=== PATIENT | male | born 1955 | race African-American/Black ===

== ENCOUNTER 2023-04-18 22:01 | Emergency (ER) | payer MEDICARE, MEDICAID, SELFPAY ==
--- NOTE | 2023-04-18 | ECG_ITS ---
Test Reason : FALL Blood Pressure : / mmHG Vent. Rate : 085 BPM Atrial Rate : 085 BPM P-R Int : 136 ms QRS Dur : 082 ms QT Int : 350 ms P-R-T Axes : 059 -23 029 degrees QTc Int : 416 ms Sinus rhythm with Premature atrial complexes in a pattern of bigeminy Nonspecific T wave abnormality Abnormal ECG No previous ECGs available Referred By: Generic ED Physician Electronically Signed By:Eleno Santana
--- NOTE | ~2023-04-18 | CT_ITS ---
EXAMINATION: NONCONTRAST HEAD CT NONCONTRAST CERVICAL SPINE CT INDICATION INFORMATION: Unwitnessed fall COMPARISON: None TECHNIQUE: Separate noncontrast CT examinations of the head and cervical spine were performed. Coronal and sagittal images were created for each examination at the technologist workstation. This CT examination was performed using dose optimization techniques as appropriate, variously including the following: *Automated exposure control *Adjustment of mA and/or kV according to patient size (this includes techniques or standardized protocols for targeted exams where dose is matched to indication/reason for exam; i.e. extremities or head) *Use of iterative reconstruction technique DLP: 1215 mGy-cm FINDINGS: Head: There is no evidence of acute intracranial hemorrhage or territorial infarction. No abnormal mass effect or midline shift is seen. Liang to white matter differentiation is well preserved. No extra-axial fluid collections are identified. No hydrocephalus. Proportional prominence of the ventricles and sulcal spaces is consistent with mild volume loss. There is slightly disproportionate atrophy of the cerebellum. There is no abnormal attenuation within the brain parenchyma. No acute osseous or soft tissue abnormality. The mastoid air cells and visualized portions of the paranasal sinuses are well aerated. Cervical spine: There is anatomic alignment of the vertebral bodies and posterior elements. The atlantoaxial and atlantooccipital articulations are intact. Vertebral body heights are maintained. Small endplate osteophytes present throughout the cervical spine. No evidence of acute fracture. No prevertebral soft tissue swelling. Visualized portions of the lung apices are unremarkable. The thyroid gland is unremarkable. The imaged upper thoracic esophagus is dilated, patulous and contains debris. CT/CT cervical spine wo IV con IMPRESSION: * No acute intracranial findings. * No acute fracture or malalignment of the cervical spine. * Patulous, dilated upper thoracic esophagus containing debris. Query postsurgical change or achalasia. Correlate with patient history. Recommend nonemergent esophagram as clinically indicated.
--- NOTE | ~2023-04-18 | CT_ITS ---
EXAMINATION: CT ABDOMEN AND PELVIS WITH CONTRAST CLINICAL INFORMATION: GI bleed COMPARISON: None available. TECHNIQUE: Multidetector volumetric images were obtained from the superior aspect of the liver through the pubic symphysis following administration 85 mL of Omnipaque 350 intravenous contrast. Sagittal and coronal reformatted images were obtained on the technologist's workstation. Oral contrast: No This CT examination was performed using dose optimization techniques as appropriate, variously including the following: *Automated exposure control *Adjustment of mA and/or kV according to patient size (this includes techniques or standardized protocols for targeted exams where dose is matched to indication/reason for exam; i.e. extremities or head) *Use of iterative reconstruction technique DLP: 719 mGy-cm FINDINGS: LUNG BASES: The visualized lung bases are unremarkable. LIVER, GALLBLADDER, AND BILIARY TREE: The liver is normal in size, shape, and attenuation. There are a few benign hepatic cysts. No suspicious liver lesions. No biliary ductal dilatation is present. The gallbladder is unremarkable with no evidence of radiopaque gallstones, gallbladder wall thickening, or obvious pericholecystic inflammatory changes. PANCREAS: There is a 9 mm cyst in the pancreatic body/tail junction. No pancreatic inflammation. SPLEEN: Unremarkable. ADRENAL GLANDS: Unremarkable. KIDNEYS AND URETERS: The kidneys are normal in size, shape, and attenuation. There are a few tiny renal cysts which appear simple. No follow-up imaging recommended. No hydronephrosis, hydroureter, or calculi seen. No perinephric stranding. BLADDER: Unremarkable. GASTROINTESTINAL TRACT: There is a small hiatal hernia. Distal esophagus is patulous and shows circumferential wall thickening. Small bowel unremarkable. Large amount of stool in the sigmoid colon and in particular the rectum without significant wall thickening or perirectal fat stranding. Normal appendix. ABDOMINAL WALL: No significant hernia is appreciated. LYMPH NODES: Normal. VASCULAR: Unremarkable. PELVIC VISCERA: Unremarkable. OSSEOUS STRUCTURES: No acute or suspicious osseous abnormalities. CT/CT abdomen pelvis w IV con IMPRESSION: * Circumferential wall thickening of the patulous distal esophagus. Esophagitis is considered. Recommend GI consult and esophagram if clinically indicated. * Large amount of stool in the sigmoid colon and in particular the rectum without evidence of stercoral colitis. * There is a 9 mm cyst in the pancreatic body/tail junction. Recommend MRI/MRCP for further evaluation.
[2023-04-18 22:17] VITALS: BP 114/66; BP 122/64; PULSE 56; PULSE 82; RESP 22; TEMP 37.2; O2SAT 98; BMI 21.6
--- NOTE | 2023-04-18 22:32 | PC.NURSE ---
pt has a hx of constipation, pt has a small loose brown stool
--- NOTE | 2023-04-18 23:09 | PC.NURSE ---
pt had a 2nd loose bm, Dr. Jean aware
--- NOTE | 2023-04-18 23:16 | ED.GENADULT ---
HPI - General Adult General Chief complaint: Fall Stated complaint: FELL OUT OF BED, NO LOC Time Seen by Provider: 04/18/23 23:06 Source: EMS Mode of arrival: EMS Limitations: other (Chronic TBI) History of Present Illness HPI narrative: Patient comes to the emergency room from [facility]. Seems that patient had an unwitnessed fall. Patient is poor historian, but denies pain anywhere other than abdominal cramping. Patient has no obvious injuries. On arrival, patient had 2 large bowel movements with diarrhea, no blood. Patient came without a list of medications, unclear if patient is on blood thinners. Related Data Previous Rx's Medication Instructions Recorded sodium phosphates 19 gram-7 118 ml MO DAILY 3 days #133 mL 04/19/23 gram/118 mL enema (Fleet Enema) Allergies Allergy/AdvReac Type Severity Reaction Status Date / Time Unable to Assess Allergy Unverified 04/18/23 23:11 Review of Systems Review of Systems: Complaining of abdominal cramping Yes Other (Poor historian, chronic TBI) [facility] Past Medical History Medical History (Updated 04/19/23 @ 01:46 by Tatiana Jean MD) Psychotic disorder Hyperlipidemia DVT (deep venous thrombosis) Epilepsy Diabetes mellitus Hypertension TBI (traumatic brain injury) Social History Social History Unable to assess alcohol history related to: Unknown Smoked in Last 30 Days: No Use of substances other than those prescribed or required for medical reasons: Unable to respond Advance Directives: Yes Advance Directives Information Provided: No Advance Directives on File: No Physical Exam ED Vital Signs: Vital Signs - 24 hr 04/18/23 22:17 Temperature 98.9 F Pulse Rate 82 Respiratory Rate 22 H Blood Pressure 114/66 Pulse Oximetry 98 Oxygen Delivery Method Room Air BMI result Body Mass Index 21.6 Medications Administered Generic Name Dose Route Start Last Admin Trade Name Freq PRN Reason Stop Dose Admin Sodium Chloride 1,000 mls @ 999 mls/hr 04/19/23 03:30 04/19/23 03:34 Ns IV 04/19/23 04:30 999 mls/hr .[id number] VERÓNICA Administration Discontinued Medications Generic Name Dose Route Start Last Admin Trade Name Freq PRN Reason Stop Dose Admin Iohexol 85 ml 04/19/23 02:54 04/19/23 02:55 Iohexol 350 Mg/Ml 100 Ml Infus..Btl IV 04/19/23 02:55 85 ml ONCE ONE Administration Loperamide HCl 4 mg 04/18/23 23:22 04/18/23 23:32 Loperamide Hcl 2 Mg Capsule PO 04/18/23 23:23 4 mg ONCE ONE Administration Medical Decision Making Medical Decision Making [facility] Narrative: -all of patient's labs plan -patient has had multiple diarrheal episodes in the ED. C diff pending, we do not have a list of medications, unknown if patient has been taking antibiotics, list of medications has been requesting from [facility] -patient's vitals stable, patient well-appearing -my interpretation of CT Sim: No intracranial bleed. -my interpretation of labs: White blood cell count within normal limits. Patient's hemoglobin is 10.0. No previous labs for comparison. Follow-up labs to be done at the patient's facility. Chemistry, no significant electrolyte abnormalities despite diarrhea. C diff toxin negative. Guaiac test was heme-positive. -we contacted [facility], per patient's nurse, patient's baseline hemoglobin is 9.4, hematocrit 30.9, stable since at least March 2023 -patient was given loperamide. -initials patient complain from the alf was constipation. Here, patient has had copious amounts of diarrhea. The we did not have a med list available [facility], unclear patient was given laxatives or enemas prior to arrival and they just started working -my interpretation of CT scan, there was still a large amount of stool in the sigmoid. -radiology report: Large amount of stool clusters a 9 mm cyst in the pancreas. MRCP/MRI recommended. -it is likely that patient's rectal bleeding is secondary to straining from constipation. However, patient may need a colonoscopy. We received records from [facility], patient is not on blood thinners Differential Diagnosis Differential Diagnoses: The differential diagnosis associated with the presentation includes (C diff, gastroenteritis, laxative affect) Lab Data [facility] Lab Attestation statement: I reviewed the patient's lab results. 04/19/23 00:22 04/19/23 00:22 Labs: Lab Results 04/18/23 04/19/23 04/19/23 Range/Units 23:41 00:22 01:50 WBC 5.8 (4.8-10.8) X10*3/uL RBC 4.45 L (4.60-5.80) X10*6/uL Hgb 10.0 L (14.0-18.0) g/dl Hct 33.0 L (42.0-52.0) % MCV 74.2 L (80.0-98.0) fL MCH 22.5 L (27.0-33.0) pg MCHC 30.3 L (31.0-36.0) g/dl RDW 18.4 H (11.0-16.0) % Plt Count 268 (160-400) X10*3/uL MPV 8.7 L (9.4-12.4) fL Immature Gran % (Auto) 0.3 (0.0-0.4) % Neut % (Auto) 83.2 H (45-73) % Lymph % (Auto) 8.3 L (20-40) % [place] % (Auto) 7.8 (2-11) % Eos % (Auto) 0.2 (0-4) % Baso % (Auto) 0.2 (0-2) % Lymph # (Auto) 0.5 L (1.2-4.9) X10*3/uL [place] # (Auto) 0.5 (0.1-1.2) X10*3/uL Eos # (Auto) 0.0 (0.0-0.4) X10*3/uL Baso # (Auto) 0.0 (0.0-0.2) X10*3/uL Abs Immat Gran (auto) 0.02 (0.00-0.03) X10*3/uL Absolute Neuts (auto) 4.8 (2.0-8.3) x10*3/uL Absolute Nucleated RBC 0.000 (0.0-0.012) X10*3/uL Nucleated RBC % (auto) 0.0 (0.0-0.2) /100WBC PT 22.8 H (11.1-13.3) SEC INR 1.9 H (0.9-1.1) Sodium 143 (135-145) mmol/L Potassium 3.7 (3.3-5.1) mmol/L Chloride 110 H (96-108) mmol/L Carbon Dioxide 24 (22-29) mmol/L Anion Gap 13 (12-20) BUN 20 H (9-16) mg/dL Creatinine 1.30 (0.5-1.4) mg/dL Estim Creat Clear Calc 57.7 Estimated GFR 55 Random Glucose 137 H (60-115) mg/dL Calcium 8.8 (8.4-10.2) mg/dL Magnesium 2.1 (1.6-2.6) mg/dL Total Bilirubin 0.4 (0.0-1.0) mg/dL AST 15 (5-37) U/L ALT 11 (0-40) U/L Alkaline Phosphatase 128 H (39-117) U/L Troponin I High Sens < 2.7 (<3.5-35.0) ng/L Total Protein 7.3 (6.5-8.0) g/dL Albumin 3.9 (3.5-5.0) g/dL Lipase 11 (8-78) U/L Stool Occult Blood POSITIVE (NEGATIVE) C. difficile Tox B Gene NEGATIVE (Negative) Independent Interpretation I performed an independent interpretation of an: CT Scan Radiology Impression Discussion of test interpretation with radiology: I have reviewed the radiologist's reading. Radiologist Impression: FINDINGS: Head: There is no evidence of acute intracranial hemorrhage or territorial infarction. No abnormal mass effect or midline shift is seen. Liang to white matter differentiation is well preserved. No extra-axial fluid collections are identified. No hydrocephalus. Proportional prominence of the ventricles and sulcal spaces is consistent with mild volume loss. There is slightly disproportionate atrophy of the cerebellum. There is no abnormal attenuation within the brain parenchyma. No acute osseous or soft tissue abnormality. The mastoid air cells and visualized portions of the paranasal sinuses are well aerated. Cervical spine: There is anatomic alignment of the vertebral bodies and posterior elements. The atlantoaxial and atlantooccipital articulations are intact. Vertebral body heights are maintained. Small endplate osteophytes present throughout the cervical spine. No evidence of acute fracture. No prevertebral soft tissue swelling. Visualized portions of the lung apices are unremarkable. The thyroid gland is unremarkable. The imaged upper thoracic esophagus is dilated, patulous and contains debris. CT/CT head/brain wo IV con IMPRESSION: * No acute intracranial findings. * No acute fracture or malalignment of the cervical spine. * Patulous, dilated upper thoracic esophagus containing debris. Query postsurgical change or achalasia. Correlate with patient history. Recommend nonemergent esophagram as clinically indicated. Independent Historian Clinical information obtained from an independent historian. History obtained from or confirmed by: EMS Critical Care Time Critical Care Time Critical Care Time: Yes Total Critical Care Time: 75 Attestation: I have personally provided critical care time. Time includes review of lab data, radiology results, discussion with consultants, and monitoring for potential decompensation. Intervention performed as documented. Discharge Plan Discharge Clinical Impression: Diarrhea Patient Disposition: Home, Self-Care Instructions: Acute Diarrhea (ED) Additional Instructions: Here in the emergency room, patient has had multiple large diarrhea bowel movements, negative for C diff. however, CT scan still shows a large amount of stool in the colon. Enemas may be helpful. Also, CT scan shows a cyst in the pancreas. Patient will need an MRI/MRCP through the primary care physician or gastroenterology. The stool tested positive for blood, likely secondary to straining. However, it is possible the patient may need a colonoscopy. Please follow-up with your primary care physician tomorrow. If you have any worsening or new symptoms, please return to the emergency room or call 911 Prescriptions: New Fleet Enema 19-7 gram/118 mL enema 118 ml MO DAILY 3 Days Qty: 133 3RF Referrals: Sridhar Love MD [Physician] - 04/22/23
[2023-04-18] MEDS: Loperamide HCl 2 MG CAPSULE 4 MG PO (23:32)
--- NOTE | 2023-04-18 23:44 | PC.NURSE ---
pt 3rd brown loose stool, sample obtained, pt to ct-scan
[2023-04-19 00:28] LABS: Basophils Percent Auto 0.2 % (0-2); Eosinophils Percent Auto 0.2 % (0-4); SCAN SMEAR FLAG 1
[2023-04-19 00:30] LABS: Imm Gran Abs Auto 0.02 X10*3/uL (0.00-0.03); Imm Gran Pct Auto 0.3 % (0.0-0.4); Lymphocytes Absolute Auto 0.5 X10*3/uL (1.2-4.9); Lymphocytes Percent Auto 8.3 % (20-40); Mean Corpuscular HGB Conc 30.3 g/dl (31.0-36.0); Mean Corpuscular Hemoglobin 22.5 pg (27.0-33.0); Mean Corpuscular Volume 74.2 fL (80.0-98.0); Mean Platelet Volume 8.7 fL (9.4-12.4); Monocytes Absolute Auto 0.5 X10*3/uL (0.1-1.2); Monocytes Percent Auto 7.8 % (2-11); Neutrophils Absolute Auto 4.8 x10*3/uL (2.0-8.3); Neutrophils Percent Auto 83.2 % (45-73); Platelet Count 268 X10*3/uL (160-400); Red Blood Count 4.45 X10*6/uL (4.60-5.80); Red Cell Distribution Width 18.4 % (11.0-16.0); White Blood Count 5.8 X10*3/uL (4.8-10.8)
[2023-04-19 00:35] LABS: INTERNATIONAL NORM RATIO 1.9 (0.9-1.1); Prothrombin Time 22.8 SEC (11.1-13.3)
[2023-04-19 00:38] LABS: CDiff Gene PCR NEGATIVE (Negative)
[2023-04-19 00:39] LABS: MANUAL DIFF FLAG NO; PLT ABN DIST 1
[2023-04-19 00:44] LABS: Alanine Aminotransferase 11 U/L (0-40); Albumin Level 3.9 g/dL (3.5-5.0); Alkaline Phosphatase 128 U/L (39-117); Anion Gap 13 (12-20); Aspartate Amino Transferase 15 U/L (5-37); Bilirubin Total 0.4 mg/dL (0.0-1.0); Blood Urea Nitrogen 20 mg/dL (9-16); Calcium 8.8 mg/dL (8.4-10.2); Carbon Dioxide 24 mmol/L (22-29); Chloride 110 mmol/L (96-108); Creatinine Clr Calc Pharmacy 57.7; Estimated Glomerular Filt Rate 55; Glucose Random 137 mg/dL (60-115); Lipase 11 U/L (8-78); Magnesium 2.1 mg/dL (1.6-2.6); Potassium 3.7 mmol/L (3.3-5.1); Sodium 143 mmol/L (135-145); Total Protein 7.3 g/dL (6.5-8.0)
[2023-04-19 00:57] LABS: Troponin-I High Sensitivity < 2.7 ng/L (<3.5-35.0)
--- NOTE | 2023-04-19 01:55 | PC.NURSE ---
obtained a fecal occult sample, pt tolerated well
[2023-04-19 01:58] LABS: OBS Int Ctl Valid YES; OBS1 POSITIVE (NEGATIVE)
--- NOTE | 2023-04-19 02:31 | PC.NURSE ---
pt assessed, clean and repositioned, pt has had several bouts of diarrhea, Dr. gaytan aware
--- NOTE | 2023-04-19 02:36 | PC.NURSE ---
pt to ct-scan
[2023-04-19] MEDS: iohexoL 350 MG/ML 100 ML INFUS..BTL 85 ML IV (02:55)
[2023-04-19] MEDS: 0.9 % Sodium Chloride 1,000 ML 999 ML IV (03:34)
--- NOTE | 2023-04-19 03:34 | PC.NURSE ---
NS infusing, pt unable to urinate
--- NOTE | 2023-04-19 03:49 | PC.NURSE ---
verbal report given to Nurse at [facility] in [place]
--- NOTE | 2023-04-19 03:51 | MHC.EDTECH ---
Call out to shanna at [phone] to book transport for pt, estimated eta given was [phone]
--- NOTE | 2023-04-19 04:06 | PC.NURSE ---
pt dressed to go back to SNF
== END 2023-04-19 03:49 | disposition home or self-care (01) ==
PROVIDERS: Emergency Provider Emergency Medicine; PCP Hospitalist
DX: K92.2 Gastrointestinal hemorrhage, unspecified (principal); R19.7 Diarrhea, unspecified; R51.9 Headache, unspecified; M54.2 Cervicalgia; R94.31 Abnormal electrocardiogram [ECG] [EKG]; Z79.899 Other long term (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
CPT/HCPCS: 36415; 70450; 72125; 74177; 80053; 82272; 83690; 83735; 84484; 85025; 85610; 87493; 93005; 99285; Q9967

== ENCOUNTER → 2023-04-18 22:29 | Outpatient (BNV) | payer MEDICARE, MEDICAID, SELFPAY | PROVIDERS: Emergency Provider Emergency Medicine; PCP Hospitalist; Visit Provider Internal Medicine Cardiovascular Disease | DX: I49.1 Atrial premature depolarization (principal) | CPT/HCPCS: 93010 ==

== ENCOUNTER 2023-05-04 21:08 | Emergency (ER) | payer MEDICARE, MEDICAID, SELFPAY ==
[2023-05-04 21:37] VITALS: BP 110/70; PULSE 101; O2SAT 96
[2023-05-04 21:42] VITALS: BMI 30.9
--- NOTE | 2023-05-04 21:58 | PC.NURSE ---
spoke with nurse Harrington on [place] unit: sts she observed one episode of emesis. Pt did receive all of his HS medications at facility. sts that pt speaks bulgarian, and is on a 1:1 at the facility for elopement concerns, as well as behavioral concerns.
[2023-05-04 22:25] VITALS: BP 166/96; PULSE 80; RESP 18; TEMP 36.8; O2SAT 97
--- NOTE | 2023-05-04 23:11 | ED_ITS ---
HPI - Nausea/Vomiting/Diarrhea General Chief complaint: Nausea/Vomiting/Diarrhea Stated complaint: vomiting coffee grounds Time Seen by Provider: 05/04/23 23:04 Source: patient Mode of arrival: EMS Limitations: altered mental status (Patient lacks insight as to why he is here in the emergency department) History of Present Illness HPI Narrative: 67-year-old male with a history of psychiatric disorder, hyperlipidemia, DVT, epilepsy, diabetes, hypertension, traumatic brain injury who was sent to the emergency department for evaluation of coffee-ground emesis. According to the ED nursing note the patient was constipated for a few days and had a bowel regimen today. Patient had a bowel movement at 16:30 hours and then had an episode of vomiting which was described as coffee-ground emesis. The patient has a history of traumatic brain injury and lacks insight as to why he is here in the emergency department. He has no complaints. He denied abdominal pain, he denied nausea. Related Data Previous Rx's Medication Instructions Recorded sodium phosphates 19 gram-7 118 ml LA DAILY 3 days #133 mL 04/19/23 gram/118 mL enema (Fleet Enema) Allergies Allergy/AdvReac Type Severity Reaction Status Date / Time Unable to Assess Allergy Unverified 04/18/23 23:11 Review of Systems 2 Review of Systems: Yes all other systems are reviewed and are negative PMFSH Past Medical History Medical History Psychotic disorder Hyperlipidemia DVT (deep venous thrombosis) Epilepsy Diabetes mellitus Hypertension TBI (traumatic brain injury) Social History Social History Unable to assess alcohol history related to: Unknown Advance Directives: No Advance Directives Information Provided: No Physical Exam 2 Vital Signs: Vital Signs: Last Vital Signs Temp 98.3 F 05/04/23 22:25 Pulse 80 05/04/23 22:25 Resp 18 05/04/23 22:25 BP 166/96 H 05/04/23 22:25 Pulse Ox 97 05/04/23 22:25 O2 Del Method Room Air 05/04/23 22:25 BMI result Body Mass Index 30.9 Vital signs revealed an elevated blood pressure of 166/96 otherwise unremarkable Exam: General: Awake, oriented to person, lacks insight as to why he is here in the emergency 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 manager: Normocephalic, atraumatic EENT: PERRL, Lids normal, sclera normal, conjunctiva normal, nose normal , ears normal, throat without erythema or exudates Neck: Supple, no adenopathy, no trachea midline or C-spine tenderness Lung: breath sounds symmetric, no wheezing, rales or rhonchi Chest: symmetric movement, nontender Heart: regular rate and rhythm, normal S1, S2 no murmurs or rubs Abdomen: soft, non-tender, nondistended, normal bowel sounds Back: no vertebral tenderness, no CVAT Extremities: no deformities, moves all extremities symmetrically Neuro: Awake, alert, oriented to person, cranial nerves intact, moves all extremities symmetrically Psych: Pleasant, cooperative Medications Administered Discontinued Medications Generic Name Dose Route Start Last Admin Trade Name Freq PRN Reason Stop Dose Admin Lorazepam 2 mg 05/05/23 00:04 05/05/23 00:10 Lorazepam 1 Mg Tablet PO 05/05/23 00:05 2 mg ONCE STA Administration Medical Decision Making Medical Decision Making [facility] Narrative: 67-year-old male with a history of psychiatric disorder, hyperlipidemia, DVT, epilepsy, diabetes, hypertension, traumatic brain injury who was sent to the emergency department for evaluation of coffee-ground emesis x1 episode that occurred around 16:30 hours. The patient has a history of traumatic brain injury and lacks insight as to why he is here in the emergency department. He has no complaints. He denied abdominal pain, he denied nausea. Exam was unremarkable. Following evaluation was ordered: CBC, CMP, lipase, PT/INR, PTT 00:59 My interpretation of the patient's laboratory evaluation is as follows: WBC low 4300. Anemia with an H&H of 8.9 and 28.7 with a low MCV of 70.7. This is compared to an H&H of 10 and 33 from 04/19/2023. Patient's BUN was 18 which was similar to his previous BUN, creatinine was normal 0.95. The rest the CMP was normal. Patient did have a drop in his H&H but no significant elevation in his BUN, patient has had no further episodes of vomiting since he has been here in the emergency department. At this time, I do not think that the patient needs to be hospitalized can be sent back to [facility] and they can follow his H&H. I do not have a medication list on this patient, but I will recommend that he be placed on Prilosec 20 mg once a day if he is not already taking H2 dilshad. Differential Diagnosis Differential Diagnoses: The differential diagnosis associated with the presentation includes Differential diagnosis includes was not limited to upper GI bleed, viral syndrome, electrolyte abnormalities, anemia Admission/Observation Consideration of admission/observation: Escalation of care including admission/observation considered Lab Data [facility] Lab Attestation statement: I reviewed the patient's lab results. See MDM above 05/05/23 00:29 05/04/23 22:58 Labs: Lab Results 05/04/23 05/05/23 Range/Units 22:58 00:29 WBC 4.3 L (4.8-10.8) X10*3/uL RBC 4.06 L (4.60-5.80) X10*6/uL Hgb 8.9 L (14.0-18.0) g/dl Hct 28.7 L (42.0-52.0) % MCV 70.7 L (80.0-98.0) fL MCH 21.9 L (27.0-33.0) pg MCHC 31.0 (31.0-36.0) g/dl RDW 20.1 H (11.0-16.0) % Plt Count 351 D (160-400) X10*3/uL MPV 8.7 L (9.4-12.4) fL Immature Gran % (Auto) 0.2 (0.0-0.4) % Neut % (Auto) 67.0 (45-73) % Lymph % (Auto) 22.8 (20-40) % [place] % (Auto) 8.8 (2-11) % Eos % (Auto) 0.7 (0-4) % Baso % (Auto) 0.5 (0-2) % Lymph # (Auto) 1.0 L (1.2-4.9) X10*3/uL [place] # (Auto) 0.4 (0.1-1.2) X10*3/uL Eos # (Auto) 0.0 (0.0-0.4) X10*3/uL Baso # (Auto) 0.0 (0.0-0.2) X10*3/uL Abs Immat Gran (auto) 0.01 (0.00-0.03) X10*3/uL Absolute Neuts (auto) 2.9 (2.0-8.3) x10*3/uL Absolute Nucleated RBC 0.000 (0.0-0.012) X10*3/uL Nucleated RBC % (auto) 0.0 (0.0-0.2) /100WBC Sodium 136 (135-145) mmol/L Potassium 4.6 D (3.3-5.1) mmol/L Chloride 105 (96-108) mmol/L Carbon Dioxide 21 L (22-29) mmol/L Anion Gap 15 (12-20) BUN 18 H (9-16) mg/dL Creatinine 0.95 (0.5-1.4) mg/dL Estim Creat Clear Calc 72.7 Estimated GFR > 60 Random Glucose 104 (60-115) mg/dL Calcium 8.4 (8.4-10.2) mg/dL Total Bilirubin 0.2 (0.0-1.0) mg/dL AST 17 (5-37) U/L ALT 9 (0-40) U/L Alkaline Phosphatase 91 (39-117) U/L Total Protein 6.8 (6.5-8.0) g/dL Albumin 3.7 (3.5-5.0) g/dL Lipase 11 (8-78) U/L Chronic Conditions Patient?s care impacted by: Other (Traumatic brain injury) Discharge Plan Discharge Clinical Impression: Hematemesis Qualifiers: Nausea presence: without nausea Qualified Code(s): K92.0 - Hematemesis Patient Disposition: [facility] Transfer Details: [facility] Instructions: Hematemesis (ED) Additional Instructions: Your H&H was similar to her previous tests. Today your H&H was 8.9 and 28.7, previously on 04/19/2023 was 10 and 33.0. You do have a low MCV. I am recommending that you get started on iron supplements and H2 dilshad such as Prilosec if you are not RAD on these medications. I do not have a medication list at this time. Your care facility will need to trend your H&H determine if you need blood transfusions or further evaluation of your iron deficiency anemia. Follow-up with your doctor in 2 days. Please return to the emergency department if your symptoms get worse or if you develop any symptoms that are concerning to you. Prescriptions: No Action Fleet Enema 19-7 gram/118 mL enema 118 ml LA DAILY 3 Days Qty: 133 3RF
[2023-05-04 23:25] LABS: Alanine Aminotransferase 9 U/L (0-40); Albumin Level 3.7 g/dL (3.5-5.0); Alkaline Phosphatase 91 U/L (39-117); Anion Gap 15 (12-20); Aspartate Amino Transferase 17 U/L (5-37); Bilirubin Total 0.2 mg/dL (0.0-1.0); Blood Urea Nitrogen 18 mg/dL (9-16); Calcium 8.4 mg/dL (8.4-10.2); Carbon Dioxide 21 mmol/L (22-29); Chloride 105 mmol/L (96-108); Creatinine Clr Calc Pharmacy 72.7; Estimated Glomerular Filt Rate > 60; Glucose Random 104 mg/dL (60-115); Lipase 11 U/L (8-78); Potassium 4.6 mmol/L (3.3-5.1); Sodium 136 mmol/L (135-145); Total Protein 6.8 g/dL (6.5-8.0)
[2023-05-05] MEDS: LORazepam 1 MG TABLET 2 MG PO (00:10)
[2023-05-05 00:36] LABS: Basophils Percent Auto 0.5 % (0-2); Eosinophils Percent Auto 0.7 % (0-4); Hematocrit 28.7 % (42.0-52.0); Hemoglobin 8.9 g/dl (14.0-18.0); Imm Gran Abs Auto 0.01 X10*3/uL (0.00-0.03); Imm Gran Pct Auto 0.2 % (0.0-0.4); Lymphocytes Percent Auto 22.8 % (20-40); Mean Corpuscular Hemoglobin 21.9 pg (27.0-33.0); Mean Corpuscular Volume 70.7 fL (80.0-98.0); Mean Platelet Volume 8.7 fL (9.4-12.4); Monocytes Absolute Auto 0.4 X10*3/uL (0.1-1.2); Monocytes Percent Auto 8.8 % (2-11); Neutrophils Absolute Auto 2.9 x10*3/uL (2.0-8.3); Platelet Count 351 X10*3/uL (160-400); Red Blood Count 4.06 X10*6/uL (4.60-5.80); Red Cell Distribution Width 20.1 % (11.0-16.0); White Blood Count 4.3 X10*3/uL (4.8-10.8)
[2023-05-05 01:07] LABS: MANUAL DIFF FLAG NO
== END 2023-05-05 03:32 | disposition home or self-care (01) ==
PROVIDERS: Absent Provider Hospitalist; Emergency Provider Emergency Medicine Emergency Medical Services; PCP Hospitalist
DX: R11.2 Nausea with vomiting, unspecified (principal); Z79.899 Other long term (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; Z87.820 Personal history of traumatic brain injury
CPT/HCPCS: 36415; 80053; 83690; 85025; 99283

== ENCOUNTER 2023-05-16 09:22 | Outpatient (REF) | payer MEDICARE, MEDICAID, SELFPAY ==
--- NOTE | ~2023-05-16 | XR_ITS ---
EXAMINATION: XR ABDOMEN KUB CLINICAL INDICATION: Constipation COMPARISON: CT abdomen from 04/19/2023 TECHNIQUE: AP view of the abdomen. FINDINGS: Mild to moderate fecal loading of the colon greatest in its ascending segment. No dilated loops of bowel visualized. Degenerative changes of the thoracolumbar lumbosacral spine. Soft tissues are unremarkable. XR/XR KUB IMPRESSION: 1. Mild to moderate fecal loading of the colon greatest in its ascending segment. 2. No dilated loops of bowel visualized.
== END 2023-05-16 09:23 | disposition home or self-care (01) ==
LOC: HO.XRAY 09:22
PROVIDERS: PCP Hospitalist; Visit Provider Hospitalist
DX: R10.11 Right upper quadrant pain (principal)
CPT/HCPCS: 74018

== ENCOUNTER → 2023-06-07 14:13 | Outpatient (BNVA) | payer MEDICARE, MEDICAID, SELFPAY | PROVIDERS: PCP Hospitalist; Visit Provider Nurse Practitioner Family ==

== ENCOUNTER 2023-06-14 10:27 | Emergency (ER) | payer MEDICARE, MEDICAID, SELFPAY ==
--- NOTE | ~2023-06-14 | CT_ITS ---
EXAMINATION: CT HEAD WITHOUT CONTRAST CT CERVICAL SPINE WITHOUT CONTRAST CLINICAL INFORMATION: 67-year-old male status post fall COMPARISON: 04/18/2023 TECHNIQUE: CT of the head and cervical spine were performed without intravenous contrast. Multiplanar reformats were rendered and reviewed. This CT examination was performed using dose optimization techniques as appropriate, variously including the following: *Automated exposure control *Adjustment of mA and/or kV according to patient size (this includes techniques or standardized protocols for targeted exams where dose is matched to indication/reason for exam; i.e. extremities or head) *Use of iterative reconstruction technique DLP: 1215 mGy-cm. FINDINGS: CT head: No intracranial hemorrhage, large infarction, or mass lesion is seen. No extra-axial collection is appreciated. The ventricles are normal in size and configuration without evidence of hydrocephalus. The visualized paranasal sinuses and mastoid air cells are clear. CT cervical spine: The vertebral body heights appear maintained. No cervical spine fracture is seen. The cervical alignment appears normal. The paraspinal soft tissues appear within normal limits. The partially imaged lung apices appear clear. CT/CT cervical spine wo IV con IMPRESSION: CT head: No acute intracranial finding. CT cervical spine: No cervical spine fracture or traumatic malalignment identified.
--- NOTE | ~2023-06-14 | CT_ITS ---
EXAMINATION: CT CHEST, ABDOMEN, AND PELVIS WITH CONTRAST CLINICAL INFORMATION: Status post fall questionable hip fracture COMPARISON: CT abdomen and pelvis from 04/19/2023 TECHNIQUE: Multidetector volumetric CT imaging of the chest, abdomen, and pelvis was obtained after the administration of 100 mL of Omnipaque 300 intravenous contrast without immediate adverse reactions. Axial MIP volume rendering provided. Sagittal and coronal reformatted images were obtained. This CT examination was performed using dose optimization techniques as appropriate, variously including the following: *Automated exposure control *Adjustment of mA and/or kV according to patient size (this includes techniques or standardized protocols for targeted exams where dose is matched to indication/reason for exam; i.e. extremities or head) *Use of iterative reconstruction technique DLP: 539.15 mGy-cm FINDINGS: LUNGS: There is mixed attenuation nodule in the right middle lobe with calcified component measured 0.5 cm. Calcified granuloma in the right upper lobe MEDIASTINUM: There is no pericardial effusion. There is no mediastinal lymphadenopathy or hilar lymphadenopathy seen. Aorta is not dilated There is achalasia with air-fluid level. CORONARY ARTERY CALCIFICATION: Not seen PLEURA: There is no pleural effusion. No pleural mass or thickening. AXILLA: No lymphadenopathy by size criteria. LIVER, GALLBLADDER, AND BILIARY TREE: There are a few low-attenuation lesions in the liver consistent with the appearance of cysts stable since previous study of April 2023. Contracted or surgically absent PANCREAS: Evaluation of pancreas is limited due to noncontrast technique and motion and questionable low-attenuation lesion in the pancreatic body-tail seen on previous study is stable, measured approximately 0.9 cm. SPLEEN: Unremarkable ADRENAL GLANDS: Unremarkable KIDNEYS AND URETERS: The kidneys appear unremarkable in size, shape, and attenuation. No hydronephrosis, hydroureter, or calculi seen. BLADDER: Unremarkable GASTROINTESTINAL TRACT: There is constipation with large amount of feces in the colon and appendix is normal. There is small hiatal hernia. ABDOMINAL WALL: No significant hernia is appreciated. LYMPH NODES: No evidence of adenopathy by size criteria. VASCULAR: Unremarkable. PELVIC VISCERA: Unremarkable OSSEOUS STRUCTURES: Due to significant motion artifact evaluation of fractures of the left hip is limited. If clinically indicated follow-up by additional imaging of the left hip and pelvis. CT/CT abdomen pelvis wo IV con IMPRESSION: 1. Limited evaluation of left hip and fracture couldn't be ruled out. 2. Right middle lobe calcified lung nodule and calcified granuloma in the right upper lobe. 3. Stable hepatic cysts. 4. Stable low-attenuation lesion in the pancreatic body-tail, most likely cyst. 5. Small hiatal hernia. Achalasia 6. Constipation.
--- NOTE | ~2023-06-14 | XR_ITS ---
EXAMINATION: XR SHOULDER, RIGHT CLINICAL INFORMATION: Right shoulder pain COMPARISON: None available. TECHNIQUE: AP external rotation, Grashey, scapular Y, and axillary views of the right shoulder. FINDINGS: The bones and soft tissues are normal. No fracture. Glenohumeral and acromioclavicular alignment is anatomic with normal joint space. No abnormal soft tissue calcifications. XR/XR shoulder RT min 2V IMPRESSION: Normal right shoulder.
--- NOTE | ~2023-06-14 | CT_ITS ---
EXAMINATION: CT HEAD WITHOUT CONTRAST CT CERVICAL SPINE WITHOUT CONTRAST CLINICAL INFORMATION: 67-year-old male status post fall COMPARISON: 04/18/2023 TECHNIQUE: CT of the head and cervical spine were performed without intravenous contrast. Multiplanar reformats were rendered and reviewed. This CT examination was performed using dose optimization techniques as appropriate, variously including the following: *Automated exposure control *Adjustment of mA and/or kV according to patient size (this includes techniques or standardized protocols for targeted exams where dose is matched to indication/reason for exam; i.e. extremities or head) *Use of iterative reconstruction technique DLP: 1215 mGy-cm. FINDINGS: CT head: No intracranial hemorrhage, large infarction, or mass lesion is seen. No extra-axial collection is appreciated. The ventricles are normal in size and configuration without evidence of hydrocephalus. The visualized paranasal sinuses and mastoid air cells are clear. CT cervical spine: The vertebral body heights appear maintained. No cervical spine fracture is seen. The cervical alignment appears normal. The paraspinal soft tissues appear within normal limits. The partially imaged lung apices appear clear. CT/CT head/brain wo IV con IMPRESSION: CT head: No acute intracranial finding. CT cervical spine: No cervical spine fracture or traumatic malalignment identified.
[2023-06-14 10:58] VITALS: BP 125/78; BP 126/68; PULSE 72; PULSE 74; RESP 17; TEMP 36.8; O2SAT 100; O2SAT 99; BMI 23.2
--- NOTE | 2023-06-14 11:43 | ECG_ITS ---
Test Reason : fall Blood Pressure : / mmHG Vent. Rate : 066 BPM Atrial Rate : 066 BPM P-R Int : 146 ms QRS Dur : 080 ms QT Int : 384 ms P-R-T Axes : 060 -25 035 degrees QTc Int : 402 ms Normal sinus rhythm Normal ECG When compared with ECG of 18-APR-2023 22:29, Premature atrial complexes are no longer Present Non-specific change in ST segment in Inferior leads Nonspecific T wave abnormality no longer evident in Lateral leads Referred By: Sd Freitas Electronically Signed By:CARI ROMO
--- NOTE | 2023-06-14 12:05 | ED.GENADULT ---
HPI - General Adult General Chief complaint: Fall Stated complaint: FALL + THINNERS - LOC Time Seen by Provider: 06/14/23 11:15 Source: patient Mode of arrival: ambulatory Limitations: no limitations History of Present Illness HPI narrative: 67 yold male with past medical history of TBI, chronic lower extremity DVT, and hypertension presents to ED for fall that was witnessed at [facility] facility. Patient was walking to the bathroom and he fell hit his head on a door and onto the ground. As per nurse patient states he felt dizzy and then fell. Patient confirmed he felt dizzy while walking and fell onto the ground. Patient states mild right shoulder pain. Patient denies any other complaint. Related Data Previous Rx's Medication Instructions Recorded sodium phosphates 19 gram-7 118 ml IN DAILY 3 days #133 mL 04/19/23 gram/118 mL enema (Fleet Enema) Allergies Allergy/AdvReac Type Severity Reaction Status Date / Time No Known Drug Allergies Allergy Unknown none Verified 06/07/23 14:34 Review of Systems Review of Systems: RIght shoulder pain and headache Yes all other systems are reviewed and are negative [facility] Past Medical History Medical History Psychotic disorder Hyperlipidemia DVT (deep venous thrombosis) Epilepsy Diabetes mellitus Hypertension TBI (traumatic brain injury) Social History Social History Unable to assess alcohol history related to: Unknown Smoked in Last 30 Days: No Use of substances other than those prescribed or required for medical reasons: No Advance Directives: No Advance Directives Information Provided: No Physical Exam ED Vital Signs: Vital Signs - 24 hr 06/14/23 10:58 06/14/23 14:08 Temperature 98.3 F Pulse Rate 72 73 Respiratory Rate 17 16 Blood Pressure 125/78 143/96 H Pulse Oximetry 99 96 Oxygen Delivery Method Room Air Room Air BMI result Body Mass Index 23.2 Const General: cooperative, healthy appearing, comfortable, no acute distress, well developed, alert, awake and Physically active Orientation/consciousness: oriented to person, oriented to place, oriented to time and patient oriented x3 HENMT Head: Yes normal to inspection, Yes No palpable skull fracture present, Yes normocephalic and Yes atraumatic Eyes General: appearance normal, both eyes and all related structures Neck Neck: Yes normal visual inspection, Yes full ROM, Yes no lymphadenopathy, Yes no meningeal signs, Yes trachea midline, Yes supple, No anterior neck swelling and No tender Chest Chest palpation & inspection: normal inspection of the chest and normal palpation of entire chest wall Resp Effort & Inspection: normal respiratory effort and able to speak in complete sentences Auscultation: clear to auscultation bilaterally Cardio Jugular venous distension: no JVD Heart sounds: S1 normal heart sound present and S2 normal heart sound present GI Inspection: Yes normal to inspection and No abdominal wall ecchymosis Palpation (GI): Soft to palpation, not firm, nontender, no guarding and not rigid General: No CVA tenderness and Yes no CVA tenderness Back/Spine/Pelvis Back: no CVA tenderness, No CVA tenderness and No back tenderness Skin General skin exam: no rashes or lesions noted, elasticity normal and turgor normal Neuro General: oriented to person, oriented to place, oriented to time, patient oriented x3, gait normal, tone normal, moves all extremities, Normal light touch and pain sensation, no meningeal signs, no focal motor deficits, CN's II-XI intact bilaterally and normal sensation to monofilament Extrem General: Yes normal to inspection, Yes full ROM and Yes capillary refill normal Shoulder/upper arm images: 1. Slight tenderness on palpation. Negative for any crepitus, ecchymosis, redness, swelling, or deformity. Motor/neuro/vascular exam of whole extremity intact. Psych Appearance: grossly normal, well kempt and not disheveled Medical Decision Making Medical Decision Making MDM Narrative: 67-year-old male history of chronic lower extremity DVT, hypertension, TBI from [place] injury, presents to ED for witnessed fall that occurred around 925 this morning. With nurse from [facility] team who states patient states he felt dizzy and then fell. Patient confirmed getting dizzy and then fall to the ground. There was no loss of consciousness. Patient on blood thinner. Labs and images ordered. 3:44pm: Patient's images came back normal and negative. Patient walk around the ED with normal gait without any limp. Not suspecting any lower extremity or hip fracture. Troponin EKG normal. Patient is safe for discharge to go back Differential Diagnosis Differential Diagnoses: The differential diagnosis associated with the presentation includes (Brain bleed, cervical spine fracture, skull fracture, shoulder fracture,) Admission/Observation Consideration of admission/observation: Escalation of care including admission/observation considered Lab Data MDM Lab Attestation statement: I reviewed the patient's lab results. 06/14/23 12:41 06/14/23 12:41 Labs: Lab Results 06/14/23 06/14/23 Range/Units 12:41 14:48 WBC 2.5 L (4.8-10.8) X10*3/uL RBC 4.41 L (4.60-5.80) X10*6/uL Hgb 10.9 L D (14.0-18.0) g/dl Hct 35.1 L D (42.0-52.0) % MCV 79.6 L (80.0-98.0) fL MCH 24.7 L (27.0-33.0) pg MCHC 31.1 (31.0-36.0) g/dl RDW 24.3 H (11.0-16.0) % Plt Count 246 D (160-400) X10*3/uL MPV 8.6 L (9.4-12.4) fL Immature Gran % (Auto) 0.4 (0.0-0.4) % Neut % (Auto) 45.7 (45-73) % Lymph % (Auto) 38.1 (20-40) % [place] % (Auto) 8.7 (2-11) % Eos % (Auto) 6.3 H (0-4) % Baso % (Auto) 0.8 (0-2) % Lymph # (Auto) 1.0 L (1.2-4.9) X10*3/uL [place] # (Auto) 0.2 (0.1-1.2) X10*3/uL Eos # (Auto) 0.2 (0.0-0.4) X10*3/uL Baso # (Auto) 0.0 (0.0-0.2) X10*3/uL Abs Immat Gran (auto) 0.01 (0.00-0.03) X10*3/uL Absolute Neuts (auto) 1.2 L (2.0-8.3) x10*3/uL Absolute Nucleated RBC 0.000 (0.0-0.012) X10*3/uL Nucleated RBC % (auto) 0.0 (0.0-0.2) /100WBC PT 16.9 H D (11.1-13.3) SEC INR 1.4 H (0.9-1.1) APTT 34.0 (26.0-36.8) SEC Sodium 141 (135-145) mmol/L Potassium 4.1 (3.3-5.1) mmol/L Chloride 107 (96-108) mmol/L Carbon Dioxide 26 (22-29) mmol/L Anion Gap 12 (12-20) BUN 11 (9-16) mg/dL Creatinine 0.82 (0.5-1.4) mg/dL Estim Creat Clear Calc 84.5 Estimated GFR > 60 Random Glucose 101 (60-115) mg/dL Calcium 9.2 D (8.4-10.2) mg/dL Total Bilirubin 0.2 (0.0-1.0) mg/dL AST 14 (5-37) U/L ALT 8 (0-40) U/L Alkaline Phosphatase 95 (39-117) U/L Troponin I High Sens < 2.7 4.2 D (<3.5-35.0) ng/L Total Protein 7.2 (6.5-8.0) g/dL Albumin 4.0 (3.5-5.0) g/dL Independent Interpretation I performed an independent interpretation of an: EKG (Normal sinus rhythm. Negative STEMI), Plain X-Ray and CT Scan Radiology Impression Discussion of test interpretation with radiology: I have reviewed the radiologist's reading. Independent Historian Clinical information obtained from an independent historian. History obtained from or confirmed by: Other (Nurse from [facility]) Chronic Conditions Patient?s care impacted by: Other (TBI) Discharge Plan Discharge Clinical Impression: Fall Patient Disposition: Xfer LTC Transfer Details: BACK TO [facility] Instructions: Fall Prevention for Older Adults (ED) Additional Instructions: Recommend follow-up with primary care provider. Return to the ED immediately for any headache, nausea, vomiting, dizziness, chest pain, shortness of breath, pain in extremity, redness, bluish black discoloration, blood in stool, bloody urine, vomiting blood, or any other concerning symptoms. Prescriptions: No Action Fleet Enema 19-7 gram/118 mL enema 118 ml IN DAILY 3 Days Qty: 133 3RF Referrals: [facility] [Outside] Jeramie Schwartz DO [Primary Care Provider] - Discharge Date/Time: 06/14/23 19:39 Print Language: Hebrew
[2023-06-14 12:48] LABS: MANUAL DIFF FLAG NO
[2023-06-14 12:51] LABS: Basophils Percent Auto 0.8 % (0-2); Eosinophils Absolute Auto 0.2 X10*3/uL (0.0-0.4); Eosinophils Percent Auto 6.3 % (0-4); Hematocrit 35.1 % (42.0-52.0); Hemoglobin 10.9 g/dl (14.0-18.0); Imm Gran Abs Auto 0.01 X10*3/uL (0.00-0.03); Imm Gran Pct Auto 0.4 % (0.0-0.4); Lymphocytes Percent Auto 38.1 % (20-40); Mean Corpuscular HGB Conc 31.1 g/dl (31.0-36.0); Mean Corpuscular Hemoglobin 24.7 pg (27.0-33.0); Mean Corpuscular Volume 79.6 fL (80.0-98.0); Mean Platelet Volume 8.6 fL (9.4-12.4); Monocytes Absolute Auto 0.2 X10*3/uL (0.1-1.2); Monocytes Percent Auto 8.7 % (2-11); Neutrophils Absolute Auto 1.2 x10*3/uL (2.0-8.3); Neutrophils Percent Auto 45.7 % (45-73); Platelet Count 246 X10*3/uL (160-400); Red Blood Count 4.41 X10*6/uL (4.60-5.80); Red Cell Distribution Width 24.3 % (11.0-16.0); White Blood Count 2.5 X10*3/uL (4.8-10.8)
[2023-06-14 12:57] LABS: INTERNATIONAL NORM RATIO 1.4 (0.9-1.1); Prothrombin Time 16.9 SEC (11.1-13.3)
[2023-06-14 13:13] LABS: Troponin-I High Sensitivity < 2.7 ng/L (<3.5-35.0)
[2023-06-14 13:17] LABS: Alanine Aminotransferase 8 U/L (0-40); Alkaline Phosphatase 95 U/L (39-117); Anion Gap 12 (12-20); Aspartate Amino Transferase 14 U/L (5-37); Bilirubin Total 0.2 mg/dL (0.0-1.0); Blood Urea Nitrogen 11 mg/dL (9-16); Calcium 9.2 mg/dL (8.4-10.2); Carbon Dioxide 26 mmol/L (22-29); Chloride 107 mmol/L (96-108); Creatinine Clr Calc Pharmacy 84.5; Estimated Glomerular Filt Rate > 60; Glucose Random 101 mg/dL (60-115); Potassium 4.1 mmol/L (3.3-5.1); Sodium 141 mmol/L (135-145); Total Protein 7.2 g/dL (6.5-8.0)
[2023-06-14 14:08] VITALS: BP 143/96; PULSE 73; RESP 16; O2SAT 96
[2023-06-14 15:33] LABS: Troponin-I High Sensitivity 4.2 ng/L (<3.5-35.0)
== END 2023-06-14 19:39 ==
PROVIDERS: Physician Assistant; Emergency Provider Emergency Medicine; PCP Hospitalist
DX: R42 Dizziness and giddiness (principal); M25.511 Pain in right shoulder; R51.9 Headache, unspecified; Z91.81 History of falling; R79.1 Abnormal coagulation profile; E11.9 Type 2 diabetes mellitus without complications; I10 Essential (primary) hypertension; E78.5 Hyperlipidemia, unspecified; Z87.820 Personal history of traumatic brain injury; Z86.718 Personal history of other venous thrombosis and embolism; Z79.899 Other long term (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
CPT/HCPCS: 36415; 70450; 71250; 72125; 73030; 74176; 80053; 84484; 85025; 85610; 85730; 93005; 99284

== ENCOUNTER → 2023-06-14 11:43 | Outpatient (BNV) | payer MEDICARE, MEDICAID, SELFPAY | PROVIDERS: Emergency Provider Emergency Medicine; PCP Hospitalist; Visit Provider Internal Medicine | DX: I49.1 Atrial premature depolarization (principal) | CPT/HCPCS: 93010 ==

== ENCOUNTER 2023-08-22 11:15 | Emergency (ER) | payer MEDICARE, MEDICAID, SELFPAY ==
--- NOTE | ~2023-08-22 | XR_ITS ---
EXAMINATION: XR CHEST CLINICAL INFORMATION: Fall. COMPARISON: CT chest June 14, 2023 TECHNIQUE: Frontal view of the chest was obtained. 3:04 PM FINDINGS: Lung volume is low. This causes crowding the bronchovascular markings. No overt pulmonary edema. No focal consolidation. No pleural effusion and no pneumothorax. Heart size is normal. Cardiac mediastinal contours are normal. XR/XR chest 1V IMPRESSION: Low lung volume. No acute abnormality of the chest.
--- NOTE | ~2023-08-22 | CT_ITS ---
EXAMINATION: CT ABDOMEN AND PELVIS WITH CONTRAST CLINICAL INFORMATION: Abdominal pain, vomiting and distention. COMPARISON: CT abdomen and pelvis 06/14/2023. TECHNIQUE: Multidetector volumetric images were obtained from the superior aspect of the liver through the pubic symphysis following administration 85 mL of Omnipaque 350 intravenous contrast. Sagittal and coronal reformatted images were obtained on the technologist's workstation. Oral contrast: No This CT examination was performed using dose optimization techniques as appropriate, variously including the following: *Automated exposure control *Adjustment of mA and/or kV according to patient size (this includes techniques or standardized protocols for targeted exams where dose is matched to indication/reason for exam; i.e. extremities or head) *Use of iterative reconstruction technique DLP: 461 mGy-cm FINDINGS: LUNG BASES: There is a new pleural-based nodular density in the right middle lobe measuring 10 x 7 mm (4:30). No consolidations or pleural effusions. LIVER, GALLBLADDER, AND BILIARY TREE: The liver is normal in size, shape, and attenuation. Benign-appearing hepatic cysts are once again seen. No worrisome solid focal hepatic lesion or biliary ductal dilatation is present. The gallbladder is unremarkable with no evidence of radiopaque gallstones, gallbladder wall thickening, or obvious pericholecystic inflammatory changes. PANCREAS: Unremarkable. SPLEEN: Unremarkable. ADRENAL GLANDS: Unremarkable. KIDNEYS AND URETERS: The kidneys are normal in size, shape, and attenuation. No hydronephrosis, hydroureter, or calculi seen. No perinephric stranding. BLADDER: Unremarkable. GASTROINTESTINAL TRACT: Moderate stool is present in the colon with a large stool ball in the rectum. No bowel obstruction The small and large bowel are otherwise unremarkable. The appendix is unremarkable. ABDOMINAL WALL: No significant hernia is appreciated. LYMPH NODES: Normal. VASCULAR: Unremarkable. PELVIC VISCERA: There is mild BPH. Seminal vesicles appear normal. OSSEOUS STRUCTURES: Unremarkable. CT/CT abdomen pelvis w IV con IMPRESSION: 1. A cause for the patient's abdominal pain, vomiting and distention has not been found. 2. New 10 x 7 mm pleural-based nodular density right middle lobe. 3. Benign hepatic cysts. 4. Moderate stool in the colon with large stool ball in the rectum. 5. Mild BPH. According to the UPDATED 2017 Fleischner Society recommendations, the advised follow-up imaging for a single solid nodule measuring greater than [address] CT at 3 months, PET/CT, or tissue sampling as clinically appropriate.
--- NOTE | 2023-08-22 11:23 | ED.NAVMDI ---
HPI - Nausea/Vomiting/Diarrhea General Chief complaint: General Medical Stated complaint: BROWN VOMIT FROM SNF PER EMS Time Seen by Provider: 08/22/23 11:21 Source: patient, EMS and old records reviewed Mode of arrival: EMS Limitations: other (poor historian) History of Present Illness HPI Narrative: 68 yo male with PMH of HLD, HTN, DM, TBI, epilepsy, DVT on xarelto reportedly had constipation since yesterday then episode of brown vomit today. He has no complaints. EMS notes the SNF history was not good. MD elicited complaint: nausea and vomiting Onset (ago): day(s) (1) Description of vomiting: other (brown color) Associated nausea: Yes Associated abdominal pain: No Severity: mild Exacerbating factors: eating Relieving factors: none Associated symptoms: loss of appetite Related Data Previous Rx's ?Medication ?Instructions ?Recorded sodium phosphates 19 gram-7 118 ml [place] DAILY 3 days #133 mL 04/19/ gram/118 mL enema (Fleet Enema) Allergies Allergy/AdvReac Type Severity Reaction Status Date / Time No Known Drug Allergies Allergy Unknown none Verified 08/22/23 11:59 Review of Systems Review of Systems: ROS unable to be obtained due to altered mental status Gastrointestinal: Gastrointestinal: Reports nausea PMFSH Past Medical History Attestation statement: The following information was validated with the patient. Source: old records reviewed Medical History Psychotic disorder Hyperlipidemia DVT (deep venous thrombosis) Epilepsy Diabetes mellitus Hypertension TBI (traumatic brain injury) Social History Social History (Updated 08/22/23 @ 11:25 by Shereen Mueller DO) Unable to assess alcohol history related to: Unknown Patient Tobacco Use Status: Tobacco use Unknown Smoked in Last 30 Days: No Use of substances other than those prescribed or required for medical reasons: No Advance Directives: No Physical Exam Vital Signs: Vital Signs: Last Vital Signs Temp 97.5 F 08/22/23 11:57 Pulse 65 08/22/23 15:46 Resp 18 08/22/23 15:46 BP 129/79 08/22/23 15:46 Pulse Ox 99 08/22/23 15:46 O2 Del Method Room Air 08/22/23 15:46 BMI result Body Mass Index 24.0 Appearance: Alert. Oriented X1. No acute distress. Eyes: Pupils equal, round and reactive to light. ENT: Pharynx normal. Neck: Normal inspection. Neck supple. CVS: Normal heart rate and rhythm. Pulses normal. Respiratory: No respiratory distress. Breath sounds normal. Abdomen: Soft and mild distention but he denies pain to palpation Rectal: cannot feel stool ball - gave enema, no blood or black noted on digit Skin: Skin warm and dry. Normal skin color. Normal skin turgor. Extremities: No lower extremity edema. No calf ttp Neuro: Oriented X 1. No motor deficit. No sensory deficit. Medications Administered Discontinued Medications Generic Name Dose Route Start Last Admin Trade Name Freq PRN Reason Stop Dose Admin Sodium Chloride 1,000 mls @ 999 mls/hr 08/22/23 11:45 08/22/23 13:55 Ns IV 08/22/23 12:45 Infused .Q1H1M VERÓNICA Infusion Iohexol 100 ml 08/22/23 13:48 08/22/23 13:48 Iohexol 350 Mg/Ml 100 Ml Infus..Btl IV 08/22/23 13:49 85 ml ONCE ONE Administration Ondansetron HCl 4 mg 08/22/23 11:34 08/22/23 12:34 Ondansetron Hcl 4 Mg/2 Ml Vial IVPUSH 08/22/23 11:35 4 mg ONCE ONE Administration Pantoprazole Sodium 40 mg 08/22/23 11:34 08/22/23 12:36 Pantoprazole Sodium 40 Mg/10 Ml Vial IVPUSH 08/22/23 11:35 40 mg ONCE ONE Administration Medical Decision Making Medical Decision Making [facility] Narrative: 68 yo male with PMH of HLD, HTN, DM, TBI, epilepsy, DVT on xarelto tells me has no complaints - [facility] staff sent him for constipation for 1 day then vomited brown today he is a very poor historian will need labs, CT scan IVF, protonix and will monitor Differential Diagnosis Differential Diagnoses: The differential diagnosis associated with the presentation includes ulcer, gastritis, Admission/Observation Consideration of admission/observation: Escalation of care including admission/observation considered if repeat CBC normal will DC home H/H stable no vomiting or GIB symptoms here Lab Data [facility] Lab Attestation statement: I reviewed the patient's lab results. 08/22/23 12:13 08/22/23 13:10 Labs: Lab Results 04/18/24 04/18/24 Range/Units 12:13 13:10 WBC 2.9 L (4.8-10.8) X10*3/uL RBC 4.49 L (4.60-5.80) X10*6/uL Hgb 12.3 L (14.0-18.0) g/dl Hct 38.3 L (42.0-52.0) % MCV 85.3 (80.0-98.0) fL MCH 27.4 (27.0-33.0) pg MCHC 32.1 (31.0-36.0) g/dl RDW 16.3 H (11.0-16.0) % Plt Count 211 (160-400) X10*3/uL MPV 8.9 L (9.4-12.4) fL Immature Gran % (Auto) 0.3 (0.0-0.4) % Neut % (Auto) 44.8 L (45-73) % Lymph % (Auto) 34.0 (20-40) % [place] % (Auto) 11.5 H (2-11) % Eos % (Auto) 8.7 H (0-4) % Baso % (Auto) 0.7 (0-2) % Lymph # (Auto) 1.0 L (1.2-4.9) X10*3/uL [place] # (Auto) 0.3 (0.1-1.2) X10*3/uL Eos # (Auto) 0.3 (0.0-0.4) X10*3/uL Baso # (Auto) 0.0 (0.0-0.2) X10*3/uL Abs Immat Gran (auto) 0.01 (0.00-0.03) X10*3/uL Absolute Neuts (auto) 1.3 L (2.0-8.3) x10*3/uL Absolute Nucleated RBC 0.000 (0.0-0.012) X10*3/uL Nucleated RBC % (auto) 0.0 (0.0-0.2) /100WBC PT 15.5 H (11.1-13.3) SEC INR 1.3 H (0.9-1.1) Sodium 141 (135-145) mmol/L Potassium 4.6 (3.3-5.1) mmol/L Chloride 107 (96-108) mmol/L Carbon Dioxide 33 H (22-29) mmol/L Anion Gap 6 L (12-20) BUN 13 (9-16) mg/dL Creatinine 0.86 (0.5-1.4) mg/dL Estim Creat Clear Calc 79.5 Estimated GFR > 60 Random Glucose 85 (60-115) mg/dL Lactic Acid 1.6 (0.5-2.0) mmol/L Calcium 8.5 D (8.4-10.2) mg/dL Magnesium 2.0 (1.6-2.6) mg/dL Total Bilirubin 0.1 (0.0-1.0) mg/dL Direct Bilirubin < 0.2 (0.0-0.5) mg/dL AST 10 (5-37) U/L ALT 8 (0-40) U/L Alkaline Phosphatase 91 (39-117) U/L Troponin I High Sens < 2.7 (<3.5-35.0) ng/L Total Protein 6.3 L (6.5-8.0) g/dL Albumin 3.4 L (3.5-5.0) g/dL Lipase 15 (8-78) U/L Blood Type O Positive Antibody Screen NEGATIVE Independent Interpretation I performed an independent interpretation of an: EKG, Plain X-Ray and CT Scan (no acute findings) Interpretation: Rate: 56 Rhythm: sinus bradycardia [place]: left Normal P waves. Normal TEDDY. Normal QRS complex. ST T wave : no CHARU, inverted t wave V1 qTC: 378 prior studies: no acute ischemia The study has been interpreted contemporaneously by me. . Radiology Impression Discussion of test interpretation with radiology: I have reviewed the radiologist's reading. Independent Historian Clinical information obtained from an independent historian. History obtained from or confirmed by: EMS External Record Review External record reviewed: Outpatient record Prescription Management I considered prescription management with: Other Discharge Plan Discharge Clinical Impression: Vomiting, Acute constipation Patient Disposition: Home, Self-Care Instructions: Acute Nausea and Vomiting (ED), Constipation (ED) Additional Instructions: hemoglobin remained stable on repeat labs, CT scan no acute cause other than constipation would put him on lactulose for the next 5 days twice a day until he has a good bowel movement he did get enema in ED return for worsening symptoms or concerns. CT/CT abdomen pelvis w IV con IMPRESSION: 1. A cause for the patient's abdominal pain, vomiting and distention has not been found. 2. New 10 x 7 mm pleural-based nodular density right middle lobe. 3. Benign hepatic cysts. 4. Moderate stool in the colon with large stool ball in the rectum. 5. Mild BPH. Prescriptions: No Action Fleet Enema 19-7 gram/118 mL enema 118 ml [place] DAILY 3 Days Qty: 133 3RF Print Language: Sammarinese Creole
--- NOTE | 2023-08-22 11:36 | ECG_ITS ---
Test Reason : ABDOMINAL PAIN Blood Pressure : / mmHG Vent. Rate : 056 BPM Atrial Rate : 056 BPM P-R Int : 146 ms QRS Dur : 082 ms QT Int : 392 ms P-R-T Axes : 044 -38 041 degrees QTc Int : 378 ms Sinus bradycardia Left axis deviation Abnormal ECG When compared with ECG of 14-JUN-2023 11:52, No significant change was found Referred By: Shereen Mueller Electronically Signed By:CARI ROMO
[2023-08-22 11:57] VITALS: BP 114/69; BP 128/66; PULSE 58; RESP 15; TEMP 36.4; O2SAT 100; O2SAT 98; BMI 24.0
[2023-08-22 12:25] LABS: MANUAL DIFF FLAG NO
[2023-08-22 12:29] LABS: Basophils Percent Auto 0.7 % (0-2); Eosinophils Absolute Auto 0.3 X10*3/uL (0.0-0.4); Eosinophils Percent Auto 8.7 % (0-4); Hematocrit 38.3 % (42.0-52.0); Hemoglobin 12.3 g/dl (14.0-18.0); Imm Gran Abs Auto 0.01 X10*3/uL (0.00-0.03); Imm Gran Pct Auto 0.3 % (0.0-0.4); Mean Corpuscular HGB Conc 32.1 g/dl (31.0-36.0); Mean Corpuscular Hemoglobin 27.4 pg (27.0-33.0); Mean Corpuscular Volume 85.3 fL (80.0-98.0); Mean Platelet Volume 8.9 fL (9.4-12.4); Monocytes Absolute Auto 0.3 X10*3/uL (0.1-1.2); Monocytes Percent Auto 11.5 % (2-11); Neutrophils Absolute Auto 1.3 x10*3/uL (2.0-8.3); Neutrophils Percent Auto 44.8 % (45-73); Platelet Count 211 X10*3/uL (160-400); Red Blood Count 4.49 X10*6/uL (4.60-5.80); Red Cell Distribution Width 16.3 % (11.0-16.0); White Blood Count 2.9 X10*3/uL (4.8-10.8)
[2023-08-22] MEDS: ondansetron HCL 4 MG/2 ML VIAL IVPUSH (12:34)
[2023-08-22 12:35] LABS: INTERNATIONAL NORM RATIO 1.3 (0.9-1.1); Prothrombin Time 15.5 SEC (11.1-13.3)
[2023-08-22] MEDS: 0.9 % Sodium Chloride 1,000 ML 999 ML IV (12:36)
[2023-08-22] MEDS: Pantoprazole Sodium 40 MG/10 ML VIAL IVPUSH (12:36)
[2023-08-22 12:42] LABS: Lactic Acid 1.6 mmol/L (0.5-2.0)
[2023-08-22 13:33] LABS: Alanine Aminotransferase 8 U/L (0-40); Albumin Level 3.4 g/dL (3.5-5.0); Alkaline Phosphatase 91 U/L (39-117); Anion Gap 6 (12-20); Aspartate Amino Transferase 10 U/L (5-37); Bilirubin Direct < 0.2 mg/dL (0.0-0.5); Bilirubin Total 0.1 mg/dL (0.0-1.0); Blood Urea Nitrogen 13 mg/dL (9-16); Calcium 8.5 mg/dL (8.4-10.2); Carbon Dioxide 33 mmol/L (22-29); Chloride 107 mmol/L (96-108); Creatinine Clr Calc Pharmacy 79.5; Estimated Glomerular Filt Rate > 60; Glucose Random 85 mg/dL (60-115); Lipase 15 U/L (8-78); Potassium 4.6 mmol/L (3.3-5.1); Sodium 141 mmol/L (135-145); Total Protein 6.3 g/dL (6.5-8.0)
[2023-08-22 13:41] LABS: Troponin-I High Sensitivity < 2.7 ng/L (<3.5-35.0)
[2023-08-22] MEDS: iohexoL 350 MG/ML 100 ML INFUS..BTL IV (13:48)
[2023-08-22 15:46] VITALS: BP 129/79; PULSE 65; RESP 18; O2SAT 99
--- NOTE | 2023-08-22 15:48 | PC.NURSE ---
pt ambulatory to br and back. able to follow commands. denies any coughing /hemoptysis. nsr on monitor. oriednted to person/place only. unlabored resp
[2023-08-22 15:59] LABS: Hematocrit 38.2 % (42.0-52.0); Hemoglobin 12.2 g/dl (14.0-18.0); Mean Corpuscular HGB Conc 31.9 g/dl (31.0-36.0); Mean Corpuscular Hemoglobin 27.2 pg (27.0-33.0); Mean Corpuscular Volume 85.3 fL (80.0-98.0); Mean Platelet Volume 8.6 fL (9.4-12.4); Platelet Count 195 X10*3/uL (160-400); Red Blood Count 4.48 X10*6/uL (4.60-5.80); Red Cell Distribution Width 16.5 % (11.0-16.0); White Blood Count 3.5 X10*3/uL (4.8-10.8)
[2023-08-22] MEDS: Sodium Phosphate,Mono-Dibasic 133 ML ENEMA PR (16:24)
[2023-08-22 16:35] LABS: Influenza A PCR NEGATIVE (Negative); Influenza B PCR NEGATIVE (Negative); Resp Syncy Virus RNA Qual PCR NEGATIVE (Negative); SARS COV2 PCR INHOUSE NEGATIVE (Negative)
--- NOTE | 2023-08-22 17:05 | PC.NURSE ---
pt had a large firm BM in commode. Digital exam by Dr. Crawford afterwards. NAD>
[2023-08-22 17:54] VITALS: BP 133/74; PULSE 61; RESP 16; TEMP 36.6; O2SAT 97
--- NOTE | 2023-08-22 18:59 | PC.NURSE ---
resting quietly in loya bed. awaits ride back.
--- NOTE | 2023-08-22 19:02 | PC.NURSE ---
RN to RN with [facility].
[2023-08-22 21:08] VITALS: BP 101/65; PULSE 89; RESP 16; TEMP 36.3; O2SAT 95
[2023-08-22 21:14] VITALS: BP 101/65; PULSE 89; RESP 16; TEMP 36.3; O2SAT 95
== END 2023-08-22 21:15 | disposition home or self-care (01) ==
PROVIDERS: Emergency Medicine; Emergency Provider Emergency Medicine
DX: R11.10 Vomiting, unspecified (principal); K59.00 Constipation, unspecified; J98.4 Other disorders of lung; I10 Essential (primary) hypertension; E11.9 Type 2 diabetes mellitus without complications; G40.909 Epilepsy, unspecified, not intractable, without status epilepticus; Z87.820 Personal history of traumatic brain injury; Z86.718 Personal history of other venous thrombosis and embolism; Z79.01 Long term (current) use of anticoagulants; Z11.52 Encounter for screening for COVID-19
CPT/HCPCS: 0241U; 36415; 71045; 74177; 80048; 80076; 83605; 83690; 83735; 84484; 85025; 85027; 85610; 86850; 86900; 86901; 87040; 93005; 96361; 96374; 96375; 99284; C9113; J2405; Q9967

== ENCOUNTER → 2023-08-22 11:36 | Outpatient (BNV) | payer MEDICARE, MEDICAID, SELFPAY | PROVIDERS: Emergency Provider Emergency Medicine; Visit Provider Internal Medicine | DX: R94.31 Abnormal electrocardiogram [ECG] [EKG] (principal) | CPT/HCPCS: 93010 ==

== ENCOUNTER 2024-01-20 15:57 | Emergency (ER) | payer MEDICARE, MEDICAID, SELFPAY ==
--- NOTE | ~2024-01-20 | XR_ITS ---
EXAMINATION: XR KNEE, LEFT CLINICAL INFORMATION: Pain. COMPARISON: None available. TECHNIQUE: Four views of the left knee. FINDINGS: Probable small suprapatellar joint effusion. No fracture. No dislocation. Femoral tibial and patellofemoral joints are normal. No soft tissue calcification. XR/XR knee LT 3V IMPRESSION: Probable small suprapatellar joint effusion. There is no acute osseous abnormality. Electronically signed by: Eric Cole MD 01/20/2024 07:58 PM EDT
--- NOTE | ~2024-01-20 | US_ITS ---
EXAMINATION: US TRIPLEX LOWER EXTREMITY, LEFT CLINICAL INFORMATION: History of DVT COMPARISON: None available. TECHNIQUE: Color-flow triplex imaging with spectral analysis and compression Doppler were performed on the left lower extremity. FINDINGS: Respiratory variation, normal compression and augmented flow are noted in the left lower extremity. The visualized common femoral vein, superficial femoral vein, profunda femoral vein, popliteal vein and midcalf posterior tibial venous segments show no evidence of deep venous thrombosis. The peroneal veins are not visualized. There is no Camara's cyst. US/US venous duplex LE LT IMPRESSION: No evidence of deep venous thrombosis involving the visualized venous structures of the left lower extremity. Of note, the peroneal veins are not well visualized. If the patient's symptoms persist, followup ultrasound in 5 days 7 days might be of value to exclude proximal propagation from a non-visualized calf vein. Electronically signed by: Javier Carolina MD 01/20/2024 06:56 PM EDT
[2024-01-20 16:11] VITALS: BP 108/62; PULSE 51; O2SAT 97
--- NOTE | 2024-01-20 16:14 | ED_ITS ---
HPI - Extremity Problem General Chief complaint: Extremity Injury, Lower Stated complaint: KNEE PAIN PER EMS Time Seen by Provider: 01/20/24 16:11 Source: patient Mode of arrival: ambulatory Limitations: no limitations History of Present Illness ED Provider: pamela LOVE Narrative: Patient is 60 years old with history of TBI DVT right lower extremity on Xarelto epilepsy diabetes came from [facility] for pain in the left knee and popliteal area for last 2 days no trauma no fever no chills no skin discoloration patient ambulatory as such Related Data Previous Rx's ?Medication ?Instructions ?Recorded sodium phosphates 19 gram-7 118 ml IA DAILY 3 days #133 mL 04/19/ gram/118 mL enema (Fleet Enema) Allergies Allergy/AdvReac Type Severity Reaction Status Date / Time No Known Drug Allergies Allergy Unknown none Verified 01/20/24 16:17 Review of Systems 2 Review of Systems: Yes all other systems are reviewed and are negative PMFSH Past Medical History Medical History Psychotic disorder Hyperlipidemia DVT (deep venous thrombosis) Epilepsy Diabetes mellitus Hypertension TBI (traumatic brain injury) Social History Social History Unable to assess alcohol history related to: Unknown Patient Tobacco Use Status: Tobacco use Unknown Smoked in Last 30 Days: No Use of substances other than those prescribed or required for medical reasons: No Advance Directives: No Advance Directives Information Provided: No Do you have a plan to hurt others: No Plan Physical Exam 2 Vital Signs: Vital Signs: Last Vital Signs Temp 97.9 F 01/20/24 20:00 Pulse 66 01/20/24 20:00 Resp 16 01/20/24 20:00 BP 132/86 01/20/24 20:00 Pulse Ox 99 01/20/24 20:00 O2 Del Method Room Air 01/20/24 20:00 BMI result Body Mass Index 22.4 Appearance: Alert. And awake Eyes: No pallor or icterus ENT: Pharynx normal. Oral Mucosa moist Neck: Normal inspection. Neck supple. CVS: Normal heart rate and rhythm. Pulses normal. Respiratory: No respiratory distress. Equal air entry bilateral, no wheezing/rales/rhonchi Abdomen: Soft and nontender. Bowel sounds are present, no mass palpable, no CVA tenderness Skin: Skin warm and dry. Normal skin color. Normal skin turgor. Extremities: No lower extremity edema. No calf tenderness left knee diffuse tenderness joint line and tenderness at the popliteal area of slight swelling Neuro: Oriented X 2. Moving all 4 extremities Medical Decision Making Medical Decision Making [facility] Narrative: Patient's x-ray with arthritis venous Doppler negative clinically patient has medial meniscus strain/internal derangement of the knee joint Differential Diagnosis Differential Diagnoses: The differential diagnosis associated with the presentation includes Osteoarthritis/DVT/effusion Lab Data [facility] Lab Attestation statement: I reviewed the patient's lab results. 01/20/24 16:58 01/20/24 16:58 Labs: Lab Results 01/20/24 01/20/24 Range/Units 16:57 16:58 WBC 4.1 L (4.8-10.8) X10*3/uL RBC 4.30 L (4.60-5.80) X10*6/uL Hgb 11.7 L (14.0-18.0) g/dl Hct 36.6 L (42.0-52.0) % MCV 85.1 (80.0-98.0) fL MCH 27.2 (27.0-33.0) pg MCHC 32.0 (31.0-36.0) g/dl RDW 14.8 (11.0-16.0) % Plt Count 251 D (160-400) X10*3/uL MPV 9.2 L (9.4-12.4) fL Immature Gran % (Auto) 0.2 (0.0-0.4) % Neut % (Auto) 53.2 (45-73) % Lymph % (Auto) 31.2 (20-40) % Houghton % (Auto) 11.8 H (2-11) % Eos % (Auto) 3.4 (0-4) % Baso % (Auto) 0.2 (0-2) % Lymph # (Auto) 1.3 (1.2-4.9) X10*3/uL [place]oughton # (Auto) 0.5 (0.1-1.2) X10*3/uL Eos # (Auto) 0.1 (0.0-0.4) X10*3/uL Baso # (Auto) 0.0 (0.0-0.2) X10*3/uL Abs Immat Gran (auto) 0.01 (0.00-0.03) X10*3/uL Absolute Neuts (auto) 2.2 (2.0-8.3) x10*3/uL Absolute Nucleated RBC 0.000 (0.0-0.012) X10*3/uL Nucleated RBC % (auto) 0.0 (0.0-0.2) /100WBC ESR 9 (0-15) MM/HR Sodium 141 (135-145) mmol/L Potassium 3.9 (3.3-5.1) mmol/L Chloride 109 H (96-108) mmol/L Carbon Dioxide 24 (22-29) mmol/L Anion Gap 12 (12-20) BUN 11 (9-16) mg/dL Creatinine 1.01 (0.5-1.4) mg/dL Estim Creat Clear Calc 66.0 Estimated GFR > 60 Random Glucose 88 (60-115) mg/dL Calcium 9.1 D (8.4-10.2) mg/dL Total Bilirubin 0.6 (0.0-1.0) mg/dL AST 12 (5-37) U/L ALT 8 (0-40) U/L Alkaline Phosphatase 88 (39-117) U/L C-Reactive Protein 4.69 H (< or = 0.50) mg/dL Total Protein 6.6 (6.5-8.0) g/dL Albumin 3.5 (3.5-5.0) g/dL Independent Interpretation I performed an independent interpretation of an: Plain X-Ray and Ultrasound Radiology Impression Discussion of test interpretation with radiology: I have reviewed the radiologist's reading. Radiologist Impression: [address] [address] XRay Report Signed Patient: Silvio Amor MR#: [id number] : 1955 Acct:[id number] Age/Sex: 68 / M ADM Date: 01/20/24 Loc: .ED Attending Dr: Ordering Physician: Panda Cobb MD Date of Service: 01/20/24 Procedure(s): XR knee LT 3V Accession Number(s): [id number] cc: Physician,Unknown ; Panda Cobb MD~ EXAMINATION: XR KNEE, LEFT CLINICAL INFORMATION: Pain. COMPARISON: None available. TECHNIQUE: Four views of the left knee. FINDINGS: Probable small suprapatellar joint effusion. No fracture. No dislocation. Femoral tibial and patellofemoral joints are normal. No soft tissue calcification. XR/XR knee LT 3V IMPRESSION: Probable small suprapatellar joint effusion. There is no acute osseous abnormality. Electronically signed by: Eric Cole MD 01/20/2024 07:58 PM EDT RP [place] [address] Ultrasound Report Signed Patient: Silvio Amor MR#: [id number] : 1955 Acct:[id number] Age/Sex: 68 / M ADM Date: 01/20/24 Loc: .ED Attending Dr: Ordering Physician: Panda Cobb MD Date of Service: 01/20/24 Procedure(s): US venous duplex LE LT Accession Number(s): [id number] cc: Physician,Unknown ; Panda Cobb MD~ EXAMINATION: US TRIPLEX LOWER EXTREMITY, LEFT CLINICAL INFORMATION: History of DVT COMPARISON: None available. TECHNIQUE: Color-flow triplex imaging with spectral analysis and compression Doppler were performed on the left lower extremity. FINDINGS: Respiratory variation, normal compression and augmented flow are noted in the left lower extremity. The visualized common femoral vein, superficial femoral vein, profunda femoral vein, popliteal vein and midcalf posterior tibial venous segments show no evidence of deep venous thrombosis. The peroneal veins are not visualized. There is no Camara's cyst. US/US venous duplex LE LT IMPRESSION: No evidence of deep venous thrombosis involving the visualized venous structures of the left lower extremity. Of note, the peroneal veins are not well visualized. If the patient's symptoms persist, followup ultrasound in 5 days 7 days might be of value to exclude proximal propagation from a non-visualized calf vein. Electronically signed by: Javier Carolina MD 01/20/2024 06:56 PM EDT RP Discharge Plan Discharge Clinical Impression: Osteoarthritis of knee Patient Disposition: Xfer SNF Transfer Details: Venous Doppler negative for blood clot, x-ray shows arthritis Instructions: Osteoarthritis (ED) Additional Instructions: Eduard wrap for support Tylenol for pain Follow with PCP/orthopedic Prescriptions: No Action Fleet Enema 19-7 gram/118 mL enema 118 ml IA DAILY 3 Days Qty: 133 3RF Print Language: Cecil Jimenez
[2024-01-20 16:16] VITALS: BP 118/67; PULSE 62; RESP 16; TEMP 36.6; O2SAT 98; BMI 22.4
[2024-01-20 17:04] LABS: MANUAL DIFF FLAG NO
[2024-01-20 17:08] LABS: Basophils Percent Auto 0.2 % (0-2); Eosinophils Absolute Auto 0.1 X10*3/uL (0.0-0.4); Eosinophils Percent Auto 3.4 % (0-4); Hematocrit 36.6 % (42.0-52.0); Hemoglobin 11.7 g/dl (14.0-18.0); Imm Gran Abs Auto 0.01 X10*3/uL (0.00-0.03); Imm Gran Pct Auto 0.2 % (0.0-0.4); Lymphocytes Absolute Auto 1.3 X10*3/uL (1.2-4.9); Lymphocytes Percent Auto 31.2 % (20-40); Mean Corpuscular Hemoglobin 27.2 pg (27.0-33.0); Mean Corpuscular Volume 85.1 fL (80.0-98.0); Mean Platelet Volume 9.2 fL (9.4-12.4); Monocytes Absolute Auto 0.5 X10*3/uL (0.1-1.2); Monocytes Percent Auto 11.8 % (2-11); Neutrophils Absolute Auto 2.2 x10*3/uL (2.0-8.3); Neutrophils Percent Auto 53.2 % (45-73); Platelet Count 251 X10*3/uL (160-400); Red Cell Distribution Width 14.8 % (11.0-16.0); White Blood Count 4.1 X10*3/uL (4.8-10.8)
--- NOTE | 2024-01-20 17:11 | PC.NURSE ---
labs obtained/sent to lab by tech. pt waiting for xray to be completed at this time. plan of care ongoing. call gale placed within reach.
[2024-01-20 17:31] LABS: Alanine Aminotransferase 8 U/L (0-40); Albumin Level 3.5 g/dL (3.5-5.0); Alkaline Phosphatase 88 U/L (39-117); Anion Gap 12 (12-20); Aspartate Amino Transferase 12 U/L (5-37); Bilirubin Total 0.6 mg/dL (0.0-1.0); Blood Urea Nitrogen 11 mg/dL (9-16); C Reactive Protein 4.69 mg/dL (< or = 0.50); Calcium 9.1 mg/dL (8.4-10.2); Carbon Dioxide 24 mmol/L (22-29); Chloride 109 mmol/L (96-108); Estimated Glomerular Filt Rate > 60; Glucose Random 88 mg/dL (60-115); Potassium 3.9 mmol/L (3.3-5.1); Sodium 141 mmol/L (135-145); Total Protein 6.6 g/dL (6.5-8.0)
[2024-01-20 18:00] VITALS: BP 129/91; PULSE 62; RESP 16; TEMP 36.6; O2SAT 100
--- NOTE | 2024-01-20 18:21 | MHC.EDTECH ---
Patient changed over, blood drawn and send to the lab , vitals was done and PT rest quit in his bed and the call gale within pt reach
[2024-01-20 18:31] LABS: Erythrocyte Sedimentation Rate 9 MM/HR (0-15)
[2024-01-20 20:00] VITALS: BP 132/86; PULSE 66; RESP 16; TEMP 36.6; O2SAT 99
--- NOTE | 2024-01-20 20:26 | MHC.EDTECH ---
This tech took over care of patient at 1900,rounds and vitals completed,warm blanket and pillow given,call gale in reach and bed alarm on for safety
[2024-01-20 21:52] VITALS: BP 132/86; PULSE 66; RESP 16; TEMP 36.6; O2SAT 99
== END 2024-01-20 21:50 | disposition skilled nursing facility (03) ==
PROVIDERS: Emergency Provider Internal Medicine
DX: M25.562 Pain in left knee (principal); R60.0 Localized edema; Z79.01 Long term (current) use of anticoagulants; Z79.899 Other long term (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
CPT/HCPCS: 36415; 73562; 80053; 85025; 85652; 86140; 93971; 99284

== ENCOUNTER 2024-05-25 11:25 | Outpatient (AMB) | payer MEDICARE, MEDICAID, SELFPAY ==
[2024-05-25 11:26] VITALS: BP 92/62; PULSE 84; O2SAT 99; BMI 24.7
--- NOTE | 2024-05-25 11:26 | MHC.OFFVIS ---
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 Prior hx of colo/egd? N Concerns/Questions? Mild dysphagia. Previously evaluated by ED 2022. Floor Cashier Required: No Accompanied by: Other Relationship Allergies No Known Drug Allergies Allergy (Unknown, Verified 05/25/24 11:38) none HPI HPI Achalasia, dil of esophagus: Details: 68-year-old male with past medical history of TBI, DVT, hyperlipidemia, diabetes, epilepsy, hypertension, psychotic disorder is here today for initial consultation. GI consult was ordered 04/22/2023 to evaluate dysmotility and for possible dilation of the esophagus. Several attempts were made to come to the appointment, however patient has behavioral outbursts and never made it to the appointment. Patient is accompanied by staff members from [facility]. This provider called nursing informatics specialist of the facility to speak to her about patient's symptoms. Unable to get information or story from the patient. Patient is eating regular diet, small bites and regular liquids. No travel choking. No nausea or vomiting. No abdominal pain. Patient is moving his bowels without any issues. While reviewing patient's chart noted hepatic cyst seen on previous studies. Will re-evaluate with limited ultrasound, most likely hemangioma. Patient had normal liver enzymes back in January of 2024 [facility] Medical History Psychotic disorder Hyperlipidemia DVT (deep venous thrombosis) Epilepsy Diabetes mellitus Hypertension TBI (traumatic brain injury) Social History Unable to assess alcohol history related to: Unknown Patient Tobacco Use Status: Tobacco use Unknown Review of Systems Const Details: All system reviewed with staff and nursing informatics specialist as patient is unable to answer any of the questions due to his behavioral symptoms of occasional dysphagia Physical Exam Vital Signs: Last Vital Signs Pulse 84 05/25/24 11:26 BP 92/62 05/25/24 11:26 Pulse Ox 99 05/25/24 11:26 Oxygen Delivery Method Room Air 05/25/24 11:26 BMI result Body Mass Index 24.7 Const General: healthy appearing and no acute distress Resp Effort & Inspection: normal respiratory effort, able to speak in complete sentences, no tracheal deviation and symmetric chest movement Auscultation: clear to auscultation bilaterally Cardio Rate: regular rate GI Inspection: Yes normal to inspection and No distended Palpation (GI): Soft to palpation, not firm, nontender and No hepatosplenomegaly present Auscultation: normal bowel sounds General: Yes no CVA tenderness Back/Spine/Pelvis Back: no CVA tenderness Skin General skin exam: elasticity normal, turgor normal and dry skin Psych Appearance: grossly normal Attitude: cooperative Assessment & Plan Assessment & Plan (1) Dysphagia: Code(s): R13.10 - Dysphagia, unspecified Qualifiers: Dysphagia type: unspecified Qualified Code(s): R13.10 - Dysphagia, unspecified (2) Hepatic cyst: Code(s): K76.89 - Other specified diseases of liver Plan Patient will be sent for upper GI with barium swallow. Patient is very poor historian, when speaking to nursing informatics specialist patient is on regular diet with small by and regular liquids. Due to his behavioral diagnosis patient is compulsive fever and eats very fast. Trying to rule out esophageal dysmotility, achalasia versus Schatzki ring. Avoid dietary triggers and late night snacking. Staying upright for minimum 3 hours after meals discussed with patient ultrasound limited to evaluate hepatic cysts. Most likely hemangioma. Patient will follow-up in 6 months we will book him for upper endoscopy. Staff is agreeable to plan of care and verbalizes understanding of instructions. Plan discussed with nursing informatics specialist of the facility as well. Thank you for allowing me to participate in his care Orders: Orders FL upper GI w Ba Swallow Today K21.9 - Gastro-esophageal reflux disease without esophagitis US abdomen limited Today K76.89 - Other specified diseases of liver Coding Level of Care Code New Pt Level 4 (04139) Diagnoses Dysphagia, unspecified type R13.10 Dysphagia type: unspecified Hepatic cyst K76.89 Time Spent (min) 45 Comment 30 minutes spent with patient and additional 15 minutes spent reviewing his records
== END 2024-05-25 12:46 | disposition home or self-care (01) ==
PROVIDERS: PCP Hospitalist; Visit Provider Nurse Practitioner Family
DX: R13.10 Dysphagia, unspecified (principal); K76.89 Other specified diseases of liver
CPT/HCPCS: 99204

== ENCOUNTER → 2024-05-25 11:25 | Outpatient (BNVA) | payer MEDICARE, MEDICAID, SELFPAY | PROVIDERS: PCP Hospitalist; Visit Provider Nurse Practitioner Family | DX: K76.89 Other specified diseases of liver (principal); R13.10 Dysphagia, unspecified | CPT/HCPCS: 99202 ==

== ENCOUNTER 2024-06-23 07:55 | Outpatient (REF) | payer MEDICARE, MEDICAID, SELFPAY ==
--- NOTE | ~2024-06-23 | US_ITS ---
CLINICAL HISTORY: hepatic cyst Limited abdominal ultrasound Comparison: CT/REG/AK/SR - CT ABDOMEN PELVIS W IV CON - 08/22/23 13:39 EDT Findings: The liver is normal in size, measuring 14.0 cm in length. Increase in echogenicity which may indicate hepatic steatosis. There is an anechoic avascular lesion measuring 1.6 x 1.7 x 1.5 cm in the left lobe of the liver indicating a cyst. Hepatopetal flow is seen within the portal vein. The common bile duct is normal in diameter, measuring 0.3 cm. No cholelithiasis. There is a polyp measuring 0.2 x 0.2 x 0.3 cm. No wall thickening or pericholecystic fluid. Negative sonographic Aaron sign. The right kidney is normal in echogenicity and size, measuring 10.4 cm in length. Unremarkable limited evaluation of the pancreas. Impression: Negative for acute cholecystitis. 0.3 cm gallbladder polyp. Hepatic steatosis could be considered. 1.7 cm cyst in the left lobe of the liver. This document has been electronically signed by: Jaja Woodward MD on 06/23/2024 21:38:47
--- OUTSIDE RECORDS SUMMARY | 2024-06-23 07:57 | XMS_ITS | Encounter Summary ---
Author Organization [employer] Address [address] [place] [address] Care Team Providers Care Head Of Precision Targeting Name Role Phone Jeramie Schwartz MD Primary Care Provider Encounter Details Date Type Department Care Team (Late st Contact Info) Description 04/08/2024 Lab Requisition [facility] - Main Lab [address] [facility] [place] [address] Jeramie Schwartz MD [address] [place] [address] [address] [place], [place] 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 unspecified duration, sequela (CMS/HCC) Social History Tobacco Use Types Packs/Day Years Used Date Smoking Tobacco: Never Assessed Sex and Gender Information Value Date Recorded Sex Assigned at Not on file Legal Sex Male 8:09 PM EST Gender Identity Not on file Sexual Orientation Not on file documented as of this encounter Plan of Treatment Not on file documented as of this encounter Procedures Procedure Name Priority Date/Time Associated Diagnosis Comments MANUAL DIFFERENTIAL - SYSMEX WAM Routine 04/08/2024 6:31 AM EST 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 unspecified duration, sequela (CMS/HCC) CBC WITH AUTO DIFFERENTIAL Routine 04/08/2024 6:31 AM EST 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 unspecified duration, sequela (CMS/HCC) LAVENDER - EDTA Routine 04/08/2024 6:31 AM EST 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 unspecified duration, sequela (CMS/HCC) CBC AND DIFFERENTIAL Routine 04/08/2024 6:31 AM EST 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 unspecified duration, sequela (CMS/HCC) HEMOGLOBIN A1C Routine 04/08/2024 6:31 AM EST 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 unspecified duration, sequela (CMS/HCC) documented in this encounter Results * (ABNORMAL) Manual differential (04/08/2024 6:31 AM EST) Neutrophils % 34.0 % LAB HEMETOLOGY METHOD 04/08/2024 9:53 AM [facility] Bands % 1.0 % LAB HEMETOLOGY METHOD 04/08/2024 9:53 AM [facility] Lymphocytes % 34.0 % LAB HEMETOLOGY METHOD 04/08/2024 9:53 AM [facility] Monocytes % 15.0 % LAB HEMETOLOGY METHOD 04/08/2024 9:53 AM [facility] Eosinophils % 16.0 % LAB HEMETOLOGY METHOD 04/08/2024 9:53 AM [facility] Basophils % 1.0 % LAB HEMETOLOGY METHOD 04/08/2024 9:53 AM [facility] Neutrophils Absolute Manual 0.88(L) 1.50 - 7.00 K/mcL LAB HEMETOLOGY METHOD 04/08/2024 9:53 AM [facility] Bands Absolute Manual 0.03(H) 0.00 - 0.00 K/mcL LAB HEMETOLOGY METHOD 04/08/2024 9:53 AM [facility] Lymphocytes Absolute 0.88(L) 1.00 - 5.00 K/mcL LAB HEMETOLOGY METHOD 04/08/2024 9:53 AM [facility] Monocytes Absolute Manual 0.39 0.20 - 1.00 K/mcL LAB HEMETOLOGY METHOD 04/08/2024 9:53 AM [facility] Eosinophils Absolute Manual 0.42 0.00 - 0.50 K/mcL LAB HEMETOLOGY METHOD 04/08/2024 9:53 AM [facility] Basophils Absolute Manual 0.03 0.00 - 0.20 K/mcL LAB HEMETOLOGY METHOD 04/08/2024 9:53 AM [facility] Rbc Morphology Present( A) Consistent with indices, Normal for LAB HEMETOLOGY METHOD 04/08/2024 9:53 AM [facility] Platelet Morphology - WAM See Note(A) Normal LAB HEMETOLOGY METHOD 04/08/2024 9:53 AM [facility] Comment:PLT: Normal Ovalocytes Present 11 - 15%(A) (none) LAB HEMETOLOGY METHOD 04/08/2024 9:53 AM [facility] Blood Venous blood specimen / Unknown 04/08/2024 6:31 AM EST 04/08/2024 8:43 AM EST us Jeramie Schwartz MD LAB BLOOD ORDERABLES Final Resul t [facility] [address] [place] [address], [place] [phone] * Lavender tube (04/08/2024 6:31 AM EST) Extra Tube Hold for add-ons. 04/08/2024 10:01 AM [facility] Comment:Auto resulted. Blood Venous blood specimen / Unknown 04/08/2024 6:31 AM EST 04/08/2024 8:43 AM EST us Jeramie Schwartz MD LAB BLOOD ORDERABLES Final Resul t [facility] [address] [place] [address], [place] [phone] * (ABNORMAL) CBC auto differential (04/08/2024 6:31 AM EST) WBC 2.6(L) 4.8 - 10.8 K/mcL LAB HEMETOLOGY METHOD 04/08/2024 9:53 AM [facility] RBC 3.80(L) 4.50 - 5.50 M/mcL LAB HEMETOLOGY METHOD 04/08/2024 9:53 AM [facility] Hemoglobin 9.6(L) 13.5 - 17.5 g/dL LAB HEMETOLOGY METHOD 04/08/2024 9:53 AM [facility] Hematocrit 31.5(L) 42.0 - 54.0 % LAB HEMETOLOGY METHOD 04/08/2024 9:53 AM [facility] MCV 83.6 79.0 - 98.0 FL LAB HEMETOLOGY METHOD 04/08/2024 9:53 AM [facility] MCH 25.5(L) 27.0 - 32.0 pcg LAB HEMETOLOGY METHOD 04/08/2024 9:53 AM [facility] MCHC 30.5(L) 32.0 - 37.0 g/dL LAB HEMETOLOGY METHOD 04/08/2024 9:53 AM [facility] RDW 16.3(H) 11.0 - 15.0 % LAB HEMETOLOGY METHOD 04/08/2024 9:53 AM [facility] Platelets 338 130 - 400 K/mcL LAB HEMETOLOGY METHOD 04/08/2024 9:53 AM [facility] MPV 11.9(H) 7.0 - 11.0 FL LAB HEMETOLOGY METHOD 04/08/2024 9:53 AM [facility] NRBC 0.0 <1.0 % LAB HEMETOLOGY METHOD 04/08/2024 9:53 AM [facility] NRBC Absolute 0.00 <0.10 K/mcL LAB HEMETOLOGY METHOD 04/08/2024 9:53 AM [facility] Blood Venous blood specimen / Unknown 04/08/2024 6:31 AM EST 04/08/2024 8:43 AM EST us Jeramie Schwartz MD LAB BLOOD ORDERABLES Final Resul t [facility] [address] [place] [address], [place] [phone] * Hemoglobin A1c (04/08/2024 6:31 AM EST) Hemoglobin A1C 4.3 <6.5 % LAB CHEMISTRY METHOD 04/08/2024 12:45 PM EST [facility] Mean Bld Glu Estim. 77 mg/dL LAB CHEMISTRY METHOD 04/08/2024 12:45 PM EST [facility] Blood Venous blood specimen / Unknown 04/08/2024 6:31 AM EST 04/08/2024 8:43 AM EST us Jeramie Schwartz MD LAB BLOOD ORDERABLES Final Resul t Performing Organization Address City/[facility]/ZIP Co de Phone Number [facility] [address] [place] [address], [place] [phone] documented in this encounter Visit Diagnoses Diagnosis 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 unspecified duration, sequela (CMS/HCC) documented in this encounter Care Teams Head Of Precision Targeting Relationship Specialty Start Date End Date Jeramie Schwartz MD [address] [place] [address] Dr [address] [place] [address] PCP - General Internal Medicine 06/02/24 documented as of this encounter
--- OUTSIDE RECORDS SUMMARY | 2024-06-23 07:57 | XMS_ITS | Encounter Summary ---
Author Organization [employer] Address [address] [place] [address] Care Team Providers Care Operational Intelligence Officer Name Role Phone Jeramie Schwartz MD Primary Care Provider [phone] Encounter Details Date Type Department Care Team (Late st Contact Info) Description 03/26/2024 Lab Requisition [facility] Lab [address] [place] [address] Jeramie Schwartz MD [address] [place] [address] [address] [place], [place] Diffuse traumatic brain injury with loss [...] Procedure Name Priority Date/Time Associated Diagnosis Comments CBC WITH AUTO DIFFERENTIAL Routine 03/26/2024 6:55 AM EST 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 unspecified duration, sequela (CMS/HCC) CBC AND DIFFERENTIAL Routine 03/26/2024 6:55 AM EST 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 unspecified duration, sequela (CMS/HCC) documented in this encounter Results * (ABNORMAL) CBC auto differential (03/26/2024 6:55 AM EST) WBC 3.0(L) 4.8 - 10.8 K/[facility] LAB HEMETOLOGY METHOD 03/26/2024 7:46 AM EST [facility] LAB RBC 3.80(L) 4.50 - 5.50 M/[facility] LAB HEMETOLOGY METHOD 03/26/2024 7:46 AM [facility] LAB Hemoglobin 9.8(L) 13.5 - 17.5 g/dL LAB HEMETOLOGY METHOD 03/26/2024 7:46 AM [facility] LAB Hematocrit 31.5(L) 42.0 - 54.0 % LAB HEMETOLOGY METHOD 03/26/2024 7:46 AM [facility] LAB MCV 83.8 79.0 - 98.0 FL LAB HEMETOLOGY METHOD 03/26/2024 7:46 AM [facility] LAB MCH 26.1(L) 27.0 - 32.0 pcg LAB HEMETOLOGY METHOD 03/26/2024 7:46 AM [facility] LAB MCHC 31.1(L) 32.0 - 37.0 g/dL LAB HEMETOLOGY METHOD 03/26/2024 7:46 AM [facility] LAB RDW 15.9(H) 11.0 - 15.0 % LAB HEMETOLOGY METHOD 03/26/2024 7:46 AM [facility] LAB Platelets 263 130 - 400 K/mcL LAB HEMETOLOGY METHOD 03/26/2024 7:46 AM [facility] LAB MPV 9.7 7.0 - 11.0 FL LAB HEMETOLOGY METHOD 03/26/2024 7:46 AM [facility] LAB NRBC 0.0 <1.0 % LAB HEMETOLOGY METHOD 03/26/2024 7:46 AM [facility] LAB NRBC Absolute 0.00 <0.10 K/mcL LAB HEMETOLOGY METHOD 03/26/2024 7:46 AM [facility] LAB Neutrophils Relative 47.8 % LAB HEMETOLOGY METHOD 03/26/2024 7:46 AM [facility] LAB Lymphocytes Relative 26.7 % LAB HEMETOLOGY METHOD 03/26/2024 7:46 AM EST [facility] LAB Monocytes Relative 14.9 % LAB HEMETOLOGY METHOD 03/26/2024 7:46 AM [facility] LAB Eosinophils Relative 9.6 % LAB HEMETOLOGY METHOD 03/26/2024 7:46 AM [facility] LAB Basophils Relative 0.7 % LAB HEMETOLOGY METHOD 03/26/2024 7:46 AM [facility] LAB Immature Granulocytes Relative 0.3 % LAB HEMETOLOGY METHOD 03/26/2024 7:46 AM [facility] LAB Neutrophils Absolute 1.45(L) 1.50 - 7.00 K/mcL LAB HEMETOLOGY METHOD 03/26/2024 7:46 AM [facility] LAB Lymphocytes Absolute 0.81(L) 1.00 - 5.00 K/mcL LAB HEMETOLOGY METHOD 03/26/2024 7:46 AM [facility] LAB Monocytes Absolute 0.45 0.20 - 1.00 K/mcL LAB HEMETOLOGY METHOD 03/26/2024 7:46 AM [facility] LAB Eosinophils Absolute 0.29 0.00 - 0.50 K/mcL LAB HEMETOLOGY METHOD 03/26/2024 7:46 AM [facility] LAB Basophils Absolute 0.02 0.00 - 0.20 K/mcL LAB HEMETOLOGY METHOD 03/26/2024 7:46 AM [facility] LAB Immature Granulocytes Absolute 0.01 0.00 - 0.03 K/mcL LAB HEMETOLOGY METHOD 03/26/2024 7:46 AM [facility] LAB Blood Venous blood specimen / Unknown 03/26/2024 6:55 AM EST 03/26/2024 7:35 AM EST us Jeramie Schwartz MD LAB BLOOD ORDERABLES Final Resul t [facility] LAB [address] [place] [address], documented in this encounter Visit Diagnoses Diagnosis 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 unspecified duration, sequela (CMS/HCC) documented in this encounter Care Teams Operational Intelligence Officer Relationship Specialty Start Date End Date Jeramie Schwartz MD [address] [place] [address] Dr [address] [place], [place] PCP - General Internal Medicine 06/02/24 documented as of this encounter
--- OUTSIDE RECORDS SUMMARY | 2024-06-23 07:57 | XMS_ITS | Encounter Summary ---
Author Organization [employer] Address [address] [place] [address] Care Team Providers Care Pipe F[address] Service Name Role Phone Jeramie Schwartz MD Primary Care Provider [phone] Encounter Details Date Type Department Care Team (Late st Contact Info) Description 03/11/2024 Lab Requisition [facility] Lab [address] [place] [address] Jeramie Schwartz MD [address] [place] [address] [address] [place], [place] Diffuse traumatic brain injury with loss [...] Diagnosis Comments CBC WITH AUTO DIFFERENTIAL Routine 03/11/2024 4:55 AM EST 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 unspecified duration, sequela (CMS/HCC) CBC AND DIFFERENTIAL Routine 03/11/2024 4:55 AM EST 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 unspecified duration, sequela (CMS/HCC) documented in this encounter Results * (ABNORMAL) CBC auto differential (03/11/2024 4:55 AM EST) WBC 3.2(L) 4.8 - 10.8 K/[facility] LAB HEMETOLOGY METHOD 03/11/2024 6:59 AM EST [facility] LAB RBC 4.10(L) 4.50 - 5.50 M/[facility] LAB HEMETOLOGY METHOD 03/11/2024 6:59 AM [facility] LAB Hemoglobin 10.5(L) 13.5 - 17.5 g/dL LAB HEMETOLOGY METHOD 03/11/2024 6:59 AM [facility] LAB Hematocrit 34.8(L) 42.0 - 54.0 % LAB HEMETOLOGY METHOD 03/11/2024 6:59 AM [facility] LAB MCV 85.7 79.0 - 98.0 FL LAB HEMETOLOGY METHOD 03/11/2024 6:59 AM [facility] LAB MCH 25.9(L) 27.0 - 32.0 pcg LAB HEMETOLOGY METHOD 03/11/2024 6:59 AM [facility] LAB MCHC 30.2(L) 32.0 - 37.0 g/dL LAB HEMETOLOGY METHOD 03/11/2024 6:59 AM [facility] LAB RDW 16.6(H) 11.0 - 15.0 % LAB HEMETOLOGY METHOD 03/11/2024 6:59 AM [facility] LAB Platelets 287 130 - 400 K/mcL LAB HEMETOLOGY METHOD 03/11/2024 6:59 AM [facility] LAB MPV 11.1(H) 7.0 - 11.0 FL LAB HEMETOLOGY METHOD 03/11/2024 6:59 AM [facility] LAB NRBC 0.0 <1.0 % LAB HEMETOLOGY METHOD 03/11/2024 6:59 AM [facility] LAB NRBC Absolute 0.00 <0.10 K/mcL LAB HEMETOLOGY METHOD 03/11/2024 6:59 AM [facility] LAB Neutrophils Relative 38.2 % LAB HEMETOLOGY METHOD 03/11/2024 6:59 AM [facility] LAB Lymphocytes Relative 32.8 % LAB HEMETOLOGY METHOD 03/11/2024 6:59 AM [facility] LAB Monocytes Relative 17.8 % LAB HEMETOLOGY METHOD 03/11/2024 6:59 AM [facility] LAB Eosinophils Relative 10.3 % LAB HEMETOLOGY METHOD 03/11/2024 6:59 AM [facility] LAB Basophils Relative 0.6 % LAB HEMETOLOGY METHOD 03/11/2024 6:59 AM [facility] LAB Immature Granulocytes Relative 0.3 % LAB HEMETOLOGY METHOD 03/11/2024 6:59 AM [facility] LAB Neutrophils Absolute 1.22(L) 1.50 - 7.00 K/mcL LAB HEMETOLOGY METHOD 03/11/2024 6:59 AM [facility] LAB Lymphocytes Absolute 1.05 1.00 - 5.00 K/mcL LAB HEMETOLOGY METHOD 03/11/2024 6:59 AM [facility] LAB Monocytes Absolute 0.57 0.20 - 1.00 K/mcL LAB HEMETOLOGY METHOD 03/11/2024 6:59 AM [facility] LAB Eosinophils Absolute 0.33 0.00 - 0.50 K/mcL LAB HEMETOLOGY METHOD 03/11/2024 6:59 AM [facility] LAB Basophils Absolute 0.02 0.00 - 0.20 K/mcL LAB HEMETOLOGY METHOD 03/11/2024 6:59 AM [facility] LAB Immature Granulocytes Absolute 0.01 0.00 - 0.03 K/mcL LAB HEMETOLOGY METHOD 03/11/2024 6:59 AM [facility] LAB Blood Venous blood specimen / Unknown 03/11/2024 4:55 AM EST 03/11/2024 6:08 AM EST us Jeramie Schwartz MD LAB BLOOD ORDERABLES Final Resul t [facility] LAB [address] [place] [address], documented in this encounter Visit Diagnoses Diagnosis 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 unspecified duration, sequela (CMS/HCC) documented in this encounter Care Teams Pipe [address] Service Relationship Specialty Start Date End Date Jeramie Schwartz MD [address] [place] [address] Dr [address] [place], [place] PCP - General Internal Medicine 06/02/24 documented as of this encounter
--- OUTSIDE RECORDS SUMMARY | 2024-06-23 07:57 | XMS_ITS | Encounter Summary ---
Author Organization [employer] Address [address] [place] [address] Care Team Providers Care Seam Stay Stitcher Name Role Phone Jeramie Schwartz MD Primary Care Provider [phone] Encounter Details Date Type Department Care Team (Late st Contact Info) Description 05/06/2024 Lab Requisition [facility] Lab [address] [place] [address] Jeramie Schwartz MD [address] [place] [address] [address] [place], [place] Diffuse traumatic brain injury with loss [...] Diagnosis Comments CBC WITH AUTO DIFFERENTIAL Routine 05/06/2024 9:05 AM EST 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 unspecified duration, sequela (CMS/HCC) CBC AND DIFFERENTIAL Routine 05/06/2024 9:05 AM EST 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 unspecified duration, sequela (CMS/HCC) documented in this encounter Results * (ABNORMAL) CBC auto differential (05/06/2024 9:05 AM EST) WBC 3.2(L) 4.8 - 10.8 K/[facility] LAB HEMETOLOGY METHOD 05/06/2024 10:51 AM EST [facility] LAB RBC 4.40(L) 4.50 - 5.50 M/[facility] LAB HEMETOLOGY METHOD 05/06/2024 10:51 AM [facility] LAB Hemoglobin 11.0(L) 13.5 - 17.5 g/dL LAB HEMETOLOGY METHOD 05/06/2024 10:51 AM [facility] LAB Hematocrit 35.7(L) 42.0 - 54.0 % LAB HEMETOLOGY METHOD 05/06/2024 10:51 AM [facility] LAB MCV 81.7 79.0 - 98.0 FL LAB HEMETOLOGY METHOD 05/06/2024 10:51 AM [facility] LAB MCH 25.2(L) 27.0 - 32.0 pcg LAB HEMETOLOGY METHOD 05/06/2024 10:51 AM [facility] LAB MCHC 30.8(L) 32.0 - 37.0 g/dL LAB HEMETOLOGY METHOD 05/06/2024 10:51 AM [facility] LAB RDW 17.8(H) 11.0 - 15.0 % LAB HEMETOLOGY METHOD 05/06/2024 10:51 AM [facility] LAB Platelets 333 130 - 400 K/mcL LAB HEMETOLOGY METHOD 05/06/2024 10:51 AM [facility] LAB MPV 10.1 7.0 - 11.0 FL LAB HEMETOLOGY METHOD 05/06/2024 10:51 AM [facility] LAB NRBC 0.0 <1.0 % LAB HEMETOLOGY METHOD 05/06/2024 10:51 AM [facility] LAB NRBC Absolute 0.00 <0.10 K/mcL LAB HEMETOLOGY METHOD 05/06/2024 10:51 AM [facility] LAB Neutrophils Relative 40.9 % LAB HEMETOLOGY METHOD 05/06/2024 10:51 AM [facility] LAB Lymphocytes Relative 35.1 % LAB HEMETOLOGY METHOD 05/06/2024 10:51 AM EST [facility] LAB Monocytes Relative 13.9 % LAB HEMETOLOGY METHOD 05/06/2024 10:51 AM [facility] LAB Eosinophils Relative 9.2 % LAB HEMETOLOGY METHOD 05/06/2024 10:51 AM [facility] LAB Basophils Relative 0.6 % LAB HEMETOLOGY METHOD 05/06/2024 10:51 AM [facility] LAB Immature Granulocytes Relative 0.3 % LAB HEMETOLOGY METHOD 05/06/2024 10:51 AM [facility] LAB Neutrophils Absolute 1.29(L) 1.50 - 7.00 K/mcL LAB HEMETOLOGY METHOD 05/06/2024 10:51 AM [facility] LAB Lymphocytes Absolute 1.11 1.00 - 5.00 K/mcL LAB HEMETOLOGY METHOD 05/06/2024 10:51 AM [facility] LAB Monocytes Absolute 0.44 0.20 - 1.00 K/mcL LAB HEMETOLOGY METHOD 05/06/2024 10:51 AM [facility] LAB Eosinophils Absolute 0.29 0.00 - 0.50 K/mcL LAB HEMETOLOGY METHOD 05/06/2024 10:51 AM [facility] LAB Basophils Absolute 0.02 0.00 - 0.20 K/mcL LAB HEMETOLOGY METHOD 05/06/2024 10:51 AM [facility] LAB Immature Granulocytes Absolute 0.01 0.00 - 0.03 K/mcL LAB HEMETOLOGY METHOD 05/06/2024 10:51 AM [facility] LAB Blood Venous blood specimen / Unknown 05/06/2024 9:05 AM EST 05/06/2024 10:16 AM EST us Jeramie Schwartz MD LAB BLOOD ORDERABLES Final Resul t [facility] LAB [address] [place] [address], [place] [phone] documented in this encounter Visit Diagnoses Diagnosis 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 unspecified duration, sequela (CMS/HCC) documented in this encounter Care Teams Seam Stay Stitcher Relationship Specialty Start Date End Date Jeramie Schwartz MD [address] [place] [address] Dr [address] [place], [place] PCP - General Internal Medicine 06/02/24 documented as of this encounter
--- OUTSIDE RECORDS SUMMARY | 2024-06-23 07:57 | XMS_ITS | Clinical Summary ---
Author Organization [address] [facility] Address [address] [place] [address] Phone Care Team Providers Care Destination Specialist Name Role Phone Jeramie Schwartz MD Primary Care Provider [phone] Encounters Date Type Department Care Team Description 05/06/2024 Lab Requisition [facility] Lab [address] [place] [id number] Jeramie Schwartz MD 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 unspecified duration, sequela (CMS/HCC) 04/08/2024 Lab Requisition [facility] Lab [address] [place] [phone] Jeramie Schwartz MD 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 unspecified duration, sequela (CMS/HCC) 03/26/2024 Lab Requisition [facility] Lab [address] [place] [phone] Jeramie Schwartz MD 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 unspecified duration, sequela (CMS/HCC) from Last 3 Months Social History Tobacco Use Types Packs/Day Years Used Date Smoking Tobacco: Never Assessed Sex and Gender Information Value Date Recorded Sex Assigned at Not on file Legal Sex Male 8:09 PM EST Gender Identity Not on file Sexual Orientation Not on file Plan of Treatment Health Maintenance Due Date Last Done Comments DTaP,Tdap,and Td Vaccines (1 - Tdap) 08/09/1974 Pneumococcal Vaccine: 50+ Ye ars (1 of 1 - PCV) 08/09/2005 Zoster Vaccines (1 of 2) 08/09/2005 Abdominal Aortic Aneurysm (A AA) Screen 05/30/2023 Cholesterol Screening (Lipid Panel) 05/30/2023 Colorectal Cancer Screening: Colonoscopy 05/30/2023 Depression Screening 05/30/2023 Falls Risk Assessment 05/30/2023 Hepatitis C Screening 05/30/2023 Social Influencers of Health Screening 05/30/2023 COVID-19 Vaccine (1 - 2023-2 5 season) 2024 Influenza Vaccine (#1) 2024 RSV Immunization Patients 60 + Years Old (1 - 1-dose 75+ series) 08/09/2030 HIB Vaccines Aged Out No longer eligi ble based on patient's age to complete this topic HPV Vaccines Aged Out No longer eligi ble based on patient's age to complete this topic Hepatitis A Vaccines Aged Out No long er eligible based on patient's age to complete this topic Hepatitis B Vaccines Aged Out No long er eligible based on patient's age to complete this topic IPV Vaccines Aged Out No longer eligi ble based on patient's age to complete this topic MMR Vaccines Aged Out No longer eligi ble based on patient's age to complete this topic Meningococcal ACWY Vaccine Aged Out N o longer eligible based on patient's age to complete this topic Meningococcal B Vacine Aged Out No lo nger eligible based on patient's age to complete this topic RSV Immunization Patients Un manisha 20 months Aged Out No longer eligible b ased on patient's age to complete this topic Varicella Vaccines Aged Out No longer eligible based on patient's age to complete this topic Procedures Procedure Name Priority Date/Time Associated Diagnosis Comments CBC WITH AUTO DIFFERENTIAL Routine 05/06/2024 9:05 AM EST 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 unspecified duration, sequela (CMS/HCC) CBC AND DIFFERENTIAL Routine 05/06/2024 9:05 AM EST 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 unspecified duration, sequela (CMS/HCC) MANUAL DIFFERENTIAL - SYSMEX WAM Routine 04/08/2024 [...] sequela (CMS/HCC) CBC WITH AUTO DIFFERENTIAL Routine 03/26/2024 6:55 AM EST 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 unspecified duration, sequela (CMS/HCC) CBC AND DIFFERENTIAL Routine 03/26/2024 6:55 AM EST 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 unspecified duration, sequela (CMS/HCC) from Last 3 Months Results * (ABNORMAL) CBC auto differential (05/06/2024 9:05 AM EST) Only the most recent of3 resultswithin the time period is included. WBC 3.2(L) 4.8 - 10.8 K/mcL LAB HEMETOLOGY METHOD 05/06/2024 10:51 AM [facility] LAB RBC 4.40(L) 4.50 - 5.50 M/mcL LAB HEMETOLOGY METHOD 05/06/2024 10:51 AM [facility] LAB Hemoglobin 11.0(L) 13.5 - 17.5 g/dL LAB HEMETOLOGY METHOD 05/06/2024 10:51 AM [facility] LAB Hematocrit 35.7(L) 42.0 - 54.0 % LAB HEMETOLOGY METHOD 05/06/2024 10:51 AM [facility] LAB MCV 81.7 79.0 - 98.0 FL LAB HEMETOLOGY METHOD 05/06/2024 10:51 AM [facility] LAB MCH 25.2(L) 27.0 - 32.0 pcg LAB HEMETOLOGY METHOD 05/06/2024 10:51 AM [facility] LAB MCHC 30.8(L) 32.0 - 37.0 g/dL LAB HEMETOLOGY METHOD 05/06/2024 10:51 AM [facility] LAB RDW 17.8(H) 11.0 - 15.0 % LAB HEMETOLOGY METHOD 05/06/2024 10:51 AM [facility] LAB Platelets 333 130 - 400 K/mcL LAB HEMETOLOGY METHOD 05/06/2024 10:51 AM [facility] LAB MPV 10.1 7.0 - 11.0 FL LAB HEMETOLOGY METHOD 05/06/2024 10:51 AM [facility] LAB NRBC 0.0 <1.0 % LAB HEMETOLOGY METHOD 05/06/2024 10:51 AM [facility] LAB NRBC Absolute 0.00 <0.10 K/mcL LAB HEMETOLOGY METHOD 05/06/2024 10:51 AM [facility] LAB Neutrophils Relative 40.9 % LAB HEMETOLOGY METHOD 05/06/2024 10:51 AM [facility] LAB Lymphocytes Relative 35.1 % LAB HEMETOLOGY METHOD 05/06/2024 10:51 AM [facility] LAB Monocytes Relative 13.9 % LAB HEMETOLOGY METHOD 05/06/2024 10:51 AM [facility] LAB Eosinophils Relative 9.2 % LAB HEMETOLOGY METHOD 05/06/2024 10:51 AM [facility] LAB Basophils Relative 0.6 % LAB HEMETOLOGY METHOD 05/06/2024 10:51 AM [facility] LAB Immature Granulocytes Relative 0.3 % LAB HEMETOLOGY METHOD 05/06/2024 10:51 AM [facility] LAB Neutrophils Absolute 1.29(L) 1.50 - 7.00 K/mcL LAB HEMETOLOGY METHOD 05/06/2024 10:51 AM EST [facility] LAB Lymphocytes Absolute 1.11 1.00 - 5.00 K/mcL LAB HEMETOLOGY METHOD 05/06/2024 10:51 AM [facility] LAB Monocytes Absolute 0.44 0.20 - 1.00 K/mcL LAB HEMETOLOGY METHOD 05/06/2024 10:51 AM EST [facility] LAB Eosinophils Absolute 0.29 0.00 - 0.50 K/[facility] LAB HEMETOLOGY METHOD 05/06/2024 10:51 AM [facility] LAB Basophils Absolute 0.02 0.00 - 0.20 K/mcL LAB HEMETOLOGY METHOD 05/06/2024 10:51 AM [facility] LAB Immature Granulocytes Absolute 0.01 0.00 - 0.03 K/[facility] LAB HEMETOLOGY METHOD 05/06/2024 10:51 AM [facility] LAB Blood Venous blood specimen / Unknown 05/06/2024 9:05 AM EST 05/06/2024 10:16 AM EST Jeramie Schwartz MD LAB BLOOD ORDERABLES Final Resul t [facility] [address] [place] [address], * (ABNORMAL) Manual differential (04/08/2024 6:31 AM EST) Neutrophils % 34.0 % LAB HEMETOLOGY METHOD 04/08/2024 9:53 AM EST [facility] Bands % 1.0 % LAB HEMETOLOGY METHOD 04/08/2024 9:53 AM [facility] LAB Lymphocytes % 34.0 % LAB HEMETOLOGY METHOD 04/08/2024 9:53 AM EST [facility] LAB Monocytes % 15.0 % LAB HEMETOLOGY METHOD 04/08/2024 9:53 AM [facility] LAB Eosinophils % 16.0 % LAB HEMETOLOGY METHOD 04/08/2024 9:53 AM [facility] LAB Basophils % 1.0 % LAB HEMETOLOGY METHOD 04/08/2024 9:53 AM [facility] LAB Neutrophils Absolute Manual 0.88(L) 1.50 - 7.00 K/mcL LAB HEMETOLOGY METHOD 04/08/2024 9:53 AM [facility] LAB Bands Absolute Manual 0.03(H) 0.00 - 0.00 K/mcL LAB HEMETOLOGY METHOD 04/08/2024 9:53 AM [facility] LAB Lymphocytes Absolute 0.88(L) 1.00 - 5.00 K/mcL LAB HEMETOLOGY METHOD 04/08/2024 9:53 AM [facility] LAB Monocytes Absolute Manual 0.39 0.20 - 1.00 K/mcL LAB HEMETOLOGY METHOD 04/08/2024 9:53 AM [facility] LAB Eosinophils Absolute Manual 0.42 0.00 - 0.50 K/mcL LAB HEMETOLOGY METHOD 04/08/2024 9:53 AM [facility] LAB Basophils Absolute Manual 0.03 0.00 - 0.20 K/mcL LAB HEMETOLOGY METHOD 04/08/2024 9:53 AM [facility] LAB Rbc Morphology Present( A) Consistent with indices, Normal for [place] LAB HEMETOLOGY METHOD 04/08/2024 9:53 AM [facility] LAB Platelet Morphology - WAM See Note(A) Normal LAB HEMETOLOGY METHOD 04/08/2024 9:53 AM [facility] LAB Comment:PLT: Normal Ovalocytes Present 11 - 15%(A) (none) LAB HEMETOLOGY METHOD 04/08/2024 9:53 AM [facility] LAB Blood Venous blood specimen / Unknown 04/08/2024 6:31 AM EST 04/08/2024 8:43 AM EST us Jeramie Schwartz MD LAB BLOOD ORDERABLES Final Resul t Performing Organization Address [facility] Co de Phone Number [facility] [address] [place] [address], [place] [phone] * Lavender tube (04/08/2024 6:31 AM EST) Pathologist [facility] Extra Tube Hold for add-ons. 04/08/2024 10:01 AM EST [facility] Comment:Auto resulted. Blood Venous blood specimen / Unknown 04/08/2024 6:31 AM EST 04/08/2024 8:43 AM EST us Jeramie Schwartz MD LAB BLOOD ORDERABLES Final Resul t Performing Organization Address [facility] de Phone Number [facility] [address] [place] [address], [place] [phone] * Hemoglobin A1c (04/08/2024 6:31 AM EST) Pathologist [facility] Hemoglobin A1C 4.3 <6.5 % LAB CHEMISTRY METHOD 04/08/2024 12:45 PM EST [facility] Mean Bld Glu Estim. 77 mg/dL LAB CHEMISTRY METHOD 04/08/2024 12:45 PM EST [facility] Blood Venous blood specimen / Unknown 04/08/2024 6:31 AM EST 04/08/2024 8:43 AM EST us Jeramie Schwartz MD LAB BLOOD ORDERABLES Final Resul t Performing Organization Address City/[facility] Co de Phone Number [facility] [address] [place] [address], [place] [phone] from Last 3 Months Care Teams Destination Specialist Relationship Specialty Start Date End Date Jeramie Schwartz MD [address] [place] [address] Dr [address] M[place] Chaudhry PCP - General Internal Medicine 06/02/24
== END 2024-06-23 07:56 | disposition home or self-care (01) ==
LOC: HO.US 07:55
PROVIDERS: PCP Hospitalist; Visit Provider Nurse Practitioner Family
DX: K76.89 Other specified diseases of liver (principal)
CPT/HCPCS: 76705

== ENCOUNTER → 2024-06-23 08:01 | Outpatient (BNV) | payer MEDICARE, MEDICAID, SELFPAY | PROVIDERS: PCP Hospitalist; Visit Provider Radiology Diagnostic Radiology | DX: K76.89 Other specified diseases of liver (principal) | CPT/HCPCS: 76705 ==

== ENCOUNTER 2024-07-02 23:26 | Emergency (ER) | payer MEDICARE, MEDICAID, SELFPAY ==
--- NOTE | ~2024-07-02 | XR_ITS ---
CLINICAL HISTORY: cough 1 view chest Comparison: CR/SR - XR CHEST 1V - 08/22/23 15:03 EDT Findings: No consolidation or effusion. No acute fracture. Impression: 1. Cardiomegaly without failure. This document has been electronically signed by: Madhu Diane MD on 07/03/2024 00:34:38
[2024-07-02 23:31] VITALS: BP 110/73; BP 117/62; PULSE 67; PULSE 73; RESP 20; TEMP 36.3; O2SAT 94; O2SAT 97; BMI 23.3
[2024-07-02 23:34] VITALS: BP 117/62; PULSE 65; RESP 14; TEMP 36.5; O2SAT 94
[2024-07-02 23:48] LABS: MANUAL DIFF FLAG NO
[2024-07-02 23:49] LABS: Basophils Percent Auto 0.6 % (0-2); Eosinophils Absolute Auto 0.2 X10*3/uL (0.0-0.4); Eosinophils Percent Auto 5.6 % (0-4); Hemoglobin 10.1 g/dl (14.0-18.0); Imm Gran Abs Auto 0.01 X10*3/uL (0.00-0.03); Imm Gran Pct Auto 0.3 % (0.0-0.4); Lymphocytes Absolute Auto 1.3 X10*3/uL (1.2-4.9); Lymphocytes Percent Auto 35.2 % (20-40); Mean Corpuscular HGB Conc 32.6 g/dl (31.0-36.0); Mean Corpuscular Hemoglobin 26.3 pg (27.0-33.0); Mean Corpuscular Volume 80.7 fL (80.0-98.0); Mean Platelet Volume 9.6 fL (9.4-12.4); Monocytes Absolute Auto 0.5 X10*3/uL (0.1-1.2); Monocytes Percent Auto 13.4 % (2-11); NRBC Pct Auto 0.6 /100WBC (0.0-0.2); Neutrophils Absolute Auto 1.6 x10*3/uL (2.0-8.3); Neutrophils Percent Auto 44.9 % (45-73); Platelet Count 259 X10*3/uL (160-400); Red Blood Count 3.84 X10*6/uL (4.60-5.80); Red Cell Distribution Width 18.7 % (11.0-16.0); White Blood Count 3.6 X10*3/uL (4.8-10.8)
--- NOTE | 2024-07-03 | ED.GENADULT ---
HPI - General Adult General Chief complaint: Nausea/Vomiting/Diarrhea Stated complaint: Vomiting coffee ground- like fluid for 10 mins Time Seen by Provider: 07/02/24 23:42 Source: patient, EMS and senior business consultant Mode of arrival: EMS Limitations: other ( Limited historian secondary to traumatic brain injury.) History of Present Illness ED Provider: DR. Terrazas HPI narrative: 68-year-old male speak only [place] creaole history of traumatic brain injury and lacks of insight as why he is in the emergency department. Able to give limited history via senior business consultant stated that he vomited chocolate that he ate last night. the patient currently declined any abdominal pain, no shortness of breath, no coughing, no difficulty breathing, no fever, no chills, no sick contacts. Related Data Home Medications ?Medication ?Instructions ?Recorded ?Confirmed aluminum-mag hydroxide-simethicone 5 ml PO QID PRN 05/25/24 400 mg-400 mg-40 mg/5 mL oral susp (Mylanta Maximum Strength) benztropine 0.5 mg tablet 0.5 mg PO DAILY 05/25/24 carbamazepine 400 mg 400 mg PO BID 05/25/24 tablet,extended release,12 hr cholecalciferol (vitamin D3) 25 25 mcg PO DAILY 05/25/24 mcg (1,000 unit) capsule famotidine 40 mg tablet 40 mg PO DAILY 05/25/24 ferrous fumarate 325 mg (106 mg 325 mg PO DAILY 05/25/24 iron) tablet fluphenazine HCl 10 mg tablet 10 mg PO DAILY 05/25/24 glucagon 1 mg solution for 1 mg subcut Q20M PRN 05/25/24 injection levetiracetam 1,000 mg tablet 1,000 mg PO BID 05/25/24 (Keppra) lorazepam 2 mg/mL injection syringe 2 mg IV Q10M 05/25/24 metoprolol succinate 25 mg 25 mg PO DAILY 05/25/24 tablet,extended release 24 hr olanzapine 10 mg tablet 10 mg PO BEDTIME 05/25/24 pregabalin 100 mg capsule (Lyrica) 100 mg PO BEDTIME 05/25/24 rivaroxaban 20 mg tablet (Xarelto) 20 mg PO DAILY 05/25/24 sennosides 8.6 mg capsule (senna) 8.6 mg PO BEDTIME 05/25/24 Previous Rx's ?Medication ?Instructions ?Recorded sodium phosphates 19 gram-7 118 ml MN DAILY 3 days #133 mL 04/19/23 gram/118 mL enema (Fleet Enema) Allergies Allergy/AdvReac Type Severity Reaction Status Date / Time No Known Drug Allergies Allergy Unknown none Verified 07/02/24 23:34 Review of Systems Review of Systems: Yes Unobtainable due to mental status [facility] Past Medical History Medical History Psychotic disorder Hyperlipidemia DVT (deep venous thrombosis) Epilepsy Diabetes mellitus Hypertension TBI (traumatic brain injury) Social History Social History Unable to assess alcohol history related to: Unknown Patient Tobacco Use Status: Tobacco use Unknown Smoked in Last 30 Days: No Use of substances other than those prescribed or required for medical reasons: No Advance Directives: No Advance Directives Information Provided: Yes Physical Exam ED Vital Signs: Vital Signs - 24 hr 07/02/24 23:31 07/02/24 23:34 07/03/24 02:07 Temperature 97.4 F 97.7 F 98.1 F Pulse Rate 67 65 65 Respiratory Rate 20 14 22 H Blood Pressure 117/62 117/62 138/81 Pulse Oximetry 97 94 95 Oxygen Delivery Method Room Air Room Air Room Air BMI result Body Mass Index 23.3 Vital signs have been reviewed and appear to be correct. Blood pressure elevated. Heart rate normal. Respiratory rate normal. Temperature normal. Oxygen saturation normal. Appearance: Alert. No acute distress. Head: Normal external exam. Normocephalic. Atraumatic. No Velasquez signs noted. No raccoon eyes noted Eyes: PERRLA. EOMI. Conjunctiva and sclera normal. Eyelids normal. ENT: TM's Normal. Pharynx normal. Uvula midline. Moist mucous membranes. No trismus noted. No drooling noted. No muffled voice noted. Neck: Normal inspection. Neck supple. FROM. No adenopathy. Thyroid Normal. No meningeal signs. No neck mass noted. CVS: Normal heart rate and rhythm. Heart sound normal. No murmurs noted. Pulses normal throughout. Respiratory: No respiratory distress. Painless inspiration. Breath sounds normal. No wheezes/rales/rhonchi noted. Chest nontender. No accessory muscle usage noted or decreased air movement noted. Abdomen: Soft and nontender. Bowel sounds normal in all 4 quadrants. No distention noted. No organomegaly noted. No visible injury noted. Back: No CVA tenderness. Full range of motion noted. Skin: Skin warm and dry. Normal skin color. Normal skin turgor. No rashes/lesions/lacerations noted. Extremities: No lower extremity edema. Extremities exhibit normal range of motion. Extremities nontender. Neuro: Cranial nerve exam: II-XII are grossly intact No motor deficit. No sensory deficit. Reflexes normal. Course Reevaluation(s) Reevaluation #1: a poor historian even with using the senior business consultant ( brendan jimenez), according to the patient history he ate chocolate then he in the up thrown up, patient was given Maalox and Protonix in the emergency department was given p.o. challenge with no nausea or vomiting, patient with chronic anemia H&H at baseline. Time: 03:29 Medications Administered Discontinued Medications Generic Name Dose Route Start Last Admin Trade Name Freq PRN Reason Stop Dose Admin Al Hydroxide/Mg Hydroxide 30 ml 07/03/24 00:06 07/03/24 00:17 Magnesium Hydrox/Alum Hydrox 30 Ml Oral.Susp PO 07/03/24 00:07 30 ml ONCE ONE Administration Sodium Chloride 1,000 mls @ 999 mls/hr 07/03/24 00:06 07/03/24 02:10 Ns IV 07/03/24 01:06 Infused .Q1H1M ONE Infusion Pantoprazole Sodium 40 mg 07/03/24 00:06 07/03/24 00:17 Pantoprazole Sodium 40 Mg/10 Ml Vial IVPUSH 07/03/24 00:07 40 mg ONCE ONE Administration Medical Decision Making Differential Diagnosis Differential Diagnoses: The differential diagnosis associated with the presentation includes ( Hematemesis, hemoptysis, electrolyte derangement, severe anemia, pneumonia, pneumothorax, pleural effusion.) Admission/Observation Consideration of admission/observation: Escalation of care including admission/observation considered Lab Data MDM Lab Attestation statement: I reviewed the patient's lab results. 07/02/24 23:45 07/02/24 23:45 Labs: Lab Results 07/02/24 Range/Units 23:45 WBC 3.6 L (4.8-10.8) X10*3/uL RBC 3.84 L (4.60-5.80) X10*6/uL Hgb 10.1 L (14.0-18.0) g/dl Hct 31.0 L (42.0-52.0) % MCV 80.7 (80.0-98.0) fL MCH 26.3 L (27.0-33.0) pg MCHC 32.6 (31.0-36.0) g/dl RDW 18.7 H (11.0-16.0) % Plt Count 259 (160-400) X10*3/uL MPV 9.6 (9.4-12.4) fL Immature Gran % (Auto) 0.3 (0.0-0.4) % Neut % (Auto) 44.9 L (45-73) % Lymph % (Auto) 35.2 (20-40) % Sharp % (Auto) 13.4 H (2-11) % Eos % (Auto) 5.6 H (0-4) % Baso % (Auto) 0.6 (0-2) % Lymph # (Auto) 1.3 (1.2-4.9) X10*3/uL Sharp # (Auto) 0.5 (0.1-1.2) X10*3/uL Eos # (Auto) 0.2 (0.0-0.4) X10*3/uL Baso # (Auto) 0.0 (0.0-0.2) X10*3/uL Abs Immat Gran (auto) 0.01 (0.00-0.03) X10*3/uL Absolute Neuts (auto) 1.6 L (2.0-8.3) x10*3/uL Absolute Nucleated RBC 0.020 H (0.0-0.012) X10*3/uL Nucleated RBC % (auto) 0.6 H (0.0-0.2) /100WBC Sodium 140 (135-145) mmol/L Potassium 5.2 H D (3.3-5.1) mmol/L Chloride 112 H (96-108) mmol/L Carbon Dioxide 21 L (22-29) mmol/L Anion Gap 12 (12-20) BUN 18 H (9-16) mg/dL Creatinine 0.93 (0.5-1.4) mg/dL Estim Creat Clear Calc 83.4 Estimated GFR > 60 Random Glucose 100 (60-115) mg/dL Calcium 8.4 D (8.4-10.2) mg/dL Total Bilirubin 0.2 (0.0-1.0) mg/dL AST 40 H (5-37) U/L ALT 16 (0-40) U/L Alkaline Phosphatase 56 (39-117) U/L Total Protein 7.0 (6.5-8.0) g/dL Albumin 3.0 L (3.5-5.0) g/dL Lipase 21 (8-78) U/L Independent Interpretation I performed an independent interpretation of an: Plain X-Ray ( Chest: Cardiomegaly without failure.) Radiology Impression Discussion of test interpretation with radiology: I have reviewed the radiologist's reading. Discharge Plan Discharge Clinical Impression: Vomiting Patient Disposition: Xfer SNF Instructions: Acute Nausea and Vomiting (ED) Prescriptions: No Action Fleet Enema 19-7 gram/118 mL enema 118 ml MN DAILY 3 Days Qty: 133 3RF lorazepam 2 mg/mL syringe 2 mg IV Q10M Rx Instructions: until symptoms controlled benztropine 0.5 mg tablet 0.5 mg PO DAILY carbamazepine 400 mg tablet extended release 12 hr 400 mg PO BID fluphenazine HCl 10 mg tablet 10 mg PO DAILY levetiracetam [Keppra] 1,000 mg tablet 1,000 mg PO BID senna 8.6 mg capsule 8.6 mg PO BEDTIME cholecalciferol (vitamin D3) 25 mcg (1,000 unit) capsule 25 mcg PO DAILY Xarelto 20 mg tablet 20 mg PO DAILY Rx Instructions: must administer with evening meal olanzapine 10 mg tablet 10 mg PO BEDTIME alum-mag hydroxide-simeth [Mylanta Maximum Strength] 400-400-40 mg/5 mL suspension 5 ml PO QID PRN pregabalin [Lyrica] 100 mg capsule 100 mg PO BEDTIME glucagon 1 mg recon soln 1 mg subcut Q20M PRN Rx Instructions: until target blood sugar attained metoprolol succinate 25 mg tablet extended release 24 hr 25 mg PO DAILY famotidine 40 mg tablet 40 mg PO DAILY ferrous fumarate 325 mg (106 mg iron) tablet 325 mg PO DAILY Print Language: Puerto Ricank[place] Jimenez
[2024-07-03 00:04] LABS: Alanine Aminotransferase 16 U/L (0-40); Alkaline Phosphatase 56 U/L (39-117); Anion Gap 12 (12-20); Aspartate Amino Transferase 40 U/L (5-37); Bilirubin Total 0.2 mg/dL (0.0-1.0); Blood Urea Nitrogen 18 mg/dL (9-16); Calcium 8.4 mg/dL (8.4-10.2); Carbon Dioxide 21 mmol/L (22-29); Chloride 112 mmol/L (96-108); Creatinine Clr Calc Pharmacy 83.4; Estimated Glomerular Filt Rate > 60; Glucose Random 100 mg/dL (60-115); Potassium 5.2 mmol/L (3.3-5.1); Sodium 140 mmol/L (135-145)
[2024-07-03] MEDS: Pantoprazole Sodium 40 MG/10 ML VIAL IVPUSH (00:17)
[2024-07-03] MEDS: 0.9 % Sodium Chloride 1,000 ML 999 ML IV (00:17)
[2024-07-03] MEDS: Magnesium Hydrox/Alum Hydrox 30 ML ORAL.SUSP PO (00:17)
[2024-07-03 00:20] LABS: Lipase 21 U/L (8-78)
[2024-07-03 02:07] VITALS: BP 138/81; PULSE 65; RESP 22; TEMP 36.7; O2SAT 95
--- NOTE | 2024-07-03 04:06 | PC.NURSE ---
patient was given PO trial. no vomiting after. report given [facility]. patient waiting for transport back to facility.
[2024-07-03 04:21] VITALS: BP 109/65; PULSE 53; RESP 20; O2SAT 95
[2024-07-03 04:37] VITALS: BP 109/65; PULSE 53; RESP 20; TEMP 36.7; O2SAT 95
== END 2024-07-03 04:38 | disposition skilled nursing facility (03) ==
PROVIDERS: Emergency Provider Emergency Medicine
DX: R11.2 Nausea with vomiting, unspecified (principal); R05.9 Cough, unspecified; Z79.899 Other long term (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; Z87.820 Personal history of traumatic brain injury
CPT/HCPCS: 36415; 71045; 80053; 83690; 85025; 96361; 96374; 99284; J2470

== ENCOUNTER → 2024-07-02 | Outpatient (BNV) | payer MEDICARE, MEDICAID, SELFPAY | PROVIDERS: Emergency Provider Emergency Medicine; Visit Provider Radiology Diagnostic Radiology | DX: I51.7 Cardiomegaly (principal) | CPT/HCPCS: 71045 ==

== ENCOUNTER 2024-08-03 07:57 | Outpatient (REF) | payer MEDICARE, MEDICAID, SELFPAY ==
--- NOTE | ~2024-08-03 | CT_ITS ---
CLINICAL HISTORY: K76.89 - Other specified diseases of liver CT angiography abdomen with contrast. Precontrast and delayed contrast images are also obtained. 3-D post processing. Comparison: CT/REG/CO/SR - CT ABDOMEN PELVIS W IV CON - 08/22/23 13:[address]/CO/SR - CT ABDOMEN PELVIS W IV CON - 04/19/23 02:40 EST Findings: Aorta, mesenteric and renal arteries are within normal limits. The lung bases are clear. No arterially enhancing masses identified. Multiple small hepatic cysts are present measuring up to 1.8 cm in the left liver. Gallbladder is unremarkable. Small 1.1 cm hypodensity in the pancreatic tail region noted. Spleen, adrenal glands and kidneys are unremarkable. No significant intra-abdominal free fluid. IMPRESSION: No arterially enhancing hepatic lesions identified. 1.8 cm low-density or cystic structure in the pancreatic tail, possibly pseudocyst versus cystic pancreatic neoplasm, grossly unchanged since 2022. This document has been electronically signed by: Robin Herron MD, PHD on 08/04/2024 05:10:14
[2024-08-03] MEDS: iohexoL 350 MG/ML 75 ML INFUS..BTL 85 ML IV (10:24)
[2024-08-04 09:22] LABS: Creatinine POC 0.7 mg/dL (0.5-1.4); GFR POC > 60
== END 2024-08-03 07:58 | disposition home or self-care (01) ==
LOC: HO.CT 07:57
PROVIDERS: Visit Provider Nurse Practitioner Family
DX: K76.89 Other specified diseases of liver (principal)
CPT/HCPCS: 74170; 82565; Q9967

== ENCOUNTER → 2024-08-03 07:59 | Outpatient (BNV) | payer MEDICARE, MEDICAID, SELFPAY | PROVIDERS: Visit Provider General Practice | DX: K76.89 Other specified diseases of liver (principal) | CPT/HCPCS: 74170 ==

== ENCOUNTER 2024-08-10 10:53 | Outpatient (REF) | payer MEDICARE, MEDICAID, SELFPAY ==
--- NOTE | ~2024-08-10 | FL_ITS ---
EXAMINATION: XR GI SERIES CLINICAL INFORMATION: History of gastroesophageal reflux disease without esophagitis. COMPARISON: None available. TECHNIQUE: Routine upper GI contrast study was obtained in upright view. Subsequently patient was placed supine and prone lying imaging was performed. FINDINGS: Following oral administration of thick barium there is normal propagation bolus from the oral cavity into the significantly distended aperistaltic esophagus. The patient was placed in right and left lateral ligament is lying position with drainage with slow propagation of bolus into the stomach. On placing patient in supine lying the stomach is undistended with majority of barium still remaining in the midesophagus. No dural bulb and sweep is visualized but slow moving peristalsis throughout the duodenum. Fluoroscopy time: 1 minute 48 seconds. 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 The stomach and duodenum is nondistended but grossly unremarkable. Electronically signed by: Olvin Maddox MD 08/10/2024 03:24 PM EDT
--- OUTSIDE RECORDS SUMMARY | 2024-08-10 13:02 | XMS_ITS | Encounter Summary ---
Author Organization [employer] Address [address] [place] [address] Care Team Providers Care Slabbing Machine Operator Name Role Phone Jeramie Schwartz MD Primary Care Provider [phone] Encounter Details Date Type Department Care Team (Late st Contact Info) Description 07/27/[address] [facility] [address] [place] [address] Jeramie Schwartz MD [address] [place] [address] [address] [place], [place] Benign prostatic hyperplasia without lower urinary tract symptoms Social History Tobacco Use Types Packs/Day Years [...] Procedure Name Priority Date/Time Associated Diagnosis Comments CREATININE, SERUM Routine 07/27/2024 4:4 4 AM EDT Benign prostatic hyperplasia without lower urinary tract symptoms BUN Routine 07/27/2024 4:44 AM EDT Benign prostatic hyperplasia without lower urinary tract symptoms documented in this encounter Results * Creatinine (07/27/2024 4:44 AM EDT) Creatinine 1.02 0.70 - 1.30 mg/dL LAB CHEMISTRY METHOD 07/27/2024 5:[address] [facility] eGFR 80 >=60 mL/min/1. 73m2 LAB CHEMISTRY METHOD 07/27/2024 5:[address] [facility] Comment:Calculation based on the??Chronic Kidney Disease Epidemiology Collaboration (CKD-EPI) equation refit??without adjustment for race. Blood Venous blood specimen / Unknown 07/27/2024 4:44 AM EDT 07/27/2024 5:27 AM EDT us Jeramie Schwartz MD LAB BLOOD ORDERABLES Final Resul t Performing Organization Address [facility] Co de Phone Number [facility] [address] [place] [address], [place] [phone] * BUN (07/27/2024 4:44 AM EDT) BUN 18 5 - 25 mg/dL LAB CHEMISTRY METHOD 07/27/2024 5:[address] [facility] Blood Venous blood specimen / Unknown 07/27/2024 4:44 AM EDT 07/27/2024 5:27 AM EDT us Jeramie Schwartz MD LAB BLOOD ORDERABLES Final Resul t Performing Organization Address [facility] de Phone Number [facility] [address] [place] [address], [place] [phone] documented in this encounter Visit Diagnoses Diagnosis Benign prostatic hyperplasia without lower urinary tract symptoms documented in this encounter Care Teams Slabbing Machine Operator Relationship Specialty Start Date End Date Jeramie Schwartz MD [address] [place] PCP - General Internal Medicine 06/02/24 documented as of this encounter
--- OUTSIDE RECORDS SUMMARY | 2024-08-10 13:02 | XMS_ITS | Clinical Summary ---
Author Organization [address] Address [address] [place] [address] Phone Care Team Providers Care Retirement Assistant Name Role Phone Jeramie Schwartz MD Primary Care Provider [phone] Encounters Date Type Department Care Team Description 07/27/2024 Lab Requisition [facility] Lab [address] [place] [address] Jeramie Schwartz MD Benign prostatic hyperplasia without lower urinary tract symptoms 07/07/2024 Lab Requisition [facility] [address] [place] [address] Jeramie Schwartz MD 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 unspecified duration, sequela (CMS/HCC); Acute embolism and thrombosis of unspecified deep veins of right lower extremity (CMS/HCC); Hyperlipidemia, unspecified; Vitamin D deficiency, unspecified; Type 2 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, left eye (CMS/HCC) from Last 3 Months Social History Tobacco Use Types Packs/Day Years Used Date Smoking Tobacco: Never Assessed Sex and Gender Information Value Date Recorded Sex Assigned at Not on file Legal Sex Male 8:09 PM EST Gender Identity Not on file Sexual Orientation Not on file Plan of Treatment Health Maintenance Due Date Last Done Comments Diabetes: Annual Foot Exam 08/09/1965 Diabetes: Annual Retina Eye Exam 08/09/1965 DTaP,Tdap,and Td Vaccines (1 - Tdap) 08/09/1974 Pneumococcal Vaccine: 50+ Years (1 of 2 - PCV) 08/09/1974 Zoster Vaccines (1 of 2) 08/09/2005 RSV Immunization Adult Patients (1 - Risk 60-74 years 1-dose series) 2015 Abdominal Aortic Aneurysm (AAA) Screen 05/30/2023 Cholesterol Screening (Lipid Panel) 05/30/2023 Colorectal Cancer Screening: Colonoscopy 05/30/2023 Depression Screening 05/30/2023 Falls Risk Assessment 05/30/2023 Hepatitis C Screening 05/30/2023 Medicare Annual Wellness Visit 05/30/2023 Social Influencers of Health Screening 05/30/2023 COVID-19 Vaccine (2023-2 5 season) 2024 Diabetes: Annual Urine Albumin-Creatinine Ratio (uACR) 07/09/2024 Influenza Vaccine (Season Ended) 2025 Diabetes: Blood Sugar Contro l Test (HGBA1C) 01/07/2025 07/07/2024, 04/08/2024 Diabetes: Annual GFR (Glomerular Filtration Rate) 07/27/2025 07/27/2024 HIB Vaccines Aged Out No longer eligi [...] to complete this topic RSV Immunization Patients Under 20 months Aged Out No longer eligible [...] prostatic hyperplasia without lower urinary tract symptoms HEMOGLOBIN A1C Routine 07/07/2024 6:53 AM EST 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 unspecified duration, sequela (CMS/HCC) Acute embolism and thrombosis of unspecified deep veins of right lower extremity (CMS/HCC) Hyperlipidemia, unspecified Vitamin D deficiency, unspecified Type 2 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, left eye (CMS/HCC) CBC WITH AUTO DIFFERENTIAL Routine 07/07/2024 6:53 AM EST 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 unspecified duration, sequela (CMS/HCC) Acute embolism and thrombosis of unspecified deep veins of right lower extremity (CMS/HCC) Hyperlipidemia, unspecified Vitamin D deficiency, unspecified Type 2 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, left eye (CMS/HCC) CBC AND DIFFERENTIAL Routine 07/07/2024 6:53 AM EST 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 unspecified duration, sequela (CMS/HCC) Acute embolism and thrombosis of unspecified deep veins of right lower extremity (CMS/HCC) Hyperlipidemia, unspecified Vitamin D deficiency, unspecified Type 2 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, left eye (CMS/HCC) from Last 3 Months Results * Creatinine (07/27/2024 4:44 AM EDT) Pathologist [facility] Creatinine 1.02 0.70 - 1.30 mg/dL LAB CHEMISTRY METHOD 07/27/2024 5:44 AM EDT [facility] eGFR 80 >=60 mL/min/1. 73m2 LAB CHEMISTRY METHOD 07/27/2024 5:44 AM EDT [facility] Comment:Calculation based on the??Chronic Kidney Disease Epidemiology Collaboration (CKD-EPI) equation refit??without adjustment for race. Blood Venous blood specimen / Unknown 07/27/2024 4:44 AM EDT 07/27/2024 5:27 AM EDT us Jeramie Schwartz MD LAB BLOOD ORDERABLES Final Resul t [facility] [address] [place] [address], * BUN (07/27/2024 4:44 AM EDT) Pathologist [facility] BUN 18 5 - 25 mg/dL LAB CHEMISTRY METHOD 07/27/2024 5:44 AM EDT [facility] Blood Venous blood specimen / Unknown 07/27/2024 4:44 AM EDT 07/27/2024 5:27 AM EDT us Jeramie Schwartz MD LAB BLOOD ORDERABLES Final Resul t [facility] [address] [place] [address], [place] [phone] * (ABNORMAL) CBC auto differential (07/07/2024 6:53 AM EST) [facility] WBC 4.7(L) 4.8 - 10.8 K/mcL LAB HEMETOLOGY METHOD 07/07/2024 9:44 AM [facility] RBC 4.00(L) 4.50 - 5.50 M/[facility] LAB HEMETOLOGY METHOD 07/07/2024 9:44 AM [facility] Hemoglobin 10.4(L) 13.5 - 17.5 g/dL LAB HEMETOLOGY METHOD 07/07/2024 9:44 AM [facility] Hematocrit 33.5(L) 42.0 - 54.0 % LAB HEMETOLOGY METHOD 07/07/2024 9:44 AM [facility] MCV 84.2 79.0 - 98.0 FL LAB HEMETOLOGY METHOD 07/07/2024 9:44 AM [facility] MCH 26.1(L) 27.0 - 32.0 pcg LAB HEMETOLOGY METHOD 07/07/2024 9:44 AM [facility] MCHC 31.0(L) 32.0 - 37.0 g/dL LAB HEMETOLOGY METHOD 07/07/2024 9:44 AM [facility] RDW 19.0(H) 11.0 - 15.0 % LAB HEMETOLOGY METHOD 07/07/2024 9:44 AM [facility] Platelets 275 130 - 400 K/mcL LAB HEMETOLOGY METHOD 07/07/2024 9:44 AM [facility] MPV 10.9 7.0 - 11.0 FL LAB HEMETOLOGY METHOD 07/07/2024 9:44 AM [facility] NRBC 0.0 <1.0 % LAB HEMETOLOGY METHOD 07/07/2024 9:44 AM [facility] NRBC Absolute 0.00 <0.10 K/mcL LAB HEMETOLOGY METHOD 07/07/2024 9:44 AM [facility] Neutrophils Relative 65.9 % LAB HEMETOLOGY METHOD 07/07/2024 9:44 AM [facility] Lymphocytes Relative 15.7 % LAB HEMETOLOGY METHOD 07/07/2024 9:44 AM [facility] Monocytes Relative 12.9 % LAB HEMETOLOGY METHOD 07/07/2024 9:44 AM [facility] Eosinophils Relative 4.5 % LAB HEMETOLOGY METHOD 07/07/2024 9:44 AM [facility] Basophils Relative 0.4 % LAB HEMETOLOGY METHOD 07/07/2024 9:44 AM [facility] Immature Granulocytes Relative 0.6 % LAB HEMETOLOGY METHOD 07/07/2024 9:44 AM [facility] Neutrophils Absolute 3.06 1.50 - 7.00 K/mcL LAB HEMETOLOGY METHOD 07/07/2024 9:44 AM [facility] Lymphocytes Absolute 0.73(L) 1.00 - 5.00 K/mcL LAB HEMETOLOGY METHOD 07/07/2024 9:44 AM [facility] Monocytes Absolute 0.60 0.20 - 1.00 K/mcL LAB HEMETOLOGY METHOD 07/07/2024 9:44 AM EST [facility] Eosinophils Absolute 0.21 0.00 - 0.50 K/[facility] HEMETOLOGY METHOD 07/07/2024 9:44 AM EST [facility] Basophils Absolute 0.02 0.00 - 0.20 K/[facility] HEMETOLOGY METHOD 07/07/2024 9:44 AM EST [facility] Immature Granulocytes Absolute 0.03 0.00 - 0.03 K/[facility] HEMETOLOGY METHOD 07/07/2024 9:44 AM EST [facility] Blood Venous blood specimen / Unknown 07/07/2024 6:53 AM EST 07/07/2024 8:36 AM EST us Jeramie Schwartz MD LAB BLOOD ORDERABLES Final Resul t Performing Organization Address City/[facility]/ZIP Co de Phone Number [facility] [address] [place] [address], [place] [phone] * Hemoglobin A1c (07/07/2024 6:53 AM EST) Hemoglobin A1C 5.4 <6.5 % LAB CHEMISTRY METHOD 07/07/2024 2:30 PM EST [facility] Mean Bld Glu Estim. 108 mg/dL LAB CHEMISTRY METHOD 07/07/2024 2:30 PM EST [facility] Blood Venous blood specimen / Unknown 07/07/2024 6:53 AM EST 07/07/2024 8:36 AM EST us Jeramie Schwartz MD LAB BLOOD ORDERABLES Final Resul t Performing Organization Address City/[facility]/ZIP Co de Phone Number [facility] [address] [place] [address], [place] [phone] from Last 3 Months Insurance [employer] [address] [id number] MEDICARE Care Teams Retirement Assistant Relationship Specialty Start Date End Date Jeramie Schwartz MD [address] [place], [place] PCP - General Internal Medicine 06/02/24
--- OUTSIDE RECORDS SUMMARY | 2024-08-10 13:02 | XMS_ITS | Encounter Summary ---
Author Organization [employer] Address [address] [place] [address] Care Team Providers Care Vehicle Return Associate Name Role Phone Jeramie Schwartz MD Primary Care Provider [phone] Encounter Details Date Type Department Care Team (Late st Contact Info) Description 03/26/2024 Lab Requisition [facility] Lab [address] [place] [address] Jeramie Schwartz MD [address] [place] [address] [address] [place], [place] Diffuse traumatic brain injury with loss [...] AM EST) WBC 3.0(L) 4.8 - 10.8 K/[facility] LAB HEMETOLOGY METHOD 03/26/2024 7:46 AM EST [facility] LAB RBC 3.80(L) 4.50 - 5.50 M/[facility] LAB HEMETOLOGY METHOD 03/26/2024 7:46 AM [facility] LAB Hemoglobin 9.8(L) 13.5 - 17.5 g/dL LAB HEMETOLOGY METHOD 03/26/2024 7:46 AM [facility] LAB Hematocrit 31.5(L) 42.0 - 54.0 % LAB HEMETOLOGY METHOD 03/26/2024 7:46 AM [facility] LAB MCV 83.8 79.0 - 98.0 FL LAB HEMETOLOGY METHOD 03/26/2024 7:46 AM [facility] LAB MCH 26.1(L) 27.0 - 32.0 pcg LAB HEMETOLOGY METHOD 03/26/2024 7:46 AM [facility] LAB MCHC 31.1(L) 32.0 - 37.0 g/dL LAB HEMETOLOGY METHOD 03/26/2024 7:46 AM [facility] LAB RDW 15.9(H) 11.0 - 15.0 % LAB HEMETOLOGY METHOD 03/26/2024 7:46 AM [facility] LAB Platelets 263 130 - 400 K/mcL LAB HEMETOLOGY METHOD 03/26/2024 7:46 AM [facility] LAB MPV 9.7 7.0 - 11.0 FL LAB HEMETOLOGY METHOD 03/26/2024 7:46 AM [facility] LAB NRBC 0.0 <1.0 % LAB HEMETOLOGY METHOD 03/26/2024 7:46 AM [facility] LAB NRBC Absolute 0.00 <0.10 K/mcL LAB HEMETOLOGY METHOD 03/26/2024 7:46 AM [facility] LAB Neutrophils Relative 47.8 % LAB HEMETOLOGY METHOD 03/26/2024 7:46 AM [facility] LAB Lymphocytes Relative 26.7 % LAB HEMETOLOGY METHOD 03/26/2024 7:46 AM EST [facility] LAB Monocytes Relative 14.9 % LAB HEMETOLOGY METHOD 03/26/2024 7:46 AM [facility] LAB Eosinophils Relative 9.6 % LAB HEMETOLOGY METHOD 03/26/2024 7:46 AM [facility] LAB Basophils Relative 0.7 % LAB HEMETOLOGY METHOD 03/26/2024 7:46 AM [facility] LAB Immature Granulocytes Relative 0.3 % LAB HEMETOLOGY METHOD 03/26/2024 7:46 AM [facility] LAB Neutrophils Absolute 1.45(L) 1.50 - 7.00 K/mcL LAB HEMETOLOGY METHOD 03/26/2024 7:46 AM [facility] LAB Lymphocytes Absolute 0.81(L) 1.00 - 5.00 K/mcL LAB HEMETOLOGY METHOD 03/26/2024 7:46 AM [facility] LAB Monocytes Absolute 0.45 0.20 - 1.00 K/mcL LAB HEMETOLOGY METHOD 03/26/2024 7:46 AM [facility] LAB Eosinophils Absolute 0.29 0.00 - 0.50 K/mcL LAB HEMETOLOGY METHOD 03/26/2024 7:46 AM [facility] LAB Basophils Absolute 0.02 0.00 - 0.20 K/mcL LAB HEMETOLOGY METHOD 03/26/2024 7:46 AM [facility] LAB Immature Granulocytes Absolute 0.01 0.00 - 0.03 K/mcL LAB HEMETOLOGY METHOD 03/26/2024 7:46 AM [facility] LAB Blood Venous blood specimen / Unknown 03/26/2024 6:55 AM EST 03/26/2024 7:35 AM EST us Jeramie Schwartz MD LAB BLOOD ORDERABLES Final Resul t [facility] LAB [address] [place] [address], documented in this encounter Visit Diagnoses Diagnosis 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 unspecified duration, sequela (CMS/HCC) documented in this encounter Care Teams Vehicle Return Associate Relationship Specialty Start Date End Date Jeramie Schwartz MD [address] [place] [address] Dr [address] [place], [place] PCP - General Internal Medicine 06/02/24 documented as of this encounter
--- OUTSIDE RECORDS SUMMARY | 2024-08-10 13:02 | XMS_ITS | Encounter Summary ---
Author Organization [employer] Address [address] [place] [address] Care Team Providers Care Windlace Machine Operator Name Role Phone Jeramie Schwartz MD Primary Care Provider Encounter Details Date Type Department Care Team (Latest Contact Info) Description 07/07/2024 Lab Requisition [facility] - Main Lab [address] [facility] [employer] [place] [address] Jeramie Schwartz MD [address] [place] [address] [address] [place], [place] 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 unspecified duration, sequela (CMS/HCC); Acute embolism and thrombosis of unspecified deep veins of right lower extremity (CMS/HCC); Hyperlipidemia, unspecified; Vitamin D deficiency, unspecified; Type 2 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, left eye (CMS/HCC) Social History Tobacco Use Types Packs/Day [...] Diagnosis Comments CBC WITH AUTO DIFFERENTIAL Routine 07/07/2024 6:53 [...] diabetic retinopathy with macular edema, left eye ([facility]) HEMOGLOBIN A1C Routine 07/07/2024 6:53 AM EST 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 unspecified duration, sequela ([facility]) Acute embolism and thrombosis of unspecified deep veins of right lower extremity (CMS/HCC) Hyperlipidemia, unspecified Vitamin D deficiency, unspecified Type 2 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, left eye ([facility]) documented in this encounter Results * Hemoglobin A1c (07/07/2024 6:53 AM EST) Pathologist [facility] Hemoglobin A1C 5.4 <6.5 % LAB CHEMISTRY METHOD 07/07/2024 2:30 PM EST [facility] LAB Mean Bld Glu Estim. 108 mg/dL LAB CHEMISTRY METHOD 07/07/2024 2:30 PM [facility] LAB Blood Venous blood specimen / Unknown 07/07/2024 6:53 AM EST 07/07/2024 8:36 AM EST Jeramie Schwartz MD LAB BLOOD ORDERABLES Final Resul t [facility] LAB [address] [place] [address], * (ABNORMAL) CBC auto differential (07/07/2024 6:53 AM EST) [facility] WBC 4.7(L) 4.8 - 10.8 K/mcL LAB HEMETOLOGY METHOD 07/07/2024 9:44 AM EST [facility] LAB RBC 4.00(L) 4.50 - 5.50 M/mcL LAB HEMETOLOGY METHOD 07/07/2024 9:44 AM EST [facility] LAB Hemoglobin 10.4(L) 13.5 - 17.5 g/dL LAB HEMETOLOGY METHOD 07/07/2024 9:44 AM [facility] LAB Hematocrit 33.5(L) 42.0 - 54.0 % LAB HEMETOLOGY METHOD 07/07/2024 9:44 AM [facility] LAB MCV 84.2 79.0 - 98.0 FL LAB HEMETOLOGY METHOD 07/07/2024 9:44 AM [facility] LAB MCH 26.1(L) 27.0 - 32.0 pcg LAB HEMETOLOGY METHOD 07/07/2024 9:44 AM [facility] LAB MCHC 31.0(L) 32.0 - 37.0 g/dL LAB HEMETOLOGY METHOD 07/07/2024 9:44 AM [facility] LAB RDW 19.0(H) 11.0 - 15.0 % LAB HEMETOLOGY METHOD 07/07/2024 9:44 AM [facility] LAB Platelets 275 130 - 400 K/mcL LAB HEMETOLOGY METHOD 07/07/2024 9:44 AM [facility] LAB MPV 10.9 7.0 - 11.0 FL LAB HEMETOLOGY METHOD 07/07/2024 9:44 AM [facility] LAB NRBC 0.0 <1.0 % LAB HEMETOLOGY METHOD 07/07/2024 9:44 AM [facility] LAB NRBC Absolute 0.00 <0.10 K/mcL LAB HEMETOLOGY METHOD 07/07/2024 9:44 AM [facility] LAB Neutrophils Relative 65.9 % LAB HEMETOLOGY METHOD 07/07/2024 9:44 AM [facility] LAB Lymphocytes Relative 15.7 % LAB HEMETOLOGY METHOD 07/07/2024 9:44 AM [facility] LAB Monocytes Relative 12.9 % LAB HEMETOLOGY METHOD 07/07/2024 9:44 AM [facility] LAB Eosinophils Relative 4.5 % LAB HEMETOLOGY METHOD 07/07/2024 9:44 AM EST [facility] LAB Basophils Relative 0.4 % LAB HEMETOLOGY METHOD 07/07/2024 9:44 AM [facility] LAB Immature Granulocytes Relative 0.6 % LAB HEMETOLOGY METHOD 07/07/2024 9:44 AM [facility] LAB Neutrophils Absolute 3.06 1.50 - 7.00 K/mcL LAB HEMETOLOGY METHOD 07/07/2024 9:44 AM [facility] LAB Lymphocytes Absolute 0.73(L) 1.00 - 5.00 K/mcL LAB HEMETOLOGY METHOD 07/07/2024 9:44 AM [facility] LAB Monocytes Absolute 0.60 0.20 - 1.00 K/mcL LAB HEMETOLOGY METHOD 07/07/2024 9:44 AM [facility] LAB Eosinophils Absolute 0.21 0.00 - 0.50 K/mcL LAB HEMETOLOGY METHOD 07/07/2024 9:44 AM [facility] LAB Basophils Absolute 0.02 0.00 - 0.20 K/mcL LAB HEMETOLOGY METHOD 07/07/2024 9:44 AM [facility] LAB Immature Granulocytes Absolute 0.03 0.00 - 0.03 K/mcL LAB HEMETOLOGY METHOD 07/07/2024 9:44 AM [facility] LAB Blood Venous blood specimen / Unknown 07/07/2024 6:53 AM EST 07/07/2024 8:36 AM EST us Jeramie Schwartz MD LAB BLOOD ORDERABLES Final Resul t [facility] LAB [address] [place] [address], documented in this encounter Visit Diagnoses Diagnosis 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 unspecified duration, sequela (CMS/HCC) Acute embolism and thrombosis of unspecified deep veins of right lower extremity Hyperlipidemia, unspecified Vitamin D deficiency, unspecified Type 2 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, left eye documented in this encounter Care Teams Windlace Machine Operator Relationship Specialty Start Date End Date Jeramie Schwartz MD [address] [place] [address] Dr [address] [place] PCP - General Internal Medicine 06/02/24 documented as of this encounter
--- OUTSIDE RECORDS SUMMARY | 2024-08-10 13:02 | XMS_ITS | Encounter Summary ---
Author Organization [employer] Address [address] [place] [address] Care Team Providers Care Sales Representative Metals Name Role Phone Jeramie Schwartz MD Primary Care Provider [phone] Encounter Details Date Type Department Care Team (Late st Contact Info) Description 03/11/2024 Lab Requisition [facility] Lab [address] [place] [address] Jeramie Schwartz MD [address] [place] [address] [address] [place], [place] Diffuse traumatic brain injury with loss [...] AM EST) WBC 3.2(L) 4.8 - 10.8 K/[facility] LAB HEMETOLOGY METHOD 03/11/2024 6:[address] [facility] LAB RBC 4.10(L) 4.50 - 5.50 M/[facility] LAB HEMETOLOGY METHOD 03/11/2024 6:59 AM [facility] LAB Hemoglobin 10.5(L) 13.5 - 17.5 g/dL LAB HEMETOLOGY METHOD 03/11/2024 6:59 AM [facility] LAB Hematocrit 34.8(L) 42.0 - 54.0 % LAB HEMETOLOGY METHOD 03/11/2024 6:59 AM [facility] LAB MCV 85.7 79.0 - 98.0 FL LAB HEMETOLOGY METHOD 03/11/2024 6:59 AM [facility] LAB MCH 25.9(L) 27.0 - 32.0 pcg LAB HEMETOLOGY METHOD 03/11/2024 6:59 AM [facility] LAB MCHC 30.2(L) 32.0 - 37.0 g/dL LAB HEMETOLOGY METHOD 03/11/2024 6:59 AM [facility] LAB RDW 16.6(H) 11.0 - 15.0 % LAB HEMETOLOGY METHOD 03/11/2024 6:59 AM [facility] LAB Platelets 287 130 - 400 K/mcL LAB HEMETOLOGY METHOD 03/11/2024 6:59 AM [facility] LAB MPV 11.1(H) 7.0 - 11.0 FL LAB HEMETOLOGY METHOD 03/11/2024 6:59 AM [facility] LAB NRBC 0.0 <1.0 % LAB HEMETOLOGY METHOD 03/11/2024 6:59 AM [facility] LAB NRBC Absolute 0.00 <0.10 K/mcL LAB HEMETOLOGY METHOD 03/11/2024 6:59 AM [facility] LAB Neutrophils Relative 38.2 % LAB HEMETOLOGY METHOD 03/11/2024 6:59 AM [facility] LAB Lymphocytes Relative 32.8 % LAB HEMETOLOGY METHOD 03/11/2024 6:59 AM [facility] LAB Monocytes Relative 17.8 % LAB HEMETOLOGY METHOD 03/11/2024 6:59 AM [facility] LAB Eosinophils Relative 10.3 % LAB HEMETOLOGY METHOD 03/11/2024 6:59 AM [facility] LAB Basophils Relative 0.6 % LAB HEMETOLOGY METHOD 03/11/2024 6:59 AM [facility] LAB Immature Granulocytes Relative 0.3 % LAB HEMETOLOGY METHOD 03/11/2024 6:59 AM [facility] LAB Neutrophils Absolute 1.22(L) 1.50 - 7.00 K/mcL LAB HEMETOLOGY METHOD 03/11/2024 6:59 AM [facility] LAB Lymphocytes Absolute 1.05 1.00 - 5.00 K/mcL LAB HEMETOLOGY METHOD 03/11/2024 6:59 AM [facility] LAB Monocytes Absolute 0.57 0.20 - 1.00 K/mcL LAB HEMETOLOGY METHOD 03/11/2024 6:59 AM [facility] LAB Eosinophils Absolute 0.33 0.00 - 0.50 K/mcL LAB HEMETOLOGY METHOD 03/11/2024 6:59 AM [facility] LAB Basophils Absolute 0.02 0.00 - 0.20 K/mcL LAB HEMETOLOGY METHOD 03/11/2024 6:59 AM [facility] LAB Immature Granulocytes Absolute 0.01 0.00 - 0.03 K/mcL LAB HEMETOLOGY METHOD 03/11/2024 6:59 AM [facility] LAB Blood Venous blood specimen / Unknown 03/11/2024 4:55 AM EST 03/11/2024 6:08 AM EST us Jeramie Schwartz MD LAB BLOOD ORDERABLES Final Resul t [facility]) [facility] LAB [address] [place] [address], documented in this encounter Visit Diagnoses Diagnosis 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 unspecified duration, sequela (CMS/HCC) documented in this encounter Care Teams Sales Representative Metals Relationship Specialty Start Date End Date Jeramie Schwartz MD [address] [place] [address] Dr [address] [place], [place] PCP - General Internal Medicine 06/02/24 documented as of this encounter
--- OUTSIDE RECORDS SUMMARY | 2024-08-10 13:02 | XMS_ITS | Encounter Summary ---
Author Organization [employer] Address [address] [place] [address] Care Team Providers Care Installment Agent Name Role Phone Jeramie Schwartz MD Primary Care Provider [phone] Encounter Details Date Type Department Care Team (Late st Contact Info) Description 04/08/2024 Lab Requisition [facility] - Main Lab 299 [facility] [place] [address] Jeramie Schwartz MD [address] [place] [address] [address] [place], [place] Diffuse traumatic brain injury with loss [...] % LAB HEMETOLOGY METHOD 04/08/2024 9:53 AM [facility] LAB Bands % 1.0 % LAB HEMETOLOGY METHOD 04/08/2024 9:53 AM [facility] LAB Lymphocytes % 34.0 % LAB HEMETOLOGY METHOD 04/08/2024 9:53 AM [facility] LAB Monocytes % 15.0 % LAB HEMETOLOGY METHOD 04/08/2024 9:53 AM [facility] LAB Eosinophils % 16.0 % LAB HEMETOLOGY METHOD 04/08/2024 9:53 AM [facility] LAB Basophils % 1.0 % LAB HEMETOLOGY METHOD 04/08/2024 9:53 AM [facility] LAB Neutrophils Absolute Manual 0.88(L) 1.50 - 7.00 K/mcL LAB HEMETOLOGY METHOD 04/08/2024 9:53 AM [facility] LAB Bands Absolute Manual 0.03(H) 0.00 - 0.00 K/mcL LAB HEMETOLOGY METHOD 04/08/2024 9:53 AM [facility] LAB Lymphocytes Absolute 0.88(L) 1.00 - 5.00 K/mcL LAB HEMETOLOGY METHOD 04/08/2024 9:53 AM [facility] LAB Monocytes Absolute Manual 0.39 0.20 - 1.00 K/mcL LAB HEMETOLOGY METHOD 04/08/2024 9:53 AM [facility] LAB Eosinophils Absolute Manual 0.42 0.00 - 0.50 K/mcL LAB HEMETOLOGY METHOD 04/08/2024 9:53 AM [facility] LAB Basophils Absolute Manual 0.03 0.00 - 0.20 K/mcL LAB HEMETOLOGY METHOD 04/08/2024 9:53 AM [facility] LAB Rbc Morphology Present( A) Consistent with indices, Normal for LAB HEMETOLOGY METHOD 04/08/2024 9:53 AM [facility] LAB Platelet Morphology - WAM See Note(A) Normal LAB HEMETOLOGY METHOD 04/08/2024 9:53 AM [facility] LAB Comment:PLT: Normal Ovalocytes Present 11 - 15%(A) (none) LAB HEMETOLOGY METHOD 04/08/2024 9:53 AM [facility] LAB Blood Venous blood specimen / Unknown 04/08/2024 6:31 AM EST 04/08/2024 8:43 AM EST us Jeramie Schwartz MD LAB BLOOD ORDERABLES Final Resul t [facility] LAB [address] [place] [address], [place] [phone] * Lavender tube (04/08/2024 6:31 AM EST) Extra Tube Hold for add-ons. 04/08/2024 10:01 AM [facility] LAB Comment:Auto resulted. Blood Venous blood specimen / Unknown 04/08/2024 6:31 AM EST 04/08/2024 8:43 AM EST us Jeramie Schwartz MD LAB BLOOD ORDERABLES Final Resul t [facility] LAB [address] [place] [address], [place] [phone] * (ABNORMAL) CBC auto differential (04/08/2024 6:31 AM EST) WBC 2.6(L) 4.8 - 10.8 K/mcL LAB HEMETOLOGY METHOD 04/08/2024 9:53 AM [facility] LAB RBC 3.80(L) 4.50 - 5.50 M/mcL LAB HEMETOLOGY METHOD 04/08/2024 9:53 AM [facility] LAB Hemoglobin 9.6(L) 13.5 - 17.5 g/dL LAB HEMETOLOGY METHOD 04/08/2024 9:53 AM [facility] LAB Hematocrit 31.5(L) 42.0 - 54.0 % LAB HEMETOLOGY METHOD 04/08/2024 9:53 AM [facility] LAB MCV 83.6 79.0 - 98.0 FL LAB HEMETOLOGY METHOD 04/08/2024 9:53 AM [facility] LAB MCH 25.5(L) 27.0 - 32.0 pcg LAB HEMETOLOGY METHOD 04/08/2024 9:53 AM [facility] LAB MCHC 30.5(L) 32.0 - 37.0 g/dL LAB HEMETOLOGY METHOD 04/08/2024 9:53 AM [facility] LAB RDW 16.3(H) 11.0 - 15.0 % LAB HEMETOLOGY METHOD 04/08/2024 9:53 AM [facility] LAB Platelets 338 130 - 400 K/mcL LAB HEMETOLOGY METHOD 04/08/2024 9:53 AM [facility] LAB MPV 11.9(H) 7.0 - 11.0 FL LAB HEMETOLOGY METHOD 04/08/2024 9:53 AM [facility] LAB NRBC 0.0 <1.0 % LAB HEMETOLOGY METHOD 04/08/2024 9:53 AM [facility] LAB NRBC Absolute 0.00 <0.10 K/mcL LAB HEMETOLOGY METHOD 04/08/2024 9:53 AM [facility] LAB Blood Venous blood specimen / Unknown 04/08/2024 6:31 AM EST 04/08/2024 8:43 AM EST us Jeramie Schwartz MD LAB BLOOD ORDERABLES Final Resul t [facility] LAB [address] [place] [address], [place] [phone] * Hemoglobin A1c (04/08/2024 6:31 AM EST) Hemoglobin A1C 4.3 <6.5 % LAB CHEMISTRY METHOD 04/08/2024 12:[address] [facility] LAB Mean Bld Glu Estim. 77 mg/dL LAB CHEMISTRY METHOD 04/08/2024 12:[address] [facility] LAB Blood Venous blood specimen / Unknown 04/08/2024 6:31 AM EST 04/08/2024 8:43 AM EST us Jeramie Schwartz MD LAB BLOOD ORDERABLES Final Resul t Performing Organization Address City/[facility]/ZIP Co de Phone Number [facility] [address] [place] [address], [place] [phone] documented in this encounter Visit Diagnoses Diagnosis 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 unspecified duration, sequela (CMS/HCC) documented in this encounter Care Teams Installment Agent Relationship Specialty Start Date End Date Jeramie Schwartz MD [address] [place] [address] [address] [place] [address] PCP - General Internal Medicine 06/02/24 documented as of this encounter
--- OUTSIDE RECORDS SUMMARY | 2024-08-10 13:03 | XMS_ITS | Encounter Summary ---
Author Organization [employer] Address [address] [place] [address] Care Team Providers Care Rail Grinder Name Role Phone Jeramie Schwartz MD Primary Care Provider [phone] Encounter Details Date Type Department Care Team (Late st Contact Info) Description 05/06/2024 Lab Requisition [facility] Lab [address] [place] [address] Jeramie Schwartz MD [address] [place] [address] [address] [place], [place] Diffuse traumatic brain injury with loss [...] AM EST) WBC 3.2(L) 4.8 - 10.8 K/[facility] LAB HEMETOLOGY METHOD 05/06/2024 10:51 AM EST [facility] LAB RBC 4.40(L) 4.50 - 5.50 M/[facility] LAB HEMETOLOGY METHOD 05/06/2024 10:51 AM [facility] LAB Hemoglobin 11.0(L) 13.5 - 17.5 g/dL LAB HEMETOLOGY METHOD 05/06/2024 10:51 AM [facility] LAB Hematocrit 35.7(L) 42.0 - 54.0 % LAB HEMETOLOGY METHOD 05/06/2024 10:51 AM [facility] LAB MCV 81.7 79.0 - 98.0 FL LAB HEMETOLOGY METHOD 05/06/2024 10:51 AM [facility] LAB MCH 25.2(L) 27.0 - 32.0 pcg LAB HEMETOLOGY METHOD 05/06/2024 10:51 AM [facility] LAB MCHC 30.8(L) 32.0 - 37.0 g/dL LAB HEMETOLOGY METHOD 05/06/2024 10:51 AM [facility] LAB RDW 17.8(H) 11.0 - 15.0 % LAB HEMETOLOGY METHOD 05/06/2024 10:51 AM [facility] LAB Platelets 333 130 - 400 K/mcL LAB HEMETOLOGY METHOD 05/06/2024 10:51 AM [facility] LAB MPV 10.1 7.0 - 11.0 FL LAB HEMETOLOGY METHOD 05/06/2024 10:51 AM [facility] LAB NRBC 0.0 <1.0 % LAB HEMETOLOGY METHOD 05/06/2024 10:51 AM [facility] LAB NRBC Absolute 0.00 <0.10 K/mcL LAB HEMETOLOGY METHOD 05/06/2024 10:51 AM [facility] LAB Neutrophils Relative 40.9 % LAB HEMETOLOGY METHOD 05/06/2024 10:51 AM [facility] LAB Lymphocytes Relative 35.1 % LAB HEMETOLOGY METHOD 05/06/2024 10:51 AM EST [facility] LAB Monocytes Relative 13.9 % LAB HEMETOLOGY METHOD 05/06/2024 10:51 AM [facility] LAB Eosinophils Relative 9.2 % LAB HEMETOLOGY METHOD 05/06/2024 10:51 AM [facility] LAB Basophils Relative 0.6 % LAB HEMETOLOGY METHOD 05/06/2024 10:51 AM [facility] LAB Immature Granulocytes Relative 0.3 % LAB HEMETOLOGY METHOD 05/06/2024 10:51 AM [facility] LAB Neutrophils Absolute 1.29(L) 1.50 - 7.00 K/mcL LAB HEMETOLOGY METHOD 05/06/2024 10:51 AM [facility] LAB Lymphocytes Absolute 1.11 1.00 - 5.00 K/mcL LAB HEMETOLOGY METHOD 05/06/2024 10:51 AM [facility] LAB Monocytes Absolute 0.44 0.20 - 1.00 K/mcL LAB HEMETOLOGY METHOD 05/06/2024 10:51 AM [facility] LAB Eosinophils Absolute 0.29 0.00 - 0.50 K/mcL LAB HEMETOLOGY METHOD 05/06/2024 10:51 AM [facility] LAB Basophils Absolute 0.02 0.00 - 0.20 K/mcL LAB HEMETOLOGY METHOD 05/06/2024 10:51 AM [facility] LAB Immature Granulocytes Absolute 0.01 0.00 - 0.03 K/mcL LAB HEMETOLOGY METHOD 05/06/2024 10:51 AM [facility] LAB Blood Venous blood specimen / Unknown 05/06/2024 9:05 AM EST 05/06/2024 10:16 AM EST us Jeramie Schwartz MD LAB BLOOD ORDERABLES Final Resul t [facility] LAB [address] [place] [address], [place] [phone] documented in this encounter Visit Diagnoses Diagnosis 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 unspecified duration, sequela (CMS/HCC) documented in this encounter Care Teams Rail Grinder Relationship Specialty Start Date End Date Jeramie Schwartz MD [address] [place] [address] Dr [address] [place], [place] PCP - General Internal Medicine 06/02/24 documented as of this encounter
== END 2024-08-10 10:54 | disposition home or self-care (01) ==
LOC: HO.XRAY 10:53
PROVIDERS: Visit Provider Nurse Practitioner Family
DX: K21.9 Gastro-esophageal reflux disease without esophagitis (principal)
CPT/HCPCS: 74240

== ENCOUNTER → 2024-08-10 10:55 | Outpatient (BNV) | payer MEDICARE, MEDICAID, SELFPAY | PROVIDERS: Visit Provider Radiology Diagnostic Radiology | DX: K22.89 Other specified disease of esophagus (principal); Z87.19 Personal history of other diseases of the digestive system | CPT/HCPCS: 74240 ==

== ENCOUNTER 2024-09-11 14:47 | Outpatient (REF) | payer MEDICARE, MEDICAID, SELFPAY ==
--- NOTE | ~2024-09-11 | US_ITS ---
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 COMPARISON: 01/20/2024, left lower extremity. No prior right lower extremity. TECHNIQUE: Color-flow triplex imaging with spectral analysis and compression Doppler were performed on the right lower extremity. FINDINGS: Respiratory variation, normal compression and augmented flow are noted throughout the right lower extremity. The visualized common femoral vein, superficial femoral vein, profunda femoral vein, popliteal vein and midcalf peroneal and posterior tibial venous segments show no evidence of deep venous thrombosis. There is no Camara's cyst. US/US venous duplex LE RT IMPRESSION: No evidence of deep venous thrombosis involving the right lower extremity. Electronically signed by: Lenny Esquivel MD 09/11/2024 03:38 PM EDT
--- OUTSIDE RECORDS SUMMARY | 2024-09-11 14:49 | XMS_ITS | Encounter Summary ---
Author Organization [employer] Address [address] [place] [address] Care Team Providers Care Spindle Tester Name Role Phone Jeramie Schwartz MD Primary Care Provider [phone] Encounter Details Date Type Department Care Team (Late st Contact Info) Description 07/27/2024 Lab Requisition [facility] Lab [address] [place] [address] Jeramie Schwartz MD [address] [place] [address] [address] [place], [place] Benign prostatic hyperplasia without lower urinary [...] LAB CHEMISTRY METHOD 07/27/2024 5:44 AM EDT [facility] LAB eGFR 80 >=60 mL/min/1. 73m2 LAB CHEMISTRY METHOD 07/27/2024 5:44 AM EDT [facility] Comment:Calculation based on the??Chronic Kidney Disease Epidemiology Collaboration (CKD-EPI) equation refit??without adjustment for race. Blood Venous blood specimen / Unknown 07/27/2024 4:44 AM EDT 07/27/2024 5:27 AM EDT us Jeramie Schwartz MD LAB BLOOD ORDERABLES Final Resul t Performing Organization Address [facility] Co de Phone Number [facility] LAB [address] [place] [address], [place] [phone] * BUN (07/27/2024 4:44 AM EDT) BUN 18 5 - 25 mg/dL LAB CHEMISTRY METHOD 07/27/2024 5:44 AM EDT [facility] Blood Venous blood specimen / Unknown 07/27/2024 4:44 AM EDT 07/27/2024 5:27 AM EDT us Jeramie Schwartz MD LAB BLOOD ORDERABLES Final Resul t Performing Organization Address [facility] de Phone Number [facility] LAB [address] [place] [address], [place] [phone] documented in this encounter Visit Diagnoses Diagnosis Benign prostatic hyperplasia without lower urinary tract symptoms documented in this encounter Care Teams Spindle Tester Relationship Specialty Start Date End Date Jeramie Schwartz MD [address] [place] PCP - General Internal Medicine 06/02/24 documented as of this encounter
--- OUTSIDE RECORDS SUMMARY | 2024-09-11 14:49 | XMS_ITS | Encounter Summary ---
Author Organization [facility] Address [address] [place] [address] Care Team Providers Care Quality Assurance Representative Name Role Phone Jeramie Schwartz MD Primary Care Provider [phone] Encounter Details Date Type Department Care Team (Late st Contact Info) Description 09/11/2024 Lab Requisition [facility] Lab [address] [facility] [address] Jeramie Schwartz MD [address] [place] [address] Dr [address] [place], [place] Other correction (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 Social History Tobacco Use Types Packs/Day Years Used Date Smoking Tobacco: Never Assessed Sex and Gender Information Value Date Recorded Sex Assigned at Not on file Legal Sex Male 8:09 PM EST Gender Identity Not on file Sexual Orientation Not on file documented as of this encounter Plan of Treatment Pending Results Name Type Priority Associated Diagnoses Date /Time Levetiracetam level Lab Routine 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
--- OUTSIDE RECORDS SUMMARY | 2024-09-11 14:49 | XMS_ITS | Encounter Summary ---
Author Organization [employer] Address [address] [place] [address] Care Team Providers Care Policy And Planning Manager Name Role Phone Jeramie Schwartz MD Primary Care Provider [phone] Encounter Details Date Type Department Care Team (Late st Contact Info) Description 03/11/[address] [facility] Lab [address] [place] [address] Jeramie Schwartz MD [address] [place] [address] [address] [place], [place] 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 unspecified duration, sequela (CMS/HCC V24) Social History Tobacco Use Types Packs/Day Years [...] AM EST) WBC 3.2(L) 4.8 - 10.8 K/[facility] LAB HEMETOLOGY METHOD 03/11/2024 6:59 AM EST [facility] RBC 4.10(L) 4.50 - 5.50 M/[facility] LAB HEMETOLOGY METHOD 03/11/2024 6:59 AM [facility] LAB Hemoglobin 10.5(L) 13.5 - 17.5 g/dL LAB HEMETOLOGY METHOD 03/11/2024 6:59 AM [facility] LAB Hematocrit 34.8(L) 42.0 - 54.0 % LAB HEMETOLOGY METHOD 03/11/2024 6:59 AM [facility] LAB MCV 85.7 79.0 - 98.0 FL LAB HEMETOLOGY METHOD 03/11/2024 6:59 AM [facility] LAB MCH 25.9(L) 27.0 - 32.0 pcg LAB HEMETOLOGY METHOD 03/11/2024 6:59 AM [facility] LAB MCHC 30.2(L) 32.0 - 37.0 g/dL LAB HEMETOLOGY METHOD 03/11/2024 6:59 AM [facility] LAB RDW 16.6(H) 11.0 - 15.0 % LAB HEMETOLOGY METHOD 03/11/2024 6:59 AM [facility] LAB Platelets 287 130 - 400 K/[facility] LAB HEMETOLOGY METHOD 03/11/2024 6:59 AM [facility] LAB MPV 11.1(H) 7.0 - 11.0 FL LAB HEMETOLOGY METHOD 03/11/2024 6:59 AM [facility] LAB NRBC 0.0 <1.0 % LAB HEMETOLOGY METHOD 03/11/2024 6:59 AM [facility] LAB NRBC Absolute 0.00 <0.10 K/mcL LAB HEMETOLOGY METHOD 03/11/2024 6:59 AM [facility] LAB Neutrophils Relative 38.2 % LAB HEMETOLOGY METHOD 03/11/2024 6:59 AM [facility] LAB Lymphocytes Relative 32.8 % LAB HEMETOLOGY METHOD 03/11/2024 6:59 AM [facility] Monocytes Relative 17.8 % LAB HEMETOLOGY METHOD 03/11/2024 6:59 AM [facility] Eosinophils Relative 10.3 % LAB HEMETOLOGY METHOD 03/11/2024 6:59 AM [facility] LAB Basophils Relative 0.6 % LAB HEMETOLOGY METHOD 03/11/2024 6:59 AM [facility] LAB Immature Granulocytes Relative 0.3 % LAB HEMETOLOGY METHOD 03/11/2024 6:59 AM [facility] LAB Neutrophils Absolute 1.22(L) 1.50 - 7.00 K/mcL LAB HEMETOLOGY METHOD 03/11/2024 6:59 AM [facility] LAB Lymphocytes Absolute 1.05 1.00 - 5.00 K/mcL LAB HEMETOLOGY METHOD 03/11/2024 6:59 AM [facility] LAB Monocytes Absolute 0.57 0.20 - 1.00 K/mcL LAB HEMETOLOGY METHOD 03/11/2024 6:59 AM [facility] LAB Eosinophils Absolute 0.33 0.00 - 0.50 K/mcL LAB HEMETOLOGY METHOD 03/11/2024 6:59 AM [facility] LAB Basophils Absolute 0.02 0.00 - 0.20 K/mcL LAB HEMETOLOGY METHOD 03/11/2024 6:59 AM [facility] LAB Immature Granulocytes Absolute 0.01 0.00 - 0.03 K/mcL LAB HEMETOLOGY METHOD 03/11/2024 6:59 AM [facility] LAB Blood Venous blood specimen / Unknown 03/11/2024 4:55 AM EST 03/11/2024 6:08 AM EST us Jeramie Schwartz MD LAB BLOOD ORDERABLES Final Resul t [facility] LAB [address] [place] [address], documented in this encounter Visit Diagnoses Diagnosis 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 unspecified duration, sequela (CMS/HCC V24) documented in this encounter Care Teams Policy And Planning Manager Relationship Specialty Start Date End Date Jeramie Schwartz MD [address] [place] [address] Dr [address] [place], [place] PCP - General Internal Medicine 06/02/24 documented as of this encounter
--- OUTSIDE RECORDS SUMMARY | 2024-09-11 14:49 | XMS_ITS | Encounter Summary ---
Author Organization [id number] Address [address] [place] [address] Care Team Providers Care Account Executive Software Sales Name Role Phone Jeramie Schwartz MD Primary Care Provider [phone] Encounter Details Date Type Department Care Team (Latest Contact Info) Description 07/07/2024 Lab Requisition [facility] - Main Lab [address] [facility] [place] [address] Jeramie Schwartz MD [address] [place] [address] [address] [place], [place] 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 unspecified duration, sequela (CMS/HCC V24); Acute embolism and thrombosis of unspecified deep veins of right lower extremity (CMS/HCC V24, CMS/HCC V28); Hyperlipidemia, unspecified; Vitamin D deficiency, unspecified; Type 2 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, left eye (CMS/HCC V24, CMS/HCC V28) Social History Tobacco Use Types Packs/Day Years [...] diabetic retinopathy with macular edema, left eye ([facility]) HEMOGLOBIN A1C Routine 07/07/2024 6:53 AM EST 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 unspecified duration, sequela (CMS/HCC) Acute embolism and thrombosis of unspecified deep veins of right lower extremity (CMS/HCC) Hyperlipidemia, unspecified Vitamin D deficiency, unspecified Type 2 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, left eye ([facility]) documented in this encounter Results * Hemoglobin A1c (07/07/2024 6:53 AM EST) Hemoglobin A1C 5.4 <6.5 % LAB CHEMISTRY METHOD 07/07/2024 2:30 PM EST [facility] LAB Mean Bld Glu Estim. 108 mg/dL LAB CHEMISTRY METHOD 07/07/2024 2:30 PM EST [facility] Blood Venous blood specimen / Unknown 07/07/2024 6:53 AM EST 07/07/2024 8:36 AM EST us Jeramie Schwartz MD LAB BLOOD ORDERABLES Final Resul t [facility] LAB [address] [place] [address], * (ABNORMAL) CBC auto differential (07/07/2024 6:53 AM EST) WBC 4.7(L) 4.8 - 10.8 K/[facility] LAB HEMETOLOGY METHOD 07/07/2024 9:44 AM EST [facility] LAB RBC 4.00(L) 4.50 - 5.50 M/mcL LAB HEMETOLOGY METHOD 07/07/2024 9:44 AM EST [facility] LAB Hemoglobin 10.4(L) 13.5 - 17.5 g/dL LAB HEMETOLOGY METHOD 07/07/2024 9:44 AM [facility] LAB Hematocrit 33.5(L) 42.0 - 54.0 % LAB HEMETOLOGY METHOD 07/07/2024 9:44 AM [facility] LAB MCV 84.2 79.0 - 98.0 FL LAB HEMETOLOGY METHOD 07/07/2024 9:44 AM [facility] LAB MCH 26.1(L) 27.0 - 32.0 pcg LAB HEMETOLOGY METHOD 07/07/2024 9:44 AM [facility] LAB MCHC 31.0(L) 32.0 - 37.0 g/dL LAB HEMETOLOGY METHOD 07/07/2024 9:44 AM [facility] LAB RDW 19.0(H) 11.0 - 15.0 % LAB HEMETOLOGY METHOD 07/07/2024 9:44 AM [facility] LAB Platelets 275 130 - 400 K/mcL LAB HEMETOLOGY METHOD 07/07/2024 9:44 AM [facility] LAB MPV 10.9 7.0 - 11.0 FL LAB HEMETOLOGY METHOD 07/07/2024 9:44 AM [facility] LAB NRBC 0.0 <1.0 % LAB HEMETOLOGY METHOD 07/07/2024 9:44 AM [facility] LAB NRBC Absolute 0.00 <0.10 K/mcL LAB HEMETOLOGY METHOD 07/07/2024 9:44 AM [facility] Neutrophils Relative 65.9 % LAB HEMETOLOGY METHOD 07/07/2024 9:44 AM [facility] Lymphocytes Relative 15.7 % LAB HEMETOLOGY METHOD 07/07/2024 9:44 AM [facility] Monocytes Relative 12.9 % LAB HEMETOLOGY METHOD 07/07/2024 9:44 AM [facility] Eosinophils Relative 4.5 % LAB HEMETOLOGY METHOD 07/07/2024 9:44 AM [facility] Basophils Relative 0.4 % LAB HEMETOLOGY METHOD 07/07/2024 9:44 AM [facility] LAB Immature Granulocytes Relative 0.6 % LAB HEMETOLOGY METHOD 07/07/2024 9:44 AM [facility] LAB Neutrophils Absolute 3.06 1.50 - 7.00 K/mcL LAB HEMETOLOGY METHOD 07/07/2024 9:44 AM [facility] LAB Lymphocytes Absolute 0.73(L) 1.00 - 5.00 K/mcL LAB HEMETOLOGY METHOD 07/07/2024 9:44 AM [facility] LAB Monocytes Absolute 0.60 0.20 - 1.00 K/mcL LAB HEMETOLOGY METHOD 07/07/2024 9:44 AM EST [facility] LAB Eosinophils Absolute 0.21 0.00 - 0.50 K/mcL LAB HEMETOLOGY METHOD 07/07/2024 9:44 AM [facility] LAB Basophils Absolute 0.02 0.00 - 0.20 K/mcL LAB HEMETOLOGY METHOD 07/07/2024 9:44 AM [facility] LAB Immature Granulocytes Absolute 0.03 0.00 - 0.03 K/mcL LAB HEMETOLOGY METHOD 07/07/2024 9:44 AM [facility] LAB Blood Venous blood specimen / Unknown 07/07/2024 6:53 AM EST 07/07/2024 8:36 AM EST us Jeramie Schwartz MD LAB BLOOD ORDERABLES Final Resul t [facility] [address] [place] [address], documented in this encounter Visit Diagnoses Diagnosis 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 unspecified duration, sequela ([facility] V24) Acute embolism and thrombosis of unspecified deep veins of right lower extremity ([facility] V24, [facility] V28) Hyperlipidemia, unspecified Vitamin D deficiency, unspecified Type 2 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, left eye ([facility] V24, [facility] V28) documented in this encounter Care Teams Account Executive Software Sales Relationship Specialty Start Date End Date Jeramie Schwartz MD [address] [place] [address] Dr [address] [place] PCP - General Internal Medicine 06/02/24 documented as of this encounter
--- OUTSIDE RECORDS SUMMARY | 2024-09-11 14:49 | XMS_ITS | Encounter Summary ---
Author Organization [employer] Address [address] [place] [address] Care Team Providers Care Health And Safety Consultant Name Role Phone Jeramie Schwartz MD Primary Care Provider [phone] Encounter Details Date Type Department Care Team (Late st Contact Info) Description 04/08/2024 Lab Requisition [facility] - Main Lab [address] [facility] [place] [address] Jeramie Schwartz MD [address] [place] [address] [address] [place], [place] Diffuse traumatic brain injury with loss [...] % LAB HEMETOLOGY METHOD 04/08/2024 9:53 AM [facility] Bands % 1.0 % LAB HEMETOLOGY METHOD 04/08/2024 9:53 AM [facility] LAB Lymphocytes % 34.0 % LAB HEMETOLOGY METHOD 04/08/2024 9:53 AM [facility] Monocytes % 15.0 % LAB HEMETOLOGY METHOD 04/08/2024 9:53 AM [facility] Eosinophils % 16.0 % LAB HEMETOLOGY METHOD 04/08/2024 9:53 AM [facility] Basophils % 1.0 % LAB HEMETOLOGY METHOD 04/08/2024 9:53 AM [facility] LAB Neutrophils Absolute Manual 0.88(L) 1.50 - 7.00 K/mcL LAB HEMETOLOGY METHOD 04/08/2024 9:53 AM [facility] LAB Bands Absolute Manual 0.03(H) 0.00 - 0.00 K/mcL LAB HEMETOLOGY METHOD 04/08/2024 9:53 AM [facility] LAB Lymphocytes Absolute 0.88(L) 1.00 - 5.00 K/mcL LAB HEMETOLOGY METHOD 04/08/2024 9:53 AM [facility] LAB Monocytes Absolute Manual 0.39 0.20 - 1.00 K/mcL LAB HEMETOLOGY METHOD 04/08/2024 9:53 AM [facility] LAB Eosinophils Absolute Manual 0.42 0.00 - 0.50 K/mcL LAB HEMETOLOGY METHOD 04/08/2024 9:53 AM [facility] LAB Basophils Absolute Manual 0.03 0.00 - 0.20 K/mcL LAB HEMETOLOGY METHOD 04/08/2024 9:53 AM [facility] LAB Rbc Morphology Present( A) Consistent with indices, Normal for [place] LAB HEMETOLOGY METHOD 04/08/2024 9:53 AM [facility] LAB Platelet Morphology - WAM See Note(A) Normal LAB HEMETOLOGY METHOD 04/08/2024 9:53 AM [facility] LAB Comment:PLT: Normal Ovalocytes Present 11 - 15%(A) (none) LAB HEMETOLOGY METHOD 04/08/2024 9:53 AM [facility] LAB Blood Venous blood specimen / Unknown 04/08/2024 6:31 AM EST 04/08/2024 8:43 AM EST us Jeramie Schwartz MD LAB BLOOD ORDERABLES Final Resul t Performing Organization Address City/Va Hospital/ZIP Co de Phone Number [facility] LAB [address] [place] [address], [place] [phone] * Lavender tube (04/08/2024 6:31 AM EST) Extra Tube Hold for add-ons. 04/08/2024 10:01 AM [facility] LAB Comment:Auto resulted. Blood Venous blood specimen / Unknown 04/08/2024 6:31 AM EST 04/08/2024 8:43 AM EST us Jeramie Schwartz MD LAB BLOOD ORDERABLES Final Resul t [facility] [address] [place] [address], [place] [phone] * (ABNORMAL) CBC auto differential (04/08/2024 6:31 AM EST) WBC 2.6(L) 4.8 - 10.8 K/mcL LAB HEMETOLOGY METHOD 04/08/2024 9:53 AM [facility] RBC 3.80(L) 4.50 - 5.50 M/mcL LAB HEMETOLOGY METHOD 04/08/2024 9:53 AM [facility] Hemoglobin 9.6(L) 13.5 - 17.5 g/dL LAB HEMETOLOGY METHOD 04/08/2024 9:53 AM [facility] LAB Hematocrit 31.5(L) 42.0 - 54.0 % LAB HEMETOLOGY METHOD 04/08/2024 9:53 AM [facility] LAB MCV 83.6 79.0 - 98.0 FL LAB HEMETOLOGY METHOD 04/08/2024 9:53 AM [facility] LAB MCH 25.5(L) 27.0 - 32.0 pcg LAB HEMETOLOGY METHOD 04/08/2024 9:53 AM [facility] LAB MCHC 30.5(L) 32.0 - 37.0 g/dL LAB HEMETOLOGY METHOD 04/08/2024 9:53 AM [facility] LAB RDW 16.3(H) 11.0 - 15.0 % LAB HEMETOLOGY METHOD 04/08/2024 9:53 AM [facility] LAB Platelets 338 130 - 400 K/mcL LAB HEMETOLOGY METHOD 04/08/2024 9:53 AM [facility] LAB MPV 11.9(H) 7.0 - 11.0 FL LAB HEMETOLOGY METHOD 04/08/2024 9:53 AM [facility] NRBC 0.0 <1.0 % LAB HEMETOLOGY METHOD 04/08/2024 9:53 AM [facility] NRBC Absolute 0.00 <0.10 K/mcL LAB HEMETOLOGY METHOD 04/08/2024 9:53 AM [facility] Blood Venous blood specimen / Unknown 04/08/2024 6:31 AM EST 04/08/2024 8:43 AM EST us Jeramie Schwartz MD LAB BLOOD ORDERABLES Final Resul t Performing Organization Address [facility] Hospital/ZIP Co de Phone Number [facility] [address] [place] [address], [place] [phone] * Hemoglobin A1c (04/08/2024 6:31 AM EST) [...] ORDERABLES Final Resul t Performing Organization Address City/[facility] Hospital/ZIP Co de Phone Number [facility] [address] [place] [address], [place] [phone] documented in this encounter Visit Diagnoses Diagnosis 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 unspecified duration, sequela (CMS/HCC V24) documented in this encounter Care Teams Health And Safety Consultant Relationship Specialty Start Date End Date Jeramie Schwartz MD [address] [place] [address] [address] [place] PCP - General Internal Medicine 06/02/24 documented as of this encounter
--- OUTSIDE RECORDS SUMMARY | 2024-09-11 14:49 | XMS_ITS | Encounter Summary ---
Author Organization [employer] Address [address] [place] [address] Care Team Providers Care Livestock Speculator Name Role Phone Jeramie Schwartz MD Primary Care Provider [phone] Encounter Details Date Type Department Care Team (Late st Contact Info) Description 08/12/2024 Lab Requisition [facility] - Main Lab 299 [facility] [place] [address] Jeramie Schwartz MD [address] [place] [address] [address] [place], [place] 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 unspecified duration, sequela (CMS/HCC V24); Essential (primary) hypertension; 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 inspector (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 Social History Tobacco Use [...] Diagnosis Comments CBC WITH AUTO DIFFERENTIAL Routine 08/12/2024 5:42 AM EDT 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 unspecified duration, sequela (CMS/HCC) Essential (primary) hypertension 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 inspector (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 CBC AND DIFFERENTIAL Routine 08/12/2024 5:42 AM EDT 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 unspecified duration, sequela (CMS/HCC) Essential (primary) hypertension 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 inspector (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 documented in this encounter Results * (ABNORMAL) CBC auto differential (08/12/2024 5:42 AM EDT) WBC 3.7(L) 4.8 - 10.8 K/mcL LAB HEMETOLOGY METHOD 08/12/2024 6:48 AM [facility] LAB RBC 3.80(L) 4.50 - 5.50 M/mcL LAB HEMETOLOGY METHOD 08/12/2024 6:48 AM [facility] LAB Hemoglobin 9.9(L) 13.5 - 17.5 g/dL LAB HEMETOLOGY METHOD 08/12/2024 6:48 AM [facility] LAB Hematocrit 31.3(L) 42.0 - 54.0 % LAB HEMETOLOGY METHOD 08/12/2024 6:48 AM [facility] LAB MCV 83.0 79.0 - 98.0 FL LAB HEMETOLOGY METHOD 08/12/2024 6:48 AM [facility] LAB MCH 26.3(L) 27.0 - 32.0 pcg LAB HEMETOLOGY METHOD 08/12/2024 6:48 AM [facility] LAB MCHC 31.6(L) 32.0 - 37.0 g/dL LAB HEMETOLOGY METHOD 08/12/2024 6:48 AM [facility] LAB RDW 16.4(H) 11.0 - 15.0 % LAB HEMETOLOGY METHOD 08/12/2024 6:48 AM [facility] LAB Platelets 207 130 - 400 K/mcL LAB HEMETOLOGY METHOD 08/12/2024 6:48 AM [facility] LAB MPV 10.3 7.0 - 11.0 FL LAB HEMETOLOGY METHOD 08/12/2024 6:48 AM [facility] LAB NRBC 0.0 <1.0 % LAB HEMETOLOGY METHOD 08/12/2024 6:48 AM [facility] LAB NRBC Absolute 0.00 <0.10 K/mcL LAB HEMETOLOGY METHOD 08/12/2024 6:48 AM [facility] Neutrophils Relative 41.0 % LAB HEMETOLOGY METHOD 08/12/2024 6:48 AM [facility] Lymphocytes Relative 34.3 % LAB HEMETOLOGY METHOD 08/12/2024 6:48 AM [facility] Monocytes Relative 14.5 % LAB HEMETOLOGY METHOD 08/12/2024 6:48 AM [facility] Eosinophils Relative 8.8 % LAB HEMETOLOGY METHOD 08/12/2024 6:48 AM [facility] Basophils Relative 1.1 % LAB HEMETOLOGY METHOD 08/12/2024 6:48 AM [facility] Immature Granulocytes Relative 0.3 % LAB HEMETOLOGY METHOD 08/12/2024 6:48 AM [facility] LAB Neutrophils Absolute 1.53 1.50 - 7.00 K/mcL LAB HEMETOLOGY METHOD 08/12/2024 6:48 AM [facility] Lymphocytes Absolute 1.28 1.00 - 5.00 K/mcL LAB HEMETOLOGY METHOD 08/12/2024 6:48 AM [facility] Monocytes Absolute 0.54 0.20 - 1.00 K/mcL LAB HEMETOLOGY METHOD 08/12/2024 6:48 AM [facility] LAB Eosinophils Absolute 0.33 0.00 - 0.50 K/mcL LAB HEMETOLOGY METHOD 08/12/2024 6:48 AM [facility] LAB Basophils Absolute 0.04 0.00 - 0.20 K/mcL LAB HEMETOLOGY METHOD 08/12/2024 6:48 AM [facility] LAB Immature Granulocytes Absolute 0.01 0.00 - 0.03 K/mcL LAB HEMETOLOGY METHOD 08/12/2024 6:48 AM [facility] Blood Venous blood specimen / Unknown 08/12/2024 5:42 AM EDT 08/12/2024 6:29 AM EDT us Jeramie Schwartz MD LAB BLOOD ORDERABLES Final Resul t [facility] [address] [place] [address], documented in this encounter Visit Diagnoses Diagnosis 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 unspecified duration, sequela (CMS/HCC V24) Essential (primary) hypertension Unspecified essential hypertension Other care home (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 documented in this encounter Care Teams Livestock Speculator Relationship Specialty Start Date End Date Jeramie Schwartz MD [address] [place], [place] PCP - General Internal Medicine 06/02/24 documented as of this encounter
--- OUTSIDE RECORDS SUMMARY | 2024-09-11 14:49 | XMS_ITS | Encounter Summary ---
Author Organization [facility] Address [address] [place] [address] Care Team Providers Care Early Childhood Specialist Name Role Phone Jeramie Schwartz MD Primary Care Provider [phone] Encounter Details Date Type Department Care Team (Late st Contact Info) Description 09/04/[address] [facility] Lab [address] [place] [id number] Jeramie Schwartz MD [address] [place] [address] [address] [place], [place] Melena Social History Tobacco Use Types Packs/Day Years [...] Procedure Name Priority Date/Time Associated Diagnosis Comments OCCULT BLOOD STOOL, GUAIAC Routine 09/04/2024 10:45 AM EDT Melena documented in this encounter Results * (ABNORMAL) Occult blood stool, guaiac (09/04/2024 10:45 AM EDT) Occult Blood, Stool #1 Positive( A) Negative 09/04/2024 5:13 PM EDT [facility] Stool Rectum structure / Unknown 09/04/2024 10:45 AM EDT 09/04/2024 3:26 PM EDT us Jeramie Schwartz MD LAB BODY FLUIDS AND STOOLS ORDER VELMA Final Result [facility] [address] [place], [place] [address] [phone] documented in this encounter Visit Diagnoses Diagnosis Melena Blood in stool documented in this encounter Care Teams Early Childhood Specialist Relationship Specialty Start Date End Date Jeramie Schwartz MD [address] [place] [address] Dr [address] MARS Chaudhry PCP - General Internal Medicine 06/02/24 documented as of this encounter
--- OUTSIDE RECORDS SUMMARY | 2024-09-11 14:49 | XMS_ITS | Encounter Summary ---
Author Organization [employer] Address [address] [place] [address] Care Team Providers Care Hair Machine Operator Name Role Phone Jeramie Schwartz MD Primary Care Provider [phone] Encounter Details Date Type Department Care Team (Late st Contact Info) Description 05/06/2024 Lab Requisition [facility] Lab [address] [place] [address] Jeramie Schwartz MD [address] [place] [address] [address] [place], [place] Diffuse traumatic brain injury with loss [...] AM EST) WBC 3.2(L) 4.8 - 10.8 K/[facility] LAB HEMETOLOGY METHOD 05/06/2024 10:51 AM EST [facility] RBC 4.40(L) 4.50 - 5.50 M/[facility] LAB HEMETOLOGY METHOD 05/06/2024 10:51 AM [facility] Hemoglobin 11.0(L) 13.5 - 17.5 g/dL LAB HEMETOLOGY METHOD 05/06/2024 10:51 AM [facility] LAB Hematocrit 35.7(L) 42.0 - 54.0 % LAB HEMETOLOGY METHOD 05/06/2024 10:51 AM [facility] LAB MCV 81.7 79.0 - 98.0 FL LAB HEMETOLOGY METHOD 05/06/2024 10:51 AM [facility] LAB MCH 25.2(L) 27.0 - 32.0 pcg LAB HEMETOLOGY METHOD 05/06/2024 10:51 AM [facility] LAB MCHC 30.8(L) 32.0 - 37.0 g/dL LAB HEMETOLOGY METHOD 05/06/2024 10:51 AM [facility] LAB RDW 17.8(H) 11.0 - 15.0 % LAB HEMETOLOGY METHOD 05/06/2024 10:51 AM [facility] LAB Platelets 333 130 - 400 K/[facility] LAB HEMETOLOGY METHOD 05/06/2024 10:51 AM [facility] LAB MPV 10.1 7.0 - 11.0 FL LAB HEMETOLOGY METHOD 05/06/2024 10:51 AM [facility] LAB NRBC 0.0 <1.0 % LAB HEMETOLOGY METHOD 05/06/2024 10:51 AM [facility] LAB NRBC Absolute 0.00 <0.10 K/[facility] LAB HEMETOLOGY METHOD 05/06/2024 10:51 AM [facility] LAB Neutrophils Relative 40.9 % LAB HEMETOLOGY METHOD 05/06/2024 10:51 AM [facility] LAB Lymphocytes Relative 35.1 % LAB HEMETOLOGY METHOD 05/06/2024 10:51 AM [facility] Monocytes Relative 13.9 % LAB HEMETOLOGY METHOD 05/06/2024 10:51 AM [facility] Eosinophils Relative 9.2 % LAB HEMETOLOGY METHOD 05/06/2024 10:51 AM [facility] LAB Basophils Relative 0.6 % LAB HEMETOLOGY METHOD 05/06/2024 10:51 AM [facility] LAB Immature Granulocytes Relative 0.3 % LAB HEMETOLOGY METHOD 05/06/2024 10:51 AM [facility] LAB Neutrophils Absolute 1.29(L) 1.50 - 7.00 K/mcL LAB HEMETOLOGY METHOD 05/06/2024 10:51 AM [facility] LAB Lymphocytes Absolute 1.11 1.00 - 5.00 K/mcL LAB HEMETOLOGY METHOD 05/06/2024 10:51 AM [facility] LAB Monocytes Absolute 0.44 0.20 - 1.00 K/mcL LAB HEMETOLOGY METHOD 05/06/2024 10:51 AM [facility] LAB Eosinophils Absolute 0.29 0.00 - 0.50 K/mcL LAB HEMETOLOGY METHOD 05/06/2024 10:51 AM [facility] LAB Basophils Absolute 0.02 0.00 - 0.20 K/mcL LAB HEMETOLOGY METHOD 05/06/2024 10:51 AM [facility] LAB Immature Granulocytes Absolute 0.01 0.00 - 0.03 K/mcL LAB HEMETOLOGY METHOD 05/06/2024 10:51 AM [facility] LAB Blood Venous blood specimen / Unknown 05/06/2024 9:05 AM EST 05/06/2024 10:16 AM EST us Jeramie Schwartz MD LAB BLOOD ORDERABLES Final Resul t [facility]) [facility] LAB [address] [place] [address], documented in this encounter Visit Diagnoses Diagnosis 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 unspecified duration, sequela (CMS/[facility] V24) documented in this encounter Care Teams Hair Machine Operator Relationship Specialty Start Date End Date Jeramie Schwartz MD [address] [place] [address] [address] [place], [place] PCP - General Internal Medicine 06/02/24 documented as of this encounter
--- OUTSIDE RECORDS SUMMARY | 2024-09-11 14:49 | XMS_ITS | Encounter Summary ---
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, sequela (CMS/HCC V24); Hyperlipidemia, unspecified Social History Tobacco Use Types Packs/Day Years [...] Diagnosis Comments CBC WITH AUTO DIFFERENTIAL Routine 08/26/2024 6:00 AM EDT 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 unspecified duration, sequela (CMS/HCC V24) Hyperlipidemia, unspecified CBC AND DIFFERENTIAL Routine 08/26/2024 6:00 AM EDT 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 unspecified duration, sequela (CMS/HCC V24) Hyperlipidemia, unspecified documented in this encounter Results * (ABNORMAL) CBC auto differential (08/26/2024 6:00 AM EDT) [facility] Signature WBC 3.6(L) 4.8 - 10.8 K/mcL LAB HEMETOLOGY METHOD 08/26/2024 7:31 AM EDT [facility] RBC 3.80(L) 4.50 - 5.50 M/mcL LAB HEMETOLOGY METHOD 08/26/2024 7:31 AM [facility] LAB Hemoglobin 10.1(L) 13.5 - 17.5 g/dL LAB HEMETOLOGY METHOD 08/26/2024 7:31 AM [facility] LAB Hematocrit 32.6(L) 42.0 - 54.0 % LAB HEMETOLOGY METHOD 08/26/2024 7:31 AM [facility] LAB MCV 84.9 79.0 - 98.0 FL LAB HEMETOLOGY METHOD 08/26/2024 7:31 AM [facility] LAB MCH 26.3(L) 27.0 - 32.0 pcg LAB HEMETOLOGY METHOD 08/26/2024 7:31 AM [facility] LAB MCHC 31.0(L) 32.0 - 37.0 g/dL LAB HEMETOLOGY METHOD 08/26/2024 7:31 AM [facility] LAB RDW 16.6(H) 11.0 - 15.0 % LAB HEMETOLOGY METHOD 08/26/2024 7:31 AM [facility] LAB Platelets 265 130 - 400 K/mcL LAB HEMETOLOGY METHOD 08/26/2024 7:31 AM [facility] LAB MPV 12.3(H) 7.0 - 11.0 FL LAB HEMETOLOGY METHOD 08/26/2024 7:31 AM [facility] LAB NRBC 0.0 <1.0 % LAB HEMETOLOGY METHOD 08/26/2024 7:31 AM [facility] LAB NRBC Absolute 0.00 <0.10 K/mcL LAB HEMETOLOGY METHOD 08/26/2024 7:31 AM [facility] LAB Neutrophils Relative 46.9 % LAB HEMETOLOGY METHOD 08/26/2024 7:31 AM [facility] LAB Lymphocytes Relative 26.7 % LAB HEMETOLOGY METHOD 08/26/2024 7:31 AM [facility] LAB Monocytes Relative 18.8 % LAB HEMETOLOGY METHOD 08/26/2024 7:31 AM [facility] LAB Eosinophils Relative 6.7 % LAB HEMETOLOGY METHOD 08/26/2024 7:31 AM [facility] LAB Basophils Relative 0.6 % LAB HEMETOLOGY METHOD 08/26/2024 7:31 AM [facility] LAB Immature Granulocytes Relative 0.3 % LAB HEMETOLOGY METHOD 08/26/2024 7:31 AM [facility] LAB Neutrophils Absolute 1.67 1.50 - 7.00 K/mcL LAB HEMETOLOGY METHOD 08/26/2024 7:31 AM [facility] LAB Lymphocytes Absolute 0.95(L) 1.00 - 5.00 K/mcL LAB HEMETOLOGY METHOD 08/26/2024 7:31 AM [facility] LAB Monocytes Absolute 0.67 0.20 - 1.00 K/mcL LAB HEMETOLOGY METHOD 08/26/2024 7:31 AM [facility] LAB Eosinophils Absolute 0.24 0.00 - 0.50 K/mcL LAB HEMETOLOGY METHOD 08/26/2024 7:31 AM [facility] LAB Basophils Absolute 0.02 0.00 - 0.20 K/mcL LAB HEMETOLOGY METHOD 08/26/2024 7:31 AM [facility] LAB Immature Granulocytes Absolute 0.01 0.00 - 0.03 K/mcL LAB HEMETOLOGY METHOD 08/26/2024 7:31 AM [facility] LAB Blood Venous blood specimen / Unknown 08/26/2024 6:00 AM EDT 08/26/2024 7:09 AM EDT us Jeramie Schwartz MD LAB BLOOD ORDERABLES Final Resul t [facility] ([facility] LAB [address] [place] [address], documented in this encounter Visit Diagnoses Diagnosis 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 unspecified duration, sequela (CMS/HCC V24) Hyperlipidemia, unspecified documented in this encounter Care Teams Expander Machine Operator Relationship Specialty Start Date End Date Jeramie Schwartz MD [address] [place] [address] Dr [address] [place], [place] PCP - General Internal Medicine 06/02/24 documented as of this encounter
--- OUTSIDE RECORDS SUMMARY | 2024-09-11 14:49 | XMS_ITS | Encounter Summary ---
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 Social History Tobacco Use [...] Diagnosis Comments CBC WITH AUTO DIFFERENTIAL Routine 08/19/2024 6:12 AM EDT 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 unspecified duration, sequela (CMS/HCC V24) 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9(L) 42.0 - 54.0 % LAB HEMETOLOGY METHOD 08/19/2024 8:30 AM [facility] LAB MCV 84.1 79.0 - 98.0 FL LAB HEMETOLOGY METHOD 08/19/2024 8:30 AM [facility] LAB MCH 26.2(L) 27.0 - 32.0 pcg LAB HEMETOLOGY METHOD 08/19/2024 8:30 AM [facility] LAB MCHC 31.2(L) 32.0 - 37.0 g/dL LAB HEMETOLOGY METHOD 08/19/2024 8:30 AM [facility] LAB RDW 17.1(H) 11.0 - 15.0 % LAB HEMETOLOGY METHOD 08/19/2024 8:30 AM [facility] LAB Platelets 284 130 - 400 K/mcL LAB HEMETOLOGY METHOD 08/19/2024 8:30 AM [facility] LAB MPV 12.1(H) 7.0 - 11.0 FL LAB HEMETOLOGY METHOD 08/19/2024 8:30 AM [facility] LAB NRBC 0.0 <1.0 % LAB HEMETOLOGY METHOD 08/19/2024 8:30 AM [facility] LAB NRBC Absolute 0.00 <0.10 K/mcL LAB HEMETOLOGY METHOD 08/19/2024 8:30 AM [facility] LAB Neutrophils Relative 52.3 % LAB HEMETOLOGY METHOD 08/19/2024 8:30 AM EDT [facility] LAB Lymphocytes Relative 27.2 % LAB HEMETOLOGY METHOD 08/19/2024 8:30 AM [facility] LAB Monocytes Relative 13.3 % LAB HEMETOLOGY METHOD 08/19/2024 8:30 AM [facility] LAB Eosinophils Relative 6.3 % LAB HEMETOLOGY METHOD 08/19/2024 8:30 AM [facility] LAB Basophils Relative 0.6 % LAB HEMETOLOGY METHOD 08/19/2024 8:30 AM [facility] LAB Immature Granulocytes Relative 0.3 % LAB HEMETOLOGY METHOD 08/19/2024 8:30 AM [facility] LAB Neutrophils Absolute 1.65 1.50 - 7.00 K/mcL LAB HEMETOLOGY METHOD 08/19/2024 8:30 AM [facility] LAB Lymphocytes Absolute 0.86(L) 1.00 - 5.00 K/mcL LAB HEMETOLOGY METHOD 08/19/2024 8:30 AM [facility] LAB Monocytes Absolute 0.42 0.20 - 1.00 K/mcL LAB HEMETOLOGY METHOD 08/19/2024 8:30 AM [facility] LAB Eosinophils Absolute 0.20 0.00 - 0.50 K/mcL LAB HEMETOLOGY METHOD 08/19/2024 8:30 AM [facility] LAB Basophils Absolute 0.02 0.00 - 0.20 K/mcL LAB HEMETOLOGY METHOD 08/19/2024 8:30 AM [facility] LAB Immature Granulocytes Absolute 0.01 0.00 - 0.03 K/mcL LAB HEMETOLOGY METHOD 08/19/2024 8:30 AM [facility] LAB Blood Venous blood specimen / Unknown 08/19/2024 6:12 AM EDT 08/19/2024 7:24 AM EDT Jeramie Schwartz MD LAB BLOOD ORDERABLES Final Resul t [facility] LAB [address] [place] [address], documented in this encounter Visit Diagnoses Diagnosis 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 unspecified duration, sequela (CMS/HCC V24) 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
--- OUTSIDE RECORDS SUMMARY | 2024-09-11 14:49 | XMS_ITS | Encounter Summary ---
Author Organization [employer] Address [address] [place] [address] Care Team Providers Care Phonograph Mechanic Name Role Phone Jeramie Schwartz MD Primary Care Provider [phone] Encounter Details Date Type Department Care Team (Late st Contact Info) Description 03/26/2024 Lab Requisition [facility] Lab [address] [place] [address] Jeramie Schwartz MD [address] [place] [address] [address] [place], [place] Diffuse traumatic brain injury with loss [...] AM EST) WBC 3.0(L) 4.8 - 10.8 K/[facility] LAB HEMETOLOGY METHOD 03/26/2024 7:46 AM EST [facility] LAB RBC 3.80(L) 4.50 - 5.50 M/[facility] LAB HEMETOLOGY METHOD 03/26/2024 7:46 AM [facility] LAB Hemoglobin 9.8(L) 13.5 - 17.5 g/dL LAB HEMETOLOGY METHOD 03/26/2024 7:46 AM [facility] LAB Hematocrit 31.5(L) 42.0 - 54.0 % LAB HEMETOLOGY METHOD 03/26/2024 7:46 AM [facility] LAB MCV 83.8 79.0 - 98.0 FL LAB HEMETOLOGY METHOD 03/26/2024 7:46 AM [facility] LAB MCH 26.1(L) 27.0 - 32.0 pcg LAB HEMETOLOGY METHOD 03/26/2024 7:46 AM [facility] LAB MCHC 31.1(L) 32.0 - 37.0 g/dL LAB HEMETOLOGY METHOD 03/26/2024 7:46 AM [facility] LAB RDW 15.9(H) 11.0 - 15.0 % LAB HEMETOLOGY METHOD 03/26/2024 7:46 AM [facility] LAB Platelets 263 130 - 400 K/[facility] LAB HEMETOLOGY METHOD 03/26/2024 7:46 AM [facility] LAB MPV 9.7 7.0 - 11.0 FL LAB HEMETOLOGY METHOD 03/26/2024 7:46 AM [facility] LAB NRBC 0.0 <1.0 % LAB HEMETOLOGY METHOD 03/26/2024 7:46 AM [facility] LAB NRBC Absolute 0.00 <0.10 K/[facility] LAB HEMETOLOGY METHOD 03/26/2024 7:46 AM [facility] LAB Neutrophils Relative 47.8 % LAB HEMETOLOGY METHOD 03/26/2024 7:46 AM [facility] LAB Lymphocytes Relative 26.7 % LAB HEMETOLOGY METHOD 03/26/2024 7:46 AM [facility] LAB Monocytes Relative 14.9 % LAB HEMETOLOGY METHOD 03/26/2024 7:46 AM [facility] LAB Eosinophils Relative 9.6 % LAB HEMETOLOGY METHOD 03/26/2024 7:46 AM [facility] LAB Basophils Relative 0.7 % LAB HEMETOLOGY METHOD 03/26/2024 7:46 AM [facility] LAB Immature Granulocytes Relative 0.3 % LAB HEMETOLOGY METHOD 03/26/2024 7:46 AM [facility] LAB Neutrophils Absolute 1.45(L) 1.50 - 7.00 K/mcL LAB HEMETOLOGY METHOD 03/26/2024 7:46 AM [facility] LAB Lymphocytes Absolute 0.81(L) 1.00 - 5.00 K/mcL LAB HEMETOLOGY METHOD 03/26/2024 7:46 AM [facility] LAB Monocytes Absolute 0.45 0.20 - 1.00 K/mcL LAB HEMETOLOGY METHOD 03/26/2024 7:46 AM [facility] LAB Eosinophils Absolute 0.29 0.00 - 0.50 K/mcL LAB HEMETOLOGY METHOD 03/26/2024 7:46 AM [facility] LAB Basophils Absolute 0.02 0.00 - 0.20 K/mcL LAB HEMETOLOGY METHOD 03/26/2024 7:46 AM [facility] LAB Immature Granulocytes Absolute 0.01 0.00 - 0.03 K/mcL LAB HEMETOLOGY METHOD 03/26/2024 7:46 AM [facility] LAB Blood Venous blood specimen / Unknown 03/26/2024 6:55 AM EST 03/26/2024 7:35 AM EST us Jeramie Schwartz MD LAB BLOOD ORDERABLES Final Resul t [facility] LAB [address] [place] [address], documented in this encounter Visit Diagnoses Diagnosis 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 unspecified duration, sequela (CMS/HCC V24) documented in this encounter Care Teams Phonograph Mechanic Relationship Specialty Start Date End Date Jeramie Schwartz MD [address] [place] [address] Dr [address] [place], [place] PCP - General Internal Medicine 06/02/24 documented as of this encounter
--- OUTSIDE RECORDS SUMMARY | 2024-09-11 14:49 | XMS_ITS | Encounter Summary ---
Author Organization [employer] Address [address] [place] [address] Care Team Providers Care Big Data Admin Name Role Phone Jeramie Schwartz MD Primary Care Provider [phone] Encounter Details Date Type Department Care Team (Late st Contact Info) Description 09/07/2024 Lab Requisition [facility] - Main Lab 299 [facility] [employer] [address] Jeramie Schwartz MD [address] [place] [address] [address] [place], [place] Other correction (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 Social [...] Procedure Name Priority Date/Time Associated Diagnosis Comments PREGABALIN Routine 09/07/2024 5:25 AM EDT Other correction (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 documented in this encounter Results * Pregabalin (09/07/2024 5:25 AM EDT) Pregabalin 5.1 ug/mL 09/09/2024 11:05 PM EDT [facility] Comment: Therapeutic and toxic ranges have not been established. Expected steady state pregabalin concentrations in patients taking recommended daily dosages: ??up to 10 ug/mL. This test was developed and its performance characteristics determined by [facility]. It has not been cleared or approved by the Food and Drug Administration. 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
--- OUTSIDE RECORDS SUMMARY | 2024-09-11 14:49 | XMS_ITS | Clinical Summary ---
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 09/09/2024 Lab Requisition [facility] Lab [address] [place] [phone] Jeramie Schwartz MD 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 unspecified duration, sequela ([facility] V24) 09/07/2024 Lab Requisition [facility] Lab [address] [place] [phone] Jeramie Schwartz MD Other skilled nursing (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 09/04/2024 Lab Requisition [facility] Lab [address] [place] [phone] Jeramie Schwartz MD Melena 09/04/2024 Lab Requisition [facility] Lab [address] [place] [phone] Jeramie Schwartz MD Vitamin D deficiency, unspecified 09/03/2024 Lab Requisition [facility] Lab [address] [place] [phone] Jeramie Schwartz MD 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 unspecified duration, sequela ([facility] V24); Benign prostatic hyperplasia without lower urinary tract symptoms; Type 2 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, left eye ([facility] V24, [facility] V28); Vitamin D deficiency, unspecified 08/26/2024 Lab Requisition [facility] Lab [address] [place] [phone] Jeramie Schwartz MD 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 unspecified duration, sequela ([facility] V24); Hyperlipidemia, unspecified 08/25/2024 Lab Requisition [facility] Lab [address] [place] [phone] Jeramie Schwartz MD Other skilled nursing (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 08/19/2024 Lab Requisition [facility] Lab [address] [place] [phone] Jeramie Schwartz MD 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 unspecified duration, sequela ([facility] V24); Other skilled nursing (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 08/12/2024 Lab Requisition [facility] Lab [address] [place] [phone] Jeramie Schwartz MD 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 unspecified duration, sequela ([facility] V24); Essential (primary) hypertension; Other skilled nursing (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 07/27/2024 Lab Requisition [facility] Lab [address] [place] [phone] Jeramie Schwartz MD Benign prostatic hyperplasia without lower urinary tract symptoms 07/07/2024 Lab Requisition [facility] Lab [address] [place] [phone] Jeramie Schwartz MD 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 unspecified duration, sequela ([facility] V24); Acute embolism and thrombosis of unspecified deep veins of right lower extremity ([facility] V24, [facility] V28); Hyperlipidemia, unspecified; Vitamin D deficiency, unspecified; Type 2 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, left eye ([facility] V24, [facility] V28) from Last 3 Months Social History Tobacco [...] Screen 05/30/2023 Cholesterol Screening (Lipid Panel) 05/30/2023 Depression Screening 05/30/2023 Falls Risk Assessment 05/30/2023 Hepatitis C Screening 05/30/2023 Medicare Annual Wellness Visit 05/30/2023 Social Influencers of Health Screening 05/30/2023 COVID-19 Vaccine (1 - 2023-2 5 season) 2024 Diabetes: Annual Urine Albumin-Creatinine Ratio (uACR) 07/09/2024 Influenza Vaccine (Season Ended) 2025 Diabetes: Blood Sugar Contro l Test (HGBA1C) 03/06/2025 09/03/2024, 07/07/2024, 04/08/2024 Diabetes: Annual GFR (Glomerular Filtration Rate) 09/03/2025 09/03/2024, 07/27/2024 Hypertension/CHF/CAD Annual BMP Blood Test 09/03/2025 09/03/2024, 07/27/2024 Colorectal Cancer Screening: Stool Based Tests (FOBT/FIT) 09/04/2025 09/04/2024 HIB Vaccines Aged Out No longer eligi [...] age to complete this topic Meningococcal B Vaccine Aged Out No l onger eligible based on patient's age to complete this topic RSV Immunization Patients Under 20 months Aged Out No longer eligible b ased on patient's age to complete this topic Varicella Vaccines Aged Out No longer eligible based on patient's age to complete this topic Procedures Procedure Name Priority Date/Time Associated Diagnosis Comments CBC WITH AUTO DIFFERENTIAL Routine 09/09/2024 6:15 AM EDT 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 unspecified duration, sequela ([facility] V24) CBC AND DIFFERENTIAL Routine 09/09/2024 6:15 AM EDT 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 unspecified duration, sequela ([facility] V24) PREGABALIN Routine 09/07/2024 5:25 AM EDT 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 OCCULT BLOOD STOOL, GUAIAC Routine 09/04/2024 10:45 AM EDT Melena COMPLETE BLOOD COUNT Routine 09/04/2024 7:32 AM EDT Vitamin D deficiency, unspecified CBC WITH AUTO DIFFERENTIAL Routine 09/03/2024 6:28 AM EDT 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 unspecified duration, sequela ([facility] V24) Benign prostatic hyperplasia without lower urinary tract symptoms Type 2 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, left eye (CMS/HCC V24, CMS/HCC V28) Vitamin D deficiency, unspecified VITAMIN D 25 HYDROXY Routine 09/03/2024 6:28 AM EDT 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 unspecified duration, sequela ([facility] V24) Benign prostatic hyperplasia without lower urinary tract symptoms Type 2 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, left eye ([facility] V24, [facility] V28) Vitamin D deficiency, unspecified PROSTATE SPECIFIC ANTIGEN SCREEN Routine 09/03/2024 6:28 AM EDT 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 unspecified duration, sequela (CMS/HCC V24) Benign prostatic hyperplasia without lower urinary tract symptoms Type 2 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, left eye (CMS/HCC V24, CMS/HCC V28) Vitamin D deficiency, unspecified HEMOGLOBIN A1C Routine 09/03/2024 6:28 AM EDT 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 unspecified duration, sequela (CMS/HCC V24) Benign prostatic hyperplasia without lower urinary tract symptoms Type 2 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, left eye (CMS/HCC V24, CMS/HCC V28) Vitamin D deficiency, unspecified CBC AND DIFFERENTIAL Routine 09/03/2024 6:28 AM EDT 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 unspecified duration, sequela (CMS/HCC V24) Benign prostatic hyperplasia without lower urinary tract symptoms Type 2 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, left eye (CMS/HCC V24, CMS/HCC V28) Vitamin D deficiency, unspecified COMPREHENSIVE METABOLIC PANEL Routine 09/03/2024 6:28 AM EDT 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 unspecified duration, sequela (CMS/HCC V24) Benign prostatic hyperplasia without lower urinary tract symptoms Type 2 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, left eye (CMS/HCC V24, CMS/HCC V28) Vitamin D deficiency, unspecified CBC WITH AUTO DIFFERENTIAL Routine 08/26/2024 6:00 AM EDT 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 unspecified duration, sequela (CMS/HCC V24) Hyperlipidemia, unspecified CBC AND DIFFERENTIAL Routine 08/26/2024 6:00 AM EDT 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 unspecified duration, sequela (CMS/HCC V24) Hyperlipidemia, unspecified PREGABALIN Routine 08/25/2024 5:20 AM EDT 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 LEVETIRACETAM LEVEL Routine 08/25/2024 5 :20 AM EDT Other skilled nursing (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 CBC WITH AUTO DIFFERENTIAL Routine 08/19/2024 6:12 AM EDT 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 unspecified duration, sequela (CMS/HCC V24) 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 CBC AND DIFFERENTIAL Routine 08/19/2024 6:12 AM EDT 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 unspecified duration, sequela (CMS/HCC V24) 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 CBC WITH AUTO DIFFERENTIAL Routine 08/12/2024 5:42 AM EDT 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 unspecified duration, sequela (CMS/HCC) Essential (primary) hypertension Other skilled nursing (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 CBC AND DIFFERENTIAL Routine 08/12/2024 5:42 AM EDT 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 unspecified duration, sequela (CMS/HCC) Essential (primary) hypertension Other skilled nursing (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 CREATININE, SERUM Routine 07/27/2024 4:4 4 AM [...] Months Results * (ABNORMAL) CBC auto differential (09/09/2024 6:15 AM EDT) Only the most recent of6 resultswithin the time period is included. WBC 3.8(L) 4.8 - 10.8 K/mcL LAB HEMETOLOGY METHOD 09/09/2024 12:29 PM [facility] RBC 4.20(L) 4.50 - 5.50 M/mcL LAB HEMETOLOGY METHOD 09/09/2024 12:29 PM [facility] Hemoglobin 11.0(L) 13.5 - 17.5 g/dL LAB HEMETOLOGY METHOD 09/09/2024 12:29 PM [facility] Hematocrit 35.2(L) 42.0 - 54.0 % LAB HEMETOLOGY METHOD 09/09/2024 12:29 PM [facility] MCV 84.4 79.0 - 98.0 FL LAB HEMETOLOGY METHOD 09/09/2024 12:29 PM [facility] MCH 26.4(L) 27.0 - 32.0 pcg LAB HEMETOLOGY METHOD 09/09/2024 12:29 PM [facility] MCHC 31.3(L) 32.0 - 37.0 g/dL LAB HEMETOLOGY METHOD 09/09/2024 12:29 PM [facility] RDW 17.3(H) 11.0 - 15.0 % LAB HEMETOLOGY METHOD 09/09/2024 12:29 PM [facility] Platelets 193 130 - 400 K/mcL LAB HEMETOLOGY METHOD 09/09/2024 12:29 PM [facility] MPV 12.4(H) 7.0 - 11.0 FL LAB HEMETOLOGY METHOD 09/09/2024 12:29 PM [facility] NRBC 0.0 <1.0 % LAB HEMETOLOGY METHOD 09/09/2024 12:29 PM [facility] NRBC Absolute 0.00 <0.10 K/mcL LAB HEMETOLOGY METHOD 09/09/2024 12:29 PM [facility] Neutrophils Relative 66.4 % LAB HEMETOLOGY METHOD 09/09/2024 12:29 PM [facility] Lymphocytes Relative 15.9 % LAB HEMETOLOGY METHOD 09/09/2024 12:29 PM [facility] Monocytes Relative 12.7 % LAB HEMETOLOGY METHOD 09/09/2024 12:29 PM [facility] Eosinophils Relative 4.2 % LAB HEMETOLOGY METHOD 09/09/2024 12:29 PM [facility] Basophils Relative 0.5 % LAB HEMETOLOGY METHOD 09/09/2024 12:29 PM [facility] Immature Granulocytes Relative 0.3 % LAB HEMETOLOGY METHOD 09/09/2024 12:29 PM [facility] Neutrophils Absolute 2.51 1.50 - 7.00 K/mcL LAB HEMETOLOGY METHOD 09/09/2024 12:29 PM [facility] Lymphocytes Absolute 0.60(L) 1.00 - 5.00 K/mcL LAB HEMETOLOGY METHOD 09/09/2024 12:29 PM EDT [facility] Monocytes Absolute 0.48 0.20 - 1.00 K/mcL LAB HEMETOLOGY METHOD 09/09/2024 12:29 PM EDT [facility] Eosinophils Absolute 0.16 0.00 - 0.50 K/mcL LAB HEMETOLOGY METHOD 09/09/2024 12:29 PM EDT [facility] Basophils Absolute 0.02 0.00 - 0.20 K/mcL LAB HEMETOLOGY METHOD 09/09/2024 12:29 PM EDT [facility] Immature Granulocytes Absolute 0.01 0.00 - 0.03 K/mcL LAB HEMETOLOGY METHOD 09/09/2024 12:29 PM EDT [facility] Blood Venous blood specimen / Unknown 09/09/2024 6:15 AM EDT 09/09/2024 7:18 AM EDT us Jeramie Schwartz MD LAB BLOOD ORDERABLES Final Resul t [facility] [address] [place] [address], * Pregabalin (09/07/2024 5:25 AM EDT) Only the most recent of2 resultswithin the time period is included. Pregabalin 5.1 ug/mL 09/09/2024 11:05 PM EDT [...] 11:05 PM EDT Performed at: ??01 - [employer] [address] [place] [address] ??[phone] Looping Inspector: Michelle Jimenez [facility], Phone: ??[phone] us Jeramie Schwartz MD LAB BLOOD ORDERABLES Final Resul t Performing Organization Address [facility]/ZIP Co de Phone Number [id number] * (ABNORMAL) Occult blood stool, guaiac (09/04/2024 10:45 AM EDT) [facility] [address] Occult Blood, Stool #1 Positive( A) Negative 09/04/2024 5:13 PM EDT [facility] Stool Rectum structure / Unknown 09/04/2024 10:45 AM EDT 09/04/2024 3:26 PM EDT us Jeramie Schwartz MD LAB BODY FLUIDS AND STOOLS ORDER VELMA Final Result Performing Organization Address [facility]/ZIP Mi de Phone Number [facility] [address] [place] [address], [place] [phone] * (ABNORMAL) Complete blood count (09/04/2024 7:32 AM EDT) [facility] [address] WBC 2.8(L) 4.8 - 10.8 K/mcL LAB HEMETOLOGY METHOD 09/04/2024 9:33 AM EDT [facility] RBC 4.20(L) 4.50 - 5.50 M/[facility] LAB HEMETOLOGY METHOD 09/04/2024 9:33 AM EDT [facility] Hemoglobin 11.1(L) 13.5 - 17.5 g/dL LAB HEMETOLOGY METHOD 09/04/2024 9:33 AM EDT [facility] Hematocrit 36.0(L) 42.0 - 54.0 % LAB HEMETOLOGY METHOD 09/04/2024 9:33 AM EDT [facility] MCV 84.9 79.0 - 98.0 FL LAB HEMETOLOGY METHOD 09/04/2024 9:33 AM EDT [facility] MCH 26.2(L) 27.0 - 32.0 pcg LAB HEMETOLOGY METHOD 09/04/2024 9:33 AM EDT [facility] MCHC 30.8(L) 32.0 - 37.0 g/dL LAB HEMETOLOGY METHOD 09/04/2024 9:33 AM EDT [facility] RDW 17.7(H) 11.0 - 15.0 % LAB HEMETOLOGY METHOD 09/04/2024 9:33 AM EDT [facility] Platelets 201 130 - 400 K/mcL LAB HEMETOLOGY METHOD 09/04[facility]24 [facility] MPV LAB HEMETOLOGY METHOD 09/04/2024 9:33 AM EDT [facility] Comment:Not Measured NRBC 0.0 <1.0 % LAB HEMETOLOGY METHOD 09/04/2024 9:33 AM T [facility] NRBC Absolute 0.00 <0.10 K/mcL LAB HEMETOLOGY METHOD 09/04/2024 9:33 AM [facility] Blood Venous blood specimen / Unknown 09/04/2024 7:32 AM EDT 09/04/2024 8:29 AM EDT us Jeramie Schwartz MD LAB BLOOD ORDERABLES Final Resul t [facility] [address] [place] [address], * Prostate specific antigen screen (09/03/2024 6:28 AM EDT) PSA 0.49 0.00 - 4.00 ng/mL LAB CHEMISTRY METHOD 09/03/2024 10:39 AM EDT [facility] Blood Venous blood specimen / Unknown 09/03/2024 6:28 AM EDT 09/03/2024 8:22 AM EDT Narrative [facility] - 09/03/2024 10:39 AM EDT The Siemens Advia Centaur Chemiluminescent Immunoassay is used. Results obtained with different assay methods or kits cannot be used interchangeably. Results cannot be interpreted as absolute evidence of the presence or absence of malignant disease. us Jeramie Schwartz MD LAB BLOOD ORDERABLES Final Resul t Performing Organization Address [facility] Co de Phone Number [facility] [address] [place] [address], [place] [phone] * Vitamin D 25 hydroxy (09/03/2024 6:28 AM EDT) Vit D, 25-Hydroxy 57.0 30.0 - 80.0 ng/mL LAB CHEMISTRY METHOD 09/03/2024 10:39 AM EDT [facility] Blood Venous blood specimen / Unknown 09/03/2024 6:28 AM EDT 09/03/2024 8:22 AM EDT us Jeramie Schwartz MD LAB BLOOD ORDERABLES Final Resul t Performing Organization Address [facility] de Phone Number [facility] [address] [place] [address], [place] [phone] * Hemoglobin A1c (09/03/2024 6:28 AM EDT) Only the most recent of2 resultswithin the time period is included. Hemoglobin A1C 5.4 <6.5 % LAB CHEMISTRY METHOD 09/03/2024 10:38 AM EDT [facility] Mean Bld Glu Estim. 108 mg/dL LAB CHEMISTRY METHOD 09/03/2024 10:38 AM EDT [facility] Blood Venous blood specimen / Unknown 09/03/2024 6:28 AM EDT 09/03/2024 8:22 AM EDT us Jeramie Schwartz MD LAB BLOOD ORDERABLES Final Resul t [facility] [address] [place] [address], [place] [phone] * (ABNORMAL) Comprehensive metabolic panel (09/03/2024 6:28 AM EDT) Sodium 144 133 - 145 mmol/L LAB CHEMISTRY METHOD 09/03/2024 9:53 AM [facility] Potassium 4.4 3.5 - 5.5 mmol/L LAB CHEMISTRY METHOD 09/03/2024 9:53 AM [facility] Chloride 111(H) 96 - 110 mmol/L LAB CHEMISTRY METHOD 09/03/2024 9:53 AM [facility] CO2 26 21 - 32 mmol/L LAB CHEMISTRY METHOD 09/03/2024 9:53 AM [facility] Anion Gap 7 3 - 11 LAB CHEMISTRY METHOD 09/03/2024 9:53 AM [facility] Glucose 75 70 - 100 mg/dL LAB CHEMISTRY METHOD 09/03/2024 9:53 AM [facility] BUN 19 5 - 25 mg/dL LAB CHEMISTRY METHOD 09/03/2024 9:53 AM [facility] Creatinine 1.04 0.70 - 1.30 mg/dL LAB CHEMISTRY METHOD 09/03/2024 9:53 AM [facility] eGFR 78 >=60 mL/min/1. 73m2 LAB CHEMISTRY METHOD 09/03/2024 9:53 AM [facility] Comment:Calculation based on the??Chronic Kidney Disease Epidemiology Collaboration (CKD-EPI) equation refit??without adjustment for race. BUN/Creatinine Ratio 18.3 LAB CHEMISTRY METHOD 09/03/2024 9:53 AM [facility] Calcium 8.7 8.5 - 10.5 mg/dL LAB CHEMISTRY METHOD 09/03/2024 9:53 AM EDT [facility] AST (SGOT) 14 10 - 42 unit/L LAB CHEMISTRY METHOD 09/03/2024 9:53 AM EDT [facility] ALT (SGPT) 18 10 - 60 unit/L LAB CHEMISTRY METHOD 09/03/2024 9:53 AM EDT [facility] Alkaline Phosphatase 86 42 - 121 unit/L LAB CHEMISTRY METHOD 09/03/2024 9:53 AM EDT [facility] Total Protein 6.9 6.0 - 8.0 g/dL LAB CHEMISTRY METHOD 09/03/2024 9:53 AM [facility] Albumin 3.1(L) 3.2 - 5.0 g/dL LAB CHEMISTRY METHOD 09/03/2024 9:53 AM [facility] Total Bilirubin 0.4 0.0 - 1.4 mg/dL LAB CHEMISTRY METHOD 09/03/2024 9:53 AM T [facility] Blood Venous blood specimen / Unknown 09/03/2024 6:28 AM EDT 09/03/2024 8:22 AM EDT us Jeramie Schwartz MD LAB BLOOD ORDERABLES Final Resul t [facility] [address] [place] [address], * Levetiracetam level (08/25/2024 5:20 AM EDT) Levetiracetam 12.0 3.0 - 60.0 ug/mL 08/27/2024 5:48 AM EDT [facility] Comment: Steady state trough serum or plasma levels following doses of 1000 to 3000 mg/Day: ??3 to 37 ug/mL. The same dosage regimen will typically result in peak levels of 10 to 60 ug/mL, at approximately 1.5 hours post dose. If applicable, any drug confirmation testing reported here was developed and the performance characteristics determined by [facility]. This confirmation testing has not been cleared or approved by the FDA. The laboratory is regulated under CLIA as qualified to perform high-complexity testing. This test is used for patient testing purposes. It should not be regarded as investigational or for research. Test performed at [facility], [address] , [place], [place] ??[address] ? [phone] Marcy Abarca MD, PhD - Blood Bank Supervisor Blood Venous blood specimen / Unknown 08/25/2024 5:20 AM EDT 08/25/2024 6:33 AM EDT us Jeramie Schwartz MD LAB BLOOD ORDERABLES Final Resul t Performing Organization Address City/[facility]/ZIP Co de Phone Number [facility] [address] [place] [address] * Creatinine (07/27/2024 4:44 AM EDT) Creatinine 1.02 0.70 - 1.30 mg/dL LAB CHEMISTRY METHOD 07/27/2024 5:44 AM EDT [facility] eGFR 80 >=60 mL/min/1. 73m2 LAB CHEMISTRY METHOD 07/27/2024 5:44 AM EDT [facility] Comment:Calculation based on the??Chronic Kidney Disease Epidemiology Collaboration (CKD-EPI) equation refit??without adjustment for race. Blood Venous blood specimen / Unknown 07/27/2024 4:44 AM EDT 07/27/2024 5:27 AM EDT us Jeramie Schwartz MD LAB BLOOD ORDERABLES Final Resul t Performing Organization Address City/[facility]/ZIP Co de Phone Number [facility] [address] [place] [address], [place] [phone] * BUN (07/27/2024 4:44 AM EDT) BUN 18 5 - 25 mg/dL LAB CHEMISTRY METHOD 07/27/2024 5:[address] [facility]) [facility] Blood Venous blood specimen / Unknown 07/27/2024 4:44 AM EDT 07/27/2024 5:27 AM EDT us Jeramie Schwartz MD LAB BLOOD ORDERABLES Final Resul t [facility] ([facility]) [facility] [address] [place] [address], [place] [phone] from Last 3 Months Insurance [employer] [address] [id number] MEDICARE Care Teams Irish Moss Bleacher Relationship Specialty Start Date End Date Jeramie Schwartz MD [address] [place] [address] Dr [address] [place], [place] PCP - General Internal Medicine 06/02/24
--- OUTSIDE RECORDS SUMMARY | 2024-09-11 14:49 | XMS_ITS | Encounter Summary ---
Author Organization [facility] Address [address] [place] [address] Care Team Providers Care X Ray Consultant Name Role Phone Jeramie Schwartz MD Primary Care Provider [phone] Encounter Details Date Type Department Care Team (Late st Contact Info) Description 09/04/2024 Lab Requisition [facility] Lab [address] [facility] [address] [place] [address] Jeramie Schwartz MD [address] [place] [address] [address] [place], [place] Vitamin D deficiency, unspecified Social History Tobacco Use Types Packs/Day [...] Procedure Name Priority Date/Time Associated Diagnosis Comments COMPLETE BLOOD COUNT Routine 09/04/2024 7:32 AM EDT Vitamin D deficiency, unspecified documented in this encounter Results * (ABNORMAL) Complete blood count (09/04/2024 7:32 AM EDT) WBC 2.8(L) 4.8 - 10.8 K/[facility] LAB HEMETOLOGY METHOD 09/04/2024 9:33 AM EDT [facility] LAB RBC 4.20(L) 4.50 - 5.50 M/[facility] LAB HEMETOLOGY METHOD 09/04/2024 9:33 AM [...] % LAB HEMETOLOGY METHOD 09/04/2024 9:33 AM [facility] LAB Platelets 201 130 - 400 K/mcL LAB HEMETOLOGY METHOD 09/04/2024 9:33 AM EDT [facility] LAB MPV LAB HEMETOLOGY METHOD 09/04/2024 9:33 AM EDT [facility] LAB Comment:Not Measured NRBC 0.0 <1.0 % LAB [facility] NRBC Absolute 0.00 <0.10 K/mcL LAB HEMETOLOGY METHOD 09/04/2024 9:33 AM T [facility] LAB Blood Venous blood specimen / Unknown 09/04/2024 7:32 AM EDT 09/04/2024 8:29 AM EDT us Jeramie Schwartz MD LAB BLOOD ORDERABLES Final Resul t [facility] LAB [address] [place] [address], documented in this encounter Visit Diagnoses Diagnosis Vitamin D deficiency, unspecified documented in this encounter Care Teams X Ray Consultant Relationship Specialty Start Date End Date Jeramie Schwartz MD [address] [place] [address] Dr [address] MARS Chaudhry PCP - General Internal Medicine 06/02/24 documented as of this encounter
--- OUTSIDE RECORDS SUMMARY | 2024-09-11 14:49 | XMS_ITS | Encounter Summary ---
Author Organization [employer] (acquired by [employer] in 2014) Address [address] [place] [address] Care Team Providers Care Director Specialty Name Role Phone Jeramie Schwartz MD Primary Care Provider [phone] Encounter Details Date Type Department Care Team (Latest Contact Info) Description 09/03/2024 Lab Requisition [facility] - Main Lab 299 [facility] [place] [address] Jeramie Schwartz MD [address] [place] [address] [address] [place], [place] 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 unspecified duration, sequela (CMS/[facility] V24); Benign prostatic hyperplasia without lower urinary tract symptoms; Type 2 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, left eye (CMS/HCC V24, CMS/HCC V28); Vitamin D deficiency, unspecified Social History Tobacco Use Types Packs/Day Years Used Date Smoking Tobacco: Never Assessed Sex and Gender Information Value Date Recorded Sex Assigned at Not on file Legal Sex Male 8:09 PM EST Gender Identity Not on file Sexual Orientation Not on file documented as of this encounter Plan of Treatment Pending Results Name Type Priority Associated Diagnoses Date /Time Lavender tube Lab Routine 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 unspecified duration, sequela ([facility]/HCC V24) Benign prostatic hyperplasia without lower urinary tract symptoms Type 2 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, left eye (CMS/HCC V24, CMS/HCC V28) Vitamin D deficiency, unspecified 09/03/2024 6:28 AM EDT documented as of this encounter Procedures Procedure Name Priority Date/Time Associated Diagnosis Comments PROSTATE SPECIFIC ANTIGEN SCREEN Routine 09/03/2024 6:28 AM EDT 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 unspecified duration, sequela ([facility] V24) Benign prostatic hyperplasia without lower [...] V24, CMS/HCC V28) Vitamin D deficiency, unspecified documented in this encounter Results * (ABNORMAL) CBC auto differential (09/03/2024 6:28 AM EDT) WBC 3.9(L) 4.8 - 10.8 K/mcL LAB HEMETOLOGY METHOD 09/03/2024 8:55 AM [facility] LAB RBC 4.30(L) 4.50 - 5.50 M/mcL LAB HEMETOLOGY METHOD 09/03/2024 8:[facility] Hemoglobin 11.3(L) 13.5 - 17.5 g/dL LAB HEMETOLOGY METHOD 09/03/2024 8:55 AM [facility] LAB Hematocrit 36.9(L) 42.0 - 54.0 % LAB HEMETOLOGY METHOD 09/03/2024 8:55 AM [facility] LAB MCV 86.0 79.0 - 98.0 FL LAB HEMETOLOGY METHOD 09/03/2024 8:55 AM [facility] LAB MCH 26.3(L) 27.0 - 32.0 pcg LAB HEMETOLOGY METHOD 09/03/2024 8:55 AM [facility] LAB MCHC 30.6(L) 32.0 - 37.0 g/dL LAB HEMETOLOGY METHOD 09/03/2024 8:55 AM [facility] LAB RDW 17.4(H) 11.0 - 15.0 % LAB HEMETOLOGY METHOD 09/03/2024 8:55 [facility] Platelets 278 130 - 400 K/mcL LAB HEMETOLOGY METHOD 09/03/2024 8:55 AM [facility] LAB MPV 12.7(H) 7.0 - 11.0 FL LAB HEMETOLOGY METHOD 09/03/2024 8:55 AM [facility] LAB NRBC 0.0 <1.0 % LAB HEMETOLOGY METHOD 09/03/2024 8:55 AM EDT [facility] LAB NRBC Absolute 0.00 <0.10 K/mcL LAB HEMETOLOGY METHOD 09/03/2024 8:55 AM [facility] LAB Neutrophils Relative 48.8 % LAB HEMETOLOGY METHOD 09/03/2024 8:55 AM [facility] Lymphocytes Relative 26.7 % LAB HEMETOLOGY METHOD 09/03/2024 8:55 AM [facility] LAB Monocytes Relative 15.6 % LAB HEMETOLOGY METHOD 09/03/2024 8:55 AM [facility] LAB Eosinophils Relative 7.9 % LAB HEMETOLOGY METHOD 09/03/2024 8:55 AM [facility] LAB Basophils Relative 0.5 % LAB HEMETOLOGY METHOD 09/03/2024 8:55 AM [facility] LAB Immature Granulocytes Relative 0.5 % LAB HEMETOLOGY METHOD 09/03/2024 8:55 AM [facility] LAB Neutrophils Absolute 1.90 1.50 - 7.00 K/mcL LAB HEMETOLOGY METHOD 09/03/2024 8:55 AM [facility] LAB Lymphocytes Absolute 1.04 1.00 - 5.00 K/mcL LAB HEMETOLOGY METHOD 09/03/2024 8:55 AM [facility] LAB Monocytes Absolute 0.61 0.20 - 1.00 K/mcL LAB HEMETOLOGY METHOD 09/03/2024 8:55 AM [facility] LAB Eosinophils Absolute 0.31 0.00 - 0.50 K/mcL LAB HEMETOLOGY METHOD 09/03/2024 8:55 AM [facility] LAB Basophils Absolute 0.02 0.00 - 0.20 K/mcL LAB HEMETOLOGY METHOD 09/03/2024 8:55 AM [facility] LAB Immature Granulocytes Absolute 0.02 0.00 - 0.03 K/mcL LAB HEMETOLOGY METHOD 09/03/2024 8:55 AM EDT [facility] LAB Blood Venous blood specimen / Unknown 09/03/2024 6:28 AM EDT 09/03/2024 8:22 AM EDT us Jeramie Schwartz MD LAB BLOOD ORDERABLES Final Resul t Performing Organization Address City/[facility]/ZIP Co de Phone Number [facility] LAB [address] [place] [address], [place] [phone] * Vitamin D 25 hydroxy (09/03/2024 6:28 AM EDT) Vit D, 25-Hydroxy 57.0 30.0 - 80.0 ng/mL LAB CHEMISTRY METHOD 09/03/2024 10:39 AM EDT [facility] Blood Venous blood specimen / Unknown 09/03/2024 6:28 AM EDT 09/03/2024 8:22 AM EDT us Jeramie Schwartz MD LAB BLOOD ORDERABLES Final Resul t Performing Organization Address [facility] de Phone Number [facility] [address] [place] [address], [place] [phone] * Prostate specific antigen screen (09/03/2024 6:28 AM EDT) PSA 0.49 0.00 - 4.00 ng/mL LAB CHEMISTRY METHOD 09/03/2024 10:39 AM EDT [facility] Blood Venous blood specimen / Unknown 09/03/2024 6:28 AM EDT 09/03/2024 8:22 AM EDT Narrative [facility] - 09/03/2024 10:39 AM EDT The Siemens Advia Drimkiaur Chemiluminescent Immunoassay is used. Results obtained with different assay methods or kits cannot be used interchangeably. Results cannot be interpreted as absolute evidence of the presence or absence of malignant disease. us Jeramie Schwartz MD LAB BLOOD ORDERABLES Final Resul t Performing Organization Address [facility]/ZIP Co de Phone Number [facility] [address] [place] [address], [place] [phone] * Hemoglobin A1c (09/03/2024 6:28 AM EDT) Pathologist [facility] Hemoglobin A1C 5.4 <6.5 % LAB CHEMISTRY METHOD 09/03/2024 10:38 AM EDT [facility] Mean Bld Glu Estim. 108 mg/dL LAB CHEMISTRY METHOD 09/03/2024 10:38 AM EDT [facility] Blood Venous blood specimen / Unknown 09/03/2024 6:28 AM EDT 09/03/2024 8:22 AM EDT us Jeramie Schwartz MD LAB BLOOD ORDERABLES Final Resul t Performing Organization Address [facility] de Phone Number [facility] [address] [place] [address], [place] [phone] * (ABNORMAL) Comprehensive metabolic panel (09/03/2024 6:28 AM EDT) [facility] Sodium 144 133 - 145 mmol/L LAB CHEMISTRY METHOD 09/03/2024 9:53 AM EDT [facility] Potassium 4.4 3.5 - 5.5 mmol/L LAB CHEMISTRY METHOD 09/03/2024 9:53 AM EDT [facility] Chloride 111(H) 96 - 110 mmol/L LAB CHEMISTRY METHOD 09/03/2024 9:53 AM EDT [facility] CO2 26 21 - 32 mmol/L LAB CHEMISTRY METHOD 09/03/2024 9:53 AM EDT [facility] Anion Gap 7 3 - 11 LAB CHEMISTRY METHOD 09/03/2024 9:53 AM EDT [facility] Glucose 75 70 - 100 mg/dL LAB CHEMISTRY METHOD 09/03/2024 9:53 AM [facility] BUN 19 5 - 25 mg/dL LAB CHEMISTRY METHOD 09/03/2024 9:53 AM [facility] LAB Creatinine 1.04 0.70 - 1.30 mg/dL LAB CHEMISTRY METHOD 09/03/2024 9:53 AM [facility] LAB eGFR 78 >=60 mL/min/1. 73m2 LAB CHEMISTRY METHOD 09/03/2024 9:53 AM [facility] LAB Comment:Calculation based on the??Chronic Kidney Disease Epidemiology Collaboration (CKD-EPI) equation refit??without adjustment for race. BUN/Creatinine Ratio 18.3 LAB CHEMISTRY METHOD 09/03/2024 9:53 AM [facility] LAB Calcium 8.7 8.5 - 10.5 mg/dL LAB CHEMISTRY METHOD 09/03/2024 9:53 AM [facility] LAB AST (SGOT) 14 10 - 42 unit/L LAB CHEMISTRY METHOD 09/03/2024 9:53 AM [facility] LAB ALT (SGPT) 18 10 - 60 unit/L LAB CHEMISTRY METHOD 09/03/2024 9:53 AM [facility] LAB Alkaline Phosphatase 86 42 - 121 unit/L LAB CHEMISTRY METHOD 09/03/2024 9:53 AM [facility] Total Protein 6.9 6.0 - 8.0 g/dL LAB CHEMISTRY METHOD 09/03/2024 9:53 AM [facility] LAB Albumin 3.1(L) 3.2 - 5.0 g/dL LAB CHEMISTRY METHOD 09/03/2024 9:53 AM [facility] Total Bilirubin 0.4 0.0 - 1.4 mg/dL LAB CHEMISTRY METHOD 09/03/2024 9:53 AM [facility] LAB Blood Venous blood specimen / Unknown 09/03/2024 6:28 AM EDT 09/03/2024 8:22 AM EDT Jeramie Schwartz MD LAB BLOOD ORDERABLES Final Resul t [facility] ([facility]) [facility] LAB [address] [place] [address], documented in this encounter Visit Diagnoses Diagnosis 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 unspecified duration, sequela (CMS/[facility] V24) Benign prostatic hyperplasia without lower urinary tract symptoms Type 2 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, left eye (CMS/HCC V24, CMS/[facility] V28) Vitamin D deficiency, unspecified documented in this encounter Care Teams Director Specialty Relationship Specialty Start Date End Date Jeramie Schwartz MD [address] [place] [address] Dr [address] [place], [place] PCP - General Internal Medicine 06/02/24 documented as of this encounter
--- OUTSIDE RECORDS SUMMARY | 2024-09-11 14:49 | XMS_ITS | Encounter Summary ---
Author Organization [facility] Address [address] [place] [address] Care Team Providers Care Remote Advisor Name Role Phone Jeramie Schwartz MD Primary Care Provider [phone] Encounter Details Date Type Department Care Team (Late st Contact Info) Description 09/09/2024 Lab Requisition [facility] Lab [address] [place] [address] Jeramie Schwartz MD [address] [place] [address] [address] [place], [place] Diffuse traumatic brain injury with loss [...] consciousness of unspecified duration, sequela (CMS/HCC V24) CBC AND DIFFERENTIAL Routine 09/09/2024 6:15 AM EDT 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 unspecified duration, sequela (CMS/HCC V24) documented in this encounter Results * (ABNORMAL) CBC auto differential (09/09/2024 6:15 AM EDT) WBC 3.8(L) 4.8 - 10.8 K/[facility] LAB HEMETOLOGY METHOD 09/09/2024 12:29 PM EDT [facility] ([facility]) [facility] LAB RBC 4.20(L) 4.50 - 5.50 M/mcL [...] 12:29 PM [facility] LAB Monocytes Absolute 0.48 0.20 - 1.00 K/mcL LAB HEMETOLOGY METHOD 09/09/2024 12:29 PM [facility] LAB Eosinophils Absolute 0.16 0.00 - 0.50 K/mcL LAB HEMETOLOGY METHOD 09/09/2024 12:29 PM [facility] LAB Basophils Absolute 0.02 0.00 - 0.20 K/mcL LAB HEMETOLOGY METHOD 09/09/2024 12:29 PM [facility] LAB Immature Granulocytes Absolute 0.01 0.00 - 0.03 K/mcL LAB HEMETOLOGY METHOD 09/09/2024 12:29 PM [facility] LAB Blood Venous blood specimen / Unknown 09/09/2024 6:15 AM EDT 09/09/2024 7:18 AM EDT Jeramie Schwartz MD LAB BLOOD ORDERABLES Final Resul t [facility] ([facility] LAB [address] [place] [address], documented in this encounter Visit Diagnoses Diagnosis 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 unspecified duration, sequela (CMS/HCC V24) documented in this encounter Care Teams Remote Advisor Relationship Specialty Start Date End Date Jeramie Schwartz MD [address] [place] [address] Dr [address] [place], [place] PCP - General Internal Medicine 06/02/24 documented as of this encounter
--- OUTSIDE RECORDS SUMMARY | 2024-09-11 14:49 | XMS_ITS | Encounter Summary ---
Author Organization [employer] Address [address] [place] [address] Care Team Providers Care Manager Credit Name Role Phone Jeramie Schwartz MD Primary Care Provider [phone] Encounter Details Date Type Department Care Team (Late st Contact Info) Description 08/25/2024 Lab Requisition [facility] - Main Lab [address] [facility] [place] [address] Jeramie Schwartz MD [address] [place] [address] [address] [place], [place] Other longterm (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 Social History Tobacco Use [...] Priority Date/Time Associated Diagnosis Comments PREGABALIN Routine 08/25/2024 5:20 AM EDT Other longterm (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 LEVETIRACETAM LEVEL Routine 08/25/2024 5 :20 AM EDT Other ocean transportation intermediary (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 documented in this encounter Results * Pregabalin (08/25/2024 5:20 AM EDT) Pregabalin 4.0 ug/mL 08/28/2024 5:05 PM EDT [facility] Comment: Therapeutic and toxic ranges have not been established. Expected steady state pregabalin concentrations in patients taking recommended daily dosages: ??up to 10 ug/mL. This test was developed and its performance characteristics determined by [facility]. It has not been cleared or approved by the Food and Drug Administration. Blood Venous blood specimen / Unknown 08/25/2024 5:20 AM EDT 08/25/2024 6:33 AM EDT Narrative [facility] - 08/28/2024 5:05 PM EDT Performed at: ??01 - [employer] [address] [place] [address] ??[id number] Cannoneer: Michelle Jimenez [facility], Phone: ??[phone] Jeramie Schwartz MD LAB BLOOD ORDERABLES Final Resul t Performing Organization Address [facility] de Phone Number [facility] * Levetiracetam level (08/25/2024 5:20 AM EDT) Levetiracetam 12.0 3.0 - 60.0 ug/mL 08/27/2024 5:48 AM EDT [facility] Comment: Steady state trough serum or plasma levels following doses of 1000 to 3000 mg/Day: ??3 to 37 ug/mL. The same dosage regimen will typically result in peak levels of 10 to 60 ug/mL, at approximately 1.5 hours post dose. If applicable, any drug confirmation testing reported here was developed and the performance characteristics determined by [facility]. This confirmation testing has not been cleared or approved by the FDA. The laboratory is regulated under CLIA as qualified to perform high-complexity testing. This test is used for patient testing purposes. It should not be regarded as investigational or for research. Test performed at [facility], [address] , [place], [place] ??[address] ? [phone] Marcy Abarca MD, PhD - [employer] Blood Venous blood specimen / Unknown 08/25/2024 5:20 AM EDT 08/25/2024 6:33 AM EDT us Jeramie Schwartz MD LAB BLOOD ORDERABLES Final Resul t Performing Organization Address [facility] Co de Phone Number [facility] [address] [place] [address] documented in this encounter Visit Diagnoses Diagnosis Other ocean transportation intermediary (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 documented in this encounter Care Teams Manager Credit Relationship Specialty Start Date End Date Jeramie Schwartz MD [address] [place] [address] [address] MARS Chaudhry PCP - General Internal Medicine 06/02/24 documented as of this encounter
== END 2024-09-11 14:48 | disposition home or self-care (01) ==
LOC: HO.US 14:47
PROVIDERS: PCP Hospitalist; Visit Provider Hospitalist
DX: I82.501 Chronic embolism and thrombosis of unspecified deep veins of right lower extremity (principal)
CPT/HCPCS: 93971

== ENCOUNTER → 2024-09-11 15:17 | Outpatient (BNV) | payer MEDICARE, MEDICAID, SELFPAY | PROVIDERS: PCP Hospitalist; Visit Provider Radiology Diagnostic Radiology | DX: Z86.718 Personal history of other venous thrombosis and embolism (principal); I82.501 Chronic embolism and thrombosis of unspecified deep veins of right lower extremity | CPT/HCPCS: 93971 ==

== ENCOUNTER 2024-09-21 10:13 | Outpatient (REF) | payer MEDICARE, MEDICAID, SELFPAY ==
--- NOTE | ~2024-09-21 | MR_ITS ---
EXAMINATION: MRCP HISTORY: CYST OF PANCREAS 1.8CM HYPODENSITY PANCREATIC TAIL COMPARISON: Relation is made with a CT of the abdomen with contrast dated 08/03/2024. TECHNIQUE: Axial gradient echo and coronal haste T2 with fat saturation images were obtained through the abdomen. 3D MRCP Reconstructed images and thick slab imaging of the biliary tree were obtained. FINDINGS: The examination is limited by patient motion. No definite loss of signal intensity is seen in the liver on opposed phase imaging to suggest steatosis. There are probable cysts in the left lobe of the liver measuring up to 1.9 cm in size. There is no intra or extrahepatic biliary ductal dilatation. No filling defects are identified within the common bile duct to suggest choledocholithiasis. The gallbladder, spleen, adrenals, and right kidney are unremarkable. Subcentimeter hypodensities in the left kidney likely represent cysts but are too small to accurately characterize. There is a 1.1 x 0.8 cm cystic structure in the pancreatic body/tail as noted on CT. Evaluation for enhancement is not possible due to lack of contrast administration. No retroperitoneal lymphadenopathy or ascites is identified in the upper abdomen. The visualized bones demonstrate normal marrow signal intensity. MR/MR MRCP IMPRESSION: 1. 1.1 x 0.8 cm cystic structure in the pancreatic body/tail as noted on CT. This could represent an IPMN. A follow-up examination in 12 months is recommended. 2. Probable hepatic cysts measuring up to 1.9 cm in size. Electronically signed by: Santos Claros MD 09/21/2024 11:52 AM EDT
== END 2024-09-21 10:14 | disposition home or self-care (01) ==
LOC: HO.MRI 10:13
PROVIDERS: PCP Hospitalist; Visit Provider Hospitalist
DX: K86.2 Cyst of pancreas (principal)
CPT/HCPCS: 74181

== ENCOUNTER → 2024-09-21 10:20 | Outpatient (BNV) | payer MEDICARE, MEDICAID, SELFPAY | PROVIDERS: PCP Hospitalist; Visit Provider Radiology Diagnostic Radiology | DX: K86.2 Cyst of pancreas (principal) | CPT/HCPCS: 74181 ==

== ENCOUNTER 2024-10-07 10:38 | Inpatient (IN) | payer MEDICARE, MEDICAID, SELFPAY ==
[2024-10-07] VITALS (10 sets, daily range): BP systolic 85–151; BP diastolic 47–82; PULSE 52–78; RESP 13–18; TEMP 36.7–37.4; O2SAT 91–99; BMI 24.4; BMI 26.7
--- NOTE | ~2024-10-07 | CT_ITS ---
EXAMINATION: CT HEAD WITHOUT CONTRAST CLINICAL INFORMATION: Altered mental status DLP: 739 mGY*cm COMPARISON: June 14, 2023 TECHNIQUE: Contiguous axial imaging was performed from the skull base to vertex without intravenous administration of contrast. This CT examination was performed using dose optimization techniques as appropriate, variously including the following: *Automated exposure control *Adjustment of mA and/or kV according to patient size (this includes techniques or standardized protocols for targeted exams where dose is matched to indication/reason for exam; i.e. extremities or head) *Use of iterative reconstruction technique FINDINGS: There is a hemispherical calcification along the anterior right falx measuring 31 x 10 x 6 mm appearing AP by cc by transverse). There is a smaller similar area more posteriorly. This could represent a calcified meningioma versus calcification of the falx There is no acute ischemic change. There is no intracranial hemorrhage. There is no mass-effect or midline shift. Basal cisterns and ventricles are within normal limits for size. CT/CT head/brain wo IV con IMPRESSION: No acute intracranial abnormality. Stable falx calcification versus small chronically calcified meningioma. Electronically signed by: Kyle Soares MD 10/07/2024 02:22 PM EDT
--- NOTE | ~2024-10-07 | XR_ITS ---
EXAMINATION: XR CHEST 1 VIEW HISTORY: AMS, fever COMPARISON: Comparison is made with the prior examination dated 07/02/2024. FINDINGS: A single AP portable view of the chest performed at 11:31 AM is submitted. There are low lung volumes. There is pulmonary vascular prominence, suggestive of congestion. There is no pleural effusion, pneumothorax, or pulmonary vascular congestion. Heart appears mildly enlarged. The bones are intact. XR/XR chest 1V IMPRESSION: Low lung volumes, limiting evaluation. Possible mild pulmonary vascular congestion. Electronically signed by: Santos Claros MD 10/07/2024 01:02 PM EDT
--- NOTE | ~2024-10-07 | CT_ITS ---
EXAMINATION: CT ABDOMEN PELVIS WITHOUT IV CONTRAST HISTORY: abdominal pain COMPARISON: Comparison is made with the prior examination dated 08/03/2024. TECHNIQUE: CT scan of the abdomen and pelvis was performed without contrast using standard departmental protocol. Coronal and sagittal reformatted images were generated and reviewed. Oral contrast material was not administered at the request of the referring physician. This CT exam was performed with one or more of the following dose reduction techniques: automated exposure control, adjustment of the mA and/or kV according to patient size, use of iterative reconstruction technique. DLP: 739 mGy-cm FINDINGS: LOWER CHEST: There are airspace opacities with air bronchograms at both lung bases, consistent with pneumonia. There is no pleural effusion. CARDIOVASCULATURE: The heart is normal in size. There is no pericardial effusion. LIVER: The liver is normal in size and contour. Again seen are cyst in the left lobe of the liver measuring up to 1.6 cm in size. GALLBLADDER / BILE DUCTS: The gallbladder is unremarkable. There is no intra or extrahepatic biliary ductal dilatation. SPLEEN: The spleen is normal in size and has an unremarkable unenhanced appearance. PANCREAS: The pancreas has an unremarkable unenhanced appearance. ADRENAL GLANDS: Unremarkable. KIDNEYS/RETROPERITONEUM: No renal calculi are identified. There is mild prominence of the bilateral intrarenal collecting systems which may be secondary to a full urinary bladder. LYMPH NODES: No retroperitoneal lymphadenopathy is identified in the abdomen or pelvis. VASCULATURE: The abdominal aorta is normal in caliber. MESENTERY/PERITONEUM: No free fluid. No masses. There is no free intraperitoneal gas. STOMACH: The stomach is collapsed, limiting evaluation. SMALL BOWEL: The small bowel is normal in caliber. COLON: There is a large amount of stool throughout the colon particularly in the rectum. There is mild rectal wall thickening. APPENDIX: Normal. URINARY BLADDER/PELVIC ORGANS: The urinary bladder is distended. The prostate is normal in size. BONES / SOFT TISSUES: No suspicious bony or soft tissue abnormalities. CT/CT abdomen pelvis wo IV con IMPRESSION: 1. Bilateral lower lobe pneumonia. Follow-up is recommended to document resolution. 2. Large amount of stool throughout the colon and rectum. Mild rectal wall thickening. Sigmoidoscopy is recommended to exclude neoplasm. 3. Mild prominence of the bilateral renal collecting systems which may be secondary to a full urinary bladder. Electronically signed by: Santos Claros MD 10/07/2024 02:22 PM EDT RP
[2024-10-07 10:58] LABS: Glucose, Whole Blood 115 mg/dL (60-115)
--- NOTE | 2024-10-07 11:00 | ECG_ITS ---
Test Reason : AMS Blood Pressure : */* mmHG Vent. Rate : 68 BPM Atrial Rate : 68 BPM P-R Int : 156 ms QRS Dur : 84 ms QT Int : 420 ms P-R-T Axes : 50 -12 22 degrees QTcB Int : 446 ms Normal sinus rhythm Normal ECG When compared with ECG of 22-Aug-2023 11:56, QT has lengthened Referred By: Generic ED Physician Electronically Signed By: CARI ROMO
--- NOTE | 2024-10-07 11:02 | ED_ITS ---
HPI - General Adult General Chief complaint: General Medical Stated complaint: WEAKNESS, LETHARGIC, FEVER Time Seen by Provider: 10/07/24 11:02 Source: EMS, RN notes reviewed, old records reviewed and claims agent right of way (Used an claims agent right of way remotely, patient was not able to participate) Mode of arrival: EMS Limitations: language barrier and altered mental status History of Present Illness ED Provider: HPI narrative: 69-year-old male from rehab facility specializing in TBI eyes, presenting with worsening mental status from baseline. They reports that he has had fevers, he is afebrile in the emergency department, given antipyretic by the rehab facility. Patient is arousable to stimulus, followed some commands, was not able to participate in additional gathering information as he is very lethargic. Related Data Home Medications ?Medication ?Instructions ?Recorded ?Confirmed aluminum-mag hydroxide-simethicone 5 ml PO QID PRN 05/25/24 400 mg-400 mg-40 mg/5 mL oral susp (Mylanta Maximum Strength) benztropine 0.5 mg tablet 0.5 mg PO DAILY 05/25/24 carbamazepine 400 mg 400 mg PO BID 05/25/24 tablet,extended release,12 hr cholecalciferol (vitamin D3) 25 25 mcg PO DAILY 05/25/24 mcg (1,000 unit) capsule famotidine 40 mg tablet 40 mg PO DAILY 05/25/24 ferrous fumarate 325 mg (106 mg 325 mg PO DAILY 05/25/24 iron) tablet fluphenazine HCl 10 mg tablet 10 mg PO DAILY 05/25/24 glucagon 1 mg solution for 1 mg subcut Q20M PRN 05/25/24 injection levetiracetam 1,000 mg tablet 1,000 mg PO BID 05/25/24 (Keppra) lorazepam 2 mg/mL injection syringe 2 mg IV Q10M 05/25/24 metoprolol succinate 25 mg 25 mg PO DAILY 05/25/24 tablet,extended release 24 hr olanzapine 10 mg tablet 10 mg PO BEDTIME 05/25/24 pregabalin 100 mg capsule (Lyrica) 100 mg PO BEDTIME 05/25/24 rivaroxaban 20 mg tablet (Xarelto) 20 mg PO DAILY 05/25/24 sennosides 8.6 mg capsule (senna) 8.6 mg PO BEDTIME 05/25/24 Previous Rx's ?Medication ?Instructions ?Recorded sodium phosphates 19 gram-[address] DAILY 3 days #133 mL 04/19/23 gram/118 mL enema (Fleet Enema) Allergies Allergy/AdvReac Type Severity Reaction Status Date / Time No Known Drug Allergies Allergy Unknown none Verified 10/07/24 10:57 Review of Systems 2 Constitutional: Constitutional: Reports as per [facility] Past Medical History Medical History Psychotic disorder Hyperlipidemia DVT (deep venous thrombosis) Epilepsy Diabetes mellitus Hypertension TBI (traumatic brain injury) Social History Social History Unable to assess alcohol history related to: Unknown Patient Tobacco Use Status: Tobacco use Unknown Advance Directives: Yes Advance Directives on File: Yes Advance Directives Date on File: 08/23/23 Physical Exam ED Vital Signs: Vital Signs - 24 hr 10/07/24 10:47 10/07/24 12:03 10/07/24 12:11 Temperature 99.4 F Pulse Rate 62 56 62 Respiratory Rate 16 14 14 Blood Pressure 94/50 L 85/47 L 104/61 Pulse Oximetry 92 97 99 Oxygen Delivery Method Room Air Nasal Cannula Nasal Cannula Oxygen Flow Rate 2 2 10/07/24 13:05 10/07/24 14:19 Temperature 98.1 F Pulse Rate 62 52 Respiratory Rate 14 13 Blood Pressure 108/57 L 109/55 L Pulse Oximetry 98 94 Oxygen Delivery Method Nasal Cannula Nasal Cannula Oxygen Flow Rate 2 2 BMI result Body Mass Index 24.4 Const Other: * Gen: ? lethargic * HEENT: Dry oral mucosa, no scleral icterus * Neck: Supple, no LAD * CV: Fasting regular * Resp: ?No wheezing rales rhonchi no stridor moving air well * Abd: ?Bowel sounds are present, no tenderness no rebound no rigidity * Skin: Warm, dry, intact, * Neuro: ?Lethargic, was able to lift his arms and legs symmetrically, overall obvious loss of power Medications Administered Discontinued Medications Generic Name Dose Route Start Last Admin Trade Name Freq PRN Reason Stop Dose Admin Piperacillin Sod/Tazobactam 50 mls @ 100 mls/hr 10/07/24 11:26 10/07/24 12:14 Sod 3.375 gm/ Sodium Chloride IV 10/07/24 11:55 Infused ONCE ONE Infusion Vancomycin HCl 1,000 mg/ 535 mls @ 267.5 mls/hr 10/07/24 11:28 10/07/24 12:04 Vancomycin HCl 750 mg/ Sodium IV 10/07/24 13:27 Not Given Chloride ONCE ONE Sodium Chloride 2,310 mls @ 2,310 mls/hr 10/07/24 11:29 10/07/24 13:02 Ns 30 ml/kg infuse over 1 hr (2310 ml) 10/07/24 12:28 Infused IV Infusion .Q1H STA Vancomycin HCl 2,000 mg in 500 mls @ 250 mls/hr 10/07/24 11:31 10/07/24 13:45 Vancomycin/Ns IV 10/07/24 13:30 Infused ONCE ONE Infusion Medical Decision Making Medical Decision Making MDM Narrative: 11:24 am was asked to evaluate the patient who is presenting with lethargy, hypotension, I do suspect sepsis and he has had sepsis in the past. Considerations for sources of sepsis as below, we will initiate fluid resuscitation, and broad-spectrum antibiotics. 12:20 patient re-evaluated, blood pressure is improved, bedside ultrasound reveals good cardiac squeeze, IVC is no longer collapsed, no pericardial effusion no RV strain, images stored. Obtained parasternal long, parasternal short, 4 chamber and subxiphoid views. 14:54 we will admit patient for bilateral lower lobe pneumonia has been stable, blood pressure is improved and continued to be stable Differential Diagnosis Differential Diagnoses: The differential diagnosis associated with the presentation includes Pneumonia, UTI, dehydration, electrolyte derangements, metabolic encephalopathy, hepatic encephalopathy, stroke, Admission/Observation Consideration of admission/observation: Escalation of care including admission/observation considered Lab Data MDM Lab Attestation statement: I reviewed the patient's lab results. 10/07/24 11:27 10/07/24 12:13 Labs: Lab Results 10/07/24 10/07/24 10/07/24 Range/Units 10:49 11:12 11:27 WBC 14.3 H (4.8-10.8) X10*3/uL RBC 4.73 D (4.60-5.80) X10*6/uL Hgb 12.3 L D (14.0-18.0) g/dl Hct 37.8 L D (42.0-52.0) % MCV 79.9 L (80.0-98.0) fL MCH 26.0 L (27.0-33.0) pg MCHC 32.5 (31.0-36.0) g/dl RDW 16.2 H (11.0-16.0) % Plt Count 182 D (160-400) X10*3/uL MPV Not Reportable Immature Gran % (Auto) Cancelled Neut % (Auto) Cancelled Lymph % (Auto) Cancelled [place] % (Auto) Cancelled Eos % (Auto) Cancelled Baso % (Auto) Cancelled Lymph # (Auto) Cancelled [place] # (Auto) Cancelled Eos # (Auto) Cancelled Baso # (Auto) Cancelled Abs Immat Gran (auto) Cancelled Absolute Neuts (auto) Cancelled Absolute Nucleated RBC 0.000 (0.0-0.012) X10*3/uL Nucleated RBC % (auto) 0.0 (0.0-0.2) /100WBC Neutrophils % (Manual) 77 H (45-73) % Band Neutrophils % 15 H (3-5) % Lymphocytes % (Manual) 4 L (20-40) % Atypical Lymphs % (Man) 1 (0-6) % Monocytes % (Manual) 3 (2-11) % Eosinophils % (Manual) 1 (0-4) % Promyelocytes % 1 % Abs Neuts (Manual) 13.2 H (2.0-8.3) X10*3/uL Lymphocytes # (Manual) 0.6 L (1.2-4.9) X10*3/uL Atyp Lymphs # (Manual) 0.1 x10*3/uL Monocytes # (Manual) 0.4 (0.1-1.2) X10*3/uL Eosinophils # (Manual) 0.1 (0.0-0.4) X10*3/uL Promyelocytes # 0.1 X10*3/uL Toxic Vacuolation PRESENT Platelet Estimate NORMAL (NORMAL) Plt Morphology Comment NORMAL RBC Morphology NOTED Ovalocytes 1+ (5-14) /OIF PT 12.5 H (10.9-12.4) SEC INR 1.1 (0.9-1.1) APTT 26.0 D (26.0-36.8) SEC VBG pH (7.32-7.43) VBG pCO2 mmHg VBG pO2 mmHg VBG HCO3 (22-26) mmol/L VBG O2 Saturation % VBG Base Excess mmol/L Sodium (135-145) mmol/L Potassium (3.3-5.1) mmol/L Chloride (96-108) mmol/L Carbon Dioxide (22-29) mmol/L Anion Gap (12-20) BUN (9-16) mg/dL Creatinine (0.5-1.4) mg/dL Estim Creat Clear Calc Estimated GFR POC Glucose 115 (60-115) mg/dL Random Glucose (60-115) mg/dL Lactic Acid 2.0 (0.5-2.0) mmol/L Calcium (8.4-10.2) mg/dL Magnesium (1.6-2.6) mg/dL Total Bilirubin (0.0-1.0) mg/dL Direct Bilirubin (0.0-0.5) mg/dL AST (5-37) U/L ALT (0-40) U/L Alkaline Phosphatase (39-117) U/L Ammonia 28 (13-55) umol/L Total Protein (6.5-8.0) g/dL Albumin (3.5-5.0) g/dL Lipase (8-78) U/L Urine Color Urine Appearance Urine pH (5.0-9.0) Ur Specific [place] (1.005-1.025) Urine Protein (Neg-Trace) mg/dL Urine Glucose (UA) (Negative) mg/dL Urine Ketones (Negative) mg/dL Urine Blood (Negative) Urine Nitrite (Negative) Ur Leukocyte Esterase (Negative) Influenza Type A (PCR) NEGATIVE (Negative) Influenza Type B (PCR) NEGATIVE (Negative) RSV RNA Qual (PCR) NEGATIVE (Negative) SARS-CoV-2 RNA (RT-PCR) NEGATIVE (Negative) 10/07/24 10/07/24 10/07/24 Range/Units 11:32 12:13 12:26 WBC (4.8-10.8) X10*3/uL RBC (4.60-5.80) X10*6/uL Hgb (14.0-18.0) g/dl Hct (42.0-52.0) % MCV (80.0-98.0) fL MCH (27.0-33.0) pg MCHC (31.0-36.0) g/dl RDW (11.0-16.0) % Plt Count (160-400) X10*3/uL MPV Immature Gran % (Auto) Neut % (Auto) Lymph % (Auto) [place] % (Auto) Eos % (Auto) Baso % (Auto) Lymph # (Auto) [place] # (Auto) Eos # (Auto) Baso # (Auto) Abs Immat Gran (auto) Absolute Neuts (auto) Absolute Nucleated RBC (0.0-0.012) X10*3/uL Nucleated RBC % (auto) (0.0-0.2) /100WBC Neutrophils % (Manual) (45-73) % Band Neutrophils % (3-5) % Lymphocytes % (Manual) (20-40) % Atypical Lymphs % (Man) (0-6) % Monocytes % (Manual) (2-11) % Eosinophils % (Manual) (0-4) % Promyelocytes % % Abs Neuts (Manual) (2.0-8.3) X10*3/uL Lymphocytes # (Manual) (1.2-4.9) X10*3/uL Atyp Lymphs # (Manual) x10*3/uL Monocytes # (Manual) (0.1-1.2) X10*3/uL Eosinophils # (Manual) (0.0-0.4) X10*3/uL Promyelocytes # X10*3/uL Toxic Vacuolation Platelet Estimate (NORMAL) Plt Morphology Comment RBC Morphology Ovalocytes /OIF PT (10.9-12.4) SEC INR (0.9-1.1) APTT (26.0-36.8) SEC VBG pH 7.47 H (7.32-7.43) VBG pCO2 36 mmHg VBG pO2 67 mmHg VBG HCO3 26 (22-26) mmol/L VBG O2 Saturation 90.0 % VBG Base Excess 3.5 mmol/L Sodium 144 (135-145) mmol/L Potassium 4.9 (3.3-5.1) mmol/L Chloride 108 (96-108) mmol/L Carbon Dioxide 24 (22-29) mmol/L Anion Gap 17 (12-20) BUN 26 H (9-16) mg/dL Creatinine 1.64 H (0.5-1.4) mg/dL Estim Creat Clear Calc 43.8 Estimated GFR 42 POC Glucose (60-115) mg/dL Random Glucose 90 (60-115) mg/dL Lactic Acid (0.5-2.0) mmol/L Calcium 9.1 D (8.4-10.2) mg/dL Magnesium 2.1 (1.6-2.6) mg/dL Total Bilirubin 0.3 (0.0-1.0) mg/dL Direct Bilirubin 0.1 (0.0-0.5) mg/dL AST 36 (5-37) U/L ALT 17 (0-40) U/L Alkaline Phosphatase 74 (39-117) U/L Ammonia (13-55) umol/L Total Protein 7.2 (6.5-8.0) g/dL Albumin 3.5 (3.5-5.0) g/dL Lipase 14 (8-78) U/L Urine Color Yellow Urine Appearance Clear Urine pH 6.0 (5.0-9.0) Ur Specific [place] 1.015 (1.005-1.025) Urine Protein Negative (Neg-Trace) mg/dL Urine Glucose (UA) Negative (Negative) mg/dL Urine Ketones Negative (Negative) mg/dL Urine Blood Negative (Negative) Urine Nitrite Negative (Negative) Ur Leukocyte Esterase Negative (Negative) Influenza Type A (PCR) (Negative) Influenza Type B (PCR) (Negative) RSV RNA Qual (PCR) (Negative) SARS-CoV-2 RNA (RT-PCR) (Negative) Independent Interpretation I performed an independent interpretation of an: EKG (68, otherwise normal ECG without dysrhythmia, AV phong blocks or ST-T changes to suspect underlying ACS, my independent interpretation) and Plain X-Ray (Considering new consolidation right lower lobe) Radiology Impression Discussion of test interpretation with radiology: I have reviewed the radiologist's reading. Radiologist Impression: . Bilateral lower lobe pneumonia. Follow-up is recommended to document resolution. 2. Large amount of stool throughout the colon and rectum. Mild rectal wall thickening. Sigmoidoscopy is recommended to exclude neoplasm. 3. Mild prominence of the bilateral renal collecting systems which may be secondary to a full urinary bladder Discharge Plan Discharge Patient Disposition: Admitted As Inpatient Print Language: Cecil Jimenez
[2024-10-07 11:34] LABS: Hemoglobin 12.3 g/dl (14.0-18.0); Mean Corpuscular HGB Conc 32.5 g/dl (31.0-36.0)
[2024-10-07 11:36] LABS: VBG Base Excess 3.5 mmol/L; VBG HCO3 26 mmol/L (22-26); VBG pCO2 36 mmHg; VBG pH 7.47 (7.32-7.43); VBG pO2 67 mmHg
[2024-10-07 11:36] LABS: Hematocrit 37.8 % (42.0-52.0); Mean Corpuscular Volume 79.9 fL (80.0-98.0); Platelet Count 182 X10*3/uL (160-400); Red Blood Count 4.73 X10*6/uL (4.60-5.80); Red Cell Distribution Width 16.2 % (11.0-16.0); White Blood Count 14.3 X10*3/uL (4.8-10.8)
[2024-10-07 11:37] LABS: Venous Blood Gas Refer to POC result
[2024-10-07 11:37] LABS: PLT ABN DIST 1
[2024-10-07 11:40] LABS: INTERNATIONAL NORM RATIO 1.1 (0.9-1.1); Prothrombin Time 12.5 SEC (10.9-12.4)
[2024-10-07] MEDS: Piperacillin Sodium/Tazobactam 3.375 GM in 0.9 % Sodium Chloride 50 ML IV (11:44)
[2024-10-07] MEDS: vancomycin/NS 2,000 MG/500 ML PLAST..BAG 250 MG IV (11:45)
[2024-10-07] MEDS: 0.9 % Sodium Chloride 2,310 ML 2310 ML IV (11:45)
[2024-10-07 12:01] LABS: Ammonia 28 umol/L (13-55)
[2024-10-07 12:05] LABS: Neutrophils Percent Manual 77 % (45-73)
[2024-10-07 12:09] LABS: Atypical Lymph Absolute Manual 0.1 x10*3/uL; Atypical Lymphs Percent Manual 1 % (0-6); Band Neutrophils Percent 15 % (3-5); Eosinophils Absolute Manual 0.1 X10*3/uL (0.0-0.4); Eosinophils Percent Manual 1 % (0-4); Lymphocytes Absolute Manual 0.6 X10*3/uL (1.2-4.9); Lymphocytes Percent Manual 4 % (20-40); Monocytes Absolute Manual 0.4 X10*3/uL (0.1-1.2); Monocytes Percent Manual 3 % (2-11); Neutrophils Absolute Manual 13.2 X10*3/uL (2.0-8.3); Ovalocytes 1+ (5-14) /OIF; Platelet Estimate NORMAL (NORMAL); Platelet Morphology Comment NORMAL; Promyelocytes Absolute 0.1 X10*3/uL; Promyelocytes Percent 1 %; RBC Morphology NOTED; Toxic Vacuolation PRESENT
[2024-10-07 12:11] LABS: Influenza A PCR NEGATIVE (Negative); Influenza B PCR NEGATIVE (Negative); Resp Syncy Virus RNA Qual PCR NEGATIVE (Negative); SARS COV2 PCR INHOUSE NEGATIVE (Negative)
--- NOTE | 2024-10-07 12:11 | PC.NURSE ---
dr duoglas at the bedside, verbal oreder rec'd to place pt fluids on pressure bag, new BP documented
--- OUTSIDE RECORDS SUMMARY | 2024-10-07 12:29 | XMS_ITS | Encounter Summary ---
Author Organization [facility] Address [address] [place] [address] Care Team Providers Care Control Operator Flow Coat Name Role Phone Jeramie Schwartz MD Primary Care Provider [phone] Encounter Details Date Type Department Care Team (Latest Contact Info) Description 07/07/[address] [facility] - Main Lab [address] [facility] [place] [address] Jeramie Schwartz MD [address] [place] [address] [address] [place], [place] Diffuse traumatic brain injury with loss [...] diabetic retinopathy with macular edema, left eye ([facility]) HEMOGLOBIN A1C Routine 07/07/2024 6:53 AM EST 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 unspecified duration, sequela (CMS/HCC) Acute embolism and thrombosis of unspecified deep veins of right lower extremity (CMS/HCC) Hyperlipidemia, unspecified Vitamin D deficiency, unspecified Type 2 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, left eye ([facility]) documented in this encounter Results * Hemoglobin A1c (07/07/2024 6:53 AM EST) Hemoglobin A1C 5.4 <6.5 % LAB CHEMISTRY METHOD 07/07/2024 2:30 PM EST [facility] Mean Bld Glu Estim. 108 mg/dL LAB CHEMISTRY METHOD 07/07/2024 2:30 PM EST [facility] Blood Venous blood specimen / Unknown 07/07/2024 6:53 AM EST 07/07/2024 8:36 AM EST us Jeramie Schwartz MD LAB BLOOD ORDERABLES Final Resul t [facility] [address] [place] [address], * (ABNORMAL) CBC auto differential (07/07/2024 6:53 AM EST) WBC 4.7(L) 4.8 - 10.8 K/[facility] HEMETOLOGY METHOD 07/07/2024 9:44 AM EST [facility] RBC 4.00(L) 4.50 - 5.50 M/mcL LAB HEMETOLOGY METHOD 07/07/2024 9:44 AM EST [facility] Hemoglobin 10.4(L) 13.5 - 17.5 [...] 9:44 AM [facility] Eosinophils Absolute 0.21 0.00 - [...] MD LAB BLOOD ORDERABLES Final Resul t [facility] [address] [place] [address], documented in this encounter Visit Diagnoses Diagnosis 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 unspecified duration, sequela ([facility] V24) Acute embolism and thrombosis of unspecified deep veins of right lower extremity ([facility] V24, [facility] V28) Hyperlipidemia, unspecified Vitamin D deficiency, unspecified Type 2 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, left eye ([facility] V24, [facility] V28) documented in this encounter Care Teams Control Operator Flow Coat Relationship Specialty Start Date End Date Jeramie Schwartz MD [address] [place] [address] Dr [address] [place], [place] PCP - General Internal Medicine 06/02/24 documented as of this encounter
[2024-10-07 12:33] LABS: Appearance Urine Clear; Color Urine Yellow; Glucose Urine UA Negative (Negative); Leukocyte Esterase Urine Negative (Negative); Nitrite Urine Negative (Negative); Specific Gravity - Urine 1.015 (1.005-1.025); Urine Blood Negative (Negative); Urine Ketones Negative (Negative); Urine Protein Negative (Neg-Trace)
[2024-10-07 12:48] LABS: Alanine Aminotransferase 17 U/L (0-40); Albumin Level 3.5 g/dL (3.5-5.0); Anion Gap 17 (12-20); Aspartate Amino Transferase 36 U/L (5-37); Bilirubin Direct 0.1 mg/dL (0.0-0.5); Bilirubin Total 0.3 mg/dL (0.0-1.0); Blood Urea Nitrogen 26 mg/dL (9-16); Calcium 9.1 mg/dL (8.4-10.2); Carbon Dioxide 24 mmol/L (22-29); Chloride 108 mmol/L (96-108); Creatinine Clr Calc Pharmacy 43.8; Estimated Glomerular Filt Rate 42; Glucose Random 90 mg/dL (60-115); Lipase 14 U/L (8-78); Magnesium 2.1 mg/dL (1.6-2.6); Potassium 4.9 mmol/L (3.3-5.1); Sodium 144 mmol/L (135-145); Total Protein 7.2 g/dL (6.5-8.0)
[2024-10-07 12:55] LABS: Alkaline Phosphatase 74 U/L (39-117)
--- NOTE | 2024-10-07 16:01 | PHA.MEDREC ---
Addendum entered by Betzy Craig RPh 10/07/24 16:46: Reviewed by everett Original Note: Pharmacy Consult ? Medication Reconciliation Pharmacy has completed the medication reconciliation. Utilized [facility] with list from [facility] at [facility].
--- NOTE | 2024-10-07 16:05 | PM.IMHP ---
History of Present Illness Date of Service: 10/07/24 Chief Complaint: ams 69M PMH TBI, DVT, hyperlipidemia, psychotic disorder, epilepsy, achalasia, hypertension [facility] for reports of fevers, altered mental status. Patient himself denies any symptoms. But is a poor historian. In ED noted to have acute kidney injury, mildly hypotensive, leukocytosis, bilateral opacities lower lobes on CT, incidentally noted on CT to have question of rectal neoplasm. Review of Systems Review of Systems: Yes all other systems are reviewed and are negative [facility] Medical History Psychotic disorder Hyperlipidemia DVT (deep venous thrombosis) Epilepsy Diabetes mellitus Hypertension TBI (traumatic brain injury) Social History Unable to assess alcohol history related to: Unknown Patient Tobacco Use Status: Tobacco use Unknown Advance Directives: Yes Advance Directives on File: Yes Advance Directives Date on File: 08/23/23 Meds Allergies Allergy/AdvReac Type Severity Reaction Status Date / Time No Known Drug Allergies Allergy Unknown none Verified 10/07/24 10:57 Active Medications: Current Medications Acetaminophen (Acetaminophen 325 Mg Tablet) 650 mg PO Q6H PRN PRN Reason: Pain, Mild 1-3,fever,headache Ascorbic Acid (Ascorbic Acid 500 Mg Tablet) 500 mg PO DAILY [facility] Benztropine Mesylate (Benztropine Mesylate 0.5 Mg Tablet) 0.5 mg PO BID [facility] Calcium Carbonate (Calcium Carbonate 750 Mg Tab.Chew) 750 mg PO Q4H PRN PRN Reason: Heartburn Fluphenazine HCl (Fluphenazine Hcl 5 Mg Tablet) 10 mg PO BID [facility] Ampicillin Sodium/Sulbactam (Sodium 1.5 gm/ Sodium Chloride) 100 mls @ 200 mls/hr IV Q8H [facility] Magnesium Hydroxide (Milk Of Magnesia 30 Ml Oral.Susp) 30 ml PO DAILY PRN PRN Reason: Constipation Melatonin (Melatonin 3 Mg Tablet) 6 mg PO BEDTIME PRN PRN Reason: Insomnia Non-Formulary Medication (Ferrous Sulfate) 325 mg PO DAILY [facility] Non-Formulary Medication (Levetiracetam) 1,500 mg PO DAILY [facility] Sodium Chloride (0.9 % Sodium Chloride Flush 3 Ml Syringe) 3 ml IVFLUSH QSHIFT [facility] Vitamin D (Cholecalciferol (Vitamin D3) 25 Mcg Tablet) 25 mcg PO DAILY [facility] Home Medications ?Medication ?Instructions ?Recorded ?Confirmed ?Last Taken ?Type aluminum-mag hydroxide-simethicone 5 ml PO QID PRN Heartburn 05/25/24 10/07/24 Unknown History 400 mg-400 mg-40 mg/5 mL oral susp (Mylanta Maximum Strength) benztropine 0.5 mg tablet 0.5 mg PO BID 05/25/24 10/07/24 Unknown History cholecalciferol (vitamin D3) 25 25 mcg PO DAILY 05/25/24 10/07/24 Unknown History mcg (1,000 unit) capsule fluphenazine HCl 10 mg tablet 10 mg PO BID 05/25/24 10/07/24 Unknown History glucagon 1 mg solution for 1 mg subcut Q20M PRN Sever 05/25/24 10/07/24 Unknown History injection Hypoglycemia metoprolol succinate 25 mg 25 mg PO DAILY 05/25/24 10/07/24 Unknown History tablet,extended release 24 hr olanzapine 10 mg tablet 10 mg PO DAILY 05/25/24 10/07/24 Unknown History pregabalin 100 mg capsule (Lyrica) 100 mg PO BID 05/25/24 10/07/24 Unknown History sennosides 8.6 mg capsule (senna) 8.6 mg PO BEDTIME 05/25/24 10/07/24 Unknown History acetaminophen 325 mg tablet 650 mg PO Q6H PRN Fever Or Pain 10/07/24 10/07/24 Unknown History ascorbic acid (vitamin C) 500 mg 500 mg PO DAILY 10/07/24 10/07/24 Unknown History tablet ferrous sulfate 325 mg (65 mg 325 mg PO DAILY 10/07/24 10/07/24 Unknown History iron) tablet guaifenesin 100 mg/5 mL oral 200 mg PO Q4H PRN Cough 10/07/24 10/07/24 Unknown History liquid (Etta-Tussin) levetiracetam 750 mg 1,500 mg PO DAILY 10/07/24 10/07/24 Unknown History tablet,extended release 24 hr lorazepam 2 mg/mL injection syringe 1 mg IV Q1H PRN Acute Agitation 10/07/24 10/07/24 Unknown History omeprazole 20 mg tablet,delayed 40 mg PO BID@0630,1630 10/07/24 10/07/24 Unknown History release sennosides 8.6 mg tablet (senna) 8.6 mg PO DAILY PRN Constipation 10/07/24 10/07/24 Unknown History sodium phosphates 19 gram-7 118 ml [place] DAILY PRN Constipation 10/07/24 10/07/24 Unknown History gram/118 mL enema (Fleet Enema) Physical Exam Vital Signs and Narrative: Vital Signs: Last Vital Signs Temp 98.1 F 10/07/24 14:19 Pulse 52 10/07/24 14:19 Resp 13 10/07/24 14:19 BP 109/55 L 10/07/24 14:19 Pulse Ox 94 10/07/24 14:19 O2 Del Method Nasal Cannula 10/07/24 14:19 O2 Flow Rate 2 10/07/24 14:19 BMI result Body Mass Index 24.[address] and year, no acute distress, lungs with bilateral rhonchi, abdomen soft and nondistended, no edema Results Labs 10/07/24 11:27 10/07/24 12:13 Labs: Laboratory Results - last 24 hr 10/07/24 10/07/24 10/07/24 10:49 11:12 11:27 MCV 79.9 L MCH 26.0 L MCHC 32.5 RDW 16.2 H Plt Count 182 D MPV Not Reportable Immature Gran % (Auto) Cancelled Neut % (Auto) Cancelled Lymph % (Auto) Cancelled [place] % (Auto) Cancelled Eos % (Auto) Cancelled Baso % (Auto) Cancelled Lymph # (Auto) Cancelled [place] # (Auto) Cancelled Eos # (Auto) Cancelled Baso # (Auto) Cancelled Abs Immat Gran (auto) Cancelled Absolute Neuts (auto) Cancelled Absolute Nucleated RBC 0.000 Nucleated RBC % (auto) 0.0 Neutrophils % (Manual) 77 H Band Neutrophils % 15 H Lymphocytes % (Manual) 4 L Atypical Lymphs % (Man) 1 Monocytes % (Manual) 3 Eosinophils % (Manual) 1 Promyelocytes % 1 Abs Neuts (Manual) 13.2 H Lymphocytes # (Manual) 0.6 L Atyp Lymphs # (Manual) 0.1 Monocytes # (Manual) 0.4 Eosinophils # (Manual) 0.1 Promyelocytes # 0.1 Toxic Vacuolation PRESENT Platelet Estimate NORMAL Plt Morphology Comment NORMAL RBC Morphology NOTED Ovalocytes 1+ (5-14) PT 12.5 H INR 1.1 APTT 26.0 D VBG pH VBG pCO2 VBG pO2 VBG HCO3 VBG O2 Saturation VBG Base Excess Anion Gap Estim Creat Clear Calc Estimated GFR POC Glucose 115 Random Glucose Lactic Acid 2.0 Calcium Magnesium Total Bilirubin Direct Bilirubin AST ALT Alkaline Phosphatase Ammonia 28 Total Protein Albumin Lipase Urine Color Urine Appearance Urine pH Ur Specific [place] Urine Protein Urine Glucose (UA) Urine Ketones Urine Blood Urine Nitrite Ur Leukocyte Esterase Influenza Type A (PCR) NEGATIVE Influenza Type B (PCR) NEGATIVE RSV RNA Qual (PCR) NEGATIVE SARS-CoV-2 RNA (RT-PCR) NEGATIVE 10/07/24 10/07/24 10/07/24 11:32 12:13 12:26 MCV MCH MCHC RDW Plt Count MPV Immature Gran % (Auto) Neut % (Auto) Lymph % (Auto) [place] % (Auto) Eos % (Auto) Baso % (Auto) Lymph # (Auto) [place] # (Auto) Eos # (Auto) Baso # (Auto) Abs Immat Gran (auto) Absolute Neuts (auto) Absolute Nucleated RBC Nucleated RBC % (auto) Neutrophils % (Manual) Band Neutrophils % Lymphocytes % (Manual) Atypical Lymphs % (Man) Monocytes % (Manual) Eosinophils % (Manual) Promyelocytes % Abs Neuts (Manual) Lymphocytes # (Manual) Atyp Lymphs # (Manual) Monocytes # (Manual) Eosinophils # (Manual) Promyelocytes # Toxic Vacuolation Platelet Estimate Plt Morphology Comment RBC Morphology Ovalocytes PT INR APTT VBG pH 7.47 H VBG pCO2 36 VBG pO2 67 VBG HCO3 26 VBG O2 Saturation 90.0 VBG Base Excess 3.5 Anion Gap 17 Estim Creat Clear Calc 43.8 Estimated GFR 42 POC Glucose Random Glucose 90 Lactic Acid Calcium 9.1 D Magnesium 2.1 Total Bilirubin 0.3 Direct Bilirubin 0.1 AST 36 ALT 17 Alkaline Phosphatase 74 Ammonia Total Protein 7.2 Albumin 3.5 Lipase 14 Urine Color Yellow Urine Appearance Clear Urine pH 6.0 Ur Specific [place] 1.015 Urine Protein Negative Urine Glucose (UA) Negative Urine Ketones Negative Urine Blood Negative Urine Nitrite Negative Ur Leukocyte Esterase Negative Influenza Type A (PCR) Influenza Type B (PCR) RSV RNA Qual (PCR) SARS-CoV-2 RNA (RT-PCR) Imaging Radiologist's Impressions: Impressions Chest X-Ray 10/07/24 11:30 IMPRESSION: Low lung volumes, limiting evaluation. Possible mild pulmonary vascular congestion. Electronically signed by: Santos Claros MD 10/07/2024 01:02 PM EDT RP Head CT 10/07/24 13:27 IMPRESSION: No acute intracranial abnormality. Stable falx calcification versus small chronically calcified meningioma. Electronically signed by: Kyle Soares MD 10/07/2024 02:22 PM EDT RP Abdomen/Pelvis CT 10/07/24 13:48 IMPRESSION: 1. Bilateral lower lobe pneumonia. Follow-up is recommended to document resolution. 2. Large amount of stool throughout the colon and rectum. Mild rectal wall thickening. Sigmoidoscopy is recommended to exclude neoplasm. 3. Mild prominence of the bilateral renal collecting systems which may be secondary to a full urinary bladder. Electronically signed by: Santos Claros MD 10/07/2024 02:22 PM EDT RP Assessment and Plan (1) Pneumonia of both lower lobes: Qualifiers: Pneumonia type: due to unspecified organism Qualified Code(s): J18.9 - Pneumonia, unspecified organism Status: Acute Plan 69M PMH TBI, DVT, hyperlipidemia, psychotic disorder, epilepsy, achalasia, hypertension presented [facility] for reports of fevers, altered mental status Acute metabolic encephalopathy, leukocytosis due to suspected aspiration pneumonia Unasyn, speech and GI eval Follow up cultures NPO for now Acute kidney injury IV fluids, monitor History of DVT Does not appear to be on Xarelto any longer Psychotic disorder Continue Zyprexa Fluphenazine Seizure disorder Continue Keppra Hypertension Toprol Due to prophylaxis-Lovenox Full Code Quality Stroke Does the patient have a stroke diagnosis?: No VTE Prior VTE?: Yes VTE Risk Level:: Medical - moderate - high VTE Device Contraindication: Treatment Not Indicated VTE Drug Contraindication: N/A - Med Ordered
[2024-10-07] MEDS: Ampicillin Sodium/Sulbactam Na 1.5 GM in 0.9 % Sodium Chloride 100 ML IV (16:24)
[2024-10-07] MEDS: Lactated Ringers 1,000 ML 80 ML IVCONT (16:34)
[2024-10-07 17:02] LABS: Estimated Average Glucose 108 mg/dL; Hemoglobin A1C 115.0109 umol/L; Hemoglobin A1c % 5.4 % (<6.0); Total Hemoglobin (HGBA1C) 3241.9397 umol/L
[2024-10-07] MEDS: Omeprazole 40 MG CAPSULE.DR PO (18:58)
--- NOTE | 2024-10-07 19:51 | MHC.EDTECH ---
Pt has 2 episodes of small amount of diarrhea. Pt cleaned and bedding changed. RN aware
[2024-10-07] MEDS: Benztropine Mesylate 0.5 MG TABLET PO (21:56)
[2024-10-07] MEDS: fluPHENAZine HCl 5 MG TABLET PO (21:56)
[2024-10-07] MEDS: Pregabalin 150 MG CAPSULE 300 MG PO (21:56)
[2024-10-07] MEDS: Acetaminophen 325 MG TABLET 650 MG PO (21:56)
[2024-10-08] MEDS: Ampicillin Sodium/Sulbactam Na 1.5 GM in 0.9 % Sodium Chloride 100 ML IV ×3 (02:45→17:15)
[2024-10-08 06:11] VITALS: BP 134/74; PULSE 54; RESP 18; TEMP 36.2; O2SAT 97
[2024-10-08 06:13] LABS: Hematocrit 34.2 % (42.0-52.0); Hemoglobin 11.1 g/dl (14.0-18.0); Mean Corpuscular HGB Conc 32.5 g/dl (31.0-36.0); Mean Corpuscular Hemoglobin 26.1 pg (27.0-33.0); Mean Corpuscular Volume 80.3 fL (80.0-98.0); Platelet Count 157 X10*3/uL (160-400); Red Blood Count 4.26 X10*6/uL (4.60-5.80); Red Cell Distribution Width 16.6 % (11.0-16.0); White Blood Count 10.9 X10*3/uL (4.8-10.8)
[2024-10-08] MEDS: Lactated Ringers 1,000 ML 80 ML IVCONT ×2 (06:14→21:10)
[2024-10-08 06:18] LABS: Anion Gap 7 (12-20); Blood Urea Nitrogen 16 mg/dL (9-16); Calcium 8.2 mg/dL (8.4-10.2); Carbon Dioxide 26 mmol/L (22-29); Chloride 115 mmol/L (96-108); Creatinine Clr Calc Pharmacy 74.2; Estimated Glomerular Filt Rate > 60; Glucose Random 96 mg/dL (60-115); Magnesium 2.1 mg/dL (1.6-2.6); Potassium 4.1 mmol/L (3.3-5.1); Sodium 144 mmol/L (135-145)
[2024-10-08 07:33] VITALS: BP 156/85; PULSE 68; RESP 18; TEMP 36.2; O2SAT 98
[2024-10-08] MEDS: Cholecalciferol (Vitamin D3) 25 MCG TABLET PO (08:46)
[2024-10-08] MEDS: Pregabalin 150 MG CAPSULE 300 MG PO ×2 (08:46→21:10)
[2024-10-08] MEDS: Benztropine Mesylate 0.5 MG TABLET PO ×2 (08:46→21:10)
[2024-10-08] MEDS: Enoxaparin Sodium 40 MG/0.4 ML SYRINGE SUBCUT (08:46)
[2024-10-08] MEDS: fluPHENAZine HCl 5 MG TABLET PO ×2 (08:46→21:10)
[2024-10-08] MEDS: OLANZapine 10 MG TABLET PO (08:46)
[2024-10-08] MEDS: Ferrous Sulfate 324 MG TABLET.DR PO (08:47)
[2024-10-08] MEDS: Metoprolol Succinate ER 25 MG TAB.ER.24H PO (08:47)
[2024-10-08] MEDS: Ascorbic Acid 500 MG TABLET PO (08:47)
--- NOTE | 2024-10-08 09:02 | PM.GICN ---
History of Present Illness Data of Consult Service Date: 10/08/24 Requesting physician: Bruce Chow Primary Care Provider: Jeramie Schwartz DO HPI Reason for consult: ? rectal mass PMFSH Past Medical History Medical History Psychotic disorder Hyperlipidemia DVT (deep venous thrombosis) Epilepsy Diabetes mellitus Hypertension TBI (traumatic brain injury) Social History Social History Household Members: Other Housing: Shelter Do you presently have visiting nurse or other home services: No Unable to assess alcohol history related to: Unknown Patient Tobacco Use Status: Tobacco use Unknown Advance Directives Date on File: 08/23/23 Meds Allergies Allergy/AdvReac Type Severity Reaction Status Date / Time No Known Drug Allergies Allergy Unknown none Verified 10/07/24 10:57 Active Medications: Current Medications Acetaminophen (Acetaminophen 325 Mg Tablet) 650 mg PO Q6H PRN PRN Reason: Pain, Mild 1-3,fever,headache Last Admin: 10/07/24 21:56 Dose: 650 mg Ascorbic Acid (Ascorbic Acid 500 Mg Tablet) 500 mg PO DAILY [facility] Benztropine Mesylate (Benztropine Mesylate 0.5 Mg Tablet) 0.5 mg PO BID [facility] Last Admin: 10/07/24 21:56 Dose: 0.5 mg Calcium Carbonate (Calcium Carbonate 750 Mg Tab.Chew) 750 mg PO Q4H PRN PRN Reason: Heartburn Enoxaparin Sodium (Enoxaparin Sodium 40 Mg/0.4 Ml Syringe) 40 mg SUBCUT Q24H [facility] Ferrous Sulfate (Ferrous Sulfate 324 Mg Tablet.Dr) 324 mg PO DAILY [facility] Fluphenazine HCl (Fluphenazine Hcl 5 Mg Tablet) 5 mg PO BID [facility] Last Admin: 10/07/24 21:56 Dose: 5 mg Ampicillin Sodium/Sulbactam (Sodium 1.5 gm/ Sodium Chloride) 100 mls @ 200 mls/hr IV Q8H [facility] Last Infusion: 10/08/24 03:15 Dose: Infused Lactated Ringer's (Lr) 1,000 mls @ 80 mls/hr IVCONT .[id number] [facility] Last Admin: 10/08/24 06:14 Dose: 80 mls/hr Levetiracetam (Levetiracetam 500 Mg Tablet) 1,500 mg PO BID [facility] Magnesium Hydroxide (Milk Of Magnesia 30 Ml Oral.Susp) 30 ml PO DAILY PRN PRN Reason: Constipation Melatonin (Melatonin 3 Mg Tablet) 6 mg PO BEDTIME PRN PRN Reason: Insomnia Metoprolol Succinate (Metoprolol Succinate Er 25 Mg Tab.Er.24h) 25 mg PO DAILY [facility]; Protocol Olanzapine (Olanzapine 10 Mg Tablet) 10 mg PO DAILY [facility] Omeprazole (Omeprazole 40 Mg Capsule.Dr) 40 mg PO BID@0630,1630 [facility] Last Admin: 10/08/24 06:15 Dose: Not Given Pregabalin (Pregabalin 150 Mg Capsule) 300 mg PO BID [facility] Last Admin: 10/07/24 21:56 Dose: 300 mg Sodium Biphosphate/Sodium Phosphate (Sodium Phosphate,Bibb-Dibasic 133 Ml Enema) 118 ml [place] DAILY PRN PRN Reason: Constipation Sodium Chloride (0.9 % Sodium Chloride Flush 3 Ml Syringe) 3 ml IVFLUSH QSHIFT [facility] Last Admin: 10/08/24 08:02 Dose: Not Given Vitamin D (Cholecalciferol (Vitamin D3) 25 Mcg Tablet) 25 mcg PO DAILY [facility] Home Medications ?Medication ?Instructions ?Recorded ?Confirmed ?Last Taken ?Type aluminum-mag hydroxide-simethicone 5 ml PO QID PRN Heartburn 05/25/24 10/07/24 Unknown History 400 mg-400 mg-40 mg/5 mL oral susp (Mylanta Maximum Strength) benztropine 0.5 mg tablet 0.5 mg PO BID 05/25/24 10/07/24 Unknown History cholecalciferol (vitamin D3) 25 25 mcg PO DAILY 05/25/24 10/07/24 Unknown History mcg (1,000 unit) capsule glucagon 1 mg solution for 1 mg subcut Q20M PRN Sever 05/25/24 10/07/24 Unknown History injection Hypoglycemia metoprolol succinate 25 mg 25 mg PO DAILY 05/25/24 10/07/24 Unknown History tablet,extended release 24 hr olanzapine 10 mg tablet 10 mg PO DAILY 05/25/24 10/07/24 Unknown History sennosides 8.6 mg capsule (senna) 8.6 mg PO BEDTIME 05/25/24 10/07/24 Unknown History acetaminophen 325 mg tablet 650 mg PO Q6H PRN Fever Or Pain 10/07/24 10/07/24 Unknown History ascorbic acid (vitamin C) 500 mg 500 mg PO DAILY 10/07/24 10/07/24 Unknown History tablet ferrous sulfate 325 mg (65 mg 325 mg PO DAILY 10/07/24 10/07/24 Unknown History iron) tablet fluphenazine HCl 5 mg tablet 5 mg PO BID 10/07/24 10/07/24 Unknown History guaifenesin 100 mg/5 mL oral 200 mg PO Q4H PRN Cough 10/07/24 10/07/24 Unknown History liquid (Etta-Tussin) levetiracetam 750 mg 1,500 mg PO BID 10/07/24 10/07/24 Unknown History tablet,extended release 24 hr lorazepam 2 mg/mL injection syringe 1 mg IV Q1H PRN Acute Agitation 10/07/24 10/07/24 Unknown History omeprazole 20 mg tablet,delayed 40 mg PO BID@0630,1630 10/07/24 10/07/24 Unknown History release pregabalin 300 mg capsule 300 mg PO BID 10/07/24 10/07/24 Unknown History sennosides 8.6 mg tablet (senna) 8.6 mg PO DAILY PRN Constipation 10/07/24 10/07/24 Unknown History sodium phosphates 19 gram-7 118 ml [place] DAILY PRN Constipation 10/07/24 10/07/24 Unknown History gram/118 mL enema (Fleet Enema) Physical Exam Vital Signs: Vital Signs: Last Vital Signs Temp 97.1 F 10/08/24 07:33 Pulse 68 10/08/24 07:33 Resp 18 10/08/24 07:33 BP 156/85 H 10/08/24 07:33 Pulse Ox 98 10/08/24 07:33 O2 Del Method Room Air 10/08/24 07:33 O2 Flow Rate 2 10/07/24 18:02 BMI result Body Mass Index 26.7 Results Labs 10/08/24 05:26 10/08/24 05:26 Labs: Short CBC 10/07/24 10/08/24 Range/Units 11:27 05:26 WBC 14.3 H 10.9 H (4.8-10.8) X10*3/uL Hgb 12.3 L D 11.1 L (14.0-18.0) g/dl Hct 37.8 L D 34.2 L (42.0-52.0) % Plt Count 182 D 157 L (160-400) X10*3/uL BMP 10/07/24 10/08/24 12:13 05:26 Sodium 144 144 Potassium 4.9 4.1 Chloride 108 115 H Carbon Dioxide 24 26 BUN 26 H 16 Creatinine 1.64 H 0.97 Calcium 9.1 D 8.2 L D Liver Function 10/07/24 Range/Units 12:13 Total Bilirubin 0.3 (0.0-1.0) mg/dL Direct Bilirubin 0.1 (0.0-0.5) mg/dL AST 36 (5-37) U/L ALT 17 (0-40) U/L Alkaline Phosphatase 74 (39-117) U/L Albumin 3.5 (3.5-5.0) g/dL Urine 10/07/24 Range/Units 12:26 Urine Color Yellow Urine Appearance Clear Urine pH 6.0 (5.0-9.0) Ur Specific [place] 1.015 (1.005-1.025) Urine Protein Negative (Neg-Trace) mg/dL Urine Glucose (UA) Negative (Negative) mg/dL Procedures Date of Service Date of Service: 10/08/24
--- NOTE | 2024-10-08 10:25 | P.PNIM_ITS ---
Subjective Subjective Date of Service: 10/08/24 Interval History: no complaints Physical Exam 2 Vital Signs: Vital Signs: Last Vital Signs Temp 97.1 F 10/08/24 07:33 Pulse 68 10/08/24 07:33 Resp 18 10/08/24 07:33 BP 156/85 H 10/08/24 07:33 Pulse Ox 98 10/08/24 07:33 O2 Del Method Room Air 10/08/24 07:33 O2 Flow Rate 2 10/07/24 18:02 BMI result Body Mass Index 26.7 [address] oriented person and place and year, no acute distress, lungs with bilateral rhonchi, abdomen soft and nondistended, no edema Objective Data Active Medications Acetaminophen (Acetaminophen 325 Mg Tablet) 650 mg PO Q6H PRN PRN Reason: Pain, Mild 1-3,fever,headache Last Admin: 10/07/24 21:56 Dose: 650 mg Documented By: PAOLA Ascorbic Acid (Ascorbic Acid 500 Mg Tablet) 500 mg PO DAILY [facility] Last Admin: 10/08/24 08:47 Dose: 500 mg Documented By: MICHELL Benztropine Mesylate (Benztropine Mesylate 0.5 Mg Tablet) 0.5 mg PO BID [facility] Last Admin: 10/08/24 08:46 Dose: 0.5 mg Documented By: MICHELL Calcium Carbonate (Calcium Carbonate 750 Mg Tab.Chew) 750 mg PO Q4H PRN PRN Reason: Heartburn Enoxaparin Sodium (Enoxaparin Sodium 40 Mg/0.4 Ml Syringe) 40 mg SUBCUT Q24H [facility] Last Admin: 10/08/24 08:46 Dose: 40 mg Documented By: MICHELL Ferrous Sulfate (Ferrous Sulfate 324 Mg Tablet.Dr) 324 mg PO DAILY [facility] Last Admin: 10/08/24 08:47 Dose: 324 mg Documented By: MICHELL Fluphenazine HCl (Fluphenazine Hcl 5 Mg Tablet) 5 mg PO BID [facility] Last Admin: 10/08/24 08:46 Dose: 5 mg Documented By: MICHELL Ampicillin Sodium/Sulbactam (Sodium 1.5 gm/ Sodium Chloride) 100 mls @ 200 mls/hr IV Q8H [facility] Last Infusion: 10/08/24 09:43 Dose: Infused Documented By: MICHELL Lactated Ringer's (Lr) 1,000 mls @ 80 mls/hr IVCONT .[id number] [facility] Last Admin: 10/08/24 06:14 Dose: 80 mls/hr Documented By: PAOLA Levetiracetam (Levetiracetam 500 Mg Tablet) 1,500 mg PO BID [facility] Magnesium Hydroxide (Milk Of Magnesia 30 Ml Oral.Susp) 30 ml PO DAILY PRN PRN Reason: Constipation Melatonin (Melatonin 3 Mg Tablet) 6 mg PO BEDTIME PRN PRN Reason: Insomnia Metoprolol Succinate (Metoprolol Succinate Er 25 Mg Tab.Er.24h) 25 mg PO DAILY [facility]; Protocol Last Admin: 10/08/24 08:47 Dose: 25 mg Documented By: MICHELL Olanzapine (Olanzapine 10 Mg Tablet) 10 mg PO DAILY [facility] Last Admin: 10/08/24 08:46 Dose: 10 mg Documented By: MICHELL Omeprazole (Omeprazole 40 Mg Capsule.Dr) 40 mg PO BID@0630,1630 [facility] Last Admin: 10/08/24 06:15 Dose: Not Given Documented By: PAOLA Non-Admin Reason: NPO Pregabalin (Pregabalin 150 Mg Capsule) 300 mg PO BID [facility] Last Admin: 10/08/24 08:46 Dose: 300 mg Documented By: MICHELL Sodium Biphosphate/Sodium Phosphate (Sodium Phosphate,[place]-Dibasic 133 Ml Enema) 118 ml DE DAILY PRN PRN Reason: Constipation Sodium Chloride (0.9 % Sodium Chloride Flush 3 Ml Syringe) 3 ml IVFLUSH QSHIFT [facility] Last Admin: 10/08/24 08:02 Dose: Not Given Documented By: MICHELL Non-Admin Reason: IV Running Vitamin D (Cholecalciferol (Vitamin D3) 25 Mcg Tablet) 25 mcg PO DAILY [facility] Last Admin: 10/08/24 08:46 Dose: 25 mcg Documented By: MICHELL Labs 10/08/24 05:26 10/08/24 05:26 Labs: Laboratory Results - last 24 hr 10/07/24 10/07/24 10/07/24 10:49 11:12 11:27 MCV 79.9 L MCH 26.0 L MCHC 32.5 RDW 16.2 H Plt Count 182 D MPV Not Reportable Immature Gran % (Auto) Cancelled Neut % (Auto) Cancelled Lymph % (Auto) Cancelled [place] % (Auto) Cancelled Eos % (Auto) Cancelled Baso % (Auto) Cancelled Lymph # (Auto) Cancelled [place] # (Auto) Cancelled Eos # (Auto) Cancelled Baso # (Auto) Cancelled Abs Immat Gran (auto) Cancelled Absolute Neuts (auto) Cancelled Absolute Nucleated RBC 0.000 Nucleated RBC % (auto) 0.0 Neutrophils % (Manual) 77 H Band Neutrophils % 15 H Lymphocytes % (Manual) 4 L Atypical Lymphs % (Man) 1 Monocytes % (Manual) 3 Eosinophils % (Manual) 1 Promyelocytes % 1 Abs Neuts (Manual) 13.2 H Lymphocytes # (Manual) 0.6 L Atyp Lymphs # (Manual) 0.1 Monocytes # (Manual) 0.4 Eosinophils # (Manual) 0.1 Promyelocytes # 0.1 Toxic Vacuolation PRESENT Platelet Estimate NORMAL Plt Morphology Comment NORMAL RBC Morphology NOTED Ovalocytes 1+ (5-14) PT 12.5 H INR 1.1 APTT 26.0 D VBG pH VBG pCO2 VBG pO2 VBG HCO3 VBG O2 Saturation VBG Base Excess Anion Gap Estim Creat Clear Calc Estimated GFR POC Glucose 115 Random Glucose Estimat Average Glucose 108 Hemoglobin A1c % 5.4 Lactic Acid 2.0 Calcium Magnesium Total Bilirubin Direct Bilirubin AST ALT Alkaline Phosphatase Ammonia 28 Total Protein Albumin Lipase Urine Color Urine Appearance Urine pH Ur Specific [place] Urine Protein Urine Glucose (UA) Urine Ketones Urine Blood Urine Nitrite Ur Leukocyte Esterase Influenza Type A (PCR) NEGATIVE Influenza Type B (PCR) NEGATIVE RSV RNA Qual (PCR) NEGATIVE SARS-CoV-2 RNA (RT-PCR) NEGATIVE 10/07/24 10/07/24 10/07/24 11:32 12:13 12:26 MCV MCH MCHC RDW Plt Count MPV Immature Gran % (Auto) Neut % (Auto) Lymph % (Auto) [place] % (Auto) Eos % (Auto) Baso % (Auto) Lymph # (Auto) [place] # (Auto) Eos # (Auto) Baso # (Auto) Abs Immat Gran (auto) Absolute Neuts (auto) Absolute Nucleated RBC Nucleated RBC % (auto) Neutrophils % (Manual) Band Neutrophils % Lymphocytes % (Manual) Atypical Lymphs % (Man) Monocytes % (Manual) Eosinophils % (Manual) Promyelocytes % Abs Neuts (Manual) Lymphocytes # (Manual) Atyp Lymphs # (Manual) Monocytes # (Manual) Eosinophils # (Manual) Promyelocytes # Toxic Vacuolation Platelet Estimate Plt Morphology Comment RBC Morphology Ovalocytes PT INR APTT VBG pH 7.47 H VBG pCO2 36 VBG pO2 67 VBG HCO3 26 VBG O2 Saturation 90.0 VBG Base Excess 3.5 Anion Gap 17 Estim Creat Clear Calc 43.8 Estimated GFR 42 POC Glucose Random Glucose 90 Estimat Average Glucose Hemoglobin A1c % Lactic Acid Calcium 9.1 D Magnesium 2.1 Total Bilirubin 0.3 Direct Bilirubin 0.1 AST 36 ALT 17 Alkaline Phosphatase 74 Ammonia Total Protein 7.2 Albumin 3.5 Lipase 14 Urine Color Yellow Urine Appearance Clear Urine pH 6.0 Ur Specific [place] 1.015 Urine Protein Negative Urine Glucose (UA) Negative Urine Ketones Negative Urine Blood Negative Urine Nitrite Negative Ur Leukocyte Esterase Negative Influenza Type A (PCR) Influenza Type B (PCR) RSV RNA Qual (PCR) SARS-CoV-2 RNA (RT-PCR) 10/08/24 05:26 MCV 80.3 MCH 26.1 L MCHC 32.5 RDW 16.6 H Plt Count 157 L MPV TNP Immature Gran % (Auto) Neut % (Auto) Lymph % (Auto) [place] % (Auto) Eos % (Auto) Baso % (Auto) Lymph # (Auto) [place] # (Auto) Eos # (Auto) Baso # (Auto) Abs Immat Gran (auto) Absolute Neuts (auto) Absolute Nucleated RBC 0.000 Nucleated RBC % (auto) 0.0 Neutrophils % (Manual) Band Neutrophils % Lymphocytes % (Manual) Atypical Lymphs % (Man) Monocytes % (Manual) Eosinophils % (Manual) Promyelocytes % Abs Neuts (Manual) Lymphocytes # (Manual) Atyp Lymphs # (Manual) Monocytes # (Manual) Eosinophils # (Manual) Promyelocytes # Toxic Vacuolation Platelet Estimate Plt Morphology Comment RBC Morphology Ovalocytes PT INR APTT VBG pH VBG pCO2 VBG pO2 VBG HCO3 VBG O2 Saturation VBG Base Excess Anion Gap 7 L Estim Creat Clear Calc 74.2 Estimated GFR > 60 POC Glucose Random Glucose 96 Estimat Average Glucose Hemoglobin A1c % Lactic Acid Calcium 8.2 L D Magnesium 2.1 Total Bilirubin Direct Bilirubin AST ALT Alkaline Phosphatase Ammonia Total Protein Albumin Lipase Urine Color Urine Appearance Urine pH Ur Specific [place] Urine Protein Urine Glucose (UA) Urine Ketones Urine Blood Urine Nitrite Ur Leukocyte Esterase Influenza Type A (PCR) Influenza Type B (PCR) RSV RNA Qual (PCR) SARS-CoV-2 RNA (RT-PCR) Assessment and Plan (1) Pneumonia of both lower lobes: Status: Acute Plan 69M PMH TBI, DVT, hyperlipidemia, psychotic disorder, epilepsy, achalasia, hypertension presented from [facility] for reports of fevers, altered mental status Acute metabolic encephalopathy, leukocytosis due to suspected aspiration pneumonia Unasyn, speech appreciated - ndd3, thins GI eval Follow up cultures Acute kidney injury IV fluids, resolved History of DVT Does not appear to be on Xarelto any longer Psychotic disorder Continue Zyprexa Fluphenazine Seizure disorder Continue Keppra Hypertension Toprol Due to prophylaxis-Lovenox Full Code reason for continued hospitalization:working up dysphagia Quality Stroke Does the patient have a stroke diagnosis?: No VTE Prior VTE?: Yes VTE Risk Level:: Medical - moderate - high VTE Device Contraindication: Treatment Not Indicated VTE Drug Contraindication: N/A - Med Ordered
--- NOTE | 2024-10-08 12:44 | MHC.CM.PN ---
Patient comes from LT @ [facility] [place]. Per face sheet, family member Tayler is guardian. Attempted to call Tayler, voicemail box not set up. Copy of guardianship requested from [facility]. PCP Jeramie Schwartz DO IMM delivered. DP: Return to [facility] via BLS. CM will continue to follow.
[2024-10-08 15:17] VITALS: BP 145/78; PULSE 59; RESP 18; TEMP 36.1; O2SAT 97
[2024-10-08] MEDS: Omeprazole 40 MG CAPSULE.DR PO (17:15)
[2024-10-08] MEDS: 0.9 % Sodium Chloride Flush 3 ML SYRINGE IVFLUSH (17:16)
--- NOTE | 2024-10-08 18:24 | MHC.SL.SWA ---
Speech Pathologist Impression: Risk of Aspiration Due to: Confusion/impulsivity Dysphasia Diet Status: Liquid Consistency and Strategies for Safe Swallow: Liquid Intake Recommendation: Thin Liquid Intake Strategies: Solid Food Consistency: Dietary Recommendations: Chopped/Advanced (NDD3) Additional Modifications to Solid Foods: Oral Medication Intake: Whole with Puree Please contact the pharmacy regarding appropriate crushable or liquid drug formulations that are available whenever modified delivery is recommended. Compensatory Strategies and Precautions to be Taken for Safe Swallow: Supervision While Eating and Drinking for Safe Swallow: Direct Supervision (1:1) Foods to Avoid: Too large pieces of food, tough, difficult to chew solids. Swallowing Recommended Treatments: Recommendation for Speech: Inpatient Speech Therapy Comment: Patient presents with risk of aspiration primarily secondary to level of confusion and impulsivity. Swallow is disorganized as patient presents with odd/confused responses when presented with food, however oral and pharyngeal phases of swallow mostly WFL. Recommend UPGRADE diet to Chopped/Advanced (NDD3), THIN lquids, pills whole in puree. Patient will require direct supervision with assistance as needed at all meals, due to level of confusion. MD/RD notified by secure text, RN in person. [employer] will continue to follow for toleration of recommended diet. Frequency/Duration: Date Range for Service Req: Timeline to reassess: Rotary Saw Operator Clinican/Clinical Fellow: No Supervisory Statement: I have reviewed and agree with the student/clinical fellow's documentation: N/A Speech Language Pathologist: Ana Hartmann M.A., [facility]-[employer]
[2024-10-08 19:11] VITALS: BP 132/66; PULSE 55; RESP 18; TEMP 36.2; O2SAT 97
[2024-10-08] MEDS: levETIRAcetam 500 MG TABLET 1500 MG PO (21:10)
[2024-10-09] MEDS: Ampicillin Sodium/Sulbactam Na 1.5 GM in 0.9 % Sodium Chloride 100 ML IV ×2 (01:24→08:55)
[2024-10-09 03:42] VITALS: BP 171/73; PULSE 57; RESP 16; TEMP 36.1; O2SAT 96
[2024-10-09 06:36] LABS: Anion Gap 8 (12-20); Blood Urea Nitrogen 10 mg/dL (9-16); Calcium 8.7 mg/dL (8.4-10.2); Carbon Dioxide 28 mmol/L (22-29); Chloride 113 mmol/L (96-108); Creatinine Clr Calc Pharmacy 78.2; Estimated Glomerular Filt Rate > 60; Glucose Random 85 mg/dL (60-115); Potassium 4.1 mmol/L (3.3-5.1); Sodium 145 mmol/L (135-145)
[2024-10-09 06:38] LABS: Hematocrit 35.1 % (42.0-52.0); Hemoglobin 11.3 g/dl (14.0-18.0); Mean Corpuscular HGB Conc 32.2 g/dl (31.0-36.0); Mean Corpuscular Hemoglobin 26.2 pg (27.0-33.0); Mean Corpuscular Volume 81.3 fL (80.0-98.0); Platelet Count 160 X10*3/uL (160-400); Red Blood Count 4.32 X10*6/uL (4.60-5.80); Red Cell Distribution Width 16.5 % (11.0-16.0); White Blood Count 4.3 X10*3/uL (4.8-10.8)
[2024-10-09 07:44] VITALS: BP 176/88; PULSE 52; RESP 16; TEMP 36.1; O2SAT 98
[2024-10-09] MEDS: Pregabalin 150 MG CAPSULE 300 MG PO (08:57)
[2024-10-09] MEDS: fluPHENAZine HCl 5 MG TABLET PO (08:57)
[2024-10-09] MEDS: Ferrous Sulfate 324 MG TABLET.DR PO (08:57)
[2024-10-09] MEDS: levETIRAcetam 500 MG TABLET 1500 MG PO (08:57)
[2024-10-09] MEDS: Benztropine Mesylate 0.5 MG TABLET PO (08:57)
[2024-10-09] MEDS: Metoprolol Succinate ER 25 MG TAB.ER.24H PO (08:58)
[2024-10-09] MEDS: Ascorbic Acid 500 MG TABLET PO (08:58)
[2024-10-09] MEDS: OLANZapine 10 MG TABLET PO (08:58)
[2024-10-09] MEDS: Enoxaparin Sodium 40 MG/0.4 ML SYRINGE SUBCUT (08:58)
[2024-10-09] MEDS: Cholecalciferol (Vitamin D3) 25 MCG TABLET PO (08:58)
--- NOTE | 2024-10-09 09:35 | P.DS_ITS ---
DS: Providers Provider Date of Service: 10/09/24 Date of admission: 10/07/24 15:44 Date of discharge: 10/09/24 Primary care physician: Jeramie Schwartz DO Consults: 10/07/24 15:52 Consult to Gastroenterology Routine Consulting Provider: Baljinder Good Reason for consultation: dyphagia, ?rectal mass DS: Diagnosis Discharge Diagnosis (1) Pneumonia of both lower lobes: Status: Acute DS: Summary Hospital Course Hospital Course: from initial hpi: 69M PMH TBI, DVT, hyperlipidemia, psychotic disorder, epilepsy, achalasia, hypertension presented from [facility] for reports of fevers, altered mental status. Patient himself denies any symptoms. But is a poor historian. In ED noted to have acute kidney injury, mildly hypotensive, leukocytosis, bilateral opacities lower lobes on CT, incidentally noted on CT to have question of rectal neoplasm. hospital course: Acute metabolic encephalopathy due to aspiration pneumonia. Was treated with Unasyn. Seen by speech who recommended ndd3 solids and thin liquids and monitoring for impulsive eating. For acute kidney injury was treated with IV fluids and resolved. For history of DVT does not appear to be on Xarelto any longer. For psychotic disorder was continued on Zyprexa and fluphenazine. For seizure disorder continue Keppra. For hypertension continue metoprolol. Patient is back to baseline will be discharged to [facility] on 5 more days of Augmentin. Time Attestation Discharge Coordination Time (in mins): 34 Quality: Safe Use of Opioids Does Pt have an Active Cancer Diagnosis on the Problem List?: No Quality: Stroke Does the patient have a stroke diagnosis?: No Physical Exam Vital Signs: Vital Signs: Last Vital Signs Temp 97.0 F 10/09/24 07:44 Pulse 52 10/09/24 07:44 Resp 16 10/09/24 07:44 BP 176/88 H 10/09/24 07:44 Pulse Ox 98 10/09/24 07:44 O2 Del Method Room Air 10/09/24 07:44 O2 Flow Rate 2 10/07/24 18:02 BMI result Body Mass Index 26.7 Alert oriented person and place and year, no acute distress, lungs cleari, abdomen soft and nondistended, no edema DS: Data Data Completed and Pending Labs on day of discharge: Laboratory Results - last 24 hr 10/09/24 05:38 WBC 4.3 L RBC 4.32 L Hgb 11.3 L Hct 35.1 L MCV 81.3 MCH 26.2 L MCHC 32.2 RDW 16.5 H Plt Count 160 MPV Not Reportable Absolute Nucleated RBC 0.000 Nucleated RBC % (auto) 0.0 Sodium 145 Potassium 4.1 Chloride 113 H Carbon Dioxide 28 Anion Gap 8 L BUN 10 Creatinine 0.92 Estim Creat Clear Calc 78.2 Estimated GFR > 60 Random Glucose 85 Calcium 8.7 D Preliminary micro results at discharge 10/07/24 11:27 Blood Culture - Preliminary Blood - Venous No growth after 24 hours. 10/07/24 11:13 Blood Culture - Preliminary Blood - Venous No growth after 24 hours. Discharge Plan Discharge Anticipated Discharge Date/Time: 10/09/24 09:30 Patient Disposition: Xfer [facility] Discharge Diagnosis: pna Referrals: Jeramie Schwartz DO [Primary Care Provider] - 1 Week Discharge Medications: New amoxicillin-pot clavulanate 875-125 mg tablet 1 tab PO BID Qty: 10 0RF Continued sennosides [senna] 8.6 mg Tablet 8.6 mg PO DAILY PRN (Reason: Constipation) acetaminophen 325 mg Tablet 650 mg PO Q6H PRN (Reason: Fever Or Pain) guaifenesin [Etta-Tussin] 100 mg/5 mL Liquid 200 mg PO Q4H PRN (Reason: Cough) ascorbic acid (vitamin C) 500 mg Tablet 500 mg PO DAILY ferrous sulfate 325 mg (65 mg iron) Tablet 325 mg PO DAILY lorazepam 2 mg/mL Syringe 1 mg IV Q1H PRN (Reason: Acute Agitation) omeprazole 20 mg Tablet,Delayed Release (Dr/Ec) 40 mg PO BID@0630,1630 levetiracetam 750 mg Tablet Extended Release 24 Hr 1,500 mg PO BID Fleet Enema 19-7 gram/118 mL enema 118 ml ID DAILY PRN (Reason: Constipation) fluphenazine HCl 5 mg Tablet 5 mg PO BID pregabalin 300 mg Capsule 300 mg PO BID benztropine 0.5 mg tablet 0.5 mg PO BID senna 8.6 mg capsule 8.6 mg PO BEDTIME cholecalciferol (vitamin D3) 25 mcg (1,000 unit) capsule 25 mcg PO DAILY olanzapine 10 mg tablet 10 mg PO DAILY alum-mag hydroxide-simeth [Mylanta Maximum Strength] 400-400-40 mg/5 mL suspension 5 ml PO QID PRN (Reason: Heartburn) glucagon 1 mg recon soln 1 mg subcut Q20M PRN (Reason: Sever Hypoglycemia) Rx Instructions: until target blood sugar attained metoprolol succinate 25 mg tablet extended release 24 hr 25 mg PO DAILY Discharge Orders: Discharge Order (Routine); Ordered 10/09/24 Ordered By: Bruce Chow Diet: ndd3 solids Activity on Discharge: As tolerated Stand Alone Forms: Patient Portal Discharge page Print Language: Emiratikaren Jimenez Care Plan Goals: recovery Health Concerns: aspiratoin pna Plan of Treatment: augmentin Assessment: see above
--- NOTE | 2024-10-09 10:19 | MHC.CM.PN ---
Patient medically cleared for dc back to LTC. Per RN, family member transported to facility.
--- NOTE | 2024-10-09 10:26 | MHC.CM.PN ---
Addendum entered by Jasmyn Madden RN 10/09/24 10:30: CM discussed dc w/ Tayler, guardian, via telephone. Agrees w/ plan. Sent second request to [facility] for copy of guardianship. Original Note: Per MD patient medically cleared for dc back to LTC. BLS transport scheduled for 11:30. RN aware.
--- NOTE | 2024-10-09 14:52 | PM.EVENT ---
Event Note Date of Service: 10/08/24 Event Note: Consult received 10/08/2024 for question of dysphagia and rectal wall thickening. Attempted to see patient at bedside, but was asleep, and did not want to be woken up for assessment. Discussed with the nurse as well. From review of barium swallow, appears dysphagia likely secondary to esophageal dysmotility. No stricture, web, ring noted on the barium swallow. Noncontrast CT scan with significant fecal loading on the left side. 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 Recommend bowel regimen. Enemas if needed. UPDATE 10/09 - pt discharged. Will notify outpatient GI to consider barium enema vs colonoscopy if not recently done. Time Spent With Patient Time: Total time managing care of this patient today ____ minutes.
== END 2024-10-09 10:12 | disposition intermediate care facility (04) | DRG 177 ==
LOC: HO.ED 14:55 → HO.S3 16:03 → HO.EDOVER 16:17 → HO.S3 19:14
PROVIDERS: Admitting Provider Student in an Organized Health Care Education/Training Program; Emergency Provider Emergency Medicine; PCP Hospitalist; Visit Provider Internal Medicine
DX: J69.0 Pneumonitis due to inhalation of food and vomit (principal); G93.41 Metabolic encephalopathy; N17.9 Acute kidney failure, unspecified; K22.4 Dyskinesia of esophagus; F29 Unspecified psychosis not due to a substance or known physiological condition; G40.909 Epilepsy, unspecified, not intractable, without status epilepticus; K62.89 Other specified diseases of anus and rectum; I10 Essential (primary) hypertension; Z20.822 Contact with and (suspected) exposure to COVID-19; Z86.718 Personal history of other venous thrombosis and embolism; Z79.899 Other long term (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
CPT/HCPCS: 0241U; 36415; 70450; 71045; 74176; 80048; 80076; 81003; 82140; 82803; 82947; 83036; 83605; 83690; 83735; 85007; 85025; 85027; 85610; 85730; 87040; 92526; 92610; 93005; 99285; J0295; J1650; J2543; J3370; J7120

== ENCOUNTER → 2024-10-07 11:00 | Outpatient (BNV) | payer MEDICARE, MEDICAID, SELFPAY | PROVIDERS: Admitting Provider Student in an Organized Health Care Education/Training Program; Emergency Provider Emergency Medicine; PCP Hospitalist; Visit Provider Internal Medicine | DX: R41.82 Altered mental status, unspecified (principal) | CPT/HCPCS: 93010 ==

== ENCOUNTER → 2024-10-07 11:30 | Outpatient (BNV) | payer MEDICARE, MEDICAID, SELFPAY | PROVIDERS: Emergency Provider Emergency Medicine; PCP Hospitalist; Visit Provider Radiology Diagnostic Radiology | DX: K56.41 Fecal impaction (principal); J18.9 Pneumonia, unspecified organism; R41.82 Altered mental status, unspecified; R94.2 Abnormal results of pulmonary function studies | CPT/HCPCS: 71045; 74176 ==

== ENCOUNTER → 2024-10-07 15:44 | Outpatient (BNV) | payer MEDICARE, MEDICAID, SELFPAY | PROVIDERS: Admitting Provider Student in an Organized Health Care Education/Training Program; Emergency Provider Emergency Medicine; PCP Hospitalist; Visit Provider Internal Medicine | DX: J18.9 Pneumonia, unspecified organism (principal) | CPT/HCPCS: 99222; 99232; 99239 ==

== ENCOUNTER 2024-11-13 15:01 | Outpatient (AMB) | payer MEDICARE, MEDICAID, SELFPAY ==
[2024-11-13 15:04] VITALS: BP 124/58; PULSE 75; O2SAT 97; BMI 25.6
--- NOTE | 2024-11-13 15:04 | A.OFFVIS_ITS ---
Vital Signs 11/13/24 15:04 Height 5 ft 10 in Weight 178 lb 9.191 oz BMI 25.6 BP 124/58 L Blood Pressure Location Rt brachial Position Sitting Pulse 75 Pulse Source Pulse Oximeter Pulse Oximetry (%) 97 Oxygen Delivery Method Room Air Intake Visit Reasons: pleural-based nodular Manager Metal: Manager Metal Present Accompanied by: Other Relationship Allergies No Known Drug Allergies Allergy (Unknown, Verified 11/13/24 15:09) none HPI Comments Details: The patient is here for pulmonary evaluation. The patient is a 69-year-old gentleman from [facility], he does have a limited communication and therefore the information was gathered from the chart and also the staff with him. Apparently the patient did have some abdominal discomfort back in October 2024. He was taken to the ER where he had a CT scan of the abdomen. The CT scan of the abdomen demonstrated lung windows with what appeared to be an opacity airspace disease in the right lower lobe. Also some pleural thickening. Looks like an infection although with limited lung windows we can not really assess the full area. Although it appears to be an infection. She still has a cough and does have some crackles at the right base. The patient does have issues with mentation and I am concerned about possibility of aspiration pneumonia or chronic aspiration issues. Will going to go ahead and start him on some antibiotics in addition to start nebulizer treatments twice a day to help him with mucus clearance. The patient was also provide him incentive spirometer and he was able to do it along with the assistance in direction. This will help open up the lungs further. In the meantime we are going to request a formal CT scan of the chest after completing the antibiotics to address the area. The patient will return to review the CT scan together. In the meantime he will continue using the nebulizer treatments twice a day and continue with the incentive spirometer. [facility] Medical History Psychotic disorder Hyperlipidemia DVT (deep venous thrombosis) Epilepsy Diabetes mellitus Hypertension TBI (traumatic brain injury) Social History Household Members: Other Housing: Senior Care Do you presently have visiting nurse or other home services: No Unable to assess alcohol history related to: Unknown Patient Tobacco Use Status: Tobacco use Unknown Advance Directives Date on File: 08/23/23 service: No Review of Systems Const Unobtainable due to mental condition and Unobtainable due to mental status Physical Exam Vital Signs: Last Vital Signs Pulse 75 11/13/24 15:04 BP 124/58 L 11/13/24 15:04 Pulse Ox 97 11/13/24 15:04 Oxygen Delivery Method Room Air 11/13/24 15:04 BMI result Body Mass Index 25.6 Const General: comfortable HEENT Head: Yes normocephalic Neck Neck: Yes supple Chest Chest palpation & inspection: normal inspection of the chest Resp Effort & Inspection: tachypneic Auscultation: diminished lung sounds Cardio Heart sounds: S1 normal heart sound present and S2 normal heart sound present GI Palpation (GI): Soft to palpation Skin General skin exam: no rashes or lesions noted Extrem General: Yes no clubbing, cyanosis or edema Assessment & Plan Assessment & Plan (1) Pneumonia of both lower lobes: Code(s): J18.9 - Pneumonia, unspecified organism Category: Medical Qualifiers: Pneumonia type: due to unspecified organism Qualified Code(s): J18.9 - Pneumonia, unspecified organism Plan Provided and instructed to use incentive spirometry Start Doxycycline 10 days start Nebs BID sleep wih HOB elevated monitor for any aspiration events CT chest in 4-6 weeks F/U after CT Orders: Orders CT chest wo IV con 4 Weeks J18.9 - Pneumonia, unspecified organism Coding Level of Care Code New Pt Level 4 (43611) Diagnoses Pneumonia of both lower lobes J18.9 Pneumonia type: due to unspecified organism Time Spent (min) 40
--- OUTSIDE RECORDS SUMMARY | 2024-11-13 15:07 | XMS_ITS | Encounter Summary ---
Author Organization [employer] Address [address] [place] [address] Care Team Providers Care Business Process Expert Name Role Phone Jeramie Schwartz MD Primary Care Provider [phone] Encounter Details Date Type Department Care Team (Latest Contact Info) Description 07/07/2024 Lab Requisition [facility] - Main Lab [address] [place] [address] Jeramie Schwartz MD [address] [place] [address] Dr [address] [place], [place] Diffuse traumatic brain injury with loss [...] retinopathy with macular edema, left eye (CMS/HCC) HEMOGLOBIN A1C Routine 07/07/2024 6:53 AM EST 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 unspecified duration, sequela (CMS/HCC) Acute embolism and thrombosis of unspecified deep veins of right lower extremity (CMS/HCC) Hyperlipidemia, unspecified Vitamin D deficiency, unspecified Type 2 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, left eye (CMS/HCC) documented in this encounter Results * Hemoglobin A1c (07/07/2024 6:53 AM EST) Hemoglobin A1C 5.4 <6.5 % LAB CHEMISTRY METHOD 07/07/2024 2:30 PM EST [facility] Mean Bld Glu Estim. 108 mg/dL LAB CHEMISTRY METHOD 07/07/2024 2:30 PM EST [facility] Blood Venous blood specimen / Unknown 07/07/2024 6:53 AM EST 07/07/2024 8:36 AM EST us Jeramie Schwartz MD LAB BLOOD ORDERABLES Final Resul t [facility] [address] [place] [address], * (ABNORMAL) CBC auto differential (07/07/2024 6:53 AM EST) WBC 4.7(L) 4.8 - 10.8 K/mcL LAB HEMETOLOGY METHOD 07/07/2024 9:44 AM EST [facility] RBC 4.00(L) 4.50 - 5.50 M/mcL LAB HEMETOLOGY METHOD 07/07/2024 9:44 AM EST [facility] Hemoglobin 10.4(L) 13.5 - 17.5 g/dL LAB HEMETOLOGY METHOD 07/07/2024 9:44 AM [facility] Hematocrit 33.5(L) 42.0 - 54.0 % LAB HEMETOLOGY METHOD 07/07/2024 9:44 AM [facility] MCV 84.2 79.0 - 98.0 FL LAB HEMETOLOGY METHOD 07/07/2024 9:44 AM [facility] MCH 26.1(L) 27.0 - 32.0 pcg LAB HEMETOLOGY METHOD 07/07/2024 9:44 AM [facility] MCHC 31.0(L) 32.0 - 37.0 g/dL LAB HEMETOLOGY METHOD 07/07/2024 9:44 AM [facility] RDW 19.0(H) 11.0 - 15.0 % LAB HEMETOLOGY METHOD 07/07/2024 9:44 AM [facility] Platelets 275 130 - 400 K/mcL LAB HEMETOLOGY METHOD 07/07/2024 9:44 AM [facility] MPV 10.9 7.0 - 11.0 FL LAB HEMETOLOGY METHOD 07/07/2024 9:44 AM [facility] NRBC 0.0 <1.0 % LAB HEMETOLOGY METHOD 07/07/2024 9:44 AM [facility] NRBC Absolute 0.00 <0.10 K/mcL LAB HEMETOLOGY METHOD 07/07/2024 9:44 AM [facility] Neutrophils Relative 65.9 % LAB HEMETOLOGY METHOD 07/07/2024 9:44 AM [facility] Lymphocytes Relative 15.7 % LAB HEMETOLOGY METHOD 07/07/2024 9:44 AM [facility] Monocytes Relative 12.9 % LAB HEMETOLOGY METHOD 07/07/2024 9:44 AM [facility] Eosinophils Relative 4.5 % LAB HEMETOLOGY METHOD 07/07/2024 9:44 AM [facility] Basophils Relative 0.4 % LAB HEMETOLOGY METHOD 07/07/2024 9:44 AM [facility] Immature Granulocytes Relative 0.6 % LAB HEMETOLOGY METHOD 07/07/2024 9:44 AM [facility] Neutrophils Absolute 3.06 1.50 - 7.00 K/mcL LAB HEMETOLOGY METHOD 07/07/2024 9:44 AM [facility] Lymphocytes Absolute 0.73(L) 1.00 - 5.00 K/mcL LAB HEMETOLOGY METHOD 07/07/2024 9:44 AM [facility] Monocytes Absolute 0.60 0.20 - 1.00 K/mcL LAB HEMETOLOGY METHOD 07/07/2024 9:44 AM EST [facility] Eosinophils Absolute 0.21 0.00 - 0.50 K/mcL LAB HEMETOLOGY METHOD 07/07/2024 9:44 AM [facility] Basophils Absolute 0.02 0.00 - 0.20 K/mcL LAB HEMETOLOGY METHOD 07/07/2024 9:44 AM [facility] Immature Granulocytes Absolute 0.03 0.00 - 0.03 K/mcL LAB HEMETOLOGY METHOD 07/07/2024 9:44 AM [facility] Blood Venous blood specimen / Unknown 07/07/2024 6:53 AM EST 07/07/2024 8:36 AM EST us Jeramie Schwartz MD LAB BLOOD ORDERABLES Final Resul t [facility] [address] [place] [address], documented in this encounter Visit Diagnoses Diagnosis 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 unspecified duration, sequela ([facility] V24) Acute embolism and thrombosis of unspecified deep veins of right lower extremity ([facility] V24, [facility] V28) Hyperlipidemia, unspecified Vitamin D deficiency, unspecified Type 2 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, left eye ([facility] V24, [facility] V28) documented in this encounter Care Teams Business Process Expert Relationship Specialty Start Date End Date Jeramie Schwartz MD [address] [place] [address] Dr [address] [place] PCP - General Internal Medicine 06/02/24 documented as of this encounter
== END 2024-11-13 15:37 | disposition home or self-care (01) ==
LOC: HO.HPS 15:02
PROVIDERS: PCP Hospitalist; Visit Provider Hospitalist
DX: J18.9 Pneumonia, unspecified organism (principal)
CPT/HCPCS: 99204

== ENCOUNTER → 2024-11-13 15:01 | Outpatient (BNVA) | payer MEDICARE, MEDICAID, SELFPAY | PROVIDERS: PCP Hospitalist; Visit Provider Hospitalist | DX: J18.9 Pneumonia, unspecified organism (principal) | CPT/HCPCS: 99202 ==

== ENCOUNTER 2024-11-25 14:40 | Outpatient (AMB) | payer MEDICARE, MEDICAID, SELFPAY ==
--- NOTE | 2024-11-25 14:43 | A.OFFVIS_ITS ---
Intake Visit Reasons: BPH Intake Note: New Patient is present for BPH Urology Rx:none PVR:255 mls Blood Thinners:none Imaging completed: CT 10/07/24 International Sales Representative Required: No Accompanied by: Self / Same As Patient Allergies No Known Drug Allergies Allergy (Unknown, Verified 11/25/24 15:14) none Medication List - Last Reconciled 11/25/24 by BELLO Zuñiga-MARTI acetaminophen 650 mg PO Q6H PRN alum-mag hydroxide-simeth 400-400-40 mg/5 mL (Mylanta Maximum Strength) 5 mL PO QID PRN ascorbic acid (vitamin C) 500 mg PO DAILY benztropine 0.5 mg PO BID cholecalciferol (vitamin D3) 25 mcg PO DAILY ferrous sulfate 325 mg PO DAILY fluphenazine HCl 5 mg PO BID glucagon 1 mg subcut Q20M PRN guaifenesin (Etta-Tussin) 200 mg PO Q4H PRN levetiracetam ER 1,500 mg PO BID lorazepam 1 mg IV Q1H PRN metoprolol succinate ER 25 mg PO DAILY olanzapine 10 mg PO DAILY omeprazole 40 mg PO BID@0630,1630 pregabalin 300 mg PO BID sennosides (senna) 8.6 mg PO DAILY PRN sennosides (senna) 8.6 mg PO BEDTIME sodium phosphates 19-7 gram/118 mL (Fleet Enema) 118 mL GA DAILY PRN HPI Comments Details: Silvio is a 69-year-old male patient of Dr. castelan who resides at [facility] in his accompanied by 2 of the staff members today as patient is a 1-1. He has a past medical history of psychotic disorder, hyperlipidemia, DVT, epilepsy, diabetes, hypertension, and traumatic brain injury. He presents to the office today as a new patient for incomplete bladder emptying. In di scussion with the staff today as patient is a poor historian they report patient to have no bothersome urinary issues or concerns however believe today's appointment was related to issues with his bladder. In review of patient's chart it appears patient was recently in the ER here at [facility] at which time a CT of the abdomen and pelvis was ordered and obtained. These results were reviewed and communicated today. 10/28 bilateral lower lobe pneumonia. Large amount of stool throughout the colon and rectum. Mild prominence of the bilateral renal collecting system which may be secondary to a full urinary bladder. Patient was unable to void during today's office visit although prompted multiple times. PVR 255 mL. We did discussed incomplete bladder emptying and further treatment options and risks and benefits of these treatment options. Staff deny patient to report any bothersome urinary issues. They otherwise offers no other issues or concerns at this time. BUN: 08/27 13, 01/27 11, 06/30 18, 10/28 26, 10/28 16, 10/28 10 Creatinine: 08/27 0.86, 01/27 1.01, 06/30 0.93, 10/28 1.64, 10/28 0.97, 10/28 0.92 PFSH Medical History Psychotic disorder Hyperlipidemia DVT (deep venous thrombosis) Epilepsy Diabetes mellitus Hypertension TBI (traumatic brain injury) Social History Household Members: Other Housing: [facility] Do you presently have visiting nurse or other home services: No Unable to assess alcohol history related to: Unknown Patient Tobacco Use Status: Tobacco use Unknown Advance Directives Date on File: 08/23/23 service: No Review of Systems Const Unobtainable due to mental condition and Unobtainable due to mental status Physical Exam Const General: cooperative, comfortable, no acute distress, well developed, alert and awake Orientation/consciousness: oriented to person Limitations: behavioral limitations HEENT Head: Yes normal to inspection Eyes General: appearance normal, both eyes and all related structures Neck Neck: Yes normal visual inspection Chest Chest palpation & inspection: normal inspection of the chest Resp Effort & Inspection: normal respiratory effort Cardio Rate: regular rate GI Inspection: Yes normal to inspection General: Yes no CVA tenderness Back/Spine/Pelvis Back: no CVA tenderness Skin General skin exam: no rashes or lesions noted Neuro General: oriented to person Extrem General: Yes normal to inspection Psych Appearance: well kempt Speech and movement: Slurred speech present Affect: normal affect Attitude: cooperative Thought process: Word salad present (speech) Insight: Limited insight present (Psych) and Poor insight present (Psych) Judgement: Limited judgement present (Psych) and Poor judgement present (Psych) Results Reviewed Results Reviewed: Date of Service: 10/07/24 Procedure(s): CT abdomen pelvis wo IV con FINDINGS: LOWER CHEST: There are airspace opacities with air bronchograms at both lung bases, consistent with pneumonia. There is no pleural effusion. CARDIOVASCULATURE: The heart is normal in size. There is no pericardial effusion. LIVER: The liver is normal in size and contour. Again seen are cyst in the left lobe of the liver measuring up to 1.6 cm in size. GALLBLADDER / BILE DUCTS: The gallbladder is unremarkable. There is no intra or extrahepatic biliary ductal dilatation. SPLEEN: The spleen is normal in size and has an unremarkable unenhanced appearance. PANCREAS: The pancreas has an unremarkable unenhanced appearance. ADRENAL GLANDS: Unremarkable. KIDNEYS/RETROPERITONEUM: No renal calculi are identified. There is mild prominence of the bilateral intrarenal collecting systems which may be secondary to a full urinary bladder. LYMPH NODES: No retroperitoneal lymphadenopathy is identified in the abdomen or pelvis. VASCULATURE: The abdominal aorta is normal in caliber. MESENTERY/PERITONEUM: No free fluid. No masses. There is no free intraperitoneal gas. STOMACH: The stomach is collapsed, limiting evaluation. SMALL BOWEL: The small bowel is normal in caliber. COLON: There is a large amount of stool throughout the colon particularly in the rectum. There is mild rectal wall thickening. APPENDIX: Normal. URINARY BLADDER/PELVIC ORGANS: The urinary bladder is distended. The prostate is normal in size. BONES / SOFT TISSUES: No suspicious bony or soft tissue abnormalities. IMPRESSION: 1. Bilateral lower lobe pneumonia. Follow-up is recommended to document resolution. 2. Large amount of stool throughout the colon and rectum. Mild rectal wall thickening. Sigmoidoscopy is recommended to exclude neoplasm. 3. Mild prominence of the bilateral renal collecting systems which may be secondary to a full urinary bladder. Assessment & Plan Assessment & Plan (1) Incomplete bladder emptying: Code(s): R33.9 - Retention of urine, unspecified Category: Medical Plan Unable to obtain urine for urinalysis PVR 255mls Most recent CT results were reviewed; as noted above Will obtain PSA for further assessment evaluation. Will obtain BUN and creatinine for further assessment evaluation. Start Flomax as discussed and prescribed. We did discussed potential causes and treatment options for incomplete bladder emptying and risks and benefits of these treatment options Staff deny patient to report any bothersome urinary issues or concerns. Follow-up in 1-3 months with labs to be completed prior; or sooner with any issues, concerns, and or questions Orders: Orders Prostate Specific Antigen Today R33.9 - Retention of urine, unspecified Creatinine Today R33.9 - Retention of urine, unspecified Blood Urea Nitrogen Today R33.9 - Retention of urine, unspecified Medications: New tamsulosin 0.4 mg PO BEDTIME 30 caps 3RF 30 days N40.1 - Benign prostatic hyperplasia with lower urinary tract symptoms, R35.1 - Nocturia Patient Instructions: The patient had an opportunity to ask questions regarding the treatment plan. All questions were answered. Physical exam, labs, and imaging were discussed and reviewed in detail. As well as risks, benefits, and discussion of treatment choices. No major barriers to understanding were identified. The patient expressed understanding and agreement with the above treatment plan. The patient was made aware they should contact our office by phone for worsening of their current condition, the appearance of new symptoms, or with any questions or concerns. Compliance is encouraged with any medications and follow up testing that is ordered. It is a privilege to be allowed the opportunity to participate in? your urological care.? Again, if you have any questions or concerns If you have any questions or concerns please do not hesitate to contact me. The office is [phone]. This note is constructed using voice recognition software. While every effort has been made to ensure accuracy depot manager errors may have been included. Yours sincerely, DOT Zuñiga Coding Level of Care Code New Pt Level 4 (27140) Diagnoses Incomplete bladder emptying R33.9
--- OUTSIDE RECORDS SUMMARY | 2024-11-25 15:11 | XMS_ITS | Encounter Summary ---
Author Organization [employer] Address [address] [place] [address] Care Team Providers Care Section Gang Worker Name Role Phone Jeramie Schwartz MD Primary Care Provider [phone] Encounter Details Date Type Department Care Team (Latest Contact Info) Description 07/07/2024 Lab Requisition [facility] - Main Lab [address] [place] [address] Jeramie Schwartz MD [address] [place] [address] Dr [address] [place], [place] Diffuse traumatic brain injury with loss [...] Resul t [facility] [address] [place] [address], * (ABNORMAL) CBC auto differential (07/07/2024 6:53 AM EST) WBC 4.7(L) 4.8 - 10.8 K/mcL LAB HEMETOLOGY METHOD 07/07/2024 9:44 AM EST [facility] RBC 4.00(L) 4.50 - 5.50 M/mcL LAB HEMETOLOGY METHOD 07/07/2024 9:44 AM EST [facility] Hemoglobin 10.4(L) 13.5 - 17.5 g/dL LAB HEMETOLOGY METHOD 07/07/2024 9:44 AM [facility] Hematocrit 33.5(L) 42.0 - 54.0 % LAB HEMETOLOGY METHOD 07/07/2024 9:44 AM [facility] MCV 84.2 79.0 - 98.0 FL LAB HEMETOLOGY METHOD 07/07/2024 9:44 AM [facility] MCH 26.1(L) 27.0 - 32.0 pcg LAB HEMETOLOGY METHOD 07/07/2024 9:44 AM [facility] MCHC 31.0(L) 32.0 - 37.0 g/dL LAB HEMETOLOGY METHOD 07/07/2024 9:44 AM [facility] RDW 19.0(H) 11.0 - 15.0 % LAB HEMETOLOGY METHOD 07/07/2024 9:44 AM [facility] Platelets 275 130 - 400 K/mcL LAB HEMETOLOGY METHOD 07/07/2024 9:44 AM [facility] MPV 10.9 7.0 - 11.0 FL LAB HEMETOLOGY METHOD 07/07/2024 9:44 AM [facility] NRBC 0.0 <1.0 % LAB HEMETOLOGY METHOD 07/07/2024 9:44 AM [facility] NRBC Absolute 0.00 <0.10 K/mcL LAB HEMETOLOGY METHOD 07/07/2024 9:44 AM [facility] Neutrophils Relative 65.9 % LAB HEMETOLOGY METHOD 07/07/2024 9:44 AM [facility] Lymphocytes Relative 15.7 % LAB HEMETOLOGY METHOD 07/07/2024 9:44 AM [facility] Monocytes Relative 12.9 % LAB HEMETOLOGY METHOD 07/07/2024 9:44 AM [facility] Eosinophils Relative 4.5 % LAB HEMETOLOGY METHOD 07/07/2024 9:44 AM [facility] Basophils Relative 0.4 % LAB HEMETOLOGY METHOD 07/07/2024 9:44 AM [facility] Immature Granulocytes Relative 0.6 % LAB HEMETOLOGY METHOD 07/07/2024 9:44 AM [facility] Neutrophils Absolute 3.06 1.50 - 7.00 K/mcL LAB HEMETOLOGY METHOD 07/07/2024 9:44 AM [facility] Lymphocytes Absolute 0.73(L) 1.00 - 5.00 K/mcL LAB HEMETOLOGY METHOD 07/07/2024 9:44 AM [facility] Monocytes Absolute 0.60 0.20 - 1.00 K/mcL LAB HEMETOLOGY METHOD 07/07/2024 9:44 AM EST [facility] Eosinophils Absolute 0.21 0.00 - 0.50 K/mcL LAB HEMETOLOGY METHOD 07/07/2024 9:44 AM [facility] Basophils Absolute 0.02 0.00 - 0.20 K/mcL LAB HEMETOLOGY METHOD 07/07/2024 9:44 AM [facility] Immature Granulocytes Absolute 0.03 0.00 - 0.03 K/mcL LAB HEMETOLOGY METHOD 07/07/2024 9:44 AM [facility] Blood Venous blood specimen / Unknown 07/07/2024 6:53 AM EST 07/07/2024 8:36 AM EST us Jeramie Schwartz MD LAB BLOOD ORDERABLES Final Resul t [facility] [address] [place] [address], documented in this encounter Visit Diagnoses Diagnosis 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 unspecified duration, sequela ([facility] V24) Acute embolism and thrombosis of unspecified deep veins of right lower extremity ([facility] V24, [facility] V28) Hyperlipidemia, unspecified Vitamin D deficiency, unspecified Type 2 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, left eye ([facility] V24, [facility] V28) documented in this encounter Care Teams Section Gang Worker Relationship Specialty Start Date End Date Jeramie Schwartz MD [address] [place] [address] Dr [address] [place] PCP - General Internal Medicine 06/02/24 documented as of this encounter
== END 2024-11-25 15:16 | disposition home or self-care (01) ==
LOC: HO.HUSH 14:40
PROVIDERS: PCP Hospitalist; Visit Provider Nurse Practitioner Family
DX: R33.9 Retention of urine, unspecified (principal)
CPT/HCPCS: 99204

== ENCOUNTER → 2024-11-25 14:40 | Outpatient (BNVA) | payer MEDICARE, MEDICAID, SELFPAY | PROVIDERS: PCP Hospitalist; Visit Provider Nurse Practitioner Family | DX: R33.9 Retention of urine, unspecified (principal); Z79.899 Other long term (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 | CPT/HCPCS: 51798; 99202 ==

== ENCOUNTER 2025-01-14 09:55 | Outpatient (AMB) | payer MEDICARE, MEDICAID, SELFPAY ==
[2025-01-14 09:57] VITALS: BP 108/63; PULSE 74
--- NOTE | 2025-01-14 09:57 | A.OFFVIS_ITS ---
Vital Signs 01/14/25 09:57 Height 5 ft 10 in BMI Reason not done Patient refused/unable BP 108/63 Blood Pressure Location Lt brachial Position Sitting Pulse 74 Intake Visit Reasons: 6 mo Discuss upper GI series,CT ,results Intake Note: Silvio presents in the office as a 6 month follow up. CC: Only concern they have is that he has dizziness lately. 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 Patient is very poor historian, when speaking to nursing specialist patient is on regular diet with small by and regular liquids. Due to his behavioral diagnosis patient is compulsive fever and eats very fast. Trying to rule out esophageal dysmotility, achalasia versus Schatzki ring. Avoid dietary triggers and late night snacking. Staying upright for minimum 3 hours after meals discussed with patient ultrasound limited to evaluate hepatic cysts. Most likely hemangioma. Patient will follow-up in 6 months we will book him for upper endoscopy. Staff is agreeable to plan of care and verbalizes understanding of instructions. Plan discussed with nursing specialist of the facility as well. ? Thank you for allowing me to participate in his care Orders FL upper GI w Ba Swallow Today K21.9 US abdomen limited Today K76.[address] ADAMSON Date of Service: 10/08/24 Event Note: Consult received 10/08/2024 for question of dysphagia and rectal wall thickening. Attempted to see patient at bedside, but was asleep, and did not want to be woken up for assessment. Discussed with the nurse as well. From review of barium swallow, appears dysphagia likely secondary to esophageal dysmotility. No stricture, web, ring noted on the barium swallow. Noncontrast CT scan with significant fecal loading on the left side. 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 Recommend bowel regimen. Enemas if needed. UPDATE 10/09 - pt discharged. Will notify outpatient GI to consider barium enema vs colonoscopy if not recently done. TODAY'S VISIT: Patient is here today for requested visit. Patient was admitted in the [facility] of October and Dr. Adamson consulted for dysphagia and rectal thickening. [facility] Staff reports patient is not having any trouble swallowing. No choking episodes observed. Patient is moving his bowels. No melena or hematochezia reported. Staff denies any other GI concerning symptoms FOR[facility]LY [facility], [facility] Medical History (Updated 01/14/25 @ 13:11 by KAYE AllanP-) Pancreatic cyst Psychotic disorder Hyperlipidemia DVT (deep venous thrombosis) Epilepsy Diabetes mellitus Hypertension TBI (traumatic brain injury) Social History Household Members: Other Housing: Care Home Do you presently have visiting nurse or other home services: No Unable to assess alcohol history related to: Unknown Patient Tobacco Use Status: Tobacco use Unknown Advance Directives Date on File: 08/23/23 service: No Review of Systems Const Details: All system reviewed with staff as patient is unable to answer any of the questions due to his behavioral symptoms of occasional dysphagia Physical Exam Vital Signs: Last Vital Signs Pulse 74 01/14/25 09:57 BP 108/63 01/14/25 09:57 Const Other: Patient is sitting in a wheelchair General: healthy appearing and no acute distress Resp Effort & Inspection: normal respiratory effort, able to speak in complete sentences, no tracheal deviation and symmetric chest movement Auscultation: clear to auscultation bilaterally Cardio Rate: regular rate GI Inspection: Yes normal to inspection and No distended Palpation (GI): Soft to palpation, not firm, nontender and No hepatosplenomegaly present Auscultation: normal bowel sounds General: Yes no CVA tenderness Back/Spine/Pelvis Back: no CVA tenderness Skin General skin exam: elasticity normal, turgor normal and dry skin Psych Appearance: grossly normal Attitude: cooperative Results Reviewed Results Reviewed: UPPER GI WITH BARIUM SWALLOW IMPRESSION: Aperistaltic and dilated esophagus suggestive of Presbyesophagus . The stomach and duodenum is nondistended but grossly unremarkable. CT SCAN OF ABDOMEN AND PELVIS IMPRESSION: No arterially enhancing hepatic lesions identified. 1.8 cm low-density or cystic structure in the pancreatic tail, possibly pseudocyst versus cystic pancreatic neoplasm, grossly unchanged since 2022. Assessment & Plan Assessment & Plan (1) Dysphagia: Code(s): R13.10 - Dysphagia, unspecified Qualifiers: Dysphagia type: pharyngoesophageal phase Qualified Code(s): R13.14 - Dysphagia, pharyngoesophageal phase (2) Liver cyst: Code(s): K76.89 - Other specified diseases of liver (3) Pancreatic cyst: Code(s): K86.2 - Cyst of pancreas Category: Medical Plan Can repeat MRI in 1 year with IV contrast. Barium enema to evaluate rectal thickening. Continue diet recommended by speech therapy. Follow-up as needed. Staff is agreeable to this plan and verbalizes understanding of instructions. They were given the opportunity to ask questions and all questions answered. Thank you for allowing me to participate in his care Orders: Orders FL barium enema Today K62.9 - Disease of anus and rectum, unspecified Coding Level of Care Code Est Pt Level 4 (69417) Complex EM visit Add On G2211 Diagnoses Pharyngoesophageal dysphagia R13.14 Dysphagia type: pharyngoesophageal phase Liver cyst K76.89 Pancreatic cyst K86.2 Time Spent (min) 40 Comment 25 minute spent with patient and additional 15 minutes spent reviewing his records
--- OUTSIDE RECORDS SUMMARY | 2025-01-14 11:49 | XMS_ITS | Encounter Summary ---
Author Organization [facility] Address [address] [place] [address] Care Team Providers Care Haul Cane Brakeman Name Role Phone Jeramie Schwartz MD Primary Care Provider [phone] Encounter Details Date Type Department Care Team (Late st Contact Info) Description 09/24/2024 Lab Requisition [facility] - Main Lab [address] [facility] [place] [address] Jeramie Schwartz MD [address] [place] [address] Dr [address] [place] 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 unspecified duration, sequela (CMS/HCC V24); [place] [facility] [place]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 Social History Tobacco Use [...] Diagnosis Comments CBC WITH AUTO DIFFERENTIAL Routine 09/24/2024 6:30 AM EDT 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 unspecified duration, sequela (CMS/HCC V24) Other terminal gauger (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 CBC AND DIFFERENTIAL Routine 09/24/2024 6:30 AM EDT 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 unspecified duration, sequela (CMS/HCC V24) Other terminal gauger (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 documented in this encounter Results * (ABNORMAL) CBC auto differential (09/24/2024 6:30 AM EDT) WBC 4.3(L) 4.8 - 10.8 K/[facility] LAB HEMETOLOGY METHOD 09/24/2024 8:50 AM [facility] RBC 4.40(L) 4.50 - 5.50 M/mcL LAB HEMETOLOGY METHOD 09/24/2024 8:50 AM [facility] Hemoglobin 11.5(L) 13.5 - 17.5 g/dL LAB HEMETOLOGY METHOD 09/24/2024 8:50 AM [facility] Hematocrit 36.4(L) 42.0 - 54.0 % LAB HEMETOLOGY METHOD 09/24/2024 8:50 AM [facility] MCV 83.1 79.0 - 98.0 FL LAB HEMETOLOGY METHOD 09/24/2024 8:50 AM [facility] MCH 26.3(L) 27.0 - 32.0 pcg LAB HEMETOLOGY METHOD 09/24/2024 8:50 AM [facility] MCHC 31.6(L) 32.0 - 37.0 g/dL LAB HEMETOLOGY METHOD 09/24/2024 8:50 AM [facility] RDW 16.6(H) 11.0 - 15.0 % LAB HEMETOLOGY METHOD 09/24/2024 8:50 AM [facility] Platelets 218 130 - 400 K/mcL LAB HEMETOLOGY METHOD 09/24/2024 8:50 AM [facility] MPV 10.7 7.0 - 11.0 FL LAB HEMETOLOGY METHOD 09/24/2024 8:50 AM [facility] LAB NRBC 0.0 <1.0 % LAB HEMETOLOGY METHOD 09/24/2024 8:50 AM [facility] NRBC Absolute 0.00 <0.10 K/mcL LAB HEMETOLOGY METHOD 09/24/2024 8:50 AM [facility] Neutrophils Relative 63.4 % LAB HEMETOLOGY METHOD 09/24/2024 8:[address] [facility] Lymphocytes Relative 18.7 % LAB HEMETOLOGY METHOD 09/24/2024 8:50 AM [facility] Monocytes Relative 13.8 % LAB HEMETOLOGY METHOD 09/24/2024 8:50 AM [facility] Eosinophils Relative 3.7 % LAB HEMETOLOGY METHOD 09/24/2024 8:50 AM [facility] Basophils Relative 0.2 % LAB HEMETOLOGY METHOD 09/24/2024 8:50 AM [facility] Immature Granulocytes Relative 0.2 % LAB HEMETOLOGY METHOD 09/24/2024 8:50 AM [facility] Neutrophils Absolute 2.75 1.50 - 7.00 K/mcL LAB HEMETOLOGY METHOD 09/24/2024 8:50 AM [facility] Lymphocytes Absolute 0.81(L) 1.00 - 5.00 K/mcL LAB HEMETOLOGY METHOD 09/24/2024 8:50 AM [facility] Monocytes Absolute 0.60 0.20 - 1.00 K/mcL LAB HEMETOLOGY METHOD 09/24/2024 8:50 AM [facility] Eosinophils Absolute 0.16 0.00 - 0.50 K/mcL LAB HEMETOLOGY METHOD 09/24/2024 8:50 AM [facility] Basophils Absolute 0.01 0.00 - 0.20 K/mcL LAB HEMETOLOGY METHOD 09/24/2024 8:50 AM [facility] Immature Granulocytes Absolute 0.01 0.00 - 0.03 K/mcL LAB HEMETOLOGY METHOD 09/24/2024 8:50 AM [facility] Blood Venous blood specimen / Unknown 09/24/2024 6:30 AM EDT 09/24/2024 7:21 AM EDT Jeramie Schwartz MD LAB BLOOD ORDERABLES Final Resul t [facility]) [facility] [address] [place] [address], documented in this encounter Visit Diagnoses Diagnosis 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 unspecified duration, sequela (CMS/HCC V24) [place] [facility] 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 documented in this encounter Care Teams Haul Cane Brakeman Relationship Specialty Start Date End Date Jeramie Schwartz MD [address] [place] [address] Dr [address] [place], [place] PCP - General Internal Medicine 06/02/24 documented as of this encounter
--- OUTSIDE RECORDS SUMMARY | 2025-01-14 11:49 | XMS_ITS | Encounter Summary ---
[facility] Address [address] [place] [address] Care Team Providers Care Hem Inspector Name Role Phone Jeramie Schwartz MD Primary Care Provider [phone] Encounter Details Date Type Department Care Team (Late st Contact Info) Description 09/22/2024 Lab Requisition [facility] - Main Lab [address] [facility] [place] [address] Jeramie Schwartz MD [address] [place] [address] [address] [place] Other tank terminal gauger (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 Social History Tobacco Use [...] Priority Date/Time Associated Diagnosis Comments PREGABALIN Routine 09/22/2024 6:35 AM EDT Other tank terminal gauger (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 documented in this encounter Results * Pregabalin (09/22/2024 6:35 AM EDT) Pregabalin 8.4 ug/mL 09/24/2024 3:05 PM EDT [facility] Comment: Therapeutic and toxic ranges have not been established. Expected steady state pregabalin concentrations in patients taking recommended daily dosages: up to 10 ug/mL. This test was developed and its performance characteristics determined by [facility]. It has not been cleared or approved by the Food and Drug Administration. Blood Venous blood specimen / Unknown 09/22/2024 6:35 AM EDT 09/22/2024 7:46 AM EDT Narrative [facility] - 09/24/2024 3:05 PM EDT Performed at: 01 - [employer] [address] [place] [id number] Gifted Program Teacher: Michelle Jimenez [facility], Phone: [phone] us Jeramie Schwartz MD LAB BLOOD ORDERABLES Final Resul t [facility] documented in this encounter Visit Diagnoses Diagnosis Other tank terminal gauger (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 documented in this encounter Care Teams Hem Inspector Relationship Specialty Start Date End Date Jeramie Schwartz MD [address] [place] [address] Dr [address] [place] Chaudhry PCP - General Internal Medicine 06/02/24 documented as of this encounter
--- OUTSIDE RECORDS SUMMARY | 2025-01-14 11:49 | XMS_ITS | Clinical Summary ---
Author Organization [address] Address [address] [place] [address] Phone Care Team Providers Care Fellmongery Worker Name Role Phone Jeramie Schwartz MD Primary Care Provider [phone] Encounters Date Type Department Care Team Description 01/14/2025 Lab Requisition [facility] Lab [address] [place] [phone] Jeramie Schwartz MD Type 2 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, left eye (CMS/HCC V24, CMS/HCC V28) 12/14/2024 Lab Requisition [facility] Lab [address] [place] [phone] Jeramie Schwartz MD Other fecal abnormalities 11/26/2024 Lab Requisition [facility] Lab [address] [place] [phone] Jeramie Schwartz MD Feeling of incomplete bladder emptying 11/13/2024 Lab Requisition [facility] Lab [address] [place] [phone] Jeramie Schwartz MD Other fecal abnormalities 10/21/2024 Lab Requisition [facility] Lab [address] [place] [phone] Jeramie Schwartz MD Encounter for therapeutic drug level monitoring 10/14/2024 Lab Requisition [facility] Lab [address] [place] [phone] Jeramie Schwartz MD Type 2 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, left eye (CMS/HCC V24, CMS/HCC V28) from Last 3 Months Social History [...] Screen 05/30/2023 Cholesterol Screening (Lipid Panel) 05/30/2023 Falls Risk Assessment 05/30/2023 Hepatitis C Screening 05/30/2023 Medicare Annual Wellness Visit 05/30/2023 Social Influencers of Health Screening 05/30/2023 Depression Screening 05/06/2024 Diabetes: Annual Urine Albumin-Creatinine Ratio (uACR) 07/09/2024 COVID-19 Vaccine ( season) 2025 Influenza Vaccine (#1) 2025 Diabetes: Blood Sugar Control Test (HGBA1C) 04/15/2025 01/14/2025, 10/14/2024, 09/03/2024, Additional history exists Colorectal Cancer Screening: Stool Based Tests (FOBT/FIT) 09/04/2025 09/04/2024 Diabetes: Annual GFR (Glomerular Filtration Rate) 11/26/2025 11/26/2024, 10/21/2024, 09/03/2024, Additional history exists Hypertension/CHF/CAD Annual BMP Blood Test 11/26/2025 11/26/2024, 10/21/2024, 09/03/2024, Additional history exists HIB Vaccines Aged Out No longer eligi [...] 20 months Aged Out No longer eligible based on patient's age to complete this topic Varicella Vaccines Aged Out No longer eligible based on patient's age to complete this topic Procedures Procedure Name Priority Date/Time Associated Diagnosis Comments CBC WITH AUTO DIFFERENTIAL Routine 01/14/2025 6:33 AM EDT Type 2 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, left eye (CMS/HCC V24, CMS/HCC V28) HEMOGLOBIN A1C Routine 01/14/2025 6:33 AM EDT Type 2 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, left eye (CMS/HCC V24, CMS/HCC V28) CBC AND DIFFERENTIAL Routine 01/14/2025 6:33 AM EDT Type 2 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, left eye (CMS/HCC V24, CMS/HCC V28) CBC WITH AUTO DIFFERENTIAL Routine 12/14/2024 5:55 AM EDT Other fecal abnormalities CBC AND DIFFERENTIAL Routine 12/14/2024 5:55 AM EDT Other fecal abnormalities MANUAL DIFFERENTIAL - SYSMEX WAM Routine 11/26/2024 6:20 AM EDT Feeling of incomplete bladder emptying PATHOLOGIST REVIEW BLOOD SMEAR Routine 11/26/2024 6:20 AM EDT Feeling of incomplete bladder emptying CBC WITH AUTO DIFFERENTIAL Routine 11/26/2024 6:20 AM EDT Feeling of incomplete bladder emptying PROSTATE SPECIFIC ANTIGEN DIAGNOSTIC Routine 11/26/2024 6:20 AM EDT Feeling of incomplete bladder emptying CBC AND DIFFERENTIAL Routine 11/26/2024 6:20 AM EDT Feeling of incomplete bladder emptying BUN Routine 11/26/2024 6:20 AM EDT Feeling of incomplete bladder emptying CREATININE, SERUM Routine 11/26/2024 6:2 0 AM EDT Feeling of incomplete bladder emptying CBC WITH AUTO DIFFERENTIAL Routine 11/13/2024 6:45 AM EDT Other fecal abnormalities CBC AND DIFFERENTIAL Routine 11/13/2024 6:45 AM EDT Other fecal abnormalities CBC WITH AUTO DIFFERENTIAL Routine 10/21/2024 6:20 AM EDT Encounter for therapeutic drug level monitoring PREGABALIN Routine 10/21/2024 6:20 AM EDT Encounter for therapeutic drug level monitoring LEVETIRACETAM LEVEL Routine 10/21/2024 6 :20 AM EDT Encounter for therapeutic drug level monitoring CBC AND DIFFERENTIAL Routine 10/21/2024 6:20 AM EDT Encounter for therapeutic drug level monitoring COMPREHENSIVE METABOLIC PANEL Routine 10/21/2024 6:20 AM EDT Encounter for therapeutic drug level monitoring MANUAL DIFFERENTIAL - SYSMEX WAM Routine 10/14/2024 7:20 AM EDT Type 2 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, left eye (CMS/HCC V24, CMS/HCC V28) CBC WITH AUTO DIFFERENTIAL Routine 10/14/2024 7:20 AM EDT Type 2 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, left eye (CMS/HCC V24, CMS/HCC V28) HEMOGLOBIN A1C Routine 10/14/2024 7:20 AM EDT Type 2 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, left eye (CMS/HCC V24, CMS/HCC V28) CBC AND DIFFERENTIAL Routine 10/14/2024 7:20 AM EDT Type 2 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, left eye ([facility] V24, [facility] V28) OCCULT BLOOD STOOL, GUAIAC Routine 09/04/2024 10:45 AM EDT Melena from Last 3 Months or Most Recently Relevant to Health Maintenance Results * (ABNORMAL) CBC auto differential (01/14/2025 6:33 AM EDT) Only the most recent of6 resultswithin the time period is included. WBC 5.6 4.8 - 10.8 K/mcL LAB HEMETOLOGY METHOD 01/14/2025 8:09 AM [facility] RBC 5.40 4.50 - 5.50 M/mcL LAB HEMETOLOGY METHOD 01/14/2025 8:09 AM [facility] Hemoglobin 13.8 13.5 - 17.5 g/dL LAB HEMETOLOGY METHOD 01/14/2025 8:09 AM [facility] Hematocrit 44.6 42.0 - 54.0 % LAB HEMETOLOGY METHOD 01/14/2025 8:09 AM [facility] MCV 82.4 79.0 - 98.0 FL LAB HEMETOLOGY METHOD 01/14/2025 8:09 AM [facility] MCH 25.5(L) 27.0 - 32.0 pcg LAB HEMETOLOGY METHOD 01/14/2025 8:09 AM [facility] MCHC 30.9(L) 32.0 - 37.0 g/dL LAB HEMETOLOGY METHOD 01/14/2025 8:09 AM [facility] RDW 17.2(H) 11.0 - 15.0 % LAB HEMETOLOGY METHOD 01/14/2025 8:09 AM [facility] Platelets 149 130 - 400 K/mcL LAB HEMETOLOGY METHOD 01/14/2025 8:09 AM [facility] MPV LAB HEMETOLOGY METHOD 01/14/2025 8:09 AM [facility] Comment:Not Measured NRBC 0.0 <1.0 % LAB HEMETOLOGY METHOD 01/14/2025 8:09 AM [facility] NRBC Absolute 0.00 <0.10 K/mcL LAB HEMETOLOGY METHOD 01/14/2025 8:09 AM [facility] Neutrophils Relative 82.4 % LAB HEMETOLOGY METHOD 01/14/2025 8:09 AM [facility] Lymphocytes Relative 12.9 % LAB HEMETOLOGY METHOD 01/14/2025 8:09 AM [facility] Monocytes Relative 3.9 % LAB HEMETOLOGY METHOD 01/14/2025 8:09 AM [facility] Eosinophils Relative 0.2 % LAB HEMETOLOGY METHOD 01/14/2025 8:09 AM [facility] Basophils Relative 0.2 % LAB HEMETOLOGY METHOD 01/14/2025 8:09 AM [facility] Immature Granulocytes Relative 0.4 % LAB HEMETOLOGY METHOD 01/14/2025 8:09 AM [facility] Neutrophils Absolute 4.62 1.50 - 7.00 K/mcL LAB HEMETOLOGY METHOD 01/14/2025 8:09 AM [facility] Lymphocytes Absolute 0.72(L) 1.00 - 5.00 K/mcL LAB HEMETOLOGY METHOD 01/14/2025 8:09 AM [facility] Monocytes Absolute 0.22 0.20 - 1.00 K/mcL LAB HEMETOLOGY METHOD 01/14/2025 8:09 AM EDT [facility] Eosinophils Absolute 0.01 0.00 - 0.50 K/[facility] LAB HEMETOLOGY METHOD 01/14/2025 8:09 AM EDT [facility] Basophils Absolute 0.01 0.00 - 0.20 K/[facility] LAB HEMETOLOGY METHOD 01/14/2025 8:09 AM EDT [facility] Immature Granulocytes Absolute 0.02 0.00 - 0.03 K/mcL LAB HEMETOLOGY METHOD 01/14/2025 8:09 AM EDT [facility] Blood Venous blood specimen / Unknown 01/14/2025 6:33 AM EDT 01/14/2025 7:58 AM EDT us Jeramie Schwartz MD LAB BLOOD ORDERABLES Final Resul t Performing Organization Address City/[facility]/ZIP Co de Phone Number [facility] [address] [place] [address], [place] [phone] * Hemoglobin A1c (01/14/2025 6:33 AM EDT) Only the most recent of2 resultswithin the time period is included. Hemoglobin A1C 5.9 <6.5 % LAB CHEMISTRY METHOD 01/14/2025 11:10 AM EDT [facility] Mean Bld Glu Estim. 123 mg/dL LAB CHEMISTRY METHOD 01/14/2025 11:10 AM EDT [facility] Blood Venous blood specimen / Unknown 01/14/2025 6:33 AM EDT 01/14/2025 7:58 AM EDT us Jeramie Schwartz MD LAB BLOOD ORDERABLES Final Resul t Performing Organization Address [facility]/ZIP Co de Phone Number [facility] [address] [place] [address], [place] [phone] * (ABNORMAL) Manual differential (11/26/2024 6:20 AM EDT) Only the most recent of2 resultswithin the time period is included. Neutrophils % 58.0 % LAB HEMETOLOGY METHOD 11/26/2024 8:26 AM [facility] Lymphocytes % 24.0 % LAB HEMETOLOGY METHOD 11/26/2024 8:26 AM [facility] Reactive Lymphocyte 4.00 % LAB HEMETOLOGY METHOD 11/26/2024 8:26 AM [facility] Monocytes % 10.0 % LAB HEMETOLOGY METHOD 11/26/2024 8:26 AM [facility] Eosinophils % 2.0 % LAB HEMETOLOGY METHOD 11/26/2024 8:26 AM [facility] Basophils % 2.0 % LAB HEMETOLOGY METHOD 11/26/2024 8:26 AM [facility] Neutrophils Absolute Manual 1.33(L) 1.50 - 7.00 K/mcL LAB HEMETOLOGY METHOD 11/26/2024 8:26 AM [facility] Lymphocytes Absolute 0.55(L) 1.00 - 5.00 K/mcL LAB HEMETOLOGY METHOD 11/26/2024 8:26 AM [facility] Reactive Lymph Abs Manual 0.09(H) 0.00 - 0.00 lym LAB HEMETOLOGY METHOD 11/26/2024 8:26 AM [facility] Monocytes Absolute Manual 0.23 0.20 - 1.00 K/mcL LAB HEMETOLOGY METHOD 11/26/2024 8:26 AM [facility] Eosinophils Absolute Manual 0.05 0.00 - 0.50 K/mcL LAB HEMETOLOGY METHOD 11/26/2024 8:26 AM [facility] Basophils Absolute Manual 0.05 0.00 - 0.20 K/mcL LAB HEMETOLOGY METHOD 11/26/2024 8:26 AM EDT [facility] Blood Venous blood specimen / Unknown 11/26/2024 6:20 AM EDT 11/26/2024 7:28 AM EDT us Jeramie Schwartz MD LAB BLOOD ORDERABLES Final Resul t Performing Organization Address [facility] de Phone Number [facility] [address] [place] [address], [place] [phone] * Pathology review, blood smear (11/26/2024 6:20 AM EDT) Pathologist Review Blood Smear Leukopenia including absolute neutropenia and absolute lymphopenia: smear not diagnostic of etiology. Normocytic anemia with abundant elliptocytes. Few target cells are noted. Platelets appear adequate in number with no significant platelet clumps identified. Note: The patient has had persistent leukopenia (with a rare exception on 10/07/2024, when the WBC was 8,400 per microliter with an absolute neutrophilia. A definitive morphologic cause for the patient's leukopenia is not identified. Although elliptocytes/ova locytes and hypochromasia can be seen in the setting of iron deficiency, the possibility of a structural abnormality of the red blood cells (such as a form of hereditary elliptocytosis) could be considered. Possible causes of persistent cytopenias include nutritional deficiencies, medication/toxin effects and other etiologies. Clinical correlation is recommended. 11/26/2024 9:40 AM EDT [facility] Blood Venous blood specimen / Unknown 11/26/2024 6:20 AM EDT 11/26/2024 7:28 AM EDT us Jeramie Schwartz MD LAB BLOOD ORDERABLES Final Resul t Performing Organization Address [facility]/ZIP Co de Phone Number [facility] [address] [place] [address], [place] [phone] * Prostate specific antigen diagnostic (11/26/2024 6:20 AM EDT) PSA 0.64 0.00 - 4.00 ng/mL LAB CHEMISTRY METHOD 11/26/2024 10:50 AM EDT [facility] Blood Venous blood specimen / Unknown 11/26/2024 6:20 AM EDT 11/26/2024 7:28 AM EDT Narrative [facility] - 11/26/2024 10:50 AM EDT The Siemens Advia Trefisaur Chemiluminescent Immunoassay is used. Results obtained with different assay methods or kits cannot be used interchangeably. Results cannot be interpreted as absolute evidence of the presence or absence of malignant disease. us Jeramie Schwartz MD LAB BLOOD ORDERABLES Final Resul t Performing Organization Address [facility] de Phone Number [facility] [address] [place] [address], * Creatinine (11/26/2024 6:20 AM EDT) Creatinine 1.02 0.70 - 1.30 mg/dL LAB CHEMISTRY METHOD 11/26/2024 8:26 AM EDT [facility] eGFR 80 >=60 mL/min/1. 73m2 LAB CHEMISTRY METHOD 11/26/2024 8:26 AM EDT [facility] Comment:Calculation based on the Chronic Kidney Disease Epidemiology Collaboration (CKD-EPI) equation refit without adjustment for race. Blood Venous blood specimen / Unknown 11/26/2024 6:20 AM EDT 11/26/2024 7:28 AM EDT us Jeramie Schwartz MD LAB BLOOD ORDERABLES Final Resul t Performing Organization Address [facility] Co de Phone Number [facility] [address] [place] [address], * BUN (11/26/2024 6:20 AM EDT) BUN 16 5 - 25 mg/dL LAB CHEMISTRY METHOD 11/26/2024 8:26 AM EDT [facility] Blood Venous blood specimen / Unknown 11/26/2024 6:20 AM EDT 11/26/2024 7:28 AM EDT us Jeramie Schwartz MD LAB BLOOD ORDERABLES Final Resul t Performing Organization Address [facility]/ZIP Co de Phone Number [facility] [address] [place] [address], [place] [phone] * Pregabalin (10/21/2024 6:20 AM EDT) Pregabalin 8.8 ug/mL 10/23/2024 4:05 PM EDT [facility] Comment: Therapeutic and toxic ranges have not been established. Expected steady state pregabalin concentrations in patients taking recommended daily dosages: up to 10 ug/mL. This test was developed and its performance characteristics determined by [facility]. It has not been cleared or approved by the Food and Drug Administration. Blood Venous blood specimen / Unknown 10/21/2024 6:20 AM EDT 10/21/2024 7:33 AM EDT Narrative [facility] - 10/23/2024 4:05 PM EDT Performed at: [facility] [place] [address] [id number] Oil Processing Technician: Michelle Jimenez [facility], Phone: [phone] us Jeramie Schwartz MD LAB BLOOD ORDERABLES Final Resul t [facility] * Levetiracetam level (10/21/2024 6:20 AM EDT) Levetiracetam 48.5 3.0 - 60.0 ug/mL 10/23/2024 5:26 AM EDT [facility] Comment: Steady state trough serum or plasma levels following doses of 1000 to 3000 mg/Day: 3 to 37 ug/mL. The same dosage regimen will typically result in peak levels of 10 to 60 ug/mL, at approximately 1.5 hours post dose. If applicable, any drug confirmation testing reported here was developed and the performance characteristics determined by [facility]. This confirmation testing has not been cleared or approved by the FDA. The laboratory is regulated under CLIA as qualified to perform high-complexity testing. This test is used for patient testing purposes. It should not be regarded as investigational or for research. Test performed at [facility], [address], [place] [address] Marcy Abarca MD, PhD - Web Development Intern Blood Venous blood specimen / Unknown 10/21/2024 6:20 AM EDT 10/21/2024 7:33 AM EDT us Jeramie Schwartz MD LAB BLOOD ORDERABLES Final Resul t [facility] [address] [place] [address] * (ABNORMAL) Comprehensive metabolic panel (10/21/2024 6:20 AM EDT) Sodium 141 133 - 145 mmol/L LAB CHEMISTRY METHOD 10/21/2024 8:24 AM [facility] Potassium 4.0 3.5 - 5.5 mmol/L LAB CHEMISTRY METHOD 10/21/2024 8:24 AM [facility] Chloride 107 96 - 110 mmol/L LAB CHEMISTRY METHOD 10/21/2024 8:24 AM [facility] CO2 30 21 - 32 mmol/L LAB CHEMISTRY METHOD 10/21/2024 8:24 AM [facility] Anion Gap 4 3 - 11 LAB CHEMISTRY METHOD 10/21/2024 8:24 AM [facility] Glucose 87 70 - 100 mg/dL LAB CHEMISTRY METHOD 10/21/2024 8:24 AM [facility] BUN 13 5 - 25 mg/dL LAB CHEMISTRY METHOD 10/21/2024 8:24 AM [facility] Creatinine 0.97 0.70 - 1.30 mg/dL LAB CHEMISTRY METHOD 10/21/2024 8:24 AM [facility] eGFR 85 >=60 mL/min/1. 73m2 LAB CHEMISTRY METHOD 10/21/2024 8:24 AM [facility] Comment:Calculation based on the Chronic Kidney Disease Epidemiology Collaboration (CKD-EPI) equation refit without adjustment for race. BUN/Creatinine Ratio 13.4 LAB CHEMISTRY METHOD 10/21/2024 8:24 AM [facility] Calcium 8.9 8.5 - 10.5 mg/dL LAB CHEMISTRY METHOD 10/21/2024 8:24 AM [facility] AST (SGOT) 13 10 - 42 unit/L LAB CHEMISTRY METHOD 10/21/2024 8:24 AM [facility] ALT (SGPT) 17 10 - 60 unit/L LAB CHEMISTRY METHOD 10/21/2024 8:24 AM [facility] Alkaline Phosphatase 94 42 - 121 unit/L LAB CHEMISTRY METHOD 10/21/2024 8:24 AM [facility] Total Protein 6.5 6.0 - 8.0 g/dL LAB CHEMISTRY METHOD 10/21/2024 8:24 AM [facility] Albumin 2.8(L) 3.2 - 5.0 g/dL LAB CHEMISTRY METHOD 10/21/2024 8:24 AM [facility] Total Bilirubin 0.3 0.0 - 1.4 mg/dL LAB CHEMISTRY METHOD 10/21/2024 8:24 AM [facility] Blood Venous blood specimen / Unknown 10/21/2024 6:20 AM EDT 10/21/2024 7:33 AM EDT us Jeramie Schwartz MD LAB BLOOD ORDERABLES Final Resul t [facility] [address] [place] [address], [place] [phone] * (ABNORMAL) Occult blood stool, guaiac (09/04/2024 10:45 AM EDT) Occult Blood, Stool #1 Positive( A) Negative 09/04/2024 5:13 PM EDT [facility] Stool Rectum structure / Unknown 09/04/2024 10:45 AM EDT 09/04/2024 3:26 PM EDT us Jeramie Schwartz MD LAB BODY FLUIDS AND STOOLS ORDER VELMA Final Result [facility] ([facility] [address] [place] [address], [place] [phone] from Last 3 Months or Most Recently Relevant to Health Maintenance Insurance MEDICARE [place]ICAID - [place] Member Subscriber Plan / Payer (Ef fective 2024-Present) Name:Silvio Amor Member ID:[id number] Relation to Subscriber:Self Name:Silvio Amor Subscriber ID:[id number] Payer ID:[id number] Group ID:Not on file Type:Not on file Address: [address] [place] [id number] Care Teams Fellmongery Worker Relationship Specialty Start Date End Date Jeramie Schwartz MD [address] [place] [address] [address] MARS Chaudhry PCP - General Internal Medicine 06/02/24
--- OUTSIDE RECORDS SUMMARY | 2025-01-14 11:49 | XMS_ITS | Encounter Summary ---
Author Organization [employer] Address [address] [place] [address] Care Team Providers Care Scientific Aide Name Role Phone Jeramie Schwartz MD Primary Care Provider [phone] Encounter Details Date Type Department Care Team (Latest Contact Info) Description 07/07/2024 Lab Requisition [facility] - Main Lab [address] [facility] [place] [address] Jeramie Schwartz MD [address] [place] [address] Dr [address] [place], [place] Diffuse traumatic brain injury with loss [...] LAB CHEMISTRY METHOD 07/07/2024 2:30 PM EST [facility] Mean Bld Glu Estim. 108 mg/dL LAB CHEMISTRY METHOD 07/07/2024 2:30 PM EST [facility] Blood Venous blood specimen / Unknown 07/07/2024 6:53 AM EST 07/07/2024 8:36 AM EST us Jeramie Schwartz MD LAB BLOOD ORDERABLES Final Resul t [facility] [address] [place] [address], * (ABNORMAL) CBC auto differential (07/07/2024 6:53 AM EST) WBC 4.7(L) 4.8 - 10.8 K/mcL LAB HEMETOLOGY METHOD 07/07/2024 9:44 AM EST [facility] RBC 4.00(L) 4.50 - 5.50 M/mcL LAB HEMETOLOGY METHOD 07/07/2024 9:44 AM EST [facility] Hemoglobin 10.4(L) 13.5 - 17.5 g/dL LAB HEMETOLOGY METHOD 07/07/2024 9:44 AM [facility] Hematocrit 33.5(L) 42.0 - 54.0 % LAB HEMETOLOGY METHOD 07/07/2024 9:44 AM [facility] MCV 84.2 79.0 - 98.0 FL LAB HEMETOLOGY METHOD 07/07/2024 9:44 AM [facility] MCH 26.1(L) 27.0 - 32.0 pcg LAB HEMETOLOGY METHOD 07/07/2024 9:44 AM [facility] MCHC 31.0(L) 32.0 - 37.0 g/dL LAB HEMETOLOGY METHOD 07/07/2024 9:44 AM [facility] RDW 19.0(H) 11.0 - 15.0 % LAB HEMETOLOGY METHOD 07/07/2024 9:44 AM [facility] Platelets 275 130 - 400 K/mcL LAB HEMETOLOGY METHOD 07/07/2024 9:44 AM [facility] MPV 10.9 7.0 - 11.0 FL LAB HEMETOLOGY METHOD 07/07/2024 9:44 AM [facility] NRBC 0.0 <1.0 % LAB HEMETOLOGY METHOD 07/07/2024 9:44 AM [facility] NRBC Absolute 0.00 <0.10 K/mcL LAB HEMETOLOGY METHOD 07/07/2024 9:44 AM [facility] Neutrophils Relative 65.9 % LAB HEMETOLOGY METHOD 07/07/2024 9:44 AM [facility] Lymphocytes Relative 15.7 % LAB HEMETOLOGY METHOD 07/07/2024 9:44 AM [facility] Monocytes Relative 12.9 % LAB HEMETOLOGY METHOD 07/07/2024 9:44 AM [facility] Eosinophils Relative 4.5 % LAB HEMETOLOGY METHOD 07/07/2024 9:44 AM [facility] Basophils Relative 0.4 % LAB HEMETOLOGY METHOD 07/07/2024 9:44 AM [facility] Immature Granulocytes Relative 0.6 % LAB HEMETOLOGY METHOD 07/07/2024 9:44 AM [facility] Neutrophils Absolute 3.06 1.50 - 7.00 K/mcL LAB HEMETOLOGY METHOD 07/07/2024 9:44 AM [facility] Lymphocytes Absolute 0.73(L) 1.00 - 5.00 K/mcL LAB HEMETOLOGY METHOD 07/07/2024 9:44 AM [facility] Monocytes Absolute 0.60 0.20 - 1.00 K/mcL LAB HEMETOLOGY METHOD 07/07/2024 9:44 AM EST [facility] Eosinophils Absolute 0.21 0.00 - 0.50 K/mcL LAB HEMETOLOGY METHOD 07/07/2024 9:44 AM [facility] Basophils Absolute 0.02 0.00 - 0.20 K/mcL LAB HEMETOLOGY METHOD 07/07/2024 9:44 AM [facility] Immature Granulocytes Absolute 0.03 0.00 - 0.03 K/mcL LAB HEMETOLOGY METHOD 07/07/2024 9:44 AM [facility] Blood Venous blood specimen / Unknown 07/07/2024 6:53 AM EST 07/07/2024 8:36 AM EST us Jeramie Schwartz MD LAB BLOOD ORDERABLES Final Resul t [facility] [address] [place] [address], documented in this encounter Visit Diagnoses Diagnosis 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 unspecified duration, sequela ([facility] V24) Acute embolism and thrombosis of unspecified deep veins of right lower extremity ([facility] V24, [facility] V28) Hyperlipidemia, unspecified Vitamin D deficiency, unspecified Type 2 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, left eye ([facility] V24, [facility] V28) documented in this encounter Care Teams Scientific Aide Relationship Specialty Start Date End Date Jeramie Schwartz MD [address] [place] [address] Dr [address] [place] PCP - General Internal Medicine 06/02/24 documented as of this encounter
--- OUTSIDE RECORDS SUMMARY | 2025-01-14 11:49 | XMS_ITS | Encounter Summary ---
Author Organization [facility] Address [address] [place] [address] Care Team Providers Care Sap Bobj Developer Name Role Phone Jeramie Schwartz MD Primary Care Provider [phone] Encounter Details Date Type Department Care Team (Late st Contact Info) Description 07/27/2024 Lab Requisition [facility] - Main Lab [address] [facility] [place] [address] Jeramie Schwartz MD [address] [place] [address] Dr [address] [place], [place] Benign prostatic hyperplasia without lower urinary [...] LAB CHEMISTRY METHOD 07/27/2024 5:44 AM EDT [facility] eGFR 80 >=60 mL/min/1. 73m2 LAB CHEMISTRY METHOD 07/27/2024 5:44 AM EDT [facility] Comment:Calculation based on the Chronic Kidney Disease Epidemiology Collaboration (CKD-EPI) equation refit without adjustment for race. Blood Venous blood specimen / Unknown 07/27/2024 4:44 AM EDT 07/27/2024 5:27 AM EDT us Jeramie Schwartz MD LAB BLOOD ORDERABLES Final Resul t Performing Organization Address [facility] Co de Phone Number [facility] [address] [place] [address], [place] [phone] * BUN (07/27/2024 4:44 AM EDT) BUN 18 5 - 25 mg/dL LAB CHEMISTRY METHOD 07/27/2024 5:44 AM EDT [facility] Blood Venous blood specimen / Unknown 07/27/2024 4:44 AM EDT 07/27/2024 5:27 AM EDT us Jeramie Schwartz MD LAB BLOOD ORDERABLES Final Resul t Performing Organization Address [facility] de Phone Number [facility] [address] [place] [address], [place] [phone] documented in this encounter Visit Diagnoses Diagnosis Benign prostatic hyperplasia without lower urinary tract symptoms documented in this encounter Care Teams Sap Bobj Developer Relationship Specialty Start Date End Date Jeramie Schwartz MD [address] [place] PCP - General Internal Medicine 06/02/24 documented as of this encounter
--- OUTSIDE RECORDS SUMMARY | 2025-01-14 11:49 | XMS_ITS | Encounter Summary ---
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, sequela (CMS/HCC V24); Vitamin D deficiency, unspecified Social History Tobacco [...] Diagnosis Comments CBC WITH AUTO DIFFERENTIAL Routine 10/01/2024 6:55 AM EDT 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0 - 98.0 FL LAB HEMETOLOGY METHOD 10/01/2024 7:59 AM [facility] MCH 25.6(L) 27.0 - 32.0 pcg LAB HEMETOLOGY METHOD 10/01/2024 7:59 AM [facility] MCHC 30.8(L) 32.0 - 37.0 g/dL LAB HEMETOLOGY METHOD 10/01/2024 7:59 AM [facility] RDW 16.4(H) 11.0 - 15.0 % LAB HEMETOLOGY METHOD 10/01/2024 7:59 AM [facility] Platelets 186 130 - 400 K/mcL LAB HEMETOLOGY METHOD 10/01/2024 7:59 AM [facility] MPV 13.1(H) 7.0 - 11.0 FL LAB HEMETOLOGY METHOD 10/01/2024 7:59 AM [facility] NRBC 0.0 <1.0 % LAB HEMETOLOGY METHOD 10/01/2024 7:59 AM [facility] NRBC Absolute 0.00 <0.10 K/mcL LAB HEMETOLOGY METHOD 10/01/2024 7:59 AM [facility] Neutrophils Relative 42.6 % LAB HEMETOLOGY METHOD 10/01/2024 7:59 AM [facility] Lymphocytes Relative 31.2 % LAB HEMETOLOGY METHOD 10/01/2024 7:59 AM [facility] Monocytes Relative 17.0 % LAB HEMETOLOGY METHOD 10/01/2024 7:59 AM [facility] Eosinophils Relative 8.2 % LAB HEMETOLOGY METHOD 10/01/2024 7:59 AM [facility] Basophils Relative 0.5 % LAB HEMETOLOGY METHOD 10/01/2024 7:59 AM [facility] Immature Granulocytes Relative 0.5 % LAB HEMETOLOGY METHOD 10/01/2024 7:59 AM [facility] Neutrophils Absolute 1.55 1.50 - 7.00 K/mcL LAB HEMETOLOGY METHOD 10/01/2024 7:59 AM [facility] Lymphocytes Absolute 1.14 1.00 - 5.00 K/mcL LAB HEMETOLOGY METHOD 10/01/2024 7:59 AM [facility] Monocytes Absolute 0.62 0.20 - 1.00 K/mcL LAB HEMETOLOGY METHOD 10/01/2024 7:59 AM [facility] Eosinophils Absolute 0.30 0.00 - 0.50 K/mcL LAB HEMETOLOGY METHOD 10/01/2024 7:59 AM [facility] Basophils Absolute 0.02 0.00 - 0.20 K/mcL LAB HEMETOLOGY METHOD 10/01/2024 7:59 AM [facility] Immature Granulocytes Absolute 0.02 0.00 - 0.03 K/mcL LAB HEMETOLOGY METHOD 10/01/2024 7:59 AM [facility] Blood Venous blood specimen / Unknown 10/01/2024 6:55 AM EDT 10/01/2024 7:26 AM EDT us Jeramie Schwartz MD LAB BLOOD ORDERABLES Final Resul t [facility] [address] [place] [address], documented in this encounter Visit Diagnoses Diagnosis 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
--- OUTSIDE RECORDS SUMMARY | 2025-01-14 11:50 | XMS_ITS | Encounter Summary ---
Author Organization [employer] [facility] Address [address] [place] [address] Care Team Providers Care Program Evaluator Name Role Phone Jeramie Schwartz MD Primary Care Provider [phone] Encounter Details Date Type Department Care Team (Late st Contact Info) Description 04/08/2024 Lab Requisition [facility] - Main Lab [address] [facility] [place] [address] Jeramie Schwartz MD [address] [place] [address] Dr [address] [place], [place] Diffuse traumatic brain injury with loss of [...] % LAB HEMETOLOGY METHOD 04/08/2024 9:53 AM [facility] Bands % 1.0 % LAB HEMETOLOGY METHOD 04/08/2024 9:53 AM [facility] Lymphocytes % 34.0 % LAB HEMETOLOGY METHOD 04/08/2024 9:53 AM [facility] Monocytes % 15.0 % LAB HEMETOLOGY METHOD 04/08/2024 9:53 AM [facility] Eosinophils % 16.0 % LAB HEMETOLOGY METHOD 04/08/2024 9:53 AM [facility] Basophils % 1.0 % LAB HEMETOLOGY METHOD 04/08/2024 9:53 AM [facility] Neutrophils Absolute Manual 0.88(L) 1.50 - 7.00 K/mcL LAB HEMETOLOGY METHOD 04/08/2024 9:53 AM [facility] Bands Absolute Manual 0.03(H) 0.00 - 0.00 K/mcL LAB HEMETOLOGY METHOD 04/08/2024 9:53 AM [facility] Lymphocytes Absolute 0.88(L) 1.00 - 5.00 K/mcL LAB HEMETOLOGY METHOD 04/08/2024 9:53 AM [facility] Monocytes Absolute Manual 0.39 0.20 - 1.00 K/mcL LAB HEMETOLOGY METHOD 04/08/2024 9:53 AM [facility] Eosinophils Absolute Manual 0.42 0.00 - 0.50 K/mcL LAB HEMETOLOGY METHOD 04/08/2024 9:53 AM [facility] Basophils Absolute Manual 0.03 0.00 - 0.20 K/mcL LAB HEMETOLOGY METHOD 04/08/2024 9:53 AM [facility] Rbc Morphology Present( A) Consistent with indices, Normal for LAB HEMETOLOGY METHOD 04/08/2024 9:53 AM [facility] Platelet Morphology - WAM See Note(A) Normal LAB HEMETOLOGY METHOD 04/08/2024 9:53 AM [facility] Comment:PLT: Normal Ovalocytes Present 11 - 15%(A) (none) LAB HEMETOLOGY METHOD 04/08/2024 9:53 AM [facility] Blood Venous blood specimen / Unknown 04/08/2024 6:31 AM EST 04/08/2024 8:43 AM EST us Jeramie Schwartz MD LAB BLOOD ORDERABLES Final Resul t Performing Organization Address City/[facility]/ZIP Co de Phone Number [facility] [address] [place] [address], [place] [phone] * Lavender tube (04/08/2024 6:31 AM EST) Extra Tube Hold for add-ons. 04/08/2024 10:01 AM EST [facility] Comment:Auto resulted. Blood Venous blood specimen / Unknown 04/08/2024 6:31 AM EST 04/08/2024 8:43 AM EST us Jeramie Schwartz MD LAB BLOOD ORDERABLES Final Resul t Performing Organization Address City/[facility]/ZIP Co de Phone Number [facility] [address] [place] [address], [place] [phone] * (ABNORMAL) CBC auto differential (04/08/2024 6:31 AM EST) WBC 2.6(L) 4.8 - 10.8 K/mcL LAB HEMETOLOGY METHOD 04/08/2024 9:53 AM [facility] RBC 3.80(L) 4.50 - 5.50 M/mcL LAB HEMETOLOGY METHOD 04/08/2024 9:53 AM [facility] Hemoglobin 9.6(L) 13.5 - 17.5 g/dL LAB HEMETOLOGY METHOD 04/08/2024 9:53 AM [facility] Hematocrit 31.5(L) 42.0 - 54.0 % LAB HEMETOLOGY METHOD 04/08/2024 9:53 AM [facility] MCV 83.6 79.0 - 98.0 FL LAB HEMETOLOGY METHOD 04/08/2024 9:53 AM [facility] MCH 25.5(L) 27.0 - 32.0 pcg LAB HEMETOLOGY METHOD 04/08/2024 9:53 AM [facility] MCHC 30.5(L) 32.0 - 37.0 g/dL LAB HEMETOLOGY METHOD 04/08/2024 9:53 AM [facility] RDW 16.3(H) 11.0 - 15.0 % LAB HEMETOLOGY METHOD 04/08/2024 9:53 AM [facility] Platelets 338 130 - 400 K/mcL LAB HEMETOLOGY METHOD 04/08/2024 9:53 AM [facility] MPV 11.9(H) 7.0 - 11.0 FL LAB HEMETOLOGY METHOD 04/08/2024 9:53 AM [facility] NRBC 0.0 <1.0 % LAB HEMETOLOGY METHOD 04/08/2024 9:53 AM [facility] NRBC Absolute 0.00 <0.10 K/mcL LAB HEMETOLOGY METHOD 04/08/2024 9:53 AM [facility] Blood Venous blood specimen / Unknown 04/08/2024 6:31 AM EST 04/08/2024 8:43 AM EST us Jeramie Schwartz MD LAB BLOOD ORDERABLES Final Resul t Performing Organization Address [facility]/ZIP Co de Phone Number [facility] [address] [place] [address], [place] [phone] * Hemoglobin A1c (04/08/2024 6:31 AM EST) [...] ORDERABLES Final Resul t Performing Organization Address [facility]/ZIP Co de Phone Number [facility] [address] [place] [address], [place] [phone] documented in this encounter Visit Diagnoses Diagnosis 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 unspecified duration, sequela (CMS/HCC V24) documented in this encounter Care Teams Program Evaluator Relationship Specialty Start Date End Date Jeramie Schwartz MD [address] [place] [address] Dr [address] [place] PCP - General Internal Medicine 06/02/24 documented as of this encounter
--- OUTSIDE RECORDS SUMMARY | 2025-01-14 11:50 | XMS_ITS | Encounter Summary ---
Author Organization [facility] [place] [facility] Address [address] [place] [address] Care Team Providers Care Lacing String Cutter Name Role Phone Jeramie Schwartz MD Primary Care Provider Encounter Details Date Type Department Care Team (Late st Contact Info) Description 03/26/2024 Lab Requisition [facility] - Main Lab [address] [place] [address] Jeramie Schwartz MD [address] [place] [address] Dr [address] [place] Diffuse traumatic brain injury with loss of [...] AM EST) WBC 3.0(L) 4.8 - 10.8 K/[facility] LAB HEMETOLOGY METHOD 03/26/2024 7:46 AM EST [facility] RBC 3.80(L) 4.50 - 5.50 M/mcL LAB HEMETOLOGY METHOD 03/26/2024 7:46 AM [facility] Hemoglobin 9.8(L) 13.5 - 17.5 g/dL LAB HEMETOLOGY METHOD 03/26/2024 7:46 AM [facility] Hematocrit 31.5(L) 42.0 - 54.0 % LAB HEMETOLOGY METHOD 03/26/2024 7:46 AM [facility] MCV 83.8 79.0 - 98.0 FL LAB HEMETOLOGY METHOD 03/26/2024 7:46 AM [facility] MCH 26.1(L) 27.0 - 32.0 pcg LAB HEMETOLOGY METHOD 03/26/2024 7:46 AM [facility] MCHC 31.1(L) 32.0 - 37.0 g/dL LAB HEMETOLOGY METHOD 03/26/2024 7:46 AM [facility] RDW 15.9(H) 11.0 - 15.0 % LAB HEMETOLOGY METHOD 03/26/2024 7:46 AM [facility] Platelets 263 130 - 400 K/mcL LAB HEMETOLOGY METHOD 03/26/2024 7:46 AM [facility] MPV 9.7 7.0 - 11.0 FL LAB HEMETOLOGY METHOD 03/26/2024 7:46 AM [facility] NRBC 0.0 <1.0 % LAB HEMETOLOGY METHOD 03/26/2024 7:46 AM [facility] NRBC Absolute 0.00 <0.10 K/mcL LAB HEMETOLOGY METHOD 03/26/2024 7:46 AM [facility] Neutrophils Relative 47.8 % LAB HEMETOLOGY METHOD 03/26/2024 7:46 AM [facility] Lymphocytes Relative 26.7 % LAB HEMETOLOGY METHOD 03/26/2024 7:46 AM [facility] Monocytes Relative 14.9 % LAB HEMETOLOGY METHOD 03/26/2024 7:46 AM [facility] Eosinophils Relative 9.6 % LAB HEMETOLOGY METHOD 03/26/2024 7:46 AM [facility] Basophils Relative 0.7 % LAB HEMETOLOGY METHOD 03/26/2024 7:46 AM [facility] Immature Granulocytes Relative 0.3 % LAB HEMETOLOGY METHOD 03/26/2024 7:46 AM [facility] Neutrophils Absolute 1.45(L) 1.50 - 7.00 K/mcL LAB HEMETOLOGY METHOD 03/26/2024 7:46 AM [facility] Lymphocytes Absolute 0.81(L) 1.00 - 5.00 K/mcL LAB HEMETOLOGY METHOD 03/26/2024 7:46 AM [facility] Monocytes Absolute 0.45 0.20 - 1.00 K/mcL LAB HEMETOLOGY METHOD 03/26/2024 7:46 AM [facility] Eosinophils Absolute 0.29 0.00 - 0.50 K/mcL LAB HEMETOLOGY METHOD 03/26/2024 7:46 AM [facility] Basophils Absolute 0.02 0.00 - 0.20 K/mcL LAB HEMETOLOGY METHOD 03/26/2024 7:46 AM [facility] Immature Granulocytes Absolute 0.01 0.00 - 0.03 K/mcL LAB HEMETOLOGY METHOD 03/26/2024 7:46 AM [facility] Blood Venous blood specimen / Unknown 03/26/2024 6:55 AM EST 03/26/2024 7:35 AM EST us Jeramie Schwartz MD LAB BLOOD ORDERABLES Final Resul t [facility] [address] [place] [address], documented in this encounter Visit Diagnoses Diagnosis 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 unspecified duration, sequela (CMS/HCC V24) documented in this encounter Care Teams Lacing String Cutter Relationship Specialty Start Date End Date Jeramie Schwartz MD [address] [place] [address] Dr [address] [place] PCP - General Internal Medicine 06/02/24 documented as of this encounter
--- OUTSIDE RECORDS SUMMARY | 2025-01-14 11:50 | XMS_ITS | Encounter Summary ---
Author Organization [facility] Address [address] [place] [address] Care Team Providers Care Fitter Hand Name Role Phone Jeramie Schwartz MD Primary Care Provider Encounter Details Date Type Department Care Team (Late st Contact Info) Description 10/07/2024 Lab Requisition [facility] - Main Lab [address] [place] [address] Jeramie Schwartz MD [address] [place] [address] Dr [address] [place] Other work counselor (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 Social History Tobacco Use [...] Procedure Name Priority Date/Time Associated Diagnosis Comments SST - GOLD Routine 10/07/2024 7:05 AM EDT Other work counselor (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 CBC WITH AUTO DIFFERENTIAL Routine 10/07/2024 7:05 AM EDT Other senior living (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 CBC AND DIFFERENTIAL Routine 10/07/2024 7:05 AM EDT Other work counselor (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 documented in this encounter Results * (ABNORMAL) CBC auto differential (10/07/2024 7:05 AM EDT) [facility] Signature WBC 8.6 4.8 - 10.8 K/[facility] LAB HEMETOLOGY METHOD 10/07/2024 8:47 AM EDT [facility] RBC 4.80 4.50 - 5.50 M/[facility] LAB HEMETOLOGY METHOD 10/07/2024 8:47 AM [facility] Hemoglobin 12.4(L) 13.5 - 17.5 g/dL LAB HEMETOLOGY METHOD 10/07/2024 8:47 AM [facility] LAB Hematocrit 39.5(L) 42.0 - 54.0 % LAB HEMETOLOGY METHOD 10/07/2024 8:47 AM [facility] LAB MCV 82.5 79.0 - 98.0 FL LAB HEMETOLOGY METHOD 10/07/2024 8:47 AM [facility] LAB MCH 25.9(L) 27.0 - 32.0 pcg LAB HEMETOLOGY METHOD 10/07/2024 8:47 AM [facility] LAB MCHC 31.4(L) 32.0 - 37.0 g/dL LAB HEMETOLOGY METHOD 10/07/2024 8:47 AM [facility] LAB RDW 16.0(H) 11.0 - 15.0 % LAB HEMETOLOGY METHOD 10/07/2024 8:47 AM [facility] LAB Platelets 182 130 - 400 K/mcL LAB HEMETOLOGY METHOD 10/07/2024 8:47 AM [facility] LAB MPV LAB HEMETOLOGY METHOD 10/07/2024 8:47 AM [facility] LAB Comment:Not Measured NRBC 0.2 <1.0 % LAB HEMETOLOGY METHOD 10/07/2024 8:47 AM [facility] LAB NRBC Absolute 0.02 <0.10 K/mcL LAB HEMETOLOGY METHOD 10/07/2024 8:47 AM [facility] LAB Neutrophils Relative 90.9 % LAB HEMETOLOGY METHOD 10/07/2024 8:47 AM [facility] Lymphocytes Relative 4.1 % LAB HEMETOLOGY METHOD 10/07/2024 8:47 AM [facility] Monocytes Relative 4.2 % LAB HEMETOLOGY METHOD 10/07/2024 8:47 AM [facility] Eosinophils Relative 0.1 % LAB HEMETOLOGY METHOD 10/07/2024 8:47 AM [facility] Basophils Relative 0.2 % LAB HEMETOLOGY METHOD 10/07/2024 8:47 AM [facility] Immature Granulocytes Relative 0.5 % LAB HEMETOLOGY METHOD 10/07/2024 8:47 AM [facility] LAB Neutrophils Absolute 7.79(H) 1.50 - 7.00 K/mcL LAB HEMETOLOGY METHOD 10/07/2024 8:47 AM [facility] LAB Lymphocytes Absolute 0.35(L) 1.00 - 5.00 K/mcL LAB HEMETOLOGY METHOD 10/07/2024 8:47 AM [facility] LAB Monocytes Absolute 0.36 0.20 - 1.00 K/mcL LAB HEMETOLOGY METHOD 10/07/2024 8:47 AM [facility] Eosinophils Absolute 0.01 0.00 - 0.50 K/mcL LAB HEMETOLOGY METHOD 10/07/2024 8:47 AM [facility] Basophils Absolute 0.02 0.00 - 0.20 K/mcL LAB HEMETOLOGY METHOD 10/07/2024 8:47 AM [facility] LAB Immature Granulocytes Absolute 0.04(H) 0.00 - 0.03 K/mcL LAB HEMETOLOGY METHOD 10/07/2024 8:47 AM [facility] Blood Venous blood specimen / Unknown 10/07/2024 7:05 AM EDT 10/07/2024 8:02 AM EDT Jeramie Schwartz MD LAB BLOOD ORDERABLES Final Resul t [facility] [address] [place] [address], [place] [phone] * SST tube (10/07/2024 7:05 AM EDT) Extra Tube Hold for add-ons. 10/07/2024 10:01 AM EDT [facility] Comment:Auto resulted. Blood Venous blood specimen / Unknown 10/07/2024 7:05 AM EDT 10/07/2024 8:02 AM EDT Jeramie Schwartz MD LAB BLOOD ORDERABLES Final Resul t Performing Organization Address [facility] Co de Phone Number [facility] [address] [place] [address], [place] [phone] documented in this encounter Visit Diagnoses Diagnosis Other work counselor (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 documented in this encounter Care Teams Fitter Hand Relationship Specialty Start Date End Date Jeramie Schwartz MD [address] [place], [place] PCP - General Internal Medicine 06/02/24 documented as of this encounter
--- OUTSIDE RECORDS SUMMARY | 2025-01-14 11:50 | XMS_ITS | Encounter Summary ---
Author Organization [facility] Address [address] [place] [address] Care Team Providers Care Thread Winder Automatic Name Role Phone Jeramie Schwartz MD Primary Care Provider [phone] Encounter Details Date Type Department Care Team (Late st Contact Info) Description 08/25/2024 Lab Requisition [facility] - Main Lab [address] [facility] [place] [address] Jeramie Shcwartz MD [address] [place] [address] Dr [address] [place], [place] Other intermission coordinator (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 Social History Tobacco Use [...] PREGABALIN Routine 08/25/2024 5:20 AM EDT Other intermission coordinator (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 LEVETIRACETAM LEVEL Routine 08/25/2024 5 :20 AM EDT Other intermediate (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 documented in this encounter [...] - 08/28/2024 5:05 PM EDT Performed at: - [employer] [address] [place] [id number] Offset Press Assistant: Michelle Jimenez [facility], Phone: [phone] Jeramie Schwartz MD LAB BLOOD ORDERABLES Final Resul t Performing Organization Address City/[facility] Co de Phone Number [facility] * Levetiracetam level (08/25/2024 5:20 AM EDT) [facility] Levetiracetam 12.0 3.0 - 60.0 ug/mL 08/27/2024 5:48 AM EDT [facility] Comment: Steady state trough serum or plasma levels following doses of 1000 to 3000 mg/Day: 3 to 37 ug/mL. The same dosage regimen will typically result in peak levels of 10 to 60 ug/mL, at approximately 1.5 hours post dose. If applicable, any drug confirmation testing reported here was developed and the performance characteristics determined by [facility]. This confirmation testing has not been cleared or approved by the FDA. The laboratory is regulated under CLIA as qualified to perform high-complexity testing. This test is used for patient testing purposes. It should not be regarded as investigational or for research. Test performed at [facility], [address] , [place] [address] Marcy Abarca MD, PhD - Rotary Dryer Operator Blood Venous blood specimen / Unknown 08/25/2024 5:20 AM EDT 08/25/2024 6:33 AM EDT us Jeramie Schwartz MD LAB BLOOD ORDERABLES Final Resul t Performing Organization Address [facility] Co de Phone Number [facility] [address] [place] [address] documented in this encounter Visit Diagnoses Diagnosis Other intermission coordinator (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 documented in this encounter Care Teams Thread Winder Automatic Relationship Specialty Start Date End Date Jeramie Schwartz MD [address] [place] [address] Dr [address] [place] Chaudhry PCP - General Internal Medicine 06/02/24 documented as of this encounter
--- OUTSIDE RECORDS SUMMARY | 2025-01-14 11:50 | XMS_ITS | Encounter Summary ---
Author Organization [facility] Address [address] [place] [address] Care Team Providers Care Apprentice Plant Attendant Name Role Phone Jeramie Schwartz MD Primary Care Provider Encounter Details Date Type Department Care Team (Late st Contact Info) Description 10/21/2024 Lab Requisition [facility] - Main Lab [address] [facility] [place] [address] Jeramie Schwartz MD [address] [place] [address] Dr [address] [place] Encounter for therapeutic drug level monitoring Social History Tobacco Use Types Packs/Day Years [...] Priority Date/Time Associated Diagnosis Comments PREGABALIN Routine 10/21/2024 6:20 AM EDT Encounter for therapeutic drug level monitoring CBC WITH AUTO DIFFERENTIAL Routine 10/21/2024 6:20 AM EDT Encounter for therapeutic drug level monitoring LEVETIRACETAM LEVEL Routine 10/21/2024 6 :20 AM EDT Encounter for therapeutic drug level monitoring CBC AND DIFFERENTIAL Routine 10/21/2024 6:20 AM EDT Encounter for therapeutic drug level monitoring COMPREHENSIVE METABOLIC PANEL Routine 10/21/2024 6:20 AM EDT Encounter for therapeutic drug level monitoring documented in this encounter Results * (ABNORMAL) CBC auto differential (10/21/2024 6:20 AM EDT) WBC 2.6(L) 4.8 - 10.8 K/mcL LAB HEMETOLOGY METHOD 10/21/2024 7:52 AM [facility] RBC 4.80 4.50 - 5.50 M/mcL LAB HEMETOLOGY METHOD 10/21/2024 7:52 AM [facility] Hemoglobin 12.5(L) 13.5 - 17.5 g/dL LAB HEMETOLOGY METHOD 10/21/2024 7:52 AM [facility] Hematocrit 39.9(L) 42.0 - 54.0 % LAB HEMETOLOGY METHOD 10/21/2024 7:52 AM [facility] MCV 82.4 79.0 - 98.0 FL LAB HEMETOLOGY METHOD 10/21/2024 7:52 AM [facility] MCH 25.8(L) 27.0 - 32.0 pcg LAB HEMETOLOGY METHOD 10/21/2024 7:52 AM [facility] MCHC 31.3(L) 32.0 - 37.0 g/dL LAB HEMETOLOGY METHOD 10/21/2024 7:52 AM [facility] RDW 16.3(H) 11.0 - 15.0 % LAB HEMETOLOGY METHOD 10/21/2024 7:52 AM [facility] Platelets 212 130 - 400 K/[facility] LAB HEMETOLOGY METHOD 10/21/2024 7:52 AM [facility] MPV 11.9(H) 7.0 - 11.0 FL LAB HEMETOLOGY METHOD 10/21/2024 7:52 AM [facility] NRBC 0.0 <1.0 % LAB HEMETOLOGY METHOD 10/21/2024 7:52 AM [facility] NRBC Absolute 0.00 <0.10 K/[facility] LAB HEMETOLOGY METHOD 10/21/2024 7:52 AM [facility] Neutrophils Relative 41.5 % LAB HEMETOLOGY METHOD 10/21/2024 7:52 AM [facility] Lymphocytes Relative 35.4 % LAB HEMETOLOGY METHOD 10/21/2024 7:52 AM [facility] Monocytes Relative 16.5 % LAB HEMETOLOGY METHOD 10/21/2024 7:52 AM [facility] Eosinophils Relative 5.4 % LAB HEMETOLOGY METHOD 10/21/2024 7:52 AM [facility] Basophils Relative 1.2 % LAB HEMETOLOGY METHOD 10/21/2024 7:52 AM [facility] Immature Granulocytes Relative 0.0 % LAB HEMETOLOGY METHOD 10/21/2024 7:52 AM [facility] Neutrophils Absolute 1.08(L) 1.50 - 7.00 K/mcL LAB HEMETOLOGY METHOD 10/21/2024 7:52 AM [facility] Lymphocytes Absolute 0.92(L) 1.00 - 5.00 K/mcL LAB HEMETOLOGY METHOD 10/21/2024 7:52 AM [facility] Monocytes Absolute 0.43 0.20 - 1.00 K/mcL LAB HEMETOLOGY METHOD 10/21/2024 7:52 AM [facility] Eosinophils Absolute 0.14 0.00 - 0.50 K/mcL LAB HEMETOLOGY METHOD 10/21/2024 7:52 AM [facility] Basophils Absolute 0.03 0.00 - 0.20 K/mcL LAB HEMETOLOGY METHOD 10/21/2024 7:52 AM [facility] Immature Granulocytes Absolute 0.00 0.00 - 0.03 K/mcL LAB HEMETOLOGY METHOD 10/21/2024 7:52 AM [facility] Blood Venous blood specimen / Unknown 10/21/2024 6:20 AM EDT 10/21/2024 7:33 AM EDT us Jeramie Schwartz MD LAB BLOOD ORDERABLES Final Resul t Performing Organization Address [facility] Co de Phone Number [facility] [address] [place] [address], * Pregabalin (10/21/2024 6:20 AM EDT) Pregabalin [...] - 10/23/2024 4:05 PM EDT Performed at: [facility] [employer] [address] [place] [id number] Gun Perforator: Michelle Jimenez [facility], Phone: [phone] us Jeramie Schwartz MD LAB BLOOD ORDERABLES Final Resul t Performing Organization Address [facility] Co de Phone Number [facility] * Levetiracetam level (10/21/2024 6:20 AM EDT) Levetiracetam 48.5 3.0 - 60.0 ug/mL 10/23/2024 5:26 AM EDT [facility] Comment: Steady state trough serum or plasma levels following doses of 1000 to 3000 mg/Day: 3 to 37 ug/mL. The same dosage regimen will typically result in peak levels of 10 to 60 ug/mL, at approximately 1.5 hours post dose. If applicable, any drug confirmation testing reported here was developed and the performance characteristics determined by [facility]. This confirmation testing has not been cleared or approved by the FDA. The laboratory is regulated under CLIA as qualified to perform high-complexity testing. This test is used for patient testing purposes. It should not be regarded as investigational or for research. Test performed at [facility], [address] , [place] [address] Marcy Abarca MD, PhD - Water Plant Pump Operator Blood Venous blood specimen / Unknown 10/21/2024 6:20 AM EDT 10/21/2024 7:33 AM EDT us Jeramie Schwartz MD LAB BLOOD ORDERABLES Final Resul t [facility] [address] [place] [address] * (ABNORMAL) Comprehensive metabolic panel (10/21/2024 6:20 AM EDT) Sodium 141 133 - 145 mmol/L LAB CHEMISTRY METHOD 10/21/2024 8:24 AM [facility] Potassium 4.0 3.5 - 5.5 mmol/L LAB CHEMISTRY METHOD 10/21/2024 8:24 AM [facility] Chloride 107 96 - 110 mmol/L LAB CHEMISTRY METHOD 10/21/2024 8:24 AM [facility] CO2 30 21 - 32 mmol/L LAB CHEMISTRY METHOD 10/21/2024 8:24 AM [facility] Anion Gap 4 3 - 11 LAB CHEMISTRY METHOD 10/21/2024 8:24 AM [facility] Glucose 87 70 - 100 mg/dL LAB CHEMISTRY METHOD 10/21/2024 8:24 AM [facility] BUN 13 5 - 25 mg/dL LAB CHEMISTRY METHOD 10/21/2024 8:24 AM [facility] Creatinine 0.97 0.70 - 1.30 mg/dL LAB CHEMISTRY METHOD 10/21/2024 8:24 AM [facility] eGFR 85 >=60 mL/min/1. 73m2 LAB CHEMISTRY METHOD 10/21/2024 8:24 AM [facility] Comment:Calculation based on the Chronic Kidney Disease Epidemiology Collaboration (CKD-EPI) equation refit without adjustment for race. BUN/Creatinine Ratio 13.4 LAB CHEMISTRY METHOD 10/21/2024 8:24 AM T [facility] Calcium 8.9 8.5 - 10.5 mg/dL LAB CHEMISTRY METHOD 10/21/2024 8:24 AM [facility] AST (SGOT) 13 10 - 42 unit/L LAB CHEMISTRY METHOD 10/21/2024 8:24 AM [facility] ALT (SGPT) 17 10 - 60 unit/L LAB CHEMISTRY METHOD 10/21/2024 8:24 AM [facility] Alkaline Phosphatase 94 42 - 121 unit/L LAB CHEMISTRY METHOD 10/21/2024 8:24 AM [facility] Total Protein 6.5 6.0 - 8.0 g/dL LAB CHEMISTRY METHOD 10/21/2024 8:24 AM [facility] Albumin 2.8(L) 3.2 - 5.0 g/dL LAB CHEMISTRY METHOD 10/21/2024 8:24 AM [facility] Total Bilirubin 0.3 0.0 - 1.4 mg/dL LAB CHEMISTRY METHOD 10/21/2024 8:24 AM [facility] Blood Venous blood specimen / Unknown 10/21/2024 6:20 AM EDT 10/21/2024 7:33 AM EDT us Jeramie Schwartz MD LAB BLOOD ORDERABLES Final Resul t [facility] [address] [place] [address], documented in this encounter Visit Diagnoses Diagnosis Encounter for therapeutic drug level monitoring documented in this encounter Care Teams Apprentice Plant Attendant Relationship Specialty Start Date End Date Jeramie Schwartz MD [address] [place] Chaudhry PCP - General Internal Medicine 06/02/24 documented as of this encounter
--- OUTSIDE RECORDS SUMMARY | 2025-01-14 11:50 | XMS_ITS | Encounter Summary ---
Author Organization [facility] Address [address] [place] [address] Care Team Providers Care Health And Fitness Professor Name Role Phone Jeramie Schwartz MD Primary Care Provider Encounter Details Date Type Department Care Team (Late st Contact Info) Description 09/04/2024 Lab Requisition [facility] [address] [place] [address] Jeramie Schwartz MD [address] [place] [address] Dr [address] [place], [place] Social History Tobacco Use Types [...] Positive( A) Negative 09/04/2024 5:13 PM EDT [facility] Stool Rectum structure / Unknown 09/04/2024 10:45 AM EDT 09/04/2024 3:26 PM EDT us Jeramie Schwartz MD LAB BODY FLUIDS AND STOOLS ORDER VELMA Final Result [facility] [address] [place] [address], [place] [phone] documented in this encounter Visit Diagnoses Diagnosis Melena Blood in stool documented in this encounter Care Teams Health And Fitness Professor Relationship Specialty Start Date End Date Jeramie Schwartz MD [address] [place] [address] Dr [address] M[place] Chaudhry PCP - General Internal Medicine 06/02/24 documented as of this encounter
--- OUTSIDE RECORDS SUMMARY | 2025-01-14 11:50 | XMS_ITS | Encounter Summary ---
Author Organization [employer] [facility] Address [address] [place] [address] Care Team Providers Care Handle Machine Operator Name Role Phone Jeramie Schwartz MD Primary Care Provider Encounter Details Date Type Department Care Team (Late st Contact Info) Description 11/26/2024 Lab Requisition [facility] - Main Lab 299 [facility] [place] [address] Jeramie Schwartz MD [address] [place] [address] [address] [place] Feeling of incomplete bladder emptying Social History Tobacco Use Types Packs/Day Years [...] Comments MANUAL DIFFERENTIAL - SYSMEX WAM Routine 11/26/2024 [...] AM EDT Feeling of incomplete bladder emptying documented in this encounter Results * (ABNORMAL) Manual differential (11/26/2024 6:20 AM EDT) Neutrophils % 58.0 % LAB HEMETOLOGY METHOD [facility]24 [facility] Lymphocytes % 24.0 % LAB HEMETOLOGY METHOD 11/26/2024 8:26 AM [facility] Reactive Lymphocyte 4.00 % LAB HEMETOLOGY METHOD 11/26/2024 8:26 AM [facility] Monocytes % 10.0 % LAB HEMETOLOGY METHOD 11/26/2024 8:26 AM [facility] Eosinophils % 2.0 % LAB HEMETOLOGY METHOD 11/26/2024 8:26 AM [facility] Basophils % 2.0 % LAB HEMETOLOGY METHOD 11/26/2024 8:26 AM [facility] Neutrophils Absolute Manual 1.33(L) 1.50 - 7.00 K/mcL LAB HEMETOLOGY METHOD 11/26/2024 8:26 AM [facility] Lymphocytes Absolute 0.55(L) 1.00 - 5.00 K/mcL LAB HEMETOLOGY METHOD 11/26/2024 8:26 AM [facility] Reactive Lymph Abs Manual 0.09(H) 0.00 - 0.00 lym LAB HEMETOLOGY METHOD 11/26/2024 8:26 AM [facility] Monocytes Absolute Manual 0.23 0.20 - 1.00 K/mcL LAB HEMETOLOGY METHOD 11/26/2024 8:26 AM [facility] Eosinophils Absolute Manual 0.05 0.00 - 0.50 K/mcL LAB HEMETOLOGY METHOD 11/26/2024 8:26 AM EDT [facility] Basophils Absolute Manual 0.05 0.00 - 0.20 K/mcL LAB HEMETOLOGY METHOD 11/26/2024 8:26 AM EDT [facility] Blood Venous blood specimen / Unknown 11/26/2024 6:20 AM EDT 11/26/2024 7:28 AM EDT us Jeramie Schwartz MD LAB BLOOD ORDERABLES Final Resul t Performing Organization Address [facility] Co de Phone Number [facility] [address] [place] [address], [place] [phone] * Pathology review, blood smear (11/26/2024 6:20 [...] correlation is recommended. 11/26/2024 9:40 AM EDT [facility] Blood Venous blood specimen / Unknown 11/26/2024 6:20 AM EDT 11/26/2024 7:28 AM EDT us Jeramie Schwartz MD LAB BLOOD ORDERABLES Final Resul t Performing Organization Address City/[facility]/ZIP Co de Phone Number [facility] [address] [place] [address], * (ABNORMAL) CBC auto differential (11/26/2024 6:20 AM EDT) [facility] [address] WBC 2.3(L) 4.8 - 10.8 K/mcL LAB HEMETOLOGY METHOD 11/26/2024 8:26 AM [facility] RBC 5.00 4.50 - 5.50 M/mcL LAB HEMETOLOGY METHOD 11/26/2024 8:26 AM [facility] Hemoglobin 12.7(L) 13.5 - 17.5 g/dL LAB HEMETOLOGY METHOD 11/26/2024 8:26 AM [facility] Hematocrit 40.4(L) 42.0 - 54.0 % LAB HEMETOLOGY METHOD 11/26/2024 8:26 AM [facility] MCV 81.6 79.0 - 98.0 FL LAB HEMETOLOGY METHOD 11/26/2024 8:26 AM [facility] MCH 25.7(L) 27.0 - 32.0 pcg LAB HEMETOLOGY METHOD 11/26/2024 8:26 AM [facility] MCHC 31.4(L) 32.0 - 37.0 g/dL LAB HEMETOLOGY METHOD 11/26/2024 8:26 AM [facility] RDW 16.3(H) 11.0 - 15.0 % LAB HEMETOLOGY METHOD 11/26/2024 8:26 AM [facility] Platelets 243 130 - 400 K/mcL LAB HEMETOLOGY METHOD 11/26/2024 8:26 AM [facility] MPV 10.7 7.0 - 11.0 FL LAB HEMETOLOGY METHOD 11/26/2024 8:26 AM [facility] NRBC 0.0 <1.0 % LAB HEMETOLOGY METHOD 11/26/2024 8:26 AM EDT [facility] NRBC Absolute 0.00 <0.10 K/mcL LAB HEMETOLOGY METHOD 11/26/2024 8:26 AM EDT [facility] Blood Venous blood specimen / Unknown 11/26/2024 6:20 AM EDT 11/26/2024 7:28 AM EDT us Jeramie Schwartz MD LAB BLOOD ORDERABLES Final Resul t Performing Organization Address [facility]/ZIP Co de Phone Number [facility] [address] [place] [address], * Prostate specific antigen diagnostic (11/26/2024 6:20 AM EDT) PSA 0.64 0.00 - 4.00 ng/mL LAB CHEMISTRY METHOD 11/26/2024 10:50 AM EDT [facility] Blood Venous blood specimen / Unknown 11/26/2024 6:20 AM EDT 11/26/2024 7:28 AM EDT Narrative [facility] - 11/26/2024 10:50 AM EDT The Siemens Advia Centaur Chemiluminescent Immunoassay is used. Results obtained with different assay methods or kits cannot be used interchangeably. Results cannot be interpreted as absolute evidence of the presence or absence of malignant disease. us Jeramie Schwartz MD LAB BLOOD ORDERABLES Final Resul t [facility] [address] [place] [address], * BUN (11/26/2024 6:20 AM EDT) BUN 16 5 - 25 mg/dL LAB CHEMISTRY METHOD 11/26/2024 8:26 AM EDT [facility] Blood Venous blood specimen / Unknown 11/26/2024 6:20 AM EDT 11/26/2024 7:28 AM EDT us Jeramie Schwartz MD LAB BLOOD ORDERABLES Final Resul t Performing Organization Address [facility] de Phone Number [facility] [address] [place] [address], [place] [phone] * Creatinine (11/26/2024 6:20 AM EDT) Creatinine 1.02 0.70 - 1.30 mg/dL LAB CHEMISTRY METHOD 11/26/2024 8:26 AM EDT [facility] eGFR 80 >=60 mL/min/1. 73m2 LAB CHEMISTRY METHOD 11/26/2024 8:26 AM EDT [facility] Comment:Calculation based on the Chronic Kidney Disease Epidemiology Collaboration (CKD-EPI) equation refit without adjustment for race. Blood Venous blood specimen / Unknown 11/26/2024 6:20 AM EDT 11/26/2024 7:28 AM EDT us Jeramie Schwartz MD LAB BLOOD ORDERABLES Final Resul t Performing Organization Address [facility] de Phone Number [facility] [address] [place] [address], [place] [phone] documented in this encounter Visit Diagnoses Diagnosis Feeling of incomplete bladder emptying documented in this encounter Care Teams Handle Machine Operator Relationship Specialty Start Date End Date Jeramie Schwartz MD [address] [place] [address] Dr Janis Chaudhry [place] PCP - General Internal Medicine 06/02/24 documented as of this encounter
--- OUTSIDE RECORDS SUMMARY | 2025-01-14 11:50 | XMS_ITS | Encounter Summary ---
Author Organization [facility] Address [address] [place] [address] Care Team Providers Care Manufacturing Design Engineer Name Role Phone Jeramie Schwartz MD Primary Care Provider [phone] Encounter Details Date Type Department Care Team (Late st Contact Info) Description 09/17/2024 Lab Requisition [facility] - Main Lab [address] [place] [address] Jeramie Schwartz MD [address] [place] [address] Dr [address] [place] Other recreation aide (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 Social History Tobacco Use [...] Diagnosis Comments CBC WITH AUTO DIFFERENTIAL Routine 09/17/2024 5:30 AM EDT Other recreation aide (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 CBC AND DIFFERENTIAL Routine 09/17/2024 5:30 AM EDT Other mcc (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 documented in this encounter Results * (ABNORMAL) CBC auto differential (09/17/2024 5:30 AM EDT) WBC 2.9(L) 4.8 - 10.8 K/[facility] LAB HEMETOLOGY METHOD 09/17/2024 7:42 AM EDT [facility] RBC 4.50 4.50 - 5.50 M/[facility] LAB HEMETOLOGY METHOD 09/17/2024 7:42 AM EDT [facility] Hemoglobin 11.6(L) 13.5 - 17.5 g/dL LAB HEMETOLOGY METHOD 09/17/2024 7:42 AM [facility] Hematocrit 37.5(L) 42.0 - 54.0 % LAB HEMETOLOGY METHOD 09/17/2024 7:42 AM [facility] MCV 84.1 79.0 - 98.0 FL LAB HEMETOLOGY METHOD 09/17/2024 7:42 AM [facility] MCH 26.0(L) 27.0 - 32.0 pcg LAB HEMETOLOGY METHOD 09/17/2024 7:42 AM [facility] MCHC 30.9(L) 32.0 - 37.0 g/dL LAB HEMETOLOGY METHOD 09/17/2024 7:42 AM [facility] RDW 16.8(H) 11.0 - 15.0 % LAB HEMETOLOGY METHOD 09/17/2024 7:42 AM [facility] Platelets 233 130 - 400 K/mcL LAB HEMETOLOGY METHOD 09/17/2024 7:42 AM [facility] MPV 11.0 7.0 - 11.0 FL LAB HEMETOLOGY METHOD 09/17/2024 7:42 AM [facility] NRBC 0.0 <1.0 % LAB HEMETOLOGY METHOD 09/17/2024 7:42 AM [facility] NRBC Absolute 0.00 <0.10 K/mcL LAB HEMETOLOGY METHOD 09/17/2024 7:42 AM [facility] Neutrophils Relative 48.3 % LAB HEMETOLOGY METHOD 09/17/2024 7:42 AM [facility] Lymphocytes Relative 27.9 % LAB HEMETOLOGY METHOD 09/17/2024 7:42 AM [facility] Monocytes Relative 15.6 % LAB HEMETOLOGY METHOD 09/17/2024 7:42 AM EDT [facility] Eosinophils Relative 7.5 % LAB HEMETOLOGY METHOD 09/17/2024 7:42 AM EDT [facility] Basophils Relative 0.7 % LAB HEMETOLOGY METHOD 09/17/2024 7:42 AM EDT [facility] Immature Granulocytes Relative 0.0 % LAB HEMETOLOGY METHOD 09/17/2024 7:42 AM EDT [facility] Neutrophils Absolute 1.42(L) 1.50 - 7.00 K/mcL LAB HEMETOLOGY METHOD 09/17/2024 7:42 AM EDT [facility] Lymphocytes Absolute 0.82(L) 1.00 - 5.00 K/mcL LAB HEMETOLOGY METHOD 09/17[facility]24 [facility] Monocytes Absolute 0.46 0.20 - 1.00 K/mcL LAB HEMETOLOGY METHOD 09/17/2024 7:42 AM EDT [facility] Eosinophils Absolute 0.22 0.00 - 0.50 K/mcL LAB HEMETOLOGY METHOD 09/17/2024 7:42 AM [facility] Basophils Absolute 0.02 0.00 - 0.20 K/mcL LAB HEMETOLOGY METHOD 09/17/2024 7:42 AM EDT [facility] Immature Granulocytes Absolute 0.00 0.00 - 0.03 K/mcL LAB HEMETOLOGY METHOD 09/17/2024 7:42 AM T [facility] Blood Venous blood specimen / Unknown 09/17/2024 5:30 AM EDT 09/17/2024 6:43 AM EDT us Jeramie Schwartz MD LAB BLOOD ORDERABLES Final Resul t [facility] [address] [place] [address], [place] [phone] documented in this encounter Visit Diagnoses Diagnosis Other recreation aide (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 documented in this encounter Care Teams Manufacturing Design Engineer Relationship Specialty Start Date End Date Jeramie Schwartz MD [address] [place] [address] Dr [address] [place] PCP - General Internal Medicine 06/02/24 documented as of this encounter
--- OUTSIDE RECORDS SUMMARY | 2025-01-14 11:50 | XMS_ITS | Encounter Summary ---
Author Organization [facility] Address [address] [place] [address] Care Team Providers Care Customs Patrol Officer Name Role Phone Jeramie Schwartz MD Primary Care Provider Encounter Details Date Type Department Care Team (Late st Contact Info) Description 09/07/[address] [facility] - Main Lab 299 [facility] [place] [address] Jeramie Schwartz MD [address] [place] [address] [address] [place] Other terminal carman (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 Social History Tobacco Use [...] PREGABALIN Routine 09/07/2024 5:25 AM EDT Other terminal carman (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 documented in this encounter [...] - 09/09/2024 11:05 PM EDT Performed at: 01 - [employer] [address] [place] [id number] Automation Manager: Michelle Jimenez [facility], Phone: [phone] us Jeramie Schwartz MD LAB BLOOD ORDERABLES Final Resul t [facility] documented in this encounter Visit Diagnoses Diagnosis Other prison (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 documented in this encounter Care Teams Customs Patrol Officer Relationship Specialty Start Date End Date Jeramie Schwartz MD [address] [place] [address] [address] [place]aud[place] PCP - General Internal Medicine 06/02/24 documented as of this encounter
--- OUTSIDE RECORDS SUMMARY | 2025-01-14 11:50 | XMS_ITS | Encounter Summary ---
Author Organization [facility] Address [address] [place] [address] Care Team Providers Care Regional Operations Director Name Role Phone Jeramie Schwartz MD Primary Care Provider [phone] Encounter Details Date Type Department Care Team (Late st Contact Info) Description 03/11/2024 Lab Requisition [facility] - Main Lab [address] [place] [address] Jeramie Schwartz MD [address] [place] [address] Dr [address] [place] Diffuse traumatic brain injury with loss of [...] AM EST) WBC 3.2(L) 4.8 - 10.8 K/[facility] LAB HEMETOLOGY METHOD 03/11/2024 6:59 AM EST [facility] RBC 4.10(L) 4.50 - 5.50 M/mcL LAB HEMETOLOGY METHOD 03/11/2024 6:59 AM [facility] Hemoglobin 10.5(L) 13.5 - 17.5 g/dL LAB HEMETOLOGY METHOD 03/11/2024 6:59 AM [facility] Hematocrit 34.8(L) 42.0 - 54.0 % LAB HEMETOLOGY METHOD 03/11/2024 6:59 AM [facility] MCV 85.7 79.0 - 98.0 FL LAB HEMETOLOGY METHOD 03/11/2024 6:59 AM [facility] MCH 25.9(L) 27.0 - 32.0 pcg LAB HEMETOLOGY METHOD 03/11/2024 6:59 AM [facility] MCHC 30.2(L) 32.0 - 37.0 g/dL LAB HEMETOLOGY METHOD 03/11/2024 6:59 AM [facility] RDW 16.6(H) 11.0 - 15.0 % LAB HEMETOLOGY METHOD 03/11/2024 6:59 AM [facility] Platelets 287 130 - 400 K/mcL LAB HEMETOLOGY METHOD 03/11/2024 6:59 AM [facility] MPV 11.1(H) 7.0 - 11.0 FL LAB HEMETOLOGY METHOD 03/11/2024 6:59 AM [facility] NRBC 0.0 <1.0 % LAB HEMETOLOGY METHOD 03/11/2024 6:59 AM [facility] NRBC Absolute 0.00 <0.10 K/mcL LAB HEMETOLOGY METHOD 03/11/2024 6:59 AM [facility] Neutrophils Relative 38.2 % LAB HEMETOLOGY METHOD 03/11/2024 6:59 AM [facility] Lymphocytes Relative 32.8 % LAB HEMETOLOGY METHOD 03/11/2024 6:59 AM [facility] Monocytes Relative 17.8 % LAB HEMETOLOGY METHOD 03/11/2024 6:59 AM [facility] Eosinophils Relative 10.3 % LAB HEMETOLOGY METHOD 03/11/2024 6:59 AM [facility] Basophils Relative 0.6 % LAB HEMETOLOGY METHOD 03/11/2024 6:59 AM [facility] Immature Granulocytes Relative 0.3 % LAB HEMETOLOGY METHOD 03/11/2024 6:59 AM [facility] Neutrophils Absolute 1.22(L) 1.50 - 7.00 K/mcL LAB HEMETOLOGY METHOD 03/11/2024 6:59 AM [facility] Lymphocytes Absolute 1.05 1.00 - 5.00 K/mcL LAB HEMETOLOGY METHOD 03/11/2024 6:59 AM [facility] Monocytes Absolute 0.57 0.20 - 1.00 K/mcL LAB HEMETOLOGY METHOD 03/11/2024 6:59 AM [facility] Eosinophils Absolute 0.33 0.00 - 0.50 K/mcL LAB HEMETOLOGY METHOD 03/11/2024 6:59 AM [facility] Basophils Absolute 0.02 0.00 - 0.20 K/mcL LAB HEMETOLOGY METHOD 03/11/2024 6:59 AM [facility] Immature Granulocytes Absolute 0.01 0.00 - 0.03 K/mcL LAB HEMETOLOGY METHOD 03/11/2024 6:59 AM [facility] Blood Venous blood specimen / Unknown 03/11/2024 4:55 AM EST 03/11/2024 6:08 AM EST us Jeramie Schwartz MD LAB BLOOD ORDERABLES Final Resul t [facility] [address] [place] [address], documented in this encounter Visit Diagnoses Diagnosis 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 unspecified duration, sequela (CMS/HCC V24) documented in this encounter Care Teams Regional Operations Director Relationship Specialty Start Date End Date Jeramie Schwartz MD [address] [place] [address] Dr [address] [place] PCP - General Internal Medicine 06/02/24 documented as of this encounter
--- OUTSIDE RECORDS SUMMARY | 2025-01-14 11:50 | XMS_ITS | Encounter Summary ---
Author Organization [facility] Address [address] [place] [address] Care Team Providers Care Icu Manager Name Role Phone Jeramie Schwartz MD Primary Care Provider [phone] Encounter Details Date Type Department Care Team (Late st Contact Info) Description 08/12/2024 Lab Requisition [facility] - Main Lab 299 [facility] [place] [address] Jeramie Schwartz MD [address] [place] [address] Dr [address] [place] 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 unspecified duration, sequela (CMS/HCC V24); Essential (primary) hypertension; Other halfway (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 Social History Tobacco Use [...] duration, sequela (CMS/HCC) Essential (primary) hypertension Other halfway (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 CBC AND DIFFERENTIAL Routine 08/12/2024 5:42 AM EDT 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 unspecified duration, sequela (CMS/HCC) Essential (primary) hypertension Other halfway (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 documented in this encounter Results * (ABNORMAL) CBC auto differential (08/12/2024 5:42 AM EDT) WBC 3.7(L) 4.8 - 10.8 K/mcL LAB HEMETOLOGY METHOD 08/12/2024 6:48 AM [facility] RBC 3.80(L) 4.50 - 5.50 M/mcL LAB HEMETOLOGY METHOD 08/12/2024 6:48 AM [facility] Hemoglobin 9.9(L) 13.5 - 17.5 g/dL LAB HEMETOLOGY METHOD 08/12/2024 6:48 AM [facility] Hematocrit 31.3(L) 42.0 - 54.0 % LAB HEMETOLOGY METHOD 08/12/2024 6:48 AM [facility] MCV 83.0 79.0 - 98.0 FL LAB HEMETOLOGY METHOD 08/12/2024 6:48 AM [facility] MCH 26.3(L) 27.0 - 32.0 pcg LAB HEMETOLOGY METHOD 08/12/2024 6:48 AM [facility] MCHC 31.6(L) 32.0 - 37.0 g/dL LAB HEMETOLOGY METHOD 08/12/2024 6:48 AM [facility] RDW 16.4(H) 11.0 - 15.0 % LAB HEMETOLOGY METHOD 08/12/2024 6:48 AM [facility] Platelets 207 130 - 400 K/mcL LAB HEMETOLOGY METHOD 08/12/2024 6:48 AM [facility] MPV 10.3 7.0 - 11.0 FL LAB HEMETOLOGY METHOD 08/12/2024 6:48 AM [facility] NRBC 0.0 <1.0 % LAB HEMETOLOGY METHOD 08/12/2024 6:48 AM [facility] NRBC Absolute 0.00 <0.10 K/mcL LAB HEMETOLOGY METHOD 08/12/2024 6:48 AM [facility] Neutrophils Relative 41.0 % LAB HEMETOLOGY METHOD 08/12/2024 6:48 AM [facility] Lymphocytes Relative 34.3 % LAB HEMETOLOGY METHOD 08/12/2024 6:48 AM [facility] Monocytes Relative 14.5 % LAB HEMETOLOGY METHOD 08/12/2024 6:48 AM [facility] Eosinophils Relative 8.8 % LAB HEMETOLOGY METHOD 08/12/2024 6:48 AM [facility] Basophils Relative 1.1 % LAB HEMETOLOGY METHOD 08/12/2024 6:48 AM [facility] Immature Granulocytes Relative 0.3 % LAB HEMETOLOGY METHOD 08/12/2024 6:48 AM [facility] Neutrophils Absolute 1.53 1.50 - 7.00 K/mcL LAB HEMETOLOGY METHOD 08/12/2024 6:48 AM [facility] Lymphocytes Absolute 1.28 1.00 - 5.00 K/mcL LAB HEMETOLOGY METHOD 08/12/2024 6:48 AM [facility] Monocytes Absolute 0.54 0.20 - 1.00 K/mcL LAB HEMETOLOGY METHOD 08/12/2024 6:48 AM [facility] Eosinophils Absolute 0.33 0.00 - 0.50 K/mcL LAB HEMETOLOGY METHOD 08/12/2024 6:48 AM [facility] Basophils Absolute 0.04 0.00 - 0.20 K/mcL LAB HEMETOLOGY METHOD 08/12/2024 6:48 AM [facility] Immature Granulocytes Absolute 0.01 0.00 - 0.03 K/mcL LAB HEMETOLOGY METHOD 08/12/2024 6:48 AM [facility] Blood Venous blood specimen / Unknown 08/12/2024 5:42 AM EDT 08/12/2024 6:29 AM EDT Jeramie Schwartz MD LAB BLOOD ORDERABLES Final Resul t [facility] [address] [place] [address], documented in this encounter Visit Diagnoses Diagnosis 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 unspecified duration, sequela (CMS/HCC V24) Essential (primary) hypertension Unspecified essential hypertension Other halfway (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 documented in this encounter Care Teams Icu Manager Relationship Specialty Start Date End Date Jeramie Schwartz MD [address] [place], [place] PCP - General Internal Medicine 06/02/24 documented as of this encounter
--- OUTSIDE RECORDS SUMMARY | 2025-01-14 11:50 | XMS_ITS | Encounter Summary ---
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 The same dosage regimen will typically result in peak levels of 10 to 60 ug/mL, at approximately 1.5 hours post dose. If applicable, any drug confirmation testing reported here was developed and the performance characteristics determined by [facility]. This confirmation testing has not been cleared or approved by the FDA. The laboratory is regulated under CLIA as qualified to perform high-complexity testing. This test is used for patient testing purposes. It should not be regarded as investigational or for research. Test performed at [facility], [address], [place], [place] [id number] Marcy Abarca MD, PhD - Mattress Filler Blood Venous blood specimen / Unknown 09/11/2024 6:20 AM EDT 09/11/2024 6:55 AM EDT us Jeramie Schwartz MD LAB BLOOD ORDERABLES Final Resul t [facility] [address] [place] [address] documented in this encounter Visit Diagnoses Diagnosis Other long-term (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 documented in this encounter Care Teams Instrumentation Supervisor Relationship Specialty Start Date End Date Jeramie Schwartz MD [address] [place] [address] [address] [place] PCP - General Internal Medicine 06/02/24 documented as of this encounter
--- OUTSIDE RECORDS SUMMARY | 2025-01-14 11:50 | XMS_ITS | Encounter Summary ---
Author Organization [facility] Address [address] [place] [address] Care Team Providers Care Sectionizer Name Role Phone Jeramie Schwartz MD Primary Care Provider [phone] Encounter Details Date Type Department Care Team (Late st Contact Info) Description 08/19/[address] 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 CBC AND DIFFERENTIAL Routine 08/19/2024 6:12 AM EDT 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 unspecified duration, sequela (CMS/HCC V24) 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 documented in this encounter Results * (ABNORMAL) CBC auto differential (08/19/2024 6:12 AM EDT) WBC 3.2(L) 4.8 - 10.8 K/mcL LAB HEMETOLOGY METHOD 08/19/2024 8:30 AM [facility] RBC 4.30(L) 4.50 - 5.50 M/mcL LAB HEMETOLOGY METHOD 08/19/2024 8:30 AM [facility] Hemoglobin 11.2(L) 13.5 - 17.5 g/dL LAB HEMETOLOGY METHOD 08/19/2024 8:30 AM [facility] Hematocrit 35.9(L) 42.0 - 54.0 % LAB HEMETOLOGY METHOD 08/19/2024 8:30 AM [facility] MCV 84.1 79.0 - 98.0 FL LAB HEMETOLOGY METHOD 08/19/2024 8:30 AM [facility] MCH 26.2(L) 27.0 - 32.0 pcg LAB HEMETOLOGY METHOD 08/19/2024 8:30 AM [facility] MCHC 31.2(L) 32.0 - 37.0 g/dL LAB HEMETOLOGY METHOD 08/19/2024 8:30 AM [facility] RDW 17.1(H) 11.0 - 15.0 % LAB HEMETOLOGY METHOD 08/19/2024 8:30 AM [facility] Platelets 284 130 - 400 K/mcL LAB HEMETOLOGY METHOD 08/19/2024 8:30 AM [facility] MPV 12.1(H) 7.0 - 11.0 FL LAB HEMETOLOGY METHOD 08/19/2024 8:30 AM [facility] NRBC 0.0 <1.0 % LAB HEMETOLOGY METHOD 08/19/2024 8:30 AM [facility] NRBC Absolute 0.00 <0.10 K/mcL LAB HEMETOLOGY METHOD 08/19/2024 8:30 AM [facility] Neutrophils Relative 52.3 % LAB HEMETOLOGY METHOD 08/19/2024 8:30 AM [facility] Lymphocytes Relative 27.2 % LAB HEMETOLOGY METHOD 08/19/2024 8:30 AM [facility] Monocytes Relative 13.3 % LAB HEMETOLOGY METHOD 08/19/2024 8:30 AM [facility] Eosinophils Relative 6.3 % LAB HEMETOLOGY METHOD 08/19/2024 8:30 AM [facility] Basophils Relative 0.6 % LAB HEMETOLOGY METHOD 08/19/2024 8:30 AM [facility] Immature Granulocytes Relative 0.3 % LAB HEMETOLOGY METHOD 08/19/2024 8:30 AM [facility] Neutrophils Absolute 1.65 1.50 - 7.00 K/mcL LAB HEMETOLOGY METHOD 08/19/2024 8:30 AM [facility] Lymphocytes Absolute 0.86(L) 1.00 - 5.00 K/mcL LAB HEMETOLOGY METHOD 08/19/2024 8:30 AM [facility] Monocytes Absolute 0.42 0.20 - 1.00 K/mcL LAB HEMETOLOGY METHOD 08/19/2024 8:30 AM [facility] Eosinophils Absolute 0.20 0.00 - 0.50 K/mcL LAB HEMETOLOGY METHOD 08/19/2024 8:30 AM [facility] Basophils Absolute 0.02 0.00 - 0.20 K/mcL LAB HEMETOLOGY METHOD 08/19/2024 8:30 AM [facility] Immature Granulocytes Absolute 0.01 0.00 - 0.03 K/mcL LAB HEMETOLOGY METHOD 08/19/2024 8:30 AM [facility] Blood Venous blood specimen / Unknown 08/19/2024 6:12 AM EDT 08/19/2024 7:24 AM EDT us Jeramie Schwartz MD LAB BLOOD ORDERABLES Final Resul t [facility] [address] [place] [address], documented in this encounter Visit Diagnoses Diagnosis 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 unspecified duration, sequela (CMS/HCC V24) Other alf (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 documented in this encounter Care Teams Sectionizer Relationship Specialty Start Date End Date Jeramie Schwartz MD [address] [place] [address] Dr [address] [place], [place] PCP - General Internal Medicine 06/02/24 documented as of this encounter
--- OUTSIDE RECORDS SUMMARY | 2025-01-14 11:50 | XMS_ITS | Encounter Summary ---
Author Organization [employer] Address [address] [place] [address] Care Team Providers Care Table Games Shift Manager Name Role Phone Jeramie Schwartz MD Primary Care Provider [phone] Encounter Details Date Type Department Care Team (Latest Contact Info) Description 01/14/2025 Lab Requisition [facility] - Main Lab [address] [facility] [place] [address] Jeramie Schwartz MD [address] [place] [address] [address] [place] Type 2 diabetes mellitus with mild nonproliferative [...] edema, left eye (CMS/HCC V24, CMS/HCC V28) documented in this encounter Results * (ABNORMAL) CBC auto differential (01/14/2025 6:33 AM EDT) [facility] WBC 5.6 4.8 - 10.8 K/mcL LAB HEMETOLOGY METHOD 01/14/2025 8:09 AM [facility] RBC 5.40 4.50 - 5.50 M/mcL LAB HEMETOLOGY METHOD 01/14/2025 8:09 AM [facility] Hemoglobin 13.8 13.5 - 17.5 g/dL LAB HEMETOLOGY METHOD 01/14/2025 8:09 AM [facility] Hematocrit 44.6 42.0 - 54.0 % LAB HEMETOLOGY METHOD 01/14/2025 8:09 AM [facility] MCV 82.4 79.0 - 98.0 FL LAB HEMETOLOGY METHOD 01/14/2025 8:09 AM [facility] MCH 25.5(L) 27.0 - 32.0 pcg LAB HEMETOLOGY METHOD 01/14/2025 8:09 AM [facility] LAB MCHC 30.9(L) 32.0 - 37.0 g/dL LAB HEMETOLOGY METHOD 01/14/2025 8:09 AM [facility] LAB RDW 17.2(H) 11.0 - 15.0 % LAB HEMETOLOGY METHOD 01/14/2025 8:09 AM [facility] Platelets 149 130 - 400 K/mcL LAB HEMETOLOGY METHOD 01/14/2025 8:09 AM [facility] MPV LAB HEMETOLOGY METHOD 01/14/2025 8:09 AM [facility] Comment:Not Measured NRBC 0.0 <1.0 % LAB HEMETOLOGY METHOD 01/14/2025 8:09 AM [facility] NRBC Absolute 0.00 <0.10 K/mcL LAB HEMETOLOGY METHOD 01/14/2025 8:09 AM [facility] Neutrophils Relative 82.4 % LAB HEMETOLOGY METHOD 01/14/2025 8:09 AM [facility] Lymphocytes Relative 12.9 % LAB HEMETOLOGY METHOD 01/14/2025 8:09 AM [facility] Monocytes Relative 3.9 % LAB HEMETOLOGY METHOD 01/14/2025 8:09 AM [facility] Eosinophils Relative 0.2 % LAB HEMETOLOGY METHOD 01/14/2025 8:09 AM [facility] Basophils Relative 0.2 % LAB HEMETOLOGY METHOD 01/14/2025 8:09 AM [facility] Immature Granulocytes Relative 0.4 % LAB HEMETOLOGY METHOD 01/14/2025 8:09 AM [facility] Neutrophils Absolute 4.62 1.50 - 7.00 K/mcL LAB HEMETOLOGY METHOD 01/14/2025 8:09 AM [facility] Lymphocytes Absolute 0.72(L) 1.00 - 5.00 K/mcL LAB HEMETOLOGY METHOD 01/14/2025 8:09 AM [facility] Monocytes Absolute 0.22 0.20 - 1.00 K/mcL LAB HEMETOLOGY METHOD 01/14/2025 8:09 AM [facility] Eosinophils Absolute 0.01 0.00 - 0.50 K/mcL LAB HEMETOLOGY METHOD 01/14/2025 8:09 AM [facility] Basophils Absolute 0.01 0.00 - 0.20 K/mcL LAB HEMETOLOGY METHOD 01/14/2025 8:09 AM [facility] Immature Granulocytes Absolute 0.02 0.00 - 0.03 K/mcL LAB HEMETOLOGY METHOD 01/14/2025 8:09 AM [facility] Blood Venous blood specimen / Unknown 01/14/2025 6:33 AM EDT 01/14/2025 7:58 AM EDT us Jeramie Schwartz MD LAB BLOOD ORDERABLES Final Resul t Performing Organization Address [facility] Co de Phone Number [facility] [address] [place] [address], [place] [phone] * Hemoglobin A1c (01/14/2025 6:33 AM EDT) Hemoglobin A1C 5.9 <6.5 % LAB CHEMISTRY METHOD 01/14/2025 11:10 AM EDT [facility] Mean Bld Glu Estim. 123 mg/dL LAB CHEMISTRY METHOD 01/14/2025 11:10 AM EDT [facility] Blood Venous blood specimen / Unknown 01/14/2025 6:33 AM EDT 01/14/2025 7:58 AM EDT us Jeramie Schwartz MD LAB BLOOD ORDERABLES Final Resul t Performing Organization Address [facility] Co de Phone Number [facility] [address] [place] [address], [place] [phone] documented in this encounter Visit Diagnoses Diagnosis Type 2 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, left eye (CMS/[facility] V24, [facility] V28) documented in this encounter Care Teams Table Games Shift Manager Relationship Specialty Start Date End Date Jeramie Schwartz MD [address] [place] [address] Dr [address] [place] PCP - General Internal Medicine 06/02/24 documented as of this encounter
--- OUTSIDE RECORDS SUMMARY | 2025-01-14 11:50 | XMS_ITS | Encounter Summary ---
Author Organization [employer] Address [address] [place] [address] Care Team Providers Care Mutual Fund Analyst Name Role Phone Jeramie Schwartz MD Primary Care Provider [phone] Encounter Details Date Type Department Care Team (Latest Contact Info) Description 09/03/2024 Lab Requisition [facility] - Main Lab [address] [facility] [place] [address] Jeramie Schwartz MD [address] [place] [address] Dr [address] [place] 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 unspecified duration, sequela (CMS/HCC V24); Benign prostatic hyperplasia without lower urinary [...] V24, CMS/HCC V28) Vitamin D deficiency, unspecified LAVENDER - EDTA Routine 09/03/2024 6:28 AM EDT Diffuse traumatic [...] unspecified documented in this encounter Results * Lavender tube (09/03/2024 6:28 AM EDT) Pathologist [facility] Extra Tube Hold for add-ons. 10/01/2024 8:03 AM EDT [facility] Comment:Auto resulted. Blood Venous blood specimen / Unknown 09/03/2024 6:28 AM EDT 09/03/2024 8:26 AM EDT us Jeramie Schwartz MD LAB BLOOD ORDERABLES Final Resul t [facility] [address] [place] [address], * (ABNORMAL) CBC auto differential (09/03/2024 6:28 AM EDT) [facility] WBC 3.9(L) 4.8 - 10.8 K/mcL LAB HEMETOLOGY METHOD 09/03/2024 8:55 AM [facility] RBC 4.30(L) 4.50 - 5.50 M/mcL LAB HEMETOLOGY METHOD 09/03/2024 8:55 AM [facility] Hemoglobin 11.3(L) 13.5 - 17.5 g/dL LAB HEMETOLOGY METHOD 09/03/2024 8:55 AM [facility] Hematocrit 36.9(L) 42.0 - 54.0 % LAB HEMETOLOGY METHOD 09/03/2024 8:55 AM EDT [facility] MCV 86.0 79.0 - 98.0 FL LAB HEMETOLOGY METHOD 09/03/2024 8:55 AM [facility] MCH 26.3(L) 27.0 - 32.0 pcg LAB HEMETOLOGY METHOD 09/03/2024 8:55 AM [facility] MCHC 30.6(L) 32.0 - 37.0 g/dL LAB HEMETOLOGY METHOD 09/03/2024 8:55 AM [facility] RDW 17.4(H) 11.0 - 15.0 % LAB HEMETOLOGY METHOD 09/03/2024 8:55 AM [facility] Platelets 278 130 - 400 K/mcL LAB HEMETOLOGY METHOD 09/03/2024 8:55 AM [facility] MPV 12.7(H) 7.0 - 11.0 FL LAB HEMETOLOGY METHOD 09/03/2024 8:55 AM [facility] NRBC 0.0 <1.0 % LAB HEMETOLOGY METHOD 09/03/2024 8:55 AM [facility] NRBC Absolute 0.00 <0.10 K/mcL LAB HEMETOLOGY METHOD 09/03/2024 8:55 AM [facility] Neutrophils Relative 48.8 % LAB HEMETOLOGY METHOD 09/03/2024 8:55 AM [facility] Lymphocytes Relative 26.7 % LAB HEMETOLOGY METHOD 09/03/2024 8:55 AM [facility] Monocytes Relative 15.6 % LAB HEMETOLOGY METHOD 09/03/2024 8:55 AM [facility] Eosinophils Relative 7.9 % LAB HEMETOLOGY METHOD 09/03/2024 8:55 AM [facility] Basophils Relative 0.5 % LAB HEMETOLOGY METHOD 09/03/2024 8:55 AM [facility] Immature Granulocytes Relative 0.5 % LAB HEMETOLOGY METHOD 09/03/2024 8:55 AM [facility] Neutrophils Absolute 1.90 1.50 - 7.00 K/mcL LAB HEMETOLOGY METHOD 09/03/2024 8:55 AM [facility] Lymphocytes Absolute 1.04 1.00 - 5.00 K/mcL LAB HEMETOLOGY METHOD 09/03/2024 8:55 AM EDT [facility] Monocytes Absolute 0.61 0.20 - 1.00 K/[facility] LAB HEMETOLOGY METHOD 09/03/2024 8:55 AM EDT [facility] Eosinophils Absolute 0.31 0.00 - 0.50 K/[facility] LAB HEMETOLOGY METHOD 09/03/2024 8:55 AM EDT [facility] Basophils Absolute 0.02 0.00 - 0.20 K/[facility] LAB HEMETOLOGY METHOD 09/03/2024 8:55 AM EDT [facility] Immature Granulocytes Absolute 0.02 0.00 - 0.03 K/[facility] LAB HEMETOLOGY METHOD 09/03/2024 8:55 AM EDT [facility] Blood Venous blood specimen / Unknown 09/03/2024 6:28 AM EDT 09/03/2024 8:22 AM EDT us Jeramie Schwartz MD LAB BLOOD ORDERABLES Final Resul t Performing Organization Address [facility]/ZIP Ky de Phone Number [facility] [address] [place] [address], * Vitamin D 25 hydroxy (09/03/2024 6:28 AM EDT) Vit D, 25-Hydroxy 57.0 30.0 - 80.0 ng/mL LAB CHEMISTRY METHOD 09/03/2024 10:39 AM EDT [facility] Blood Venous blood specimen / Unknown 09/03/2024 6:28 AM EDT 09/03/2024 8:22 AM EDT us Jeramie Schwartz MD LAB BLOOD ORDERABLES Final Resul t Performing Organization Address City/[facility]/ZIP Co de Phone Number [facility] [address] [place] [address], [place] [phone] * Prostate specific antigen screen (09/03/2024 6:28 AM EDT) Pathologist [facility] PSA 0.49 0.00 - 4.00 ng/mL LAB CHEMISTRY METHOD 09/03/2024 10:39 AM EDT [facility] Blood Venous blood specimen / Unknown 09/03/2024 6:28 AM EDT 09/03/2024 8:22 AM EDT Narrative [facility] - 09/03/2024 10:39 AM EDT The Siemens Advia ExpoPromoteraur Chemiluminescent Immunoassay is used. Results obtained with different assay methods or kits cannot be used interchangeably. Results cannot be interpreted as absolute evidence of the presence or absence of malignant disease. us Jeramie Schwartz MD LAB BLOOD ORDERABLES Final Resul t Performing Organization Address City/[facility]/ZIP Co de Phone Number [facility] [address] [place] [address], [place] [phone] * Hemoglobin A1c (09/03/2024 6:28 AM EDT) [facility] Hemoglobin A1C 5.4 <6.5 % LAB CHEMISTRY METHOD 09/03/2024 10:38 AM EDT [facility] Mean Bld Glu Estim. 108 mg/dL LAB CHEMISTRY METHOD 09/03/2024 10:38 AM EDT [facility] Blood Venous blood specimen / Unknown 09/03/2024 6:28 AM EDT 09/03/2024 8:22 AM EDT us Jeramie Schwartz MD LAB BLOOD ORDERABLES Final Resul t Performing Organization Address City/[facility]/ZIP Co de Phone Number [facility] [address] [place] [address], [place] [phone] * (ABNORMAL) Comprehensive metabolic panel (09/03/2024 6:28 AM EDT) [facility] Signature Sodium 144 133 - 145 mmol/L LAB CHEMISTRY METHOD 09/03/2024 9:53 AM [facility] Potassium 4.4 3.5 - 5.5 mmol/L LAB CHEMISTRY METHOD 09/03/2024 9:53 AM [facility] Chloride 111(H) 96 - 110 mmol/L LAB CHEMISTRY METHOD 09/03/2024 9:53 AM [facility] CO2 26 21 - 32 mmol/L LAB CHEMISTRY METHOD 09/03/2024 9:53 AM [facility] Anion Gap 7 3 - 11 LAB CHEMISTRY METHOD 09/03/2024 9:53 AM [facility] Glucose 75 70 - 100 mg/dL LAB CHEMISTRY METHOD 09/03/2024 9:53 AM [facility] BUN 19 5 - 25 mg/dL LAB CHEMISTRY METHOD 09/03/2024 9:53 AM [facility] Creatinine 1.04 0.70 - 1.30 mg/dL LAB CHEMISTRY METHOD 09/03/2024 9:53 AM [facility] eGFR 78 >=60 mL/min/1. 73m2 LAB CHEMISTRY METHOD 09/03/2024 9:53 AM [facility] Comment:Calculation based on the Chronic Kidney Disease Epidemiology Collaboration (CKD-EPI) equation refit without adjustment for race. BUN/Creatinine Ratio 18.3 LAB CHEMISTRY METHOD 09/03/2024 9:53 AM [facility] Calcium 8.7 8.5 - 10.5 mg/dL LAB CHEMISTRY METHOD 09/03/2024 9:53 AM [facility] AST (SGOT) 14 10 - 42 unit/L LAB CHEMISTRY METHOD 09/03/2024 9:53 AM [facility] ALT (SGPT) 18 10 - 60 unit/L LAB CHEMISTRY METHOD 09/03/2024 9:53 AM [facility] Alkaline Phosphatase 86 42 - 121 unit/L LAB CHEMISTRY METHOD 09/03/2024 9:53 AM EDT [facility] Total Protein 6.9 6.0 - 8.0 g/dL LAB CHEMISTRY METHOD 09/03/2024 9:53 AM EDT [facility] Albumin 3.1(L) 3.2 - 5.0 g/dL LAB CHEMISTRY METHOD 09/03/2024 9:53 AM EDT [facility] Total Bilirubin 0.4 0.0 - 1.4 mg/dL LAB CHEMISTRY METHOD 09/03/2024 9:53 AM EDT [facility] Blood Venous blood specimen / Unknown 09/03/2024 6:28 AM EDT 09/03/2024 8:22 AM EDT us Jeramie Schwartz MD LAB BLOOD ORDERABLES Final Resul t [facility] [address] [place] [address], documented in this encounter Visit Diagnoses Diagnosis 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 unspecified duration, sequela ([facility] V24) Benign prostatic hyperplasia without lower urinary tract symptoms Type 2 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, left eye (CMS/[facility] V24, [facility] V28) Vitamin D deficiency, unspecified documented in this encounter Care Teams Mutual Fund Analyst Relationship Specialty Start Date End Date Jeramie Schwartz MD [address] [place] [address] Dr [address] [place] PCP - General Internal Medicine 06/02/24 documented as of this encounter
--- OUTSIDE RECORDS SUMMARY | 2025-01-14 11:50 | XMS_ITS | Encounter Summary ---
Author Organization [employer] Address [address] [place] [address] Care Team Providers Care First Coat Sander Name Role Phone Jeramie Schwartz MD Primary Care Provider [phone] Encounter Details Date Type Department Care Team (Late st Contact Info) Description 08/26/2024 Lab Requisition [facility] - Main Lab [address] [facility] [place] [address] Jeramie Schwartz MD [address] [place] [address] [address] [place] Diffuse traumatic brain injury with loss of [...] CBC auto differential (08/26/2024 6:00 AM EDT) WBC 3.6(L) 4.8 - 10.8 K/[facility] LAB HEMETOLOGY METHOD 08/26/2024 7:31 AM EDT [facility] RBC 3.80(L) 4.50 - 5.50 M/mcL LAB HEMETOLOGY METHOD 08/26/2024 7:31 AM [facility] Hemoglobin 10.1(L) 13.5 - 17.5 g/dL LAB HEMETOLOGY METHOD 08/26/2024 7:31 AM [facility] Hematocrit 32.6(L) 42.0 - 54.0 % LAB HEMETOLOGY METHOD 08/26/2024 7:31 AM [facility] MCV 84.9 79.0 - 98.0 FL LAB HEMETOLOGY METHOD 08/26/2024 7:31 AM [facility] MCH 26.3(L) 27.0 - 32.0 pcg LAB HEMETOLOGY METHOD 08/26/2024 7:31 AM [facility] MCHC 31.0(L) 32.0 - 37.0 g/dL LAB HEMETOLOGY METHOD 08/26/2024 7:31 AM [facility] RDW 16.6(H) 11.0 - 15.0 % LAB HEMETOLOGY METHOD 08/26/2024 7:31 AM [facility] Platelets 265 130 - 400 K/mcL LAB HEMETOLOGY METHOD 08/26/2024 7:31 AM [facility] MPV 12.3(H) 7.0 - 11.0 FL LAB HEMETOLOGY METHOD 08/26/2024 7:31 AM [facility] NRBC 0.0 <1.0 % LAB HEMETOLOGY METHOD 08/26/2024 7:31 AM [facility] NRBC Absolute 0.00 <0.10 K/mcL LAB HEMETOLOGY METHOD 08/26/2024 7:31 AM [facility] Neutrophils Relative 46.9 % LAB HEMETOLOGY METHOD 08/26/2024 7:31 AM [facility] Lymphocytes Relative 26.7 % LAB HEMETOLOGY METHOD 08/26/2024 7:31 AM [facility] Monocytes Relative 18.8 % LAB HEMETOLOGY METHOD 08/26/2024 7:31 AM [facility] Eosinophils Relative 6.7 % LAB HEMETOLOGY METHOD 08/26/2024 7:31 AM [facility] Basophils Relative 0.6 % LAB HEMETOLOGY METHOD 08/26/2024 7:31 AM [facility] Immature Granulocytes Relative 0.3 % LAB HEMETOLOGY METHOD 08/26/2024 7:31 AM [facility] Neutrophils Absolute 1.67 1.50 - 7.00 K/mcL LAB HEMETOLOGY METHOD 08/26/2024 7:31 AM [facility] Lymphocytes Absolute 0.95(L) 1.00 - 5.00 K/mcL LAB HEMETOLOGY METHOD 08/26/2024 7:31 AM [facility] Monocytes Absolute 0.67 0.20 - 1.00 K/mcL LAB HEMETOLOGY METHOD 08/26/2024 7:31 AM [facility] Eosinophils Absolute 0.24 0.00 - 0.50 K/mcL LAB HEMETOLOGY METHOD 08/26/2024 7:31 AM [facility] Basophils Absolute 0.02 0.00 - 0.20 K/mcL LAB HEMETOLOGY METHOD 08/26/2024 7:31 AM [facility] Immature Granulocytes Absolute 0.01 0.00 - 0.03 K/mcL LAB HEMETOLOGY METHOD 08/26/2024 7:31 AM [facility] Blood Venous blood specimen / Unknown 08/26/2024 6:00 AM EDT 08/26/2024 7:09 AM EDT us Jeramie Schwartz MD LAB BLOOD ORDERABLES Final Resul t [facility] ([facility]) [facility] [address] [place] [address], documented in this encounter Visit Diagnoses Diagnosis 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 unspecified duration, sequela (CMS/HCC V24) Hyperlipidemia, unspecified documented in this encounter Care Teams First Coat Sander Relationship Specialty Start Date End Date Jeramie Schwartz MD [address] [place] [address] Dr [address] [place], [place] PCP - General Internal Medicine 06/02/24 documented as of this encounter
--- OUTSIDE RECORDS SUMMARY | 2025-01-14 11:50 | XMS_ITS | Encounter Summary ---
Author Organization [facility] Address [address] [place] [address] Care Team Providers Care Salt Cutter Name Role Phone Jeramie Schwartz MD Primary Care Provider [phone] Encounter Details Date Type Department Care Team (Late st Contact Info) Description 11/13/2024 Lab Requisition [facility] - Main Lab [address] [place] [address] Jeramie Schwartz MD [address] [place] [address] Dr [address] [place], [place] Other fecal abnormalities Social History Tobacco Use Types Packs/Day Years [...] Diagnosis Comments CBC WITH AUTO DIFFERENTIAL Routine 11/13/2024 6:45 AM EDT Other fecal abnormalities CBC AND DIFFERENTIAL Routine 11/13/2024 6:45 AM EDT Other fecal abnormalities documented in this encounter Results * (ABNORMAL) CBC auto differential (11/13/2024 6:45 AM EDT) WBC 3.5(L) 4.8 - 10.8 K/mcL LAB HEMETOLOGY METHOD 11/13/2024 7:38 AM EDT [facility] RBC 5.10 4.50 - 5.50 M/mcL LAB HEMETOLOGY METHOD 11/13/2024 7:38 AM EDT [facility] Hemoglobin 13.0(L) 13.5 - 17.5 g/dL LAB HEMETOLOGY METHOD 11/13/2024 7:38 AM [facility] Hematocrit 41.2(L) 42.0 - 54.0 % LAB HEMETOLOGY METHOD 11/13/2024 7:38 AM [facility] LAB MCV 81.3 79.0 - 98.0 FL LAB HEMETOLOGY METHOD 11/13/2024 7:38 AM [facility] LAB MCH 25.6(L) 27.0 - 32.0 pcg LAB HEMETOLOGY METHOD 11/13/2024 7:38 AM [facility] LAB MCHC 31.6(L) 32.0 - 37.0 g/dL LAB HEMETOLOGY METHOD 11/13/2024 7:38 AM [facility] LAB RDW 17.0(H) 11.0 - 15.0 % LAB HEMETOLOGY METHOD 11/13/2024 7:38 AM [facility] LAB Platelets 148 130 - 400 K/mcL LAB HEMETOLOGY METHOD 11/13/2024 7:38 AM [facility] MPV LAB HEMETOLOGY METHOD 11/13/2024 7:38 AM [facility] LAB Comment:Not Measured NRBC 0.0 <1.0 % LAB HEMETOLOGY METHOD 11/13/2024 7:38 AM [facility] LAB NRBC Absolute 0.00 <0.10 K/mcL LAB HEMETOLOGY METHOD 11/13/2024 7:38 AM [facility] Neutrophils Relative 53.8 % LAB HEMETOLOGY METHOD 11/13/2024 7:38 AM [facility] Lymphocytes Relative 32.9 % LAB HEMETOLOGY METHOD 11/13/2024 7:38 AM [facility] Monocytes Relative 10.1 % LAB HEMETOLOGY METHOD 11/13/2024 7:38 AM [facility] Eosinophils Relative 2.6 % LAB HEMETOLOGY METHOD 11/13/2024 7:38 AM EDT [facility] Basophils Relative 0.6 % LAB HEMETOLOGY METHOD 11/13/2024 7:38 AM [facility] LAB Immature Granulocytes Relative 0.0 % LAB HEMETOLOGY METHOD 11/13/2024 7:38 AM EDT [facility] Neutrophils Absolute 1.87 1.50 - 7.00 K/mcL LAB HEMETOLOGY METHOD 11/13/2024 7:38 AM EDT [facility] Lymphocytes Absolute 1.14 1.00 - 5.00 K/mcL LAB [facility]EMETOLOGY [facility] Monocytes Absolute 0.35 0.20 - 1.00 K/mcL LAB HEMETOLOGY METHOD 11/13/2024 7:38 AM EDT [facility] Eosinophils Absolute 0.09 0.00 - 0.50 K/mcL LAB HEMETOLOGY METHOD 11/13/2024 7:38 AM EDT [facility] Basophils Absolute 0.02 0.00 - 0.20 K/mcL LAB HEMETOLOGY METHOD 11/13[facility]24 7[facility] Immature Granulocytes Absolute 0.00 0.00 - 0.03 K/mcL LAB HEMETOLOGY METHOD 11/13/2024 7:38 AM EDT [facility] Blood Venous blood specimen / Unknown 11/13/2024 6:45 AM EDT 11/13/2024 7:20 AM EDT us Jeramie Schwartz MD LAB BLOOD ORDERABLES Final Resul t [facility] [address] [place] [address], documented in this encounter Visit Diagnoses Diagnosis Other fecal abnormalities documented in this encounter Care Teams Salt Cutter Relationship Specialty Start Date End Date Jeramie Schwartz MD [address] [place] [address] Dr [address] MARS Chaudhry PCP - General Internal Medicine 06/02/24 documented as of this encounter
--- OUTSIDE RECORDS SUMMARY | 2025-01-14 11:50 | XMS_ITS | Encounter Summary ---
Author Organization [employer] Address [address] [place] [address] Care Team Providers Care Neck Cutter Name Role Phone Jeramie Schwartz MD Primary Care Provider [phone] Encounter Details Date Type Department Care Team (Latest Contact Info) Description 10/14/2024 Lab Requisition [facility] - Main Lab [address] [place] [address] Jeramie Schwartz MD [address] [place] [address] [address] [place] Type 2 diabetes mellitus with mild nonproliferative [...] Comments MANUAL DIFFERENTIAL - SYSMEX WAM Routine 10/14/2024 [...] diabetic retinopathy with macular edema, left eye ([facility] V24, [facility] V28) documented in this encounter Results * (ABNORMAL) Manual differential (10/14/2024 7:20 AM EDT) Neutrophils % 54.0 % LAB HEMETOLOGY METHOD 10/14/2024 9:21 AM [facility] Lymphocytes % 28.0 % LAB HEMETOLOGY METHOD 10/14/2024 9:21 AM [facility] Monocytes % 14.0 % LAB HEMETOLOGY METHOD 10/14/2024 9:21 AM [facility] Eosinophils % 4.0 % LAB HEMETOLOGY METHOD 10/14/2024 9:21 AM [facility] Basophils % 1.0 % LAB HEMETOLOGY METHOD 10/14/2024 9:21 AM [facility] Neutrophils Absolute Manual 1.67 1.50 - 7.00 K/mcL LAB HEMETOLOGY METHOD 10/14/2024 9:21 AM [facility] Lymphocytes Absolute 0.87(L) 1.00 - 5.00 K/mcL LAB HEMETOLOGY METHOD 10/14/2024 9:21 AM [facility] Monocytes Absolute Manual 0.43 0.20 - 1.00 K/mcL LAB HEMETOLOGY METHOD 10/14/2024 9:21 AM [facility] Eosinophils Absolute Manual 0.12 0.00 - 0.50 K/mcL LAB HEMETOLOGY METHOD 10/14/2024 9:21 AM [facility] Basophils Absolute Manual 0.03 0.00 - 0.20 K/mcL LAB HEMETOLOGY METHOD 10/14/2024 9:21 AM [facility] Rbc Morphology Present( A) Consistent with indices, Normal for LAB HEMETOLOGY METHOD 10/14/2024 9:21 AM EDT [facility] Platelet Morphology - WAM See Note(A) Normal LAB HEMETOLOGY METHOD 10/14/2024 9:21 AM EDT [facility] LAB Comment:PLT: Normal Ovalocytes Present 5 - 10%(A) (none) LAB HEMETOLOGY METHOD 10/14/2024 9:21 AM EDT [facility] Blood Venous blood specimen / Unknown 10/14/2024 7:20 AM EDT 10/14/2024 8:22 AM EDT us Jeramie Schwartz MD LAB BLOOD ORDERABLES Final Resul t [facility] [address] [place] [address], * (ABNORMAL) CBC auto differential (10/14/2024 7:20 AM EDT) WBC 3.1(L) 4.8 - 10.8 K/mcL LAB HEMETOLOGY METHOD [facility] RBC 4.80 4.50 - 5.50 M/mcL LAB HEMETOLOGY METHOD 10/14/2024 9:21 AM [facility] Hemoglobin 12.2(L) 13.5 - 17.5 g/dL LAB HEMETOLOGY METHOD 10/14/2024 9:21 AM EDT [facility] Hematocrit 39.0(L) 42.0 - 54.0 % LAB HEMETOLOGY METHOD 10/14/2024 9:21 AM EDT [facility] MCV 81.3 79.0 - 98.0 FL LAB HEMETOLOGY METHOD 10/14/2024 9:21 AM [facility] MCH 25.4(L) 27.0 - 32.0 pcg LAB HEMETOLOGY METHOD 10/14/2024 9:21 AM EDT [facility] MCHC 31.3(L) 32.0 - 37.0 g/dL LAB HEMETOLOGY METHOD 10/14/2024 9:21 AM EDT [facility] RDW 16.1(H) 11.0 - 15.0 % LAB HEMETOLOGY METHOD 10/14/2024 9:21 AM EDT [facility] Platelets 208 130 - 400 K/mcL LAB HEMETOLOGY METHOD 10/14/2024 9:21 AM EDT [facility] MPV LAB HEMETOLOGY METHOD 10/14/2024 9:21 AM EDT [facility] Comment:Not Measured NRBC 0.0 <1.0 % LAB HEMETOLOGY METHOD 10/14/2024 9:21 AM EDT [facility] NRBC Absolute 0.00 <0.10 K/mcL LAB HEMETOLOGY METHOD 10/14/2024 9:21 AM EDT [facility] Blood Venous blood specimen / Unknown 10/14/2024 7:20 AM EDT 10/14/2024 8:22 AM EDT us Jeramie Schwartz MD LAB BLOOD ORDERABLES Final Resul t [facility] [address] [place] [address], * Hemoglobin A1c (10/14/2024 7:20 AM EDT) Hemoglobin A1C 5.6 <6.5 % LAB CHEMISTRY METHOD 10/14/2024 12:17 PM EDT [facility] Mean Bld Glu Estim. 114 mg/dL LAB CHEMISTRY METHOD 10/14/2024 12:17 PM EDT [facility] Blood Venous blood specimen / Unknown 10/14/2024 7:20 AM EDT 10/14/2024 8:22 AM EDT Jeramie Schwartz MD LAB BLOOD ORDERABLES Final Resul t [facility] ([facility] [address] [place] [address], documented in this encounter Visit Diagnoses Diagnosis Type 2 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, left eye (CMS/[facility] V24, CMS/[facility] V28) documented in this encounter Care Teams Neck Cutter Relationship Specialty Start Date End Date Jeramie Schwartz MD [address] [place], [place] PCP - General Internal Medicine 06/02/24 documented as of this encounter
--- OUTSIDE RECORDS SUMMARY | 2025-01-14 11:50 | XMS_ITS | Encounter Summary ---
Author Organization [facility] Address [address] [place] [address] Care Team Providers Care Company Controller Name Role Phone Jeramie Schwartz MD Primary Care Provider [phone] Encounter Details Date Type Department Care Team (Late st Contact Info) Description 09/04/2024 Lab Requisition [facility] - Main Lab [address] [facility] [place] [address] Jeramie Schwartz MD [address] [place] [address] [address] [place], [place] Vitamin D deficiency, unspecified Social History [...] AM EDT) WBC 2.8(L) 4.8 - 10.8 K/mcL LAB HEMETOLOGY METHOD 09/04/2024 9:33 AM EDT [facility] RBC 4.20(L) 4.50 - 5.50 M/mcL LAB HEMETOLOGY METHOD 09/04/2024 9:33 AM EDT [facility] Hemoglobin 11.1(L) 13.5 - 17.5 g/dL LAB HEMETOLOGY METHOD 09/04/2024 9:33 AM EDT [facility] Hematocrit 36.0(L) 42.0 - 54.0 % LAB HEMETOLOGY METHOD 09/04/2024 9:33 AM EDT [facility] MCV 84.9 79.0 - 98.0 FL LAB HEMETOLOGY METHOD 09/04/2024 9:33 AM EDT [facility] MCH 26.2(L) 27.0 - 32.0 pcg LAB HEMETOLOGY METHOD 09/04/2024 9:33 AM EDT [facility] MCHC 30.8(L) 32.0 - 37.0 g/dL LAB HEMETOLOGY METHOD 09/04/2024 9:33 AM EDT [facility] RDW 17.7(H) 11.0 - 15.0 % LAB HEMETOLOGY [facility] Platelets 201 130 - 400 K/mcL LAB HEMETOLOGY METHOD 09/04/2024 9:33 AM EDT [facility] MPV LAB HEMETOLOGY METHOD 09/04/2024 9:33 AM EDT [facility] Comment:Not Measured NRBC 0.0 <1.0 % LAB HEMETOLOGY METHOD 09/04/2024 9:33 AM EDT [facility] NRBC Absolute 0.00 <0.10 K/mcL LAB HEMETOLOGY METHOD 09/04/2024 9:33 AM T [facility] Blood Venous blood specimen / Unknown 09/04/2024 7:32 AM EDT 09/04/2024 8:29 AM EDT us Jeramie Schwartz MD LAB BLOOD ORDERABLES Final Resul t [facility] [address] [place] [address], documented in this encounter Visit Diagnoses Diagnosis Vitamin D deficiency, unspecified documented in this encounter Care Teams Company Controller Relationship Specialty Start Date End Date Jeramie Schwartz MD [address] [place] [address] Dr [address] MARS Chaudhry PCP - General Internal Medicine 06/02/24 documented as of this encounter
--- OUTSIDE RECORDS SUMMARY | 2025-01-14 11:50 | XMS_ITS | Encounter Summary ---
Author Organization [facility] Address [address] [place] [address] Care Team Providers Care Damascener Name Role Phone Jeramie Schwartz MD Primary Care Provider [phone] Encounter Details Date Type Department Care Team (Late st Contact Info) Description 05/06/2024 Lab Requisition [facility] - Main Lab [address] [place] [address] Jeramie Schwartz MD [address] [place] [address] [address] [place], [place] Diffuse traumatic brain injury with loss [...] AM EST) WBC 3.2(L) 4.8 - 10.8 K/[facility] LAB HEMETOLOGY METHOD 05/06/2024 10:[address] [facility] RBC 4.40(L) 4.50 - 5.50 [...] [facility] Lymphocytes Absolute 1.11 1.00 - [...] t [facility] [address] [place] [address], documented in this encounter Visit Diagnoses Diagnosis 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 unspecified duration, sequela (CMS/HCC V24) documented in this encounter Care Teams Damascener Relationship Specialty Start Date End Date Jeramie Schwartz MD [address] [place] [address] Dr [address] [place], [place] PCP - General Internal Medicine 06/02/24 documented as of this encounter
--- OUTSIDE RECORDS SUMMARY | 2025-01-14 11:50 | XMS_ITS | Encounter Summary ---
Author Organization [facility] Address [address] [place] [address] Care Team Providers Care Oven Attendant Name Role Phone Jeramie Schwartz MD Primary Care Provider [phone] Encounter Details Date Type Department Care Team (Late st Contact Info) Description 12/14/2024 Lab Requisition [facility] - Main Lab [address] [place] [address] Jeramie Schwartz MD [address] [place] [address] [address] [place], [place] Other fecal abnormalities Social History Tobacco [...] Diagnosis Comments CBC WITH AUTO DIFFERENTIAL Routine 12/14/2024 5:55 AM EDT Other fecal abnormalities CBC AND DIFFERENTIAL Routine 12/14/2024 5:55 AM EDT Other fecal abnormalities documented in this encounter Results * (ABNORMAL) CBC auto differential (12/14/2024 5:55 AM EDT) WBC 2.6(L) 4.8 - 10.8 K/mcL LAB HEMETOLOGY METHOD 12/14/2024 6:47 AM EDT [facility] RBC 4.70 4.50 - 5.50 M/mcL LAB HEMETOLOGY METHOD 12/14/2024 6:47 AM EDT [facility] Hemoglobin 11.9(L) 13.5 - 17.5 g/dL LAB HEMETOLOGY METHOD 12/14/2024 6:47 AM [facility] Hematocrit 38.9(L) 42.0 - 54.0 % LAB HEMETOLOGY METHOD 12/14/2024 6:47 AM [facility] MCV 82.6 79.0 - 98.0 FL LAB HEMETOLOGY METHOD 12/14/2024 6:47 AM [facility] MCH 25.3(L) 27.0 - 32.0 pcg LAB HEMETOLOGY METHOD 12/14/2024 6:47 AM [facility] MCHC 30.6(L) 32.0 - 37.0 g/dL LAB HEMETOLOGY METHOD 12/14/2024 6:47 AM [facility] RDW 17.1(H) 11.0 - 15.0 % LAB HEMETOLOGY METHOD 12/14/2024 6:47 AM [facility] Platelets 176 130 - 400 K/mcL LAB HEMETOLOGY METHOD 12/14/2024 6:47 AM [facility] MPV 10.7 7.0 - 11.0 FL LAB HEMETOLOGY METHOD 12/14/2024 6:47 AM [facility] NRBC 0.0 <1.0 % LAB HEMETOLOGY METHOD 12/14/2024 6:47 AM [facility] NRBC Absolute 0.00 <0.10 K/mcL LAB HEMETOLOGY METHOD 12/14/2024 6:47 AM [facility] Neutrophils Relative 40.6 % LAB HEMETOLOGY METHOD 12/14/2024 6:47 AM [facility] Lymphocytes Relative 35.7 % LAB HEMETOLOGY METHOD 12/14/2024 6:47 AM [facility] Monocytes Relative 20.2 % LAB HEMETOLOGY METHOD 12/14/2024 6:47 AM EDT [facility] Eosinophils Relative 2.7 % LAB HEMETOLOGY METHOD 12/14/2024 6:47 AM EDT [facility] Basophils Relative 0.4 % LAB [facility]EMETOLOGY [facility]24 [facility] Immature Granulocytes Relative 0.4 % LAB HEMETOLOGY METHOD 12/14/2024 6:47 AM EDT [facility] Neutrophils Absolute 1.05(L) 1.50 - 7.00 K/mcL LAB HEMETOLOGY METHOD 12/14/2024 6:47 AM EDT [facility] Lymphocytes Absolute 0.92(L) 1.00 - 5.00 K/mcL LAB HEMETOLOGY METHOD 12/14/2024 6:47 AM EDT [facility] Monocytes Absolute 0.52 0.20 - 1.00 K/mcL LAB HEMETOLOGY METHOD 12/14/2024 6:47 AM EDT [facility] Eosinophils Absolute 0.07 0.00 - 0.50 K/mcL LAB HEMETOLOGY METHOD 12/14/2024 6:47 AM EDT [facility] Basophils Absolute 0.01 0.00 - 0.20 K/mcL LAB HEMETOLOGY METHOD 12/14/2024 6:47 AM T [facility] Immature Granulocytes Absolute 0.01 0.00 - 0.03 K/mcL LAB HEMETOLOGY METHOD 12/14/2024 6:47 AM EDT [facility] Blood Venous blood specimen / Unknown 12/14/2024 5:55 AM EDT 12/14/2024 6:36 AM EDT us Jeramie Schwartz MD LAB BLOOD ORDERABLES Final Resul t [facility] [address] [place] [address], documented in this encounter Visit Diagnoses Diagnosis Other fecal abnormalities documented in this encounter Care Teams Oven Attendant Relationship Specialty Start Date End Date Jeramie Schwartz MD [address] MARS Chaudhry PCP - General Internal Medicine 06/02/24 documented as of this encounter
--- OUTSIDE RECORDS SUMMARY | 2025-01-14 11:50 | XMS_ITS | Encounter Summary ---
Author Organization [facility] Address [address] [place] [address] Care Team Providers Care Hearing Healthcare Practitioner Name Role Phone Jeramie Schwartz MD Primary Care Provider Encounter Details Date Type Department Care Team (Late st Contact Info) Description 09/09/2024 Lab Requisition [facility] - Main Lab [address] [facility] [place] [address] Jeramie Schwartz MD [address] [place] [address] [address] [place] 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 unspecified duration, sequela (CMS/HCC V24); Type 2 diabetes mellitus without complications (CMS/HCC V24, CMS/HCC V28) Social History Tobacco [...] consciousness of unspecified duration, sequela (CMS/HCC V24) Type 2 diabetes mellitus without complications (CMS/HCC V24, CMS/HCC V28) CBC AND DIFFERENTIAL Routine 09/09/2024 6:15 AM EDT 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 unspecified duration, sequela (CMS/HCC V24) Type 2 diabetes mellitus without complications (CMS/HCC V24, CMS/HCC V28) documented in this encounter Results * (ABNORMAL) CBC auto differential (09/09/2024 6:15 AM EDT) WBC 3.8(L) 4.8 - 10.8 K/mcL LAB HEMETOLOGY METHOD 09/09/2024 12:[address] [facility] RBC 4.20(L) 4.50 - 5.50 M/mcL LAB HEMETOLOGY METHOD 09/09/2024 12:[address] [facility] Hemoglobin 11.0(L) 13.5 - 17.5 g/dL LAB HEMETOLOGY METHOD 09/09/2024 12:[address] [facility] Hematocrit 35.2(L) 42.0 - 54.0 % LAB HEMETOLOGY METHOD 09/09/2024 12:[address] [facility] MCV 84.4 79.0 - 98.0 FL LAB HEMETOLOGY METHOD 09/09/2024 12:[address] [facility] MCH 26.4(L) 27.0 - 32.0 pcg LAB HEMETOLOGY METHOD 09/09/2024 12:[address] [facility] MCHC 31.3(L) 32.0 - 37.0 g/dL LAB HEMETOLOGY METHOD 09/09/2024 12:[address] [facility] RDW 17.3(H) 11.0 - 15.0 % LAB HEMETOLOGY METHOD 09/09/2024 12:[address] [facility] Platelets 193 130 - 400 K/mcL LAB HEMETOLOGY METHOD 09/09/2024 12:[address] [facility] MPV 12.4(H) 7.0 - 11.0 FL LAB HEMETOLOGY METHOD 09/09/2024 12:[address] [facility] NRBC 0.0 <1.0 % LAB HEMETOLOGY METHOD 09/09/2024 12:[address] [facility] NRBC Absolute 0.00 <0.10 K/[facility] LAB HEMETOLOGY METHOD 09/09/2024 12:[address] [facility] Neutrophils Relative 66.4 % LAB HEMETOLOGY METHOD 09/09/2024 12:[address] [facility] Lymphocytes Relative 15.9 % LAB HEMETOLOGY METHOD 09/09/2024 12:[address] [facility] Monocytes Relative 12.7 % LAB HEMETOLOGY METHOD 09/09/2024 12:[address] [facility] Eosinophils Relative 4.2 % LAB HEMETOLOGY METHOD 09/09/2024 12:[address] [facility] Basophils Relative 0.5 % LAB HEMETOLOGY METHOD 09/09/2024 12:[address] [facility] Immature Granulocytes Relative 0.3 % LAB HEMETOLOGY METHOD 09/09/2024 12:[address] [facility] Neutrophils Absolute 2.51 1.50 - 7.00 K/mcL LAB HEMETOLOGY METHOD 09/09/2024 12:[address] [facility] Lymphocytes Absolute 0.60(L) 1.00 - 5.00 K/mcL LAB HEMETOLOGY METHOD 09/09/2024 12:[address] [facility] Monocytes Absolute 0.48 0.20 - 1.00 K/mcL LAB HEMETOLOGY METHOD 09/09/2024 12:[address] [facility] Eosinophils Absolute 0.16 0.00 - 0.50 K/mcL LAB HEMETOLOGY METHOD 09/09/2024 12:[address] [facility] Basophils Absolute 0.02 0.00 - 0.20 K/mcL LAB HEMETOLOGY METHOD 09/09/2024 12:[address] [facility] Immature Granulocytes Absolute 0.01 0.00 - 0.03 K/mcL LAB HEMETOLOGY METHOD 09/09/2024 12:[address] [facility] Blood Venous blood specimen / Unknown 09/09/2024 6:15 AM EDT 09/09/2024 7:18 AM EDT Jeramie Schwartz MD LAB BLOOD ORDERABLES Final Resul t [facility] [address] [place] [address], documented in this encounter Visit Diagnoses Diagnosis 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 unspecified duration, sequela (CMS/HCC V24) Type 2 diabetes mellitus without complications (CMS/HCC V24, CMS/HCC V28) documented in this encounter Care Teams Hearing Healthcare Practitioner Relationship Specialty Start Date End Date Jeramie Schwartz MD [address] [place] [address] [address] [place] PCP - General Internal Medicine 06/02/24 documented as of this encounter
== END 2025-01-14 10:16 | disposition home or self-care (01) ==
PROVIDERS: Visit Provider Nurse Practitioner Family
DX: R13.14 Dysphagia, pharyngoesophageal phase (principal); K76.89 Other specified diseases of liver; K86.2 Cyst of pancreas
CPT/HCPCS: 99214; G2211

== ENCOUNTER → 2025-01-14 09:55 | Outpatient (BNVA) | payer MEDICARE, MEDICAID, SELFPAY | PROVIDERS: Visit Provider Nurse Practitioner Family | DX: R13.14 Dysphagia, pharyngoesophageal phase (principal); K86.2 Cyst of pancreas; K62.9 Disease of anus and rectum, unspecified | CPT/HCPCS: 99212 ==

== ENCOUNTER 2025-01-29 09:21 | Emergency (ER) | payer MEDICARE, MEDICAID, SELFPAY ==
--- NOTE | 2025-01-29 | ECG_ITS ---
Test Reason : siezure Blood Pressure : */* mmHG Vent. Rate : 88 BPM Atrial Rate : 88 BPM P-R Int : 136 ms QRS Dur : 84 ms QT Int : 348 ms P-R-T Axes : 29 -28 5 degrees QTcB Int : 421 ms Sinus rhythm with frequent Premature ventricular complexes Otherwise normal ECG When compared with ECG of 07-Oct-2024 12:15, Premature ventricular complexes are now Present Referred By: Generic ED Physician Electronically Signed By: Eleno Santana
--- NOTE | ~2025-01-29 | XR_ITS ---
EXAMINATION: XR CHEST CLINICAL INFORMATION: Seizure, hypoxia, R/O pneumonia COMPARISON: October 07, 2024 TECHNIQUE: Frontal view of the chest was obtained. FINDINGS: The lung volumes are again noted. Heart size is within normal limits. Overall, appearance is similar to the prior. XR/XR chest 1V IMPRESSION: No acute abnormality. Electronically signed by: Kyle Soares MD 01/29/2025 12:50 PM EDT
--- NOTE | ~2025-01-29 | CT_ITS ---
EXAMINATION: CT CERVICAL SPINE WITHOUT CONTRAST CLINICAL INFORMATION: Fall with neck pain. COMPARISON: June 14, 2023 TECHNIQUE: Axial imaging was performed from the base of the skull through T2 without IV contrast. Coronal and sagittal reformatted images were generated from the original axial data set. ALARA: The examination used one or more of the following radiation dose reduction techniques: Automated exposure control, iterative reconstruction, and/or adjustment of mA and/or KV. FINDINGS: There is straightening of cervical lordosis. Again noted is degenerative disc disease at C5-6, C6-7, and C7-T1, saphenous and C6-7 with further progression of loss of disc height compared to the prior. There is also degenerative sclerosis and osteophytes anterior C1-C2 articulation. No fracture lines are identified. Lung apexes and soft tissues are unremarkable CT/CT cervical spine wo IV con IMPRESSION: Multilevel degenerative disc disease most advanced at C6-7, progressive since the prior. There is straightening of cervical lordosis. No acute abnormality. Electronically signed by: Kyle Soares MD 01/29/2025 11:47 AM EDT
--- NOTE | ~2025-01-29 | CT_ITS ---
EXAMINATION: CT HEAD AND FACIAL BONES WITHOUT CONTRAST CLINICAL INFORMATION: Seizure, Fall, right lateral orbital swelling and lordosis. Rule out fracture. 69-year-old male COMPARISON: CT head 10/07/2024. 06/14/2023. TECHNIQUE: Contiguous axial imaging was performed from the skull base to vertex, as well as the maxillofacial bones/mandible without intravenous administration of contrast. Multiplanar reformatted imaging was constructed from the axial data set. This CT examination was performed using dose optimization techniques as appropriate, variously including the following: *Automated exposure control *Adjustment of mA and/or kV according to patient size (this includes techniques or standardized protocols for targeted exams where dose is matched to indication/reason for exam; i.e. extremities or head) *Use of iterative reconstruction technique CT HEAD: There is no evidence of intracranial hemorrhage or extra-axial fluid collection. There is no mass effect, or edema. No CT evidence of acute territorial infarct. Ventricles, sulci, and cisterns are mildly diffusely prominent, with more prominent posterior fossa atrophy. No hydrocephalus. No midline shift. Negative hyperdense MCA sign. Negative insular ribbon sign. Mild degree of supratentorial white matter hypodensities in keeping with small vessel ischemic changes. There are falcine calcifications present. Partial empty sella. Globes are intact. The intra-orbital contents image normally. No extracranial soft tissue abnormalities. The calvarium and skull base are intact without fracture. CT MAXILLOFACIAL BONES: The mandible is intact without fracture. The TM joints are normally oriented, with mild degenerative changes present. There are torus mandibularis, as well as maxillary buccal torus as well. The nasal bones, nasal process, maxilla, orbits, zygomatic arches, pterygoid plates, and sphenoid bone are intact without fracture. There is mild rightward nasal septal deviation. Paranasal sinuses are normally pneumatized throughout. No paranasal sinus fractures. The mastoids and tympanic cavities are normally aerated. Imaged maxillofacial/neck soft tissues demonstrate soft tissue swelling of the right lateral orbit and preseptal region extending to overlie the zygoma. CT/CT head/brain wo IV con IMPRESSION: 1. There is no intracranial hemorrhage or mass effect. There is no calvarial, skull base, or maxillofacial fracture. The orbits are intact. 2. There is soft tissue swelling overlying the right lateral orbit and preseptal region. 3. There is posterior fossa atrophy. Electronically signed by: Lenny Esquivel MD 01/29/2025 11:54 AM EDT RP
[2025-01-29 09:29] VITALS: BP 111/77; BP 118/96; PULSE 94; PULSE 98; RESP 12; TEMP 36.5; O2SAT 94; O2SAT 96; BMI 29.5
[2025-01-29 10:00] VITALS: BP 108/67; PULSE 94; RESP 13; TEMP 36.1; O2SAT 96
[2025-01-29 10:06] LABS: Glucose, Whole Blood 125 mg/dL (60-115)
[2025-01-29 10:12] LABS: MANUAL DIFF FLAG NO
[2025-01-29 10:33] LABS: Ammonia 24 umol/L (13-55)
--- NOTE | 2025-01-29 10:35 | ED.SEIZURE ---
HPI - Seizure General Chief Complaint: Seizure Stated Complaint: Unwit fall with seizure after, -LOC, hematoma Dima Time Seen by Provider: 01/29/25 10:32 Source: patient Mode of arrival: EMS Limitations: language barrier (Patient's 1st language is Tuvaluan Creole, who speaks some Trinidadian, iPad Tuvaluan Creole supervisor cloth winding was used) History of Present Illness ED Provider: Dr. Xiang Verde HPI Narrative: 69-year-old male seizure disorder, hyperlipidemia, DVT, TBI, diabetes, hypertension who presents emergency department from [facility] for evaluation of unwitnessed seizure and fall. According to EMS, patient was found frothing at the mouth, O2 sat was 80% on room air and they placed him on oxygen 4 L via nasal cannula. Patient was also noted to have bitten in his tongue. At the time my evaluation the patient is awake and alert and was able to answer questions in Trinidadian and in Tuvaluan Creole with the supervisor cloth winding. He states that he is having pain on the right side of his head where he has an area of ecchymosis swelling. Otherwise he has no other complaints. Related Data Home Medications ?Medication ?Instructions ?Recorded ?Confirmed aluminum-mag hydroxide-simethicone 5 ml PO QID PRN Heartburn 05/25/24 11/25/24 400 mg-400 mg-40 mg/5 mL oral susp (Mylanta Maximum Strength) benztropine 0.5 mg tablet 0.5 mg PO BID 05/25/24 11/25/24 cholecalciferol (vitamin D3) 25 25 mcg PO DAILY 05/25/24 11/25/24 mcg (1,000 unit) capsule glucagon 1 mg solution for 1 mg subcut Q20M PRN Sever 05/25/24 11/25/24 injection Hypoglycemia metoprolol succinate 25 mg 25 mg PO DAILY 05/25/24 11/25/24 tablet,extended release 24 hr olanzapine 10 mg tablet 10 mg PO DAILY 05/25/24 11/25/24 sennosides 8.6 mg capsule (senna) 8.6 mg PO BEDTIME 05/25/24 11/25/24 acetaminophen 325 mg tablet 650 mg PO Q6H PRN Fever Or Pain 10/07/24 11/25/24 ascorbic acid (vitamin C) 500 mg 500 mg PO DAILY 10/07/24 11/25/24 tablet ferrous sulfate 325 mg (65 mg 325 mg PO DAILY 10/07/24 11/25/24 iron) tablet fluphenazine HCl 5 mg tablet 5 mg PO BID 10/07/24 11/25/24 guaifenesin 100 mg/5 mL oral 200 mg PO Q4H PRN Cough 10/07/24 11/25/24 liquid (Etta-Tussin) levetiracetam 750 mg 1,500 mg PO BID 10/07/24 11/25/24 tablet,extended release 24 hr lorazepam 2 mg/mL injection syringe 1 mg IV Q1H PRN Acute Agitation 10/07/24 11/25/24 pregabalin 300 mg capsule 300 mg PO BID 10/07/24 11/25/24 sennosides 8.6 mg tablet (senna) 8.6 mg PO DAILY PRN Constipation 10/07/24 11/25/24 sodium phosphates 19 gram-7 118 ml CO DAILY PRN Constipation 10/07/24 11/25/24 gram/118 mL enema (Fleet Enema) omeprazole 40 mg capsule,delayed 40 mg PO BID 01/14/25 release Previous Rx's ?Medication ?Instructions ?Recorded tamsulosin 0.4 mg capsule 0.4 mg PO BEDTIME 30 days #30 caps 11/25/24 Allergies Allergy/AdvReac Type Severity Reaction Status Date / Time No Known Drug Allergies Allergy Unknown none Verified 01/29/25 09:33 [facility] Past Medical History Medical History (Updated 01/29/25 @ 14:22 by Xiang Verde MD) Pancreatic cyst Psychotic disorder Hyperlipidemia DVT (deep venous thrombosis) Epilepsy Diabetes mellitus Hypertension TBI (traumatic brain injury) Social History Social History Household Members: Other Housing: Custodial Do you presently have visiting nurse or other home services: No Patient Tobacco Use Status: Tobacco use Unknown Advance Directives: Yes Advance Directives on File: Yes Advance Directives Date on File: 08/23/23 service: No Physical Exam Vital Signs: Vital Signs: Last Vital Signs Temp 98.7 F 01/29/25 12:05 Pulse 79 01/29/25 12:05 Resp 19 01/29/25 12:05 BP 101/59 L 01/29/25 12:05 Pulse Ox 94 01/29/25 12:05 O2 Del Method Room Air 01/29/25 12:05 Oxygen Flow Rate 4 01/29/25 09:29 BMI result Body Mass Index 29.5 Vital signs were normal Exam: General: Awake, alert in no distress Head: Normocephalic, ecchymosis and tenderness to the right lateral orbital wall and right forehead EENT: PERRL, sclera and conjunctiva are normal, mouth with no erythema or exudates Neck: Supple, no adenopathy Lung: breath sounds symmetric, no wheezing, no rales and no rhonchi Chest: symmetric movement, nontender Heart: regular rate and rhythm, normal S1, S2 no murmurs or rubs Abdomen: soft, non-tender, nondistended, normal bowel sounds Back: no vertebral tenderness, no CVAT Extremities: no deformities, moves all extremities symmetrically, no edema Neuro: Awake, alert, oriented to person, he knows that he is in the hospital, speech is dysarthric, cranial nerves 2-12 intact, moves all extremities symmetrically Psych: Pleasant, cooperative Medications Administered Discontinued Medications Generic Name Dose Route Start Last Admin Trade Name Freq PRN Reason Stop Dose Admin Midazolam HCl 2 mg 01/29/25 10:45 01/29/25 11:13 Midazolam Hcl 2 Mg/2 Ml Vial IVPUSH 01/29/25 10:46 2 mg ONCE ONE Administration Medical Decision Making Medical Decision Making [facility] Narrative: 69-year-old male seizure disorder, hyperlipidemia, DVT, TBI, diabetes, hypertension who presents emergency department from [facility] for evaluation of unwitnessed seizure and fall. According to EMS, patient was found frothing at the mouth, O2 sat was 80% on room air and they placed him on oxygen 4 L via nasal cannula. Patient was also noted to have bitten in his tongue. At the time my evaluation the patient is awake and alert and was able to answer questions in Trinidadian and in [place] Creole with the supervisor cloth winding. He states that he is having pain on the right side of his head where he has an area of ecchymosis swelling. Otherwise he has no other complaints. Patient's oriented to person and place, in his speech is dysarthric but comprehensible-I suspect this is baseline, he did have evidence of trauma to the right forehead and right lateral orbit otherwise exam was unremarkable. Differential diagnosis: ?Includes but is not limited to stroke, intracranial hemorrhage, skull fracture, facial fracture, seizure, anemia, electrolyte abnormalities Course: Patient was given Versed 2 mg IV to raise his seizure threshold. My independent interpretation patient's laboratory evaluation: White blood cell count low 4000, H&H was normal 14.2 and 43.3, MCV was normal 80.6. Coags were normal. Glucose elevated 117. Alcohol below detectable limits, 14:22 My independent interpretation patient's laboratory evaluation is as follows: WBC was low 4000. H&H and platelet count were normal. Glucose was elevated 117. Troponin was detectable but not elevated at 4.5. Ethanol was below detectable limits. CT head, neck and facial bones did not reveal any acute fractures or bleeding in the brain. Chest x-ray revealed no infiltrates. The patient appears to be back at his baseline therefore he will be discharged back to his care facility. Differential Diagnosis Differential Diagnoses: The differential diagnosis associated with the presentation includes (See above) Admission/Observation Consideration of admission/observation: Escalation of care including admission/observation considered (Yes) Lab Data MDM Lab Attestation statement: I reviewed the patient's lab results. 01/29/25 10:04 01/29/25 10:04 Labs: Lab Results 01/29/25 01/29/25 Range/Units 09:32 10:04 WBC 4.0 L (4.8-10.8) X10*3/uL RBC 5.37 D (4.60-5.80) X10*6/uL Hgb 14.2 D (14.0-18.0) g/dl Hct 43.3 D (42.0-52.0) % MCV 80.6 (80.0-98.0) fL MCH 26.4 L (27.0-33.0) pg MCHC 32.8 (31.0-36.0) g/dl RDW 16.3 H (11.0-16.0) % Plt Count 215 D (160-400) X10*3/uL MPV 11.8 (9.4-12.4) fL Immature Gran % (Auto) 0.5 H (0.0-0.4) % Neut % (Auto) 82.9 H (45-73) % Lymph % (Auto) 7.3 L (20-40) % Walton % (Auto) 8.8 (2-11) % Eos % (Auto) 0.0 (0-4) % Baso % (Auto) 0.5 (0-2) % Lymph # (Auto) 0.3 L (1.2-4.9) X10*3/uL Walton # (Auto) 0.4 (0.1-1.2) X10*3/uL Eos # (Auto) 0.0 (0.0-0.4) X10*3/uL Baso # (Auto) 0.0 (0.0-0.2) X10*3/uL Abs Immat Gran (auto) 0.02 (0.00-0.03) X10*3/uL Absolute Neuts (auto) 3.3 (2.0-8.3) x10*3/uL Absolute Nucleated RBC 0.000 (0.0-0.012) X10*3/uL Nucleated RBC % (auto) 0.0 (0.0-0.2) /100WBC PT 11.8 (10.9-12.4) SEC INR 1.0 (0.9-1.1) APTT 23.5 L (26.7-34.1) SEC Sodium 142 (135-145) mmol/L Potassium 4.2 (3.3-5.1) mmol/L Chloride 107 (96-108) mmol/L Carbon Dioxide 24 (22-29) mmol/L Anion Gap 15 (12-20) BUN 13 (9-16) mg/dL Creatinine 1.08 (0.5-1.4) mg/dL Estim Creat Clear Calc 71.8 Estimated GFR > 60 POC Glucose 125 H (60-115) mg/dL Random Glucose 117 H (60-115) mg/dL Calcium 9.4 D (8.4-10.2) mg/dL Ammonia 24 (13-55) umol/L Troponin I High Sens 4.5 D (<3.5-35.0) ng/L Salicylates < 5.0 L (15-30) mg/dL Ethyl Alcohol < 10 mg/dL Independent Interpretation I performed an independent interpretation of an: EKG Interpretation: My interpretation of the patient's 12 EKG done on 01/29/2025 at 09:53 hours is as follows: Normal sinus rhythm with a rate of 88, normal CO, QRS duration QTC interval, no ST segment elevation, no ST segment depression, PVCs but no PACs, no significant T-wave abnormalities. External Record Review External record reviewed: Inpatient record Chronic Conditions Patient?s care impacted by: Other (Seizure disorder, hypertension and diabetes) Critical Care Time Critical Care Time Critical Care Time: Yes Total Critical Care Time: 45 Attestation: Critical Care: The patient was critically ill with a high probability of imminent or life threatening deterioration. I spent greater than 30 minutes of discontinuous time evaluating the patient,delivering critical care at the bedside, discussing and evaluating pertinent data with consultants. Critical care time does not include time spent performing separately billable procedures or teaching. Total time spent performing critical care was 45 minutes. Discharge Plan Discharge Clinical Impression: Contusion of face, Seizure Closed head injury Qualifiers: Encounter type: initial encounter Qualified Code(s): S09.90XA - Unspecified injury of head, initial encounter Patient Disposition: Home, Self-Care Instructions: Head Injury (ED), Facial Contusion (ED) Additional Instructions: Your blood work was unremarkable. The CT scan of your head, neck and face did not reveal any broken bones/fractures or bleeding in your brain Your chest x-ray revealed no evidence of pneumonia. You were treated with Versed 2 mg IV to try to raise your seizure threshold and prevent you from having another seizure. Continue taking your medications as prescribed by your providers. Follow-up with your doctor in 2 days. Please return to the emergency department if your symptoms get worse or if you develop any symptoms that are concerning to you. Prescriptions: No Action sennosides [senna] 8.6 mg Tablet 8.6 mg PO DAILY PRN (Reason: Constipation) acetaminophen 325 mg Tablet 650 mg PO Q6H PRN (Reason: Fever Or Pain) guaifenesin [Etta-Tussin] 100 mg/5 mL Liquid 200 mg PO Q4H PRN (Reason: Cough) ascorbic acid (vitamin C) 500 mg Tablet 500 mg PO DAILY ferrous sulfate 325 mg (65 mg iron) Tablet 325 mg PO DAILY lorazepam 2 mg/mL Syringe 1 mg IV Q1H PRN (Reason: Acute Agitation) levetiracetam 750 mg Tablet Extended Release 24 Hr 1,500 mg PO BID Fleet Enema 19-7 gram/118 mL enema 118 ml CO DAILY PRN (Reason: Constipation) fluphenazine HCl 5 mg Tablet 5 mg PO BID pregabalin 300 mg Capsule 300 mg PO BID tamsulosin 0.4 mg capsule 0.4 mg PO BEDTIME 30 Days Qty: 30 3RF benztropine 0.5 mg tablet 0.5 mg PO BID senna 8.6 mg capsule 8.6 mg PO BEDTIME cholecalciferol (vitamin D3) 25 mcg (1,000 unit) capsule 25 mcg PO DAILY olanzapine 10 mg tablet 10 mg PO DAILY alum-mag hydroxide-simeth [Mylanta Maximum Strength] 400-400-40 mg/5 mL suspension 5 ml PO QID PRN (Reason: Heartburn) glucagon 1 mg recon soln 1 mg subcut Q20M PRN (Reason: Sever Hypoglycemia) Rx Instructions: until target blood sugar attained metoprolol succinate 25 mg tablet extended release 24 hr 25 mg PO DAILY omeprazole 40 mg capsule,delayed release(DR/EC) 40 mg PO BID Print Language: Trinidadian
[2025-01-29 10:38] LABS: Salicylate < 5.0 mg/dL (15-30)
[2025-01-29 10:39] LABS: INTERNATIONAL NORM RATIO 1.0 (0.9-1.1); Prothrombin Time 11.8 SEC (10.9-12.4)
[2025-01-29 10:43] LABS: Partial Thromboplastin Time 23.5 SEC (26.7-34.1)
[2025-01-29 10:45] LABS: Hematocrit 43.3 % (42.0-52.0); Hemoglobin 14.2 g/dl (14.0-18.0); Imm Gran Abs Auto 0.02 X10*3/uL (0.00-0.03); Imm Gran Pct Auto 0.5 % (0.0-0.4); Lymphocytes Absolute Auto 0.3 X10*3/uL (1.2-4.9); Mean Corpuscular HGB Conc 32.8 g/dl (31.0-36.0); Mean Corpuscular Hemoglobin 26.4 pg (27.0-33.0); Mean Corpuscular Volume 80.6 fL (80.0-98.0); NRBC Abs Auto 0.000 X10*3/uL (0.0-0.012); NRBC Pct Auto 0.0 /100WBC (0.0-0.2); Platelet Count 215 X10*3/uL (160-400); Red Blood Count 5.37 X10*6/uL (4.60-5.80); White Blood Count 4.0 X10*3/uL (4.8-10.8)
[2025-01-29 10:46] LABS: Anion Gap 15 (12-20); Blood Urea Nitrogen 13 mg/dL (9-16); Calcium 9.4 mg/dL (8.4-10.2); Carbon Dioxide 24 mmol/L (22-29); Chloride 107 mmol/L (96-108); Creatinine Clr Calc Pharmacy 71.8; Estimated Glomerular Filt Rate > 60; Potassium 4.2 mmol/L (3.3-5.1); Sodium 142 mmol/L (135-145); Troponin-I High Sensitivity 4.5 ng/L (<3.5-35.0)
[2025-01-29 12:05] VITALS: BP 101/59; PULSE 79; RESP 19; TEMP 37.1; O2SAT 94
--- OUTSIDE RECORDS SUMMARY | 2025-01-29 12:29 | XMS_ITS | Encounter Summary ---
Author Organization [facility] Address [address] [place] [address] Care Team Providers Care Cane Weigher Helper Name Role Phone Jeramie Schwartz MD Primary Care Provider [phone] Encounter Details Date Type Department Care Team (Latest Contact Info) Description 09/03/2024 Lab Requisition [facility] - Main Lab [address] [facility] [place] [address] Jeramie Schwartz MD [address] [place] [address] [address] [place] Diffuse traumatic brain injury with loss of [...] Lavender tube (09/03/2024 6:28 AM EDT) Pathologist [facility] Extra Tube Hold for add-ons. 10/01/2024 8:03 AM EDT [facility] Comment:Auto resulted. Blood Venous blood specimen / Unknown 09/03/2024 6:28 AM EDT 09/03/2024 8:26 AM EDT us Jeramie Schwartz MD LAB BLOOD ORDERABLES Final Resul t [facility] [address] [place] [address], * (ABNORMAL) CBC auto differential (09/03/2024 6:28 AM EDT) [facility] WBC 3.9(L) 4.8 - 10.8 K/mcL LAB HEMETOLOGY METHOD 09/03/2024 8:55 AM [facility] RBC 4.30(L) 4.50 - 5.50 M/mcL LAB HEMETOLOGY METHOD 09/03/2024 8:55 AM [facility] Hemoglobin 11.3(L) 13.5 - 17.5 g/dL LAB HEMETOLOGY METHOD 09/03/2024 8:55 AM [facility] Hematocrit 36.9(L) 42.0 - 54.0 % LAB HEMETOLOGY METHOD 09/03/2024 8:55 AM EDT [facility] MCV 86.0 79.0 - 98.0 FL [...] 09/03/2024 8:55 AM [facility] Platelets 278 130 - 400 K/mcL LAB HEMETOLOGY METHOD 09/03/2024 8:55 AM [facility] MPV 12.7(H) 7.0 - 11.0 FL LAB HEMETOLOGY METHOD 09/03/2024 8:55 AM [facility] NRBC 0.0 <1.0 % LAB HEMETOLOGY METHOD 09/03/2024 8:55 AM [facility] NRBC Absolute 0.00 <0.10 K/mcL LAB HEMETOLOGY METHOD 09/03/2024 8:55 AM [facility] Neutrophils Relative 48.8 % LAB HEMETOLOGY METHOD 09/03/2024 8:55 AM [facility] Lymphocytes Relative [...] LAB HEMETOLOGY METHOD 09/03/2024 8:55 AM EDT [facility] Monocytes Absolute 0.61 0.20 - 1.00 K/[facility] LAB HEMETOLOGY METHOD 09/03/2024 8:55 AM EDT [facility] Eosinophils Absolute 0.31 0.00 - 0.50 K/[facility] LAB HEMETOLOGY METHOD 09/03/2024 8:55 AM EDT [facility] Basophils Absolute 0.02 0.00 - 0.20 K/[facility] LAB HEMETOLOGY METHOD 09/03/2024 8:55 AM EDT [facility] Immature Granulocytes Absolute 0.02 0.00 - 0.03 K/[facility] LAB HEMETOLOGY METHOD 09/03/2024 8:55 AM EDT [facility] Blood Venous blood specimen / Unknown 09/03/2024 6:28 AM EDT 09/03/2024 8:22 AM EDT us Jeramie Schwartz MD LAB BLOOD ORDERABLES Final Resul t Performing Organization Address [facility]/ZIP Mn de Phone Number [facility] [address] [place] [address], * Vitamin D 25 hydroxy (09/03/2024 6:28 AM EDT) Vit D, 25-Hydroxy 57.0 30.0 - 80.0 ng/mL LAB CHEMISTRY METHOD 09/03/2024 10:39 AM EDT [facility] Blood Venous blood specimen / Unknown 09/03/2024 6:28 AM EDT 09/03/2024 8:22 AM EDT us Jeramie Schwartz MD LAB BLOOD ORDERABLES Final Resul t Performing Organization Address City/[facility]/ZIP Co de Phone Number [facility] [address] [place] [address], [place] [phone] * Prostate specific antigen screen (09/03/2024 6:28 AM EDT) Pathologist [facility] PSA 0.49 0.00 - 4.00 ng/mL LAB CHEMISTRY METHOD 09/03/2024 10:39 AM EDT [facility] Blood Venous blood specimen / Unknown 09/03/2024 6:28 AM EDT 09/03/2024 8:22 AM EDT Narrative [facility] - 09/03/2024 10:39 AM EDT The [employer] Chemiluminescent Immunoassay is used. Results obtained with different assay methods or kits cannot be used interchangeably. Results cannot be interpreted as absolute evidence of the presence or absence of malignant disease. us Jeramie Schwartz MD LAB BLOOD ORDERABLES Final Resul t Performing Organization Address City/[facility]/ZIP Co de Phone Number [facility] [address] [place] [address], [place] [phone] * Hemoglobin A1c (09/03/2024 6:28 AM EDT) [facility] Hemoglobin A1C 5.4 <6.5 % LAB CHEMISTRY METHOD 09/03/2024 10:38 AM EDT [facility] Mean Bld Glu Estim. 108 mg/dL LAB CHEMISTRY METHOD 09/03/2024 10:38 AM EDT [facility] Blood Venous blood specimen / Unknown 09/03/2024 6:28 AM EDT 09/03/2024 8:22 AM EDT us Jeramie Schwartz MD LAB BLOOD ORDERABLES Final Resul t Performing Organization Address City/[facility]/ZIP Co de Phone Number [facility] [address] [place] [address], [place] [phone] * (ABNORMAL) Comprehensive metabolic panel (09/03/2024 6:28 AM EDT) [facility] Signature Sodium 144 133 - 145 mmol/L LAB CHEMISTRY METHOD 09/03/2024 9:53 AM [facility] Potassium 4.4 3.5 - 5.5 mmol/L LAB CHEMISTRY METHOD 09/03/2024 9:53 AM [facility] Chloride 111(H) 96 - 110 mmol/L LAB CHEMISTRY METHOD 09/03/2024 9:53 AM [facility] CO2 26 21 - 32 mmol/L LAB CHEMISTRY METHOD 09/03/2024 9:53 AM [facility] Anion Gap 7 3 - 11 LAB CHEMISTRY METHOD 09/03/2024 9:53 AM [facility] Glucose 75 70 - [...] [facility] Comment:Calculation based on the [...] LAB CHEMISTRY METHOD 09/03/2024 9:53 AM EDT [facility] Total Protein 6.9 6.0 - 8.0 g/dL LAB CHEMISTRY METHOD 09/03/2024 9:53 AM EDT [facility] Albumin 3.1(L) 3.2 - 5.0 g/dL LAB CHEMISTRY METHOD 09/03/2024 9:53 AM EDT [facility] Total Bilirubin 0.4 0.0 - 1.4 mg/dL LAB CHEMISTRY METHOD 09/03/2024 9:53 AM EDT [facility] Blood Venous blood specimen / Unknown 09/03/2024 6:28 AM EDT 09/03/2024 8:22 AM EDT us Jeramie Schwartz MD LAB BLOOD ORDERABLES Final Resul t [facility] [address] [place] [address], documented in this encounter Visit Diagnoses Diagnosis 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 unspecified duration, sequela ([facility] V24) Benign prostatic hyperplasia without lower urinary tract symptoms Type 2 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, left eye (CMS/[facility] V24, [facility] V28) Vitamin D deficiency, unspecified documented in this encounter Care Teams Cane Weigher Helper Relationship Specialty Start Date End Date Jeramie Schwartz MD [address] [place] [address] Dr [address] [place] PCP - General Internal Medicine 06/02/24 documented as of this encounter
--- OUTSIDE RECORDS SUMMARY | 2025-01-29 12:29 | XMS_ITS | Encounter Summary ---
Author Organization [facility] Address [address] [place] [address] Care Team Providers Care Title Attorney Name Role Phone Jeramie Schwartz MD Primary Care Provider [phone] Encounter Details Date Type Department Care Team (Late st Contact Info) Description 09/24/2024 Lab Requisition [facility] - Main Lab [address] [facility] [place] [address] Jreamie Schwartz MD [address] [place] [address] Dr [address] [place] 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 unspecified duration, sequela (CMS/HCC V24); Other longterm (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 Social History [...] unspecified duration, sequela (CMS/HCC V24) Other terminal superintendent (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 CBC AND DIFFERENTIAL Routine 09/24/2024 6:30 AM EDT 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 unspecified duration, sequela (CMS/HCC V24) Other terminal superintendent (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 documented in this encounter Results * (ABNORMAL) CBC auto differential (09/24/2024 6:30 AM EDT) WBC 4.3(L) 4.8 - 10.8 K/[facility] LAB HEMETOLOGY METHOD 09/24/2024 8:50 AM [facility] RBC 4.40(L) 4.50 - 5.50 M/mcL LAB HEMETOLOGY METHOD 09/24/2024 8:50 AM [facility] Hemoglobin 11.5(L) 13.5 - 17.5 g/dL LAB HEMETOLOGY METHOD 09/24/2024 8:50 AM [facility] Hematocrit 36.4(L) 42.0 - 54.0 % LAB HEMETOLOGY METHOD 09/24/2024 8:50 AM [facility] MCV 83.1 79.0 - 98.0 FL LAB HEMETOLOGY METHOD 09/24/2024 8:50 AM [facility] MCH 26.3(L) 27.0 - 32.0 pcg LAB HEMETOLOGY METHOD 09/24/2024 8:50 AM [facility] MCHC 31.6(L) 32.0 - 37.0 g/dL LAB HEMETOLOGY METHOD 09/24/2024 8:50 AM [facility] RDW 16.6(H) 11.0 - 15.0 % LAB HEMETOLOGY METHOD 09/24/2024 8:50 AM [facility] Platelets 218 130 - 400 K/mcL LAB HEMETOLOGY METHOD 09/24/2024 8:50 AM [facility] MPV 10.7 7.0 - 11.0 FL LAB HEMETOLOGY METHOD 09/24/2024 8:50 AM [facility] NRBC 0.0 <1.0 % LAB HEMETOLOGY METHOD 09/24/2024 8:50 AM [facility] NRBC Absolute 0.00 <0.10 K/mcL LAB HEMETOLOGY METHOD 09/24/2024 8:50 AM [facility] Neutrophils Relative 63.4 % LAB HEMETOLOGY METHOD 09/24/2024 8:50 AM [facility] Lymphocytes Relative 18.7 % LAB HEMETOLOGY METHOD 09/24/2024 8:50 AM [facility] Monocytes Relative 13.8 % LAB HEMETOLOGY METHOD 09/24/2024 8:50 AM [facility] Eosinophils Relative 3.7 % LAB HEMETOLOGY METHOD 09/24/2024 8:50 AM [facility] Basophils Relative 0.2 % LAB HEMETOLOGY METHOD 09/24/2024 8:50 AM [facility] Immature Granulocytes Relative 0.2 % LAB HEMETOLOGY METHOD 09/24/2024 8:50 AM [facility] Neutrophils Absolute 2.75 1.50 - 7.00 K/mcL LAB HEMETOLOGY METHOD 09/24/2024 8:50 AM [facility] Lymphocytes Absolute 0.81(L) 1.00 - 5.00 K/mcL LAB HEMETOLOGY METHOD 09/24/2024 8:50 AM [facility] Monocytes Absolute 0.60 0.20 - 1.00 K/mcL LAB HEMETOLOGY METHOD 09/24/2024 8:50 AM [facility] Eosinophils Absolute 0.16 0.00 - 0.50 K/mcL LAB HEMETOLOGY METHOD 09/24/2024 8:50 AM [facility] Basophils Absolute 0.01 0.00 - 0.20 K/mcL LAB HEMETOLOGY METHOD 09/24/2024 8:50 AM [facility] Immature Granulocytes Absolute 0.01 0.00 - 0.03 K/mcL LAB HEMETOLOGY METHOD 09/24/2024 8:50 AM [facility] Blood Venous blood specimen / Unknown 09/24/2024 6:30 AM EDT 09/24/2024 7:21 AM EDT Jeramie Schwartz MD LAB BLOOD ORDERABLES Final Resul t [facility] ([facility]) [facility] [address] [place] [address], documented in this encounter Visit Diagnoses Diagnosis 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 unspecified duration, sequela (CMS/HCC V24) Other longterm (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 documented in this encounter Care Teams Title Attorney Relationship Specialty Start Date End Date Jeramie Schwartz MD [address] [place] [address] Dr [address] [place], [place] PCP - General Internal Medicine 06/02/24 documented as of this encounter
--- OUTSIDE RECORDS SUMMARY | 2025-01-29 12:29 | XMS_ITS | Encounter Summary ---
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 Social History Tobacco Use [...] PREGABALIN Routine 09/22/2024 6:35 AM EDT Other television reporter (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 documented in this encounter [...] 3:05 PM EDT Performed at: 01 - [employer] [address] [place] [id number] [employer] Cut[employer] Press Feeder: Michelle Jimenez [facility], Phone: [phone] us Jeramie Schwartz MD LAB BLOOD ORDERABLES Final Resul t [facility] documented in this encounter Visit Diagnoses Diagnosis 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
--- OUTSIDE RECORDS SUMMARY | 2025-01-29 12:29 | XMS_ITS | Encounter Summary ---
Author Organization [facility]rika [facility] Address [address] [place] [address] Care Team Providers Care Wordpress Developer Name Role Phone Jeramie Schwartz MD Primary Care Provider [phone] Encounter Details Date Type Department Care Team (Late st Contact Info) Description 03/26/2024 Lab Requisition [facility] - Main Lab [address] [place] [address] Jeramie Schwartz MD [address] [place] [address] Dr [address] [place], [place] Diffuse traumatic brain injury with loss [...] AM EST) WBC 3.0(L) 4.8 - 10.8 K/[facility] LAB HEMETOLOGY METHOD 03/26/2024 7:46 AM EST [facility] LAB RBC 3.80(L) 4.50 - 5.50 M/mcL LAB HEMETOLOGY METHOD 03/26/2024 7:46 AM [facility] LAB Hemoglobin 9.8(L) 13.5 - 17.5 g/dL LAB HEMETOLOGY METHOD 03/26/2024 7:46 AM [facility] LAB Hematocrit 31.5(L) 42.0 - 54.0 % LAB HEMETOLOGY METHOD 03/26/2024 7:46 AM [facility] LAB MCV 83.8 79.0 - 98.0 FL LAB HEMETOLOGY METHOD 03/26/2024 7:46 AM [facility] LAB MCH 26.1(L) 27.0 - 32.0 pcg LAB HEMETOLOGY METHOD 03/26/2024 7:46 AM [facility] LAB MCHC 31.1(L) 32.0 - 37.0 g/dL LAB HEMETOLOGY METHOD 03/26/2024 7:46 AM [facility] LAB RDW 15.9(H) 11.0 - 15.0 % LAB HEMETOLOGY METHOD 03/26/2024 7:46 AM [facility] LAB Platelets 263 130 - 400 K/mcL LAB HEMETOLOGY METHOD 03/26/2024 7:46 AM [facility] LAB MPV 9.7 7.0 - 11.0 FL LAB HEMETOLOGY METHOD 03/26/2024 7:46 AM [facility] LAB NRBC 0.0 <1.0 % LAB HEMETOLOGY METHOD 03/26/2024 7:46 AM [facility] LAB NRBC Absolute 0.00 <0.10 K/mcL LAB HEMETOLOGY METHOD 03/26/2024 7:46 AM [facility] LAB Neutrophils Relative 47.8 % LAB HEMETOLOGY METHOD 03/26/2024 7:46 AM [facility] LAB Lymphocytes Relative 26.7 % LAB HEMETOLOGY METHOD 03/26/2024 7:46 AM [facility] LAB Monocytes Relative 14.9 % LAB HEMETOLOGY METHOD 03/26/2024 7:46 AM [facility] LAB Eosinophils Relative 9.6 % LAB HEMETOLOGY METHOD 03/26/2024 7:46 AM [facility] LAB Basophils Relative 0.7 % LAB HEMETOLOGY METHOD 03/26/2024 7:46 AM [facility] LAB Immature Granulocytes Relative 0.3 % LAB HEMETOLOGY METHOD 03/26/2024 7:46 AM [facility] LAB Neutrophils Absolute 1.45(L) 1.50 - 7.00 K/mcL LAB HEMETOLOGY METHOD 03/26/2024 7:46 AM [facility] LAB Lymphocytes Absolute 0.81(L) 1.00 - 5.00 K/mcL LAB HEMETOLOGY METHOD 03/26/2024 7:46 AM [facility] LAB Monocytes Absolute 0.45 0.20 - 1.00 K/mcL LAB HEMETOLOGY METHOD 03/26/2024 7:46 AM [facility] LAB Eosinophils Absolute 0.29 0.00 - 0.50 K/mcL LAB HEMETOLOGY METHOD 03/26/2024 7:46 AM [facility] LAB Basophils Absolute 0.02 0.00 - 0.20 K/mcL LAB HEMETOLOGY METHOD 03/26/2024 7:46 AM [facility] LAB Immature Granulocytes Absolute 0.01 0.00 - 0.03 K/mcL LAB HEMETOLOGY METHOD 03/26/2024 7:46 AM [facility] LAB Blood Venous blood specimen / Unknown 03/26/2024 6:55 AM EST 03/26/2024 7:35 AM EST us Jeramie Schwartz MD LAB BLOOD ORDERABLES Final Resul t [facility] [address] [place] [address], documented in this encounter Visit Diagnoses Diagnosis 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 unspecified duration, sequela (CMS/HCC V24) documented in this encounter Care Teams Wordpress Developer Relationship Specialty Start Date End Date Jeramie Schwartz MD [address] [place] [address] Dr [address] [place] PCP - General Internal Medicine 06/02/24 documented as of this encounter
--- OUTSIDE RECORDS SUMMARY | 2025-01-29 12:29 | XMS_ITS | Encounter Summary ---
Author Organization [facility] Address [address] [place] [address] Care Team Providers Care Admin Assistant Name Role Phone Jeramie Schwartz MD Primary Care Provider [phone] Encounter Details Date Type Department Care Team (Late st Contact Info) Description 03/11/2024 Lab Requisition [facility] - Main Lab [address] [place] [address] Jeramie Schwartz MD [address] [place] [address] Dr [address] [place], [place] Diffuse traumatic brain injury with loss [...] AM EST) WBC 3.2(L) 4.8 - 10.8 K/[facility] LAB HEMETOLOGY METHOD 03/11/2024 6:59 AM EST [facility] RBC 4.10(L) 4.50 - 5.50 M/mcL LAB HEMETOLOGY METHOD 03/11/2024 6:59 AM [facility] LAB Hemoglobin 10.5(L) 13.5 - 17.5 g/dL LAB HEMETOLOGY METHOD 03/11/2024 6:59 AM [facility] LAB Hematocrit 34.8(L) 42.0 - 54.0 % LAB HEMETOLOGY METHOD 03/11/2024 6:59 AM [facility] LAB MCV 85.7 79.0 - 98.0 FL LAB HEMETOLOGY METHOD 03/11/2024 6:59 AM [facility] LAB MCH 25.9(L) 27.0 - 32.0 pcg LAB HEMETOLOGY METHOD 03/11/2024 6:59 AM [facility] LAB MCHC 30.2(L) 32.0 - 37.0 g/dL LAB HEMETOLOGY METHOD 03/11/2024 6:59 AM [facility] LAB RDW 16.6(H) 11.0 - 15.0 % LAB HEMETOLOGY METHOD 03/11/2024 6:59 AM [facility] LAB Platelets 287 130 - 400 K/mcL LAB HEMETOLOGY METHOD 03/11/2024 6:59 AM [facility] LAB MPV 11.1(H) 7.0 - 11.0 FL LAB HEMETOLOGY METHOD 03/11/2024 6:59 AM [facility] LAB NRBC 0.0 <1.0 % LAB HEMETOLOGY METHOD 03/11/2024 6:59 AM [facility] LAB NRBC Absolute 0.00 <0.10 K/mcL LAB HEMETOLOGY METHOD 03/11/2024 6:59 AM [facility] LAB Neutrophils Relative 38.2 % LAB HEMETOLOGY METHOD 03/11/2024 6:59 AM [facility] LAB Lymphocytes Relative 32.8 % LAB HEMETOLOGY METHOD 03/11/2024 6:59 AM [facility] LAB Monocytes Relative 17.8 % LAB HEMETOLOGY METHOD 03/11/2024 6:59 AM [facility] LAB Eosinophils Relative 10.3 % LAB HEMETOLOGY METHOD 03/11/2024 6:59 AM [facility] LAB Basophils Relative 0.6 % LAB HEMETOLOGY METHOD 03/11/2024 6:59 AM [facility] LAB Immature Granulocytes Relative 0.3 % LAB HEMETOLOGY METHOD 03/11/2024 6:59 AM [facility] LAB Neutrophils Absolute 1.22(L) 1.50 - 7.00 K/mcL LAB HEMETOLOGY METHOD 03/11/2024 6:59 AM [facility] LAB Lymphocytes Absolute 1.05 1.00 - 5.00 K/mcL LAB HEMETOLOGY METHOD 03/11/2024 6:59 AM [facility] LAB Monocytes Absolute 0.57 0.20 - 1.00 K/mcL LAB HEMETOLOGY METHOD 03/11/2024 6:59 AM [facility] LAB Eosinophils Absolute 0.33 0.00 - 0.50 K/mcL LAB HEMETOLOGY METHOD 03/11/2024 6:59 AM [facility] LAB Basophils Absolute 0.02 0.00 - 0.20 K/mcL LAB HEMETOLOGY METHOD 03/11/2024 6:59 AM [facility] LAB Immature Granulocytes Absolute 0.01 0.00 - 0.03 K/mcL LAB HEMETOLOGY METHOD 03/11/2024 6:59 AM [facility] LAB Blood Venous blood specimen / Unknown 03/11/2024 4:55 AM EST 03/11/2024 6:08 AM EST us Jeramie Schwartz MD LAB BLOOD ORDERABLES Final Resul t [facility] [address] [place] [address], documented in this encounter Visit Diagnoses Diagnosis 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 unspecified duration, sequela (CMS/HCC V24) documented in this encounter Care Teams Admin Assistant Relationship Specialty Start Date End Date Jeramie Schwartz MD [address] [place] [address] Dr [address] [place] PCP - General Internal Medicine 06/02/24 documented as of this encounter
--- OUTSIDE RECORDS SUMMARY | 2025-01-29 12:29 | XMS_ITS | Encounter Summary ---
Author Organization Erika [facility] Address [address] [place] [address] Care Team Providers Care Mobility Engineer Name Role Phone Jeramie Schwartz MD Primary Care Provider [phone] Encounter Details Date Type Department Care Team (Late st Contact Info) Description 11/13/2024 Lab Requisition [facility] - Main Lab [address] [place] [address] Jeramie Schwartz MD [address] [place] [address] Dr [address] [place], [place] Other fecal abnormalities Social History Tobacco [...] LAB HEMETOLOGY METHOD 11/13/2024 7:38 AM EDT [facility] RBC 5.10 4.50 - 5.50 M/mcL LAB HEMETOLOGY METHOD 11/13/2024 7:38 AM EDT [facility] Hemoglobin 13.0(L) 13.5 - 17.5 g/dL LAB HEMETOLOGY METHOD 11/13/2024 7:38 AM [facility] LAB Hematocrit 41.2(L) 42.0 - 54.0 % LAB HEMETOLOGY METHOD 11/13/2024 7:38 AM [facility] LAB MCV 81.3 79.0 - 98.0 FL LAB HEMETOLOGY METHOD 11/13/2024 7:38 AM [facility] LAB MCH 25.6(L) 27.0 - 32.0 pcg LAB HEMETOLOGY METHOD 11/13/2024 7:38 AM [facility] LAB MCHC 31.6(L) 32.0 - 37.0 g/dL LAB HEMETOLOGY METHOD 11/13/2024 7:38 AM [facility] LAB RDW 17.0(H) 11.0 - 15.0 % LAB HEMETOLOGY METHOD 11/13/2024 7:38 AM [facility] LAB Platelets 148 130 - 400 K/mcL LAB HEMETOLOGY METHOD 11/13/2024 7:38 AM [facility] MPV LAB HEMETOLOGY METHOD 11/13/2024 7:38 AM [facility] LAB Comment:Not Measured NRBC 0.0 <1.0 % LAB HEMETOLOGY METHOD 11/13/2024 7:38 AM [facility] NRBC Absolute 0.00 <0.10 K/mcL LAB HEMETOLOGY METHOD 11/13/2024 7:38 AM [facility] Neutrophils Relative 53.8 % LAB HEMETOLOGY METHOD 11/13/2024 7:38 AM [facility] Lymphocytes Relative 32.9 % LAB HEMETOLOGY METHOD 11/13/2024 7:38 AM [facility] Monocytes Relative 10.1 % LAB HEMETOLOGY METHOD 11/13/2024 7:38 AM [facility] Eosinophils Relative 2.6 % LAB HEMETOLOGY METHOD 11/13/2024 7:38 AM EDT [facility] Basophils Relative 0.6 % LAB HEMETOLOGY METHOD 11/13/2024 7:38 AM [facility] Immature Granulocytes Relative 0.0 % LAB HEMETOLOGY METHOD 11/13/2024 7:38 AM EDT [facility] Neutrophils Absolute 1.87 1.50 - 7.00 K/mcL LAB HEMETOLOGY METHOD 11/13/2024 7:38 AM EDT [facility] Lymphocytes Absolute 1.14 1.00 - 5.00 K/mcL LAB HEMETOLOGY METHOD [facility] Monocytes Absolute 0.35 0.20 - 1.00 K/mcL LAB HEMETOLOGY METHOD 11/13/2024 7:38 AM EDT [facility] Eosinophils Absolute 0.09 0.00 - 0.50 K/mcL LAB HEMETOLOGY METHOD 11/13/2024 7:38 AM EDT [facility] Basophils Absolute 0.02 0.00 - 0.20 K/mcL LAB HEMETOLOGY METHOD [facility] Immature Granulocytes Absolute 0.00 0.00 - 0.03 K/mcL LAB HEMETOLOGY METHOD 11/13/2024 7:38 AM EDT [facility] Blood Venous blood specimen / Unknown 11/13/2024 6:45 AM EDT 11/13/2024 7:20 AM EDT us Jeramie Schwartz MD LAB BLOOD ORDERABLES Final Resul t [facility] [address] [place] [address], documented in this encounter Visit Diagnoses Diagnosis Other fecal abnormalities documented in this encounter Care Teams Mobility Engineer Relationship Specialty Start Date End Date Jeramie Schwartz MD [address] [place] [address] Dr [address] [place] Chaudhry PCP - General Internal Medicine 06/02/24 documented as of this encounter
--- OUTSIDE RECORDS SUMMARY | 2025-01-29 12:29 | XMS_ITS | Encounter Summary ---
Author Organization E[facility] Address [address] [place] [address] Care Team Providers Care Outside Solar Sales Consultant Name Role Phone Jeramie Schwartz MD Primary Care Provider [phone] Encounter Details Date Type Department Care Team (Late st Contact Info) Description 09/09/2024 Lab Requisition [facility] - Main Lab [address] [facility] [place] [address] Jeramie Schwartz MD [address] [place] [address] [address] [place] Diffuse traumatic brain injury with loss [...] K/mcL LAB HEMETOLOGY METHOD 09/09/2024 12:29 PM [facility] LAB RBC 4.20(L) 4.50 - 5.50 M/mcL LAB HEMETOLOGY METHOD 09/09/2024 12:29 PM [facility] LAB Hemoglobin 11.0(L) 13.5 - 17.5 g/dL LAB HEMETOLOGY METHOD 09/09/2024 12:29 PM [facility] LAB Hematocrit 35.2(L) 42.0 - 54.0 % LAB HEMETOLOGY METHOD 09/09/2024 12:29 PM [facility] LAB MCV 84.4 79.0 - 98.0 FL LAB HEMETOLOGY METHOD 09/09/2024 12:29 PM [facility] LAB MCH 26.4(L) 27.0 - 32.0 pcg LAB HEMETOLOGY METHOD 09/09/2024 12:29 PM [facility] LAB MCHC 31.3(L) 32.0 - 37.0 g/dL LAB HEMETOLOGY METHOD 09/09/2024 12:29 PM [facility] LAB RDW 17.3(H) 11.0 - 15.0 % LAB HEMETOLOGY METHOD 09/09/2024 12:29 PM [facility] LAB Platelets 193 130 - 400 K/mcL LAB HEMETOLOGY METHOD 09/09/2024 12:29 PM [facility] LAB MPV 12.4(H) 7.0 - 11.0 FL LAB HEMETOLOGY METHOD 09/09/2024 12:29 PM [facility] LAB NRBC 0.0 <1.0 % LAB HEMETOLOGY METHOD 09/09/2024 12:29 PM [facility] LAB NRBC Absolute 0.00 <0.10 K/[facility] LAB HEMETOLOGY METHOD 09/09/2024 12:29 PM [facility] Neutrophils Relative 66.4 % LAB HEMETOLOGY METHOD 09/09/2024 12:29 PM [facility] Lymphocytes Relative 15.9 % LAB HEMETOLOGY METHOD 09/09/2024 12:29 PM [facility] Monocytes Relative 12.7 % LAB HEMETOLOGY METHOD 09/09/2024 12:29 PM [facility] Eosinophils Relative 4.2 % LAB HEMETOLOGY METHOD 09/09/2024 12:29 PM [facility] Basophils Relative 0.5 % LAB HEMETOLOGY METHOD 09/09/2024 12:29 PM [facility] Immature Granulocytes Relative 0.3 % LAB HEMETOLOGY METHOD 09/09/2024 12:29 PM [facility] Neutrophils Absolute 2.51 1.50 - 7.00 K/mcL LAB HEMETOLOGY METHOD 09/09/2024 12:29 PM [facility] Lymphocytes Absolute 0.60(L) 1.00 - 5.00 K/mcL LAB HEMETOLOGY METHOD 09/09/2024 12:29 PM [facility] Monocytes Absolute 0.48 0.20 - 1.00 K/mcL LAB HEMETOLOGY METHOD 09/09/2024 12:29 PM [facility] Eosinophils Absolute 0.16 0.00 - 0.50 K/mcL LAB HEMETOLOGY METHOD 09/09/2024 12:29 PM [facility] Basophils Absolute 0.02 0.00 - 0.20 K/mcL LAB HEMETOLOGY METHOD 09/09/2024 12:29 PM [facility] Immature Granulocytes Absolute 0.01 0.00 - 0.03 K/mcL LAB HEMETOLOGY METHOD 09/09/2024 12:29 PM [facility] Blood Venous blood specimen / Unknown 09/09/2024 6:15 AM EDT 09/09/2024 7:18 AM EDT Jeramie Schwartz MD LAB BLOOD ORDERABLES Final Resul t [facility] [address] [place] [address], documented in this encounter Visit Diagnoses Diagnosis 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 unspecified duration, sequela (CMS/HCC V24) Type 2 diabetes mellitus without complications (CMS/HCC V24, CMS/HCC V28) documented in this encounter Care Teams Outside Solar Sales Consultant Relationship Specialty Start Date End Date Jeramie Schwartz MD [address] [place] [address] Dr [address] [place] PCP - General Internal Medicine 06/02/24 documented as of this encounter
--- OUTSIDE RECORDS SUMMARY | 2025-01-29 12:29 | XMS_ITS | Encounter Summary ---
[facility] Address [address] [place] [address] Care Team Providers Care Body Care Manager Name Role Phone Jeramie Schwartz MD Primary Care Provider [phone] Encounter Details Date Type Department Care Team (Late st Contact Info) Description 09/11/2024 Lab Requisition [facility] - Main Lab 299 [facility] [place] [address] Jearmie Schwartz MD [address] [place] [address] [address] [place] Other emt intermediate (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 Social History Tobacco Use [...] Routine 09/11/2024 6 :20 AM EDT Other emt intermediate (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 documented in this [...] developed and the performance characteristics determined by [facility]. This confirmation testing has not been cleared or approved by the FDA. The laboratory is regulated under CLIA as qualified to perform high-complexity testing. This test is used for patient testing purposes. It should not be regarded as investigational or for research. Test performed at [facility], [address], [place], [place] [id number] Marcy Abarca MD, PhD - Drugless Physician Blood Venous blood specimen / Unknown 09/11/2024 6:20 AM EDT 09/11/2024 6:55 AM EDT us Jeramie Schwartz MD LAB BLOOD ORDERABLES Final Resul t [facility] [address] [place] [address] documented in this encounter Visit Diagnoses Diagnosis Other alf (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 documented in this encounter Care Teams Body Care Manager Relationship Specialty Start Date End Date Jeramie Schwartz MD [address] [place] [address] [address] [place] PCP - General Internal Medicine 06/02/24 documented as of this encounter
--- OUTSIDE RECORDS SUMMARY | 2025-01-29 12:29 | XMS_ITS | Encounter Summary ---
[facility] Address [address] [place] [address] Care Team Providers Care Call Center Support Consultant Name Role Phone Jeramie Schwartz MD Primary Care Provider [phone] Encounter Details Date Type Department Care Team (Late st Contact Info) Description 09/07/2024 Lab Requisition [facility] - Main Lab 299 [facility] [place] [address] Jeramie Schwartz MD [address] [place] [address] [address] [place] Other press tender long goods (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 Social History Tobacco Use [...] PREGABALIN Routine 09/07/2024 5:25 AM EDT Other press tender long goods (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 documented in this encounter [...] 11:05 PM EDT Performed at: 01 - [employer] [address] [place] [id number] Psychological Assistant: Michelle Jimenez [facility], Phone: [phone] us Jeramie Schwartz MD LAB BLOOD ORDERABLES Final Resul t [facility] documented in this encounter Visit Diagnoses Diagnosis Other usp (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 documented in this encounter Care Teams Call Center Support Consultant Relationship Specialty Start Date End Date Jeramie Schwartz MD [address] [place] [address] Dr [address] [place] Chaudhry PCP - General Internal Medicine 06/02/24 documented as of this encounter
--- OUTSIDE RECORDS SUMMARY | 2025-01-29 12:29 | XMS_ITS | Clinical Summary ---
Author Organization [facility] Address [address] [place] [address] Phone Care Team Providers Care Talent Acquisition Partner Name Role Phone Jeramie Schwartz MD Primary Care Provider [phone] Encounters Date Type Department Care Team Description 01/14/2025 Lab Requisition [facility] Lab [address] [place] [phone] Jeramie Schwartz MD Type 2 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, left eye (CMS/HCC V24, CMS/HCC V28) 12/14/2024 Lab Requisition [facility] Lab [address] [place] [phone] Jeramie Schwartz MD Other fecal abnormalities 11/26/2024 Lab Requisition [facility] Lab [address] [place] [phone] Jeramie Schwartz MD Feeling of incomplete bladder emptying 11/13/2024 Lab Requisition [facility] Lab [address] [place] [address] Jeramie Schwartz MD Other fecal abnormalities from Last 3 Months Social History Tobacco [...] 2025 Diabetes: Blood Sugar Control Test (HGBA1C) 07/14/2025 01/14/2025, 10/14/2024, 09/03/2024, Additional history exists Colorectal [...] 11/13/2024 6:45 AM EDT Other fecal abnormalities OCCULT BLOOD STOOL, GUAIAC Routine 09/04/2024 10:45 AM EDT Melena from Last 3 Months or Most Recently Relevant to Health Maintenance Results * (ABNORMAL) CBC auto differential (01/14/2025 6:33 AM EDT) Only the most recent of4 resultswithin the time period is included. WBC 5.6 4.8 - 10.8 K/mcL LAB HEMETOLOGY METHOD 01/14/2025 8:09 AM [facility] RBC 5.40 4.50 - 5.50 M/mcL LAB HEMETOLOGY METHOD 01/14/2025 8:09 AM [facility] LAB Hemoglobin 13.8 13.5 - 17.5 g/dL LAB HEMETOLOGY METHOD 01/14/2025 8:09 AM [facility] LAB Hematocrit 44.6 42.0 - 54.0 % LAB HEMETOLOGY METHOD 01/14/2025 8:09 AM [facility] LAB MCV 82.4 79.0 - 98.0 FL LAB HEMETOLOGY METHOD 01/14/2025 8:09 AM [facility] LAB MCH 25.5(L) 27.0 - 32.0 pcg LAB HEMETOLOGY METHOD 01/14/2025 8:09 AM [facility] LAB MCHC 30.9(L) 32.0 - 37.0 g/dL LAB HEMETOLOGY METHOD 01/14/2025 8:09 AM [facility] LAB RDW 17.2(H) 11.0 - 15.0 % LAB HEMETOLOGY METHOD 01/14/2025 8:09 AM [facility] LAB Platelets 149 130 - 400 K/mcL LAB HEMETOLOGY METHOD 01/14/2025 8:09 AM [facility] LAB MPV LAB HEMETOLOGY METHOD 01/14/2025 8:09 AM [facility] LAB Comment:Not Measured NRBC 0.0 <1.0 % LAB HEMETOLOGY METHOD 01/14/2025 8:09 AM [facility] LAB NRBC Absolute 0.00 <0.10 K/mcL LAB HEMETOLOGY METHOD 01/14/2025 8:09 AM [facility] LAB Neutrophils Relative 82.4 % LAB HEMETOLOGY METHOD 01/14/2025 8:09 AM [facility] LAB Lymphocytes Relative 12.9 % LAB HEMETOLOGY METHOD 01/14/2025 8:09 AM [facility] Monocytes Relative 3.9 % LAB HEMETOLOGY METHOD 01/14/2025 8:09 AM [facility] Eosinophils Relative 0.2 % LAB HEMETOLOGY METHOD 01/14/2025 8:09 AM [facility] Basophils Relative 0.2 % LAB HEMETOLOGY METHOD 01/14/2025 8:09 AM [facility] Immature Granulocytes Relative 0.4 % LAB HEMETOLOGY METHOD 01/14/2025 8:09 AM [facility] LAB Neutrophils Absolute 4.62 1.50 - 7.00 K/mcL LAB HEMETOLOGY METHOD 01/14/2025 8:09 AM [facility] LAB Lymphocytes Absolute 0.72(L) 1.00 - 5.00 K/mcL LAB HEMETOLOGY METHOD 01/14/2025 8:09 AM [facility] Monocytes Absolute 0.22 0.20 - 1.00 K/mcL LAB HEMETOLOGY METHOD 01/14/2025 8:09 AM [facility] LAB Eosinophils Absolute 0.01 0.00 - 0.50 K/mcL LAB HEMETOLOGY METHOD 01/14/2025 8:09 AM EDT [facility] LAB Basophils Absolute 0.01 0.00 - 0.20 K/[facility] LAB HEMETOLOGY METHOD 01/14/2025 8:09 AM EDT [facility] LAB Immature Granulocytes Absolute 0.02 0.00 - 0.03 K/[facility] LAB HEMETOLOGY METHOD 01/14/2025 8:09 AM EDT [facility] LAB Blood Venous blood specimen / Unknown 01/14/2025 6:33 AM EDT 01/14/2025 7:58 AM EDT us Jeramie Schwartz MD LAB BLOOD ORDERABLES Final Resul t Performing Organization Address [facility]/ZIP Co de Phone Number [facility] LAB [address] [place] [address], [place] [phone] * Hemoglobin A1c (01/14/2025 6:33 AM EDT) Hemoglobin A1C 5.9 <6.5 % LAB CHEMISTRY METHOD 01/14/2025 11:10 AM EDT [facility] LAB Mean Bld Glu Estim. 123 mg/dL LAB CHEMISTRY METHOD 01/14/2025 11:10 AM EDT [facility] LAB Blood Venous blood specimen / Unknown 01/14/2025 6:33 AM EDT 01/14/2025 7:58 AM EDT us Jeramie Schwartz MD LAB BLOOD ORDERABLES Final Resul t Performing Organization Address City/[facility]/ZIP Co de Phone Number [facility] [address] [place] [address], [place] [phone] * (ABNORMAL) Manual differential (11/26/2024 6:20 AM EDT) Neutrophils % 58.0 % LAB HEMETOLOGY METHOD 11/26/2024 8:26 AM EDT [facility] LAB Lymphocytes % 24.0 % LAB HEMETOLOGY METHOD 11/26/2024 8:26 AM [facility] Reactive Lymphocyte 4.00 % LAB HEMETOLOGY METHOD 11/26/2024 8:26 AM [facility] Monocytes % 10.0 % LAB HEMETOLOGY METHOD 11/26/2024 8:26 AM [facility] Eosinophils % 2.0 % LAB HEMETOLOGY METHOD 11/26/2024 8:26 AM [facility] Basophils % 2.0 % LAB HEMETOLOGY METHOD 11/26/2024 8:26 AM [facility] Neutrophils Absolute Manual 1.33(L) 1.50 - 7.00 K/mcL LAB HEMETOLOGY METHOD 11/26/2024 8:26 AM [facility] LAB Lymphocytes Absolute 0.55(L) 1.00 - 5.00 K/mcL LAB HEMETOLOGY METHOD 11/26/2024 8:26 AM [facility] LAB Reactive Lymph Abs Manual 0.09(H) 0.00 - 0.00 lym LAB HEMETOLOGY METHOD 11/26/2024 8:26 AM [facility] Monocytes Absolute Manual 0.23 0.20 - 1.00 K/mcL LAB HEMETOLOGY METHOD 11/26/2024 8:26 AM [facility] Eosinophils Absolute Manual 0.05 0.00 - 0.50 K/mcL LAB HEMETOLOGY METHOD 11/26/2024 8:26 AM [facility] Basophils Absolute Manual 0.05 0.00 - 0.20 K/mcL LAB HEMETOLOGY METHOD 11/26/2024 8:26 AM [facility] LAB Blood Venous blood specimen / Unknown 11/26/2024 6:20 AM EDT 11/26/2024 7:28 AM EDT us Jeramie Schwartz MD LAB BLOOD ORDERABLES Final Resul t Performing Organization Address [facility] de Phone Number [facility] [address] [place] [address], * Pathology review, blood smear (11/26/2024 6:20 [...] correlation is recommended. 11/26/2024 9:40 AM EDT [facility] LAB Blood Venous blood specimen / Unknown 11/26/2024 6:20 AM EDT 11/26/2024 7:28 AM EDT us Jeramie Schwartz MD LAB BLOOD ORDERABLES Final Resul t Performing Organization Address [facility] Co de Phone Number [facility] [address] [place] [address], * Prostate specific antigen diagnostic (11/26/2024 6:20 AM EDT) PSA 0.64 0.00 - 4.00 ng/mL LAB CHEMISTRY METHOD 11/26/2024 10:50 AM EDT [facility] LAB Blood Venous blood specimen / Unknown 11/26/2024 6:20 AM EDT 11/26/2024 7:28 AM EDT Narrative [facility] - 11/26/2024 10:50 AM EDT The Siemens Advia Centaur Chemiluminescent Immunoassay is used. Results obtained with different assay methods or kits cannot be used interchangeably. Results cannot be interpreted as absolute evidence of the presence or absence of malignant disease. us Jeramie Schwartz MD LAB BLOOD ORDERABLES Final Resul t Performing Organization Address [facility] de Phone Number [facility] [address] [place] [address], [place] [phone] * Creatinine (11/26/2024 6:20 AM EDT) Creatinine 1.02 0.70 - 1.30 mg/dL LAB CHEMISTRY METHOD 11/26/2024 8:26 AM EDT [facility] LAB eGFR 80 >=60 mL/min/1. 73m2 LAB CHEMISTRY METHOD 11/26/2024 8:26 AM EDT [facility] LAB Comment:Calculation based on the Chronic Kidney Disease Epidemiology Collaboration (CKD-EPI) equation refit without adjustment for race. Blood Venous blood specimen / Unknown 11/26/2024 6:20 AM EDT 11/26/2024 7:28 AM EDT us Jeramie Schwartz MD LAB BLOOD ORDERABLES Final Resul t Performing Organization Address [facility] Co de Phone Number [facility] [address] [place] [address], [place] [phone] * BUN (11/26/2024 6:20 AM EDT) BUN 16 5 - 25 mg/dL LAB CHEMISTRY METHOD 11/26/2024 8:26 AM EDT [facility] Blood Venous blood specimen / Unknown 11/26/2024 6:20 AM EDT 11/26/2024 7:28 AM EDT us Jeramie Schwartz MD LAB BLOOD ORDERABLES Final Resul t Performing Organization Address City/[facility]/ZIP Co de Phone Number [facility] [address] [place] [address], [place] [phone] * (ABNORMAL) Occult blood stool, guaiac (09/04/2024 10:45 AM EDT) Occult Blood, Stool #1 Positive( A) Negative 09/04/2024 5:13 PM EDT [facility] Stool Rectum structure / Unknown 09/04/2024 10:45 AM EDT 09/04/2024 3:26 PM EDT us Jeramie Schwartz MD LAB BODY FLUIDS AND STOOLS ORDER VELMA Final Result Performing Organization Address [facility] Co de Phone Number [facility] [address] [place] [address], [place] [phone] from Last 3 Months or Most Recently Relevant to Health Maintenance Insurance MEDICARE [place]ICA[place] - [place] Member Subscriber Plan / Payer (Ef fective 2024-Present) Name:Silvio Amor Member ID:[id number] Relation to Subscriber:Self Name:Silvio Amor Subscriber ID:[id number] Payer ID:[id number] Group ID:Not on file Type:Not on file Address: [facility] [address] [id number] Care Teams Talent Acquisition Partner Relationship Specialty Start Date End Date Jeramie Schwartz MD [address] [place] [address] Dr [address] MARS Chaudhry PCP - General Internal Medicine 06/02/24
--- OUTSIDE RECORDS SUMMARY | 2025-01-29 12:29 | XMS_ITS | Encounter Summary ---
Author Organization E[facility] Address [address] [place] [address] Care Team Providers Care Order Processing Manager Name Role Phone Jeramie Schwartz MD Primary Care Provider [phone] Encounter Details Date Type Department Care Team (Late st Contact Info) Description 08/19/[address] 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 CBC AND DIFFERENTIAL Routine 08/19/2024 6:12 AM EDT 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 unspecified duration, sequela (CMS/HCC V24) 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 documented in this encounter Results * (ABNORMAL) CBC auto differential (08/19/2024 6:12 AM EDT) WBC 3.2(L) 4.8 - 10.8 K/mcL LAB HEMETOLOGY METHOD 08/19/2024 8:30 AM [facility] LAB RBC 4.30(L) 4.50 - 5.50 M/mcL LAB HEMETOLOGY METHOD 08/19/2024 8:30 AM [facility] LAB Hemoglobin 11.2(L) 13.5 - 17.5 g/dL LAB HEMETOLOGY METHOD 08/19/2024 8:30 AM [facility] LAB Hematocrit 35.9(L) 42.0 - 54.0 % LAB HEMETOLOGY METHOD 08/19/2024 8:30 AM [facility] LAB MCV 84.1 79.0 - 98.0 FL LAB HEMETOLOGY METHOD 08/19/2024 8:30 AM [facility] LAB MCH 26.2(L) 27.0 - 32.0 pcg LAB HEMETOLOGY METHOD 08/19/2024 8:30 AM [facility] LAB MCHC 31.2(L) 32.0 - 37.0 g/dL LAB HEMETOLOGY METHOD 08/19/2024 8:30 AM [facility] LAB RDW 17.1(H) 11.0 - 15.0 % LAB HEMETOLOGY METHOD 08/19/2024 8:30 AM [facility] LAB Platelets 284 130 - 400 K/mcL LAB HEMETOLOGY METHOD 08/19/2024 8:30 AM [facility] LAB MPV 12.1(H) 7.0 - 11.0 FL LAB HEMETOLOGY METHOD 08/19/2024 8:30 AM [facility] LAB NRBC 0.0 <1.0 % LAB HEMETOLOGY METHOD 08/19/2024 8:30 AM [facility] LAB NRBC Absolute 0.00 <0.10 K/mcL LAB HEMETOLOGY METHOD 08/19/2024 8:30 AM [facility] LAB Neutrophils Relative 52.3 % LAB HEMETOLOGY METHOD 08/19/2024 8:30 AM [facility] LAB Lymphocytes Relative 27.2 % LAB HEMETOLOGY METHOD 08/19/2024 8:30 AM [facility] LAB Monocytes Relative 13.3 % LAB HEMETOLOGY METHOD 08/19/2024 8:30 AM [facility] Eosinophils Relative 6.3 % LAB HEMETOLOGY METHOD 08/19/2024 8:30 AM [facility] Basophils Relative 0.6 % LAB HEMETOLOGY METHOD 08/19/2024 8:30 AM [facility] LAB Immature Granulocytes Relative 0.3 % LAB HEMETOLOGY METHOD 08/19/2024 8:30 AM [facility] LAB Neutrophils Absolute 1.65 1.50 - 7.00 K/mcL LAB HEMETOLOGY METHOD 08/19/2024 8:30 AM [facility] LAB Lymphocytes Absolute 0.86(L) 1.00 - 5.00 K/mcL LAB HEMETOLOGY METHOD 08/19/2024 8:30 AM [facility] LAB Monocytes Absolute 0.42 0.20 - 1.00 K/mcL LAB HEMETOLOGY METHOD 08/19/2024 8:30 AM [facility] LAB Eosinophils Absolute 0.20 0.00 - 0.50 K/mcL LAB HEMETOLOGY METHOD 08/19/2024 8:30 AM [facility] Basophils Absolute 0.02 0.00 - 0.20 K/mcL LAB HEMETOLOGY METHOD 08/19/2024 8:30 AM [facility] LAB Immature Granulocytes Absolute 0.01 0.00 - 0.03 K/mcL LAB HEMETOLOGY METHOD 08/19/2024 8:30 AM [facility] LAB Blood Venous blood specimen / Unknown 08/19/2024 6:12 AM EDT 08/19/2024 7:24 AM EDT us Jeramie Schwartz MD LAB BLOOD ORDERABLES Final Resul t [facility] [address] [place] [address], documented in this encounter Visit Diagnoses Diagnosis 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 unspecified duration, sequela (CMS/HCC V24) Other jail (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 documented in this encounter Care Teams Order Processing Manager Relationship Specialty Start Date End Date Jeramie Schwartz MD [address] [place] [address] Dr [address] [place], [place] PCP - General Internal Medicine 06/02/24 documented as of this encounter
--- OUTSIDE RECORDS SUMMARY | 2025-01-29 12:29 | XMS_ITS | Encounter Summary ---
Author Organization Erika [facility] Address [address] [place] [address] Care Team Providers Care Lens Assorter Name Role Phone Jeramie Schwartz MD Primary Care Provider Encounter Details Date Type Department Care Team (Late st Contact Info) Description 10/21/[address] [facility] Lab [address] [facility] [place] [address] Jeramie Schwartz MD [address] [place] [address] Dr [address] [place] Encounter for therapeutic drug level monitoring Social [...] K/mcL LAB HEMETOLOGY METHOD 10/21/2024 7:52 AM [facility] LAB RBC 4.80 4.50 - 5.50 M/mcL LAB HEMETOLOGY METHOD 10/21/2024 7:52 AM [facility] LAB Hemoglobin 12.5(L) 13.5 - 17.5 g/dL LAB HEMETOLOGY METHOD 10/21/2024 7:52 AM [facility] LAB Hematocrit 39.9(L) 42.0 - 54.0 % LAB HEMETOLOGY METHOD 10/21/2024 7:52 AM [facility] LAB MCV 82.4 79.0 - 98.0 FL LAB HEMETOLOGY METHOD 10/21/2024 7:52 AM [facility] LAB MCH 25.8(L) 27.0 - 32.0 pcg LAB HEMETOLOGY METHOD 10/21/2024 7:52 AM [facility] LAB MCHC 31.3(L) 32.0 - 37.0 g/dL LAB HEMETOLOGY METHOD 10/21/2024 7:52 AM [facility] LAB RDW 16.3(H) 11.0 - 15.0 % LAB HEMETOLOGY METHOD 10/21/2024 7:52 AM [facility] LAB Platelets 212 130 - 400 K/[facility] LAB HEMETOLOGY METHOD 10/21/2024 7:52 AM [facility] LAB MPV 11.9(H) 7.0 - 11.0 FL LAB HEMETOLOGY METHOD 10/21/2024 7:52 AM [facility] LAB NRBC 0.0 <1.0 % LAB HEMETOLOGY METHOD 10/21/2024 7:52 AM [facility] LAB NRBC Absolute 0.00 <0.10 K/[facility] LAB HEMETOLOGY METHOD 10/21/2024 7:52 AM [facility] LAB Neutrophils Relative 41.5 % LAB HEMETOLOGY METHOD 10/21/2024 7:52 AM [facility] Lymphocytes Relative 35.4 % LAB HEMETOLOGY METHOD 10/21/2024 7:52 AM [facility] Monocytes Relative 16.5 % LAB HEMETOLOGY METHOD 10/21/2024 7:52 AM [facility] Eosinophils Relative 5.4 % LAB HEMETOLOGY METHOD 10/21/2024 7:52 AM [facility] Basophils Relative 1.2 % LAB HEMETOLOGY METHOD 10/21/2024 7:52 AM [facility] Immature Granulocytes Relative 0.0 % LAB HEMETOLOGY METHOD 10/21/2024 7:52 AM [facility] Neutrophils Absolute 1.08(L) 1.50 - 7.00 K/mcL LAB HEMETOLOGY METHOD 10/21/2024 7:52 AM [facility] Lymphocytes Absolute 0.92(L) 1.00 - 5.00 K/mcL LAB HEMETOLOGY METHOD 10/21/2024 7:52 AM [facility] Monocytes Absolute 0.43 0.20 - 1.00 K/mcL LAB HEMETOLOGY METHOD 10/21/2024 7:52 AM [facility] Eosinophils Absolute 0.14 0.00 - 0.50 K/mcL LAB HEMETOLOGY METHOD 10/21/2024 7:52 AM [facility] Basophils Absolute 0.03 0.00 - 0.20 K/mcL LAB HEMETOLOGY METHOD 10/21/2024 7:52 AM [facility] Immature Granulocytes Absolute 0.00 0.00 - 0.03 K/mcL LAB HEMETOLOGY METHOD 10/21/2024 7:52 AM [facility] Blood Venous blood specimen / Unknown 10/21/2024 6:20 AM EDT 10/21/2024 7:33 AM EDT us Jeramie Schwartz MD LAB BLOOD ORDERABLES Final Resul t Performing Organization Address [facility] Co de Phone Number [facility] [address] [place] [address], * Pregabalin (10/21/2024 6:20 AM EDT) Pregabalin [...] - 10/23/2024 4:05 PM EDT Performed at: [facility] [employer] [address] [place] [phone] Infusion Rn: Michelle Jimenez [facility], Phone: [phone] us Jeramie Schwartz MD LAB BLOOD ORDERABLES Final Resul t Performing Organization Address [facility] Co de Phone Number [id number] * [...] the performance characteristics determined by [facility]. This confirmation testing has not been cleared or approved by the FDA. The laboratory is regulated under CLIA as qualified to perform high-complexity testing. This test is used for patient testing purposes. It should not be regarded as investigational or for research. Test performed at [facility], [address] , [place] [address] Marcy Abarca MD, PhD - Head Loft Worker Blood Venous blood specimen / Unknown 10/21/2024 6:20 AM EDT 10/21/2024 7:33 AM EDT us Jeramie Schwartz MD LAB BLOOD ORDERABLES Final Resul t [facility] [address] [place] [address] * (ABNORMAL) Comprehensive metabolic panel (10/21/2024 6:20 AM EDT) Sodium 141 133 - 145 mmol/L LAB CHEMISTRY METHOD 10/21/2024 8:24 AM [facility] Potassium 4.0 3.5 - 5.5 mmol/L LAB CHEMISTRY METHOD 10/21/2024 8:24 AM [facility] Chloride 107 96 - 110 mmol/L LAB CHEMISTRY METHOD 10/21/2024 8:24 AM [facility] CO2 30 21 - 32 mmol/L LAB CHEMISTRY METHOD 10/21/2024 8:24 AM [facility] Anion Gap 4 3 - 11 LAB CHEMISTRY METHOD 10/21/2024 8:24 AM [facility] Glucose 87 70 - 100 mg/dL LAB CHEMISTRY METHOD 10/21/2024 8:24 AM [facility] BUN 13 5 - 25 mg/dL LAB CHEMISTRY METHOD 10/21/2024 8:24 AM [facility] Creatinine 0.97 0.70 - 1.30 mg/dL LAB CHEMISTRY METHOD 10/21/2024 8:24 AM [facility] LAB eGFR 85 >=60 mL/min/1. 73m2 LAB CHEMISTRY METHOD 10/21/2024 8:24 AM [facility] Comment:Calculation based on the Chronic Kidney Disease Epidemiology Collaboration (CKD-EPI) equation refit without adjustment for race. BUN/Creatinine Ratio 13.4 LAB CHEMISTRY METHOD 10/21/2024 8:24 AM T [facility] Calcium 8.9 8.5 - 10.5 mg/dL LAB CHEMISTRY METHOD 10/21/2024 8:24 AM [facility] AST (SGOT) 13 10 - 42 unit/L LAB CHEMISTRY METHOD 10/21/2024 8:24 AM [facility] ALT (SGPT) 17 10 - 60 unit/L LAB CHEMISTRY METHOD 10/21/2024 8:24 AM [facility] Alkaline Phosphatase 94 42 - 121 unit/L LAB CHEMISTRY METHOD 10/21/2024 8:24 AM [facility] Total Protein 6.5 6.0 - 8.0 g/dL LAB CHEMISTRY METHOD 10/21/2024 8:24 AM [facility] Albumin 2.8(L) 3.2 - 5.0 g/dL LAB CHEMISTRY METHOD 10/21/2024 8:24 AM [facility] Total Bilirubin 0.3 0.0 - 1.4 mg/dL LAB CHEMISTRY METHOD 10/21/2024 8:24 AM [facility] Blood Venous blood specimen / Unknown 10/21/2024 6:20 AM EDT 10/21/2024 7:33 AM EDT us Jeramie Schwartz MD LAB BLOOD ORDERABLES Final Resul t [facility] [address] [place] [address], documented in this encounter Visit Diagnoses Diagnosis Encounter for therapeutic drug level monitoring documented in this encounter Care Teams Lens Assorter Relationship Specialty Start Date End Date Jeramie Schwartz MD [address] [facility] [address] MARS Chaudhry PCP - General Internal Medicine 06/02/24 documented as of this encounter
--- OUTSIDE RECORDS SUMMARY | 2025-01-29 12:29 | XMS_ITS | Encounter Summary ---
Author Organization [employer] Address [address] [place] [address] Care Team Providers Care Instructor Of Sociology Name Role Phone Jeramie Schwartz MD Primary Care Provider [phone] Encounter Details Date Type Department Care Team (Latest Contact Info) Description 07/07/2024 Lab Requisition [facility] - Main Lab 299 [facility] [address] [place] [address] Jeramie Schwartz MD [address] [place] [address] Dr [address] [place], [place] Diffuse traumatic brain injury with loss [...] LAB CHEMISTRY METHOD 07/07/2024 2:30 PM EST [facility] LAB Mean Bld Glu Estim. 108 mg/dL LAB CHEMISTRY METHOD 07/07/2024 2:30 PM EST [facility] LAB Blood Venous blood specimen / Unknown 07/07/2024 6:53 AM EST 07/07/2024 8:36 AM EST us Jeramie Schwartz MD LAB BLOOD ORDERABLES Final Resul t [facility] LAB [address] [place] [address], * (ABNORMAL) CBC auto differential (07/07/2024 6:53 AM EST) WBC 4.7(L) 4.8 - 10.8 K/mcL LAB HEMETOLOGY METHOD 07/07/2024 9:44 AM EST [facility] LAB RBC 4.00(L) 4.50 - 5.50 M/mcL LAB HEMETOLOGY METHOD 07/07/2024 9:44 AM EST [facility] LAB Hemoglobin 10.4(L) 13.5 - 17.5 g/dL LAB HEMETOLOGY METHOD 07/07/2024 9:44 AM [facility] LAB Hematocrit 33.5(L) 42.0 - 54.0 % LAB HEMETOLOGY METHOD 07/07/2024 9:44 AM [facility] LAB MCV 84.2 79.0 - 98.0 FL LAB HEMETOLOGY METHOD 07/07/2024 9:44 AM [facility] LAB MCH 26.1(L) 27.0 - 32.0 pcg LAB HEMETOLOGY METHOD 07/07/2024 9:44 AM [facility] LAB MCHC 31.0(L) 32.0 - 37.0 g/dL LAB HEMETOLOGY METHOD 07/07/2024 9:44 AM [facility] LAB RDW 19.0(H) 11.0 - 15.0 % LAB HEMETOLOGY METHOD 07/07/2024 9:44 AM [facility] LAB Platelets 275 130 - 400 K/mcL LAB HEMETOLOGY METHOD 07/07/2024 9:44 AM [facility] LAB MPV 10.9 7.0 - 11.0 FL LAB HEMETOLOGY METHOD 07/07/2024 9:44 AM [facility] LAB NRBC 0.0 <1.0 % LAB HEMETOLOGY METHOD 07/07/2024 9:44 AM [facility] LAB NRBC Absolute 0.00 <0.10 K/mcL LAB HEMETOLOGY METHOD 07/07/2024 9:44 AM [facility] LAB Neutrophils Relative 65.9 % LAB HEMETOLOGY METHOD 07/07/2024 9:44 AM [facility] LAB Lymphocytes Relative 15.7 % LAB HEMETOLOGY METHOD 07/07/2024 9:44 AM [facility] LAB Monocytes Relative 12.9 % LAB HEMETOLOGY METHOD 07/07/2024 9:44 AM [facility] LAB Eosinophils Relative 4.5 % LAB HEMETOLOGY METHOD 07/07/2024 9:44 AM [facility] Basophils Relative 0.4 % LAB HEMETOLOGY METHOD 07/07/2024 9:44 AM [facility] LAB Immature Granulocytes Relative 0.6 % LAB HEMETOLOGY METHOD 07/07/2024 9:44 AM [facility] LAB Neutrophils Absolute 3.06 1.50 - 7.00 K/mcL LAB HEMETOLOGY METHOD 07/07/2024 9:44 AM [facility] LAB Lymphocytes Absolute 0.73(L) 1.00 - 5.00 K/mcL LAB HEMETOLOGY METHOD 07/07/2024 9:44 AM [facility] LAB Monocytes Absolute 0.60 0.20 - 1.00 K/mcL LAB HEMETOLOGY METHOD 07/07/2024 9:44 AM EST [facility] LAB Eosinophils Absolute 0.21 0.00 - 0.50 K/mcL LAB HEMETOLOGY METHOD 07/07/2024 9:44 AM [facility] LAB Basophils Absolute 0.02 0.00 - 0.20 K/mcL LAB HEMETOLOGY METHOD 07/07/2024 9:44 AM [facility] LAB Immature Granulocytes Absolute 0.03 0.00 - 0.03 K/mcL LAB HEMETOLOGY METHOD 07/07/2024 9:44 AM [facility] LAB Blood Venous blood specimen / Unknown 07/07/2024 6:53 AM EST 07/07/2024 8:36 AM EST us Jeramie Schwartz MD LAB BLOOD ORDERABLES Final Resul t [facility] LAB [address] [place] [address], documented in this encounter Visit Diagnoses Diagnosis 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 unspecified duration, sequela ([facility] V24) Acute embolism and thrombosis of unspecified deep veins of right lower extremity ([facility] V24, [facility] V28) Hyperlipidemia, unspecified Vitamin D deficiency, unspecified Type 2 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, left eye ([facility] V24, [facility] V28) documented in this encounter Care Teams Instructor Of Sociology Relationship Specialty Start Date End Date Jeramie Schwartz MD [address] [place] [address] Dr [address] [place] PCP - General Internal Medicine 06/02/24 documented as of this encounter
--- OUTSIDE RECORDS SUMMARY | 2025-01-29 12:29 | XMS_ITS | Encounter Summary ---
Author Organization [employer] Address [address] [place] [address] Care Team Providers Care Orthopedic Rn Name Role Phone Jeramie Schwartz MD Primary Care Provider [phone] Encounter Details Date Type Department Care Team (Latest Contact Info) Description 01/14/2025 Lab Requisition [facility] - Main Lab 299 [facility] [place] [address] Jeramie Schwartz MD [address] [place] [address] Dr [address] [place] Type 2 diabetes mellitus with mild nonproliferative [...] CBC auto differential (01/14/2025 6:33 AM EDT) [facility] WBC 5.6 4.8 - 10.8 K/mcL LAB HEMETOLOGY METHOD 01/14/2025 8:09 AM [facility] LAB RBC 5.40 4.50 - 5.50 M/mcL LAB HEMETOLOGY METHOD 01/14/2025 8:09 AM [facility] LAB Hemoglobin 13.8 13.5 - 17.5 g/dL LAB HEMETOLOGY METHOD 01/14/2025 8:09 AM [facility] LAB Hematocrit 44.6 42.0 - 54.0 % LAB HEMETOLOGY METHOD 01/14/2025 8:09 AM [facility] LAB MCV 82.4 79.0 - 98.0 FL LAB HEMETOLOGY METHOD 01/14/2025 8:09 AM [facility] LAB MCH 25.5(L) 27.0 - 32.0 pcg LAB HEMETOLOGY METHOD 01/14/2025 8:09 AM [facility] LAB MCHC 30.9(L) 32.0 - 37.0 g/dL LAB HEMETOLOGY METHOD 01/14/2025 8:09 AM [facility] LAB RDW 17.2(H) 11.0 - 15.0 % LAB HEMETOLOGY METHOD 01/14/2025 8:09 AM [facility] LAB Platelets 149 130 - 400 K/mcL LAB HEMETOLOGY METHOD 01/14/2025 8:09 AM [facility] LAB MPV LAB HEMETOLOGY METHOD 01/14/2025 8:09 AM [facility] LAB Comment:Not Measured NRBC 0.0 <1.0 % LAB HEMETOLOGY METHOD 01/14/2025 8:09 AM [facility] LAB NRBC Absolute 0.00 <0.10 K/mcL LAB HEMETOLOGY METHOD 01/14/2025 8:09 AM [facility] LAB Neutrophils Relative 82.4 % LAB HEMETOLOGY METHOD 01/14/2025 8:09 AM [facility] LAB Lymphocytes Relative 12.9 % LAB HEMETOLOGY METHOD 01/14/2025 8:09 AM [facility] LAB Monocytes Relative 3.9 % LAB HEMETOLOGY METHOD 01/14/2025 8:09 AM [facility] LAB Eosinophils Relative 0.2 % LAB HEMETOLOGY METHOD 01/14/2025 8:09 AM [facility] Basophils Relative 0.2 % LAB HEMETOLOGY METHOD 01/14/2025 8:09 AM [facility] LAB Immature Granulocytes Relative 0.4 % LAB HEMETOLOGY METHOD 01/14/2025 8:09 AM [facility] LAB Neutrophils Absolute 4.62 1.50 - 7.00 K/mcL LAB HEMETOLOGY METHOD 01/14/2025 8:09 AM [facility] LAB Lymphocytes Absolute 0.72(L) 1.00 - 5.00 K/mcL LAB HEMETOLOGY METHOD 01/14/2025 8:09 AM [facility] LAB Monocytes Absolute 0.22 0.20 - 1.00 K/mcL LAB HEMETOLOGY METHOD 01/14/2025 8:09 AM [facility] LAB Eosinophils Absolute 0.01 0.00 - 0.50 K/mcL LAB HEMETOLOGY METHOD 01/14/2025 8:09 AM [facility] LAB Basophils Absolute 0.01 0.00 - 0.20 K/mcL LAB HEMETOLOGY METHOD 01/14/2025 8:09 AM [facility] LAB Immature Granulocytes Absolute 0.02 0.00 - 0.03 K/mcL LAB HEMETOLOGY METHOD 01/14/2025 8:09 AM [facility] LAB Blood Venous blood specimen / Unknown 01/14/2025 6:33 AM EDT 01/14/2025 7:58 AM EDT us Jeramie Schwartz MD LAB BLOOD ORDERABLES Final Resul t Performing Organization Address [facility] Co de Phone Number [facility] [address] [place] [address], [place] [phone] * Hemoglobin A1c (01/14/2025 6:33 AM EDT) Hemoglobin A1C 5.9 <6.5 % LAB CHEMISTRY METHOD 01/14/2025 11:10 AM EDT [facility] LAB Mean Bld Glu Estim. 123 mg/dL LAB CHEMISTRY METHOD 01/14/2025 11:10 AM EDT [facility] LAB Blood Venous blood specimen / Unknown 01/14/2025 6:33 AM EDT 01/14/2025 7:58 AM EDT us Jeramie Schwartz MD LAB BLOOD ORDERABLES Final Resul t Performing Organization Address [facility] Co de Phone Number [facility] [address] [place] [address], [place] [phone] documented in this encounter Visit Diagnoses Diagnosis Type 2 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, left eye (CMS/[facility] V24, [facility] V28) documented in this encounter Care Teams Orthopedic Rn Relationship Specialty Start Date End Date Jeramie Schwartz MD [address] [place] [address] Dr [address] [place] PCP - General Internal Medicine 06/02/24 documented as of this encounter
--- OUTSIDE RECORDS SUMMARY | 2025-01-29 12:29 | XMS_ITS | Encounter Summary ---
Author Organization [employer] [facility] Address [address] [place] [address] Care Team Providers Care Detonator Maker Name Role Phone Jeramie Schwartz MD Primary Care Provider Encounter Details Date Type Department Care Team (Late st Contact Info) Description 04/08/2024 Lab Requisition [facility] - Main Lab 299 [facility] [place] [address] Jeramie Schwartz MD [address] [place] [address] [address] [place], [place] Diffuse traumatic brain injury with loss of [...] % LAB HEMETOLOGY METHOD 04/08/2024 9:53 AM [facility] LAB Bands % 1.0 % LAB HEMETOLOGY METHOD 04/08/2024 9:53 AM [facility] LAB Lymphocytes % 34.0 % LAB HEMETOLOGY METHOD 04/08/2024 9:53 AM [facility] LAB Monocytes % 15.0 % LAB HEMETOLOGY METHOD 04/08/2024 9:53 AM [facility] LAB Eosinophils % 16.0 % LAB HEMETOLOGY METHOD 04/08/2024 9:53 AM [facility] LAB Basophils % 1.0 % LAB HEMETOLOGY METHOD 04/08/2024 9:53 AM [facility] LAB Neutrophils Absolute Manual 0.88(L) 1.50 - 7.00 K/mcL LAB HEMETOLOGY METHOD 04/08/2024 9:53 AM [facility] LAB Bands Absolute Manual 0.03(H) 0.00 - 0.00 K/mcL LAB HEMETOLOGY METHOD 04/08/2024 9:53 AM [facility] LAB Lymphocytes Absolute 0.88(L) 1.00 - 5.00 K/mcL LAB HEMETOLOGY METHOD 04/08/2024 9:53 AM [facility] LAB Monocytes Absolute Manual 0.39 0.20 - 1.00 K/mcL LAB HEMETOLOGY METHOD 04/08/2024 9:53 AM [facility] LAB Eosinophils Absolute Manual 0.42 0.00 - 0.50 K/mcL LAB HEMETOLOGY METHOD 04/08/2024 9:53 AM [facility] LAB Basophils Absolute Manual 0.03 0.00 - 0.20 K/mcL LAB HEMETOLOGY METHOD 04/08/2024 9:53 AM [facility] Rbc Morphology Present( A) Consistent with indices, Normal for LAB HEMETOLOGY METHOD 04/08/2024 9:53 AM [facility] LAB Platelet Morphology - WAM See Note(A) Normal LAB HEMETOLOGY METHOD 04/08/2024 9:53 AM [facility] LAB Comment:PLT: Normal Ovalocytes Present 11 - 15%(A) (none) LAB HEMETOLOGY METHOD 04/08/2024 9:53 AM [facility] LAB Blood Venous blood specimen / Unknown 04/08/2024 6:31 AM EST 04/08/2024 8:43 AM EST us Jeramie Schwartz MD LAB BLOOD ORDERABLES Final Resul t Performing Organization Address City/[facility]/ZIP Co de Phone Number [facility] [address] [place] [address], [place] [phone] * Lavender tube (04/08/2024 6:31 AM EST) Extra Tube Hold for add-ons. 04/08/2024 10:01 AM EST [facility] LAB Comment:Auto resulted. Blood Venous blood specimen / Unknown 04/08/2024 6:31 AM EST 04/08/2024 8:43 AM EST us Jeramie Schwartz MD LAB BLOOD ORDERABLES Final Resul t Performing Organization Address [facility]/ZIP Co de Phone Number [facility] [address] [place] [address], [place] [phone] * (ABNORMAL) CBC auto differential (04/08/2024 6:31 AM EST) WBC 2.6(L) 4.8 - 10.8 K/mcL LAB HEMETOLOGY METHOD 04/08/2024 9:53 AM [facility] RBC 3.80(L) 4.50 - 5.50 M/mcL LAB HEMETOLOGY METHOD 04/08/2024 9:53 AM [facility] Hemoglobin 9.6(L) 13.5 - 17.5 g/dL LAB HEMETOLOGY METHOD 04/08/2024 9:53 AM [facility] LAB Hematocrit 31.5(L) 42.0 - 54.0 % LAB HEMETOLOGY METHOD 04/08/2024 9:53 AM [facility] LAB MCV 83.6 79.0 - 98.0 FL LAB HEMETOLOGY METHOD 04/08/2024 9:53 AM [facility] LAB MCH 25.5(L) 27.0 - 32.0 pcg LAB HEMETOLOGY METHOD 04/08/2024 9:53 AM [facility] LAB MCHC 30.5(L) 32.0 - 37.0 g/dL LAB HEMETOLOGY METHOD 04/08/2024 9:53 AM [facility] LAB RDW 16.3(H) 11.0 - 15.0 % LAB HEMETOLOGY METHOD 04/08/2024 9:53 AM [facility] LAB Platelets 338 130 - 400 K/mcL LAB HEMETOLOGY METHOD 04/08/2024 9:53 AM [facility] LAB MPV 11.9(H) 7.0 - 11.0 FL LAB HEMETOLOGY METHOD 04/08/2024 9:53 AM [facility] LAB NRBC 0.0 <1.0 % LAB HEMETOLOGY METHOD 04/08/2024 9:53 AM [facility] LAB NRBC Absolute 0.00 <0.10 K/mcL LAB HEMETOLOGY METHOD 04/08/2024 9:53 AM [facility] Blood Venous blood specimen / Unknown 04/08/2024 6:31 AM EST 04/08/2024 8:43 AM EST us Jeramie Schwartz MD LAB BLOOD ORDERABLES Final Resul t Performing Organization Address [facility]/ZIP Co de Phone Number [facility] [address] [place] [address], [place] [phone] * Hemoglobin A1c (04/08/2024 6:31 AM EST) [...] ORDERABLES Final Resul t Performing Organization Address [facility]/ZIP Co de Phone Number [facility] [address] [place] [address], [place] [phone] documented in this encounter Visit Diagnoses Diagnosis 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 unspecified duration, sequela (CMS/HCC V24) documented in this encounter Care Teams Detonator Maker Relationship Specialty Start Date End Date Jeramie Schwartz MD [address] [place] [address] Dr [address] [place] PCP - General Internal Medicine 06/02/24 documented as of this encounter
--- OUTSIDE RECORDS SUMMARY | 2025-01-29 12:29 | XMS_ITS | Encounter Summary ---
Author Organization [employer] Address [address] [place] [address] Care Team Providers Care Electroneurodiagnostic Technician Name Role Phone Jeramie Schwartz MD Primary Care Provider [phone] Encounter Details Date Type Department Care Team (Late st Contact Info) Description 10/01/2024 Lab Requisition [facility] - Main Lab 299 [facility] [place] [address] Jeramie Schwartz MD [address] [place] [address] Dr [address] [place] Diffuse traumatic brain injury with loss of [...] AM EDT) WBC 3.7(L) 4.8 - 10.8 K/[facility] LAB HEMETOLOGY METHOD 10/01/2024 7:59 AM EDT [facility] LAB RBC 4.70 4.50 - 5.50 M/mcL LAB HEMETOLOGY METHOD 10/01/2024 7:59 AM [facility] LAB Hemoglobin 12.1(L) 13.5 - 17.5 g/dL LAB HEMETOLOGY METHOD 10/01/2024 7:59 AM [facility] LAB Hematocrit 39.3(L) 42.0 - 54.0 % LAB HEMETOLOGY METHOD 10/01/2024 7:59 AM [facility] LAB MCV 83.1 79.0 - 98.0 FL LAB HEMETOLOGY METHOD 10/01/2024 7:59 AM [facility] LAB MCH 25.6(L) 27.0 - 32.0 pcg LAB HEMETOLOGY METHOD 10/01/2024 7:59 AM [facility] LAB MCHC 30.8(L) 32.0 - 37.0 g/dL LAB HEMETOLOGY METHOD 10/01/2024 7:59 AM [facility] LAB RDW 16.4(H) 11.0 - 15.0 % LAB HEMETOLOGY METHOD 10/01/2024 7:59 AM [facility] LAB Platelets 186 130 - 400 K/mcL LAB HEMETOLOGY METHOD 10/01/2024 7:59 AM [facility] LAB MPV 13.1(H) 7.0 - 11.0 FL LAB HEMETOLOGY METHOD 10/01/2024 7:59 AM [facility] LAB NRBC 0.0 <1.0 % LAB HEMETOLOGY METHOD 10/01/2024 7:59 AM [facility] LAB NRBC Absolute 0.00 <0.10 K/mcL LAB HEMETOLOGY METHOD 10/01/2024 7:59 AM [facility] LAB Neutrophils Relative 42.6 % LAB HEMETOLOGY METHOD 10/01/2024 7:59 AM [facility] LAB Lymphocytes Relative 31.2 % LAB HEMETOLOGY METHOD 10/01/2024 7:59 AM [facility] LAB Monocytes Relative 17.0 % LAB HEMETOLOGY METHOD 10/01/2024 7:59 AM [facility] LAB Eosinophils Relative 8.2 % LAB HEMETOLOGY METHOD 10/01/2024 7:59 AM [facility] Basophils Relative 0.5 % LAB HEMETOLOGY METHOD 10/01/2024 7:59 AM [facility] LAB Immature Granulocytes Relative 0.5 % LAB HEMETOLOGY METHOD 10/01/2024 7:59 AM [facility] LAB Neutrophils Absolute 1.55 1.50 - 7.00 K/mcL LAB HEMETOLOGY METHOD 10/01/2024 7:59 AM [facility] Lymphocytes Absolute 1.14 1.00 - 5.00 K/mcL LAB HEMETOLOGY METHOD 10/01/2024 7:59 AM [facility] Monocytes Absolute 0.62 0.20 - 1.00 K/mcL LAB HEMETOLOGY METHOD 10/01/2024 7:59 AM [facility] Eosinophils Absolute 0.30 0.00 - 0.50 K/mcL LAB HEMETOLOGY METHOD 10/01/2024 7:59 AM [facility] LAB Basophils Absolute 0.02 0.00 - 0.20 K/mcL LAB HEMETOLOGY METHOD 10/01/2024 7:59 AM [facility] LAB Immature Granulocytes Absolute 0.02 0.00 - 0.03 K/mcL LAB HEMETOLOGY METHOD 10/01/2024 7:59 AM [facility] Blood Venous blood specimen / Unknown 10/01/2024 6:55 AM EDT 10/01/2024 7:26 AM EDT us Jeramie Schwartz MD LAB BLOOD ORDERABLES Final Resul t [facility] ([facility] [address] [place] [address], documented in this encounter Visit Diagnoses Diagnosis Diffuse traumatic brain injury with loss of consciousness status unknown, sequela (CMS/[facility] V24) Vitamin D deficiency, unspecified documented in this encounter Care Teams Electroneurodiagnostic Technician Relationship Specialty Start Date End Date Jeramie Schawrtz MD [address] [place] [address] Dr [address] [place], [place] PCP - General Internal Medicine 06/02/24 documented as of this encounter
--- OUTSIDE RECORDS SUMMARY | 2025-01-29 12:29 | XMS_ITS | Encounter Summary ---
Author Organization [employer] Address [address] [place] [address] Care Team Providers Care Senior Cost Accountant Name Role Phone Jeramie Schwartz MD Primary Care Provider [phone] Encounter Details Date Type Department Care Team (Late st Contact Info) Description 08/26/2024 Lab Requisition [facility] - Main Lab 299 [facility] [place] [address] Jeramie Schwartz MD [address] [place] [address] [address] [place] Diffuse traumatic brain injury with loss [...] AM EDT) WBC 3.6(L) 4.8 - 10.8 K/[facility] LAB HEMETOLOGY METHOD 08/26/2024 7:31 AM EDT [facility] RBC 3.80(L) 4.50 - 5.50 M/mcL LAB HEMETOLOGY METHOD 08/26/2024 7:31 AM [facility] Hemoglobin 10.1(L) 13.5 - 17.5 g/dL LAB HEMETOLOGY METHOD 08/26/2024 7:31 AM [facility] LAB Hematocrit 32.6(L) 42.0 - 54.0 % LAB HEMETOLOGY METHOD 08/26/2024 7:31 AM [facility] LAB MCV 84.9 79.0 - 98.0 FL LAB HEMETOLOGY METHOD 08/26/2024 7:31 AM [facility] LAB MCH 26.3(L) 27.0 - 32.0 pcg LAB HEMETOLOGY METHOD 08/26/2024 7:31 AM [facility] LAB MCHC 31.0(L) 32.0 - 37.0 g/dL LAB HEMETOLOGY METHOD 08/26/2024 7:31 AM [facility] LAB RDW 16.6(H) 11.0 - 15.0 % LAB HEMETOLOGY METHOD 08/26/2024 7:31 AM [facility] LAB Platelets 265 130 - 400 K/mcL LAB HEMETOLOGY METHOD 08/26/2024 7:31 AM [facility] LAB MPV 12.3(H) 7.0 - 11.0 FL LAB HEMETOLOGY METHOD 08/26/2024 7:31 AM [facility] LAB NRBC 0.0 <1.0 % LAB HEMETOLOGY METHOD 08/26/2024 7:31 AM [facility] LAB NRBC Absolute 0.00 <0.10 K/mcL LAB HEMETOLOGY METHOD 08/26/2024 7:31 AM [facility] Neutrophils Relative 46.9 % LAB HEMETOLOGY METHOD 08/26/2024 7:31 AM [facility] Lymphocytes Relative 26.7 % LAB HEMETOLOGY METHOD 08/26/2024 7:31 AM [facility] Monocytes Relative 18.8 % LAB HEMETOLOGY METHOD 08/26/2024 7:31 AM [facility] Eosinophils Relative 6.7 % LAB HEMETOLOGY METHOD 08/26/2024 7:31 AM [facility] Basophils Relative 0.6 % LAB HEMETOLOGY METHOD 08/26/2024 7:31 AM [facility] Immature Granulocytes Relative 0.3 % LAB HEMETOLOGY METHOD 08/26/2024 7:31 AM [facility] LAB Neutrophils Absolute 1.67 1.50 - 7.00 K/mcL LAB HEMETOLOGY METHOD 08/26/2024 7:31 AM [facility] LAB Lymphocytes Absolute 0.95(L) 1.00 - 5.00 K/mcL LAB HEMETOLOGY METHOD 08/26/2024 7:31 AM [facility] Monocytes Absolute 0.67 0.20 - 1.00 K/mcL LAB HEMETOLOGY METHOD 08/26/2024 7:31 AM [facility] Eosinophils Absolute 0.24 0.00 - 0.50 K/mcL LAB HEMETOLOGY METHOD 08/26/2024 7:31 AM [facility] LAB Basophils Absolute 0.02 0.00 - 0.20 K/mcL LAB HEMETOLOGY METHOD 08/26/2024 7:31 AM [facility] LAB Immature Granulocytes Absolute 0.01 0.00 - 0.03 K/mcL LAB HEMETOLOGY METHOD 08/26/2024 7:31 AM [facility] Blood Venous blood specimen / Unknown 08/26/2024 6:00 AM EDT 08/26/2024 7:09 AM EDT us Jeramie Schwartz MD LAB BLOOD ORDERABLES Final Resul t [facility] [address] [place] [address], documented in this encounter Visit Diagnoses Diagnosis 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 unspecified duration, sequela (CMS/HCC V24) Hyperlipidemia, unspecified documented in this encounter Care Teams Senior Cost Accountant Relationship Specialty Start Date End Date Jeramie Schwartz MD [address] [place] [address] Dr [address] [place], [place] PCP - General Internal Medicine 06/02/24 documented as of this encounter
--- OUTSIDE RECORDS SUMMARY | 2025-01-29 12:29 | XMS_ITS | Encounter Summary ---
Author Organization [facility] Address [address] [place] [address] Care Team Providers Care Geospatial Information Technologist Name Role Phone Jeramie Schwartz MD Primary Care Provider Encounter Details Date Type Department Care Team (Late st Contact Info) Description 09/04/2024 Lab Requisition [facility] Lab [address] [place] [address] Jeramie Schwartz MD [address] [place] [address] Dr [address] [place], [place] Social History Tobacco Use Types [...] Positive( A) Negative 09/04/2024 5:13 PM EDT [facility] Stool Rectum structure / Unknown 09/04/2024 10:45 AM EDT 09/04/2024 3:26 PM EDT us Jeramie Schwartz MD LAB BODY FLUIDS AND STOOLS ORDER VELMA Final Result [facility] [address] [place] [address], [place] [phone] documented in this encounter Visit Diagnoses Diagnosis Melena Blood in stool documented in this encounter Care Teams Geospatial Information Technologist Relationship Specialty Start Date End Date Jeramie Schwartz MD [address] [place] [address] Dr [address] MARS Chaudhry PCP - General Internal Medicine 06/02/24 documented as of this encounter
--- OUTSIDE RECORDS SUMMARY | 2025-01-29 12:29 | XMS_ITS | Encounter Summary ---
Author Organization [employer] Address [address] [place] [address] Care Team Providers Care Case Specialist Name Role Phone Jeramie Schwartz MD Primary Care Provider [phone] Encounter Details Date Type Department Care Team (Latest Contact Info) Description 10/14/2024 Lab Requisition [facility] - Main Lab [address] [place] [address] Jeramie Schwartz MD [address] [place] [address] Dr [address] [place] Type 2 diabetes mellitus with mild nonproliferative [...] diabetic retinopathy with macular edema, left eye ([facility] V24, [facility] V28) documented in this encounter Results * [...] LAB HEMETOLOGY METHOD 10/14/2024 9:21 AM EDT [facility] Platelet Morphology - WAM See Note(A) Normal LAB HEMETOLOGY METHOD 10/14/2024 9:21 AM EDT [facility] Comment:PLT: Normal Ovalocytes Present 5 - 10%(A) (none) LAB HEMETOLOGY METHOD 10/14/2024 9:21 AM EDT [facility] Blood Venous blood specimen / Unknown 10/14/2024 7:20 AM EDT 10/14/2024 8:22 AM EDT us Jeramie Schwartz MD LAB BLOOD ORDERABLES Final Resul t [facility] [address] [place] [address], * (ABNORMAL) CBC auto differential (10/14/2024 7:20 AM EDT) WBC 3.1(L) 4.8 - 10.8 K/mcL LAB HEMETOLOGY METHOD [facility]24 [facility] RBC 4.80 4.50 - 5.50 M/mcL LAB HEMETOLOGY METHOD 10/14/2024 9:21 AM [facility] Hemoglobin 12.2(L) 13.5 - 17.5 g/dL LAB HEMETOLOGY METHOD 10/14/2024 9:21 AM EDT [facility] Hematocrit 39.0(L) 42.0 - 54.0 % LAB HEMETOLOGY METHOD 10/14/2024 9:21 AM EDT [facility] MCV 81.3 79.0 - 98.0 FL LAB HEMETOLOGY METHOD 10/14/2024 9:21 AM [facility] MCH 25.4(L) 27.0 - 32.0 pcg LAB HEMETOLOGY METHOD 10/14/2024 9:21 AM EDT [facility] MCHC 31.3(L) 32.0 - 37.0 g/dL LAB HEMETOLOGY METHOD 10/14/2024 9:21 AM EDT [facility] RDW 16.1(H) 11.0 - 15.0 % LAB HEMETOLOGY METHOD 10/14/2024 9:21 AM EDT [facility] Platelets 208 130 - 400 K/mcL LAB HEMETOLOGY METHOD 10/14/2024 9:21 AM EDT [facility] MPV LAB HEMETOLOGY METHOD 10/14/2024 9:21 AM EDT [facility] Comment:Not Measured NRBC 0.0 <1.0 % LAB HEMETOLOGY METHOD 10/14/2024 9:21 AM EDT [facility] NRBC Absolute 0.00 <0.10 K/mcL LAB HEMETOLOGY METHOD 10/14/2024 9:21 AM EDT [facility] Blood Venous blood specimen / Unknown 10/14/2024 7:20 AM EDT 10/14/2024 8:22 AM EDT us Jeramie Schwartz MD LAB BLOOD ORDERABLES Final Resul t [facility] [address] [place] [address], * Hemoglobin A1c (10/14/2024 7:20 AM EDT) Hemoglobin A1C 5.6 <6.5 % LAB CHEMISTRY METHOD 10/14/2024 12:17 PM EDT [facility] Mean Bld Glu Estim. 114 mg/dL LAB CHEMISTRY METHOD 10/14/2024 12:17 PM EDT [facility] Blood Venous blood specimen / Unknown 10/14/2024 7:20 AM EDT 10/14/2024 8:22 AM EDT Jeramie Schwartz MD LAB BLOOD ORDERABLES Final Resul t [facility] ([facility]) [facility] [address] [place] [address], documented in this encounter Visit Diagnoses Diagnosis Type 2 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, left eye ([facility] V24, [facility] V28) documented in this encounter Care Teams Case Specialist Relationship Specialty Start Date End Date Jeramie Schwartz MD [address] [place], [place] PCP - General Internal Medicine 06/02/24 documented as of this encounter
--- OUTSIDE RECORDS SUMMARY | 2025-01-29 12:29 | XMS_ITS | Encounter Summary ---
Author Organization [employer] Address [address] [place] [address] Care Team Providers Care Line Out Man Name Role Phone Jeramie Schwartz MD Primary Care Provider [phone] Encounter Details Date Type Department Care Team (Late st Contact Info) Description 07/27/2024 Lab Requisition [facility] - Main Lab [address] [facility] [place] [address] Jeramie Schwartz MD [address] [place] [address] Dr [address] [place], [place] Benign prostatic hyperplasia without lower urinary [...] LAB CHEMISTRY METHOD 07/27/2024 5:44 AM EDT [facility] eGFR 80 >=60 mL/min/1. 73m2 LAB CHEMISTRY METHOD 07/27/2024 5:44 AM EDT [facility] Comment:Calculation based on the Chronic Kidney Disease Epidemiology Collaboration (CKD-EPI) equation refit without adjustment for race. Blood Venous blood specimen / Unknown 07/27/2024 4:44 AM EDT 07/27/2024 5:27 AM EDT us Jeramie Schwartz MD LAB BLOOD ORDERABLES Final Resul t Performing Organization Address [facility] Co de Phone Number [facility] [address] [place] [address], [place] [phone] * BUN (07/27/2024 4:44 AM EDT) BUN 18 5 - 25 mg/dL LAB CHEMISTRY METHOD 07/27/2024 5:44 AM EDT [facility] Blood Venous blood specimen / Unknown 07/27/2024 4:44 AM EDT 07/27/2024 5:27 AM EDT us Jeramie Schwartz MD LAB BLOOD ORDERABLES Final Resul t Performing Organization Address [facility] de Phone Number [facility] [address] [place] [address], [place] [phone] documented in this encounter Visit Diagnoses Diagnosis Benign prostatic hyperplasia without lower urinary tract symptoms documented in this encounter Care Teams Line Out Man Relationship Specialty Start Date End Date Jeramie Schwartz MD [address] [place] PCP - General Internal Medicine 06/02/24 documented as of this encounter
--- OUTSIDE RECORDS SUMMARY | 2025-01-29 12:29 | XMS_ITS | Encounter Summary ---
Author Organization [facility] Address [address] [place] [address] Care Team Providers Care Grave Cleaner Name Role Phone Jeramie Schwartz MD Primary Care Provider [phone] Encounter Details Date Type Department Care Team (Late st Contact Info) Description 08/12/2024 Lab Requisition [facility] - Main Lab [address] [facility] [place] [address] Jeramie Schwartz MD [address] [place] [address] Dr [address] [place] 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 unspecified duration, sequela (CMS/HCC V24); Essential (primary) hypertension; Other skilled nursing (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 Social History Tobacco Use [...] hypertension Other skilled nursing (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 documented in this encounter Results * (ABNORMAL) CBC auto differential (08/12/2024 5:42 AM EDT) WBC 3.7(L) 4.8 - 10.8 K/mcL LAB HEMETOLOGY METHOD 08/12/2024 6:[address] [facility] RBC 3.80(L) 4.50 - 5.50 M/mcL LAB HEMETOLOGY METHOD 08/12/2024 6:[address] [facility] Hemoglobin 9.9(L) 13.5 - 17.5 g/dL LAB HEMETOLOGY METHOD 08/12/2024 6:[address] [facility] Hematocrit 31.3(L) 42.0 - 54.0 % LAB HEMETOLOGY METHOD 08/12/2024 6:[address] [facility] MCV 83.0 79.0 - 98.0 FL LAB HEMETOLOGY METHOD 08/12/2024 6:[address] [facility] MCH 26.3(L) 27.0 - 32.0 pcg LAB HEMETOLOGY METHOD 08/12/2024 6:[address] [facility] MCHC 31.6(L) 32.0 - 37.0 g/dL LAB HEMETOLOGY METHOD 08/12/2024 6:[address] [facility] RDW 16.4(H) 11.0 - 15.0 % LAB HEMETOLOGY METHOD 08/12/2024 6:[address] [facility] Platelets 207 130 - 400 K/mcL LAB HEMETOLOGY METHOD 08/12/2024 6:[address] [facility] MPV 10.3 7.0 - 11.0 FL LAB HEMETOLOGY METHOD 08/12/2024 6:[address] [facility] NRBC 0.0 <1.0 % LAB HEMETOLOGY METHOD 08/12/2024 6:[address] [facility] NRBC Absolute 0.00 <0.10 K/mcL LAB HEMETOLOGY METHOD 08/12/2024 6:[address] [facility] Neutrophils Relative 41.0 % LAB HEMETOLOGY METHOD 08/12/2024 6:[address] [facility] Lymphocytes Relative 34.3 % LAB HEMETOLOGY METHOD 08/12/2024 6:[address] [facility] Monocytes Relative 14.5 % LAB HEMETOLOGY METHOD 08/12/2024 6:[address] [facility] Eosinophils Relative 8.8 % LAB HEMETOLOGY METHOD 08/12/2024 6:[address] [facility] Basophils Relative 1.1 % LAB HEMETOLOGY METHOD 08/12/2024 6:[address] [facility] Immature Granulocytes Relative 0.3 % LAB HEMETOLOGY METHOD 08/12/2024 6:[address] [facility] Neutrophils Absolute 1.53 1.50 - 7.00 K/mcL LAB HEMETOLOGY METHOD 08/12/2024 6:[address] [facility] Lymphocytes Absolute 1.28 1.00 - 5.00 K/mcL LAB HEMETOLOGY METHOD 08/12/2024 6:[address] [facility] Monocytes Absolute 0.54 0.20 - 1.00 K/mcL LAB HEMETOLOGY METHOD 08/12/2024 6:[address] [facility] Eosinophils Absolute 0.33 0.00 - 0.50 K/mcL LAB HEMETOLOGY METHOD 08/12/2024 6:[address] [facility] Basophils Absolute 0.04 0.00 - 0.20 K/mcL LAB HEMETOLOGY METHOD 08/12/2024 6:[address] [facility] Immature Granulocytes Absolute 0.01 0.00 - 0.03 K/mcL LAB HEMETOLOGY METHOD 08/12/2024 6:[address] [facility] Blood Venous blood specimen / Unknown 08/12/2024 5:42 AM EDT 08/12/2024 6:29 AM EDT Jeramie Schwartz MD LAB BLOOD ORDERABLES Final Resul t [facility] ([facility]) [facility] [address] [place] [address], documented in this encounter Visit Diagnoses Diagnosis 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 unspecified duration, sequela (CMS/HCC V24) Essential (primary) hypertension Unspecified essential hypertension Other skilled nursing (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 documented in this encounter Care Teams Grave Cleaner Relationship Specialty Start Date End Date Jeramie Schwartz MD [address] [place], [place] PCP - General Internal Medicine 06/02/24 documented as of this encounter
--- OUTSIDE RECORDS SUMMARY | 2025-01-29 12:29 | XMS_ITS | Encounter Summary ---
Author Organization Erika [facility] Address [address] [place] [address] Care Team Providers Care Brokerage Coordinator Name Role Phone Jeramie Schwartz MD Primary Care Provider Encounter Details Date Type Department Care Team (Late st Contact Info) Description 12/14/2024 Lab Requisition [facility] - Main Lab [address] [place] [address] Jeramie Schwartz MD [address] [place] [address] Dr [address] [place], [place] Other fecal abnormalities Social History Tobacco [...] LAB HEMETOLOGY METHOD 12/14/2024 6:47 AM EDT [facility] RBC 4.70 4.50 - 5.50 M/mcL LAB HEMETOLOGY METHOD 12/14/2024 6:47 AM EDT [facility] Hemoglobin 11.9(L) 13.5 - 17.5 g/dL LAB HEMETOLOGY METHOD 12/14/2024 6:47 AM [facility] Hematocrit 38.9(L) 42.0 - 54.0 % LAB HEMETOLOGY METHOD 12/14/2024 6:47 AM [facility] MCV 82.6 79.0 - 98.0 FL LAB HEMETOLOGY METHOD 12/14/2024 6:47 AM [facility] MCH 25.3(L) 27.0 - 32.0 pcg LAB HEMETOLOGY METHOD 12/14/2024 6:47 AM [facility] MCHC 30.6(L) 32.0 - 37.0 g/dL LAB HEMETOLOGY METHOD 12/14/2024 6:47 AM [facility] RDW 17.1(H) 11.0 - 15.0 % LAB HEMETOLOGY METHOD 12/14/2024 6:47 AM [facility] Platelets 176 130 - 400 K/mcL LAB HEMETOLOGY METHOD 12/14/2024 6:47 AM [facility] MPV 10.7 7.0 - 11.0 FL LAB HEMETOLOGY METHOD 12/14/2024 6:47 AM [facility] NRBC 0.0 <1.0 % LAB HEMETOLOGY METHOD 12/14/2024 6:47 AM [facility] NRBC Absolute 0.00 <0.10 K/mcL LAB HEMETOLOGY METHOD 12/14/2024 6:47 AM [facility] Neutrophils Relative 40.6 % LAB HEMETOLOGY METHOD 12/14/2024 6:47 AM [facility] Lymphocytes Relative 35.7 % LAB HEMETOLOGY METHOD 12/14/2024 6:47 AM [facility] Monocytes Relative 20.2 % LAB HEMETOLOGY METHOD 12/14/2024 6:47 AM EDT [facility] Eosinophils Relative 2.7 % LAB HEMETOLOGY METHOD 12/14/2024 6:47 AM EDT [facility] Basophils Relative 0.4 % LAB HEMETOLOGY [facility] Immature Granulocytes Relative 0.4 % LAB HEMETOLOGY METHOD 12/14/2024 6:47 AM EDT [facility] Neutrophils Absolute 1.05(L) 1.50 - 7.00 K/mcL LAB HEMETOLOGY METHOD 12/14/2024 6:47 AM EDT [facility] Lymphocytes Absolute 0.92(L) 1.00 - 5.00 K/mcL LAB HEMETOLOGY METHOD 12/14/2024 6:47 AM EDT [facility] Monocytes Absolute 0.52 0.20 - 1.00 K/mcL LAB HEMETOLOGY METHOD 12/14/2024 6:47 AM EDT [facility] Eosinophils Absolute 0.07 0.00 - 0.50 K/mcL LAB HEMETOLOGY METHOD 12/14/2024 6:47 AM EDT [facility] Basophils Absolute 0.01 0.00 - 0.20 K/mcL LAB HEMETOLOGY METHOD 12/14/2024 6:47 AM T [facility] Immature Granulocytes Absolute 0.01 0.00 - 0.03 K/mcL LAB HEMETOLOGY METHOD 12/14/2024 6:47 AM EDT [facility] Blood Venous blood specimen / Unknown 12/14/2024 5:55 AM EDT 12/14/2024 6:36 AM EDT us Jeramie Schwartz MD LAB BLOOD ORDERABLES Final Resul t [facility] [address] [place] [address], documented in this encounter Visit Diagnoses Diagnosis Other fecal abnormalities documented in this encounter Care Teams Brokerage Coordinator Relationship Specialty Start Date End Date Jeramie Schwartz MD [address] [place] PCP - General Internal Medicine 06/02/24 documented as of this encounter
--- OUTSIDE RECORDS SUMMARY | 2025-01-29 12:29 | XMS_ITS | Encounter Summary ---
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 Social History Tobacco Use [...] PREGABALIN Routine 08/25/2024 5:20 AM EDT Other welt edge rounder (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 LEVETIRACETAM LEVEL Routine 08/25/2024 5 :20 AM EDT Other snf (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 documented in this encounter [...] 08/28/2024 5:05 PM EDT Performed at: - [address] [facility] [address] [place] [address] [id number] Die Machine Operator: Michelle Jimenez [facility], Phone: [phone] Jeramie Schwartz MD LAB BLOOD ORDERABLES Final Resul t Performing Organization Address City/[facility] Co de Phone Number [email or web address] * Levetiracetam level (08/25/2024 5:20 AM EDT) [facility] Levetiracetam 12.0 3.0 - 60.0 ug/mL 08/27/2024 5:48 AM EDT [facility] Comment: Steady state trough serum or plasma levels following doses of 1000 to 3000 mg/Day: 3 to 37 ug/mL. The same dosage regimen will typically result in peak levels of 10 to 60 ug/mL, at approximately 1.5 hours post dose. If applicable, any drug confirmation testing reported here was developed and the performance characteristics determined by [facility]. This confirmation testing has not been cleared or approved by the FDA. The laboratory is regulated under CLIA as qualified to perform high-complexity testing. This test is used for patient testing purposes. It should not be regarded as investigational or for research. Test performed at [facility], [address] , [place] [address] Marcy Abarca MD, PhD - Analysis Mgr Blood Venous blood specimen / Unknown 08/25/2024 5:20 AM EDT 08/25/2024 6:33 AM EDT us Jeramie Schwartz MD LAB BLOOD ORDERABLES Final Resul t Performing Organization Address [facility] Co de Phone Number [facility] [address] [place] [address] documented in this encounter Visit Diagnoses Diagnosis Other welt edge rounder (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 documented in this encounter Care Teams Hospital Pharmacy Technician Relationship Specialty Start Date End Date Jeramie Schwartz MD [address] [place] [address] Dr [address] [place] PCP - General Internal Medicine 06/02/24 documented as of this encounter
--- OUTSIDE RECORDS SUMMARY | 2025-01-29 12:29 | XMS_ITS | Encounter Summary ---
Author Organization Erika [facility] Address [address] [place] [address] Care Team Providers Care Plate And Frame Filter Operator Name Role Phone Jeramie Schwartz MD Primary Care Provider [phone] Encounter Details Date Type Department Care Team (Late st Contact Info) Description 09/04/2024 Lab Requisition [facility] - Main Lab [address] [facility] [place] [address] Jeramie Schwartz MD [address] [place] [address] [address] [place], [place] Vitamin D deficiency, unspecified Social History [...] LAB HEMETOLOGY METHOD 09/04/2024 9:33 AM EDT [facility] RBC 4.20(L) 4.50 - 5.50 M/mcL LAB HEMETOLOGY METHOD 09/04/2024 9:33 AM EDT [facility] Hemoglobin 11.1(L) 13.5 - 17.5 g/dL LAB HEMETOLOGY METHOD 09/04/2024 9:33 AM EDT [facility] Hematocrit 36.0(L) 42.0 - 54.0 % LAB HEMETOLOGY METHOD 09/04/2024 9:33 AM EDT [facility] MCV 84.9 79.0 - 98.0 FL LAB HEMETOLOGY METHOD 09/04/2024 9:33 AM EDT [facility] MCH 26.2(L) 27.0 - 32.0 pcg LAB HEMETOLOGY METHOD 09/04/2024 9:33 AM EDT [facility] MCHC 30.8(L) 32.0 - 37.0 g/dL LAB HEMETOLOGY METHOD 09/04/2024 9:33 AM EDT [facility] RDW 17.7(H) 11.0 - 15.0 % LAB HEMETOLOGY METHOD 09/04/2024 9[facility] Platelets 201 130 - 400 K/mcL LAB HEMETOLOGY METHOD 09/04/2024 9:33 AM EDT [facility] MPV LAB HEMETOLOGY METHOD 09/04/2024 9:33 AM EDT [facility] Comment:Not Measured NRBC 0.0 <1.0 % LAB HEMETOLOGY METHOD 09/04/2024 9:33 AM EDT [facility] NRBC Absolute 0.00 <0.10 K/mcL LAB HEMETOLOGY METHOD 09/04/2024 9:33 AM T [facility] Blood Venous blood specimen / Unknown 09/04/2024 7:32 AM EDT 09/04/2024 8:29 AM EDT us Jeramie Schwartz MD LAB BLOOD ORDERABLES Final Resul t [facility] [address] [place] [address], documented in this encounter Visit Diagnoses Diagnosis Vitamin D deficiency, unspecified documented in this encounter Care Teams Plate And Frame Filter Operator Relationship Specialty Start Date End Date Jeramie Schwartz MD [address] [place] [address] [address] [place] PCP - General Internal Medicine 06/02/24 documented as of this encounter
--- OUTSIDE RECORDS SUMMARY | 2025-01-29 12:29 | XMS_ITS | Encounter Summary ---
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 LAB HEMETOLOGY METHOD 09/17/2024 7:42 AM EDT [facility] RBC 4.50 4.50 - 5.50 M/[facility] LAB HEMETOLOGY METHOD 09/17/2024 7:42 AM EDT [facility] Hemoglobin 11.6(L) 13.5 - 17.5 g/dL LAB HEMETOLOGY METHOD 09/17/2024 7:42 AM [facility] Hematocrit 37.5(L) 42.0 - 54.0 % LAB HEMETOLOGY METHOD 09/17/2024 7:42 AM [facility] MCV 84.1 79.0 - 98.0 FL LAB HEMETOLOGY METHOD 09/17/2024 7:42 AM [facility] MCH 26.0(L) 27.0 - 32.0 pcg LAB HEMETOLOGY METHOD 09/17/2024 7:42 AM [facility] MCHC 30.9(L) 32.0 - 37.0 g/dL LAB HEMETOLOGY METHOD 09/17/2024 7:42 AM [facility] RDW 16.8(H) 11.0 - 15.0 % LAB HEMETOLOGY METHOD 09/17/2024 7:42 AM [facility] Platelets 233 130 - 400 K/mcL LAB HEMETOLOGY METHOD 09/17/2024 7:42 AM [facility] MPV 11.0 7.0 - 11.0 FL LAB HEMETOLOGY METHOD 09/17/2024 7:42 AM [facility] NRBC 0.0 <1.0 % LAB HEMETOLOGY METHOD 09/17/2024 7:42 AM [facility] NRBC Absolute 0.00 <0.10 K/mcL LAB HEMETOLOGY METHOD 09/17/2024 7:42 AM [facility] Neutrophils Relative 48.3 % LAB HEMETOLOGY METHOD 09/17/2024 7:42 AM [facility] Lymphocytes Relative 27.9 % LAB HEMETOLOGY METHOD 09/17/2024 7:42 AM [facility] Monocytes Relative 15.6 % LAB HEMETOLOGY METHOD 09/17/2024 7:42 AM EDT [facility] Eosinophils Relative 7.5 % LAB HEMETOLOGY METHOD 09/17/2024 7:42 AM EDT [facility] Basophils Relative 0.7 % LAB HEMETOLOGY METHOD 09/17/2024 7:42 AM EDT [facility] Immature Granulocytes Relative 0.0 % LAB HEMETOLOGY METHOD 09/17/2024 7:42 AM EDT [facility] Neutrophils Absolute 1.42(L) 1.50 - 7.00 K/mcL LAB HEMETOLOGY METHOD 09/17/2024 7:42 AM EDT [facility] Lymphocytes Absolute 0.82(L) 1.00 - 5.00 K/mcL LAB HEMETOLOGY METHOD 09/17/2024 7[facility] Monocytes Absolute 0.46 0.20 - 1.00 K/mcL LAB HEMETOLOGY METHOD 09/17/2024 7:42 AM EDT [facility] Eosinophils Absolute 0.22 0.00 - 0.50 K/mcL LAB HEMETOLOGY METHOD 09/17/2024 7:42 AM [facility] Basophils Absolute 0.02 0.00 - 0.20 K/mcL LAB HEMETOLOGY METHOD 09/17/2024 7:42 AM EDT [facility] Immature Granulocytes Absolute 0.00 0.00 - 0.03 K/mcL LAB HEMETOLOGY METHOD 09/17/2024 7:42 AM T [facility] Blood Venous blood specimen / Unknown 09/17/2024 5:30 AM EDT 09/17/2024 6:43 AM EDT us Jeramie cShwartz MD LAB BLOOD ORDERABLES Final Resul t [facility] [address] [place] [address], [place] [phone] documented in this encounter Visit Diagnoses Diagnosis 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
--- OUTSIDE RECORDS SUMMARY | 2025-01-29 12:30 | XMS_ITS | Encounter Summary ---
Author Organization [facility] Address [address] [place] [address] Care Team Providers Care Electrician Substation Supervisor Name Role Phone Jeramie Schwartz MD Primary Care Provider [phone] Encounter Details Date Type Department Care Team (Late st Contact Info) Description 05/06/[address] [facility] - Main Lab [address] [place] [address] Jeramie Schwartz MD [address] [place] [address] Dr [address] [place], [place] Diffuse traumatic brain injury with loss [...] AM EST) WBC 3.2(L) 4.8 - 10.8 K/[facility] LAB HEMETOLOGY METHOD 05/06/2024 10:51 AM EST [facility] RBC 4.40(L) 4.50 - 5.50 M/mcL LAB HEMETOLOGY METHOD 05/06/2024 10:51 AM [facility] LAB Hemoglobin 11.0(L) 13.5 - 17.5 g/dL LAB HEMETOLOGY METHOD 05/06/2024 10:51 AM [facility] LAB Hematocrit 35.7(L) 42.0 - 54.0 % LAB HEMETOLOGY METHOD 05/06/2024 10:51 AM [facility] LAB MCV 81.7 79.0 - 98.0 FL LAB HEMETOLOGY METHOD 05/06/2024 10:51 AM [facility] LAB MCH 25.2(L) 27.0 - 32.0 pcg LAB HEMETOLOGY METHOD 05/06/2024 10:51 AM [facility] LAB MCHC 30.8(L) 32.0 - 37.0 g/dL LAB HEMETOLOGY METHOD 05/06/2024 10:51 AM [facility] LAB RDW 17.8(H) 11.0 - 15.0 % LAB HEMETOLOGY METHOD 05/06/2024 10:51 AM [facility] LAB Platelets 333 130 - 400 K/mcL LAB HEMETOLOGY METHOD 05/06/2024 10:51 AM [facility] LAB MPV 10.1 7.0 - 11.0 FL LAB HEMETOLOGY METHOD 05/06/2024 10:51 AM [facility] LAB NRBC 0.0 <1.0 % LAB HEMETOLOGY METHOD 05/06/2024 10:51 AM [facility] LAB NRBC Absolute 0.00 <0.10 K/mcL LAB HEMETOLOGY METHOD 05/06/2024 10:51 AM [facility] LAB Neutrophils Relative 40.9 % LAB HEMETOLOGY METHOD 05/06/2024 10:51 AM [facility] LAB Lymphocytes Relative 35.1 % LAB HEMETOLOGY METHOD 05/06/2024 10:51 AM [facility] LAB Monocytes Relative 13.9 % LAB HEMETOLOGY METHOD 05/06/2024 10:51 AM [facility] LAB Eosinophils Relative 9.2 % LAB HEMETOLOGY METHOD 05/06/2024 10:51 AM [facility] LAB Basophils Relative 0.6 % LAB HEMETOLOGY METHOD 05/06/2024 10:51 AM [facility] LAB Immature Granulocytes Relative 0.3 % LAB HEMETOLOGY METHOD 05/06/2024 10:51 AM [facility] LAB Neutrophils Absolute 1.29(L) 1.50 - 7.00 K/mcL LAB HEMETOLOGY METHOD 05/06/2024 10:51 AM [facility] LAB Lymphocytes Absolute 1.11 1.00 - 5.00 K/mcL LAB HEMETOLOGY METHOD 05/06/2024 10:51 AM [facility] LAB Monocytes Absolute 0.44 0.20 - 1.00 K/mcL LAB HEMETOLOGY METHOD 05/06/2024 10:51 AM [facility] LAB Eosinophils Absolute 0.29 0.00 - 0.50 K/mcL LAB HEMETOLOGY METHOD 05/06/2024 10:51 AM [facility] LAB Basophils Absolute 0.02 0.00 - 0.20 K/mcL LAB HEMETOLOGY METHOD 05/06/2024 10:51 AM [facility] LAB Immature Granulocytes Absolute 0.01 0.00 - 0.03 K/mcL LAB HEMETOLOGY METHOD 05/06/2024 10:51 AM [facility] LAB Blood Venous blood specimen / Unknown 05/06/2024 9:05 AM EST 05/06/2024 10:16 AM EST us Jeramie Schwartz MD LAB BLOOD ORDERABLES Final Resul t [facility] LAB [address] [place] [address], documented in this encounter Visit Diagnoses Diagnosis 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 unspecified duration, sequela (CMS/HCC V24) documented in this encounter Care Teams Electrician Substation Supervisor Relationship Specialty Start Date End Date Jeramie Schwartz MD [address] [place] [address] Dr [address] [place], [place] PCP - General Internal Medicine 06/02/24 documented as of this encounter
--- OUTSIDE RECORDS SUMMARY | 2025-01-29 12:30 | XMS_ITS | Encounter Summary ---
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 Social History Tobacco Use [...] GOLD Routine 10/07/2024 7:05 AM EDT 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 CBC WITH AUTO DIFFERENTIAL Routine 10/07/2024 7:05 AM EDT Other jail (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 CBC AND DIFFERENTIAL Routine 10/07/2024 7:05 AM EDT 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 documented in this encounter Results * (ABNORMAL) CBC auto differential (10/07/2024 7:05 AM EDT) [facility] Signature WBC 8.6 4.8 - 10.8 K/[facility] LAB HEMETOLOGY METHOD 10/07/2024 8:47 AM EDT [facility] LAB RBC 4.80 4.50 - 5.50 M/[facility] LAB HEMETOLOGY METHOD 10/07/2024 8:47 AM [facility] LAB Hemoglobin 12.4(L) 13.5 - 17.5 g/dL LAB HEMETOLOGY METHOD 10/07/2024 8:47 AM [facility] LAB Hematocrit 39.5(L) 42.0 - 54.0 % LAB HEMETOLOGY METHOD 10/07/2024 8:47 AM [facility] LAB MCV 82.5 79.0 - 98.0 FL LAB HEMETOLOGY METHOD 10/07/2024 8:47 AM [facility] LAB MCH 25.9(L) 27.0 - 32.0 pcg LAB HEMETOLOGY METHOD 10/07/2024 8:47 AM [facility] LAB MCHC 31.4(L) 32.0 - 37.0 g/dL LAB HEMETOLOGY METHOD 10/07/2024 8:47 AM [facility] LAB RDW 16.0(H) 11.0 - 15.0 % LAB HEMETOLOGY METHOD 10/07/2024 8:47 AM [facility] LAB Platelets 182 130 - 400 K/mcL LAB HEMETOLOGY METHOD 10/07/2024 8:47 AM [facility] LAB MPV LAB HEMETOLOGY METHOD 10/07/2024 8:47 AM [facility] LAB Comment:Not Measured NRBC 0.2 <1.0 % LAB HEMETOLOGY METHOD 10/07/2024 8:47 AM [facility] LAB NRBC Absolute 0.02 <0.10 K/mcL LAB HEMETOLOGY METHOD 10/07/2024 8:47 AM [facility] LAB Neutrophils Relative 90.9 % LAB HEMETOLOGY METHOD 10/07/2024 8:47 AM [facility] Lymphocytes Relative 4.1 % LAB HEMETOLOGY METHOD 10/07/2024 8:47 AM [facility] Monocytes Relative 4.2 % LAB HEMETOLOGY METHOD 10/07/2024 8:47 AM [facility] Eosinophils Relative 0.1 % LAB HEMETOLOGY METHOD 10/07/2024 8:47 AM [facility] Basophils Relative 0.2 % LAB HEMETOLOGY METHOD 10/07/2024 8:47 AM [facility] LAB Immature Granulocytes Relative 0.5 % LAB HEMETOLOGY METHOD 10/07/2024 8:47 AM [facility] LAB Neutrophils Absolute 7.79(H) 1.50 - 7.00 K/mcL LAB HEMETOLOGY METHOD 10/07/2024 8:47 AM [facility] LAB Lymphocytes Absolute 0.35(L) 1.00 - 5.00 K/mcL LAB HEMETOLOGY METHOD 10/07/2024 8:47 AM [facility] Monocytes Absolute 0.36 0.20 - 1.00 K/mcL LAB HEMETOLOGY METHOD 10/07/2024 8:47 AM [facility] Eosinophils Absolute 0.01 0.00 - 0.50 K/mcL LAB HEMETOLOGY METHOD 10/07/2024 8:47 AM [facility] Basophils Absolute 0.02 0.00 - 0.20 K/mcL LAB HEMETOLOGY METHOD 10/07/2024 8:47 AM [facility] LAB Immature Granulocytes Absolute 0.04(H) 0.00 - 0.03 K/mcL LAB HEMETOLOGY METHOD 10/07/2024 8:47 AM [facility] Blood Venous blood specimen / Unknown 10/07/2024 7:05 AM EDT 10/07/2024 8:02 AM EDT Jeramie Schwartz MD LAB BLOOD ORDERABLES Final Resul t [facility] [address] [place] [address], [place] [phone] * SST tube (10/07/2024 7:05 AM EDT) Extra Tube Hold for add-ons. 10/07/2024 10:01 AM EDT [facility] Comment:Auto resulted. 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
--- OUTSIDE RECORDS SUMMARY | 2025-01-29 12:30 | XMS_ITS | Encounter Summary ---
Author Organization [employer] [facility] Address [address] [place] [address] Care Team Providers Care Member Service Representative Name Role Phone Jeramie Schwartz MD Primary Care Provider Encounter Details Date Type Department Care Team (Late st Contact Info) Description 11/26/2024 Lab Requisition [facility] - Main Lab [address] [facility] [place] [address] Jeramie Schwartz MD [address] [place] [address] Dr [address] [place] Feeling of incomplete bladder emptying Social [...] % LAB [facility] % 24.0 % LAB HEMETOLOGY METHOD 11/26/2024 8:26 AM [facility] Reactive Lymphocyte 4.00 % LAB HEMETOLOGY METHOD 11/26/2024 8:26 AM [facility] Monocytes % 10.0 % LAB HEMETOLOGY METHOD 11/26/2024 8:26 AM [facility] Eosinophils % 2.0 % LAB HEMETOLOGY METHOD 11/26/2024 8:26 AM [facility] Basophils % 2.0 % LAB HEMETOLOGY METHOD 11/26/2024 8:26 AM [facility] Neutrophils Absolute Manual 1.33(L) 1.50 - 7.00 K/mcL LAB HEMETOLOGY METHOD 11/26/2024 8:26 AM [facility] Lymphocytes Absolute 0.55(L) 1.00 - 5.00 K/mcL LAB HEMETOLOGY METHOD 11/26/2024 8:26 AM [facility] Reactive Lymph Abs Manual 0.09(H) 0.00 - 0.00 lym LAB HEMETOLOGY METHOD 11/26/2024 8:26 AM [facility] Monocytes Absolute Manual 0.23 0.20 - 1.00 K/mcL LAB HEMETOLOGY METHOD 11/26/2024 8:26 AM [facility] Eosinophils Absolute Manual 0.05 0.00 - 0.50 K/mcL LAB HEMETOLOGY METHOD 11/26/2024 8:26 AM EDT [facility] Basophils Absolute Manual 0.05 0.00 - 0.20 K/mcL LAB HEMETOLOGY METHOD 11/26/2024 8:26 AM EDT [facility] Blood Venous blood specimen / Unknown 11/26/2024 6:20 AM EDT 11/26/2024 7:28 AM EDT us Jeramie Schwartz MD LAB BLOOD ORDERABLES Final Resul t Performing Organization Address [facility] Co de Phone Number [facility] [address] [place] [address], [place] [phone] * Pathology review, blood smear (11/26/2024 6:20 [...] correlation is recommended. 11/26/2024 9:40 AM EDT [facility] Blood Venous blood specimen / Unknown 11/26/2024 6:20 AM EDT 11/26/2024 7:28 AM EDT us Jeramie Schwartz MD LAB BLOOD ORDERABLES Final Resul t Performing Organization Address City/[facility]/ZIP Co de Phone Number [facility] [address] [place] [address], * (ABNORMAL) CBC auto differential (11/26/2024 6:20 AM EDT) [facility] WBC 2.3(L) 4.8 - 10.8 K/mcL LAB HEMETOLOGY METHOD 11/26/2024 8:26 AM [facility] RBC 5.00 4.50 - 5.50 M/mcL LAB HEMETOLOGY METHOD 11/26/2024 8:26 AM [facility] Hemoglobin 12.7(L) 13.5 - 17.5 g/dL LAB HEMETOLOGY METHOD 11/26/2024 8:26 AM [facility] Hematocrit 40.4(L) 42.0 - 54.0 % LAB HEMETOLOGY METHOD 11/26/2024 8:26 AM [facility] MCV 81.6 79.0 - 98.0 FL LAB HEMETOLOGY METHOD 11/26/2024 8:26 AM [facility] MCH 25.7(L) 27.0 - 32.0 pcg LAB HEMETOLOGY METHOD 11/26/2024 8:26 AM [facility] MCHC 31.4(L) 32.0 - 37.0 g/dL LAB HEMETOLOGY METHOD 11/26/2024 8:26 AM [facility] RDW 16.3(H) 11.0 - 15.0 % LAB HEMETOLOGY METHOD 11/26/2024 8:26 AM [facility] LAB Platelets 243 130 - 400 K/mcL LAB HEMETOLOGY METHOD 11/26/2024 8:26 AM [facility] LAB MPV 10.7 7.0 - 11.0 FL LAB HEMETOLOGY METHOD 11/26/2024 8:26 AM [facility] NRBC 0.0 <1.0 % LAB HEMETOLOGY METHOD 11/26/2024 8:26 AM EDT [facility] NRBC Absolute 0.00 <0.10 K/mcL LAB HEMETOLOGY METHOD 11/26/2024 8:26 AM EDT [facility] Blood Venous blood specimen / Unknown 11/26/2024 6:20 AM EDT 11/26/2024 7:28 AM EDT us Jeramie Schwartz MD LAB BLOOD ORDERABLES Final Resul t Performing Organization Address [facility]/ZIP Co de Phone Number [facility] [address] [place] [address], * Prostate specific antigen diagnostic (11/26/2024 6:20 AM EDT) PSA 0.64 0.00 - 4.00 ng/mL LAB CHEMISTRY METHOD 11/26/2024 10:50 AM EDT [facility] Blood Venous blood specimen / Unknown 11/26/2024 6:20 AM EDT 11/26/2024 7:28 AM EDT Narrative [facility] - 11/26/2024 10:50 AM EDT The Siemens Advia Centaur Chemiluminescent Immunoassay is used. Results obtained with different assay methods or kits cannot be used interchangeably. Results cannot be interpreted as absolute evidence of the presence or absence of malignant disease. us Jeramie Schwartz MD LAB BLOOD ORDERABLES Final Resul t [facility] [address] [place] [address], * BUN (11/26/2024 6:20 AM EDT) BUN 16 5 - 25 mg/dL LAB CHEMISTRY METHOD 11/26/2024 8:26 AM EDT [facility] Blood Venous blood specimen / Unknown 11/26/2024 6:20 AM EDT 11/26/2024 7:28 AM EDT us Jeramie Schwartz MD LAB BLOOD ORDERABLES Final Resul t Performing Organization Address [facility] de Phone Number [facility] [address] [place] [address], [place] [phone] * Creatinine (11/26/2024 6:20 AM EDT) Creatinine 1.02 0.70 - 1.30 mg/dL LAB CHEMISTRY METHOD 11/26/2024 8:26 AM EDT [facility] eGFR 80 >=60 mL/min/1. 73m2 LAB CHEMISTRY METHOD 11/26/2024 8:26 AM EDT [facility] Comment:Calculation based on the Chronic Kidney Disease Epidemiology Collaboration (CKD-EPI) equation refit without adjustment for race. Blood Venous blood specimen / Unknown 11/26/2024 6:20 AM EDT 11/26/2024 7:28 AM EDT us Jeramie Schwartz MD LAB BLOOD ORDERABLES Final Resul t Performing Organization Address [facility] de Phone Number [facility] [address] [place] [address], [place] [phone] documented in this encounter Visit Diagnoses Diagnosis Feeling of incomplete bladder emptying documented in this encounter Care Teams Member Service Representative Relationship Specialty Start Date End Date Jeramie Schwartz MD [address] [place] [address] Dr Janis Chaudhry [place] PCP - General Internal Medicine 06/02/24 documented as of this encounter
--- NOTE | 2025-01-29 12:31 | MHC.EDTECH ---
seizure pads placed, condom cath placed d/t incontinence, call gale within reach
--- NOTE | 2025-01-29 14:21 | PC.NURSE ---
Patient attempting to ambulate multiple times, shouting at staff. Vitals normal. Dr. Verde aware. Plan to discharge back to [facility]. Awaiting EMS. Imaging unremarkable.
--- NOTE | 2025-01-29 14:22 | PC.NURSE ---
Video medical equipment sales used, [place]oc[place] Creole speaking. Patient is agitated, explained plan to return to [facility]. Patient intermittently shouting. Offered the patient food, beverages, blanket, etc. Asked patient what he would like/needs, patient stated nothing , as translated by trenching machine operator. Seizure pads & precautions remain in place. Curtain open to be easily viewed from nurse's station until EMS arrives.
[2025-01-29 17:47] VITALS: BP 103/58; PULSE 80; RESP 18; TEMP 36.8; O2SAT 95
--- NOTE | 2025-01-29 17:47 | PC.NURSE ---
Attempted to call [facility] to give RN to RN report, but no one picked up. Attempted twice with no response. Picked up by EMS, en route with paperwork. IV access removed.
[2025-02-02 07:33] LABS: Levetiracetam Keppra 34.4 mcg/mL (6.0-46.0)
== END 2025-01-29 17:47 | disposition home or self-care (01) ==
PROVIDERS: Emergency Provider Emergency Medicine Emergency Medical Services
DX: G40.909 Epilepsy, unspecified, not intractable, without status epilepticus (principal); H57.89 Other specified disorders of eye and adnexa; E78.5 Hyperlipidemia, unspecified; Z86.718 Personal history of other venous thrombosis and embolism; Z87.820 Personal history of traumatic brain injury; E11.9 Type 2 diabetes mellitus without complications; I10 Essential (primary) hypertension; S00.83XA Contusion of other part of head, initial encounter; X58.XXXA Exposure to other specified factors, initial encounter; Y93.9 Activity, unspecified; Y92.9 Unspecified place or not applicable; Y99.9 Unspecified external cause status
CPT/HCPCS: 36415; 70450; 70486; 71045; 72125; 80048; 80177; 80179; 80307; 82140; 82947; 84484; 85025; 85610; 85730; 93005; 96374; 99284; J2250

== ENCOUNTER → 2025-01-29 09:53 | Outpatient (BNV) | payer MEDICARE, MEDICAID, SELFPAY | PROVIDERS: Emergency Provider Emergency Medicine Emergency Medical Services; Visit Provider Internal Medicine Cardiovascular Disease | DX: I49.3 Ventricular premature depolarization (principal) | CPT/HCPCS: 93010 ==

== ENCOUNTER → 2025-01-29 10:47 | Outpatient (BNV) | payer MEDICARE, MEDICAID, SELFPAY | PROVIDERS: Emergency Provider Emergency Medicine Emergency Medical Services; Visit Provider Radiology Diagnostic Radiology | DX: R22.0 Localized swelling, mass and lump, head (principal); R56.9 Unspecified convulsions | CPT/HCPCS: 70450; 70486 ==

== ENCOUNTER 2025-02-23 10:52 | Outpatient (REF) | payer MEDICARE, MEDICAID, SELFPAY ==
--- NOTE | ~2025-02-23 | FL_ITS ---
EXAMINATION: XR BARIUM ENEMA CLINICAL INFORMATION: Disease of the anus and rectum. COMPARISON: CT abdomen and pelvis without IV contrast 08/23/2024 TECHNIQUE: A KUB was obtained. Subsequently thick barium was administered through a balloon inflated rectal catheter under fluoroscopy. Air insufflation was performed as the barium contrast reached the mid transverse colon. This solitary postevacuation image was obtained. Patient tolerated procedure extremely well. FINDINGS: On KUB the bowel gas pattern is nonspecific. Following retrograde administration of thick barium under fluoroscopy there is normal passage of contrast from the rectum, sigmoid, transverse and ascending colon and the ileocecal junction. No obstructive or constrictive lesion seen. Few scattered diverticuli are visualized in the colon no abnormality was seen in the rectum or sigmoid colon the visualized images. There is mild to moderate stool in the sigmoid colon . On postevacuation images there is significant emptying of colon with mild retention of barium in the right colon. Appendix is visualized. No reflux was seen into the terminal ileum. FLUOROSCOPY TIME: 3.07 seconds DOSE AREA PRODUCT: 193.7 uGy-m2 (microgray-meter squared) FL/FL barium enema IMPRESSION: Unremarkable double contrast barium enema exam. Appendix is normal. No reflux was seen in the terminal ileum. Electronically signed by: Olvin Maddox MD 02/23/2025 01:21 PM EDT
== END 2025-02-23 10:53 | disposition home or self-care (01) ==
LOC: HO.XRAY 10:52
PROVIDERS: Visit Provider Nurse Practitioner Family
DX: K62.9 Disease of anus and rectum, unspecified (principal)
CPT/HCPCS: 74270

== ENCOUNTER → 2025-02-23 10:53 | Outpatient (BNV) | payer MEDICARE, MEDICAID, SELFPAY | PROVIDERS: Visit Provider Radiology Diagnostic Radiology | DX: K62.9 Disease of anus and rectum, unspecified (principal) | CPT/HCPCS: 74270 ==

== ENCOUNTER 2025-02-24 10:12 | Outpatient (AMB) | payer MEDICARE, MEDICAID, SELFPAY ==
[2025-02-24 10:15] VITALS: BP 120/70; PULSE 60; O2SAT 95; BMI 26.4
--- NOTE | 2025-02-24 10:15 | A.OFFVIS_ITS ---
Vital Signs 02/24/25 10:15 Height 5 ft 9 in Weight 178 lb 9.191 oz BMI 26.4 BP 120/70 Blood Pressure Location Lt brachial Position Sitting Pulse 60 Pulse Source Pulse Oximeter Pulse Oximetry (%) 95 Oxygen Delivery Method Room Air Intake Visit Reasons: 3m f/u s/p CT Rate Examiner Required: No Accompanied by: Other Relationship Allergies No Known Drug Allergies Allergy (Unknown, Verified 02/24/25 10:20) none HPI Comments Details: The patient is a 69-year-old gentleman from [facility], he does have a limited communication and therefore the information was gathered from the chart and also the staff with him. Apparently the patient did have some abdominal discomfort back in October 2024. He was taken to the ER where he had a CT scan of the abdomen. The CT scan of the abdomen demonstrated lung windows with what appeared to be an opacity airspace disease in the right lower lobe. Also some pleural thickening. Looks like an infection although with limited lung windows we can not really assess the full area. Although it appears to be an infection. She still has a cough and does have some crackles at the right base. The patient does have issues with mentation and I am concerned about possibility of aspiration pneumonia or chronic aspiration issues. Will going to go ahead and start him on some antibiotics in addition to start nebulizer treatments twice a day to help him with mucus clearance. The patient was also provide him incentive spirometer and he was able to do it along with the assistance in direction. This will help open up the lungs further. In the meantime we are going to request a formal CT scan of the chest after completing the antibiotics to address the area. The patient will return to review the CT scan together. In the meantime he will continue using the nebulizer treatments twice a day and continue with the incentive spirometer. 02/24/2025 the patient is here for pulmonary follow-up visit. Overall the patient has been doing okay. He was scheduled for CT scan of the chest but the patient was reluctant to do it and was irritated at the time so therefore it had to be canceled. Now is awaiting to be rescheduled. The patient feels well. Denies any chest complaints. Denies any shortness of breath although very limited history of present illness due to his ongoing mental illness. His respiratory exam is reassuring. He will continue with the nebulizer therapy as needed and needs completed the antibiotics. Will follow-up in 6 months. if any significant findings in the CAT scan once he is able to do it then I will follow-up with the patient had an earlier time. [facility] Medical History (Updated 02/24/25 @ 18:00 by Pablo Garcia MD) Lung density on x-ray Pancreatic cyst Psychotic disorder Hyperlipidemia DVT (deep venous thrombosis) Epilepsy Diabetes mellitus Hypertension TBI (traumatic brain injury) Social History Household Members: Other Housing: Half-Way Do you presently have visiting nurse or other home services: No Patient Tobacco Use Status: Tobacco use Unknown Advance Directives Date on File: 08/23/23 service: No Review of Systems Const Unobtainable due to mental condition and Unobtainable due to mental status Physical Exam Vital Signs: Last Vital Signs Pulse 60 02/24/25 10:15 BP 120/70 02/24/25 10:15 Pulse Ox 95 02/24/25 10:15 Oxygen Delivery Method Room Air 02/24/25 10:15 BMI result Body Mass Index 26.4 Const General: comfortable HEENT Head: Yes normocephalic Neck Neck: Yes supple Chest Chest palpation & inspection: normal inspection of the chest Resp Effort & Inspection: tachypneic Auscultation: diminished lung sounds Cardio Heart sounds: S1 normal heart sound present and S2 normal heart sound present GI Palpation (GI): Soft to palpation Skin General skin exam: no rashes or lesions noted Extrem General: Yes no clubbing, cyanosis or edema Assessment & Plan Assessment & Plan (1) Pneumonia of both lower lobes: Comment: clinically better Code(s): J18.9 - Pneumonia, unspecified organism Category: Medical Qualifiers: Pneumonia type: due to unspecified organism Qualified Code(s): J18.9 - Pneumonia, unspecified organism (2) Lung density on x-ray: Code(s): J98.4 - Other disorders of lung Category: Medical Plan Awaiting CT chest Nebs BID as needed sleep wih HOB elevated monitor for any aspiration events CT chest F/U in 6 months Coding Level of Care Code Est Pt Level 4 (32243) Diagnoses Pneumonia of both lower lobes J18.9 Pneumonia type: due to unspecified organism Lung density on x-ray J98.4 Time Spent (min) 16
--- OUTSIDE RECORDS SUMMARY | 2025-02-24 12:33 | XMS_ITS | Encounter Summary ---
[facility] Address [address] [place] [address] Care Team Providers Care Photovoltaic Panel Installer Name Role Phone Jeramie Schwartz MD Primary Care Provider Encounter Details Date Type Department Care Team (Late st Contact Info) Description 09/22/2024 Lab Requisition [facility] - Main Lab [address] [facility] [place] [address] Jeramie Schwartz MD [address] [place] [address] Dr [address] [place] Other tank terminal gauger (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 [...] 3:05 PM EDT Performed at: 01 - [employer] [address] [place] [address] [id number] [employer] Business Analyst: Michelle Jimenez [facility], Phone: [phone] us Jeramie Schwartz MD LAB BLOOD ORDERABLES Final Resul t [facility] documented in this encounter Visit Diagnoses Diagnosis Other tank terminal gauger (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 documented in this encounter Care Teams Photovoltaic Panel Installer Relationship Specialty Start Date End Date Jeramie Schwartz MD [address] [place] [address] Dr [address] MARS Chaudhry PCP - General Internal Medicine 06/02/24 documented as of this encounter
--- OUTSIDE RECORDS SUMMARY | 2025-02-24 12:33 | XMS_ITS | Encounter Summary ---
Author Organization [facility] Address [address] [place] [address] Care Team Providers Care Field Artillery Operations Specialist Name Role Phone Jeramie Schwartz MD Primary Care Provider Encounter Details Date Type Department Care Team (Late st Contact Info) Description 10/21/2024 Lab Requisition [facility] - Main Lab [address] [facility] [place] [address] Jeramie Schwartz MD [address] [place] [address] Dr [address] [place] Encounter for therapeutic drug level monitoring Social [...] K/mcL LAB HEMETOLOGY METHOD 10/21/2024 7:52 AM [facility] LAB RBC 4.80 4.50 - 5.50 M/mcL LAB HEMETOLOGY METHOD 10/21/2024 7:52 AM [facility] LAB Hemoglobin 12.5(L) 13.5 - 17.5 g/dL LAB HEMETOLOGY METHOD 10/21/2024 7:52 AM [facility] LAB Hematocrit 39.9(L) 42.0 - 54.0 % LAB HEMETOLOGY METHOD 10/21/2024 7:52 AM [facility] LAB MCV 82.4 79.0 - 98.0 FL LAB HEMETOLOGY METHOD 10/21/2024 7:52 AM [facility] LAB MCH 25.8(L) 27.0 - 32.0 pcg LAB HEMETOLOGY METHOD 10/21/2024 7:52 AM [facility] LAB MCHC 31.3(L) 32.0 - 37.0 g/dL LAB HEMETOLOGY METHOD 10/21/2024 7:52 AM [facility] LAB RDW 16.3(H) 11.0 - 15.0 % LAB HEMETOLOGY METHOD 10/21/2024 7:52 AM [facility] LAB Platelets 212 130 - 400 K/[facility] LAB HEMETOLOGY METHOD 10/21/2024 7:52 AM [facility] LAB MPV 11.9(H) 7.0 - 11.0 FL LAB HEMETOLOGY METHOD 10/21/2024 7:52 AM [facility] LAB NRBC 0.0 <1.0 % LAB HEMETOLOGY METHOD 10/21/2024 7:52 AM [facility] LAB NRBC Absolute 0.00 <0.10 K/[facility] LAB HEMETOLOGY METHOD 10/21/2024 7:52 AM [facility] LAB Neutrophils Relative 41.5 % LAB HEMETOLOGY METHOD 10/21/2024 7:52 AM [facility] LAB Lymphocytes Relative 35.4 % LAB HEMETOLOGY METHOD 10/21/2024 7:52 AM [facility] LAB Monocytes Relative 16.5 % LAB HEMETOLOGY METHOD 10/21/2024 7:52 AM [facility] LAB Eosinophils Relative 5.4 % LAB HEMETOLOGY METHOD 10/21/2024 7:52 AM [facility] LAB Basophils Relative 1.2 % LAB HEMETOLOGY METHOD 10/21/2024 7:52 AM [facility] LAB Immature Granulocytes Relative 0.0 % LAB HEMETOLOGY METHOD 10/21/2024 7:52 AM [facility] LAB Neutrophils Absolute 1.08(L) 1.50 - 7.00 K/mcL LAB HEMETOLOGY METHOD 10/21/2024 7:52 AM [facility] LAB Lymphocytes Absolute 0.92(L) 1.00 - 5.00 K/mcL LAB HEMETOLOGY METHOD 10/21/2024 7:52 AM [facility] LAB Monocytes Absolute 0.43 0.20 - 1.00 K/mcL LAB HEMETOLOGY METHOD 10/21/2024 7:52 AM [facility] LAB Eosinophils Absolute 0.14 0.00 - 0.50 K/mcL LAB HEMETOLOGY METHOD 10/21/2024 7:52 AM [facility] LAB Basophils Absolute 0.03 0.00 - 0.20 K/mcL LAB HEMETOLOGY METHOD 10/21/2024 7:52 AM [facility] LAB Immature Granulocytes Absolute 0.00 0.00 - 0.03 K/mcL LAB HEMETOLOGY METHOD 10/21/2024 7:52 AM [facility] Blood Venous blood specimen / Unknown 10/21/2024 6:20 AM EDT 10/21/2024 7:33 AM EDT us Jeramie Schwartz MD LAB BLOOD ORDERABLES Final Resul t Performing Organization Address [facility] Co de Phone Number [facility] [address] [place] [address], * Pregabalin (10/21/2024 6:20 AM EDT) Pregabalin [...] - 10/23/2024 4:05 PM EDT Performed at: [facility] [address] [place] [id number] Rough Patcher: Michelle Jimenez [facility], Phone: [phone] us Jeramie Schwartz MD LAB BLOOD ORDERABLES Final Resul t Performing Organization Address [facility] Co de Phone Number [email or web address] * Levetiracetam [...] developed and the performance characteristics determined by [facility]. This confirmation testing has not been cleared or approved by the FDA. The laboratory is regulated under CLIA as qualified to perform high-complexity testing. This test is used for patient testing purposes. It should not be regarded as investigational or for research. Test performed at [facility], [address] , [place] [address] Marcy Abarca MD, PhD - Transportation Associate Blood Venous blood specimen / Unknown 10/21/2024 6:20 AM EDT 10/21/2024 7:33 AM EDT us Jeramie Schwartz MD LAB BLOOD ORDERABLES Final Resul t [facility] [address] [place] [address] * (ABNORMAL) Comprehensive metabolic panel (10/21/2024 6:20 AM EDT) Sodium 141 133 - 145 mmol/L LAB CHEMISTRY METHOD 10/21/2024 8:24 AM [facility] Potassium 4.0 3.5 - 5.5 mmol/L LAB CHEMISTRY METHOD 10/21/2024 8:24 AM [facility] Chloride 107 96 - 110 mmol/L LAB CHEMISTRY METHOD 10/21/2024 8:24 AM [facility] CO2 30 21 - 32 mmol/L LAB CHEMISTRY METHOD 10/21/2024 8:24 AM [facility] Anion Gap 4 3 - 11 LAB CHEMISTRY METHOD 10/21/2024 8:24 AM [facility] Glucose 87 70 - 100 mg/dL LAB CHEMISTRY METHOD 10/21/2024 8:24 AM [facility] BUN 13 5 - 25 mg/dL LAB CHEMISTRY METHOD 10/21/2024 8:24 AM [facility] Creatinine 0.97 0.70 - 1.30 mg/dL LAB CHEMISTRY METHOD 10/21/2024 8:24 AM [facility] LAB eGFR 85 >=60 mL/min/1. 73m2 LAB CHEMISTRY METHOD 10/21/2024 8:24 AM [facility] LAB Comment:Calculation based on the Chronic Kidney Disease Epidemiology Collaboration (CKD-EPI) equation refit without adjustment for race. BUN/Creatinine Ratio 13.4 LAB CHEMISTRY METHOD 10/21/2024 8:24 AM T [facility] LAB Calcium 8.9 8.5 - 10.5 mg/dL LAB CHEMISTRY METHOD 10/21/2024 8:24 AM [facility] AST (SGOT) 13 10 - 42 unit/L LAB CHEMISTRY METHOD 10/21/2024 8:24 AM [facility] ALT (SGPT) 17 10 - 60 unit/L LAB CHEMISTRY METHOD 10/21/2024 8:24 AM [facility] Alkaline Phosphatase 94 42 - 121 unit/L LAB CHEMISTRY METHOD 10/21/2024 8:24 AM [facility] Total Protein 6.5 6.0 - 8.0 g/dL LAB CHEMISTRY METHOD 10/21/2024 8:24 AM [facility] Albumin 2.8(L) 3.2 - 5.0 g/dL LAB CHEMISTRY METHOD 10/21/2024 8:24 AM [facility] Total Bilirubin 0.3 0.0 - 1.4 mg/dL LAB CHEMISTRY METHOD 10/21/2024 8:24 AM [facility] Blood Venous blood specimen / Unknown 10/21/2024 6:20 AM EDT 10/21/2024 7:33 AM EDT us Jeramie Schwartz MD LAB BLOOD ORDERABLES Final Resul t [facility] [address] [place] [address], documented in this encounter Visit Diagnoses Diagnosis Encounter for therapeutic drug level monitoring documented in this encounter Care Teams Field Artillery Operations Specialist Relationship Specialty Start Date End Date Jeramie Schwartz MD [address] [facility] [address] MARS Chaudhry PCP - General Internal Medicine 06/02/24 documented as of this encounter
--- OUTSIDE RECORDS SUMMARY | 2025-02-24 12:33 | XMS_ITS | Encounter Summary ---
Author Organization [email or web address] Address [address] [place] [address] Care Team Providers Care Government Instructor Name Role Phone Jeramie Schwartz MD Primary Care Provider [phone] Encounter Details Date Type Department Care Team (Latest Contact Info) Description 07/07/2024 Lab Requisition [facility] - Main Lab [address] [place] [address] Jeramie Schwartz MD [address] [place] [address] [address] [place], [place] Diffuse traumatic brain injury with loss [...] LAB CHEMISTRY METHOD 07/07/2024 2:30 PM EST [facility] Mean Bld Glu Estim. 108 mg/dL LAB CHEMISTRY METHOD 07/07/2024 2:30 PM EST [facility] Blood Venous blood specimen / Unknown 07/07/2024 6:53 AM EST 07/07/2024 8:36 AM EST us Jeramie Schwartz MD LAB BLOOD ORDERABLES Final Resul t [facility] [address] [place] [address], * (ABNORMAL) CBC auto differential (07/07/2024 6:53 AM EST) WBC 4.7(L) 4.8 - 10.8 K/mcL LAB HEMETOLOGY METHOD 07/07/2024 9:44 AM EST [facility] RBC 4.00(L) 4.50 - 5.50 M/mcL LAB HEMETOLOGY METHOD 07/07/2024 9:44 AM EST [facility] Hemoglobin 10.4(L) 13.5 - 17.5 [...] LAB HEMETOLOGY METHOD 07/07/2024 9:44 AM EST [facility] Eosinophils Absolute 0.21 0.00 - [...] LAB BLOOD ORDERABLES Final Resul t [facility] [address] [place] [address], documented in this encounter Visit Diagnoses Diagnosis 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 unspecified duration, sequela ([facility] V24) Acute embolism and thrombosis of unspecified deep veins of right lower extremity ([facility] V24, [facility] V28) Hyperlipidemia, unspecified Vitamin D deficiency, unspecified Type 2 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, left eye ([facility] V24, [facility] V28) documented in this encounter Care Teams Government Instructor Relationship Specialty Start Date End Date Jeramie Schwartz MD [address] [place] [address] [address] [place] PCP - General Internal Medicine 06/02/24 documented as of this encounter
--- OUTSIDE RECORDS SUMMARY | 2025-02-24 12:33 | XMS_ITS | Clinical Summary ---
Author Organization 299 [facility] Address [address] [place] [address] Phone Care Team Providers Care 3D Animator Name Role Phone Jeramie Schwartz MD Primary Care Provider [phone] Encounters Date Type Department Care Team Description 02/24/[address] [facility] [address] [place] [phone] Jeramie Schwartz MD Other fecal abnormalities; Vitamin D deficiency, unspecified; Hyperlipidemia, unspecified; Encounter for screening for other suspected endocrine disorder 02/01/[address] [facility] [address] [place] [phone] Jeramie Schwartz MD Encounter for therapeutic drug level monitoring 01/14/[address] [facility] [address] [place] [phone] Jeramie Schwartz MD Type 2 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, left eye (CMS/HCC V24, CMS/HCC V28) 12/14/[address] [facility] [address] [place] [phone] Jeramie Schwartz MD Other fecal abnormalities 11/26/[address] [facility] [address] [place] [phone] Jeramie Schwartz MD Feeling of incomplete bladder emptying from Last 3 Months Social History Tobacco [...] Years (1 of 2 - PCV) 08/09/1974 RSV Immunization Adult Patients (1 - Risk 50-74 years 1-dose series) 08/09/2005 Zoster Vaccines (1 of 2) 08/09/2005 Abdominal Aortic Aneurysm (AAA) Screen 05/30/2023 Cholesterol Screening (Lipid Panel) 05/30/2023 02/24/2025 Falls Risk Assessment 05/30/2023 Hepatitis C Screening 05/30/2023 Medicare Annual Wellness Visit 05/30/2023 Social Influencers of Health Screening 05/30/2023 Depression Screening 05/06/2024 Diabetes: Annual Urine Albumin-Creatinine Ratio (uACR) 07/09/2024 COVID-19 Vaccine ( - season) 2025 Influenza Vaccine (#1) 2025 Diabetes: [...] Procedure Name Priority Date/Time Associated Diagnosis Comments VITAMIN D 25 HYDROXY Routine 02/24/2025 6:50 AM EDT Other fecal abnormalities Vitamin D deficiency, unspecified Hyperlipidemia, unspecified Encounter for screening for other suspected endocrine disorder CBC WITH AUTO DIFFERENTIAL Routine 02/24/2025 6:50 AM EDT Other fecal abnormalities Vitamin D deficiency, unspecified Hyperlipidemia, unspecified Encounter for screening for other suspected endocrine disorder THYROID STIMULATING HORMONE Routine 02/24/2025 6:50 AM EDT Other fecal abnormalities Vitamin D deficiency, unspecified Hyperlipidemia, unspecified Encounter for screening for other suspected endocrine disorder CBC AND DIFFERENTIAL Routine 02/24/2025 6:50 AM EDT Other fecal abnormalities Vitamin D deficiency, unspecified Hyperlipidemia, unspecified Encounter for screening for other suspected endocrine disorder LIPID PANEL WITH REFLEX TO DIRECT LDL Routine 02/24/2025 6:50 AM EDT Other fecal abnormalities Vitamin D deficiency, unspecified Hyperlipidemia, unspecified Encounter for screening for other suspected endocrine disorder LEVETIRACETAM LEVEL Routine 02/01/2025 7 :00 AM EDT Encounter for therapeutic drug level monitoring PREGABALIN Routine 02/01/2025 7:00 AM EDT Encounter for therapeutic drug level monitoring CBC WITH AUTO DIFFERENTIAL Routine 01/14/2025 6:33 [...] diabetic retinopathy with macular edema, left eye ([facility] V24, [facility] V28) CBC WITH AUTO DIFFERENTIAL Routine 12/14/2024 [...] AM EDT Feeling of incomplete bladder emptying OCCULT BLOOD STOOL, GUAIAC Routine 09/04/2024 10:45 AM EDT Melena from Last 3 Months or Most Recently Relevant to Health Maintenance Results * (ABNORMAL) Lipid panel with reflex to direct LDL (02/24/2025 6:50 AM EDT) Cholesterol 174 0 - 200 mg/dL LAB CHEMISTRY METHOD 02/24/2025 10:[address] [facility] Triglycerides 111 0 - 150 mg/dL LAB CHEMISTRY METHOD 02/24/2025 10:[address] [facility] HDL 36(L) >=40 mg/dL LAB CHEMISTRY METHOD 02/24/2025 10:[address] [facility] LDL Calculated 116(H) 0 - 100 mg/dL LAB CHEMISTRY METHOD 02/24/2025 10:[address] [facility] Comment:Estimated LDL Calcul ated using equation: Total cholesterol - HDL cholesterol - (Triglycerides/5) VLDL Cholesterol Marcus 22.2 mg/dL LAB CHEMISTRY METHOD 02/24/2025 10:[address] [facility] Non HDL Chol. (LDL+VLDL) 138 <145 mg/dL LAB CHEMISTRY METHOD 02/24/2025 10:[address] [facility] Chol/HDL Ratio 4.8(H) 0.0 - 4.4 LAB CHEMISTRY METHOD 02/24/2025 10:38 AM [facility] Blood Venous blood specimen / Unknown 02/24/2025 6:50 AM EDT 02/24/2025 7:45 AM EDT us Jeramie Schwartz MD LAB BLOOD ORDERABLES Final Resul t [facility] [address] [place] [address], * (ABNORMAL) CBC auto differential (02/24/2025 6:50 AM EDT) Only the most recent of4 resultswithin the time period is included. WBC 4.5(L) 4.8 - 10.8 K/mcL LAB HEMETOLOGY METHOD 02/24/2025 8:[address] [facility] RBC 4.80 4.50 - 5.50 M/[facility] LAB HEMETOLOGY METHOD 02/24/2025 8:[address] [facility] Hemoglobin 12.6(L) 13.5 - 17.5 g/dL LAB HEMETOLOGY METHOD 02/24/2025 8:[address] [facility] Hematocrit 39.1(L) 42.0 - 54.0 % LAB HEMETOLOGY METHOD 02/24/2025 8:20 AM [facility] MCV 81.8 79.0 - 98.0 FL LAB HEMETOLOGY METHOD 02/24/2025 8:20 AM [facility] MCH 26.4(L) 27.0 - 32.0 pcg LAB HEMETOLOGY METHOD 02/24/2025 8:20 AM [facility] MCHC 32.2 32.0 - 37.0 g/dL LAB HEMETOLOGY METHOD 02/24/2025 8:20 AM [facility] RDW 15.7(H) 11.0 - 15.0 % LAB HEMETOLOGY METHOD 02/24/2025 8:20 AM [facility] Platelets 213 130 - 400 K/mcL LAB HEMETOLOGY METHOD 02/24/2025 8:20 AM [facility] MPV 10.1 7.0 - 11.0 FL LAB HEMETOLOGY METHOD 02/24/2025 8:20 AM [facility] NRBC 0.0 <1.0 % LAB HEMETOLOGY METHOD 02/24/2025 8:20 AM [facility] NRBC Absolute 0.00 <0.10 K/mcL LAB HEMETOLOGY METHOD 02/24/2025 8:20 AM [facility] Neutrophils Relative 73.3 % LAB HEMETOLOGY METHOD 02/24/2025 8:20 AM [facility] Lymphocytes Relative 18.8 % LAB HEMETOLOGY METHOD 02/24/2025 8:20 AM [facility] Monocytes Relative 6.3 % LAB HEMETOLOGY METHOD 02/24/2025 8:20 AM [facility] Eosinophils Relative 0.7 % LAB HEMETOLOGY METHOD 02/24/2025 8:[address] [facility] Basophils Relative 0.7 % LAB HEMETOLOGY METHOD 02/24/2025 8:[address] [facility] Immature Granulocytes Relative 0.2 % LAB HEMETOLOGY METHOD 02/24/2025 8:[address] [facility] Neutrophils Absolute 3.29 1.50 - 7.00 K/mcL LAB HEMETOLOGY METHOD 02/24/2025 8:[address] [facility] Lymphocytes Absolute 0.84(L) 1.00 - 5.00 K/mcL LAB HEMETOLOGY METHOD 02/24/2025 8:[address] [facility] Monocytes Absolute 0.28 0.20 - 1.00 K/mcL LAB [facility]EM[facility]OLOGY [facility] Eosin[facility] Absolute 0.03 0.00 - 0.50 K/mcL LAB HEMETOLOGY METHOD 02/24/2025 8:[address] [facility] Basophils Absolute 0.03 0.00 - 0.20 K/mcL LAB [facility]OLOGY [facility] Immature Granulocytes Absolute 0.01 0.00 - 0.03 K/mcL LAB HEMETOLOGY METHOD 02/24/2025 8:20 AM [facility] Blood Venous blood specimen / Unknown 02/24/2025 6:50 AM EDT 02/24/2025 7:45 AM EDT us Jeramie Schwartz MD LAB BLOOD ORDERABLES Final Resul t [facility] [address] [place] [address], * Vitamin D 25 hydroxy (02/24/2025 6:50 AM EDT) Vit D, 25-Hydroxy 63.1 30.0 - 80.0 ng/mL LAB CHEMISTRY METHOD 02/24/2025 12:[address] [facility] Blood Venous blood specimen / Unknown 02/24/2025 6:50 AM EDT 02/24/2025 11:04 AM EDT us Jeramie Schwartz MD LAB BLOOD ORDERABLES Final Resul t Performing Organization Address [facility]/ZIP Co de Phone Number [facility] [address] [place] [address], [place] [phone] * Thyroid stimulating hormone (02/24/2025 6:50 AM EDT) TSH 2.29 0.40 - 4.00 mcIU/mL LAB CHEMISTRY METHOD 02/24/2025 12:[address] [facility] Blood Venous blood specimen / Unknown 02/24/2025 6:50 AM EDT 02/24/2025 7:45 AM EDT us Jeramie Schwartz MD LAB BLOOD ORDERABLES Final Resul t Performing Organization Address [facility] de Phone Number [facility] [address] [place] [address], [place] [phone] * Pregabalin (02/01/2025 7:00 AM EDT) Pregabalin 6.9 ug/mL 02/03/2025 1:05 PM EDT [facility] Comment: Therapeutic and toxic ranges have not been established. Expected steady state pregabalin concentrations in patients taking recommended daily dosages: up to 10 ug/mL. This test was developed and its performance characteristics determined by [facility]. It has not been cleared or approved by the Food and Drug Administration. Blood Venous blood specimen / Unknown 02/01/2025 7:00 AM EDT 02/01/2025 7:55 AM EDT Narrative [facility] - 02/03/2025 1:05 PM EDT Performed at: 01 - [employer] [address] [place] [address] [phone] Field Representative/Health Education: Michelle Jimenez [facility], Phone: [phone] us Jeramie Schwartz MD LAB BLOOD ORDERABLES Final Resul t Performing Organization Address [facility] Co de Phone Number [facility] * Levetiracetam level (02/01/2025 7:00 AM EDT) Levetiracetam 46.4 3.0 - 60.0 ug/mL 02/03/2025 9:06 AM EDT [facility] Comment: Steady state trough serum or plasma levels following doses of 1000 to 3000 mg/Day: 3 to 37 ug/mL. The same dosage regimen will typically result in peak levels of 10 to 60 ug/mL, at approximately 1.5 hours post dose. If applicable, any drug confirmation testing reported here was developed and the performance characteristics determined by [facility]. This confirmation testing has not been cleared or approved by the FDA. The laboratory is regulated under CLIA as qualified to perform high-complexity testing. This test is used for patient testing purposes. It should not be regarded as investigational or for research. Test performed at [facility], [address] , [place] [address] Marcy Abarca MD, PhD - Fixing Machine Operator Blood Venous blood specimen / Unknown 02/01/2025 7:00 AM EDT 02/01/2025 7:55 AM EDT us Jeramie Schwartz MD LAB BLOOD ORDERABLES Final Resul t Performing Organization Address [facility]/ZIP Co de Phone Number [facility] [address] [place] [address] * Hemoglobin A1c (01/14/2025 6:33 AM EDT) Hemoglobin A1C 5.9 <6.5 % LAB CHEMISTRY METHOD 01/14/2025 11:[address] [facility] Mean Bld Glu Estim. 123 mg/dL LAB CHEMISTRY METHOD 01/14/2025 11:10 AM [facility] Blood Venous blood specimen / Unknown 01/14/2025 6:33 AM EDT 01/14/2025 7:58 AM EDT Jeramie Schwartz MD LAB BLOOD ORDERABLES Final Resul t [facility] [address] [place] [address], * (ABNORMAL) Manual differential (11/26/2024 6:20 AM EDT) Neutrophils % 58.0 % LAB HEMETOLOGY METHOD 11/26/2024 8:26 AM [facility] Lymphocytes % 24.0 % LAB HEMETOLOGY METHOD 11/26/2024 8:26 AM [facility] Reactive Lymphocyte 4.00 % LAB HEMETOLOGY METHOD 11/26/2024 8:26 AM [facility] Monocytes % 10.0 % LAB HEMETOLOGY METHOD 11/26/2024 8:26 AM [facility] Eosinophils % 2.0 % LAB HEMETOLOGY METHOD 11/26/2024 8:26 AM [facility] Basophils % 2.0 % LAB HEMETOLOGY METHOD 11/26/2024 8:26 AM [facility] Neutrophils Absolute Manual 1.33(L) 1.50 - 7.00 K/mcL LAB HEMETOLOGY METHOD 11/26/2024 8:26 AM [facility] Lymphocytes Absolute 0.55(L) 1.00 - 5.00 K/mcL LAB HEMETOLOGY METHOD 11/26/2024 8:26 AM [facility] Reactive Lymph Abs Manual 0.09(H) 0.00 - 0.00 lym LAB HEMETOLOGY METHOD 11/26/2024 8:26 AM [facility] Monocytes Absolute Manual 0.23 0.20 - 1.00 K/mcL LAB HEMETOLOGY METHOD 11/26/2024 8:[address] [facility] Eosinophils Absolute Manual 0.05 0.00 - 0.50 K/mcL LAB HEMETOLOGY METHOD 11/26/2024 8:[address] [facility] Basophils Absolute Manual 0.05 0.00 - 0.20 K/mcL LAB HEMETOLOGY METHOD 11/26/2024 8:[address] [facility] Blood Venous blood specimen / Unknown 11/26/2024 6:20 AM EDT 11/26/2024 7:28 AM EDT us Jeramie Schwartz MD LAB BLOOD ORDERABLES Final Resul t [facility] [address] [place] [address], [place] [phone] * Pathology review, blood smear (11/26/2024 6:20 [...] correlation is recommended. 11/26/2024 9:[address] [facility] Blood Venous blood specimen / Unknown 11/26/2024 6:20 AM EDT 11/26/2024 7:28 AM EDT us Jeramie Schwartz MD LAB BLOOD ORDERABLES Final Resul t Performing Organization Address [facility] de Phone Number [facility] [address] [place] [address], * Prostate specific antigen diagnostic (11/26/2024 6:20 AM EDT) PSA 0.64 0.00 - 4.00 ng/mL LAB CHEMISTRY METHOD 11/26/2024 10:[address] [facility] Blood Venous blood specimen / Unknown 11/26/2024 6:20 AM EDT 11/26/2024 7:[address] [facility] - 11/26/2024 10:50 AM EDT The Siemens Advia Centaur Chemiluminescent Immunoassay is used. Results obtained with different assay methods or kits cannot be used interchangeably. Results cannot be interpreted as absolute evidence of the presence or absence of malignant disease. us Jeramie Schwartz MD LAB BLOOD ORDERABLES Final Resul t Performing Organization Address [facility] de Phone Number [facility] [address] [place] [address], * Creatinine (11/26/2024 6:20 AM EDT) Creatinine 1.02 0.70 - 1.30 mg/dL LAB CHEMISTRY METHOD 11/26/2024 8:[address] [facility] eGFR 80 >=60 mL/min/1. 73m2 LAB CHEMISTRY METHOD 11/26/2024 8:[address] [facility] Comment:Calculation based on the Chronic Kidney Disease Epidemiology Collaboration (CKD-EPI) equation refit without adjustment for race. Blood Venous blood specimen / Unknown 11/26/2024 6:20 AM EDT 11/26/2024 7:28 AM EDT us Jeramie Schwartz MD LAB BLOOD ORDERABLES Final Resul t Performing Organization Address [facility] Co de Phone Number [facility] [address] [place] [address], [place] [phone] * BUN (11/26/2024 6:20 AM EDT) Pathologist [facility] BUN 16 5 - 25 mg/dL LAB CHEMISTRY METHOD 11/26/2024 8:[address] [facility] Blood Venous blood specimen / Unknown 11/26/2024 6:20 AM EDT 11/26/2024 7:28 AM EDT us Jeramie Schwartz MD LAB BLOOD ORDERABLES Final Resul t Performing Organization Address [facility] de Phone Number [facility] [address] [place] [address], [place] [phone] * (ABNORMAL) Occult blood stool, guaiac (09/04/2024 10:45 AM EDT) [facility] Occult Blood, Stool #1 Positive( A) Negative 09/04/2024 5:[address] [facility] Stool Rectum structure / Unknown 09/04/2024 10:45 AM EDT 09/04/2024 3:26 PM EDT us Jeramie Schwartz MD LAB BODY FLUIDS AND STOOLS ORDER VELMA Final Result Performing Organization Address [facility] Co de Phone Number [facility] [address] [place] [address], [place] [phone] from Last 3 Months or Most Recently Relevant to Health Maintenance Insurance MEDICARE [place]ICAID - [place] Member Subscriber Plan / Payer (Ef fective 2024-Present) Name:Ishmael Amoranpierre Member ID:[id number] Relation to Subscriber:Self Name:Silvio Amor Subscriber ID:[id number] Payer ID:[id number] Group ID:Not on file Type:Not on file Address: [facility] [address] [id number] Care Teams 3D Animator Relationship Specialty Start Date End Date Jeramie Schwartz MD [address] [place] [address] [address] MARS Chaudhry PCP - General Internal Medicine 06/02/24
--- OUTSIDE RECORDS SUMMARY | 2025-02-24 12:33 | XMS_ITS | Encounter Summary ---
Author Organization [facility] Address [address] [place] [address] Care Team Providers Care Customer Development Manager Name Role Phone Jeramie Schwartz MD Primary Care Provider [phone] Encounter Details Date Type Department Care Team (Late st Contact Info) Description 07/27/2024 Lab Requisition [facility] [address] [facility] [place] [address] Jeramie Schwartz MD [address] [place] [address] Dr [address] [place], [place] Benign prostatic hyperplasia without lower urinary [...] LAB CHEMISTRY METHOD 07/27/2024 5:44 AM EDT [facility] eGFR 80 >=60 mL/min/1. 73m2 LAB CHEMISTRY METHOD 07/27/2024 5:44 AM EDT [facility] Comment:Calculation based on the Chronic Kidney Disease Epidemiology Collaboration (CKD-EPI) equation refit without adjustment for race. Blood Venous blood specimen / Unknown 07/27/2024 4:44 AM EDT 07/27/2024 5:27 AM EDT us Jeramie Schwartz MD LAB BLOOD ORDERABLES Final Resul t Performing Organization Address [facility] Co de Phone Number [facility] [address] [place] [address], [place] [phone] * BUN (07/27/2024 4:44 AM EDT) BUN 18 5 - 25 mg/dL LAB CHEMISTRY METHOD 07/27/2024 5:44 AM EDT [facility] Blood Venous blood specimen / Unknown 07/27/2024 4:44 AM EDT 07/27/2024 5:27 AM EDT us Jeramie Schwartz MD LAB BLOOD ORDERABLES Final Resul t Performing Organization Address [facility] de Phone Number [facility] [address] [place] [address], [place] [phone] documented in this encounter Visit Diagnoses Diagnosis Benign prostatic hyperplasia without lower urinary tract symptoms documented in this encounter Care Teams Customer Development Manager Relationship Specialty Start Date End Date Jeramie Schwartz MD [address] [place] PCP - General Internal Medicine 06/02/24 documented as of this encounter
--- OUTSIDE RECORDS SUMMARY | 2025-02-24 12:33 | XMS_ITS | Encounter Summary ---
Author Organization [employer] Address [address] [place] [address] Care Team Providers Care Vacuum Technician Name Role Phone Jeramie Schwartz MD Primary Care Provider [phone] Encounter Details Date Type Department Care Team (Latest Contact Info) Description 09/03/2024 Lab Requisition [facility] - Main Lab [address] [facility] [place] [address] Jeramie Schwartz MD [address] [place] [address] Dr [address] [place] Diffuse traumatic brain injury with loss [...] Lavender tube (09/03/2024 6:28 AM EDT) Pathologist [facility] Extra Tube Hold for add-ons. 10/01/2024 8:03 AM EDT [facility] Comment:Auto resulted. Blood Venous blood specimen / Unknown 09/03/2024 6:28 AM EDT 09/03/2024 8:26 AM EDT us Jeramie Schwartz MD LAB BLOOD ORDERABLES Final Resul t [facility] [address] [place] [address], * (ABNORMAL) CBC auto differential (09/03/2024 6:28 AM EDT) [facility] WBC 3.9(L) 4.8 - 10.8 K/mcL LAB HEMETOLOGY METHOD 09/03/2024 8:55 AM [facility] RBC 4.30(L) 4.50 - 5.50 M/mcL LAB HEMETOLOGY METHOD 09/03/2024 8:55 AM [facility] Hemoglobin 11.3(L) 13.5 - 17.5 g/dL LAB HEMETOLOGY METHOD 09/03/2024 8:55 AM [facility] Hematocrit 36.9(L) 42.0 - 54.0 % LAB HEMETOLOGY METHOD 09/03/2024 8:55 AM EDT [facility] MCV 86.0 79.0 - 98.0 FL LAB HEMETOLOGY METHOD 09/03/2024 8:55 AM [facility] MCH 26.3(L) 27.0 - 32.0 pcg LAB HEMETOLOGY METHOD 09/03/2024 8:55 AM [facility] MCHC 30.6(L) 32.0 - 37.0 g/dL LAB HEMETOLOGY METHOD 09/03/2024 8:55 AM [facility] RDW 17.4(H) 11.0 - 15.0 % LAB HEMETOLOGY METHOD 09/03/2024 8:55 AM [facility] Platelets 278 130 - 400 K/mcL LAB HEMETOLOGY METHOD 09/03/2024 8:55 AM [facility] MPV 12.7(H) 7.0 - 11.0 FL LAB HEMETOLOGY METHOD 09/03/2024 8:55 AM [facility] NRBC 0.0 <1.0 % LAB HEMETOLOGY METHOD 09/03/2024 8:55 AM [facility] NRBC Absolute 0.00 <0.10 K/mcL LAB HEMETOLOGY METHOD 09/03/2024 8:55 AM [facility] Neutrophils Relative 48.8 % LAB HEMETOLOGY METHOD 09/03/2024 8:55 AM [facility] Lymphocytes Relative 26.7 % LAB HEMETOLOGY METHOD 09/03/2024 8:55 AM [facility] Monocytes Relative 15.6 % LAB HEMETOLOGY METHOD 09/03/2024 8:55 AM [facility] Eosinophils Relative 7.9 % LAB HEMETOLOGY METHOD 09/03/2024 8:55 AM [facility] Basophils Relative 0.5 % LAB HEMETOLOGY METHOD 09/03/2024 8:55 AM [facility] Immature Granulocytes Relative 0.5 % LAB HEMETOLOGY METHOD 09/03/2024 8:55 AM [facility] Neutrophils Absolute 1.90 1.50 - 7.00 K/mcL LAB HEMETOLOGY METHOD 09/03/2024 8:55 AM [facility] Lymphocytes Absolute 1.04 1.00 - 5.00 K/mcL LAB HEMETOLOGY METHOD 09/03/2024 8:55 AM EDT [facility] Monocytes Absolute 0.61 0.20 - 1.00 K/[facility] LAB HEMETOLOGY METHOD 09/03/2024 8:55 AM EDT [facility] Eosinophils Absolute 0.31 0.00 - 0.50 K/[facility] LAB HEMETOLOGY METHOD 09/03/2024 8:55 AM EDT [facility] Basophils Absolute 0.02 0.00 - 0.20 K/[facility] LAB HEMETOLOGY METHOD 09/03/2024 8:55 AM EDT [facility] Immature Granulocytes Absolute 0.02 0.00 - 0.03 K/[facility] LAB HEMETOLOGY METHOD 09/03/2024 8:55 AM EDT [facility] Blood Venous blood specimen / Unknown 09/03/2024 6:28 AM EDT 09/03/2024 8:22 AM EDT us Jeramie Schwartz MD LAB BLOOD ORDERABLES Final Resul t Performing Organization Address [facility]/ZIP Ga de Phone Number [facility] [address] [place] [address], * Vitamin D 25 hydroxy (09/03/2024 6:28 AM EDT) Vit D, 25-Hydroxy 57.0 30.0 - 80.0 ng/mL LAB CHEMISTRY METHOD 09/03/2024 10:39 AM EDT [facility] Blood Venous blood specimen / Unknown 09/03/2024 6:28 AM EDT 09/03/2024 8:22 AM EDT us Jeramie Schwartz MD LAB BLOOD ORDERABLES Final Resul t Performing Organization Address City/[facility]/ZIP Co de Phone Number [facility] [address] [place] [address], [place] [phone] * Prostate specific antigen screen (09/03/2024 6:28 AM EDT) Pathologist [facility] PSA 0.49 0.00 - 4.00 ng/mL LAB CHEMISTRY METHOD 09/03/2024 10:39 AM EDT [facility] Blood Venous blood specimen / Unknown 09/03/2024 6:28 AM EDT 09/03/2024 8:22 AM EDT Narrative [facility] - 09/03/2024 10:39 AM EDT The Siemens Advia Clear Metalsaur Chemiluminescent Immunoassay is used. Results obtained with different assay methods or kits cannot be used interchangeably. Results cannot be interpreted as absolute evidence of the presence or absence of malignant disease. us Jeramie Schwartz MD LAB BLOOD ORDERABLES Final Resul t Performing Organization Address City/[facility]/ZIP Co de Phone Number [facility] [address] [place] [address], [place] [phone] * Hemoglobin A1c (09/03/2024 6:28 AM EDT) [facility] Hemoglobin A1C 5.4 <6.5 % LAB CHEMISTRY METHOD 09/03/2024 10:38 AM EDT [facility] Mean Bld Glu Estim. 108 mg/dL LAB CHEMISTRY METHOD 09/03/2024 10:38 AM EDT [facility] Blood Venous blood specimen / Unknown 09/03/2024 6:28 AM EDT 09/03/2024 8:22 AM EDT us Jeramie Schwartz MD LAB BLOOD ORDERABLES Final Resul t Performing Organization Address City/[facility]/ZIP Co de Phone Number [facility] [address] [place] [address], [place] [phone] * (ABNORMAL) Comprehensive metabolic panel (09/03/2024 6:28 AM EDT) [facility] Signature Sodium 144 133 - 145 mmol/L LAB CHEMISTRY METHOD 09/03/2024 9:53 AM [facility] Potassium 4.4 3.5 - 5.5 mmol/L LAB CHEMISTRY METHOD 09/03/2024 9:53 AM [facility] Chloride 111(H) 96 - 110 mmol/L LAB CHEMISTRY METHOD 09/03/2024 9:53 AM [facility] CO2 26 21 - 32 mmol/L LAB CHEMISTRY METHOD 09/03/2024 9:53 AM [facility] Anion Gap 7 3 - 11 LAB CHEMISTRY METHOD 09/03/2024 9:53 AM [facility] Glucose 75 70 - 100 mg/dL LAB CHEMISTRY METHOD 09/03/2024 9:53 AM [facility] BUN 19 5 - 25 mg/dL LAB CHEMISTRY METHOD 09/03/2024 9:53 AM [facility] Creatinine 1.04 0.70 - 1.30 mg/dL LAB CHEMISTRY METHOD 09/03/2024 9:53 AM [facility] eGFR 78 >=60 mL/min/1. 73m2 LAB CHEMISTRY METHOD 09/03/2024 9:53 AM [facility] Comment:Calculation based on the Chronic Kidney Disease Epidemiology Collaboration (CKD-EPI) equation refit without adjustment for race. BUN/Creatinine Ratio 18.3 LAB CHEMISTRY METHOD 09/03/2024 9:53 AM [facility] Calcium 8.7 8.5 - 10.5 mg/dL LAB CHEMISTRY METHOD 09/03/2024 9:53 AM [facility] AST (SGOT) 14 10 - 42 unit/L LAB CHEMISTRY METHOD 09/03/2024 9:53 AM [facility] ALT (SGPT) 18 10 - 60 unit/L LAB CHEMISTRY METHOD 09/03/2024 9:53 AM [facility] Alkaline Phosphatase 86 42 - 121 unit/L LAB CHEMISTRY METHOD 09/03/2024 9:53 AM EDT [facility] Total Protein 6.9 6.0 - 8.0 g/dL LAB CHEMISTRY METHOD 09/03/2024 9:53 AM EDT [facility] Albumin 3.1(L) 3.2 - 5.0 g/dL LAB CHEMISTRY METHOD 09/03/2024 9:53 AM EDT [facility] Total Bilirubin 0.4 0.0 - 1.4 mg/dL LAB CHEMISTRY METHOD 09/03/2024 9:53 AM EDT [facility] Blood Venous blood specimen / Unknown 09/03/2024 6:28 AM EDT 09/03/2024 8:22 AM EDT us Jeramie Schwartz MD LAB BLOOD ORDERABLES Final Resul t [facility] [address] [place] [address], documented in this encounter Visit Diagnoses Diagnosis 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 unspecified duration, sequela ([facility] V24) Benign prostatic hyperplasia without lower urinary tract symptoms Type 2 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, left eye (CMS/[facility] V24, [facility] V28) Vitamin D deficiency, unspecified documented in this encounter Care Teams Vacuum Technician Relationship Specialty Start Date End Date Jeramie Schwartz MD [address] [place] [address] Dr [address] [place] PCP - General Internal Medicine 06/02/24 documented as of this encounter
--- OUTSIDE RECORDS SUMMARY | 2025-02-24 12:33 | XMS_ITS | Encounter Summary ---
Author Organization [facility] Address [address] [place] [address] Care Team Providers Care Supervisor Lathing Name Role Phone Jeramie Schwartz MD Primary Care Provider [phone] Encounter Details Date Type Department Care Team (Late st Contact Info) Description 09/24/2024 Lab Requisition [facility] - Main Lab 299 [facility] [place] [address] Jeramie Schwartz MD [address] [place] [address] Dr [address] [place] 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 unspecified duration, sequela (CMS/HCC V24); Other senior care (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 Social History Tobacco Use [...] duration, sequela (CMS/HCC V24) 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 CBC AND DIFFERENTIAL Routine 09/24/2024 6:30 AM EDT 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 unspecified duration, sequela (CMS/HCC V24) Other senior care (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 documented in this encounter Results * (ABNORMAL) CBC auto differential (09/24/2024 6:30 AM EDT) WBC 4.3(L) 4.8 - 10.8 K/[facility] LAB HEMETOLOGY METHOD 09/24/2024 8:50 AM [facility] RBC 4.40(L) 4.50 - 5.50 M/mcL LAB HEMETOLOGY METHOD 09/24/2024 8:50 AM [facility] Hemoglobin 11.5(L) 13.5 - 17.5 g/dL LAB HEMETOLOGY METHOD 09/24/2024 8:50 AM [facility] Hematocrit 36.4(L) 42.0 - 54.0 % LAB HEMETOLOGY METHOD 09/24/2024 8:50 AM [facility] MCV 83.1 79.0 - 98.0 FL LAB HEMETOLOGY METHOD 09/24/2024 8:50 AM [facility] MCH 26.3(L) 27.0 - 32.0 pcg LAB HEMETOLOGY METHOD 09/24/2024 8:50 AM [facility] MCHC 31.6(L) 32.0 - 37.0 g/dL LAB HEMETOLOGY METHOD 09/24/2024 8:50 AM [facility] RDW 16.6(H) 11.0 - 15.0 % LAB HEMETOLOGY METHOD 09/24/2024 8:50 AM [facility] Platelets 218 130 - 400 K/mcL LAB HEMETOLOGY METHOD 09/24/2024 8:50 AM [facility] MPV 10.7 7.0 - 11.0 FL LAB HEMETOLOGY METHOD 09/24/2024 8:50 AM [facility] NRBC 0.0 <1.0 % LAB HEMETOLOGY METHOD 09/24/2024 8:50 AM [facility] NRBC Absolute 0.00 <0.10 K/mcL LAB HEMETOLOGY METHOD 09/24/2024 8:50 AM [facility] Neutrophils Relative 63.4 % LAB HEMETOLOGY METHOD 09/24/2024 8:50 AM T [facility] Lymphocytes Relative 18.7 % LAB HEMETOLOGY METHOD 09/24/2024 8:50 AM [facility] Monocytes Relative 13.8 % LAB HEMETOLOGY METHOD 09/24/2024 8:50 AM [facility] Eosinophils Relative 3.7 % LAB HEMETOLOGY METHOD 09/24/2024 8:50 AM [facility] Basophils Relative 0.2 % LAB HEMETOLOGY METHOD 09/24/2024 8:50 AM [facility] Immature Granulocytes Relative 0.2 % LAB HEMETOLOGY METHOD 09/24/2024 8:50 AM [facility] Neutrophils Absolute 2.75 1.50 - 7.00 K/mcL LAB HEMETOLOGY METHOD 09/24/2024 8:50 AM [facility] Lymphocytes Absolute 0.81(L) 1.00 - 5.00 K/mcL LAB HEMETOLOGY METHOD 09/24/2024 8:50 AM [facility] Monocytes Absolute 0.60 0.20 - 1.00 K/mcL LAB HEMETOLOGY METHOD 09/24/2024 8:50 AM [facility] Eosinophils Absolute 0.16 0.00 - 0.50 K/mcL LAB HEMETOLOGY METHOD 09/24/2024 8:50 AM [facility] Basophils Absolute 0.01 0.00 - 0.20 K/mcL LAB HEMETOLOGY METHOD 09/24/2024 8:50 AM [facility] Immature Granulocytes Absolute 0.01 0.00 - 0.03 K/mcL LAB HEMETOLOGY METHOD 09/24/2024 8:50 AM [facility] Blood Venous blood specimen / Unknown 09/24/2024 6:30 AM EDT 09/24/2024 7:21 AM EDT Jeramie Schwartz MD LAB BLOOD ORDERABLES Final Resul t [facility] [address] [place] [address], documented in this encounter Visit Diagnoses Diagnosis 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 unspecified duration, sequela (CMS/HCC V24) Other senior care (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 documented in this encounter Care Teams Supervisor Lathing Relationship Specialty Start Date End Date Jeramie Schwartz MD [address] [place] [address] Dr [address] [place], [place] PCP - General Internal Medicine 06/02/24 documented as of this encounter
--- OUTSIDE RECORDS SUMMARY | 2025-02-24 12:33 | XMS_ITS | Encounter Summary ---
Author Organization [employer] Address [address] [place] [address] Care Team Providers Care System Administration Advisor Name Role Phone Jeramie Schwartz MD Primary Care Provider Encounter Details Date Type Department Care Team (Late st Contact Info) Description 10/01/2024 Lab Requisition [facility] - Main Lab 299 [facility] [place] [address] Jeramie Schwartz MD [address] [place] [address] Dr [address] [place] Diffuse traumatic brain injury with loss [...] AM EDT) WBC 3.7(L) 4.8 - 10.8 K/[facility] LAB HEMETOLOGY METHOD 10/01/2024 7:59 AM EDT [facility] RBC 4.70 4.50 - 5.50 M/mcL LAB HEMETOLOGY METHOD 10/01/2024 7:59 AM [facility] Hemoglobin 12.1(L) 13.5 - 17.5 g/dL LAB HEMETOLOGY METHOD 10/01/2024 7:59 AM [facility] Hematocrit 39.3(L) 42.0 - 54.0 % LAB HEMETOLOGY METHOD 10/01/2024 7:59 AM [facility] MCV 83.1 79.0 - 98.0 FL LAB HEMETOLOGY METHOD 10/01/2024 7:59 AM [facility] MCH 25.6(L) 27.0 - 32.0 pcg LAB HEMETOLOGY METHOD 10/01/2024 7:59 AM [facility] MCHC 30.8(L) 32.0 - 37.0 g/dL LAB HEMETOLOGY METHOD 10/01/2024 7:59 AM [facility] RDW 16.4(H) 11.0 - 15.0 % LAB HEMETOLOGY METHOD 10/01/2024 7:59 AM [facility] Platelets 186 130 - 400 K/mcL LAB HEMETOLOGY METHOD 10/01/2024 7:59 AM [facility] MPV 13.1(H) 7.0 - 11.0 FL LAB HEMETOLOGY METHOD 10/01/2024 7:59 AM [facility] NRBC 0.0 <1.0 % LAB HEMETOLOGY METHOD 10/01/2024 7:59 AM [facility] NRBC Absolute 0.00 <0.10 K/mcL LAB HEMETOLOGY METHOD 10/01/2024 7:59 AM [facility] Neutrophils Relative 42.6 % LAB HEMETOLOGY METHOD 10/01/2024 7:59 AM [facility] Lymphocytes Relative 31.2 % LAB HEMETOLOGY METHOD 10/01/2024 7:59 AM [facility] Monocytes Relative 17.0 % LAB HEMETOLOGY METHOD 10/01/2024 7:59 AM [facility] Eosinophils Relative 8.2 % LAB HEMETOLOGY METHOD 10/01/2024 7:59 AM [facility] Basophils Relative 0.5 % LAB HEMETOLOGY METHOD 10/01/2024 7:59 AM [facility] Immature Granulocytes Relative 0.5 % LAB HEMETOLOGY METHOD 10/01/2024 7:59 AM [facility] Neutrophils Absolute 1.55 1.50 - 7.00 K/mcL LAB HEMETOLOGY METHOD 10/01/2024 7:59 AM [facility] Lymphocytes Absolute 1.14 1.00 - 5.00 K/mcL LAB HEMETOLOGY METHOD 10/01/2024 7:59 AM [facility] Monocytes Absolute 0.62 0.20 - 1.00 K/mcL LAB HEMETOLOGY METHOD 10/01/2024 7:59 AM [facility] Eosinophils Absolute 0.30 0.00 - 0.50 K/mcL LAB HEMETOLOGY METHOD 10/01/2024 7:59 AM [facility] Basophils Absolute 0.02 0.00 - 0.20 K/mcL LAB HEMETOLOGY METHOD 10/01/2024 7:59 AM [facility] Immature Granulocytes Absolute 0.02 0.00 - 0.03 K/mcL LAB HEMETOLOGY METHOD 10/01/2024 7:59 AM [facility] Blood Venous blood specimen / Unknown 10/01/2024 6:55 AM EDT 10/01/2024 7:26 AM EDT us Jeramie Schwartz MD LAB BLOOD ORDERABLES Final Resul t [facility] ([facility] [address] [place] [address], documented in this encounter Visit Diagnoses Diagnosis Diffuse traumatic brain injury with loss of consciousness status unknown, sequela (CMS/[facility] V24) Vitamin D deficiency, unspecified documented in this encounter Care Teams System Administration Advisor Relationship Specialty Start Date End Date Jeramie Schwartz MD [address] [place] [address] Dr [address] [place], [place] PCP - General Internal Medicine 06/02/24 documented as of this encounter
--- OUTSIDE RECORDS SUMMARY | 2025-02-24 12:34 | XMS_ITS | Encounter Summary ---
Author Organization [facility] Address [address] [place] [address] Care Team Providers Care Jacquard Loom Weaver Name Role Phone Jeramie Schwartz MD Primary Care Provider [phone] Encounter Details Date Type Department Care Team (Late st Contact Info) Description 03/11/2024 Lab Requisition [facility] - Main Lab [address] [place] [address] Jeramie Schwartz MD [address] [place] [address] [address] [place] Diffuse traumatic brain injury with loss of [...] AM EST) WBC 3.2(L) 4.8 - 10.8 K/[facility] LAB HEMETOLOGY METHOD 03/11/2024 6:59 AM EST [facility] RBC 4.10(L) 4.50 - 5.50 M/mcL LAB HEMETOLOGY METHOD 03/11/2024 6:59 AM [facility] Hemoglobin 10.5(L) 13.5 - 17.5 g/dL LAB HEMETOLOGY METHOD 03/11/2024 6:59 AM [facility] Hematocrit 34.8(L) 42.0 - 54.0 % LAB HEMETOLOGY METHOD 03/11/2024 6:59 AM [facility] MCV 85.7 79.0 - 98.0 FL LAB HEMETOLOGY METHOD 03/11/2024 6:59 AM [facility] MCH 25.9(L) 27.0 - 32.0 pcg LAB HEMETOLOGY METHOD 03/11/2024 6:59 AM [facility] MCHC 30.2(L) 32.0 - 37.0 g/dL LAB HEMETOLOGY METHOD 03/11/2024 6:59 AM [facility] RDW 16.6(H) 11.0 - 15.0 % LAB HEMETOLOGY METHOD 03/11/2024 6:59 AM [facility] Platelets 287 130 - 400 K/mcL LAB HEMETOLOGY METHOD 03/11/2024 6:59 AM [facility] MPV 11.1(H) 7.0 - 11.0 FL LAB HEMETOLOGY METHOD 03/11/2024 6:59 AM [facility] NRBC 0.0 <1.0 % LAB HEMETOLOGY METHOD 03/11/2024 6:59 AM [facility] NRBC Absolute 0.00 <0.10 K/mcL LAB HEMETOLOGY METHOD 03/11/2024 6:59 AM [facility] Neutrophils Relative 38.2 % LAB HEMETOLOGY METHOD 03/11/2024 6:59 AM [facility] Lymphocytes Relative 32.8 % LAB HEMETOLOGY METHOD 03/11/2024 6:59 AM [facility] Monocytes Relative 17.8 % LAB HEMETOLOGY METHOD 03/11/2024 6:59 AM [facility] Eosinophils Relative 10.3 % LAB HEMETOLOGY METHOD 03/11/2024 6:59 AM [facility] Basophils Relative 0.6 % LAB HEMETOLOGY METHOD 03/11/2024 6:59 AM [facility] Immature Granulocytes Relative 0.3 % LAB HEMETOLOGY METHOD 03/11/2024 6:59 AM [facility] Neutrophils Absolute 1.22(L) 1.50 - 7.00 K/mcL LAB HEMETOLOGY METHOD 03/11/2024 6:59 AM [facility] Lymphocytes Absolute 1.05 1.00 - 5.00 K/mcL LAB HEMETOLOGY METHOD 03/11/2024 6:59 AM [facility] Monocytes Absolute 0.57 0.20 - 1.00 K/mcL LAB HEMETOLOGY METHOD 03/11/2024 6:59 AM [facility] Eosinophils Absolute 0.33 0.00 - 0.50 K/mcL LAB HEMETOLOGY METHOD 03/11/2024 6:59 AM [facility] Basophils Absolute 0.02 0.00 - 0.20 K/mcL LAB HEMETOLOGY METHOD 03/11/2024 6:59 AM [facility] Immature Granulocytes Absolute 0.01 0.00 - 0.03 K/mcL LAB HEMETOLOGY METHOD 03/11/2024 6:59 AM [facility] Blood Venous blood specimen / Unknown 03/11/2024 4:55 AM EST 03/11/2024 6:08 AM EST us Jeramie Schwartz MD LAB BLOOD ORDERABLES Final Resul t [facility] [address] [place] [address], documented in this encounter Visit Diagnoses Diagnosis 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 unspecified duration, sequela (CMS/HCC V24) documented in this encounter Care Teams Jacquard Loom Weaver Relationship Specialty Start Date End Date Jeramie Schwartz MD [address] [place] [address] Dr [address] [place] PCP - General Internal Medicine 06/02/24 documented as of this encounter
--- OUTSIDE RECORDS SUMMARY | 2025-02-24 12:34 | XMS_ITS | Encounter Summary ---
Author [facility] Address [address] [place] [address] Care Team Providers Care Metal Flow Coordinator Name Role Phone Jeramie Schwartz MD Primary Care Provider [phone] Encounter Details Date Type Department Care Team (Late st Contact Info) Description 09/07/[address] [facility] - Main Lab 299 [facility] [place] [address] Jeramie Schwartz MD [address] [place] [address] [address] [place] Other intermission coordinator (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 Social [...] PREGABALIN Routine 09/07/2024 5:25 AM EDT Other intermission coordinator (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 documented [...] 11:05 PM EDT Performed at: 01 - [employer] [address] [place] [id number] Coke Loader: Michelle Jimenez [facility], Phone: [phone] us Jeramie Schwartz MD LAB BLOOD ORDERABLES Final Resul t [facility] documented in this encounter Visit Diagnoses Diagnosis 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
--- OUTSIDE RECORDS SUMMARY | 2025-02-24 12:34 | XMS_ITS | Encounter Summary ---
Author Organization [facility] Address [address] [place] [address] Care Team Providers Care Assistant Front Desk Manager Name Role Phone Jeramie Schwartz MD Primary Care Provider [phone] Encounter Details Date Type Department Care Team (Late st Contact Info) Description 11/13/[address] [facility] - Main Lab [address] [place] [address] Jeramie Schwartz MD [address] [place] [address] Dr [address] [place], [place] Other fecal abnormalities Social History Tobacco [...] LAB HEMETOLOGY METHOD 11/13/2024 7:38 AM EDT [facility] RBC 5.10 4.50 - 5.50 M/mcL LAB HEMETOLOGY METHOD 11/13/2024 7:38 AM EDT [facility] Hemoglobin 13.0(L) 13.5 - 17.5 g/dL LAB HEMETOLOGY METHOD 11/13/2024 7:38 AM [facility] Hematocrit 41.2(L) 42.0 - 54.0 % LAB HEMETOLOGY METHOD 11/13/2024 7:38 AM [facility] MCV 81.3 79.0 - 98.0 FL LAB HEMETOLOGY METHOD 11/13/2024 7:38 AM [facility] MCH 25.6(L) 27.0 - 32.0 pcg LAB HEMETOLOGY METHOD 11/13/2024 7:38 AM [facility] MCHC 31.6(L) 32.0 - 37.0 g/dL LAB HEMETOLOGY METHOD 11/13/2024 7:38 AM [facility] RDW 17.0(H) 11.0 - 15.0 % LAB HEMETOLOGY METHOD 11/13/2024 7:38 AM [facility] Platelets 148 130 - 400 K/mcL LAB HEMETOLOGY METHOD 11/13/2024 7:38 AM [facility] MPV LAB HEMETOLOGY METHOD 11/13/2024 7:38 AM [facility] Comment:Not Measured NRBC 0.0 <1.0 % LAB HEMETOLOGY METHOD 11/13/2024 7:38 AM [facility] NRBC Absolute 0.00 <0.10 K/mcL LAB HEMETOLOGY METHOD 11/13/2024 7:38 AM [facility] Neutrophils Relative 53.8 % LAB HEMETOLOGY METHOD 11/13/2024 7:38 AM [facility] Lymphocytes Relative 32.9 % LAB HEMETOLOGY METHOD 11/13/2024 7:38 AM [facility] Monocytes Relative 10.1 % LAB HEMETOLOGY METHOD 11/13/2024 7:38 AM [facility] Eosinophils Relative 2.6 % LAB HEMETOLOGY METHOD 11/13/2024 7:38 AM EDT [facility] Basophils Relative 0.6 % LAB HEMETOLOGY METHOD 11/13/2024 7:38 AM [facility] Immature Granulocytes Relative 0.0 % LAB HEMETOLOGY METHOD 11/13/2024 7:38 AM EDT [facility] Neutrophils Absolute 1.87 1.50 - 7.00 K/mcL LAB HEMETOLOGY METHOD 11/13/2024 7:38 AM EDT [facility] Lymphocytes Absolute 1.14 1.00 - 5.00 K/mcL LAB HEMETOLOGY METHOD [facility] Monocytes Absolute 0.35 0.20 - 1.00 K/mcL LAB HEMETOLOGY METHOD 11/13/2024 7:38 AM EDT [facility] Eosinophils Absolute 0.09 0.00 - 0.50 K/mcL LAB HEMETOLOGY METHOD 11/13/2024 7:38 AM EDT [facility] Basophils Absolute 0.02 0.00 - 0.20 K/mcL LAB HEMETOLOGY METHOD 11/13[facility]2024 7[facility] Immature Granulocytes Absolute 0.00 0.00 - 0.03 K/mcL LAB HEMETOLOGY METHOD 11/13/2024 7:38 AM EDT [facility] Blood Venous blood specimen / Unknown 11/13/2024 6:45 AM EDT 11/13/2024 7:20 AM EDT us Jeramie Schwartz MD LAB BLOOD ORDERABLES Final Resul t [facility] [address] [place] [address], documented in this encounter Visit Diagnoses Diagnosis Other fecal abnormalities documented in this encounter Care Teams Assistant Front Desk Manager Relationship Specialty Start Date End Date Jeramie Schwartz MD [address] [place] [address] Dr [address] [place] Chaudhry PCP - General Internal Medicine 06/02/24 documented as of this encounter
--- OUTSIDE RECORDS SUMMARY | 2025-02-24 12:34 | XMS_ITS | Encounter Summary ---
Author Organization [facility] Address [address] [place] [address] Care Team Providers Care It Communications Specialist Name Role Phone Jeramie Schwartz MD Primary Care Provider [phone] Encounter Details Date Type Department Care Team (Late st Contact Info) Description 09/04/2024 Lab Requisition [facility] Lab [address] [place] [address] Jeramie Schwartz MD [address] [place] [address] Dr [address] [place], [place] Social History Tobacco Use Types [...] Positive( A) Negative 09/04/2024 5:13 PM EDT [facility] Stool Rectum structure / Unknown 09/04/2024 10:45 AM EDT 09/04/2024 3:26 PM EDT us Jeramie Schwartz MD LAB BODY FLUIDS AND STOOLS ORDER VELMA Final Result [facility] [address] [place] [address], [place] [phone] documented in this encounter Visit Diagnoses Diagnosis [place] Blood in stool documented in this encounter Care Teams It Communications Specialist Relationship Specialty Start Date End Date Jeramie Schwartz MD [address] [place] [address] Dr [address] [place] Chaudhry PCP - General Internal Medicine 06/02/24 documented as of this encounter
--- OUTSIDE RECORDS SUMMARY | 2025-02-24 12:34 | XMS_ITS | Encounter Summary ---
Author Organization [employer] Address [address] [place] [address] Care Team Providers Care Geological Engineer Name Role Phone Jeramie Schwartz MD Primary Care Provider [phone] Encounter Details Date Type Department Care Team (Latest Contact Info) Description 10/14/2024 Lab Requisition [facility] - Main Lab [address] [facility] [place] [address] Jeramie Schwartz MD [address] [place] [address] Dr [address] [place] Type 2 diabetes mellitus with mild nonproliferative [...] diabetic retinopathy with macular edema, left eye ([facility] V24, [facility] [place] documented in this encounter Results * (ABNORMAL) Manual differential (10/14/2024 7:20 AM EDT) Neutrophils % 54.0 % LAB HEMETOLOGY METHOD 10/14/2024 9:21 AM [facility] Lymphocytes % 28.0 % LAB HEMETOLOGY METHOD 10/14/2024 9:21 AM [facility] Monocytes % 14.0 % LAB HEMETOLOGY METHOD 10/14/2024 9:21 AM [facility] Eosinophils % 4.0 % LAB HEMETOLOGY METHOD 10/14/2024 9:21 AM [facility] Basophils % 1.0 % LAB HEMETOLOGY METHOD 10/14/2024 9:21 AM [facility] Neutrophils Absolute Manual 1.67 1.50 - 7.00 K/mcL LAB HEMETOLOGY METHOD 10/14/2024 9:21 AM [facility] Lymphocytes Absolute 0.87(L) 1.00 - 5.00 K/mcL LAB HEMETOLOGY METHOD 10/14/2024 9:21 AM [facility] Monocytes Absolute Manual 0.43 0.20 - 1.00 K/mcL LAB HEMETOLOGY METHOD 10/14/2024 9:21 AM [facility] Eosinophils Absolute Manual 0.12 0.00 - 0.50 K/mcL LAB HEMETOLOGY METHOD 10/14/2024 9:21 AM [facility] Basophils Absolute Manual 0.03 0.00 - 0.20 K/mcL LAB HEMETOLOGY METHOD 10/14/2024 9:21 AM [facility] Rbc Morphology Present( A) Consistent with indices, Normal for LAB HEMETOLOGY METHOD 10/14/2024 9:[address] [facility] Platelet Morphology - WAM See Note(A) Normal LAB HEMETOLOGY METHOD 10/14/2024 9:[address] [facility] Comment:PLT: Normal Ovalocytes Present 5 - 10%(A) (none) LAB HEMETOLOGY METHOD 10/14/2024 9:[address] [facility] Blood Venous blood specimen / Unknown 10/14/2024 7:20 AM EDT 10/14/2024 8:22 AM EDT us Jeramie Schwartz MD LAB BLOOD ORDERABLES Final Resul t [facility] [address] [place] [address], * (ABNORMAL) CBC auto differential (10/14/2024 7:20 AM EDT) WBC 3.1(L) 4.8 - 10.8 K/mcL LAB HEMETOLOGY METHOD [facility] RBC 4.80 4.50 - 5.50 M/mcL LAB HEMETOLOGY METHOD 10/14/2024 9:21 AM [facility] Hemoglobin 12.2(L) 13.5 - 17.5 g/dL LAB HEMETOLOGY METHOD 10/14/2024 9:[address] [facility] Hematocrit 39.0(L) 42.0 - 54.0 % LAB HEMETOLOGY METHOD 10/14/2024 9:[address] [facility] MCV 81.3 79.0 - 98.0 FL LAB HEMETOLOGY METHOD 10/14/2024 9:21 AM [facility] MCH 25.4(L) 27.0 - 32.0 pcg LAB HEMETOLOGY METHOD 10/14/2024 9:[address] [facility] MCHC 31.3(L) 32.0 - 37.0 g/dL LAB HEMETOLOGY METHOD 10/14/2024 9:[address] [facility] RDW 16.1(H) 11.0 - 15.0 % LAB HEMETOLOGY METHOD 10/14/2024 9:[address] [facility] Platelets 208 130 - 400 K/mcL LAB HEMETOLOGY METHOD 10/14/2024 9:[address] [facility] MPV LAB HEMETOLOGY METHOD 10/14/2024 9:[address] [facility] Comment:Not Measured NRBC 0.0 <1.0 % LAB HEMETOLOGY METHOD 10/14/2024 9:[address] [facility] NRBC Absolute 0.00 <0.10 K/mcL LAB HEMETOLOGY METHOD 10/14/2024 9:[address] [facility] Blood Venous blood specimen / Unknown 10/14/2024 7:20 AM EDT 10/14/2024 8:22 AM EDT us Jeramie Schwartz MD LAB BLOOD ORDERABLES Final Resul t [facility] [address] [place] [address], * Hemoglobin A1c (10/14/2024 7:20 AM EDT) Hemoglobin A1C 5.6 <6.5 % LAB CHEMISTRY METHOD 10/14/2024 12:[address] [facility] Mean Bld Glu Estim. 114 mg/dL LAB CHEMISTRY METHOD 10/14/2024 12:[address] [facility] Blood Venous blood specimen / Unknown 10/14/2024 7:20 AM EDT 10/14/2024 8:22 AM EDT Jeramie Schwartz MD LAB BLOOD ORDERABLES Final Resul t [facility] ([facility]) [facility] [address] [place] [address], documented in this encounter Visit Diagnoses Diagnosis Type 2 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, left eye ([facility] V24, [facility] V28) documented in this encounter Care Teams Geological Engineer Relationship Specialty Start Date End Date Jeramie Schwartz MD [address] [facility] [address] [place], [place] PCP - General Internal Medicine 06/02/24 documented as of this encounter
--- OUTSIDE RECORDS SUMMARY | 2025-02-24 12:34 | XMS_ITS | Encounter Summary ---
Author Organization [email or web address] Address [address] [place] [address] Care Team Providers Care Art Conservator Name Role Phone Jeramie Schwartz MD Primary Care Provider [phone] Encounter Details Date Type Department Care Team (Late st Contact Info) Description 08/26/2024 Lab Requisition [facility] - Main Lab [address] [facility] [place] [address] Jeramie Schwartz MD [address] [place] [address] Dr [address] [place] Diffuse traumatic brain injury with loss [...] AM EDT) WBC 3.6(L) 4.8 - 10.8 K/[facility] LAB HEMETOLOGY METHOD 08/26/2024 7:31 AM [facility] RBC 3.80(L) 4.50 - 5.50 M/mcL LAB HEMETOLOGY METHOD 08/26/2024 7:31 AM [facility] Hemoglobin 10.1(L) 13.5 - 17.5 g/dL LAB HEMETOLOGY METHOD 08/26/2024 7:31 AM [facility] Hematocrit 32.6(L) 42.0 - 54.0 % LAB HEMETOLOGY METHOD 08/26/2024 7:31 AM [facility] MCV 84.9 79.0 - 98.0 FL LAB HEMETOLOGY METHOD 08/26/2024 7:31 AM [facility] MCH 26.3(L) 27.0 - 32.0 pcg LAB HEMETOLOGY METHOD 08/26/2024 7:31 AM [facility] MCHC 31.0(L) 32.0 - 37.0 g/dL LAB HEMETOLOGY METHOD 08/26/2024 7:31 AM [facility] RDW 16.6(H) 11.0 - 15.0 % LAB HEMETOLOGY METHOD 08/26/2024 7:31 AM [facility] Platelets 265 130 - 400 K/mcL LAB HEMETOLOGY METHOD 08/26/2024 7:31 AM [facility] MPV 12.3(H) 7.0 - 11.0 FL LAB HEMETOLOGY METHOD 08/26/2024 7:31 AM [facility] NRBC 0.0 <1.0 % LAB HEMETOLOGY METHOD 08/26/2024 7:31 AM [facility] NRBC Absolute 0.00 <0.10 K/mcL LAB HEMETOLOGY METHOD 08/26/2024 7:31 AM [facility] Neutrophils Relative 46.9 % LAB HEMETOLOGY METHOD 08/26/2024 7:31 AM [facility] Lymphocytes Relative 26.7 % LAB HEMETOLOGY METHOD 08/26/2024 7:31 AM [facility] Monocytes Relative 18.8 % LAB HEMETOLOGY METHOD 08/26/2024 7:31 AM [facility] Eosinophils Relative 6.7 % LAB HEMETOLOGY METHOD 08/26/2024 7:31 AM [facility] Basophils Relative 0.6 % LAB HEMETOLOGY METHOD 08/26/2024 7:31 AM [facility] Immature Granulocytes Relative 0.3 % LAB HEMETOLOGY METHOD 08/26/2024 7:31 AM [facility] Neutrophils Absolute 1.67 1.50 - 7.00 K/mcL LAB HEMETOLOGY METHOD 08/26/2024 7:31 AM [facility] Lymphocytes Absolute 0.95(L) 1.00 - 5.00 K/mcL LAB HEMETOLOGY METHOD 08/26/2024 7:31 AM [facility] Monocytes Absolute 0.67 0.20 - 1.00 K/mcL LAB HEMETOLOGY METHOD 08/26/2024 7:31 AM [facility] Eosinophils Absolute 0.24 0.00 - 0.50 K/mcL LAB HEMETOLOGY METHOD 08/26/2024 7:31 AM [facility] Basophils Absolute 0.02 0.00 - 0.20 K/mcL LAB HEMETOLOGY METHOD 08/26/2024 7:31 AM [facility] Immature Granulocytes Absolute 0.01 0.00 - 0.03 K/mcL LAB HEMETOLOGY METHOD 08/26/2024 7:31 AM [facility] Blood Venous blood specimen / Unknown 08/26/2024 6:00 AM EDT 08/26/2024 7:09 AM EDT us Jeramie Schwartz MD LAB BLOOD ORDERABLES Final Resul t [email or web address] [address] [place] [address], documented in this encounter Visit Diagnoses Diagnosis 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 unspecified duration, sequela (CMS/HCC V24) Hyperlipidemia, unspecified documented in this encounter Care Teams Art Conservator Relationship Specialty Start Date End Date Jeramie Schwartz MD [address] [place] [address] Dr [address] [place], [place] PCP - General Internal Medicine 06/02/24 documented as of this encounter
--- OUTSIDE RECORDS SUMMARY | 2025-02-24 12:34 | XMS_ITS | Encounter Summary ---
Author Organization [facility] Address [address] [place] [address] Care Team Providers Care Edge Beader Name Role Phone Jeramie Schwartz MD Primary Care Provider Encounter Details Date Type Department Care Team (Late st Contact Info) Description 12/14/2024 Lab Requisition [facility] - Main Lab [address] [place] [address] Jeramie Schwartz MD [address] [place] [address] Dr [address] [place], [place] Other fecal abnormalities Social History Tobacco [...] LAB HEMETOLOGY METHOD 12/14/2024 6:47 AM EDT [facility] RBC 4.70 4.50 - 5.50 M/mcL LAB HEMETOLOGY METHOD 12/14/2024 6:47 AM EDT [facility] Hemoglobin 11.9(L) 13.5 - 17.5 g/dL LAB HEMETOLOGY METHOD 12/14/2024 6:47 AM [facility] Hematocrit 38.9(L) 42.0 - 54.0 % LAB HEMETOLOGY METHOD 12/14/2024 6:47 AM [facility] MCV 82.6 79.0 - 98.0 FL LAB HEMETOLOGY METHOD 12/14/2024 6:47 AM [facility] MCH 25.3(L) 27.0 - 32.0 pcg LAB HEMETOLOGY METHOD 12/14/2024 6:47 AM [facility] MCHC 30.6(L) 32.0 - 37.0 g/dL LAB HEMETOLOGY METHOD 12/14/2024 6:47 AM [facility] RDW 17.1(H) 11.0 - 15.0 % LAB HEMETOLOGY METHOD 12/14/2024 6:47 AM [facility] Platelets 176 130 - 400 K/mcL LAB HEMETOLOGY METHOD 12/14/2024 6:47 AM [facility] MPV 10.7 7.0 - 11.0 FL LAB HEMETOLOGY METHOD 12/14/2024 6:47 AM [facility] NRBC 0.0 <1.0 % LAB HEMETOLOGY METHOD 12/14/2024 6:47 AM [facility] NRBC Absolute 0.00 <0.10 K/mcL LAB HEMETOLOGY METHOD 12/14/2024 6:47 AM [facility] Neutrophils Relative 40.6 % LAB HEMETOLOGY METHOD 12/14/2024 6:47 AM [facility] Lymphocytes Relative 35.7 % LAB HEMETOLOGY METHOD 12/14/2024 6:47 AM [facility] Monocytes Relative 20.2 % LAB HEMETOLOGY METHOD 12/14/2024 6:47 AM EDT [facility] Eosinophils Relative 2.7 % LAB HEMETOLOGY METHOD 12/14/2024 6:47 AM EDT [facility] Basophils Relative 0.4 % LAB [facility]ETOLOGY [facility] Granulocytes Relative 0.4 % LAB HEMETOLOGY METHOD 12/14/2024 6:47 AM EDT [facility] Neutrophils Absolute 1.05(L) 1.50 - 7.00 K/mcL LAB HEMETOLOGY METHOD 12/14/2024 6:47 AM EDT [facility] Lymphocytes Absolute 0.92(L) 1.00 - 5.00 K/mcL LAB HEMETOLOGY METHOD 12/14/2024 6:47 AM EDT [facility] Monocytes Absolute 0.52 0.20 - 1.00 K/mcL LAB HEMETOLOGY METHOD 12/14/2024 6:47 AM EDT [facility] Eosinophils Absolute 0.07 0.00 - 0.50 K/mcL LAB HEMETOLOGY METHOD 12/14/2024 6:47 AM EDT [facility] Basophils Absolute 0.01 0.00 - 0.20 K/mcL LAB HEMETOLOGY METHOD 12/14/2024 6:47 AM T [facility] Immature Granulocytes Absolute 0.01 0.00 - 0.03 K/mcL LAB HEMETOLOGY METHOD 12/14/2024 6:47 AM EDT [facility] Blood Venous blood specimen / Unknown 12/14/2024 5:55 AM EDT 12/14/2024 6:36 AM EDT us Jeramie Schwartz MD LAB BLOOD ORDERABLES Final Resul t [facility] [address] [place] [address], documented in this encounter Visit Diagnoses Diagnosis Other fecal abnormalities documented in this encounter Care Teams Edge Beader Relationship Specialty Start Date End Date Jeramie Schwartz MD [address] [facility] [address] [place]aud[place] PCP - General Internal Medicine 06/02/24 documented as of this encounter
--- OUTSIDE RECORDS SUMMARY | 2025-02-24 12:34 | XMS_ITS | Encounter Summary ---
Author Organization [facility] Address [address] [place] [address] Care Team Providers Care Desktop Operator Name Role Phone Jeramie Schwartz MD Primary Care Provider [phone] Encounter Details Date Type Department Care Team (Late st Contact Info) Description 08/12/2024 Lab Requisition [facility] - Main Lab [address] [facility] [place] [address] Jeramie Schwartz MD [address] [place] [address] [address] [place] 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 unspecified duration, sequela (CMS/HCC V24); Essential (primary) hypertension; Other mcc (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 Social History Tobacco Use [...] duration, sequela (CMS/HCC) Essential (primary) hypertension Other mcc (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 CBC AND DIFFERENTIAL Routine 08/12/2024 5:42 AM EDT 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 unspecified duration, sequela (CMS/HCC) Essential (primary) hypertension Other mcc (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 documented in this encounter Results * (ABNORMAL) CBC auto differential (08/12/2024 5:42 AM EDT) WBC 3.7(L) 4.8 - 10.8 K/mcL LAB HEMETOLOGY METHOD 08/12/2024 6:48 AM [facility] RBC 3.80(L) 4.50 - 5.50 M/mcL LAB HEMETOLOGY METHOD 08/12/2024 6:48 AM [facility] Hemoglobin 9.9(L) 13.5 - 17.5 g/dL LAB HEMETOLOGY METHOD 08/12/2024 6:48 AM [facility] Hematocrit 31.3(L) 42.0 - 54.0 % LAB HEMETOLOGY METHOD 08/12/2024 6:48 AM [facility] MCV 83.0 79.0 - 98.0 FL LAB HEMETOLOGY METHOD 08/12/2024 6:48 AM [facility] MCH 26.3(L) 27.0 - 32.0 pcg LAB HEMETOLOGY METHOD 08/12/2024 6:48 AM [facility] MCHC 31.6(L) 32.0 - 37.0 g/dL LAB HEMETOLOGY METHOD 08/12/2024 6:48 AM [facility] RDW 16.4(H) 11.0 - 15.0 % LAB HEMETOLOGY METHOD 08/12/2024 6:48 AM [facility] Platelets 207 130 - 400 K/mcL LAB HEMETOLOGY METHOD 08/12/2024 6:48 AM [facility] MPV 10.3 7.0 - 11.0 FL LAB HEMETOLOGY METHOD 08/12/2024 6:48 AM [facility] NRBC 0.0 <1.0 % LAB HEMETOLOGY METHOD 08/12/2024 6:48 AM [facility] NRBC Absolute 0.00 <0.10 K/mcL LAB HEMETOLOGY METHOD 08/12/2024 6:48 AM [facility] Neutrophils Relative 41.0 % LAB HEMETOLOGY METHOD 08/12/2024 6:48 AM [facility] Lymphocytes Relative 34.3 % LAB HEMETOLOGY METHOD 08/12/2024 6:48 AM [facility] Monocytes Relative 14.5 % LAB HEMETOLOGY METHOD 08/12/2024 6:48 AM [facility] Eosinophils Relative 8.8 % LAB HEMETOLOGY METHOD 08/12/2024 6:48 AM [facility] Basophils Relative 1.1 % LAB HEMETOLOGY METHOD 08/12/2024 6:48 AM [facility] Immature Granulocytes Relative 0.3 % LAB HEMETOLOGY METHOD 08/12/2024 6:48 AM [facility] Neutrophils Absolute 1.53 1.50 - 7.00 K/mcL LAB HEMETOLOGY METHOD 08/12/2024 6:48 AM [facility] Lymphocytes Absolute 1.28 1.00 - 5.00 K/mcL LAB HEMETOLOGY METHOD 08/12/2024 6:48 AM [facility] Monocytes Absolute 0.54 0.20 - 1.00 K/mcL LAB HEMETOLOGY METHOD 08/12/2024 6:48 AM [facility] Eosinophils Absolute 0.33 0.00 - 0.50 K/mcL LAB HEMETOLOGY METHOD 08/12/2024 6:48 AM [facility] Basophils Absolute 0.04 0.00 - 0.20 K/mcL LAB HEMETOLOGY METHOD 08/12/2024 6:48 AM [facility] Immature Granulocytes Absolute 0.01 0.00 - 0.03 K/mcL LAB HEMETOLOGY METHOD 08/12/2024 6:48 AM [facility] Blood Venous blood specimen / Unknown 08/12/2024 5:42 AM EDT 08/12/2024 6:29 AM EDT Jeramie Schwartz MD LAB BLOOD ORDERABLES Final Resul t [facility] ([facility]) [facility] [address] [place] [address], documented in this encounter Visit Diagnoses Diagnosis 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 unspecified duration, sequela (CMS/HCC V24) Essential (primary) hypertension Unspecified essential hypertension Other mcc (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 documented in this encounter Care Teams Desktop Operator Relationship Specialty Start Date End Date Jeramie Schwartz MD [address] [facility] [address] [facility] [address] [place], [place] PCP - General Internal Medicine 06/02/24 documented as of this encounter
--- OUTSIDE RECORDS SUMMARY | 2025-02-24 12:34 | XMS_ITS | Encounter Summary ---
Author Organization [facility] Address [address] [place] [address] Care Team Providers Care Plastics Spreading Machine Operator Name Role Phone Jeramie Schwartz MD Primary Care Provider [phone] Encounter Details Date Type Department Care Team (Late st Contact Info) Description 08/19/2024 Lab Requisition [facility] - Main Lab [address] [facility] [place] [address] Jeramie Schwartz MD [address] [place] [address] Dr [address] [place] Diffuse traumatic brain injury with loss of [...] of unspecified duration, sequela (CMS/HCC V24) Other long term care pharmacist (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 CBC AND DIFFERENTIAL Routine 08/19/2024 6:12 AM EDT 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 unspecified duration, sequela (CMS/HCC V24) Other jail (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 documented in this encounter Results * (ABNORMAL) CBC auto differential (08/19/2024 6:12 AM EDT) WBC 3.2(L) 4.8 - 10.8 K/mcL LAB HEMETOLOGY METHOD 08/19/2024 8:30 AM [facility] RBC 4.30(L) 4.50 - 5.50 M/mcL LAB HEMETOLOGY METHOD 08/19/2024 8:30 AM [facility] LAB Hemoglobin 11.2(L) 13.5 - 17.5 g/dL LAB HEMETOLOGY METHOD 08/19/2024 8:30 AM [facility] LAB Hematocrit 35.9(L) 42.0 - 54.0 % LAB HEMETOLOGY METHOD 08/19/2024 8:30 AM [facility] LAB MCV 84.1 79.0 - 98.0 FL LAB HEMETOLOGY METHOD 08/19/2024 8:30 AM [facility] LAB MCH 26.2(L) 27.0 - 32.0 pcg LAB HEMETOLOGY METHOD 08/19/2024 8:30 AM [facility] LAB MCHC 31.2(L) 32.0 - 37.0 g/dL LAB HEMETOLOGY METHOD 08/19/2024 8:30 AM [facility] LAB RDW 17.1(H) 11.0 - 15.0 % LAB HEMETOLOGY METHOD 08/19/2024 8:30 AM [facility] LAB Platelets 284 130 - 400 K/mcL LAB HEMETOLOGY METHOD 08/19/2024 8:30 AM [facility] LAB MPV 12.1(H) 7.0 - 11.0 FL LAB HEMETOLOGY METHOD 08/19/2024 8:30 AM [facility] LAB NRBC 0.0 <1.0 % LAB HEMETOLOGY METHOD 08/19/2024 8:30 AM [facility] LAB NRBC Absolute 0.00 <0.10 K/mcL LAB HEMETOLOGY METHOD 08/19/2024 8:30 AM [facility] Neutrophils Relative 52.3 % LAB HEMETOLOGY METHOD 08/19/2024 8:30 AM [facility] LAB Lymphocytes Relative 27.2 % LAB HEMETOLOGY METHOD 08/19/2024 8:30 AM [facility] Monocytes Relative 13.3 % LAB HEMETOLOGY METHOD 08/19/2024 8:30 AM [facility] Eosinophils Relative 6.3 % LAB HEMETOLOGY METHOD 08/19/2024 8:30 AM [facility] Basophils Relative 0.6 % LAB HEMETOLOGY METHOD 08/19/2024 8:30 AM [facility] Immature Granulocytes Relative 0.3 % LAB HEMETOLOGY METHOD 08/19/2024 8:30 AM [facility] Neutrophils Absolute 1.65 1.50 - 7.00 K/mcL LAB HEMETOLOGY METHOD 08/19/2024 8:30 AM [facility] Lymphocytes Absolute 0.86(L) 1.00 - 5.00 K/mcL LAB HEMETOLOGY METHOD 08/19/2024 8:30 AM [facility] Monocytes Absolute 0.42 0.20 - 1.00 K/mcL LAB HEMETOLOGY METHOD 08/19/2024 8:30 AM [facility] Eosinophils Absolute 0.20 0.00 - 0.50 K/mcL LAB HEMETOLOGY METHOD 08/19/2024 8:30 AM [facility] Basophils Absolute 0.02 0.00 - 0.20 K/mcL LAB HEMETOLOGY METHOD 08/19/2024 8:30 AM [facility] LAB Immature Granulocytes Absolute 0.01 0.00 - 0.03 K/mcL LAB HEMETOLOGY METHOD 08/19/2024 8:30 AM [facility] Blood Venous blood specimen / Unknown 08/19/2024 6:12 AM EDT 08/19/2024 7:24 AM EDT us Jeramie Schwartz MD LAB BLOOD ORDERABLES Final Resul t [facility] [address] [place] [address], documented in this encounter Visit Diagnoses Diagnosis 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 unspecified duration, sequela (CMS/HCC V24) Other long term care pharmacist (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 documented in this encounter Care Teams Plastics Spreading Machine Operator Relationship Specialty Start Date End Date Jeramie Schwartz MD [address] [place] [address] Dr [address] [place], [place] PCP - General Internal Medicine 06/02/24 documented as of this encounter
--- OUTSIDE RECORDS SUMMARY | 2025-02-24 12:34 | XMS_ITS | Encounter Summary ---
Author Organization [facility] Address [address] [place] [address] Care Team Providers Care Medical Claims Specialist Name Role Phone Jeramie Schwartz MD Primary Care Provider [phone] Encounter Details Date Type Department Care Team (Late st Contact Info) Description 09/04/2024 Lab Requisition [facility] - Main Lab 299 [facility] [place] [address] Jeramie Schwartz MD [address] [place] [address] [address] [place], [place] Vitamin D deficiency, unspecified Social History [...] LAB HEMETOLOGY METHOD 09/04/2024 9:33 AM EDT [facility] RBC 4.20(L) 4.50 - 5.50 M/mcL LAB HEMETOLOGY METHOD 09/04/2024 9:33 AM EDT [facility] Hemoglobin 11.1(L) 13.5 - 17.5 g/dL LAB HEMETOLOGY METHOD 09/04/2024 9:33 AM EDT [facility] Hematocrit 36.0(L) 42.0 - 54.0 % LAB HEMETOLOGY METHOD 09/04/2024 9:33 AM EDT [facility] MCV 84.9 79.0 - 98.0 FL LAB HEMETOLOGY METHOD 09/04/2024 9:33 AM EDT [facility] MCH 26.2(L) 27.0 - 32.0 pcg LAB HEMETOLOGY METHOD 09/04/2024 9:33 AM EDT [facility] MCHC 30.8(L) 32.0 - 37.0 g/dL LAB HEMETOLOGY METHOD 09/04/2024 9:33 AM EDT [facility] RDW 17.7(H) 11.0 - 15.0 % LAB HEMETOLOGY [facility] 201 130 - 400 K/mcL LAB HEMETOLOGY METHOD 09/04/2024 9:33 AM EDT [facility] MPV LAB HEMETOLOGY METHOD 09/04/2024 9:33 AM EDT [facility] Comment:Not Measured NRBC 0.0 <1.0 % LAB HEMETOLOGY METHOD 09/04/2024 9:33 AM EDT [facility] NRBC Absolute 0.00 <0.10 K/mcL LAB HEMETOLOGY METHOD 09/04/2024 9:33 AM T [facility] Blood Venous blood specimen / Unknown 09/04/2024 7:32 AM EDT 09/04/2024 8:29 AM EDT us Jeramie Schwartz MD LAB BLOOD ORDERABLES Final Resul t [facility] [address] [place] [address], documented in this encounter Visit Diagnoses Diagnosis Vitamin D deficiency, unspecified documented in this encounter Care Teams Medical Claims Specialist Relationship Specialty Start Date End Date Jeramie Schwartz MD [address] [place] [address] Dr [address] [place] PCP - General Internal Medicine 06/02/24 documented as of this encounter
--- OUTSIDE RECORDS SUMMARY | 2025-02-24 12:34 | XMS_ITS | Encounter Summary ---
Author Organization [facility] Address [address] [place] [address] Care Team Providers Care Race Car Mechanic Name Role Phone Jeramie Schwartz MD Primary Care Provider [phone] Encounter Details Date Type Department Care Team (Late st Contact Info) Description 08/25/2024 Lab Requisition [facility] - Main Lab 299 [facility] [place] [address] Jeramie Schwartz MD [address] [place] [address] Dr [address] [place] Other terminal makeup operator (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 Social History Tobacco [...] PREGABALIN Routine 08/25/2024 5:20 AM EDT Other terminal makeup operator (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 LEVETIRACETAM LEVEL Routine 08/25/2024 [...] 08/28/2024 5:05 PM EDT Performed at: - [employer] [address] [place] [id number] Terminal Gauger: [facility], Phone: [phone] Jeramie Schwartz MD LAB BLOOD ORDERABLES Final Resul t Performing Organization Address City/[facility] Co de Phone Number [id number] * Levetiracetam level (08/25/2024 5:20 AM EDT) [facility] Levetiracetam 12.0 3.0 - 60.0 ug/mL 08/27/2024 5:48 AM EDT [facility] Comment: Steady state trough serum or plasma levels following doses of 1000 to 3000 mg/Day: 3 to 37 ug/mL. The same dosage regimen will typically result in peak levels of 10 to 60 ug/mL, at approximately 1.5 hours post dose. If applicable, any drug confirmation testing reported here was developed and the performance characteristics determined by [facility]. This confirmation testing has not been cleared or approved by the FDA. The laboratory is regulated under CLIA as qualified to perform high-complexity testing. This test is used for patient testing purposes. It should not be regarded as investigational or for research. Test performed at [facility], [address] , [place] [address] Marcy Abarca MD, PhD - Hvac Project Engineer Blood Venous blood specimen / Unknown 08/25/2024 5:20 AM EDT 08/25/2024 6:33 AM EDT us Jeramie Schwartz MD LAB BLOOD ORDERABLES Final Resul t Performing Organization Address City/[facility] Co de Phone Number [facility] [address] [place] [address] documented in this encounter Visit Diagnoses Diagnosis Other terminal makeup operator (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 documented in this encounter Care Teams Race Car Mechanic Relationship Specialty Start Date End Date Jeramie Schwartz MD [address] [place] [address] Dr [address] [place] PCP - General Internal Medicine 06/02/24 documented as of this encounter
--- OUTSIDE RECORDS SUMMARY | 2025-02-24 12:35 | XMS_ITS | Encounter Summary ---
Author Organization [facility] Address [address] [place] [address] Care Team Providers Care Bond Clerk Name Role Phone Jeramie Schwartz MD Primary Care Provider [phone] Encounter Details Date Type Department Care Team (Late st Contact Info) Description 03/26/2024 Lab Requisition [facility] - Main Lab [address] [place] [address] Jeramie Schwartz MD [address] [place] [address] Dr [address] [place] Diffuse traumatic brain injury with loss [...] AM EST) WBC 3.0(L) 4.8 - 10.8 K/[facility] LAB HEMETOLOGY METHOD 03/26/2024 7:46 AM EST [facility] RBC 3.80(L) 4.50 - 5.50 M/mcL LAB HEMETOLOGY METHOD 03/26/2024 7:46 AM [facility] Hemoglobin 9.8(L) 13.5 - 17.5 g/dL LAB HEMETOLOGY METHOD 03/26/2024 7:46 AM [facility] Hematocrit 31.5(L) 42.0 - 54.0 % LAB HEMETOLOGY METHOD 03/26/2024 7:46 AM [facility] MCV 83.8 79.0 - 98.0 FL LAB HEMETOLOGY METHOD 03/26/2024 7:46 AM [facility] MCH 26.1(L) 27.0 - 32.0 pcg LAB HEMETOLOGY METHOD 03/26/2024 7:46 AM [facility] MCHC 31.1(L) 32.0 - 37.0 g/dL LAB HEMETOLOGY METHOD 03/26/2024 7:46 AM [facility] RDW 15.9(H) 11.0 - 15.0 % LAB HEMETOLOGY METHOD 03/26/2024 7:46 AM [facility] Platelets 263 130 - 400 K/mcL LAB HEMETOLOGY METHOD 03/26/2024 7:46 AM [facility] MPV 9.7 7.0 - 11.0 FL LAB HEMETOLOGY METHOD 03/26/2024 7:46 AM [facility] NRBC 0.0 <1.0 % LAB HEMETOLOGY METHOD 03/26/2024 7:46 AM [facility] NRBC Absolute 0.00 <0.10 K/mcL LAB HEMETOLOGY METHOD 03/26/2024 7:46 AM [facility] Neutrophils Relative 47.8 % LAB HEMETOLOGY METHOD 03/26/2024 7:46 AM [facility] Lymphocytes Relative 26.7 % LAB HEMETOLOGY METHOD 03/26/2024 7:46 AM [facility] Monocytes Relative 14.9 % LAB HEMETOLOGY METHOD 03/26/2024 7:46 AM [facility] Eosinophils Relative 9.6 % LAB HEMETOLOGY METHOD 03/26/2024 7:46 AM [facility] Basophils Relative 0.7 % LAB HEMETOLOGY METHOD 03/26/2024 7:46 AM [facility] Immature Granulocytes Relative 0.3 % LAB HEMETOLOGY METHOD 03/26/2024 7:46 AM [facility] Neutrophils Absolute 1.45(L) 1.50 - 7.00 K/mcL LAB HEMETOLOGY METHOD 03/26/2024 7:46 AM [facility] Lymphocytes Absolute 0.81(L) 1.00 - 5.00 K/mcL LAB HEMETOLOGY METHOD 03/26/2024 7:46 AM [facility] Monocytes Absolute 0.45 0.20 - 1.00 K/mcL LAB HEMETOLOGY METHOD 03/26/2024 7:46 AM [facility] Eosinophils Absolute 0.29 0.00 - 0.50 K/mcL LAB HEMETOLOGY METHOD 03/26/2024 7:46 AM [facility] Basophils Absolute 0.02 0.00 - 0.20 K/mcL LAB HEMETOLOGY METHOD 03/26/2024 7:46 AM [facility] Immature Granulocytes Absolute 0.01 0.00 - 0.03 K/mcL LAB HEMETOLOGY METHOD 03/26/2024 7:46 AM [facility] Blood Venous blood specimen / Unknown 03/26/2024 6:55 AM EST 03/26/2024 7:35 AM EST us Jeramie Schwartz MD LAB BLOOD ORDERABLES Final Resul t [facility] [address] [place] [address], documented in this encounter Visit Diagnoses Diagnosis 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 unspecified duration, sequela (CMS/HCC V24) documented in this encounter Care Teams Bond Clerk Relationship Specialty Start Date End Date Jeramie Schwartz MD [address] [place] [address] Dr [address] [place] PCP - General Internal Medicine 06/02/24 documented as of this encounter
--- OUTSIDE RECORDS SUMMARY | 2025-02-24 12:35 | XMS_ITS | Encounter Summary ---
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 Social History Tobacco Use [...] DIFFERENTIAL Routine 09/17/2024 5:30 AM EDT 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 CBC AND DIFFERENTIAL Routine 09/17/2024 5:30 AM EDT 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 documented in this encounter Results * (ABNORMAL) CBC auto differential (09/17/2024 5:30 AM EDT) WBC 2.9(L) 4.8 - 10.8 K/[facility] LAB HEMETOLOGY METHOD 09/17/2024 7:42 AM EDT [facility] RBC 4.50 4.50 - 5.50 M/[facility] LAB HEMETOLOGY METHOD 09/17/2024 7:42 AM EDT [facility] Hemoglobin 11.6(L) 13.5 - 17.5 g/dL LAB HEMETOLOGY METHOD 09/17/2024 7:42 AM [facility] Hematocrit 37.5(L) 42.0 - 54.0 % LAB HEMETOLOGY METHOD 09/17/2024 7:42 AM [facility] MCV 84.1 79.0 - 98.0 FL LAB HEMETOLOGY METHOD 09/17/2024 7:42 AM [facility] MCH 26.0(L) 27.0 - 32.0 pcg LAB HEMETOLOGY METHOD 09/17/2024 7:42 AM [facility] MCHC 30.9(L) 32.0 - 37.0 g/dL LAB HEMETOLOGY METHOD 09/17/2024 7:42 AM [facility] RDW 16.8(H) 11.0 - 15.0 % LAB HEMETOLOGY METHOD 09/17/2024 7:42 AM [facility] Platelets 233 130 - 400 K/mcL LAB HEMETOLOGY METHOD 09/17/2024 7:42 AM [facility] MPV 11.0 7.0 - 11.0 FL LAB HEMETOLOGY METHOD 09/17/2024 7:42 AM [facility] NRBC 0.0 <1.0 % LAB HEMETOLOGY METHOD 09/17/2024 7:42 AM [facility] NRBC Absolute 0.00 <0.10 K/mcL LAB HEMETOLOGY METHOD 09/17/2024 7:42 AM [facility] Neutrophils Relative 48.3 % LAB HEMETOLOGY METHOD 09/17/2024 7:42 AM [facility] Lymphocytes Relative 27.9 % LAB HEMETOLOGY METHOD 09/17/2024 7:42 AM [facility] Monocytes Relative 15.6 % LAB HEMETOLOGY METHOD 09/17/2024 7:42 AM EDT [facility] Eosinophils Relative 7.5 % LAB HEMETOLOGY METHOD 09/17/2024 7:42 AM EDT [facility] Basophils Relative 0.7 % LAB HEMETOLOGY METHOD 09/17/2024 7:42 AM EDT [facility] Immature Granulocytes Relative 0.0 % LAB HEMETOLOGY METHOD 09/17/2024 7:42 AM EDT [facility] Neutrophils Absolute 1.42(L) 1.50 - 7.00 K/mcL LAB HEMETOLOGY METHOD 09/17/2024 7:42 AM EDT [facility] Lymphocytes Absolute 0.82(L) 1.00 - 5.00 K/mcL LAB HEMETOLOGY METHOD [facility]24 [facility] Monocytes Absolute 0.46 0.20 - 1.00 K/mcL LAB HEMETOLOGY METHOD 09/17/2024 7:42 AM EDT [facility] Eosinophils Absolute 0.22 0.00 - 0.50 K/mcL LAB HEMETOLOGY METHOD 09/17/2024 7:42 AM [facility] Basophils Absolute 0.02 0.00 - 0.20 K/mcL LAB HEMETOLOGY METHOD 09/17/2024 7:42 AM EDT [facility] Immature Granulocytes Absolute 0.00 0.00 - 0.03 K/mcL LAB HEMETOLOGY METHOD 09/17/2024 7:42 AM T [facility] Blood Venous blood specimen / Unknown 09/17/2024 5:30 AM EDT 09/17/2024 6:43 AM EDT us Jeramie Schwartz MD LAB BLOOD ORDERABLES Final Resul t [facility] [address] [place] [address], [place] [phone] documented in this encounter Visit Diagnoses Diagnosis Other senior care (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 documented in this encounter Care Teams Link And Link Knitting Machine Operator Relationship Specialty Start Date End Date Jeramie Schwartz MD [address] [place] [address] Dr [address] [place] PCP - General Internal Medicine 06/02/24 documented as of this encounter
--- OUTSIDE RECORDS SUMMARY | 2025-02-24 12:35 | XMS_ITS | Encounter Summary ---
Author Organization [facility] Address [address] [place] [address] Care Team Providers Care Manual Training Teacher Name Role Phone Jeramie Schwartz MD Primary Care Provider Encounter Details Date Type Department Care Team (Late st Contact Info) Description 04/08/2024 Lab Requisition [facility] - Main Lab 299 [facility] [place] [address] Jeramie Schwartz MD [address] [place] [address] [address] [place], [place] Diffuse traumatic brain injury with loss of [...] % LAB HEMETOLOGY METHOD 04/08/2024 9:53 AM [facility] Bands % 1.0 % LAB HEMETOLOGY METHOD 04/08/2024 9:53 AM [facility] Lymphocytes % 34.0 % LAB HEMETOLOGY METHOD 04/08/2024 9:53 AM [facility] Monocytes % 15.0 % LAB HEMETOLOGY METHOD 04/08/2024 9:53 AM [facility] Eosinophils % 16.0 % LAB HEMETOLOGY METHOD 04/08/2024 9:53 AM [facility] Basophils % 1.0 % LAB HEMETOLOGY METHOD 04/08/2024 9:53 AM [facility] Neutrophils Absolute Manual 0.88(L) 1.50 - 7.00 K/mcL LAB HEMETOLOGY METHOD 04/08/2024 9:53 AM [facility] Bands Absolute Manual 0.03(H) 0.00 - 0.00 K/mcL LAB HEMETOLOGY METHOD 04/08/2024 9:53 AM [facility] Lymphocytes Absolute 0.88(L) 1.00 - 5.00 K/mcL LAB HEMETOLOGY METHOD 04/08/2024 9:53 AM [facility] Monocytes Absolute Manual 0.39 0.20 - 1.00 K/mcL LAB HEMETOLOGY METHOD 04/08/2024 9:53 AM [facility] Eosinophils Absolute Manual 0.42 0.00 - 0.50 K/mcL LAB HEMETOLOGY METHOD 04/08/2024 9:53 AM [facility] Basophils Absolute Manual 0.03 0.00 - 0.20 K/mcL LAB HEMETOLOGY METHOD 04/08/2024 9:53 AM [facility] Rbc Morphology Present( A) Consistent with indices, Normal for [place] LAB HEMETOLOGY METHOD 04/08/2024 9:53 AM [facility] Platelet Morphology - WAM See Note(A) Normal LAB HEMETOLOGY METHOD 04/08/2024 9:53 AM [facility] Comment:PLT: Normal Ovalocytes Present 11 - 15%(A) (none) LAB HEMETOLOGY METHOD 04/08/2024 9:53 AM [facility] Blood Venous blood specimen / Unknown 04/08/2024 6:31 AM EST 04/08/2024 8:43 AM EST us Jeramie Schwartz MD LAB BLOOD ORDERABLES Final Resul t Performing Organization Address City/[facility]/ZIP Co de Phone Number [facility] [address] [place] [address], [place] [phone] * Lavender tube (04/08/2024 6:31 AM EST) Extra Tube Hold for add-ons. 04/08/2024 10:01 AM EST [facility] Comment:Auto resulted. Blood Venous blood specimen / Unknown 04/08/2024 6:31 AM EST 04/08/2024 8:43 AM EST us Jeramie Schwartz MD LAB BLOOD ORDERABLES Final Resul t Performing Organization Address City/[facility]/ZIP Co de Phone Number [facility] [address] [place] [address], [place] [phone] * (ABNORMAL) CBC auto differential (04/08/2024 6:31 AM EST) WBC 2.6(L) 4.8 - 10.8 K/mcL LAB HEMETOLOGY METHOD 04/08/2024 9:53 AM [facility] RBC 3.80(L) 4.50 - 5.50 M/mcL LAB HEMETOLOGY METHOD 04/08/2024 9:53 AM [facility] Hemoglobin 9.6(L) 13.5 - 17.5 g/dL LAB HEMETOLOGY METHOD 04/08/2024 9:53 AM [facility] Hematocrit 31.5(L) 42.0 - 54.0 % LAB HEMETOLOGY METHOD 04/08/2024 9:53 AM [facility] MCV 83.6 79.0 - 98.0 FL LAB HEMETOLOGY METHOD 04/08/2024 9:53 AM [facility] MCH 25.5(L) 27.0 - 32.0 pcg LAB HEMETOLOGY METHOD 04/08/2024 9:53 AM [facility] MCHC 30.5(L) 32.0 - 37.0 g/dL LAB HEMETOLOGY METHOD 04/08/2024 9:53 AM [facility] RDW 16.3(H) 11.0 - 15.0 % LAB HEMETOLOGY METHOD 04/08/2024 9:53 AM [facility] Platelets 338 130 - 400 K/mcL LAB HEMETOLOGY METHOD 04/08/2024 9:53 AM [facility] MPV 11.9(H) 7.0 - 11.0 FL LAB HEMETOLOGY METHOD 04/08/2024 9:53 AM [facility] NRBC 0.0 <1.0 % LAB HEMETOLOGY METHOD 04/08/2024 9:53 AM [facility] NRBC Absolute 0.00 <0.10 K/mcL LAB HEMETOLOGY METHOD 04/08/2024 9:53 AM [facility] Blood Venous blood specimen / Unknown 04/08/2024 6:31 AM EST 04/08/2024 8:43 AM EST us Jeramie Schwartz MD LAB BLOOD ORDERABLES Final Resul t Performing Organization Address [facility]/ZIP Co de Phone Number [facility] [address] [place] [address], [place] [phone] * Hemoglobin A1c (04/08/2024 6:31 AM EST) Hemoglobin A1C 4.3 <6.5 % LAB CHEMISTRY METHOD 04/08/2024 12:45 PM EST [facility] Mean Bld Glu Estim. 77 mg/dL LAB CHEMISTRY METHOD 04/08/2024 12:45 PM EST [facility] Blood Venous blood specimen / Unknown 04/08/2024 6:31 AM EST 04/08/2024 8:43 AM EST us Jeramie Schwartz MD LAB BLOOD ORDERABLES Final Resul t Performing Organization Address [facility]/ZIP Co de Phone Number [facility] [address] [place] [address], [place] [phone] documented in this encounter Visit Diagnoses Diagnosis 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 unspecified duration, sequela (CMS/HCC V24) documented in this encounter Care Teams Manual Training Teacher Relationship Specialty Start Date End Date Jeramie Schwartz MD [address] [place] [address] Dr [address] [place] PCP - General Internal Medicine 06/02/24 documented as of this encounter
--- OUTSIDE RECORDS SUMMARY | 2025-02-24 12:35 | XMS_ITS | Encounter Summary ---
Author Organization [facility] Address [address] [place] [address] Care Team Providers Care Collector Of Aquarium Specimens Name Role Phone Jeramie Schwartz MD Primary Care Provider [phone] Encounter Details Date Type Department Care Team (Late st Contact Info) Description 11/26/2024 Lab Requisition [facility] - Main Lab [address] [facility] [place] [address] Jeramie Schwartz MD [address] [place] [address] Dr [address] [place] Feeling of incomplete bladder emptying Social History [...] % LAB [facility] Lymphocytes % 24.0 % LAB HEMETOLOGY METHOD 11/26/2024 8:26 AM [facility] Reactive Lymphocyte 4.00 % LAB HEMETOLOGY METHOD 11/26/2024 8:26 AM [facility] Monocytes % 10.0 % LAB HEMETOLOGY METHOD 11/26/2024 8:26 AM [facility] Eosinophils % 2.0 % LAB HEMETOLOGY METHOD 11/26/2024 8:26 AM [facility] Basophils % 2.0 % LAB HEMETOLOGY METHOD 11/26/2024 8:26 AM [facility] Neutrophils Absolute Manual 1.33(L) 1.50 - 7.00 K/mcL LAB HEMETOLOGY METHOD 11/26/2024 8:26 AM [facility] Lymphocytes Absolute 0.55(L) 1.00 - 5.00 K/mcL LAB HEMETOLOGY METHOD 11/26/2024 8:26 AM [facility] Reactive Lymph Abs Manual 0.09(H) 0.00 - 0.00 lym LAB HEMETOLOGY METHOD 11/26/2024 8:26 AM [facility] Monocytes Absolute Manual 0.23 0.20 - 1.00 K/mcL LAB HEMETOLOGY METHOD 11/26/2024 8:26 AM [facility] Eosinophils Absolute Manual 0.05 0.00 - 0.50 K/mcL LAB HEMETOLOGY METHOD 11/26/2024 8:26 AM EDT [facility] Basophils Absolute Manual 0.05 0.00 - 0.20 K/mcL LAB HEMETOLOGY METHOD 11/26/2024 8:26 AM EDT [facility] Blood Venous blood specimen / Unknown 11/26/2024 6:20 AM EDT 11/26/2024 7:28 AM EDT us Jeramie Schwartz MD LAB BLOOD ORDERABLES Final Resul t Performing Organization Address [facility] Co de Phone Number [facility] [address] [place] [address], [place] [phone] * Pathology review, blood smear (11/26/2024 6:20 [...] correlation is recommended. 11/26/2024 9:40 AM EDT [facility] Blood Venous blood specimen / Unknown 11/26/2024 6:20 AM EDT 11/26/2024 7:28 AM EDT us Jeramie Schwartz MD LAB BLOOD ORDERABLES Final Resul t Performing Organization Address City/[facility]/ZIP Co de Phone Number [facility] [address] [place] [address], * (ABNORMAL) CBC auto differential (11/26/2024 6:20 AM EDT) [facility] WBC 2.3(L) 4.8 - 10.8 K/mcL LAB HEMETOLOGY METHOD 11/26/2024 8:26 AM [facility] RBC 5.00 4.50 - 5.50 M/mcL LAB HEMETOLOGY METHOD 11/26/2024 8:26 AM [facility] Hemoglobin 12.7(L) 13.5 - 17.5 g/dL LAB HEMETOLOGY METHOD 11/26/2024 8:26 AM [facility] Hematocrit 40.4(L) 42.0 - 54.0 % LAB HEMETOLOGY METHOD 11/26/2024 8:26 AM [facility] MCV 81.6 79.0 - 98.0 FL LAB HEMETOLOGY METHOD 11/26/2024 8:26 AM [facility] MCH 25.7(L) 27.0 - 32.0 pcg LAB HEMETOLOGY METHOD 11/26/2024 8:26 AM [facility] MCHC 31.4(L) 32.0 - 37.0 g/dL LAB HEMETOLOGY METHOD 11/26/2024 8:26 AM [facility] RDW 16.3(H) 11.0 - 15.0 % LAB HEMETOLOGY METHOD 11/26/2024 8:26 AM [facility] Platelets 243 130 - 400 K/mcL LAB HEMETOLOGY METHOD 11/26/2024 8:26 AM [facility] MPV 10.7 7.0 - 11.0 FL LAB HEMETOLOGY METHOD 11/26/2024 8:26 AM [facility] NRBC 0.0 <1.0 % LAB HEMETOLOGY METHOD 11/26/2024 8:26 AM EDT [facility] NRBC Absolute 0.00 <0.10 K/mcL LAB HEMETOLOGY METHOD 11/26/2024 8:26 AM EDT [facility] Blood Venous blood specimen / Unknown 11/26/2024 6:20 AM EDT 11/26/2024 7:28 AM EDT us Jeramie Schwartz MD LAB BLOOD ORDERABLES Final Resul t Performing Organization Address [facility]/ZIP Co de Phone Number [facility] [address] [place] [address], * Prostate specific antigen diagnostic (11/26/2024 6:20 AM EDT) PSA 0.64 0.00 - 4.00 ng/mL LAB CHEMISTRY METHOD 11/26/2024 10:50 AM EDT [facility] Blood Venous blood specimen / Unknown 11/26/2024 6:20 AM EDT 11/26/2024 7:28 AM EDT Narrative [facility] - 11/26/2024 10:50 AM EDT The Siemens Advia Centaur Chemiluminescent Immunoassay is used. Results obtained with different assay methods or kits cannot be used interchangeably. Results cannot be interpreted as absolute evidence of the presence or absence of malignant disease. us Jeramie Schwartz MD LAB BLOOD ORDERABLES Final Resul t [facility] [address] [place] [address], * BUN (11/26/2024 6:20 AM EDT) BUN 16 5 - 25 mg/dL LAB CHEMISTRY METHOD 11/26/2024 8:26 AM EDT [facility] Blood Venous blood specimen / Unknown 11/26/2024 6:20 AM EDT 11/26/2024 7:28 AM EDT us Jeramie Schwartz MD LAB BLOOD ORDERABLES Final Resul t Performing Organization Address [facility] de Phone Number [facility] [address] [place] [address], [place] [phone] * Creatinine (11/26/2024 6:20 AM EDT) Creatinine 1.02 0.70 - 1.30 mg/dL LAB CHEMISTRY METHOD 11/26/2024 8:26 AM EDT [facility] eGFR 80 >=60 mL/min/1. 73m2 LAB CHEMISTRY METHOD 11/26/2024 8:26 AM EDT [facility] Comment:Calculation based on the Chronic Kidney Disease Epidemiology Collaboration (CKD-EPI) equation refit without adjustment for race. Blood Venous blood specimen / Unknown 11/26/2024 6:20 AM EDT 11/26/2024 7:28 AM EDT us Jeramie Schwartz MD LAB BLOOD ORDERABLES Final Resul t Performing Organization Address [facility] de Phone Number [facility] [address] [place] [address], [place] [phone] documented in this encounter Visit Diagnoses Diagnosis Feeling of incomplete bladder emptying documented in this encounter Care Teams Collector Of Aquarium Specimens Relationship Specialty Start Date End Date Jeramie Schwartz MD [address] [place] [address] Dr Janis Chaudhry [place] PCP - General Internal Medicine 06/02/24 documented as of this encounter
--- OUTSIDE RECORDS SUMMARY | 2025-02-24 12:35 | XMS_ITS | Encounter Summary ---
Author Organization [employer] Address [address] [place] [address] Care Team Providers Care Wireless Retail Manager Name Role Phone Jeramie Schwartz MD Primary Care Provider [phone] Encounter Details Date Type Department Care Team (Latest Contact Info) Description 01/14/2025 Lab Requisition [facility] - Main Lab [address] [facility] [place] [address] Jeramie Schwartz MD [address] [place] [address] Dr [address] [place] Type 2 diabetes mellitus with mild nonproliferative [...] CBC auto differential (01/14/2025 6:33 AM EDT) [facility] WBC 5.6 4.8 - 10.8 K/mcL LAB HEMETOLOGY METHOD 01/14/2025 8:09 AM [facility] RBC 5.40 4.50 - 5.50 M/mcL LAB HEMETOLOGY METHOD 01/14/2025 8:09 AM [facility] Hemoglobin 13.8 13.5 - 17.5 g/dL LAB HEMETOLOGY METHOD 01/14/2025 8:09 AM [facility] Hematocrit 44.6 42.0 - 54.0 % LAB HEMETOLOGY METHOD 01/14/2025 8:09 AM [facility] MCV 82.4 79.0 - 98.0 FL LAB HEMETOLOGY METHOD 01/14/2025 8:09 AM [facility] MCH 25.5(L) 27.0 - 32.0 pcg LAB HEMETOLOGY METHOD 01/14/2025 8:09 AM [facility] MCHC 30.9(L) 32.0 - 37.0 g/dL LAB HEMETOLOGY METHOD 01/14/2025 8:09 AM [facility] RDW 17.2(H) 11.0 - 15.0 % LAB HEMETOLOGY METHOD 01/14/2025 8:09 AM [facility] Platelets 149 130 - 400 K/mcL LAB HEMETOLOGY METHOD 01/14/2025 8:09 AM [facility] MPV LAB HEMETOLOGY METHOD 01/14/2025 8:09 AM [facility] Comment:Not Measured NRBC 0.0 <1.0 % LAB HEMETOLOGY METHOD 01/14/2025 8:09 AM [facility] NRBC Absolute 0.00 <0.10 K/mcL LAB HEMETOLOGY METHOD 01/14/2025 8:09 AM [facility] Neutrophils Relative 82.4 % LAB HEMETOLOGY METHOD 01/14/2025 8:09 AM [facility] Lymphocytes Relative 12.9 % LAB HEMETOLOGY METHOD 01/14/2025 8:09 AM [facility] Monocytes Relative 3.9 % LAB HEMETOLOGY METHOD 01/14/2025 8:09 AM [facility] Eosinophils Relative 0.2 % LAB HEMETOLOGY METHOD 01/14/2025 8:09 AM [facility] Basophils Relative 0.2 % LAB HEMETOLOGY METHOD 01/14/2025 8:09 AM [facility] Immature Granulocytes Relative 0.4 % LAB HEMETOLOGY METHOD 01/14/2025 8:09 AM [facility] Neutrophils Absolute 4.62 1.50 - 7.00 K/mcL LAB HEMETOLOGY METHOD 01/14/2025 8:09 AM [facility] Lymphocytes Absolute 0.72(L) 1.00 - 5.00 K/mcL LAB HEMETOLOGY METHOD 01/14/2025 8:09 AM [facility] Monocytes Absolute 0.22 0.20 - 1.00 K/mcL LAB HEMETOLOGY METHOD 01/14/2025 8:09 AM [facility] Eosinophils Absolute 0.01 0.00 - 0.50 K/mcL LAB HEMETOLOGY METHOD 01/14/2025 8:09 AM [facility] Basophils Absolute 0.01 0.00 - 0.20 K/mcL LAB HEMETOLOGY METHOD 01/14/2025 8:09 AM [facility] Immature Granulocytes Absolute 0.02 0.00 - 0.03 K/mcL LAB HEMETOLOGY METHOD 01/14/2025 8:09 AM [facility] Blood Venous blood specimen / Unknown 01/14/2025 6:33 AM EDT 01/14/2025 7:58 AM EDT us Jeramie Schwartz MD LAB BLOOD ORDERABLES Final Resul t Performing Organization Address [facility] Co de Phone Number [facility] [address] [place] [address], [place] [phone] * Hemoglobin A1c (01/14/2025 6:33 AM EDT) Hemoglobin A1C 5.9 <6.5 % LAB CHEMISTRY METHOD 01/14/2025 11:[address] [facility] Mean Bld Glu Estim. 123 mg/dL LAB CHEMISTRY METHOD 01/14/2025 11:[address] [facility] Blood Venous blood specimen / Unknown 01/14/2025 6:33 AM EDT 01/14/2025 7:58 AM EDT us Jeramie Schwartz MD LAB BLOOD ORDERABLES Final Resul t Performing Organization Address [facility] Co de Phone Number [facility] [address] [place] [address], [place] [phone] documented in this encounter Visit Diagnoses Diagnosis Type 2 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, left eye (CMS/[facility] V24, [facility] V28) documented in this encounter Care Teams Wireless Retail Manager Relationship Specialty Start Date End Date Jeramie Schwartz MD [address] [place] [address] Dr [address] [place] PCP - General Internal Medicine 06/02/24 documented as of this encounter
--- OUTSIDE RECORDS SUMMARY | 2025-02-24 12:35 | XMS_ITS | Encounter Summary ---
Author Organization [facility] Address [address] [place] [address] Care Team Providers Care Headmaster/Mistress Name Role Phone Jeramie Schwartz MD Primary Care Provider [phone] Encounter Details Date Type Department Care Team (Late st Contact Info) Description 02/24/2025 Lab Requisition [facility] - Main Lab [address] [facility] [place] [address] Jeramie Schwartz MD [address] [place] [address] Dr [address] [place], [place] Other fecal abnormalities; Vitamin D deficiency, unspecified; Hyperlipidemia, unspecified; Encounter for screening for other suspected endocrine disorder Social History Tobacco Use Types Packs/Day Years [...] Procedure Name Priority Date/Time Associated Diagnosis Comments LIPID PANEL WITH REFLEX TO DIRECT LDL Routine 02/24/2025 6:50 AM EDT Other fecal abnormalities Vitamin D deficiency, unspecified Hyperlipidemia, unspecified Encounter for screening for other suspected endocrine disorder CBC WITH AUTO DIFFERENTIAL Routine 02/24/2025 6:50 AM EDT Other fecal abnormalities Vitamin D deficiency, unspecified Hyperlipidemia, unspecified Encounter for screening for other suspected endocrine disorder VITAMIN D 25 HYDROXY Routine 02/24/2025 6:50 [...] for screening for other suspected endocrine disorder documented in this encounter Results * Vitamin D 25 hydroxy (02/24/2025 6:50 AM EDT) Pathologist [facility] Vit D, 25-Hydroxy 63.1 30.0 - 80.0 ng/mL LAB CHEMISTRY METHOD 02/24/2025 12:12 PM EDT [facility] Blood Venous blood specimen / Unknown 02/24/2025 6:50 AM EDT 02/24/2025 11:04 AM EDT us Jeramie Schwartz MD LAB BLOOD ORDERABLES Final Resul t [facility] [address] [place] [address], * (ABNORMAL) CBC auto differential (02/24/2025 6:50 AM EDT) [facility] WBC 4.5(L) 4.8 - 10.8 K/mcL LAB HEMETOLOGY METHOD 02/24/2025 8:20 AM EDT [facility] RBC 4.80 4.50 - 5.50 M/[facility] LAB HEMETOLOGY METHOD 02/24/2025 8:20 AM EDT [facility] Hemoglobin 12.6(L) 13.5 - 17.5 g/dL LAB HEMETOLOGY METHOD 02/24/2025 8:20 AM EDT [facility] Hematocrit 39.1(L) 42.0 - 54.0 % LAB HEMETOLOGY METHOD 02/24/2025 8:20 AM EDT [facility] MCV 81.8 79.0 - 98.0 FL LAB HEMETOLOGY METHOD 02/24/2025 8:20 AM EDT [facility] MCH 26.4(L) 27.0 - 32.0 pcg LAB HEMETOLOGY METHOD 02/24/2025 8:20 AM [facility] MCHC 32.2 32.0 - 37.0 g/dL LAB HEMETOLOGY METHOD 02/24/2025 8:20 AM [facility] RDW 15.7(H) 11.0 - 15.0 % LAB HEMETOLOGY METHOD 02/24/2025 8:20 AM [facility] Platelets 213 130 - 400 K/mcL LAB HEMETOLOGY METHOD 02/24/2025 8:20 AM [facility] MPV 10.1 7.0 - 11.0 FL LAB HEMETOLOGY METHOD 02/24/2025 8:20 AM [facility] NRBC 0.0 <1.0 % LAB HEMETOLOGY METHOD 02/24/2025 8:20 AM [facility] NRBC Absolute 0.00 <0.10 K/mcL LAB HEMETOLOGY METHOD 02/24/2025 8:20 AM [facility] Neutrophils Relative 73.3 % LAB HEMETOLOGY METHOD 02/24/2025 8:20 AM [facility] Lymphocytes Relative 18.8 % LAB HEMETOLOGY METHOD 02/24/2025 8:20 AM [facility] Monocytes Relative 6.3 % LAB HEMETOLOGY METHOD 02/24/2025 8:20 AM [facility] Eosinophils Relative 0.7 % LAB HEMETOLOGY METHOD 02/24/2025 8:20 AM [facility] Basophils Relative 0.7 % LAB HEMETOLOGY METHOD 02/24/2025 8:20 AM [facility] Immature Granulocytes Relative 0.2 % LAB HEMETOLOGY METHOD 02/24/2025 8:20 AM EDT [facility] Neutrophils Absolute 3.29 1.50 - 7.00 K/[facility] LAB HEMETOLOGY METHOD 02/24/2025 8:20 AM EDT [facility] Lymphocytes Absolute 0.84(L) 1.00 - 5.00 K/mcL LAB HEMETOLOGY METHOD 02/24/2025 8:20 AM EDT [facility] Monocytes Absolute 0.28 0.20 - 1.00 K/[facility] LAB HEMETOLOGY METHOD 02/24/2025 8:20 AM EDT [facility] Eosinophils Absolute 0.03 0.00 - 0.50 K/[facility] LAB HEMETOLOGY METHOD 02/24/2025 8:20 AM EDT [facility] Basophils Absolute 0.03 0.00 - 0.20 K/mcL LAB HEMETOLOGY METHOD 02/24/2025 8:20 AM EDT [facility] Immature Granulocytes Absolute 0.01 0.00 - 0.03 K/[facility] LAB HEMETOLOGY METHOD 02/24/2025 8:20 AM EDT [facility] Blood Venous blood specimen / Unknown 02/24/2025 6:50 AM EDT 02/24/2025 7:45 AM EDT us Jeramie Schwartz MD LAB BLOOD ORDERABLES Final Resul t [facility] [address] [place] [address], * Thyroid stimulating hormone (02/24/2025 6:50 AM EDT) TSH 2.29 0.40 - 4.00 mcIU/mL LAB CHEMISTRY METHOD 02/24/2025 12:12 PM EDT [facility] Blood Venous blood specimen / Unknown 02/24/2025 6:50 AM EDT 02/24/2025 7:45 AM EDT us Jeramie Schwartz MD LAB BLOOD ORDERABLES Final Resul t Performing Organization Address City/[facility]/ZIP Co de Phone Number [facility] [address] [place] [address], [place] [phone] * (ABNORMAL) Lipid panel with reflex to direct LDL (02/24/2025 6:50 AM EDT) Cholesterol 174 0 - 200 mg/dL LAB CHEMISTRY METHOD 02/24/2025 10:38 AM EDT [facility] Triglycerides 111 0 - 150 mg/dL LAB CHEMISTRY METHOD 02/24/2025 10:38 AM EDT [facility] HDL 36(L) >=40 mg/dL LAB CHEMISTRY METHOD 02/24/[facility]25 10:[facility] LDL Calculated 116(H) 0 - 100 mg/dL LAB CHEMISTRY METHOD 02/24/2025 10:38 AM EDT [facility] Comment:Estimated LDL Calcul ated using equation: Total cholesterol - HDL cholesterol - (Triglycerides/5) VLDL Cholesterol Marcus 22.2 mg/dL LAB CHEMISTRY METHOD 02/24/2025 10:38 AM T [facility] Non HDL Chol. (LDL+VLDL) 138 <145 mg/dL LAB CHEMISTRY METHOD 02/24/2025 10:38 AM [facility] Chol/HDL Ratio 4.8(H) 0.0 - 4.4 LAB CHEMISTRY METHOD 02/24/2025 10:38 AM T [facility] Blood Venous blood specimen / Unknown 02/24/2025 6:50 AM EDT 02/24/2025 7:45 AM EDT us Jeramie Schwartz MD LAB BLOOD ORDERABLES Final Resul t Performing Organization Address [facility]/ZIP Co de Phone Number [facility] [address] [place] [address], [place] [phone] documented in this encounter Visit Diagnoses Diagnosis Other fecal abnormalities Vitamin D deficiency, unspecified Hyperlipidemia, unspecified Encounter for screening for other suspected endocrine disorder documented in this encounter Care Teams Headmaster/Mistress Relationship Specialty Start Date End Date Jeramie Schwartz MD [address] [place] [address] Dr [address] [place] PCP - General Internal Medicine 06/02/24 documented as of this encounter
--- OUTSIDE RECORDS SUMMARY | 2025-02-24 12:35 | XMS_ITS | Encounter Summary ---
Author Organization [facility] Address [address] [place] [address] Care Team Providers Care Clinical Nurse Reviewer Name Role Phone Jeramie Shcwartz MD Primary Care Provider [phone] Encounter Details Date Type Department Care Team (Late st Contact Info) Description 02/01/[address] [facility] - Main Lab 299 [facility] [place] [address] Jeramie Schwartz MD [address] [place] [address] Dr [address] [place] Encounter for therapeutic drug level monitoring Social [...] Priority Date/Time Associated Diagnosis Comments PREGABALIN Routine 02/01/2025 7:00 AM EDT Encounter for therapeutic drug level monitoring LEVETIRACETAM LEVEL Routine 02/01/2025 7 :00 AM EDT Encounter for therapeutic drug level monitoring documented in this encounter Results * Levetiracetam level (02/01/2025 7:00 AM EDT) Levetiracetam 46.4 3.0 - 60.0 ug/mL 02/03/2025 9:06 AM EDT [facility] Comment: Steady state trough serum or [...] [facility], [address] , [place] [address] Marcy Abarca MD, PhD - Patch Finisher Blood Venous blood specimen / Unknown 02/01/2025 7:00 AM EDT 02/01/2025 7:55 AM EDT us Jeramie Schwartz MD LAB BLOOD ORDERABLES Final Resul t Performing Organization Address [facility] Co de Phone Number [facility] [address] [place] [address] * Pregabalin (02/01/2025 7:00 AM EDT) [facility] Pregabalin 6.9 ug/mL 02/03/2025 1:05 PM EDT [...] 1:05 PM EDT Performed at: 01 - [employer] [address] [place] [id number] Pol[employer]om[employer]ograph Tech: Michelle Jimenez [facility], Phone: [phone] us Jeramie Schwartz MD LAB BLOOD ORDERABLES Final Resul t [facility] documented in this encounter Visit Diagnoses Diagnosis Encounter for therapeutic drug level monitoring documented in this encounter Care Teams Clinical Nurse Reviewer Relationship Specialty Start Date End Date Jeramie Schwartz MD [address] [place] [address] Dr [address] [place] hCaudhry PCP - General Internal Medicine 06/02/24 documented as of this encounter
--- OUTSIDE RECORDS SUMMARY | 2025-02-24 12:35 | XMS_ITS | Encounter Summary ---
Author Organization [facility] Address [address] [place] [address] Care Team Providers Care Knitting Machine Fixer Head Name Role Phone Jeramie Schwartz MD Primary Care Provider Encounter Details Date Type Department Care Team (Late st Contact Info) Description 09/09/[address] [facility] - Main Lab 299 [facility] [place] [address] Jeramie Schwartz MD [address] [place] [address] Dr [address] [place] Diffuse traumatic brain injury with loss [...] K/mcL LAB HEMETOLOGY METHOD 09/09/2024 12:29 PM [facility] RBC 4.20(L) 4.50 - 5.50 M/mcL LAB HEMETOLOGY METHOD 09/09/2024 12:29 PM [facility] Hemoglobin 11.0(L) 13.5 - 17.5 g/dL LAB HEMETOLOGY METHOD 09/09/2024 12:29 PM [facility] Hematocrit 35.2(L) 42.0 - 54.0 % LAB HEMETOLOGY METHOD 09/09/2024 12:29 PM [facility] MCV 84.4 79.0 - 98.0 FL LAB HEMETOLOGY METHOD 09/09/2024 12:29 PM [facility] MCH 26.4(L) 27.0 - 32.0 pcg LAB HEMETOLOGY METHOD 09/09/2024 12:29 PM [facility] MCHC 31.3(L) 32.0 - 37.0 g/dL LAB HEMETOLOGY METHOD 09/09/2024 12:29 PM [facility] RDW 17.3(H) 11.0 - 15.0 % LAB HEMETOLOGY METHOD 09/09/2024 12:29 PM [facility] Platelets 193 130 - 400 K/mcL LAB HEMETOLOGY METHOD 09/09/2024 12:29 PM [facility] MPV 12.4(H) 7.0 - 11.0 FL LAB HEMETOLOGY METHOD 09/09/2024 12:29 PM [facility] NRBC 0.0 <1.0 % LAB HEMETOLOGY METHOD 09/09/2024 12:29 PM [facility] NRBC Absolute 0.00 <0.10 K/[facility] LAB HEMETOLOGY METHOD 09/09/2024 12:29 PM [facility] Neutrophils Relative 66.4 % LAB HEMETOLOGY METHOD 09/09/2024 12:29 PM [facility] Lymphocytes Relative 15.9 % LAB HEMETOLOGY METHOD 09/09/2024 12:29 PM [facility] Monocytes Relative 12.7 % LAB HEMETOLOGY METHOD 09/09/2024 12:29 PM [facility] Eosinophils Relative 4.2 % LAB HEMETOLOGY METHOD 09/09/2024 12:29 PM [facility] Basophils Relative 0.5 % LAB HEMETOLOGY METHOD 09/09/2024 12:29 PM [facility] Immature Granulocytes Relative 0.3 % LAB HEMETOLOGY METHOD 09/09/2024 12:29 PM [facility] Neutrophils Absolute 2.51 1.50 - 7.00 K/mcL LAB HEMETOLOGY METHOD 09/09/2024 12:29 PM [facility] Lymphocytes Absolute 0.60(L) 1.00 - 5.00 K/mcL LAB HEMETOLOGY METHOD 09/09/2024 12:29 PM [facility] Monocytes Absolute 0.48 0.20 - 1.00 K/mcL LAB HEMETOLOGY METHOD 09/09/2024 12:29 PM [facility] Eosinophils Absolute 0.16 0.00 - 0.50 K/mcL LAB HEMETOLOGY METHOD 09/09/2024 12:29 PM [facility] Basophils Absolute 0.02 0.00 - 0.20 K/mcL LAB HEMETOLOGY METHOD 09/09/2024 12:29 PM [facility] Immature Granulocytes Absolute 0.01 0.00 - 0.03 K/mcL LAB HEMETOLOGY METHOD 09/09/2024 12:29 PM [facility] Blood Venous blood specimen / Unknown 09/09/2024 6:15 AM EDT 09/09/2024 7:18 AM EDT Jeramie Schwartz MD LAB BLOOD ORDERABLES Final Resul t [facility] [address] [place] [address], documented in this encounter Visit Diagnoses Diagnosis 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 unspecified duration, sequela (CMS/HCC V24) Type 2 diabetes mellitus without complications (CMS/HCC V24, CMS/HCC V28) documented in this encounter Care Teams Knitting Machine Fixer Head Relationship Specialty Start Date End Date Jeramie Schwartz MD [address] [place] [address] Dr [address] [place] PCP - General Internal Medicine 06/02/24 documented as of this encounter
--- OUTSIDE RECORDS SUMMARY | 2025-02-24 12:35 | XMS_ITS | Encounter Summary ---
Author Organization [facility] Address [address] [place] [address] Care Team Providers Care Finishing Manager Name Role Phone Jeramie Schwartz MD Primary Care Provider Encounter Details Date Type Department Care Team (Late st Contact Info) Description 10/07/[address] 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 documented in this encounter Results * (ABNORMAL) CBC auto differential (10/07/2024 7:05 AM EDT) [facility] Signature WBC 8.6 4.8 - 10.8 K/[facility] LAB HEMETOLOGY METHOD 10/07/2024 8:47 AM EDT [facility] LAB RBC 4.80 4.50 - 5.50 M/[facility] LAB HEMETOLOGY METHOD 10/07/2024 8:47 AM [facility] LAB Hemoglobin 12.4(L) 13.5 - 17.5 g/dL LAB HEMETOLOGY METHOD 10/07/2024 8:47 AM [facility] LAB Hematocrit 39.5(L) 42.0 - 54.0 % LAB HEMETOLOGY METHOD 10/07/2024 8:47 AM [facility] LAB MCV 82.5 79.0 - 98.0 FL LAB HEMETOLOGY METHOD 10/07/2024 8:47 AM [facility] LAB MCH 25.9(L) 27.0 - 32.0 pcg LAB HEMETOLOGY METHOD 10/07/2024 8:47 AM [facility] LAB MCHC 31.4(L) 32.0 - 37.0 g/dL LAB HEMETOLOGY METHOD 10/07/2024 8:47 AM [facility] LAB RDW 16.0(H) 11.0 - 15.0 % LAB HEMETOLOGY METHOD 10/07/2024 8:47 AM [facility] LAB Platelets 182 130 - 400 K/mcL LAB HEMETOLOGY METHOD 10/07/2024 8:47 AM [facility] LAB MPV LAB HEMETOLOGY METHOD 10/07/2024 8:47 AM [facility] LAB Comment:Not Measured NRBC 0.2 <1.0 % LAB HEMETOLOGY METHOD 10/07/2024 8:47 AM [facility] LAB NRBC Absolute 0.02 <0.10 K/mcL LAB HEMETOLOGY METHOD 10/07/2024 8:47 AM [facility] LAB Neutrophils Relative 90.9 % LAB HEMETOLOGY METHOD 10/07/2024 8:47 AM [facility] LAB Lymphocytes Relative 4.1 % LAB HEMETOLOGY METHOD 10/07/2024 8:47 AM [facility] LAB Monocytes Relative 4.2 % LAB HEMETOLOGY METHOD 10/07/2024 8:47 AM [facility] LAB Eosinophils Relative 0.1 % LAB HEMETOLOGY METHOD 10/07/2024 8:47 AM [facility] Basophils Relative 0.2 % LAB HEMETOLOGY METHOD 10/07/2024 8:47 AM [facility] LAB Immature Granulocytes Relative 0.5 % LAB HEMETOLOGY METHOD 10/07/2024 8:47 AM [facility] LAB Neutrophils Absolute 7.79(H) 1.50 - 7.00 K/mcL LAB HEMETOLOGY METHOD 10/07/2024 8:47 AM [facility] Lymphocytes Absolute 0.35(L) 1.00 - 5.00 K/mcL LAB HEMETOLOGY METHOD 10/07/2024 8:47 AM [facility] Monocytes Absolute 0.36 0.20 - 1.00 K/mcL LAB HEMETOLOGY METHOD 10/07/2024 8:47 AM [facility] LAB Eosinophils Absolute 0.01 0.00 - 0.50 K/mcL LAB HEMETOLOGY METHOD 10/07/2024 8:47 AM [facility] Basophils Absolute 0.02 0.00 - 0.20 K/mcL LAB HEMETOLOGY METHOD 10/07/2024 8:47 AM [facility] LAB Immature Granulocytes Absolute 0.04(H) 0.00 - 0.03 K/mcL LAB HEMETOLOGY METHOD 10/07/2024 8:47 AM [facility] LAB Blood Venous blood specimen / Unknown 10/07/2024 7:05 AM EDT 10/07/2024 8:02 AM EDT Jeramie Schwartz MD LAB BLOOD ORDERABLES Final Resul t [facility] [address] [place] [address], [place] [phone] * SST tube (10/07/2024 7:05 AM EDT) Extra Tube Hold for add-ons. 10/07/2024 10:01 AM EDT [facility] LAB Comment:Auto resulted. Blood Venous blood specimen / Unknown 10/07/2024 7:05 AM EDT 10/07/2024 8:02 AM EDT Jeramie Schwartz MD LAB BLOOD ORDERABLES Final Resul t Performing Organization Address [facility] Co de Phone Number [facility] [address] [place] [address], [place] [phone] documented in this encounter Visit Diagnoses Diagnosis Other fpc (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 documented in this encounter Care Teams Finishing Manager Relationship Specialty Start Date End Date Jeramie Schwartz MD [address] [place], [place] PCP - General Internal Medicine 06/02/24 documented as of this encounter
--- OUTSIDE RECORDS SUMMARY | 2025-02-24 12:35 | XMS_ITS | Encounter Summary ---
Author Organization [facility] Address [address] [place] [address] Care Team Providers Care Framing Manager Name Role Phone Jeramie Schwartz MD Primary Care Provider [phone] Encounter Details Date Type Department Care Team (Late st Contact Info) Description 05/06/2024 Lab Requisition [facility] - Main Lab [address] [place] [address] Jeramie Schwartz MD [address] [place] [address] Dr [address] [place], [place] Diffuse traumatic brain injury with loss [...] AM EST) WBC 3.2(L) 4.8 - 10.8 K/[facility] LAB HEMETOLOGY METHOD 05/06/2024 10:[address] [facility] RBC 4.40(L) 4.50 - 5.50 M/mcL LAB HEMETOLOGY METHOD 05/06/2024 10:51 AM [facility] LAB Hemoglobin 11.0(L) 13.5 - 17.5 g/dL LAB HEMETOLOGY METHOD 05/06/2024 10:51 AM [facility] LAB Hematocrit 35.7(L) 42.0 - 54.0 % LAB HEMETOLOGY METHOD 05/06/2024 10:51 AM [facility] LAB MCV 81.7 79.0 - 98.0 FL LAB HEMETOLOGY METHOD 05/06/2024 10:51 AM [facility] LAB MCH 25.2(L) 27.0 - 32.0 pcg LAB HEMETOLOGY METHOD 05/06/2024 10:51 AM [facility] LAB MCHC 30.8(L) 32.0 - 37.0 g/dL LAB HEMETOLOGY METHOD 05/06/2024 10:51 AM [facility] LAB RDW 17.8(H) 11.0 - 15.0 % LAB HEMETOLOGY METHOD 05/06/2024 10:51 AM [facility] LAB Platelets 333 130 - 400 K/mcL LAB HEMETOLOGY METHOD 05/06/2024 10:51 AM [facility] LAB MPV 10.1 7.0 - 11.0 FL LAB HEMETOLOGY METHOD 05/06/2024 10:51 AM [facility] LAB NRBC 0.0 <1.0 % LAB HEMETOLOGY METHOD 05/06/2024 10:51 AM [facility] LAB NRBC Absolute 0.00 <0.10 K/mcL LAB HEMETOLOGY METHOD 05/06/2024 10:51 AM [facility] Neutrophils Relative 40.9 % LAB HEMETOLOGY METHOD 05/06/2024 10:51 AM [facility] LAB Lymphocytes Relative 35.1 % LAB HEMETOLOGY METHOD 05/06/2024 10:51 AM [facility] Monocytes Relative 13.9 % LAB HEMETOLOGY METHOD 05/06/2024 10:51 AM [facility] Eosinophils Relative 9.2 % LAB HEMETOLOGY METHOD 05/06/2024 10:51 AM [facility] Basophils Relative 0.6 % LAB HEMETOLOGY METHOD 05/06/2024 10:51 AM [facility] LAB Immature Granulocytes Relative 0.3 % LAB HEMETOLOGY METHOD 05/06/2024 10:51 AM [facility] LAB Neutrophils Absolute 1.29(L) 1.50 - 7.00 K/mcL LAB HEMETOLOGY METHOD 05/06/2024 10:51 AM [facility] LAB Lymphocytes Absolute 1.11 1.00 - 5.00 K/mcL LAB HEMETOLOGY METHOD 05/06/2024 10:51 AM [facility] LAB Monocytes Absolute 0.44 0.20 - 1.00 K/mcL LAB HEMETOLOGY METHOD 05/06/2024 10:51 AM [facility] LAB Eosinophils Absolute 0.29 0.00 - 0.50 K/mcL LAB HEMETOLOGY METHOD 05/06/2024 10:51 AM [facility] LAB Basophils Absolute 0.02 0.00 - 0.20 K/mcL LAB HEMETOLOGY METHOD 05/06/2024 10:51 AM [facility] LAB Immature Granulocytes Absolute 0.01 0.00 - 0.03 K/mcL LAB HEMETOLOGY METHOD 05/06/2024 10:51 AM [facility] Blood Venous blood specimen / Unknown 05/06/2024 9:05 AM EST 05/06/2024 10:16 AM EST us Jeramie Schwartz MD LAB BLOOD ORDERABLES Final Resul t [facility] [address] [place] [address], documented in this encounter Visit Diagnoses Diagnosis 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 unspecified duration, sequela (CMS/HCC V24) documented in this encounter Care Teams Framing Manager Relationship Specialty Start Date End Date Jeramie Schwartz MD [address] [place] [address] Dr [address] [place], [place] PCP - General Internal Medicine 06/02/24 documented as of this encounter
--- OUTSIDE RECORDS SUMMARY | 2025-02-24 12:35 | XMS_ITS | Encounter Summary ---
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 This confirmation testing has not been cleared or approved by the FDA. The laboratory is regulated under CLIA as qualified to perform high-complexity testing. This test is used for patient testing purposes. It should not be regarded as investigational or for research. Test performed at [facility], [address], [place], [place] [id number] Marcy Abarca MD, PhD - Maple Sugar Maker Blood Venous blood specimen / Unknown 09/11/2024 6:20 AM EDT 09/11/2024 6:55 AM EDT us Jeramie Schwartz MD LAB BLOOD ORDERABLES Final Resul t [facility] [address] [place] [address] documented in this encounter Visit Diagnoses Diagnosis Other chcf (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 documented in this encounter Care Teams Assistant Mechanic Relationship Specialty Start Date End Date Jeramie Schwartz MD [address] [place] [address] Dr [address] [place] PCP - General Internal Medicine 06/02/24 documented as of this encounter
== END 2025-02-24 10:34 | disposition home or self-care (01) ==
LOC: HO.HPS 10:13
PROVIDERS: PCP Hospitalist; Visit Provider Hospitalist
DX: J18.9 Pneumonia, unspecified organism (principal); J98.4 Other disorders of lung
CPT/HCPCS: 99214

== ENCOUNTER → 2025-02-24 10:12 | Outpatient (BNVA) | payer MEDICARE, MEDICAID, SELFPAY | PROVIDERS: PCP Hospitalist; Visit Provider Hospitalist | DX: J98.4 Other disorders of lung (principal); J18.9 Pneumonia, unspecified organism | CPT/HCPCS: 99212 ==

== ENCOUNTER 2025-03-09 11:22 | Outpatient (AMB) | payer MEDICARE, MEDICAID, SELFPAY ==
--- NOTE | 2025-03-09 11:27 | MHC.OFFVIS ---
Intake Visit Reasons: 3m/PSA/Bun&Creat Intake Note: Patient is Present for Follow Up Urology Medication: Tamsulosin, Vitamin C Antibiotic Allergies: None PVR: 359ml Records Management Specialist Required: No Food Safety Scientist: Food Safety Scientist Present Accompanied by: aligning inspector-[employer] Allergies No Known Drug Allergies Allergy (Unknown, Verified 03/09/25 21:00) none Medication List - Last Reconciled 03/09/25 by BELLO Zuñiga-MARTI acetaminophen 650 mg PO Q6H PRN alum-mag hydroxide-simeth 400-400-40 mg/5 mL (Mylanta Maximum Strength) 5 mL PO QID PRN ascorbic acid (vitamin C) 500 mg PO DAILY benztropine 0.5 mg PO BID bisacodyl (Dulcolax (bisacodyl)) 10 mg (2 x 5 mg) PO BEDTIME 2 days cholecalciferol (vitamin D3) 25 mcg PO DAILY ferrous sulfate 325 mg PO DAILY fluphenazine HCl 5 mg PO BID glucagon 1 mg subcut Q20M PRN guaifenesin (Etta-Tussin) 200 mg PO Q4H PRN levetiracetam ER 1,500 mg PO BID lorazepam 1 mg IV Q1H PRN metoprolol succinate ER 25 mg PO DAILY olanzapine 10 mg PO DAILY omeprazole 40 mg PO BID polyethylene glycol 3350 (Miralax) 238 grams PO ONCE 1 day pregabalin 300 mg PO BID sennosides (senna) 8.6 mg PO DAILY PRN sennosides (senna) 8.6 mg PO BEDTIME sodium phosphates 19-7 gram/118 mL (Fleet Enema) 118 mL NV DAILY PRN tamsulosin 0.8 mg (2 x 0.4 mg) PO BEDTIME 90 days HPI Comments Details: Silvio is a 69-year-old male patient of Dr. castelan who resides at [facility] in his accompanied by one of the staff members today as patient is a 1-1. He does have limited communication and therefore information was gathered from the chart in also the staff that is accompanied by the patient today. He has a past medical history of psychotic disorder, hyperlipidemia, DVT, epilepsy, diabetes, hypertension, and traumatic brain injury. He presents to the office today for follow-up. Of note, patient was seen approximately 4 months ago as a new patient for incomplete bladder emptying at which time a PSA, BUN, and creatinine were ordered for further assessment evaluation. The patient was also started on Flomax 0.4 mg at bedtime as patient was noted to have an increase in his postvoid residual during initial visit of 255 mL. In review of patient's MAR it does appear he is compliant with Flomax as prescribed. Most recent labs were reviewed with the patient today as noted and trended below. Unable to obtain urine for urinalysis today as patient unable to void. PVR 359 mL. Will obtain retroperitoneal ultrasound for further assessment evaluation as well as repeat BUN and creatinine. Will also increase Flomax. We did discuss incomplete bladder emptying/urinary retention. We discussed further treatment options and risks and benefits of these treatment options. Patient has baseline urinary status is self toileting. Patient and staff deny patient to have any bothersome urinary issues or concerns all questions were answered. BUN: 08/27 13, 01/27 11, 06/30 18, 10/28 26, 10/28 16, 10/28 10, 01/28 13 Creatinine: 08/27 0.86, 01/27 1.01, 06/30 0.93, 10/28 1.64, 10/28 0.97, 10/28 0.92, 01/28 1.08 PSA: 05/30 0.5, 11/27 0.6, 02/27 0.5 PFSH Medical History Dysphagia H/O urinary retention Lung density on x-ray Pancreatic cyst Psychotic disorder Hyperlipidemia DVT (deep venous thrombosis) Epilepsy Diabetes mellitus Hypertension TBI (traumatic brain injury) Social History Household Members: Other Housing: Snf Do you presently have visiting nurse or other home services: No Patient Tobacco Use Status: Tobacco use Unknown Advance Directives Date on File: 08/23/23 service: No Review of Systems Const Unobtainable due to mental condition and Unobtainable due to mental status Physical Exam Const General: cooperative, comfortable, no acute distress, well developed, alert and awake Orientation/consciousness: oriented to person Limitations: behavioral limitations HEENT Head: Yes normal to inspection Eyes General: appearance normal, both eyes and all related structures Neck Neck: Yes normal visual inspection Chest Chest palpation & inspection: normal inspection of the chest Resp Effort & Inspection: normal respiratory effort Cardio Rate: regular rate GI Inspection: Yes normal to inspection General: Yes no CVA tenderness Back/Spine/Pelvis Back: no CVA tenderness Skin General skin exam: no rashes or lesions noted Neuro General: oriented to person Extrem General: Yes normal to inspection Psych Appearance: well kempt Speech and movement: Slurred speech present Affect: normal affect Attitude: cooperative Thought process: Word salad present (speech) Insight: Limited insight present (Psych) and Poor insight present (Psych) Judgement: Limited judgement present (Psych) and Poor judgement present (Psych) Office Procedures Post Void Residual Post Residual Void Post Void Residual (PVR): [id number] Void Residual by ultrasound Assessment & Plan Assessment & Plan (1) Incomplete bladder emptying: Code(s): R33.9 - Retention of urine, unspecified Category: Medical Plan Unable to obtain urine for urinalysis today as patient unable to void PVR 359 mL. Will increase Flomax to 0.8 mg at bedtime. Will obtain repeat BUN and creatinine as well as PSA. Will obtain retroperitoneal ultrasound for further assessment evaluation. We did discussed potential causes of incomplete bladder emptying/urinary retention as well as further treatment options and risks and benefits of these treatment options. We discussed the importance of timed/scheduled voiding. Follow-up in 3 months with imaging, labs, and PVR; or sooner with any issues, concerns, and or questions. Orders: Orders AMB Post Void Residual by ultrasound 03/09/25 R33.9 - Retention of urine, unspecified Blood Urea Nitrogen 03/09/25 R39.15 - Urgency of urination Creatinine 03/09/25 R39.15 - Urgency of urination US retroperitoneal comp 03/09/25 R33.9 - Retention of urine, unspecified Medications: Changed From tamsulosin 0.4 mg PO BEDTIME 30 days 30 caps 3RF N40.1 - Benign prostatic hyperplasia with lower urinary tract symptoms, R35.1 - Nocturia To tamsulosin 0.8 mg (2 x 0.4 mg) PO BEDTIME 180 caps 1RF 90 days N40.1 - Benign prostatic hyperplasia with lower urinary tract symptoms, R35.1 - Nocturia Patient Instructions: The patient had an opportunity to ask questions regarding the treatment plan. All questions were answered. Physical exam, labs, and imaging were discussed and reviewed in detail. As well as risks, benefits, and discussion of treatment choices. No major barriers to understanding were identified. The patient expressed understanding and agreement with the above treatment plan. The patient was made aware they should contact our office by phone for worsening of their current condition, the appearance of new symptoms, or with any questions or concerns. Compliance is encouraged with any medications and follow up testing that is ordered. It is a privilege to be allowed the opportunity to participate in? your urological care.? Again, if you have any questions or concerns If you have any questions or concerns please do not hesitate to contact me. The office is [phone]. This note is constructed using voice recognition software. While every effort has been made to ensure accuracy spa director errors may have been included. Yours sincerely, DOT Zuñiga Coding Level of Care Code Est Pt Level 4 (34518) Complex EM visit Add On G2211 Diagnoses Incomplete bladder emptying R33.9 CPT Codes Post Residual Void - PVR CPT Code: 64649-Forl Void Residual by ultrasound ([id number])
== END 2025-03-09 11:59 | disposition home or self-care (01) ==
LOC: HO.HUSH 11:22
PROVIDERS: PCP Hospitalist; Visit Provider Nurse Practitioner Family
DX: R33.9 Retention of urine, unspecified (principal)
CPT/HCPCS: 99214; G2211

== ENCOUNTER → 2025-03-09 11:22 | Outpatient (BNVA) | payer MEDICARE, MEDICAID, SELFPAY | PROVIDERS: PCP Hospitalist; Visit Provider Nurse Practitioner Family | DX: R39.15 Urgency of urination (principal); R33.9 Retention of urine, unspecified | CPT/HCPCS: 51798; 99212 ==

== ENCOUNTER 2025-04-30 12:48 | Outpatient (REF) | payer MEDICARE, MEDICAID, SELFPAY ==
--- NOTE | ~2025-04-30 | CT_ITS ---
EXAMINATION: CT CHEST WITHOUT CONTRAST CLINICAL INFORMATION: Pneumonia COMPARISON: Chest x-ray 01/29/2025. CT chest 06/14/2023. Correlation upper GI 08/10/2024 TECHNIQUE: Multidetector volumetric CT imaging of the chest was done. Axial MIP volume rendering provided. Sagittal and coronal reformatted images were obtained. This CT examination was performed using dose optimization techniques as appropriate, variously including the following: *Automated exposure control *Adjustment of mA and/or kV according to patient size (this includes techniques or standardized protocols for targeted exams where dose is matched to indication/reason for exam; i.e. extremities or head) *Use of iterative reconstruction technique FINDINGS: LUNGS: Redemonstrated mixed attenuation nodule in the right middle lobe with calcified component, measuring 0.5 cm, unchanged. Redemonstrated small calcified granuloma in the right upper lobe. Bibasilar atelectasis/scarring, similar to previous. Right upper lobe subpleural groundglass opacity.. No confluent airspace opacity is otherwise seen.. MEDIASTINUM: No suspicious findings in the partially visualized thyroid. Normal heart size. No pericardial effusion. Normal caliber of the ascending aorta. No mediastinal or hilar lymphadenopathy. The esophagus is nondistended. The upper/midportion of the esophagus is prominent/patulous, with intraluminal heterogeneous density, suggestive of intraluminal retained contents. CORONARY ARTERY CALCIFICATION: None visualized on this study. PLEURA: There is no pleural effusion. No pleural mass or thickening. AXILLA: No lymphadenopathy. UPPER ABDOMEN: Stable small hypodense liver lesion. OSSEOUS STRUCTURES: No destructive bony lesion. CT/CT chest wo IV con IMPRESSION: 1. 5 mm calcified nodule in the right middle lobe, and small calcified granuloma, stable. 2. Bibasilar atelectasis/scarring. Small subpleural ground glass opacity right upper lobe, could reflect inflammatory/infectious process. No confluent airspace disease is otherwise identified. 3. The upper/mid esophagus is prominent//patulous, with heterogeneous density within it, suggesting intraluminal contents. Fleischner guidelines were followed. Electronically signed by: Javier Carolina MD 04/30/2025 04:23 PM [facility]
--- OUTSIDE RECORDS SUMMARY | 2025-04-30 12:49 | XMS_ITS | Encounter Summary ---
Author Organization [facility] Address [address] [place] [address] Care Team Providers Care Sport Intern Name Role Phone Jeramie Schwartz MD Primary Care Provider [phone] Encounter Details Date Type Department Care Team (Latest Contact Info) Description 07/07/[address] [facility] - Main Lab [address] [place] [address] Jeramie Scwhartz MD [address] [place] [address] [address] [place] Diffuse traumatic brain injury with loss of [...] LAB CHEMISTRY METHOD 07/07/2024 2:30 PM EST [facility] Mean Bld Glu Estim. 108 mg/dL LAB CHEMISTRY METHOD 07/07/2024 2:30 PM EST [facility] Blood Venous blood specimen / Unknown 07/07/2024 6:53 AM EST 07/07/2024 8:36 AM EST us Jeramie Schwartz MD LAB BLOOD ORDERABLES Final Resul t [facility] [address] [place] [address], * (ABNORMAL) CBC auto differential (07/07/2024 6:53 AM EST) WBC 4.7(L) 4.8 - 10.8 K/mcL LAB HEMETOLOGY METHOD 07/07/2024 9:44 AM EST [facility] RBC 4.00(L) 4.50 - 5.50 M/mcL LAB HEMETOLOGY METHOD 07/07/2024 9:44 AM EST [facility] Hemoglobin 10.4(L) 13.5 - 17.5 g/dL LAB HEMETOLOGY METHOD 07/07/2024 9:44 AM [facility] Hematocrit 33.5(L) 42.0 - 54.0 % LAB HEMETOLOGY METHOD 07/07/2024 9:44 AM [facility] MCV 84.2 79.0 - 98.0 FL LAB HEMETOLOGY METHOD 07/07/2024 9:44 AM [facility] MCH 26.1(L) 27.0 - 32.0 pcg LAB HEMETOLOGY METHOD 07/07/2024 9:44 AM [facility] MCHC 31.0(L) 32.0 - 37.0 g/dL LAB HEMETOLOGY METHOD 07/07/2024 9:44 AM [facility] RDW 19.0(H) 11.0 - 15.0 % LAB HEMETOLOGY METHOD 07/07/2024 9:44 AM [facility] Platelets 275 130 - 400 K/mcL LAB HEMETOLOGY METHOD 07/07/2024 9:44 AM [facility] MPV 10.9 7.0 - 11.0 FL LAB HEMETOLOGY METHOD 07/07/2024 9:44 AM [facility] NRBC 0.0 <1.0 % LAB HEMETOLOGY METHOD 07/07/2024 9:44 AM [facility] NRBC Absolute 0.00 <0.10 K/mcL LAB HEMETOLOGY METHOD 07/07/2024 9:44 AM [facility] Neutrophils Relative 65.9 % LAB HEMETOLOGY METHOD 07/07/2024 9:44 AM [facility] Lymphocytes Relative 15.7 % LAB HEMETOLOGY METHOD 07/07/2024 9:44 AM [facility] Monocytes Relative 12.9 % LAB HEMETOLOGY METHOD 07/07/2024 9:44 AM [facility] Eosinophils Relative 4.5 % LAB HEMETOLOGY METHOD 07/07/2024 9:44 AM [facility] Basophils Relative 0.4 % LAB HEMETOLOGY METHOD 07/07/2024 9:44 AM [facility] Immature Granulocytes Relative 0.6 % LAB HEMETOLOGY METHOD 07/07/2024 9:44 AM [facility] Neutrophils Absolute 3.06 1.50 - 7.00 K/mcL LAB HEMETOLOGY METHOD 07/07/2024 9:44 AM [facility] Lymphocytes Absolute 0.73(L) 1.00 - 5.00 K/mcL LAB HEMETOLOGY METHOD 07/07/2024 9:44 AM [facility] Monocytes Absolute 0.60 0.20 - 1.00 K/mcL LAB HEMETOLOGY METHOD 07/07/2024 9:44 AM EST [facility] Eosinophils Absolute 0.21 0.00 - 0.50 K/mcL LAB HEMETOLOGY METHOD 07/07/2024 9:44 AM [facility] Basophils Absolute 0.02 0.00 - 0.20 K/mcL LAB HEMETOLOGY METHOD 07/07/2024 9:44 AM [facility] Immature Granulocytes Absolute 0.03 0.00 - 0.03 K/mcL LAB HEMETOLOGY METHOD 07/07/2024 9:44 AM [facility] Blood Venous blood specimen / Unknown 07/07/2024 6:53 AM EST 07/07/2024 8:36 AM EST us Jeramie Schwartz MD LAB BLOOD ORDERABLES Final Resul t [facility] [address] [place] [address], documented in this encounter Visit Diagnoses Diagnosis 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 unspecified duration, sequela ([facility] V24) Acute embolism and thrombosis of unspecified deep veins of right lower extremity ([facility] V24, [facility] V28) Hyperlipidemia, unspecified Vitamin D deficiency, unspecified Type 2 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, left eye ([facility] V24, [facility] V28) documented in this encounter Care Teams Sport Intern Relationship Specialty Start Date End Date Jeramie Schwartz MD [address] [place] [address] Dr [address] [place] PCP - General Internal Medicine 06/02/24 documented as of this encounter
--- OUTSIDE RECORDS SUMMARY | 2025-04-30 12:49 | XMS_ITS | Clinical Summary ---
Author Organization 299 [facility] Address [address] [place] [address] Phone Care Team Providers Care Special Duty Nurse Name Role Phone Jeramie Schwartz MD Primary Care Provider [phone] Encounters Date Type Department Care Team Description 04/15/2025 Lab Requisition [facility] [address] [place] [phone] Jeramie Schwartz MD Type 2 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, left eye (CMS/HCC V24, CMS/HCC V28); Other fecal abnormalities 02/24/2025 Lab Requisition [facility] [address] [place] [phone] Jeramie Schwartz MD Other fecal abnormalities; Vitamin D deficiency, unspecified; Hyperlipidemia, unspecified; Encounter for screening for other suspected endocrine disorder; Retention of urine, unspecified 02/01/2025 Lab Requisition [facility] [address] [place] [phone] Jeramie Schwartz MD Encounter for therapeutic drug level monitoring from Last 3 Months Social History Tobacco [...] 08/09/2005 Abdominal Aortic Aneurysm (AAA) Screen 05/30/2023 Falls Risk Assessment 05/30/2023 Hepatitis C Screening 05/30/2023 Medicare Annual Wellness Visit 05/30/2023 Social Influencers of Health Screening 05/30/2023 Depression Screening 05/06/2024 Diabetes: Annual Urine Albumin-Creatinine Ratio (uACR) 07/09/2024 COVID-19 Vaccine ( season) 2025 Influenza Vaccine (#1) 2025 Colorectal Cancer Screening: Stool Based Tests (FOBT/FIT) 09/04/2025 09/04/2024 Diabetes: Blood Sugar Control Test (HGBA1C) 10/14/2025 04/15/2025, 01/14/2025, 10/14/2024, Additional history exists Diabetes: Annual GFR (Glomerular Filtration Rate) 11/26/2025 11/26/2024, 10/21/2024, 09/03/2024, Additional history exists Cholesterol Screening (Lipid Panel) 02/24/2030 02/24/2025 HIB Vaccines Aged Out No longer eligi [...] Diagnosis Comments CBC WITH AUTO DIFFERENTIAL Routine 04/15/2025 7:15 AM EST Type 2 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, left eye ([facility]/HCC V24, [facility]/HCC V28) Other fecal abnormalities HEMOGLOBIN A1C Routine 04/15/2025 7:15 AM EST Type 2 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, left eye (CMS/HCC V24, CMS/HCC V28) Other fecal abnormalities CBC AND DIFFERENTIAL Routine 04/15/2025 7:15 AM EST Type 2 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, left eye (CMS/HCC V24, CMS/HCC V28) Other fecal abnormalities PROSTATE SPECIFIC ANTIGEN DIAGNOSTIC Routine 02/24/2025 6:50 AM EDT Other fecal abnormalities Vitamin D deficiency, unspecified Hyperlipidemia, unspecified Encounter for screening for other suspected endocrine disorder Retention of urine, unspecified VITAMIN D 25 HYDROXY Routine 02/24/2025 6:50 [...] EDT Encounter for therapeutic drug level monitoring CREATININE, SERUM Routine 11/26/2024 6:2 0 AM EDT Feeling of incomplete bladder emptying OCCULT BLOOD STOOL, GUAIAC Routine 09/04/2024 10:45 AM EDT Melena from Last 3 Months or Most Recently Relevant to Health Maintenance Results * (ABNORMAL) CBC auto differential (04/15/2025 7:15 AM EST) Only the most recent of2 resultswithin the time period is included. Pathologist [facility] WBC 7.4 4.8 - 10.8 K/mcL LAB HEMETOLOGY METHOD 04/15/2025 8:43 AM [facility] RBC 5.20 4.50 - 5.50 M/mcL LAB HEMETOLOGY METHOD 04/15/2025 8:43 AM [facility] Hemoglobin 13.8 13.5 - 17.5 g/dL LAB HEMETOLOGY METHOD 04/15/2025 8:43 AM [facility] Hematocrit 42.2 42.0 - 54.0 % LAB HEMETOLOGY METHOD 04/15/2025 8:43 AM [facility] MCV 81.6 79.0 - 98.0 FL LAB HEMETOLOGY METHOD 04/15/2025 8:43 AM [facility] MCH 26.7(L) 27.0 - 32.0 pcg LAB HEMETOLOGY METHOD 04/15/2025 8:43 AM [facility] MCHC 32.7 32.0 - 37.0 g/dL LAB HEMETOLOGY METHOD 04/15/2025 8:43 AM [facility] RDW 15.5(H) 11.0 - 15.0 % LAB HEMETOLOGY METHOD 04/15/2025 8:43 AM [facility] Platelets 198 130 - 400 K/mcL LAB HEMETOLOGY METHOD 04/15/2025 8:43 AM [facility] MPV 11.4(H) 7.0 - 11.0 FL LAB HEMETOLOGY METHOD 04/15/2025 8:43 AM [facility] NRBC 0.0 <1.0 % LAB HEMETOLOGY METHOD 04/15/2025 8:43 AM [facility] NRBC Absolute 0.00 <0.10 K/mcL LAB HEMETOLOGY METHOD 04/15/2025 8:43 AM [facility] Neutrophils Relative 80.7 % LAB HEMETOLOGY METHOD 04/15/2025 8:43 AM [facility] Lymphocytes Relative 13.6 % LAB HEMETOLOGY METHOD 04/15/2025 8:43 AM [facility] Monocytes Relative 5.0 % LAB HEMETOLOGY METHOD 04/15/2025 8:43 AM [facility] Eosinophils Relative 0.3 % LAB HEMETOLOGY METHOD 04/15/2025 8:43 AM [facility] Basophils Relative 0.1 % LAB HEMETOLOGY METHOD 04/15/2025 8:43 AM [facility] Immature Granulocytes Relative 0.3 % LAB HEMETOLOGY METHOD 04/15/2025 8:43 AM [facility] Neutrophils Absolute 5.94 1.50 - 7.00 K/mcL LAB HEMETOLOGY METHOD 04/15/2025 8:43 AM [facility] Lymphocytes Absolute 1.00 1.00 - 5.00 K/mcL LAB HEMETOLOGY METHOD 04/15/2025 8:43 AM [facility] Monocytes Absolute 0.37 0.20 - 1.00 K/mcL LAB HEMETOLOGY METHOD 04/15/2025 8:43 AM [facility] Eosinophils Absolute 0.02 0.00 - 0.50 K/mcL LAB HEMETOLOGY METHOD 04/15/2025 8:43 AM [facility] Basophils Absolute 0.01 0.00 - 0.20 K/[facility] LAB HEMETOLOGY METHOD 04/15/2025 8:43 AM EST [facility] Immature Granulocytes Absolute 0.02 0.00 - 0.03 K/[facility] LAB HEMETOLOGY METHOD 04/15/2025 8:43 AM EST [facility] Blood Venous blood specimen / Unknown 04/15/2025 7:15 AM EST 04/15/2025 8:13 AM EST us Jeramie Schwartz MD LAB BLOOD ORDERABLES Final Resul t Performing Organization Address [facility]/ZIP Co de Phone Number [facility] [address] [place] [address], [place] [phone] * Hemoglobin A1c (04/15/2025 7:15 AM EST) Hemoglobin A1C 5.9 <6.5 % LAB CHEMISTRY METHOD 04/16/2025 2:47 PM EST [facility] Mean Bld Glu Estim. 123 mg/dL LAB CHEMISTRY METHOD 04/16/2025 2:47 PM EST [facility] Blood Venous blood specimen / Unknown 04/15/2025 7:15 AM EST 04/15/2025 8:13 AM EST us Jeramie Schwartz MD LAB BLOOD ORDERABLES Final Resul t Performing Organization Address City/[facility]/ZIP Co de Phone Number [facility] [address] [place] [address], [place] [phone] * (ABNORMAL) Lipid panel with reflex to direct LDL (02/24/2025 6:50 AM EDT) Cholesterol 174 0 - 200 mg/dL LAB CHEMISTRY METHOD 02/24/2025 10:38 AM EDT [facility] Triglycerides 111 0 - 150 mg/dL LAB CHEMISTRY METHOD 02/24/2025 10:38 AM EDT [facility] HDL 36(L) >=40 mg/dL LAB CHEMISTRY METHOD 02/24/2025 10:38 AM EDT [facility] LDL Calculated 116(H) 0 - 100 mg/dL LAB CHEMISTRY METHOD 02/24/2025 10:38 AM EDT [facility] Comment:Estimated LDL Calcul ated using equation: Total cholesterol - HDL cholesterol - (Triglycerides/5) VLDL Cholesterol Marcus 22.2 mg/dL LAB CHEMISTRY METHOD 02/24/2025 10:38 AM EDT [facility] Non HDL Chol. (LDL+VLDL) 138 <145 mg/dL LAB CHEMISTRY METHOD 02/24/2025 10:38 AM EDT [facility] Chol/HDL Ratio 4.8(H) 0.0 - 4.4 LAB CHEMISTRY METHOD 02/24/2025 10:38 AM EDT [facility] Blood Venous blood specimen / Unknown 02/24/2025 6:50 AM EDT 02/24/2025 7:45 AM EDT us Jeramie Schwartz MD LAB BLOOD ORDERABLES Final Resul t [facility] [address] [place] [address], * Prostate specific antigen diagnostic (02/24/2025 6:50 AM EDT) PSA 0.49 0.00 - 4.00 ng/mL LAB CHEMISTRY METHOD 03/01/2025 2:32 PM EDT [facility] Blood Venous blood specimen / Unknown 02/24/2025 6:50 AM EDT 02/24/2025 11:04 AM EDT Narrative [facility] - 03/01/2025 2:32 PM EDT The Siemens Advia Centaur Chemiluminescent Immunoassay is used. Results obtained with different assay methods or kits cannot be used interchangeably. Results cannot be interpreted as absolute evidence of the presence or absence of malignant disease. us Jeramie Schwartz MD LAB BLOOD ORDERABLES Final Resul t Performing Organization Address [facility] Co de Phone Number [facility] [address] [place] [address], [place] [phone] * Vitamin D 25 hydroxy (02/24/2025 6:50 AM EDT) Vit D, 25-Hydroxy 63.1 30.0 - 80.0 ng/mL LAB CHEMISTRY METHOD 02/24/2025 12:12 PM EDT [facility] Blood Venous blood specimen / Unknown 02/24/2025 6:50 AM EDT 02/24/2025 11:04 AM EDT us Jeramie Schwartz MD LAB BLOOD ORDERABLES Final Resul t Performing Organization Address [facility] de Phone Number [facility] [address] [place] [address], [place] [phone] * Thyroid stimulating hormone (02/24/2025 6:50 AM EDT) TSH 2.29 0.40 - 4.00 mcIU/mL LAB CHEMISTRY METHOD 02/24/2025 12:12 PM EDT [facility] Blood Venous blood specimen / Unknown 02/24/2025 6:50 AM EDT 02/24/2025 7:45 AM EDT us Jeramie Schwartz MD LAB BLOOD ORDERABLES Final Resul t Performing Organization Address [facility] Co de Phone Number [facility] [address] [place] [address], [place] [phone] * Pregabalin (02/01/2025 7:00 AM EDT) Pregabalin [...] 1:05 PM EDT Performed at: 01 - [facility] [address] [place] [id number] Bead Picker: Michelle Jimenez [facility], Phone: [phone] us Jeramie Schwartz MD LAB BLOOD ORDERABLES Final Resul t Performing Organization Address City/[facility] Co de Phone Number [email or web address] * Levetiracetam level (02/01/2025 7:00 AM EDT) [facility] Levetiracetam 46.4 3.0 - 60.0 ug/mL 02/03/2025 9:06 AM EDT [facility] Comment: Steady state trough serum or plasma levels following doses of 1000 to 3000 mg/Day: 3 to 37 ug/mL. The same dosage regimen will typically result in peak levels of 10 to 60 ug/mL, at approximately 1.5 hours post dose. If applicable, any drug confirmation testing reported here was developed and the performance characteristics determined by [facility]. This confirmation testing has not been cleared or approved by the FDA. The laboratory is regulated under CLIA as qualified to perform high-complexity testing. This test is used for patient testing purposes. It should not be regarded as investigational or for research. Test performed at [facility], [email or web address] , [place] [address] Marcy Abarca MD, PhD - Interactive Media Designer Blood Venous blood specimen / Unknown 02/01/2025 7:00 AM EDT 02/01/2025 7:55 AM EDT us Jeramie Schwartz MD LAB BLOOD ORDERABLES Final Resul t [facility] [address] [place] [address] * Creatinine (11/26/2024 6:20 AM EDT) Creatinine 1.02 0.70 - 1.30 mg/dL LAB CHEMISTRY METHOD 11/26/2024 8:26 AM EDT [facility] eGFR 80 >=60 mL/min/1. 73m2 LAB CHEMISTRY METHOD 11/26/2024 8:26 AM EDT [facility] Comment:Calculation based on the Chronic Kidney Disease Epidemiology Collaboration (CKD-EPI) equation refit without adjustment for race. Blood Venous blood specimen / Unknown 11/26/2024 6:20 AM EDT 11/26/2024 7:28 AM EDT us Jeramie Schwartz MD LAB BLOOD ORDERABLES Final Resul t Performing Organization Address [facility] de Phone Number [facility] [address] [place] [address], [place] [phone] * (ABNORMAL) Occult blood stool, guaiac (09/04/2024 10:45 AM EDT) Pathologist [facility] Occult Blood, Stool #1 Positive( A) Negative 09/04/2024 5:13 PM EDT [facility] Stool Rectum structure / Unknown 09/04/2024 10:45 AM EDT 09/04/2024 3:26 PM EDT us Jeramie Schwartz MD LAB BODY FLUIDS AND STOOLS ORDER VELMA Final Result Performing Organization Address [facility] de Phone Number [facility] [address] [place] [address], [place] [phone] from Last 3 Months or Most Recently Relevant to Health Maintenance Insurance MEDICARE [place]ICAID - [place] Care Teams Special Duty Nurse Relationship Specialty Start Date End Date Jeramie Schwartz MD [address] [place] [address] [address] M[place] Chaudhry PCP - General Internal Medicine 06/02/24
--- OUTSIDE RECORDS SUMMARY | 2025-04-30 12:49 | XMS_ITS | Encounter Summary ---
Author Organization [facility] Address [address] [place] [address] Care Team Providers Care Cytopathology Technologist Name Role Phone Jeramie Schwartz MD Primary Care Provider Encounter Details Date Type Department Care Team (Late st Contact Info) Description 09/22/2024 Lab Requisition [facility] Lab [address] [facility] [place] [address] Jeramie Schwartz MD [address] [place] [address] Dr [address] [place] Other intermediate manager (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 Social History Tobacco Use [...] PREGABALIN Routine 09/22/2024 6:35 AM EDT Other intermediate manager (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 documented in this encounter [...] 3:05 PM EDT Performed at: 01 - [employer] [employer] [address] [place] [id number] Satellite Dish Technician: Michelle Jimenez [facility], Phone: [phone] us Jeramie Schwartz MD LAB BLOOD ORDERABLES Final Resul t [facility] documented in this encounter Visit Diagnoses Diagnosis Other snf (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 documented in this encounter Care Teams Cytopathology Technologist Relationship Specialty Start Date End Date Jeramie Schwartz MD [address] [place] [address] Dr [address] [place] Chaudhry PCP - General Internal Medicine 06/02/24 documented as of this encounter
--- OUTSIDE RECORDS SUMMARY | 2025-04-30 12:49 | XMS_ITS | Encounter Summary ---
Author Organization [facility] Address [address] [place] [address] Care Team Providers Care Pearl Peller Name Role Phone Jeramie Schwartz MD Primary Care Provider [phone] Encounter Details Date Type Department Care Team (Latest Contact Info) Description 09/03/2024 Lab Requisition [facility] - Main Lab [address] [facility] [place] [address] Jeramie Schwartz MD [address] [place] [address] Dr [address] [place] Diffuse traumatic brain injury with loss of [...] Resul t [facility] [address] [place] [address], * (ABNORMAL) CBC auto differential (09/03/2024 6:28 AM EDT) [facility] WBC 3.9(L) 4.8 - 10.8 K/mcL LAB HEMETOLOGY METHOD 09/03/2024 8:55 AM [facility] RBC 4.30(L) 4.50 - 5.50 M/mcL LAB HEMETOLOGY METHOD 09/03/2024 8:55 AM [facility] Hemoglobin 11.3(L) 13.5 - 17.5 g/dL LAB HEMETOLOGY METHOD 09/03/2024 8:55 AM [facility] Hematocrit 36.9(L) 42.0 - 54.0 % LAB HEMETOLOGY METHOD 09/03/2024 8:55 AM EDT [facility] MCV 86.0 79.0 - 98.0 FL LAB HEMETOLOGY METHOD 09/03/2024 8:55 AM [facility] MCH 26.3(L) 27.0 - 32.0 pcg LAB HEMETOLOGY METHOD 09/03/2024 8:55 AM [facility] MCHC 30.6(L) 32.0 - 37.0 g/dL LAB HEMETOLOGY METHOD 09/03/2024 8:55 AM [facility] RDW 17.4(H) 11.0 - 15.0 % LAB HEMETOLOGY METHOD 09/03/2024 8:55 AM [facility] Platelets 278 130 - 400 K/mcL LAB HEMETOLOGY METHOD 09/03/2024 8:55 AM [facility] MPV 12.7(H) 7.0 - 11.0 FL LAB HEMETOLOGY METHOD 09/03/2024 8:55 AM [facility] NRBC 0.0 <1.0 % LAB HEMETOLOGY METHOD 09/03/2024 8:55 AM [facility] NRBC Absolute 0.00 <0.10 K/mcL LAB HEMETOLOGY METHOD 09/03/2024 8:55 AM [facility] Neutrophils Relative 48.8 % LAB HEMETOLOGY METHOD 09/03/2024 8:55 AM [facility] Lymphocytes Relative 26.7 % LAB HEMETOLOGY METHOD 09/03/2024 8:55 AM [facility] Monocytes Relative 15.6 % LAB HEMETOLOGY METHOD 09/03/2024 8:55 AM [facility] Eosinophils Relative 7.9 % LAB HEMETOLOGY METHOD 09/03/2024 8:55 AM [facility] Basophils Relative 0.5 % LAB HEMETOLOGY METHOD 09/03/2024 8:55 AM [facility] Immature Granulocytes Relative 0.5 % LAB HEMETOLOGY METHOD 09/03/2024 8:55 AM [facility] Neutrophils Absolute 1.90 1.50 - 7.00 K/mcL LAB HEMETOLOGY METHOD 09/03/2024 8:55 AM [facility] Lymphocytes Absolute 1.04 1.00 - 5.00 K/mcL LAB HEMETOLOGY METHOD 09/03/2024 8:55 AM EDT [facility] Monocytes Absolute 0.61 0.20 - 1.00 K/[facility] LAB HEMETOLOGY METHOD 09/03/2024 8:55 AM EDT [facility] Eosinophils Absolute 0.31 0.00 - 0.50 K/[facility] LAB HEMETOLOGY METHOD 09/03/2024 8:55 AM EDT [facility] Basophils Absolute 0.02 0.00 - 0.20 K/[facility] LAB HEMETOLOGY METHOD 09/03/2024 8:55 AM EDT [facility] Immature Granulocytes Absolute 0.02 0.00 - 0.03 K/[facility] LAB HEMETOLOGY METHOD 09/03/2024 8:55 AM EDT [facility] Blood Venous blood specimen / Unknown 09/03/2024 6:28 AM EDT 09/03/2024 8:22 AM EDT us Jeramie Schwartz MD LAB BLOOD ORDERABLES Final Resul t Performing Organization Address [facility]/ZIP Ok de Phone Number [facility] [address] [place] [address], * Vitamin D 25 hydroxy (09/03/2024 6:28 AM EDT) Vit D, 25-Hydroxy 57.0 30.0 - 80.0 ng/mL LAB CHEMISTRY METHOD 09/03/2024 10:39 AM EDT [facility] Blood Venous blood specimen / Unknown 09/03/2024 6:28 AM EDT 09/03/2024 8:22 AM EDT us Jeramie Schwartz MD LAB BLOOD ORDERABLES Final Resul t Performing Organization Address City/[facility]/ZIP Co de Phone Number [facility] [address] [place] [address], [place] [phone] * Prostate specific antigen screen (09/03/2024 6:28 AM EDT) Pathologist [facility] PSA 0.49 0.00 - 4.00 ng/mL LAB CHEMISTRY METHOD 09/03/2024 10:39 AM EDT [facility] Blood Venous blood specimen / Unknown 09/03/2024 6:28 AM EDT 09/03/2024 8:22 AM EDT Narrative [facility] - 09/03/2024 10:39 AM EDT The Siemens [employer] Chemiluminescent Immunoassay is used. Results obtained with different assay methods or kits cannot be used interchangeably. Results cannot be interpreted as absolute evidence of the presence or absence of malignant disease. us Jeramie Schwartz MD LAB BLOOD ORDERABLES Final Resul t Performing Organization Address City/[facility]/ZIP Co de Phone Number [facility] [address] [place] [address], [place] [phone] * Hemoglobin A1c (09/03/2024 6:28 AM EDT) [facility] Hemoglobin A1C 5.4 <6.5 % LAB CHEMISTRY METHOD 09/03/2024 10:38 AM EDT [facility] Mean Bld Glu Estim. 108 mg/dL LAB CHEMISTRY METHOD 09/03/2024 10:38 AM EDT [facility] Blood Venous blood specimen / Unknown 09/03/2024 6:28 AM EDT 09/03/2024 8:22 AM EDT us Jeramie Schwartz MD LAB BLOOD ORDERABLES Final Resul t Performing Organization Address City/[facility]/ZIP Co de Phone Number [facility] [address] [place] [address], [place] [phone] * (ABNORMAL) Comprehensive metabolic panel (09/03/2024 6:28 AM EDT) [facility] Signature Sodium 144 133 - 145 mmol/L LAB CHEMISTRY METHOD 09/03/2024 9:53 AM [facility] Potassium 4.4 3.5 - 5.5 mmol/L LAB CHEMISTRY METHOD 09/03/2024 9:53 AM [facility] Chloride 111(H) 96 - 110 mmol/L LAB CHEMISTRY METHOD 09/03/2024 9:53 AM [facility] CO2 26 21 - 32 mmol/L LAB CHEMISTRY METHOD 09/03/2024 9:53 AM [facility] Anion Gap 7 3 - 11 LAB CHEMISTRY METHOD 09/03/2024 9:53 AM [facility] Glucose 75 70 - 100 mg/dL LAB CHEMISTRY METHOD 09/03/2024 9:53 AM [facility] BUN 19 5 - 25 mg/dL LAB CHEMISTRY METHOD 09/03/2024 9:53 AM [facility] Creatinine 1.04 0.70 - 1.30 mg/dL LAB CHEMISTRY METHOD 09/03/2024 9:53 AM [facility] eGFR 78 >=60 mL/min/1. 73m2 LAB CHEMISTRY METHOD 09/03/2024 9:53 AM [facility] Comment:Calculation based on the Chronic Kidney Disease Epidemiology Collaboration (CKD-EPI) equation refit without adjustment for race. BUN/Creatinine Ratio 18.3 LAB CHEMISTRY METHOD 09/03/2024 9:53 AM [facility] Calcium 8.7 8.5 - 10.5 mg/dL LAB CHEMISTRY METHOD 09/03/2024 9:53 AM [facility] AST (SGOT) 14 10 - 42 unit/L LAB CHEMISTRY METHOD 09/03/2024 9:53 AM [facility] ALT (SGPT) 18 10 - 60 unit/L LAB CHEMISTRY METHOD 09/03/2024 9:53 AM [facility] Alkaline Phosphatase 86 42 [...] Resul t [facility] [address] [place] [address], documented in this encounter Visit Diagnoses Diagnosis 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 unspecified duration, sequela ([facility] V24) Benign prostatic hyperplasia without lower urinary tract symptoms Type 2 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, left eye ([facility] V24, [facility] V28) Vitamin D deficiency, unspecified documented in this encounter Care Teams Pearl Peller Relationship Specialty Start Date End Date Jeramie Schwartz MD [address] [place] [address] Dr [address] [place] PCP - General Internal Medicine 06/02/24 documented as of this encounter
--- OUTSIDE RECORDS SUMMARY | 2025-04-30 12:49 | XMS_ITS | Encounter Summary ---
Author Organization [employer] Address [address] [place] [address] Care Team Providers Care Taxi Dancer Name Role Phone Jeramie Schwartz MD Primary Care Provider [phone] Encounter Details Date Type Department Care Team (Late st Contact Info) Description 10/01/2024 Lab Requisition [facility] - Main Lab 299 [facility] [place] [address] Jeramie Schwartz MD [address] [place] [address] Dr [address] [place] Diffuse traumatic brain injury with loss of [...] AM EDT) WBC 3.7(L) 4.8 - 10.8 K/[facility] LAB HEMETOLOGY METHOD 10/01/2024 7:59 AM EDT [facility] RBC 4.70 4.50 - 5.50 M/mcL LAB HEMETOLOGY METHOD 10/01/2024 7:59 AM [facility] LAB Hemoglobin 12.1(L) 13.5 - 17.5 g/dL LAB HEMETOLOGY METHOD 10/01/2024 7:59 AM [facility] LAB Hematocrit 39.3(L) 42.0 - 54.0 % LAB HEMETOLOGY METHOD 10/01/2024 7:59 AM [facility] LAB MCV 83.1 79.0 - 98.0 FL LAB HEMETOLOGY METHOD 10/01/2024 7:59 AM [facility] LAB MCH 25.6(L) 27.0 - 32.0 pcg LAB HEMETOLOGY METHOD 10/01/2024 7:59 AM [facility] LAB MCHC 30.8(L) 32.0 - 37.0 g/dL LAB HEMETOLOGY METHOD 10/01/2024 7:59 AM [facility] LAB RDW 16.4(H) 11.0 - 15.0 % LAB HEMETOLOGY METHOD 10/01/2024 7:59 AM [facility] LAB Platelets 186 130 - 400 K/mcL LAB HEMETOLOGY METHOD 10/01/2024 7:59 AM [facility] LAB MPV 13.1(H) 7.0 - 11.0 FL LAB HEMETOLOGY METHOD 10/01/2024 7:59 AM [facility] LAB NRBC 0.0 <1.0 % LAB HEMETOLOGY METHOD 10/01/2024 7:59 AM [facility] LAB NRBC Absolute 0.00 <0.10 K/mcL LAB HEMETOLOGY METHOD 10/01/2024 7:59 AM [facility] LAB Neutrophils Relative 42.6 % LAB HEMETOLOGY METHOD 10/01/2024 7:59 AM [facility] LAB Lymphocytes Relative 31.2 % LAB HEMETOLOGY METHOD 10/01/2024 7:59 AM [facility] LAB Monocytes Relative 17.0 % LAB HEMETOLOGY METHOD 10/01/2024 7:59 AM [facility] LAB Eosinophils Relative 8.2 % LAB HEMETOLOGY METHOD 10/01/2024 7:59 AM [facility] LAB Basophils Relative 0.5 % LAB HEMETOLOGY METHOD 10/01/2024 7:59 AM [facility] LAB Immature Granulocytes Relative 0.5 % LAB HEMETOLOGY METHOD 10/01/2024 7:59 AM [facility] LAB Neutrophils Absolute 1.55 1.50 - 7.00 K/mcL LAB HEMETOLOGY METHOD 10/01/2024 7:59 AM [facility] LAB Lymphocytes Absolute 1.14 1.00 - 5.00 K/mcL LAB HEMETOLOGY METHOD 10/01/2024 7:59 AM [facility] LAB Monocytes Absolute 0.62 0.20 - 1.00 K/mcL LAB HEMETOLOGY METHOD 10/01/2024 7:59 AM [facility] LAB Eosinophils Absolute 0.30 0.00 - 0.50 K/mcL LAB HEMETOLOGY METHOD 10/01/2024 7:59 AM [facility] LAB Basophils Absolute 0.02 0.00 - 0.20 K/mcL LAB HEMETOLOGY METHOD 10/01/2024 7:59 AM [facility] LAB Immature Granulocytes Absolute 0.02 0.00 - 0.03 K/mcL LAB HEMETOLOGY METHOD 10/01/2024 7:59 AM [facility] LAB Blood Venous blood specimen / Unknown 10/01/2024 6:55 AM EDT 10/01/2024 7:26 AM EDT us Jeramie Schwartz MD LAB BLOOD ORDERABLES Final Resul t [facility] ([facility]) [facility] LAB [address] [place] [address], documented in this encounter Visit Diagnoses Diagnosis Diffuse traumatic brain injury with loss of consciousness status unknown, sequela (CMS/[facility] V24) Vitamin D deficiency, unspecified documented in this encounter Care Teams Taxi Dancer Relationship Specialty Start Date End Date Jeramie Schwartz MD [address] [place] [address] Dr [address] [place], [place] PCP - General Internal Medicine 06/02/24 documented as of this encounter
--- OUTSIDE RECORDS SUMMARY | 2025-04-30 12:49 | XMS_ITS | Encounter Summary ---
Author Organization [facility] Address [address] [place] [address] Care Team Providers Care Welder Repair Name Role Phone Jeramie Schwartz MD Primary Care Provider [phone] Encounter Details Date Type Department Care Team (Late st Contact Info) Description 09/24/2024 Lab Requisition [facility] - Main Lab 299 [facility] [place] [address] Jeramie Schwartz MD [address] [place] [address] [address] [place] 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 unspecified duration, sequela (CMS/HCC V24); 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 LAB HEMETOLOGY METHOD 09/24/2024 8:50 AM [facility] LAB RBC 4.40(L) 4.50 - 5.50 M/mcL LAB HEMETOLOGY METHOD 09/24/2024 8:50 AM [facility] LAB Hemoglobin 11.5(L) 13.5 - 17.5 g/dL LAB HEMETOLOGY METHOD 09/24/2024 8:50 AM [facility] LAB Hematocrit 36.4(L) 42.0 - 54.0 % LAB HEMETOLOGY METHOD 09/24/2024 8:50 AM [facility] LAB MCV 83.1 79.0 - 98.0 FL LAB HEMETOLOGY METHOD 09/24/2024 8:50 AM [facility] LAB MCH 26.3(L) 27.0 - 32.0 pcg LAB HEMETOLOGY METHOD 09/24/2024 8:50 AM [facility] LAB MCHC 31.6(L) 32.0 - 37.0 g/dL LAB HEMETOLOGY METHOD 09/24/2024 8:50 AM [facility] LAB RDW 16.6(H) 11.0 - 15.0 % LAB HEMETOLOGY METHOD 09/24/2024 8:50 AM [facility] LAB Platelets 218 130 - 400 K/mcL LAB HEMETOLOGY METHOD 09/24/2024 8:50 AM [facility] LAB MPV 10.7 7.0 - 11.0 FL LAB HEMETOLOGY METHOD 09/24/2024 8:50 AM [facility] LAB NRBC 0.0 <1.0 % LAB HEMETOLOGY METHOD 09/24/2024 8:50 AM [facility] LAB NRBC Absolute 0.00 <0.10 K/mcL LAB HEMETOLOGY METHOD 09/24/2024 8:50 AM [facility] LAB Neutrophils Relative 63.4 % LAB HEMETOLOGY METHOD 09/24/2024 8:50 AM [facility] LAB Lymphocytes Relative 18.7 % LAB HEMETOLOGY METHOD 09/24/2024 8:50 AM [facility] LAB Monocytes Relative 13.8 % LAB HEMETOLOGY METHOD 09/24/2024 8:50 AM [facility] LAB Eosinophils Relative 3.7 % LAB HEMETOLOGY METHOD 09/24/2024 8:50 AM [facility] LAB Basophils Relative 0.2 % LAB HEMETOLOGY METHOD 09/24/2024 8:50 AM [facility] LAB Immature Granulocytes Relative 0.2 % LAB HEMETOLOGY METHOD 09/24/2024 8:50 AM [facility] LAB Neutrophils Absolute 2.75 1.50 - 7.00 K/mcL LAB HEMETOLOGY METHOD 09/24/2024 8:50 AM [facility] LAB Lymphocytes Absolute 0.81(L) 1.00 - 5.00 K/mcL LAB HEMETOLOGY METHOD 09/24/2024 8:50 AM [facility] LAB Monocytes Absolute 0.60 0.20 - 1.00 K/mcL LAB HEMETOLOGY METHOD 09/24/2024 8:50 AM [facility] LAB Eosinophils Absolute 0.16 0.00 - 0.50 K/mcL LAB HEMETOLOGY METHOD 09/24/2024 8:50 AM [facility] LAB Basophils Absolute 0.01 0.00 - 0.20 K/mcL LAB HEMETOLOGY METHOD 09/24/2024 8:50 AM [facility] LAB Immature Granulocytes Absolute 0.01 0.00 - 0.03 K/mcL LAB HEMETOLOGY METHOD 09/24/2024 8:50 AM [facility] LAB Blood Venous blood specimen / Unknown 09/24/2024 6:30 AM EDT 09/24/2024 7:21 AM EDT Jeramie Schwartz MD LAB BLOOD ORDERABLES Final Resul t [facility] ([facility]) [facility] LAB [address] [place] [address], documented in this encounter Visit Diagnoses Diagnosis 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 unspecified duration, sequela (CMS/HCC V24) 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
--- OUTSIDE RECORDS SUMMARY | 2025-04-30 12:49 | XMS_ITS | Encounter Summary ---
Author Organization [facility] Address [address] [place] [address] Care Team Providers Care Route Sales Specialist Name Role Phone Jeramie Schwartz MD Primary Care Provider Encounter Details Date Type Department Care Team (Late st Contact Info) Description 10/21/2024 Lab Requisition [facility] - Main Lab 299 [facility] [place] [address] Jeramie Schwartz MD [address] [place] [address] Dr [address] [place] Encounter for therapeutic drug level monitoring Social [...] K/mcL LAB HEMETOLOGY METHOD 10/21/2024 7:52 AM [facility] LAB RBC 4.80 4.50 - 5.50 M/mcL LAB HEMETOLOGY METHOD 10/21/2024 7:52 AM [facility] LAB Hemoglobin 12.5(L) 13.5 - 17.5 g/dL LAB HEMETOLOGY METHOD 10/21/2024 7:52 AM [facility] LAB Hematocrit 39.9(L) 42.0 - 54.0 % LAB HEMETOLOGY METHOD 10/21/2024 7:52 AM [facility] LAB MCV 82.4 79.0 - 98.0 FL LAB HEMETOLOGY METHOD 10/21/2024 7:52 AM [facility] LAB MCH 25.8(L) 27.0 - 32.0 pcg LAB HEMETOLOGY METHOD 10/21/2024 7:52 AM [facility] LAB MCHC 31.3(L) 32.0 - 37.0 g/dL LAB HEMETOLOGY METHOD 10/21/2024 7:52 AM [facility] LAB RDW 16.3(H) 11.0 - 15.0 % LAB HEMETOLOGY METHOD 10/21/2024 7:52 AM [facility] LAB Platelets 212 130 - 400 K/[facility] LAB HEMETOLOGY METHOD 10/21/2024 7:52 AM [facility] LAB MPV 11.9(H) 7.0 - 11.0 FL LAB HEMETOLOGY METHOD 10/21/2024 7:52 AM [facility] LAB NRBC 0.0 <1.0 % LAB HEMETOLOGY METHOD 10/21/2024 7:52 AM [facility] LAB NRBC Absolute 0.00 <0.10 K/[facility] LAB HEMETOLOGY METHOD 10/21/2024 7:52 AM [facility] LAB Neutrophils Relative 41.5 % LAB HEMETOLOGY METHOD 10/21/2024 7:52 AM [facility] LAB Lymphocytes Relative 35.4 % LAB HEMETOLOGY METHOD 10/21/2024 7:52 AM [facility] LAB Monocytes Relative 16.5 % LAB HEMETOLOGY METHOD 10/21/2024 7:52 AM [facility] LAB Eosinophils Relative 5.4 % LAB HEMETOLOGY METHOD 10/21/2024 7:52 AM [facility] LAB Basophils Relative 1.2 % LAB HEMETOLOGY METHOD 10/21/2024 7:52 AM [facility] LAB Immature Granulocytes Relative 0.0 % LAB HEMETOLOGY METHOD 10/21/2024 7:52 AM [facility] LAB Neutrophils Absolute 1.08(L) 1.50 - 7.00 K/mcL LAB HEMETOLOGY METHOD 10/21/2024 7:52 AM [facility] LAB Lymphocytes Absolute 0.92(L) 1.00 - 5.00 K/mcL LAB HEMETOLOGY METHOD 10/21/2024 7:52 AM [facility] LAB Monocytes Absolute 0.43 0.20 - 1.00 K/mcL LAB HEMETOLOGY METHOD 10/21/2024 7:52 AM [facility] LAB Eosinophils Absolute 0.14 0.00 - 0.50 K/mcL LAB HEMETOLOGY METHOD 10/21/2024 7:52 AM [facility] LAB Basophils Absolute 0.03 0.00 - 0.20 K/mcL LAB HEMETOLOGY METHOD 10/21/2024 7:52 AM [facility] LAB Immature Granulocytes Absolute 0.00 0.00 - 0.03 K/mcL LAB HEMETOLOGY METHOD 10/21/2024 7:52 AM [facility] LAB Blood Venous blood specimen / Unknown 10/21/2024 6:20 AM EDT 10/21/2024 7:33 AM EDT us Jeramie Schwartz MD LAB BLOOD ORDERABLES Final Resul t Performing Organization Address [facility] Co de Phone Number [facility] [address] [place] [address], * Pregabalin (10/21/2024 6:20 AM EDT) Pregabalin [...] - 10/23/2024 4:05 PM EDT Performed at: [facility] [employer] [address] [place] [id number] Balance And Hairspring Assembler: Michelle Jimenez [facility], Phone: [phone] us Jeramie Schwartz MD LAB BLOOD ORDERABLES Final Resul t Performing Organization Address [facility] Co de Phone Number [email or web address] * [...] developed and the performance characteristics determined by [facility]. This confirmation testing has not been cleared or approved by the FDA. The laboratory is regulated under CLIA as qualified to perform high-complexity testing. This test is used for patient testing purposes. It should not be regarded as investigational or for research. Test performed at [facility], [address] , [place] [address] Marcy Abarca MD, PhD - Public Transportation Inspector Blood Venous blood specimen / Unknown 10/21/2024 6:20 AM EDT 10/21/2024 7:33 AM EDT us Jeramie Schwartz MD LAB BLOOD ORDERABLES Final Resul t [facility] [address] [place] [address] * (ABNORMAL) Comprehensive metabolic panel (10/21/2024 6:20 AM EDT) Sodium 141 133 - 145 mmol/L LAB CHEMISTRY METHOD 10/21/2024 8:24 AM [facility] LAB Potassium 4.0 3.5 - 5.5 mmol/L LAB CHEMISTRY METHOD 10/21/2024 8:24 AM [facility] LAB Chloride 107 96 - 110 mmol/L LAB CHEMISTRY METHOD 10/21/2024 8:24 AM [facility] LAB CO2 30 21 - 32 mmol/L LAB CHEMISTRY METHOD 10/21/2024 8:24 AM [facility] LAB Anion Gap 4 3 - 11 LAB CHEMISTRY METHOD 10/21/2024 8:24 AM [facility] LAB Glucose 87 70 - 100 mg/dL LAB CHEMISTRY METHOD 10/21/2024 8:24 AM [facility] LAB BUN 13 5 - 25 mg/dL LAB CHEMISTRY METHOD 10/21/2024 8:24 AM [facility] LAB Creatinine 0.97 0.70 - 1.30 mg/dL LAB CHEMISTRY METHOD 10/21/2024 8:24 AM [facility] LAB eGFR 85 >=60 mL/min/1. 73m2 LAB CHEMISTRY METHOD 10/21/2024 8:24 AM [facility] LAB Comment:Calculation based on the Chronic Kidney Disease Epidemiology Collaboration (CKD-EPI) equation refit without adjustment for race. BUN/Creatinine Ratio 13.4 LAB CHEMISTRY METHOD 10/21/2024 8:[address] [facility] LAB Calcium 8.9 8.5 - 10.5 mg/dL LAB CHEMISTRY METHOD 10/21/2024 8:24 AM [facility] LAB AST (SGOT) 13 10 - 42 unit/L LAB CHEMISTRY METHOD 10/21/2024 8:24 AM [facility] LAB ALT (SGPT) 17 10 - 60 unit/L LAB CHEMISTRY METHOD 10/21/2024 8:24 AM [facility] LAB Alkaline Phosphatase 94 42 - 121 unit/L LAB CHEMISTRY METHOD 10/21/2024 8:24 AM [facility] LAB Total Protein 6.5 6.0 - 8.0 g/dL LAB CHEMISTRY METHOD 10/21/2024 8:24 AM [facility] LAB Albumin 2.8(L) 3.2 - 5.0 g/dL LAB CHEMISTRY METHOD 10/21/2024 8:24 AM [facility] LAB Total Bilirubin 0.3 0.0 - 1.4 mg/dL LAB CHEMISTRY METHOD 10/21/2024 8:24 AM [facility] LAB Blood Venous blood specimen / Unknown 10/21/2024 6:20 AM EDT 10/21/2024 7:33 AM EDT us Jeramie Schwartz MD LAB BLOOD ORDERABLES Final Resul t [facility] [address] [place] [address], documented in this encounter Visit Diagnoses Diagnosis Encounter for therapeutic drug level monitoring documented in this encounter Care Teams Route Sales Specialist Relationship Specialty Start Date End Date Jeramie Schwartz MD [address] [place] PCP - General Internal Medicine 06/02/24 documented as of this encounter
--- OUTSIDE RECORDS SUMMARY | 2025-04-30 12:49 | XMS_ITS | Encounter Summary ---
Author Organization Erika [facility] Address [address] [place] [address] Care Team Providers Care Felt Dyeing Machine Tender Name Role Phone Jeramie Schwartz MD Primary Care Provider [phone] Encounter Details Date Type Department Care Team (Late st Contact Info) Description 07/27/2024 Lab Requisition [facility] - Main Lab [address] [facility] [place] [address] Jeramie Schwartz MD [address] [place] [address] [address] [place], [place] Benign prostatic hyperplasia without lower urinary [...] ORDERABLES Final Resul t Performing Organization Address [facility] Co de Phone Number [facility] LAB [address] [place] [address], [place] [phone] * BUN (07/27/2024 4:44 AM EDT) BUN 18 5 - 25 mg/dL LAB CHEMISTRY METHOD 07/27/2024 5:44 AM EDT [facility] LAB Blood Venous blood specimen / Unknown 07/27/2024 4:44 AM EDT 07/27/2024 5:27 AM EDT us Jeramie Schwartz MD LAB BLOOD ORDERABLES Final Resul t Performing Organization Address [facility] de Phone Number [facility] LAB [address] [place] [address], [place] [phone] documented in this encounter Visit Diagnoses Diagnosis Benign prostatic hyperplasia without lower urinary tract symptoms documented in this encounter Care Teams Felt Dyeing Machine Tender Relationship Specialty Start Date End Date Jeramie Schwartz MD [address] [place] PCP - General Internal Medicine 06/02/24 documented as of this encounter
--- OUTSIDE RECORDS SUMMARY | 2025-04-30 12:50 | XMS_ITS | Encounter Summary ---
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 This confirmation testing has not been cleared or approved by the FDA. The laboratory is regulated under CLIA as qualified to perform high-complexity testing. This test is used for patient testing purposes. It should not be regarded as investigational or for research. Test performed at [facility], [address], [place], [place] [id number] Marcy Abarca MD, PhD - Head Machine Feeder Blood Venous blood specimen / Unknown 09/11/2024 6:20 AM EDT 09/11/2024 6:55 AM EDT us Jeramie Schwartz MD LAB BLOOD ORDERABLES Final Resul t [facility] [address] [place] [address] documented in this encounter Visit Diagnoses Diagnosis Other usp (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 documented in this encounter Care Teams Fishing Gear Mechanic Relationship Specialty Start Date End Date Jeramie Schwartz MD [address] [place] [address] [address] [place] PCP - General Internal Medicine 06/02/24 documented as of this encounter
--- OUTSIDE RECORDS SUMMARY | 2025-04-30 12:50 | XMS_ITS | Encounter Summary ---
Author Organization Erika [facility] Address [address] [place] [address] Care Team Providers Care Trainer Name Role Phone Jeramie Schwartz MD Primary Care Provider [phone] Encounter Details Date Type Department Care Team (Late st Contact Info) Description 03/26/2024 Lab Requisition [facility] - Main Lab [address] [place] [address] Jeramie Schwartz MD [address] [place] [address] Dr [address] [place] Diffuse traumatic brain injury with loss of [...] AM EST) WBC 3.0(L) 4.8 - 10.8 K/[facility] LAB HEMETOLOGY METHOD 03/26/2024 7:46 AM EST [facility] ([facility] LAB RBC 3.80(L) 4.50 - 5.50 M/mcL LAB HEMETOLOGY METHOD 03/26/2024 7:46 AM [facility] LAB Hemoglobin 9.8(L) 13.5 - 17.5 g/dL LAB HEMETOLOGY METHOD 03/26/2024 7:46 AM [facility] LAB Hematocrit 31.5(L) 42.0 - 54.0 % LAB HEMETOLOGY METHOD 03/26/2024 7:46 AM [facility] LAB MCV 83.8 79.0 - 98.0 FL LAB HEMETOLOGY METHOD 03/26/2024 7:46 AM [facility] LAB MCH 26.1(L) 27.0 - 32.0 pcg LAB HEMETOLOGY METHOD 03/26/2024 7:46 AM [facility] LAB MCHC 31.1(L) 32.0 - 37.0 g/dL LAB HEMETOLOGY METHOD 03/26/2024 7:46 AM [facility] LAB RDW 15.9(H) 11.0 - 15.0 % LAB HEMETOLOGY METHOD 03/26/2024 7:46 AM [facility] LAB Platelets 263 130 - 400 K/mcL LAB HEMETOLOGY METHOD 03/26/2024 7:46 AM [facility] LAB MPV 9.7 7.0 - 11.0 FL LAB HEMETOLOGY METHOD 03/26/2024 7:46 AM [facility] LAB NRBC 0.0 <1.0 % LAB HEMETOLOGY METHOD 03/26/2024 7:46 AM [facility] LAB NRBC Absolute 0.00 <0.10 K/mcL LAB HEMETOLOGY METHOD 03/26/2024 7:46 AM [facility] LAB Neutrophils Relative 47.8 % LAB HEMETOLOGY METHOD 03/26/2024 7:46 AM [facility] LAB Lymphocytes Relative 26.7 % LAB HEMETOLOGY METHOD 03/26/2024 7:46 AM [facility] LAB Monocytes Relative 14.9 % LAB HEMETOLOGY METHOD 03/26/2024 7:46 AM [facility] LAB Eosinophils Relative 9.6 % LAB HEMETOLOGY METHOD 03/26/2024 7:46 AM [facility] LAB Basophils Relative 0.7 % LAB HEMETOLOGY METHOD 03/26/2024 7:46 AM [facility] LAB Immature Granulocytes Relative 0.3 % LAB HEMETOLOGY METHOD 03/26/2024 7:46 AM [facility] LAB Neutrophils Absolute 1.45(L) 1.50 - 7.00 K/mcL LAB HEMETOLOGY METHOD 03/26/2024 7:46 AM [facility] LAB Lymphocytes Absolute 0.81(L) 1.00 - 5.00 K/mcL LAB HEMETOLOGY METHOD 03/26/2024 7:46 AM [facility] LAB Monocytes Absolute 0.45 0.20 - 1.00 K/mcL LAB HEMETOLOGY METHOD 03/26/2024 7:46 AM [facility] LAB Eosinophils Absolute 0.29 0.00 - 0.50 K/mcL LAB HEMETOLOGY METHOD 03/26/2024 7:46 AM [facility] LAB Basophils Absolute 0.02 0.00 - 0.20 K/mcL LAB HEMETOLOGY METHOD 03/26/2024 7:46 AM [facility] LAB Immature Granulocytes Absolute 0.01 0.00 - 0.03 K/mcL LAB HEMETOLOGY METHOD 03/26/2024 7:46 AM [facility] LAB Blood Venous blood specimen / Unknown 03/26/2024 6:55 AM EST 03/26/2024 7:35 AM EST us Jeramie Schwartz MD LAB BLOOD ORDERABLES Final Resul t [facility] [address] [place] [address], documented in this encounter Visit Diagnoses Diagnosis 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 unspecified duration, sequela (CMS/HCC V24) documented in this encounter Care Teams Trainer Relationship Specialty Start Date End Date Jeramie Schwartz MD [address] [place] [address] Dr [address] [place] PCP - General Internal Medicine 06/02/24 documented as of this encounter
--- OUTSIDE RECORDS SUMMARY | 2025-04-30 12:50 | XMS_ITS | Encounter Summary ---
Author Organization Erika [facility] Address [address] [place] [address] Care Team Providers Care Privacy Compliance Manager Name Role Phone Jeramie Schwartz MD Primary Care Provider Encounter Details Date Type Department Care Team (Late st Contact Info) Description 09/04/2024 Lab Requisition [facility] Lab [address] [place] [address] Jeramie Schwartz MD [address] [place] [address] Dr [address] [place], [place] Melena Social History Tobacco Use Types [...] Positive( A) Negative 09/04/2024 5:13 PM EDT [facility] Stool Rectum structure / Unknown 09/04/2024 10:45 AM EDT 09/04/2024 3:26 PM EDT us Jeramie Schwartz MD LAB BODY FLUIDS AND STOOLS ORDER VELMA Final Result [facility] [address] [place] [address], [place] [phone] documented in this encounter Visit Diagnoses Diagnosis [place] Blood in stool documented in this encounter Care Teams Privacy Compliance Manager Relationship Specialty Start Date End Date Jeramie Schwartz MD [address] [place] [address] Dr [address] MARS Chaudhry PCP - General Internal Medicine 06/02/24 documented as of this encounter
--- OUTSIDE RECORDS SUMMARY | 2025-04-30 12:50 | XMS_ITS | Encounter Summary ---
Author Organization Erika [facility] Address [address] [place] [address] Care Team Providers Care Debt Collector Name Role Phone Jeramie Schwartz MD Primary Care Provider [phone] Encounter Details Date Type Department Care Team (Late st Contact Info) Description 09/09/2024 Lab Requisition [facility] - Main Lab 299 [facility] [place] [address] Jeramie Schwartz MD [address] [place] [address] Dr [address] [place] Diffuse traumatic brain injury with loss of [...] K/mcL LAB HEMETOLOGY METHOD 09/09/2024 12:29 PM [facility] RBC 4.20(L) 4.50 - 5.50 M/mcL LAB HEMETOLOGY METHOD 09/09/2024 12:29 PM [facility] Hemoglobin 11.0(L) 13.5 - 17.5 g/dL LAB HEMETOLOGY METHOD 09/09/2024 12:29 PM [facility] Hematocrit 35.2(L) 42.0 - 54.0 % LAB HEMETOLOGY METHOD 09/09/2024 12:29 PM [facility] MCV 84.4 79.0 - 98.0 FL LAB HEMETOLOGY METHOD 09/09/2024 12:29 PM [facility] MCH 26.4(L) 27.0 - 32.0 pcg LAB HEMETOLOGY METHOD 09/09/2024 12:29 PM [facility] MCHC 31.3(L) 32.0 - 37.0 g/dL LAB HEMETOLOGY METHOD 09/09/2024 12:29 PM [facility] RDW 17.3(H) 11.0 - 15.0 % LAB HEMETOLOGY METHOD 09/09/2024 12:29 PM [facility] Platelets 193 130 - 400 K/mcL LAB HEMETOLOGY METHOD 09/09/2024 12:29 PM [facility] MPV 12.4(H) 7.0 - 11.0 FL LAB HEMETOLOGY METHOD 09/09/2024 12:29 PM [facility] NRBC 0.0 <1.0 % LAB HEMETOLOGY METHOD 09/09/2024 12:29 PM [facility] NRBC Absolute 0.00 <0.10 K/[facility] LAB HEMETOLOGY METHOD 09/09/2024 12:29 PM [facility] Neutrophils Relative 66.4 % LAB HEMETOLOGY METHOD 09/09/2024 12:29 PM [facility] Lymphocytes Relative 15.9 % LAB HEMETOLOGY METHOD 09/09/2024 12:29 PM [facility] Monocytes Relative 12.7 % LAB HEMETOLOGY METHOD 09/09/2024 12:29 PM [facility] Eosinophils Relative 4.2 % LAB HEMETOLOGY METHOD 09/09/2024 12:29 PM [facility] Basophils Relative 0.5 % LAB HEMETOLOGY METHOD 09/09/2024 12:29 PM [facility] Immature Granulocytes Relative 0.3 % LAB HEMETOLOGY METHOD 09/09/2024 12:29 PM [facility] Neutrophils Absolute 2.51 1.50 - 7.00 K/mcL LAB HEMETOLOGY METHOD 09/09/2024 12:29 PM [facility] Lymphocytes Absolute 0.60(L) 1.00 - 5.00 K/mcL LAB HEMETOLOGY METHOD 09/09/2024 12:29 PM [facility] Monocytes Absolute 0.48 0.20 - 1.00 K/mcL LAB HEMETOLOGY METHOD 09/09/2024 12:29 PM [facility] Eosinophils Absolute 0.16 0.00 - 0.50 K/mcL LAB HEMETOLOGY METHOD 09/09/2024 12:29 PM [facility] Basophils Absolute 0.02 0.00 - 0.20 K/mcL LAB HEMETOLOGY METHOD 09/09/2024 12:29 PM [facility] Immature Granulocytes Absolute 0.01 0.00 - 0.03 K/mcL LAB HEMETOLOGY METHOD 09/09/2024 12:29 PM [facility] Blood Venous blood specimen / Unknown 09/09/2024 6:15 AM EDT 09/09/2024 7:18 AM EDT Jeramie Schwartz MD LAB BLOOD ORDERABLES Final Resul t [facility] [address] [place] [address], documented in this encounter Visit Diagnoses Diagnosis 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 unspecified duration, sequela (CMS/HCC V24) Type 2 diabetes mellitus without complications (CMS/HCC V24, CMS/HCC V28) documented in this encounter Care Teams Debt Collector Relationship Specialty Start Date End Date Jeramie Schwartz MD [address] [place] [address] Dr [address] [place] PCP - General Internal Medicine 06/02/24 documented as of this encounter
--- OUTSIDE RECORDS SUMMARY | 2025-04-30 12:50 | XMS_ITS | Encounter Summary ---
Author Organization [facility] Address [address] [place] [address] Care Team Providers Care Liquid Waste Treatment Plant Operator Name Role Phone Jeramie Schwartz MD Primary Care Provider Encounter Details Date Type Department Care Team (Late st Contact Info) Description 11/26/2024 Lab Requisition [facility] - Main Lab 299 [facility] [place] [address] Jeramie Schwartz MD [address] [place] [address] Dr [address] [place] Feeling of incomplete bladder emptying Social History [...] % LAB [facility] Lymphocytes % 24.0 % LAB HEMETOLOGY METHOD 11/26/2024 8:[address] [facility] Reactive Lymphocyte 4.00 % LAB HEMETOLOGY METHOD 11/26/2024 8:[address] [facility] Monocytes % 10.0 % LAB HEMETOLOGY METHOD 11/26/2024 8:[address] [facility] Eosinophils % 2.0 % LAB HEMETOLOGY METHOD 11/26/2024 8:[address] [facility] Basophils % 2.0 % LAB HEMETOLOGY METHOD 11/26/2024 8:[address] [facility] Neutrophils Absolute Manual 1.33(L) 1.50 - 7.00 K/mcL LAB HEMETOLOGY METHOD 11/26/2024 8:[address] [facility] Lymphocytes Absolute 0.55(L) 1.00 - 5.00 K/mcL LAB HEMETOLOGY METHOD 11/26/2024 8:[address] [facility] Reactive Lymph Abs Manual 0.09(H) 0.00 - 0.00 lym LAB HEMETOLOGY METHOD 11/26/2024 8:[address] [facility] Monocytes Absolute Manual 0.23 0.20 - 1.00 K/mcL LAB HEMETOLOGY METHOD 11/26/2024 8:[address] [facility] Eosinophils Absolute Manual [...] ORDERABLES Final Resul t Performing Organization Address [facility] Co de Phone Number [facility] [address] [place] [address], [place] [phone] * Pathology review, blood smear (11/26/2024 6:20 [...] ORDERABLES Final Resul t Performing Organization Address City/[facility]/ZIP Co de Phone Number [facility] [address] [place] [address], * (ABNORMAL) CBC auto differential (11/26/2024 6:20 AM EDT) [facility] WBC 2.3(L) 4.8 - 10.8 K/mcL LAB HEMETOLOGY METHOD 11/26/2024 8:[address] [facility] RBC 5.00 4.50 - 5.50 M/mcL LAB HEMETOLOGY METHOD 11/26/2024 8:[address] [facility] Hemoglobin 12.7(L) 13.5 - 17.5 g/dL LAB HEMETOLOGY METHOD 11/26/2024 8:[address] [facility] Hematocrit 40.4(L) 42.0 - 54.0 % LAB HEMETOLOGY METHOD 11/26/2024 8:[address] [facility] MCV 81.6 79.0 - 98.0 FL LAB HEMETOLOGY METHOD 11/26/2024 8:[address] [facility] MCH 25.7(L) 27.0 - 32.0 pcg LAB HEMETOLOGY METHOD 11/26/2024 8:[address] [facility] MCHC 31.4(L) 32.0 - 37.0 g/dL LAB HEMETOLOGY METHOD 11/26/2024 8:[address] [facility] RDW 16.3(H) 11.0 - 15.0 % LAB HEMETOLOGY METHOD 11/26/2024 8:[address] [facility] Platelets 243 130 - 400 K/mcL LAB HEMETOLOGY METHOD 11/26/2024 8:[address] [facility] MPV 10.7 7.0 - 11.0 FL LAB HEMETOLOGY METHOD 11/26/2024 8:[address] [facility] NRBC 0.0 <1.0 % LAB HEMETOLOGY METHOD 11/26/2024 8:[address] [facility] NRBC Absolute 0.00 <0.10 K/mcL LAB HEMETOLOGY METHOD 11/26/2024 8:[address] [facility] Blood Venous blood specimen / Unknown 11/26/2024 6:20 AM EDT 11/26/2024 7:28 AM EDT us Jeramie Schwartz MD LAB BLOOD ORDERABLES Final Resul t Performing Organization Address [facility]/ZIP Co de Phone Number [facility] [address] [place] [address], * Prostate specific antigen diagnostic (11/26/2024 6:20 [...] Resul t [facility] [address] [place] [address], * BUN (11/26/2024 6:20 AM EDT) BUN 16 5 - 25 mg/dL LAB CHEMISTRY METHOD 11/26/2024 8:[address] [facility] Blood Venous blood specimen / Unknown 11/26/2024 6:20 AM EDT 11/26/2024 7:28 AM EDT us Jeramie Schwartz MD LAB BLOOD ORDERABLES Final Resul t Performing Organization Address [facility] de Phone Number [facility] [address] [place] [address], [place] [phone] * Creatinine (11/26/2024 6:20 AM EDT) Creatinine [...] ORDERABLES Final Resul t Performing Organization Address [facility] de Phone Number [facility] [address] [place] [address], [place] [phone] documented in this encounter Visit Diagnoses Diagnosis Feeling of incomplete bladder emptying documented in this encounter Care Teams Liquid Waste Treatment Plant Operator Relationship Specialty Start Date End Date Jeramie Schwartz MD [address] [place] [address] Dr Janis Chaudhry [place] PCP - General Internal Medicine 06/02/24 documented as of this encounter
--- OUTSIDE RECORDS SUMMARY | 2025-04-30 12:50 | XMS_ITS | Encounter Summary ---
Author Organization [facility] Address [address] [place] [address] Care Team Providers Care Patient Support Specialist Name Role Phone Jeramie Schwartz MD Primary Care Provider Encounter Details Date Type Department Care Team (Late st Contact Info) Description 09/07/2024 Lab Requisition [facility] - Main Lab 299 [facility] [place] [address] Jeramie Schwartz MD [address] [place] [address] Dr [address] [place] Other intermediate designer (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 Social History Tobacco Use [...] PREGABALIN Routine 09/07/2024 5:25 AM EDT Other intermediate designer (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 documented in this encounter [...] 11:05 PM EDT Performed at: 01 - [employer] [address] [place] [address] [id number] Gastroenterology Nurse Practitioner: Michelle Jimenez [facility], Phone: [phone] us Jeramie Schwartz MD LAB BLOOD ORDERABLES Final Resul t [facility] documented in this encounter Visit Diagnoses Diagnosis Other intermediate designer (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 documented in this encounter Care Teams Patient Support Specialist Relationship Specialty Start Date End Date Jeramie Schwartz MD [address] [place] [address] Dr [address] MARS Chaudhry PCP - General Internal Medicine 06/02/24 documented as of this encounter
--- OUTSIDE RECORDS SUMMARY | 2025-04-30 12:50 | XMS_ITS | Encounter Summary ---
Author Organization Erika [facility] Address [address] [place] [address] Care Team Providers Care Mixer Crane Operator Name Role Phone Jeramie Schwartz MD Primary Care Provider [phone] Encounter Details Date Type Department Care Team (Late st Contact Info) Description 08/25/2024 Lab Requisition [facility] - Main Lab 299 [facility] [place] [address] Jeramie Schwartz MD [address] [place] [address] [address] [place] Other intermediate frame tender (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 Social History Tobacco Use [...] PREGABALIN Routine 08/25/2024 5:20 AM EDT Other intermediate frame tender (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 LEVETIRACETAM LEVEL Routine 08/25/2024 5 :20 AM EDT Other usp (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 documented in [...] 08/28/2024 5:05 PM EDT Performed at: - [employer] [address] [place] [address] [id number] Table Maker: Michelel Jimenez [facility], Phone: [phone] Jeramie Schwartz MD LAB BLOOD ORDERABLES Final Resul t Performing Organization Address City/[facility] Co de Phone Number [facility] * Levetiracetam level (08/25/2024 5:20 AM EDT) [facility] Levetiracetam 12.0 3.0 - 60.0 ug/mL 08/27/2024 5:48 AM EDT [facility] Comment: Steady state trough serum or plasma levels following doses of 1000 to 3000 mg/Day: 3 to 37 ug/mL. The same dosage regimen will typically result in peak levels of 10 to 60 ug/mL, at approximately 1.5 hours post dose. If applicable, any drug confirmation testing reported here was developed and the performance characteristics determined by [facility]. This confirmation testing has not been cleared or approved by the FDA. The laboratory is regulated under CLIA as qualified to perform high-complexity testing. This test is used for patient testing purposes. It should not be regarded as investigational or for research. Test performed at [facility], [address] , [place] [address] Marcy Abarca MD, PhD - Motor Coach Chauffeur Blood Venous blood specimen / Unknown 08/25/2024 5:20 AM EDT 08/25/2024 6:33 AM EDT us Jeramie Schwartz MD LAB BLOOD ORDERABLES Final Resul t Performing Organization Address City/[facility] Co de Phone Number [facility] [address] [place] [address] documented in this encounter Visit Diagnoses Diagnosis Other usp (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 documented in this encounter Care Teams Mixer Crane Operator Relationship Specialty Start Date End Date Jeramie Schwartz MD [address] [place] [address] Dr [address] M[place] Chaudhry PCP - General Internal Medicine 06/02/24 documented as of this encounter
--- OUTSIDE RECORDS SUMMARY | 2025-04-30 12:50 | XMS_ITS | Encounter Summary ---
Author Organization [facility] Address [address] [place] [address] Care Team Providers Care Mushroom Growing Supervisor Name Role Phone Jeramie Schwartz MD Primary Care Provider [phone] Encounter Details Date Type Department Care Team (Late st Contact Info) Description 08/26/2024 Lab Requisition [facility] - Main Lab 299 [facility] [place] [address] Jeramie Schwartz MD [address] [place] [address] Dr [address] [place] Diffuse traumatic brain injury with loss of [...] AM EDT) WBC 3.6(L) 4.8 - 10.8 K/[facility] LAB HEMETOLOGY METHOD 08/26/2024 7:31 AM EDT [facility] RBC 3.80(L) 4.50 - [...] MD LAB BLOOD ORDERABLES Final Resul t [facility] [address] [place] [address], documented in this encounter Visit Diagnoses Diagnosis 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 unspecified duration, sequela (CMS/HCC V24) Hyperlipidemia, unspecified documented in this encounter Care Teams Mushroom Growing Supervisor Relationship Specialty Start Date End Date Jeramie Schwartz MD [address] [place] [address] Dr [address] [place], [place] PCP - General Internal Medicine 06/02/24 documented as of this encounter
--- OUTSIDE RECORDS SUMMARY | 2025-04-30 12:50 | XMS_ITS | Encounter Summary ---
Author Organization [facility] Address [address] [place] [address] Care Team Providers Care Blade Changer Name Role Phone Jeramie Schwartz MD Primary Care Provider Encounter Details Date Type Department Care Team (Late st Contact Info) Description 02/01/2025 Lab Requisition [facility] - Main Lab 299 [facility] [place] [address] Jeramie Schwartz MD [address] [place] [address] Dr [address] [place] Encounter for therapeutic drug level monitoring Social [...] characteristics determined by [facility]. This confirmation testing has not been cleared or approved by the FDA. The laboratory is regulated under CLIA as qualified to perform high-complexity testing. This test is used for patient testing purposes. It should not be regarded as investigational or for research. Test performed at [facility], [address] , [place] [address] Marcy Abarca MD, PhD - Shoe Cutter Blood Venous blood specimen / Unknown 02/01/2025 7:00 AM EDT 02/01/2025 7:55 AM EDT us Jeramie Schwartz MD LAB BLOOD ORDERABLES Final Resul t Performing Organization Address [facility] Co de Phone Number [facility] [address] [place] [address] * Pregabalin (02/01/2025 7:00 AM EDT) [facility] Pregabalin 6.9 ug/mL 02/03/2025 1:05 PM EDT [...] 1:05 PM EDT Performed at: 01 - [employer] [address] [place] [id number] Rn Bariatric: Michelle Jimenez [facility], Phone: [phone] us Jeramie Schwartz MD LAB BLOOD ORDERABLES Final Resul t [facility] documented in this encounter Visit Diagnoses Diagnosis Encounter for therapeutic drug level monitoring documented in this encounter Care Teams Blade Changer Relationship Specialty Start Date End Date Jeramie Schwartz MD [address] [place] [address] [address] MARS Chaudhry PCP - General Internal Medicine 06/02/24 documented as of this encounter
--- OUTSIDE RECORDS SUMMARY | 2025-04-30 12:50 | XMS_ITS | Encounter Summary ---
Author Organization [facility] Address [address] [place] [address] Care Team Providers Care Milk Wagon Driver Name Role Phone Jeramie Schwartz MD Primary Care Provider Encounter Details Date Type Department Care Team (Late st Contact Info) Description 12/14/[address] [facility] - Main Lab [address] [place] [address] Jeramie Schwartz MD [address] [place] [address] [address] [place], [place] Other fecal abnormalities Social History Tobacco [...] LAB HEMETOLOGY METHOD 12/14/2024 6:47 AM EDT [facility] RBC 4.70 4.50 - 5.50 M/mcL LAB HEMETOLOGY METHOD 12/14/2024 6:47 AM EDT [facility] Hemoglobin 11.9(L) 13.5 - [...] LAB HEMETOLOGY METHOD 12/14/2024 6:47 AM EDT [facility] Eosinophils Relative 2.7 % LAB HEMETOLOGY METHOD 12/14/2024 6:47 AM EDT [facility] Basophils Relative 0.4 % LAB HEMETOLOGY METHOD [facility] Immature Granulocytes Relative 0.4 % LAB HEMETOLOGY METHOD 12/14/2024 6:47 AM EDT [facility] Neutrophils Absolute 1.05(L) 1.50 - 7.00 K/mcL LAB HEMETOLOGY METHOD 12/14/2024 6:47 AM EDT [facility] Lymphocytes Absolute 0.92(L) 1.00 - 5.00 K/mcL LAB HEMETOLOGY METHOD 12/14/2024 6:47 AM EDT [facility] Monocytes Absolute 0.52 0.20 - 1.00 K/mcL LAB HEMETOLOGY METHOD 12/14/2024 6:47 AM EDT [facility] Eosinophils Absolute 0.07 0.00 - 0.50 K/mcL LAB HEMETOLOGY METHOD 12/14/2024 6:47 AM EDT [facility] Basophils Absolute 0.01 0.00 - 0.20 K/mcL LAB HEMETOLOGY METHOD 12/14/2024 6:47 AM T [facility] Immature Granulocytes Absolute 0.01 0.00 - 0.03 K/mcL LAB HEMETOLOGY METHOD 12/14/2024 6:47 AM EDT [facility] Blood Venous blood specimen / Unknown 12/14/2024 5:55 AM EDT 12/14/2024 6:36 AM EDT us Jeramie Schwartz MD LAB BLOOD ORDERABLES Final Resul t [facility] [address] [place] [address], documented in this encounter Visit Diagnoses Diagnosis Other fecal abnormalities documented in this encounter Care Teams Milk Wagon Driver Relationship Specialty Start Date End Date Jeramie Schwartz MD [address] [facility] [address] [place] Chaudhry PCP - General Internal Medicine 06/02/24 documented as of this encounter
--- OUTSIDE RECORDS SUMMARY | 2025-04-30 12:50 | XMS_ITS | Encounter Summary ---
Author Organization [facility]rika [facility] Address [address] [place] [address] Care Team Providers Care National Accounts Sales Name Role Phone Jeramie Schwartz MD Primary Care Provider [phone] Encounter Details Date Type Department Care Team (Late st Contact Info) Description 09/04/2024 Lab Requisition [facility] - Main Lab 299 [facility] [place] [address] Jeramie Schwartz MD [address] [place] [address] [address] [place], [place] Vitamin D deficiency, unspecified Social History [...] LAB HEMETOLOGY METHOD 09/04/2024 9:33 AM EDT [facility] RBC 4.20(L) 4.50 - 5.50 M/mcL LAB HEMETOLOGY METHOD 09/04/2024 9:33 AM EDT [facility] Hemoglobin 11.1(L) 13.5 - 17.5 g/dL LAB HEMETOLOGY METHOD 09/04/2024 9:33 AM EDT [facility] Hematocrit 36.0(L) 42.0 - 54.0 % LAB HEMETOLOGY METHOD 09/04/2024 9:33 AM EDT [facility] MCV 84.9 79.0 - 98.0 FL LAB HEMETOLOGY METHOD 09/04/2024 9:33 AM EDT [facility] MCH 26.2(L) 27.0 - 32.0 pcg LAB HEMETOLOGY METHOD 09/04/2024 9:33 AM EDT [facility] MCHC 30.8(L) 32.0 - 37.0 g/dL LAB HEMETOLOGY METHOD 09/04/2024 9:33 AM EDT [facility] RDW 17.7(H) 11.0 - 15.0 % LAB HEMETOLOGY METHOD 09/04/2024 9[facility] Platelets 201 130 - 400 K/mcL LAB HEMETOLOGY METHOD 09/04/2024 9:33 AM EDT [facility] MPV LAB HEMETOLOGY METHOD 09/04/2024 9:33 AM EDT [facility] Comment:Not Measured NRBC 0.0 <1.0 % LAB HEMETOLOGY METHOD 09/04/2024 9:33 AM EDT [facility] NRBC Absolute 0.00 <0.10 K/mcL LAB HEMETOLOGY METHOD 09/04/2024 9:33 AM T [facility] Blood Venous blood specimen / Unknown 09/04/2024 7:32 AM EDT 09/04/2024 8:29 AM EDT us Jeramie Schwartz MD LAB BLOOD ORDERABLES Final Resul t [facility] [address] [place] [address], documented in this encounter Visit Diagnoses Diagnosis Vitamin D deficiency, unspecified documented in this encounter Care Teams National Accounts Sales Relationship Specialty Start Date End Date Jeramie Schwartz MD [address] [place] [address] [address] MARS Chaudhry PCP - General Internal Medicine 06/02/24 documented as of this encounter
--- OUTSIDE RECORDS SUMMARY | 2025-04-30 12:50 | XMS_ITS | Encounter Summary ---
Author Organization [employer] Address [address] [place] [address] Care Team Providers Care Automotive Accessory Installer Name Role Phone Jeramie Schwartz MD Primary Care Provider [phone] Encounter Details Date Type Department Care Team (Late st Contact Info) Description 02/24/2025 Lab Requisition [facility] - Main Lab [address] [facility] [place] [address] Jeramie Schwartz MD [address] [place] [address] Dr [address] [place], [place] Other fecal abnormalities; Vitamin D deficiency, unspecified; Hyperlipidemia, unspecified; Encounter for screening for other suspected endocrine disorder; Retention of urine, unspecified Social History Tobacco Use Types Packs/Day [...] for screening for other suspected endocrine disorder PROSTATE SPECIFIC ANTIGEN DIAGNOSTIC Routine 02/24/2025 6:50 AM EDT Other fecal abnormalities Vitamin D deficiency, unspecified Hyperlipidemia, unspecified Encounter for screening for other suspected endocrine disorder Retention of urine, unspecified CBC WITH AUTO DIFFERENTIAL Routine 02/24/2025 6:50 [...] disorder documented in this encounter Results * Prostate specific antigen diagnostic (02/24/2025 6:50 AM EDT) PSA 0.49 0.00 - 4.00 ng/mL LAB CHEMISTRY METHOD 03/01/2025 2:32 PM EDT [facility] Blood Venous blood specimen / Unknown 02/24/2025 6:50 AM EDT 02/24/2025 11:04 AM EDT Narrative [facility] - 03/01/2025 2:32 PM EDT The Siemens Advia Centaur Chemiluminescent Immunoassay is used. Results obtained with different assay methods or kits cannot be used interchangeably. Results cannot be interpreted as absolute evidence of the presence or absence of malignant disease. Jeramie Schwartz MD LAB BLOOD ORDERABLES Final Resul t [facility] [address] [place] [address], * Vitamin D 25 hydroxy (02/24/2025 6:50 AM EDT) Vit D, 25-Hydroxy 63.1 30.0 - 80.0 ng/mL LAB CHEMISTRY METHOD 02/24/2025 12:12 PM EDT [facility] Blood Venous blood specimen / Unknown 02/24/2025 6:50 AM EDT 02/24/2025 11:04 AM EDT us Jeramie Schwartz MD LAB BLOOD ORDERABLES Final Resul t [facility] [address] [place] [address], * (ABNORMAL) CBC auto differential (02/24/2025 6:50 AM EDT) WBC 4.5(L) 4.8 - 10.8 K/mcL LAB HEMETOLOGY METHOD 02/24/2025 8:20 AM EDT [facility] RBC 4.80 4.50 - 5.50 M/mcL LAB HEMETOLOGY METHOD 02/24/2025 8:20 AM EDT [facility] Hemoglobin 12.6(L) 13.5 - 17.5 g/dL LAB HEMETOLOGY METHOD 02/24/2025 8:20 AM EDT [facility] Hematocrit 39.1(L) 42.0 - 54.0 % LAB HEMETOLOGY METHOD 02/24/2025 8:20 AM EDT [facility] MCV 81.8 79.0 - 98.0 FL LAB HEMETOLOGY METHOD 02/24/2025 8:20 AM EDT [facility] MCH 26.4(L) 27.0 - 32.0 pcg LAB HEMETOLOGY METHOD 02/24/2025 8:20 AM EDT [facility] MCHC 32.2 32.0 - 37.0 g/dL LAB HEMETOLOGY METHOD 02/24/2025 8:20 AM EDT [facility] RDW 15.7(H) 11.0 - 15.0 % LAB HEMETOLOGY METHOD 02/24/2025 8:20 AM EDT [facility] Platelets 213 130 - 400 K/mcL LAB HEMETOLOGY METHOD 02/24/2025 8:20 AM EDT [facility] MPV 10.1 7.0 - 11.0 FL LAB HEMETOLOGY METHOD 02/24/2025 8:20 AM [facility] NRBC 0.0 <1.0 % LAB HEMETOLOGY METHOD 02/24/2025 8:20 AM [facility] NRBC Absolute 0.00 <0.10 K/mcL LAB HEMETOLOGY METHOD 02/24/2025 8:20 AM [facility] Neutrophils Relative 73.3 % LAB HEMETOLOGY METHOD 02/24/2025 8:20 AM [facility] Lymphocytes Relative 18.8 % LAB HEMETOLOGY METHOD 02/24/2025 8:20 AM [facility] Monocytes Relative 6.3 % LAB HEMETOLOGY METHOD 02/24/2025 8:20 AM [facility] Eosinophils Relative 0.7 % LAB HEMETOLOGY METHOD 02/24/2025 8:20 AM [facility] Basophils Relative 0.7 % LAB HEMETOLOGY METHOD 02/24/2025 8:20 AM [facility] Immature Granulocytes Relative 0.2 % LAB HEMETOLOGY METHOD 02/24/2025 8:20 AM [facility] Neutrophils Absolute 3.29 1.50 - 7.00 K/mcL LAB HEMETOLOGY METHOD 02/24/2025 8:20 AM [facility] Lymphocytes Absolute 0.84(L) 1.00 - 5.00 K/mcL LAB HEMETOLOGY METHOD 02/24/2025 8:20 AM [facility] Monocytes Absolute 0.28 0.20 - 1.00 K/mcL LAB HEMETOLOGY METHOD 02/24/2025 8:20 AM [facility] Eosinophils Absolute 0.03 0.00 - 0.50 K/mcL LAB HEMETOLOGY METHOD 02/24/2025 8:20 AM [facility] Basophils Absolute 0.03 0.00 - 0.20 K/mcL LAB HEMETOLOGY METHOD 02/24/2025 8:20 AM EDT [facility] Immature Granulocytes Absolute 0.01 0.00 - 0.03 K/[facility] LAB HEMETOLOGY METHOD 02/24/2025 8:20 AM EDT [facility] Blood Venous blood specimen / Unknown 02/24/2025 6:50 AM EDT 02/24/2025 7:45 AM EDT us Jeramie Schwartz MD LAB BLOOD ORDERABLES Final Resul t Performing Organization Address City/[facility]/ZIP Co de Phone Number [facility] [address] [place] [address], [place] [phone] * Thyroid stimulating hormone (02/24/2025 6:50 AM EDT) TSH 2.29 0.40 - 4.00 mcIU/mL LAB CHEMISTRY METHOD 02/24/2025 12:12 PM EDT [facility] Blood Venous blood specimen / Unknown 02/24/2025 6:50 AM EDT 02/24/2025 7:45 AM EDT us Jeramie Schwartz MD LAB BLOOD ORDERABLES Final Resul t Performing Organization Address City/[facility]/ZIP Co de Phone Number [facility] [address] [place] [address], [place] [phone] * (ABNORMAL) Lipid panel with reflex to direct LDL (02/24/2025 6:50 AM EDT) Cholesterol 174 0 - 200 mg/dL LAB CHEMISTRY METHOD 02/24/2025 10:38 AM EDT [facility] Triglycerides 111 0 - 150 mg/dL LAB CHEMISTRY METHOD 02/24/2025 10:38 AM EDT [facility] HDL 36(L) >=40 mg/dL LAB CHEMISTRY METHOD 02/24/2025 10:38 AM EDT [facility] LDL Calculated 116(H) 0 - 100 mg/dL LAB CHEMISTRY METHOD 02/24/2025 10:38 AM EDT [facility] Comment:Estimated LDL Calcul ated using equation: Total cholesterol - HDL cholesterol - (Triglycerides/5) VLDL Cholesterol Marcus 22.2 mg/dL LAB CHEMISTRY METHOD 02/24/2025 10:38 AM EDT [facility] Non HDL Chol. (LDL+VLDL) 138 <145 mg/dL LAB CHEMISTRY METHOD 02/24/2025 10:38 AM T [facility] Chol/HDL Ratio 4.8(H) 0.0 - 4.4 LAB CHEMISTRY METHOD 02/24/2025 10:38 AM T [facility] Blood Venous blood specimen / Unknown 02/24/2025 6:50 AM EDT 02/24/2025 7:45 AM EDT us Jeramie Schwartz MD LAB BLOOD ORDERABLES Final Resul t [facility] [address] [place] [address], documented in this encounter Visit Diagnoses Diagnosis Other fecal abnormalities Vitamin D deficiency, unspecified Hyperlipidemia, unspecified Encounter for screening for other suspected endocrine disorder Retention of urine, unspecified documented in this encounter Care Teams Automotive Accessory Installer Relationship Specialty Start Date End Date Jeramie Schwartz MD [address] [place], [place] PCP - General Internal Medicine 06/02/24 documented as of this encounter
--- OUTSIDE RECORDS SUMMARY | 2025-04-30 12:50 | XMS_ITS | Encounter Summary ---
Author Organization [employer] Address [address] [place] [address] Care Team Providers Care Propagator Name Role Phone Jeramie Schwartz MD Primary Care Provider [phone] Encounter Details Date Type Department Care Team (Latest Contact Info) Description 04/15/2025 Lab Requisition [facility] - Main Lab [address] [place] [address] Jeramie Schwartz MD [address] [place] [address] [address] [place] Type 2 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, left eye (CMS/HCC V24, CMS/HCC V28); Other fecal abnormalities Social History Tobacco Use [...] (CMS/HCC V24, CMS/HCC V28) Other fecal abnormalities HEMOGLOBIN A1C Routine 04/15/2025 7:15 AM EST Type 2 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, left eye (CMS/HCC V24, CMS/HCC V28) Other fecal abnormalities documented in this encounter Results * (ABNORMAL) CBC auto differential (04/15/2025 7:15 AM EST) [facility] WBC 7.4 4.8 - 10.8 K/mcL LAB HEMETOLOGY METHOD 04/15/2025 8:43 AM [facility] RBC 5.20 4.50 - 5.50 M/mcL LAB HEMETOLOGY METHOD 04/15/2025 8:43 AM [facility] Hemoglobin 13.8 13.5 - 17.5 g/dL LAB HEMETOLOGY METHOD 04/15/2025 8:43 AM [facility] Hematocrit 42.2 42.0 - 54.0 % LAB HEMETOLOGY METHOD 04/15/2025 8:43 AM [facility] MCV 81.6 79.0 - 98.0 FL LAB HEMETOLOGY METHOD 04/15/2025 8:43 AM [facility] MCH 26.7(L) 27.0 - 32.0 pcg LAB HEMETOLOGY METHOD 04/15/2025 8:43 AM [facility] MCHC 32.7 32.0 - 37.0 g/dL LAB HEMETOLOGY METHOD 04/15/2025 8:43 AM [facility] RDW 15.5(H) 11.0 - 15.0 % LAB HEMETOLOGY METHOD 04/15/2025 8:43 AM [facility] Platelets 198 130 - 400 K/mcL LAB HEMETOLOGY METHOD 04/15/2025 8:43 AM [facility] MPV 11.4(H) 7.0 - 11.0 FL LAB HEMETOLOGY METHOD 04/15/2025 8:43 AM [facility] NRBC 0.0 <1.0 % LAB HEMETOLOGY METHOD 04/15/2025 8:43 AM [facility] NRBC Absolute 0.00 <0.10 K/mcL LAB HEMETOLOGY METHOD 04/15/2025 8:43 AM [facility] Neutrophils Relative 80.7 % LAB HEMETOLOGY METHOD 04/15/2025 8:43 AM [facility] Lymphocytes Relative 13.6 % LAB HEMETOLOGY METHOD 04/15/2025 8:43 AM [facility] Monocytes Relative 5.0 % LAB HEMETOLOGY METHOD 04/15/2025 8:43 AM [facility] Eosinophils Relative 0.3 % LAB HEMETOLOGY METHOD 04/15/2025 8:43 AM [facility] Basophils Relative 0.1 % LAB HEMETOLOGY METHOD 04/15/2025 8:43 AM [facility] Immature Granulocytes Relative 0.3 % LAB HEMETOLOGY METHOD 04/15/2025 8:43 AM [facility] Neutrophils Absolute 5.94 1.50 - 7.00 K/mcL LAB HEMETOLOGY METHOD 04/15/2025 8:43 AM [facility] Lymphocytes Absolute 1.00 1.00 - 5.00 K/mcL LAB HEMETOLOGY METHOD 04/15/2025 8:43 AM [facility] Monocytes Absolute 0.37 0.20 - 1.00 K/mcL LAB HEMETOLOGY METHOD 04/15/2025 8:43 AM [facility] Eosinophils Absolute 0.02 0.00 - 0.50 K/mcL LAB HEMETOLOGY METHOD 04/15/2025 8:43 AM [facility] Basophils Absolute 0.01 0.00 - 0.20 K/mcL LAB HEMETOLOGY METHOD 04/15/2025 8:43 AM [facility] Immature Granulocytes Absolute 0.02 0.00 - 0.03 K/mcL LAB HEMETOLOGY METHOD 04/15/2025 8:43 AM [facility] Blood Venous blood specimen / Unknown 04/15/2025 7:15 AM EST 04/15/2025 8:13 AM EST us Jeramie Schwartz MD LAB BLOOD ORDERABLES Final Resul t Performing Organization Address [facility]/ZIP Co de Phone Number [facility] [address] [place] [address], [place] [phone] * Hemoglobin A1c (04/15/2025 7:15 AM EST) Hemoglobin A1C 5.9 <6.5 % LAB CHEMISTRY METHOD 04/16/2025 2:47 PM EST [facility] Mean Bld Glu Estim. 123 mg/dL LAB CHEMISTRY METHOD 04/16/2025 2:47 PM EST [facility] Blood Venous blood specimen / Unknown 04/15/2025 7:15 AM EST 04/15/2025 8:13 AM EST us Jeramie Schwartz MD LAB BLOOD ORDERABLES Final Resul t Performing Organization Address [facility]/ZIP Co de Phone Number [facility] [address] [place] [address], [place] [phone] documented in this encounter Visit Diagnoses Diagnosis Type 2 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, left eye (CMS/[facility] V24, [facility] V28) Other fecal abnormalities documented in this encounter Care Teams Propagator Relationship Specialty Start Date End Date Jeramie Schwartz MD [address] [place] [address] Dr [address] [place] PCP - General Internal Medicine 06/02/24 documented as of this encounter
--- OUTSIDE RECORDS SUMMARY | 2025-04-30 12:50 | XMS_ITS | Encounter Summary ---
Author Organization [employer] [facility] Address [address] [place] [address] Care Team Providers Care Financial Wellness Coach Name Role Phone Jeramie Schwartz MD Primary Care Provider [phone] Encounter Details Date Type Department Care Team (Late st Contact Info) Description 04/08/2024 Lab Requisition [facility] - Main Lab [address] [facility] [place] [address] Jeramie Schwartz MD [address] [place] [address] [address] [place], [place] Diffuse traumatic brain injury with loss [...] % LAB HEMETOLOGY METHOD 04/08/2024 9:53 AM [facility] Bands % 1.0 % LAB HEMETOLOGY METHOD 04/08/2024 9:53 AM [facility] Lymphocytes % 34.0 % LAB HEMETOLOGY METHOD 04/08/2024 9:53 AM [facility] Monocytes % 15.0 % LAB HEMETOLOGY METHOD 04/08/2024 9:53 AM [facility] Eosinophils % 16.0 % LAB HEMETOLOGY METHOD 04/08/2024 9:53 AM [facility] Basophils % 1.0 % LAB HEMETOLOGY METHOD 04/08/2024 9:53 AM [facility] Neutrophils Absolute Manual 0.88(L) 1.50 - 7.00 K/mcL LAB HEMETOLOGY METHOD 04/08/2024 9:53 AM [facility] Bands Absolute Manual 0.03(H) 0.00 - 0.00 K/mcL LAB HEMETOLOGY METHOD 04/08/2024 9:53 AM [facility] Lymphocytes Absolute 0.88(L) 1.00 - 5.00 K/mcL LAB HEMETOLOGY METHOD 04/08/2024 9:53 AM [facility] Monocytes Absolute Manual 0.39 0.20 - 1.00 K/mcL LAB HEMETOLOGY METHOD 04/08/2024 9:53 AM [facility] Eosinophils Absolute Manual 0.42 0.00 - 0.50 K/mcL LAB HEMETOLOGY METHOD 04/08/2024 9:53 AM [facility] Basophils Absolute Manual 0.03 0.00 - 0.20 K/mcL LAB HEMETOLOGY METHOD 04/08/2024 9:53 AM [facility] Rbc Morphology Present( A) Consistent with indices, Normal for LAB HEMETOLOGY METHOD 04/08/2024 9:53 AM [facility] Platelet Morphology - WAM See Note(A) Normal LAB HEMETOLOGY METHOD 04/08/2024 9:53 AM [facility] Comment:PLT: Normal Ovalocytes Present 11 - 15%(A) (none) LAB HEMETOLOGY METHOD 04/08/2024 9:53 AM [facility] Blood Venous blood specimen / Unknown 04/08/2024 6:31 AM EST 04/08/2024 8:43 AM EST us Jeramie Schwartz MD LAB BLOOD ORDERABLES Final Resul t Performing Organization Address City/[facility]/ZIP Co de Phone Number [facility] [address] [place] [address], [place] [phone] * Lavender tube (04/08/2024 6:31 AM EST) Extra Tube Hold for add-ons. 04/08/2024 10:01 AM EST [facility] Comment:Auto resulted. Blood Venous blood specimen / Unknown 04/08/2024 6:31 AM EST 04/08/2024 8:43 AM EST us Jeramie Schwartz MD LAB BLOOD ORDERABLES Final Resul t Performing Organization Address City/[facility]/ZIP Co de Phone Number [facility] [address] [place] [address], [place] [phone] * (ABNORMAL) CBC auto differential (04/08/2024 6:31 AM EST) WBC 2.6(L) 4.8 - 10.8 K/mcL LAB HEMETOLOGY METHOD 04/08/2024 9:53 AM [facility] RBC 3.80(L) 4.50 - 5.50 M/mcL LAB HEMETOLOGY METHOD 04/08/2024 9:53 AM [facility] Hemoglobin 9.6(L) 13.5 - 17.5 g/dL LAB HEMETOLOGY METHOD 04/08/2024 9:53 AM [facility] Hematocrit 31.5(L) 42.0 - 54.0 % LAB HEMETOLOGY METHOD 04/08/2024 9:53 AM [facility] MCV 83.6 79.0 - 98.0 FL LAB HEMETOLOGY METHOD 04/08/2024 9:53 AM [facility] MCH 25.5(L) 27.0 - 32.0 pcg LAB HEMETOLOGY METHOD 04/08/2024 9:53 AM [facility] MCHC 30.5(L) 32.0 - 37.0 g/dL LAB HEMETOLOGY METHOD 04/08/2024 9:53 AM [facility] RDW 16.3(H) 11.0 - 15.0 % LAB HEMETOLOGY METHOD 04/08/2024 9:53 AM [facility] Platelets 338 130 - 400 K/mcL LAB HEMETOLOGY METHOD 04/08/2024 9:53 AM [facility] MPV 11.9(H) 7.0 - 11.0 FL LAB HEMETOLOGY METHOD 04/08/2024 9:53 AM [facility] NRBC 0.0 <1.0 % LAB HEMETOLOGY METHOD 04/08/2024 9:53 AM [facility] NRBC Absolute 0.00 <0.10 K/mcL LAB HEMETOLOGY METHOD 04/08/2024 9:53 AM [facility] Blood Venous blood specimen / Unknown 04/08/2024 6:31 AM EST 04/08/2024 8:43 AM EST us Jeramie Schwartz MD LAB BLOOD ORDERABLES Final Resul t Performing Organization Address [facility]/ZIP Co de Phone Number [facility] [address] [place] [address], [place] [phone] * Hemoglobin A1c (04/08/2024 6:31 AM EST) Hemoglobin A1C 4.3 <6.5 % LAB CHEMISTRY METHOD 04/08/2024 12:45 PM EST [facility] Mean Bld Glu Estim. 77 mg/dL LAB CHEMISTRY METHOD 04/08/2024 12:45 PM EST [facility] Blood Venous blood specimen / Unknown 04/08/2024 6:31 AM EST 04/08/2024 8:43 AM EST us Jeramie Schwartz MD LAB BLOOD ORDERABLES Final Resul t Performing Organization Address [facility]/ZIP Co de Phone Number [facility] [address] [place] [address], [place] [phone] documented in this encounter Visit Diagnoses Diagnosis 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 unspecified duration, sequela (CMS/HCC V24) documented in this encounter Care Teams Financial Wellness Coach Relationship Specialty Start Date End Date Jeramie Schwartz MD [address] [place] [address] Dr [address] [place] PCP - General Internal Medicine 06/02/24 documented as of this encounter
--- OUTSIDE RECORDS SUMMARY | 2025-04-30 12:50 | XMS_ITS | Encounter Summary ---
Author Organization [employer] [facility] Address [address] [place] [address] Care Team Providers Care Cake Decorator Name Role Phone Jeramie Schwartz MD Primary Care Provider [phone] Encounter Details Date Type Department Care Team (Late st Contact Info) Description 10/07/2024 Lab Requisition [facility] - Main Lab [address] [place] [address] Jeramie Schwartz MD [address] [place] [address] Dr [address] [place] Other technician terminal and repeater (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 Social History Tobacco Use [...] GOLD Routine 10/07/2024 7:05 AM EDT Other technician terminal and repeater (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 CBC WITH AUTO DIFFERENTIAL Routine 10/07/2024 7:05 AM EDT Other technician terminal and repeater (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 CBC AND DIFFERENTIAL Routine 10/07/2024 7:05 AM EDT Other technician terminal and repeater (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 documented in this encounter Results * (ABNORMAL) CBC auto differential (10/07/2024 7:05 AM EDT) [facility] Signature WBC 8.6 4.8 - 10.8 K/[facility] LAB HEMETOLOGY METHOD 10/07/2024 8:47 AM EDT [facility] RBC 4.80 4.50 - 5.50 M/[facility] LAB HEMETOLOGY METHOD 10/07/2024 8:47 AM [facility] Hemoglobin 12.4(L) 13.5 - 17.5 g/dL LAB HEMETOLOGY METHOD 10/07/2024 8:47 AM [facility] Hematocrit 39.5(L) 42.0 - 54.0 % LAB HEMETOLOGY METHOD 10/07/2024 8:47 AM [facility] MCV 82.5 79.0 - 98.0 FL LAB HEMETOLOGY METHOD 10/07/2024 8:47 AM [facility] MCH 25.9(L) 27.0 - 32.0 pcg LAB HEMETOLOGY METHOD 10/07/2024 8:47 AM [facility] MCHC 31.4(L) 32.0 - 37.0 g/dL LAB HEMETOLOGY METHOD 10/07/2024 8:47 AM [facility] RDW 16.0(H) 11.0 - 15.0 % LAB HEMETOLOGY METHOD 10/07/2024 8:47 AM [facility] Platelets 182 130 - 400 K/mcL LAB HEMETOLOGY METHOD 10/07/2024 8:47 AM [facility] MPV LAB HEMETOLOGY METHOD 10/07/2024 8:47 AM [facility] Comment:Not Measured NRBC 0.2 <1.0 % LAB HEMETOLOGY METHOD 10/07/2024 8:47 AM [facility] NRBC Absolute 0.02 <0.10 K/mcL LAB HEMETOLOGY METHOD 10/07/2024 8:47 AM [facility] Neutrophils Relative 90.9 % LAB HEMETOLOGY METHOD 10/07/2024 8:47 AM [facility] Lymphocytes Relative 4.1 % LAB HEMETOLOGY METHOD 10/07/2024 8:47 AM [facility] Monocytes Relative 4.2 % LAB HEMETOLOGY METHOD 10/07/2024 8:47 AM [facility] Eosinophils Relative 0.1 % LAB HEMETOLOGY METHOD 10/07/2024 8:47 AM [facility] Basophils Relative 0.2 % LAB HEMETOLOGY METHOD 10/07/2024 8:47 AM [facility] Immature Granulocytes Relative 0.5 % LAB HEMETOLOGY METHOD 10/07/2024 8:47 AM [facility] Neutrophils Absolute 7.79(H) 1.50 - 7.00 K/mcL LAB HEMETOLOGY METHOD 10/07/2024 8:47 AM [facility] Lymphocytes Absolute 0.35(L) 1.00 - 5.00 K/mcL LAB HEMETOLOGY METHOD 10/07/2024 8:47 AM [facility] Monocytes Absolute 0.36 0.20 - 1.00 K/mcL LAB HEMETOLOGY METHOD 10/07/2024 8:47 AM [facility] Eosinophils Absolute 0.01 0.00 - 0.50 K/mcL LAB HEMETOLOGY METHOD 10/07/2024 8:47 AM [facility] Basophils Absolute 0.02 0.00 - 0.20 K/mcL LAB HEMETOLOGY METHOD 10/07/2024 8:47 AM [facility] Immature Granulocytes Absolute 0.04(H) 0.00 - 0.03 K/mcL LAB HEMETOLOGY METHOD 10/07/2024 8:47 AM [facility] Blood Venous blood specimen / Unknown 10/07/2024 7:05 AM EDT 10/07/2024 8:02 AM EDT Jeramie Schwartz MD LAB BLOOD ORDERABLES Final Resul t [facility] [address] [place] [address], [place] [phone] * SST tube (10/07/2024 7:05 AM EDT) Extra Tube Hold for add-ons. 10/07/2024 10:01 AM EDT [facility] Comment:Auto resulted. Blood Venous blood specimen / Unknown 10/07/2024 7:05 AM EDT 10/07/2024 8:02 AM EDT Jeramie Schwartz MD LAB BLOOD ORDERABLES Final Resul t Performing Organization Address [facility] Co de Phone Number [facility] [address] [place] [address], [place] [phone] documented in this encounter Visit Diagnoses Diagnosis Other care home (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 documented in this encounter Care Teams Cake Decorator Relationship Specialty Start Date End Date Jeramie Schwartz MD [address] [place], [place] PCP - General Internal Medicine 06/02/24 documented as of this encounter
--- OUTSIDE RECORDS SUMMARY | 2025-04-30 12:50 | XMS_ITS | Encounter Summary ---
Author Organization [facility] Address [address] [place] [address] Care Team Providers Care Scoring Machine Operator Name Role Phone Jeramie Schwartz MD Primary Care Provider [phone] Encounter Details Date Type Department Care Team (Late st Contact Info) Description 11/13/2024 Lab Requisition [facility] - Main Lab [address] [place] [address] Jeramie Schwartz MD [address] [place] [address] [address] [place], [place] Other fecal abnormalities Social History Tobacco [...] g/dL LAB HEMETOLOGY METHOD 11/13/2024 7:38 AM [facility] Hematocrit 41.2(L) 42.0 - 54.0 % LAB HEMETOLOGY METHOD 11/13/2024 7:38 AM [facility] MCV 81.3 79.0 - 98.0 FL LAB HEMETOLOGY METHOD 11/13/2024 7:38 AM [facility] MCH 25.6(L) 27.0 - 32.0 pcg LAB HEMETOLOGY METHOD 11/13/2024 7:38 AM [facility] MCHC 31.6(L) 32.0 - 37.0 g/dL LAB HEMETOLOGY METHOD 11/13/2024 7:38 AM [facility] RDW 17.0(H) 11.0 - 15.0 % LAB HEMETOLOGY METHOD 11/13/2024 7:38 AM [facility] Platelets 148 130 - 400 K/mcL LAB HEMETOLOGY METHOD 11/13/2024 7:38 AM [facility] MPV LAB HEMETOLOGY METHOD 11/13/2024 7:38 AM [facility] Comment:Not Measured NRBC 0.0 <1.0 % LAB HEMETOLOGY METHOD 11/13/2024 7:38 AM [facility] NRBC Absolute 0.00 <0.10 K/mcL LAB HEMETOLOGY METHOD 11/13/2024 7:38 AM [facility] Neutrophils Relative 53.8 % LAB HEMETOLOGY METHOD 11/13/2024 7:38 AM [facility] Lymphocytes Relative 32.9 % LAB HEMETOLOGY METHOD 11/13/2024 7:38 AM [facility] Monocytes Relative 10.1 % LAB HEMETOLOGY METHOD 11/13/2024 7:38 AM [facility] Eosinophils Relative 2.6 % LAB HEMETOLOGY METHOD 11/13/2024 7:38 AM EDT [facility] LAB Basophils Relative 0.6 % LAB HEMETOLOGY METHOD 11/13/2024 7:38 AM [facility] Immature Granulocytes Relative 0.0 % LAB HEMETOLOGY METHOD 11/13/2024 7:38 AM EDT [facility] LAB Neutrophils Absolute 1.87 1.50 - 7.00 K/mcL LAB HEMETOLOGY METHOD 11/13/2024 7:38 AM EDT [facility] Lymphocytes Absolute 1.14 1.00 - 5.00 K/mcL LAB [facility]OLOGY [facility] Monocytes Absolute 0.35 0.20 - 1.00 K/mcL LAB HEMETOLOGY METHOD 11/13/2024 7:38 AM EDT [facility] LAB Eosinophils Absolute 0.09 0.00 - 0.50 K/mcL LAB HEMETOLOGY METHOD 11/13/2024 7:38 AM EDT [facility] Basophils Absolute 0.02 0.00 - 0.20 K/mcL LAB HEMETOLOGY METHOD [facility] Immature Granulocytes Absolute 0.00 0.00 - 0.03 K/mcL LAB HEMETOLOGY METHOD 11/13/2024 7:38 AM EDT [facility] Blood Venous blood specimen / Unknown 11/13/2024 6:45 AM EDT 11/13/2024 7:20 AM EDT us Jeramie Schwartz MD LAB BLOOD ORDERABLES Final Resul t [facility] [address] [place] [address], documented in this encounter Visit Diagnoses Diagnosis Other fecal abnormalities documented in this encounter Care Teams Scoring Machine Operator Relationship Specialty Start Date End Date Jeramie Schwartz MD [address] [place] [address] Dr [address] [place] PCP - General Internal Medicine 06/02/24 documented as of this encounter
--- OUTSIDE RECORDS SUMMARY | 2025-04-30 12:50 | XMS_ITS | Encounter Summary ---
Author Organization [email or web address] Address [address] [place] [address] Care Team Providers Care Hotel Housekeeper Name Role Phone Jeramie Schwartz MD Primary Care Provider [phone] Encounter Details Date Type Department Care Team (Latest Contact Info) Description 10/14/2024 Lab Requisition [facility] - Main Lab [address] [facility] [place] [address] Jeramie Schwartz MD [address] [place] [address] Dr [address] [place] Type 2 diabetes mellitus with mild [...] diabetic retinopathy with macular edema, left eye ([facility] V24, [facility] [place]) documented in this encounter Results * (ABNORMAL) Manual differential (10/14/2024 7:20 AM EDT) Neutrophils % 54.0 % LAB HEMETOLOGY METHOD 10/14/2024 9:21 AM [facility] Lymphocytes % 28.0 % LAB HEMETOLOGY METHOD 10/14/2024 9:21 AM [facility] Monocytes % 14.0 % LAB HEMETOLOGY METHOD 10/14/2024 9:21 AM [facility] Eosinophils % 4.0 % LAB HEMETOLOGY METHOD 10/14/2024 9:21 AM [facility] Basophils % 1.0 % LAB HEMETOLOGY METHOD 10/14/2024 9:21 AM [facility] Neutrophils Absolute Manual 1.67 1.50 - 7.00 K/mcL LAB HEMETOLOGY METHOD 10/14/2024 9:21 AM [facility] Lymphocytes Absolute 0.87(L) 1.00 - 5.00 K/mcL LAB HEMETOLOGY METHOD 10/14/2024 9:21 AM [facility] Monocytes Absolute Manual 0.43 0.20 - 1.00 K/mcL LAB HEMETOLOGY METHOD 10/14/2024 9:21 AM [facility] Eosinophils Absolute Manual 0.12 0.00 - 0.50 K/mcL LAB HEMETOLOGY METHOD 10/14/2024 9:21 AM [facility] Basophils Absolute Manual 0.03 0.00 - 0.20 K/mcL LAB HEMETOLOGY METHOD 10/14/2024 9:21 AM [facility] Rbc Morphology Present( A) Consistent with indices, Normal for [place] LAB HEMETOLOGY METHOD 10/14/2024 9:21 AM EDT [facility] LAB Platelet Morphology - WAM See Note(A) Normal LAB HEMETOLOGY METHOD 10/14/2024 9:21 AM EDT [facility] LAB Comment:PLT: Normal Ovalocytes Present 5 - 10%(A) (none) LAB HEMETOLOGY METHOD 10/14/2024 9:21 AM EDT [facility] Blood Venous blood specimen / Unknown 10/14/2024 7:20 AM EDT 10/14/2024 8:22 AM EDT us Jeramie Schwartz MD LAB BLOOD ORDERABLES Final Resul t [facility] [address] [place] [address], * (ABNORMAL) CBC auto differential (10/14/2024 7:20 AM EDT) WBC 3.1(L) 4.8 - 10.8 K/mcL LAB HEMETOLOGY METHOD 10/14[facility]24 [facility] RBC 4.80 4.50 - 5.50 M/mcL LAB HEMETOLOGY METHOD 10/14/2024 9:21 AM [facility] Hemoglobin 12.2(L) 13.5 - 17.5 g/dL LAB HEMETOLOGY METHOD 10/14/2024 9:21 AM EDT [facility] Hematocrit 39.0(L) 42.0 - 54.0 % LAB HEMETOLOGY METHOD 10/14/2024 9:21 AM EDT [facility] MCV 81.3 79.0 - 98.0 FL LAB HEMETOLOGY METHOD 10/14/2024 9:21 AM [facility] MCH 25.4(L) 27.0 - 32.0 pcg LAB HEMETOLOGY METHOD 10/14/2024 9:21 AM EDT [facility] MCHC 31.3(L) 32.0 - 37.0 g/dL LAB HEMETOLOGY METHOD 10/14/2024 9:21 AM EDT [facility] RDW 16.1(H) 11.0 - 15.0 % LAB HEMETOLOGY METHOD 10/14/2024 9:21 AM EDT [facility] Platelets 208 130 - 400 K/mcL LAB HEMETOLOGY METHOD 10/14/2024 9:21 AM EDT [facility] MPV LAB HEMETOLOGY METHOD 10/14/2024 9:21 AM EDT [facility] LAB Comment:Not Measured NRBC 0.0 <1.0 % LAB HEMETOLOGY METHOD 10/14/2024 9:21 AM EDT [facility] NRBC Absolute 0.00 <0.10 K/mcL LAB HEMETOLOGY METHOD 10/14/2024 9:21 AM EDT [facility] Blood Venous blood specimen / Unknown 10/14/2024 7:20 AM EDT 10/14/2024 8:22 AM EDT us Jeramie Schwartz MD LAB BLOOD ORDERABLES Final Resul t [facility] [address] [place] [address], * Hemoglobin A1c (10/14/2024 7:20 AM EDT) Hemoglobin A1C 5.6 <6.5 % LAB CHEMISTRY METHOD 10/14/2024 12:17 PM EDT [facility] Mean Bld Glu Estim. 114 mg/dL LAB CHEMISTRY METHOD 10/14/2024 12:17 PM EDT [facility] Blood Venous blood specimen / Unknown 10/14/2024 7:20 AM EDT 10/14/2024 8:22 AM EDT Jeramie Schwartz MD LAB BLOOD ORDERABLES Final Resul t [facility] ([facility] [address] [place] [address], documented in this encounter Visit Diagnoses Diagnosis Type 2 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, left eye ([facility] V24, [facility] V28) documented in this encounter Care Teams Hotel Housekeeper Relationship Specialty Start Date End Date Jeramie Schwartz MD [address] [place], [place] PCP - General Internal Medicine 06/02/24 documented as of this encounter
--- OUTSIDE RECORDS SUMMARY | 2025-04-30 12:50 | XMS_ITS | Encounter Summary ---
Author Organization [facility] Address [address] [place] [address] Care Team Providers Care Tracer Clerk Name Role Phone Jeramie Schwartz MD Primary Care Provider Encounter Details Date Type Department Care Team (Late st Contact Info) Description 03/11/2024 Lab Requisition [facility] - Main Lab [address] [place] [address] Jeramie Schwartz MD [address] [place] [address] Dr [address] [place] Diffuse traumatic brain injury with loss [...] AM EST) WBC 3.2(L) 4.8 - 10.8 K/[facility] LAB HEMETOLOGY METHOD 03/11/2024 6:59 AM EST [facility] RBC 4.10(L) 4.50 - 5.50 [...] Resul t [facility] [address] [place] [address], documented in this encounter Visit Diagnoses Diagnosis 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 unspecified duration, sequela (CMS/HCC V24) documented in this encounter Care Teams Tracer Clerk Relationship Specialty Start Date End Date Jeramie Schwartz MD [address] [place] [address] Dr [address] [place] PCP - General Internal Medicine 06/02/24 documented as of this encounter
--- OUTSIDE RECORDS SUMMARY | 2025-04-30 12:50 | XMS_ITS | Encounter Summary ---
Author Organization [facility] Address [address] [place] [address] Care Team Providers Care Air Press Operator Name Role Phone Jeramie Schwartz MD Primary Care Provider [phone] Encounter Details Date Type Department Care Team (Late st Contact Info) Description 08/12/2024 Lab Requisition [facility] - Main Lab [address] [facility] [place] [address] Jeramie Schwartz MD [address] [place] [address] Dr [address] [place] Diffuse traumatic brain injury with loss of [...] K/mcL LAB HEMETOLOGY METHOD 08/12/2024 6:48 AM [facility] RBC 3.80(L) 4.50 - 5.50 M/mcL LAB HEMETOLOGY METHOD 08/12/2024 6:48 AM [facility] Hemoglobin 9.9(L) 13.5 - 17.5 g/dL LAB HEMETOLOGY METHOD 08/12/2024 6:48 AM [facility] Hematocrit 31.3(L) 42.0 - 54.0 % LAB HEMETOLOGY METHOD 08/12/2024 6:48 AM [facility] MCV 83.0 79.0 - 98.0 FL LAB HEMETOLOGY METHOD 08/12/2024 6:48 AM [facility] MCH 26.3(L) 27.0 - 32.0 pcg LAB HEMETOLOGY METHOD 08/12/2024 6:48 AM [facility] MCHC 31.6(L) 32.0 - 37.0 g/dL LAB HEMETOLOGY METHOD 08/12/2024 6:48 AM [facility] RDW 16.4(H) 11.0 - 15.0 % LAB HEMETOLOGY METHOD 08/12/2024 6:48 AM [facility] Platelets 207 130 - 400 K/mcL LAB HEMETOLOGY METHOD 08/12/2024 6:48 AM [facility] LAB MPV 10.3 7.0 - 11.0 FL LAB HEMETOLOGY METHOD 08/12/2024 6:48 AM [facility] NRBC 0.0 <1.0 % LAB HEMETOLOGY METHOD 08/12/2024 6:48 AM [facility] NRBC Absolute 0.00 <0.10 K/mcL LAB HEMETOLOGY METHOD 08/12/2024 6:48 AM [facility] Neutrophils Relative 41.0 % LAB HEMETOLOGY METHOD 08/12/2024 6:48 AM [facility] Lymphocytes Relative 34.3 % LAB HEMETOLOGY METHOD 08/12/2024 6:48 AM [facility] Monocytes Relative 14.5 % LAB HEMETOLOGY METHOD 08/12/2024 6:48 AM [facility] Eosinophils Relative 8.8 % LAB HEMETOLOGY METHOD 08/12/2024 6:48 AM [facility] Basophils Relative 1.1 % LAB HEMETOLOGY METHOD 08/12/2024 6:48 AM [facility] Immature Granulocytes Relative 0.3 % LAB HEMETOLOGY METHOD 08/12/2024 6:48 AM [facility] Neutrophils Absolute 1.53 1.50 - 7.00 K/mcL LAB HEMETOLOGY METHOD 08/12/2024 6:48 AM [facility] Lymphocytes Absolute 1.28 1.00 - 5.00 K/mcL LAB HEMETOLOGY METHOD 08/12/2024 6:48 AM [facility] Monocytes Absolute 0.54 0.20 - 1.00 K/mcL LAB HEMETOLOGY METHOD 08/12/2024 6:48 AM [facility] Eosinophils Absolute 0.33 0.00 - 0.50 K/mcL LAB HEMETOLOGY METHOD 08/12/2024 6:48 AM [facility] Basophils Absolute 0.04 0.00 - 0.20 K/mcL LAB HEMETOLOGY METHOD 08/12/2024 6:48 AM [facility] Immature Granulocytes Absolute 0.01 0.00 - 0.03 K/mcL LAB HEMETOLOGY METHOD 08/12/2024 6:48 AM [facility] Blood Venous blood specimen / Unknown 08/12/2024 5:42 AM EDT 08/12/2024 6:29 AM EDT Jeramie Schwartz MD LAB BLOOD ORDERABLES Final Resul t [facility] ([facility]) [facility] [address] [place] [address], documented in this encounter Visit Diagnoses Diagnosis 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 unspecified duration, sequela (CMS/HCC V24) Essential (primary) hypertension Unspecified essential hypertension Other superintendent terminal (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 documented in this encounter Care Teams Air Press Operator Relationship Specialty Start Date End Date Jeramie Schwartz MD [address] [place], [place] PCP - General Internal Medicine 06/02/24 documented as of this encounter
--- OUTSIDE RECORDS SUMMARY | 2025-04-30 12:50 | XMS_ITS | Encounter Summary ---
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 Social History Tobacco Use [...] DIFFERENTIAL Routine 09/17/2024 5:30 AM EDT 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 CBC AND DIFFERENTIAL Routine 09/17/2024 5:30 AM EDT Other alf (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 documented in this encounter Results * (ABNORMAL) CBC auto differential (09/17/2024 5:30 AM EDT) WBC 2.9(L) 4.8 - 10.8 K/[facility] LAB HEMETOLOGY METHOD 09/17/2024 7:42 AM EDT [facility] RBC 4.50 4.50 - 5.50 M/[facility] LAB HEMETOLOGY METHOD 09/17/2024 7:42 AM EDT [facility] Hemoglobin 11.6(L) 13.5 - 17.5 g/dL LAB HEMETOLOGY METHOD 09/17/2024 7:42 AM [facility] LAB Hematocrit 37.5(L) 42.0 - 54.0 % LAB HEMETOLOGY METHOD 09/17/2024 7:42 AM [facility] LAB MCV 84.1 79.0 - 98.0 FL LAB HEMETOLOGY METHOD 09/17/2024 7:42 AM [facility] LAB MCH 26.0(L) 27.0 - 32.0 pcg LAB HEMETOLOGY METHOD 09/17/2024 7:42 AM [facility] LAB MCHC 30.9(L) 32.0 - 37.0 g/dL LAB HEMETOLOGY METHOD 09/17/2024 7:42 AM [facility] LAB RDW 16.8(H) 11.0 - 15.0 % LAB HEMETOLOGY METHOD 09/17/2024 7:42 AM [facility] LAB Platelets 233 130 - 400 K/mcL LAB HEMETOLOGY METHOD 09/17/2024 7:42 AM [facility] LAB MPV 11.0 7.0 - 11.0 FL LAB HEMETOLOGY METHOD 09/17/2024 7:42 AM [facility] LAB NRBC 0.0 <1.0 % LAB HEMETOLOGY METHOD 09/17/2024 7:42 AM [facility] LAB NRBC Absolute 0.00 <0.10 K/mcL LAB HEMETOLOGY METHOD 09/17/2024 7:42 AM [facility] LAB Neutrophils Relative 48.3 % LAB HEMETOLOGY METHOD 09/17/2024 7:42 AM [facility] LAB Lymphocytes Relative 27.9 % LAB HEMETOLOGY METHOD 09/17/2024 7:42 AM [facility] LAB Monocytes Relative 15.6 % LAB HEMETOLOGY METHOD 09/17/2024 7:42 AM EDT [facility] Eosinophils Relative 7.5 % LAB HEMETOLOGY METHOD 09/17/2024 7:42 AM EDT [facility] Basophils Relative 0.7 % LAB HEMETOLOGY METHOD 09/17/2024 7:42 AM EDT [facility] Immature Granulocytes Relative 0.0 % LAB HEMETOLOGY METHOD 09/17/2024 7:42 AM EDT [facility] Neutrophils Absolute 1.42(L) 1.50 - 7.00 K/mcL LAB HEMETOLOGY METHOD 09/17/2024 7:42 AM EDT [facility] Lymphocytes Absolute 0.82(L) 1.00 - 5.00 K/mcL LAB [facility]ETOLOGY [facility] Monocytes Absolute 0.46 0.20 - 1.00 K/mcL LAB HEMETOLOGY METHOD 09/17/2024 7:42 AM EDT [facility] Eosinophils Absolute 0.22 0.00 - 0.50 K/mcL LAB HEMETOLOGY METHOD 09/17/2024 7:42 AM [facility] Basophils Absolute 0.02 0.00 - 0.20 K/mcL LAB HEMETOLOGY METHOD 09/17/2024 7:42 AM EDT [facility] Immature Granulocytes Absolute 0.00 0.00 - 0.03 K/mcL LAB HEMETOLOGY METHOD 09/17/2024 7:42 AM T [facility] Blood Venous blood specimen / Unknown 09/17/2024 5:30 AM EDT 09/17/2024 6:43 AM EDT us Jeramie Schwartz MD LAB BLOOD ORDERABLES Final Resul t [facility] [address] [place] [address], [place] [phone] documented in this encounter Visit Diagnoses Diagnosis Other alf (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 documented in this encounter Care Teams Employee Relations Specialist Relationship Specialty Start Date End Date Jeramie Schwartz MD [address] [place] [address] [address] [place] PCP - General Internal Medicine 06/02/24 documented as of this encounter
--- OUTSIDE RECORDS SUMMARY | 2025-04-30 12:50 | XMS_ITS | Encounter Summary ---
Author Organization [facility] Address [address] [place] [address] Care Team Providers Care Log Getter Name Role Phone Jeramie Schwartz MD Primary Care Provider [phone] Encounter Details Date Type Department Care Team (Late st Contact Info) Description 05/06/2024 Lab Requisition [facility] - Main Lab [address] [place] [address] Jeramie Schwartz MD [address] [place] [address] [address] [place], [place] Diffuse traumatic brain injury with loss [...] AM EST) WBC 3.2(L) 4.8 - 10.8 K/[facility] LAB HEMETOLOGY METHOD 05/06/2024 10:51 AM EST [facility] RBC 4.40(L) 4.50 - 5.50 M/mcL LAB HEMETOLOGY METHOD 05/06/2024 10:51 AM [facility] Hemoglobin 11.0(L) 13.5 - 17.5 g/dL LAB HEMETOLOGY METHOD 05/06/2024 10:51 AM [facility] LAB Hematocrit 35.7(L) 42.0 - 54.0 % LAB HEMETOLOGY METHOD 05/06/2024 10:51 AM [facility] LAB MCV 81.7 79.0 - 98.0 FL LAB HEMETOLOGY METHOD 05/06/2024 10:51 AM [facility] LAB MCH 25.2(L) 27.0 - 32.0 pcg LAB HEMETOLOGY METHOD 05/06/2024 10:51 AM [facility] MCHC 30.8(L) 32.0 - 37.0 g/dL LAB HEMETOLOGY METHOD 05/06/2024 10:51 AM [facility] LAB RDW 17.8(H) 11.0 - 15.0 % LAB HEMETOLOGY METHOD 05/06/2024 10:51 AM [facility] LAB Platelets 333 130 - 400 K/mcL LAB HEMETOLOGY METHOD 05/06/2024 10:51 AM [facility] LAB MPV 10.1 7.0 - 11.0 FL LAB HEMETOLOGY METHOD 05/06/2024 10:51 AM [facility] LAB NRBC 0.0 <1.0 % LAB HEMETOLOGY METHOD 05/06/2024 10:51 AM [facility] LAB NRBC Absolute 0.00 <0.10 K/mcL LAB HEMETOLOGY METHOD 05/06/2024 10:51 AM [facility] Neutrophils Relative 40.9 % LAB HEMETOLOGY METHOD 05/06/2024 10:51 AM [facility] Lymphocytes Relative 35.1 % LAB HEMETOLOGY METHOD 05/06/2024 10:51 AM [facility] Monocytes Relative 13.9 % LAB HEMETOLOGY METHOD 05/06/2024 10:51 AM [facility] Eosinophils Relative 9.2 % LAB HEMETOLOGY METHOD 05/06/2024 10:51 AM [facility] Basophils Relative 0.6 % LAB HEMETOLOGY METHOD 05/06/2024 10:51 AM [facility] Immature Granulocytes Relative 0.3 % LAB HEMETOLOGY METHOD 05/06/2024 10:51 AM [facility] Neutrophils Absolute 1.29(L) 1.50 - 7.00 K/mcL LAB HEMETOLOGY METHOD 05/06/2024 10:51 AM [facility] Lymphocytes Absolute 1.11 1.00 - 5.00 K/mcL LAB HEMETOLOGY METHOD 05/06/2024 10:51 AM [facility] Monocytes Absolute 0.44 0.20 - 1.00 K/mcL LAB HEMETOLOGY METHOD 05/06/2024 10:51 AM [facility] LAB Eosinophils Absolute 0.29 0.00 - 0.50 K/mcL LAB HEMETOLOGY METHOD 05/06/2024 10:51 AM [facility] Basophils Absolute 0.02 0.00 - 0.20 K/mcL LAB HEMETOLOGY METHOD 05/06/2024 10:51 AM [facility] LAB Immature Granulocytes Absolute 0.01 0.00 - 0.03 K/mcL LAB HEMETOLOGY METHOD 05/06/2024 10:51 AM [facility] LAB Blood Venous blood specimen / Unknown 05/06/2024 9:05 AM EST 05/06/2024 10:16 AM EST us Jeramie Schwartz MD LAB BLOOD ORDERABLES Final Resul t [facility] [address] [place] [address], documented in this encounter Visit Diagnoses Diagnosis 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 unspecified duration, sequela (CMS/HCC V24) documented in this encounter Care Teams Log Getter Relationship Specialty Start Date End Date Jeramie Schwartz MD [address] [place] [address] Dr [address] [place], [place] PCP - General Internal Medicine 06/02/24 documented as of this encounter
--- OUTSIDE RECORDS SUMMARY | 2025-04-30 12:50 | XMS_ITS | Encounter Summary ---
Author Organization [facility] Address [address] [place] [address] Care Team Providers Care Saute Chef Name Role Phone Jeramie Schwartz MD Primary Care Provider [phone] Encounter Details Date Type Department Care Team (Latest Contact Info) Description 01/14/2025 Lab Requisition [facility] - Main Lab [address] [place] [address] Jeramie Schwartz MD [address] [place] [address] Dr [address] [place] Type 2 diabetes mellitus with mild [...] CBC auto differential (01/14/2025 6:33 AM EDT) [facility] WBC 5.6 4.8 - 10.8 K/mcL LAB HEMETOLOGY METHOD 01/14/2025 8:09 AM [facility] RBC 5.40 4.50 - 5.50 M/mcL LAB HEMETOLOGY METHOD 01/14/2025 8:09 AM [facility] Hemoglobin 13.8 13.5 - 17.5 g/dL LAB HEMETOLOGY METHOD 01/14/2025 8:09 AM [facility] Hematocrit 44.6 42.0 - 54.0 % LAB HEMETOLOGY METHOD 01/14/2025 8:09 AM [facility] MCV 82.4 79.0 - 98.0 FL LAB HEMETOLOGY METHOD 01/14/2025 8:09 AM [facility] MCH 25.5(L) 27.0 - 32.0 pcg LAB HEMETOLOGY METHOD 01/14/2025 8:09 AM [facility] MCHC 30.9(L) 32.0 - 37.0 g/dL LAB HEMETOLOGY METHOD 01/14/2025 8:09 AM [facility] RDW 17.2(H) 11.0 - 15.0 % LAB HEMETOLOGY METHOD 01/14/2025 8:09 AM [facility] Platelets 149 130 - 400 K/mcL LAB HEMETOLOGY METHOD 01/14/2025 8:09 AM [facility] MPV LAB HEMETOLOGY METHOD 01/14/2025 8:09 AM [facility] Comment:Not Measured NRBC 0.0 <1.0 % LAB HEMETOLOGY METHOD 01/14/2025 8:09 AM [facility] NRBC Absolute 0.00 <0.10 K/mcL LAB HEMETOLOGY METHOD 01/14/2025 8:09 AM [facility] Neutrophils Relative 82.4 % LAB HEMETOLOGY METHOD 01/14/2025 8:09 AM [facility] Lymphocytes Relative 12.9 % LAB HEMETOLOGY METHOD 01/14/2025 8:09 AM [facility] Monocytes Relative 3.9 % LAB HEMETOLOGY METHOD 01/14/2025 8:09 AM [facility] Eosinophils Relative 0.2 % LAB HEMETOLOGY METHOD 01/14/2025 8:09 AM [facility] Basophils Relative 0.2 % LAB HEMETOLOGY METHOD 01/14/2025 8:09 AM [facility] Immature Granulocytes Relative 0.4 % LAB HEMETOLOGY METHOD 01/14/2025 8:09 AM [facility] Neutrophils Absolute 4.62 1.50 - 7.00 K/mcL LAB HEMETOLOGY METHOD 01/14/2025 8:09 AM [facility] Lymphocytes Absolute 0.72(L) 1.00 - 5.00 K/mcL LAB HEMETOLOGY METHOD 01/14/2025 8:09 AM [facility] Monocytes Absolute 0.22 0.20 - 1.00 K/mcL LAB HEMETOLOGY METHOD 01/14/2025 8:09 AM [facility] Eosinophils Absolute 0.01 0.00 - 0.50 K/mcL LAB HEMETOLOGY METHOD 01/14/2025 8:09 AM [facility] Basophils Absolute 0.01 0.00 - 0.20 K/mcL LAB HEMETOLOGY METHOD 01/14/2025 8:09 AM [facility] Immature Granulocytes Absolute 0.02 0.00 - 0.03 K/mcL LAB HEMETOLOGY METHOD 01/14/2025 8:09 AM [facility] Blood Venous blood specimen / Unknown 01/14/2025 6:33 AM EDT 01/14/2025 7:58 AM EDT us Jeramie Schwartz MD LAB BLOOD ORDERABLES Final Resul t Performing Organization Address [facility] Co de Phone Number [facility] [address] [place] [address], [place] [phone] * Hemoglobin A1c (01/14/2025 6:33 AM EDT) Hemoglobin A1C 5.9 <6.5 % LAB CHEMISTRY METHOD 01/14/2025 11:10 AM EDT [facility] Mean Bld Glu Estim. 123 mg/dL LAB CHEMISTRY METHOD 01/14/2025 11:10 AM EDT [facility] Blood Venous blood specimen / Unknown 01/14/2025 6:33 AM EDT 01/14/2025 7:58 AM EDT us Jeramie Schwartz MD LAB BLOOD ORDERABLES Final Resul t Performing Organization Address [facility] Co de Phone Number [facility] [address] [place] [address], [place] [phone] documented in this encounter Visit Diagnoses Diagnosis Type 2 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, left eye (CMS/[facility] V24, [facility] V28) documented in this encounter Care Teams Saute Chef Relationship Specialty Start Date End Date Jeramie Schwartz MD [address] [place] [address] Dr [address] [place] PCP - General Internal Medicine 06/02/24 documented as of this encounter
--- OUTSIDE RECORDS SUMMARY | 2025-04-30 12:50 | XMS_ITS | Encounter Summary ---
Author Organization [facility] Address [address] [place] [address] Care Team Providers Care Congregational Care Pastor Name Role Phone Jeramie Schwartz MD Primary Care Provider [phone] Encounter Details Date Type Department Care Team (Late st Contact Info) Description 08/19/2024 Lab Requisition [facility] - Main Lab [address] 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 Social History Tobacco Use [...] (CMS/HCC V24) Other jail (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 CBC AND DIFFERENTIAL Routine 08/19/2024 6:12 AM EDT 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 unspecified duration, sequela (CMS/HCC V24) Other jail (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 documented in this encounter Results * (ABNORMAL) CBC auto differential (08/19/2024 6:12 AM EDT) WBC 3.2(L) 4.8 - 10.8 K/mcL LAB HEMETOLOGY METHOD 08/19/2024 8:30 AM [facility] RBC 4.30(L) 4.50 - 5.50 M/mcL LAB HEMETOLOGY METHOD 08/19/2024 8:30 AM [facility] Hemoglobin 11.2(L) 13.5 - 17.5 g/dL LAB HEMETOLOGY METHOD 08/19/2024 8:30 AM [facility] Hematocrit 35.9(L) 42.0 - 54.0 % LAB HEMETOLOGY METHOD 08/19/2024 8:30 AM [facility] MCV 84.1 79.0 - 98.0 FL LAB HEMETOLOGY METHOD 08/19/2024 8:30 AM [facility] MCH 26.2(L) 27.0 - 32.0 pcg LAB HEMETOLOGY METHOD 08/19/2024 8:30 AM [facility] MCHC 31.2(L) 32.0 - 37.0 g/dL LAB HEMETOLOGY METHOD 08/19/2024 8:30 AM [facility] RDW 17.1(H) 11.0 - 15.0 % LAB HEMETOLOGY METHOD 08/19/2024 8:30 AM [facility] Platelets 284 130 - 400 K/mcL LAB HEMETOLOGY METHOD 08/19/2024 8:30 AM [facility] MPV 12.1(H) 7.0 - 11.0 FL LAB HEMETOLOGY METHOD 08/19/2024 8:30 AM [facility] NRBC 0.0 <1.0 % LAB HEMETOLOGY METHOD 08/19/2024 8:30 AM [facility] NRBC Absolute 0.00 <0.10 K/mcL LAB HEMETOLOGY METHOD 08/19/2024 8:30 AM [facility] Neutrophils Relative 52.3 % LAB HEMETOLOGY METHOD 08/19/2024 8:30 AM [facility] Lymphocytes Relative 27.2 % LAB HEMETOLOGY METHOD 08/19/2024 8:30 AM [facility] Monocytes Relative 13.3 % LAB HEMETOLOGY METHOD 08/19/2024 8:30 AM [facility] Eosinophils Relative 6.3 % LAB HEMETOLOGY METHOD 08/19/2024 8:30 AM [facility] Basophils Relative 0.6 % LAB HEMETOLOGY METHOD 08/19/2024 8:30 AM [facility] Immature Granulocytes Relative 0.3 % LAB HEMETOLOGY METHOD 08/19/2024 8:30 AM [facility] Neutrophils Absolute 1.65 1.50 - 7.00 K/mcL LAB HEMETOLOGY METHOD 08/19/2024 8:30 AM [facility] Lymphocytes Absolute 0.86(L) 1.00 - 5.00 K/mcL LAB HEMETOLOGY METHOD 08/19/2024 8:30 AM [facility] Monocytes Absolute 0.42 0.20 - 1.00 K/mcL LAB HEMETOLOGY METHOD 08/19/2024 8:30 AM [facility] Eosinophils Absolute 0.20 0.00 - 0.50 K/mcL LAB HEMETOLOGY METHOD 08/19/2024 8:30 AM [facility] Basophils Absolute 0.02 0.00 - 0.20 K/mcL LAB HEMETOLOGY METHOD 08/19/2024 8:30 AM [facility] Immature Granulocytes Absolute 0.01 0.00 - 0.03 K/mcL LAB HEMETOLOGY METHOD 08/19/2024 8:30 AM [facility] Blood Venous blood specimen / Unknown 08/19/2024 6:12 AM EDT 08/19/2024 7:24 AM EDT us Jeramie Schwartz MD LAB BLOOD ORDERABLES Final Resul t [facility] ([facility]) [facility] [address] [place] [address], documented in this encounter Visit Diagnoses Diagnosis 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 unspecified duration, sequela (CMS/HCC V24) Other jail (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 documented in this encounter Care Teams Congregational Care Pastor Relationship Specialty Start Date End Date Jeramie Schwartz MD [address] [place] [address] Dr [address] [place], [place] PCP - General Internal Medicine 06/02/24 documented as of this encounter
== END 2025-04-30 12:49 | disposition home or self-care (01) ==
LOC: HO.CT 12:48
PROVIDERS: PCP Hospitalist; Visit Provider Hospitalist
DX: J18.9 Pneumonia, unspecified organism (principal)
CPT/HCPCS: 71250

== ENCOUNTER → 2025-04-30 12:49 | Outpatient (BNV) | payer MEDICARE, MEDICAID, SELFPAY | PROVIDERS: PCP Hospitalist; Visit Provider Radiology Diagnostic Ultrasound | DX: J18.9 Pneumonia, unspecified organism (principal); J84.10 Pulmonary fibrosis, unspecified; R91.1 Solitary pulmonary nodule | CPT/HCPCS: 71250 ==